=== PATIENT | female | born 1950 | race Caucasian/White ===

== ENCOUNTER 2016-08-06 12:08 | Inpatient (IN) | payer OTHER ==
[~2016-08-06] VITALS: Ht 160 cm; Wt 113.4 kg
[~2016-08-06 12:08] MED LIST: HYDR-2666 PO; HYDR-963 PO; OXYC30TA PO
[2016-08-06 13:06] LABS: BASO # 0.1 x10^3/uL (0.0-0.2); BASO % 1 % (0-3); EOS % 0 % (0-3); HEMATOCRIT 38.3 % (36.0-47.0); HEMOGLOBIN 12.5 g/dL (12.0-15.5); LYMPH # 2.1 x10^3/uL (1.0-4.8); LYMPH % 14 % (24-48); MEAN CORPUSCULAR HEMOGLOBIN 29 pg (25-35); MEAN CORPUSCULAR HGB CONC 33 g/dL (31-37); MEAN CORPUSCULAR VOLUME 90 fL (79-100); MONO % 8 % (0-9); NEUT % 77 % (31-73); PLATELET COUNT 373 x10^3/uL (140-400); RED BLOOD COUNT 4.26 x10^6/uL (3.50-5.40); RED CELL DISTRIBUTION WIDTH 13.8 % (11.5-14.5); WHITE BLOOD COUNT 14.8 x10^3/uL (4.0-11.0)
[2016-08-06 13:08] LABS: BILIRUBIN,URINE SMALL (NEG); GLUCOSE,URINE NEGATIVE (NEG); NITRITE,URINE NEGATIVE (NEG); PROTEIN,URINE 30 mg/dL (NEG-TRACE); UROBILINOGEN,URINE 0.2 mg/dL (0.2 mg/dL)
--- NOTE | 2016-08-06 13:11 | PHYS DOC ---
Past Medical History Past Medical History: GERD, Hypertension, MRSA, Other Additional Past Medical Histor: "bladder problems" Past Surgical History: Appendectomy, Cholecystectomy, Tonsillectomy, Other Additional Past Surgical Histo: R AKA, hernia Alcohol Use: None Drug Use: None Adult General Chief Complaint Chief Complaint: ABDOMINAL PAIN HPI HPI 66-year-old female who states she's having significant lower abdominal pain is worse over last several days. She is on ongoing triple therapy for H. pylori infection. She also recently finished antibiotic course for a UTI. She states she's had loose stools for the last several days and she believes her last bowel movement was earlier today. She localizes all her pain primarily to the lower abdomen but does state diffusely is tender. She's had history of cholecystectomy, appendectomy. She placed a call to her regular physician on Thursday who was going to schedule her for CT scan for tomorrow but she states her pain is too severe to make that imaging appointment. Patient is somewhat hard of hearing so history is primarily obtained from sister at bedside. Review of Systems Review of Systems Constitutional: Denies fever or chills [] Eyes: Denies change in visual acuity, redness, or eye pain [] HENT: Denies nasal congestion or sore throat [] Respiratory: Denies cough or shortness of breath [] Cardiovascular: No additional information not addressed in HPI [] GI: Has abdominal pain, has nausea, denies vomiting, denies bloody stools, has diarrhea [] : Denies dysuria or hematuria [] Musculoskeletal: Denies back pain or joint pain [] Integument: Denies rash or skin lesions [] Neurologic: Denies headache, focal weakness or sensory changes [] Endocrine: Denies polyuria or polydipsia [] Current Medications Current Medications Current Medications Medications (Trade) Dose Ordered Sig/Haim Start Time Stop Time Status Last Admin Dose Admin Info (Do NOT chart on this entry -- for MONITORING) 1 each PRN DAILY PRN 08/06/16 13:45 08/08/16 13:44 Iohexol (Omnipaque 300 Mg/ml) 75 ml 1X ONCE 08/06/16 13:45 08/06/16 13:46 DC 08/06/16 13:56 75 ML Morphine Sulfate 4 mg 1X ONCE 08/06/16 13:15 08/06/16 13:16 DC 08/06/16 13:49 4 MG Ondansetron HCl (Zofran) 4 mg 1X ONCE 08/06/16 13:15 08/06/16 13:16 DC 08/06/16 13:49 4 MG Sodium Chloride (Iv Sodium Chloride 0.9% 1000ml Bag) 1,000 ml @ 1,000 mls/hr 1X ONCE 08/06/16 13:15 08/06/16 14:14 DC 08/06/16 13:50 1,000 MLS/HR Allergies Allergies Allergies Coded Allergies Type Severity Reaction Last Updated Verified codeine Allergy Unknown 11/08/14 Yes Physical Exam Physical Exam Constitutional: Well developed, well nourished, no acute distress, non-toxic appearance. [] HENT: Normocephalic, atraumatic, bilateral external ears normal, oropharynx moist, no oral exudates, nose normal. [] Eyes: PERRLA, EOMI, conjunctiva normal, no discharge. [] Neck: Normal range of motion, no tenderness, supple, no stridor. [] Cardiovascular:Heart rate regular rhythm, no murmur [] Lungs & Thorax: Bilateral breath sounds clear to auscultation [] Abdomen: Bowel sounds normal, soft, moderate lower abdominal tenderness, no masses, no pulsatile masses. [] Skin: Warm, dry, no erythema, no rash. [] Back: No tenderness, no CVA tenderness. [] Extremities: No tenderness, no cyanosis, no clubbing, ROM intact, no edema. [] Neurologic: Alert and oriented X 3, normal motor function, normal sensory function, no focal deficits noted. [] Psychologic: Affect normal, judgement normal, mood normal. [] Current Patient Data Vital Signs Vital Signs Date Time Temp Pulse Resp B/P Pulse Ox O2 Delivery O2 Flow Rate FiO2 08/06/16 14:09 89 16 135/89 94 Room Air 08/06/16 12:12 99.0 99.0 Lab Values Laboratory Tests Test 08/06/16 12:50 08/06/16 12:55 White Blood Count 14.8x10^3/uL (4.0-11.0) H Red Blood Count 4.26x10^6/uL (3.50-5.40) Hemoglobin 12.5g/dL (12.0-15.5) Hematocrit 38.3% (36.0-47.0) Mean Corpuscular Volume 90fL (79-100) Mean Corpuscular Hemoglobin 29pg (25-35) Mean Corpuscular Hemoglobin Concent 33g/dL (31-37) Red Cell Distribution Width 13.8% (11.5-14.5) Platelet Count 373x10^3/uL (140-400) Neutrophils (%) (Auto) 77% (31-73) H Lymphocytes (%) (Auto) 14% (24-48) L Monocytes (%) (Auto) 8% (0-9) Eosinophils (%) (Auto) 0% (0-3) Basophils (%) (Auto) 1% (0-3) Neutrophils # (Auto) 11.4x10^3uL (1.8-7.7) H Lymphocytes # (Auto) 2.1x10^3/uL (1.0-4.8) Monocytes # (Auto) 1.2x10^3/uL (0.0-1.1) H Eosinophils # (Auto) 0.0x10^3/uL (0.0-0.7) Basophils # (Auto) 0.1x10^3/uL (0.0-0.2) Sodium Level 142mmol/L (136-145) Potassium Level 3.6mmol/L (3.5-5.1) Chloride Level 105mmol/L (98-107) Carbon Dioxide Level 30mmol/L (21-32) Anion Gap 7 (6-14) Blood Urea Nitrogen 13mg/dL (7-20) Creatinine 0.9mg/dL (0.6-1.0) Estimated GFR (Cockcroft-Gault) 62.6 Glucose Level 115mg/dL (70-99) H Calcium Level 8.4mg/dL (8.5-10.1) L Total Bilirubin 0.4mg/dL (0.2-1.0) Direct Bilirubin 0.1mg/dL (0.0-0.2) Aspartate Amino Transferase (AST) 22U/L (15-37) Alanine Aminotransferase (ALT) 12U/L (14-59) L Alkaline Phosphatase 90U/L (46-116) Troponin I Quantitative < 0.017ng/mL (0.000-0.055) Total Protein 7.4g/dL (6.4-8.2) Albumin 2.2g/dL (3.4-5.0) L Lipase 92U/L (73-393) Urine Collection Type Unknown Urine Color [place] Urine Clarity Clear Urine pH 6.0 Urine Specific [place] 1.025 Urine Protein 30mg/dL (NEG-TRACE) Urine Glucose (UA) Negativemg/dL (NEG) Urine Ketones (Stick) 40mg/dL (NEG) Urine Blood Negative (NEG) Urine Nitrite Negative (NEG) Urine Bilirubin Small (NEG) Urine Urobilinogen Dipstick 0.2mg/dL (0.2 mg/dL) Urine Leukocyte Esterase Trace (NEG) Urine RBC Occ/HPF (0-2) Urine WBC Occ/HPF (0-4) Urine Squamous Epithelial Cells Few/LPF Urine Bacteria 0/HPF (0-FEW) Urine Mucus Mod/LPF Laboratory Tests 08/06/16 12:50 Laboratory Tests 08/06/16 12:50 EKG EKG EKG as interpreted by me shows a sinus rhythm with a rate of 80 bpm. There are no acute ischemic findings on this EKG. Intervals are normal. EKG does not meet STEMI criteria. Radiology/Procedures Radiology/Procedures CT of the abdomen/pelvis with IV contrast demonstrates the following: Indication low abdominal pain for 2 weeks. Axial images through the abdomen and pelvis were obtained. Oral contrast was not administered. 75 cc of Omnipaque 300 was. Note is made of a previous examination of the abdomen 04/05/2012. A previous examination of the abdomen and pelvis 02/13/2011 is also noted. The lung bases are clear. Postoperative changes in the abdominal wall are noted. There is some fatty infiltration of the liver. A hepatic mass is not seen. Clips are noted in the gallbladder fossa. The spleen appears unremarkable. The pancreas appears unremarkable. No renal or adrenal abnormalities are seen. Acute finding in the abdomen is not seen. There are occasional sigmoid diverticula. There is some suggested wall thickening involving the sigmoid colon extending over approximately a 5 to 6 cm segment. There may be some associated low-grade inflammatory changes. A discrete abscess, amenable to drainage is not seen. A soft tissue mass in the sigmoid colon is not excluded and if colonoscopy has not been recently performed this should be considered. Additional finding in the pelvis is not seen. Scoliosis and degenerative changes are noted in the lumbar spine. IMPRESSION: Suggested pathology involving the sigmoid colon. Low-grade inflammation in the sigmoid colon is not excluded but an underlying mass should be considered. If colonoscopy has not been recently performed this should be considered Course & Med Decision Making Course & Med Decision Making Pertinent Labs and Imaging studies reviewed. (See chart for details) This 66-year-old female who's having lower abdominal tenderness while on triple therapy for an H. pylori infection will have a CT of her abdomen and pelvis to rule out any acute cause. A fluid bolus and blood work will be obtained. Her bloodwork does not reveal any acute abnormalities. CT of her abdomen and pelvis mistreated an area of low-grade inflammation in the sigmoid colon but an underlying mass could not be ruled out and so a colonoscopy is recommended. I' ll be admitting her under Dr. Heaton for these findings and will be adding a GI consult to have a colonoscopy done to delineate the area of the sigmoid colon in question. I discussed the CT findings with Dr. Heaton who agreed to accept the patient for further evaluation treatment. Dragon Disclaimer Dragon Disclaimer This electronic medical record was generated, in whole or in part, using a voice recognition dictation system. Departure Departure Impression: Primary Impression: Abdominal pain Disposition: ADMITTED INPATIENT Admitting Physician: Grazyna Heaton Condition: STABLE Referrals: Yao HEATON MD (PCP) JOSE GODFREY DO Aug 06, 2016 13:11
[2016-08-06] MEDS ORDERED: MORPHINE SULFATE 4 MG/ML DISP.SYRIN. IV ONE ×2 (13:15→17:30)
[2016-08-06] MEDS ORDERED: IV NORMAL SALINE 1000ML BAG 1,000 ML IV ONE (13:15)
[2016-08-06] MEDS ORDERED: ONDANSETRON PF 4 MG/2 ML VIAL. IV ONE (13:15)
[2016-08-06 13:28] LABS: CALCIUM 8.4 mg/dL (8.5-10.1); CREATININE 0.9 mg/dL (0.6-1.0); GFR 62.6; POTASSIUM 3.6 mmol/L (3.5-5.1)
[2016-08-06 13:33] LABS: BACTERIA,URINE 0 /HPF (0-FEW); RBC,URINE OCC /HPF (0-2); SQUAMOUS EPITHELIAL CELL,UR FEW /LPF; WBC,URINE OCC /HPF (0-4)
[2016-08-06 13:35] LABS: ALBUMIN 2.2 g/dL (3.4-5.0); DIRECT BILIRUBIN 0.1 mg/dL (0.0-0.2); TOTAL BILIRUBIN 0.4 mg/dL (0.2-1.0); TOTAL PROTEIN 7.4 g/dL (6.4-8.2)
[2016-08-06] MEDS ORDERED: IOHEXOL 300 MG/ML 75 ML VIAL IV ONE (13:45)
[2016-08-06] MEDS ORDERED: CONTRAST GIVEN MC PRN (13:45)
--- NOTE | 2016-08-06 14:23 | EKG ---
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
--- NOTE | 2016-08-06 14:30 | RAD ---
Indication low abdominal pain for 2 weeks. Axial images through the abdomen and pelvis were obtained. Oral contrast was not administered. 75 cc of Omnipaque 300 was. Note is made of a previous examination of the abdomen 04/05/2012. A previous examination of the abdomen and pelvis 02/13/2011 is also noted. The lung bases are clear. Postoperative changes in the abdominal wall are noted. There is some fatty infiltration of the liver. A hepatic mass is not seen. Clips are noted in the gallbladder fossa. The spleen appears unremarkable. The pancreas appears unremarkable. No renal or adrenal abnormalities are seen. Acute finding in the abdomen is not seen. There are occasional sigmoid diverticula. There is some suggested wall thickening involving the sigmoid colon extending over approximately a 5 to 6 cm segment. There may be some associated low-grade inflammatory changes. A discrete abscess, amenable to drainage is not seen. A soft tissue mass in the sigmoid colon is not excluded and if colonoscopy has not been recently performed this should be considered. Additional finding in the pelvis is not seen. Scoliosis and degenerative changes are noted in the lumbar spine. IMPRESSION: Suggested pathology involving the sigmoid colon. Low-grade inflammation in the sigmoid colon is not excluded but an underlying mass should be considered. If colonoscopy has not been recently performed this should be considered
[2016-08-06] MEDS ORDERED: ONDANSETRON PF 4 MG/2 ML VIAL. IV PRN (15:15)
[2016-08-06] MEDS ORDERED: ACETAMINOPHEN 325 MG TABLET. PO PRN (15:15)
--- NOTE | 2016-08-06 15:50 | ACF ---
Admission Forms Criteria ABDOMINAL PAIN Clinical Indications for Admission to Inpatient Care (Place 'X' for any and all applicable criteria): Admission is indicated for ANY ONE of the following(1)(2)(3)(4)(5): [X]I. Inpatient admission required rather than observation care (Also use Abdominal Pain: Observation Care, as appropriate) because of ANY ONE of the following: [ ]a) Severe pain requiring acute inpatient management [X]b) Identification of etiology/finding that requires inpatient care (eg, aortic dissection, free air) [ ]c) Absent bowel sounds with complete ileus(6) [ ]d) Suspected toxic megacolon [ ]e) Severe electrolyte abnormalities requiring inpatient care [ ]f) High fever or infection requiring inpatient admission as indicated by ANY ONE of following(7)(8): [ ] i) Appropriate outpatient or observational care antimicrobial treatment unavailable, not effective, or not feasible [ ] ii) Documented bacteremia [ ] iii) Temperature > 104.9 degrees F (oral) [ ] iv) T >103.1 F (oral) or < 96.8 F(rectal) that does not respond to all emergency treatment measures [ ]g) Signs of intestinal obstruction [B] [ ]h) Hemodynamic instability [ ]i) IV fluid to replace significant ongoing losses (greater than 3 L/m2 per day) (12)(13) [ ]j) Percutaneous or open drainage (eg, abscess, biliary tract ) procedures [ ]k) Parenteral nutrition regimen that must be implemented on inpatient basis [ ]l) Other condition,treatment or monitoring requiring inpatient admission. [ ]II. Peritoneal signs present [ ]III. Surgery needed that cannot be performed on an ambulatory basis. [ ]IV. Evaluation requires patient to not eat or drink for extended period ( eg, more than 24 hours). [ ]V. Contraindications and/or Inappropriate clinical situations for Observational Care in patients with abdominal pain, when ANY ONE of the following is required: [ ]a) Thorough evaluation is required to prevent catastrophic events due to delays in diagnosing (e.g.Mesenteric ischemia) 1,3 [ ]b) Patient with severe pathology or with chronic symptoms unlikely to improve in the ED stay (3) [ ]. General contraindications and/or Inappropriate clinical situations for Observational Care in patients with abdominal pain, when ANY ONE of the following is required: [ ]a) Prediction of prolongation of LOS based on ANY ONE of the following may be considered as a contraindication for observational care 2, 3, 4, 5, 6, 7, 8, 9, 10, 11 [ ]i) Age > 65 yrs. [ ]ii) Patient arriving by ambulance [ ]iii) Patient with high acuity [ ]iv) Patient requiring vital sign monitoring [ ]v) Patient on IV medication [ ]b) Systolic blood pressures 180mmHg 3,12 [ ]c) Patient with altered mental status including delirium and other alteration of consciousness, (3) [ ]d) Patient whose discharge disposition will be to a [facility] home or rehabilitation home should not be managed in Emergency Department Observation Unit. CMS rule requires 3 days hospital stay before such placement.3,13 [ ]e) Patient with failure to thrive due to broad array of etiologies 3,16,17 [ ]f) Inability to ambulate 3,14 Extended stay beyond goal length of stay may be needed for(2)(3): [ ]a) Persistent abdominal pain with suspected intra-abdominal process [ ]b) Diagnosed condition requiring continued stay (e.g., pancreatitis, complicated diverticulitis) [ ]c) Surgery (e.g., colectomy) The original [facility] content created by [employer] has been revised. The portions of the content which have been revised are identified through the use of italic text or in bold, and [email or web address] has neither reviewed nor approved the modified material.All other unmodified content is copyright [employer]. Please see references footnoted in the original [facility] edition 2016 Admission Criteria Met?: Yes ANDIE SALES Aug 06, 2016 15:50
--- NOTE | 2016-08-06 17:37 | PDOC ---
Provider Note Provider Note H&P dictated # [id number] 1. intractable abdominal pain, sigmoid colon mass vs inflammation 2. H.pylori antibodies with presumed gastritis 3. leukocytosis, acute 4. dehydration 5. moderately severe protein malnutrition Yao HEATON MD Aug 06, 2016 17:37
[2016-08-06] MEDS: IV NORMAL SALINE 1000ML BAG 1,000 ML IV SCH (17:40)
[2016-08-06] MEDS: FENTANYL PF 100 MCG/2 ML VIAL. IV PRN (17:53)
--- NOTE | 2016-08-06 18:10 | HP ---
ADMIT DATE: 08/06/2016 ADMISSION DIAGNOSES: Intractable abdominal pain with sigmoid colon mass. HISTORY OF PRESENT ILLNESS: This is a 66-year-old white female who has been undergoing evaluation for abdominal pain for the last several weeks. She presented to the office, was found to have a urinary tract infection, treated with Cipro. Lab work showed positive antibodies to H. pylori and she did have epigastric pain also at that time and so she has just been started on a triple antibiotic regimen for lab. Since starting that she has had increase in her nausea with change in her bowel movements. She has had persistent lower abdominal pain also despite treatment of urinary tract infection. Because of that, a CT scan was ordered as an outpatient, which was scheduled for tomorrow, but her pain got so severe today that her daughter brought her to the Emergency Room hence she is seen and evaluated. Her CT scan here suggests a new sigmoid colon mass. Also showed a leukocytosis, low albumin, high specific gravity in her urine with ketones present. PAST MEDICAL HISTORY: Significant for hypertension, GERD, MRSA, osteoarthritis with a failed right knee replacement leading eventually to AKA, she has chronic hearing loss and is for all practical purposes deaf. PAST SURGICAL HISTORY: Include appendectomy, cholecystectomy, tonsillectomy, right AKA, and hernia repair. ALLERGIES: CODEINE AND MEPERIDINE. HOME MEDICATIONS: Include hydrocodone/APAP 5/325 1-2 q. 6 hours p.r.n. pain and oxycodone 30 mg 1 tablet b.i.d. She was also recently started on triple antibiotic therapy for H. pylori, but most likely the metronidazole from that is causing some nausea. FAMILY HISTORY: Noncontributory. SOCIAL HISTORY: She does not smoke or drink. She lives with her daughter who is present. REVIEW OF SYSTEMS: RESPIRATORY: She denies any chest pain. She denies any cough or pulmonary symptoms. ABDOMINAL: As above. GENITOURINARY: She has been making urine. No dysuria since finishing her antibiotics. No flank pain. HEENT: She is deaf. No change in her vision. MUSCULOSKELETAL: She is pretty much wheelchair bound, has degenerative joint disease, status post failed right knee replacement, resulting in right AKA. NEUROLOGIC: Negative for headaches or seizures. PHYSICAL EXAMINATION: VITAL SIGNS: Blood pressure 135/89, pulse 89, respiratory rate 16, room air pulse ox 94%. GENERAL: She is not in acute amount of distress at this point, but does admit to abdominal discomfort. HEENT: Decreased hearing. Sclerae nonicteric. Conjunctivae are clear. Mucous membranes are moist. No sinus congestion or tenderness. NECK: Supple. HEART: Regular rate and rhythm, sinus rhythm on monitor. LUNGS: Clear, normal respiratory effort. ABDOMEN: Tender in epigastric and left lower quadrant without peritoneal signs. No significant distention. No hepatosplenomegaly, no rebound. She is obese. EXTREMITIES: There is no clubbing, cyanosis or peripheral edema. Arthritic changes of the hands are noted. SKIN: Without any significant lesions. Her stump looks healthy. LABORATORY DATA: White count is 14.6, hemoglobin 12.5, left shift with 77% neutrophils, platelets are adequate. Chemistries, electrolytes are normal. Glucose 115, calcium is low at 8.4. Her albumin is also low at 2.2. Troponins negative. Lipase is normal. Liver function tests are normal. Urinalysis is evangelista, but clear with a pH of 6, specific gravity of 1.025, there is 30 protein, there is 40 ketones, small amount of bilirubin, trace of leukocyte esterase, but no bacteria, squamous epithelial cells are few. IMAGING STUDIES: Abdominal pelvis CT suggest pathology in the sigmoid colon, low grade inflammatory process in the colon is not excluded, but an underlying mass is more likely. There is a wall thickening in the sigmoid colon extending 5-6 cm. Lung bases were clear. Postop changes in the abdominal wall were noted. Fatty infiltration of liver is noted. Gallbladder is absent. Spleen was normal. Pancreas was unremarkable. ASSESSMENT: 1. Abdominal pain appears to be multifactorial, not responding to outpatient treatment and worsening. 2. Helicobacter pylori antibodies with presumed gastritis. 3. Sigmoid colon inflammation versus mass. 4. Leukocytosis. 5. Osteoarthritis, on chronic narcotics. 6. Chronic pain. PLAN: She is admitted, tried to control her pain, hydrated, GI is consulted. She may need an EGD and a colonoscopy. Labs will be monitored. We will start IV Cipro and IV Flagyl. She is not tolerating her oral meds. W Alyssia HEATON MD DR: DANEIL/amparo JOB#: [id number] / [id number]
[2016-08-06] MEDS ORDERED: OXYB5TAB7 PO (18:53)
[2016-08-06] MEDS ORDERED: LISI-334 PO (18:53)
[2016-08-06 19:47] VITALS: BP 99/62
[2016-08-06] MEDS: MORPHINE SULFATE 4 MG/ML DISP.SYRIN. IV PRN (20:17)
[2016-08-06] MEDS: BISMUTH SUBSALICYLATE 262 MG/15 ML ORAL.SUSP 236ML BOTTLE. PO SCH (20:55)
[2016-08-06] MEDS: METRONIDAZOLE 500mg PREMIX 100 ML IV SCH (22:48)
[2016-08-06 22:58] VITALS: BP 113/53
[2016-08-07] MEDS: FENTANYL PF 100 MCG/2 ML VIAL. IV PRN ×3 (00:21→14:24)
[2016-08-07] MEDS: IV NORMAL SALINE 1000ML BAG 1,000 ML IV SCH ×2 (01:09→06:17)
[2016-08-07 02:35] VITALS: BP 132/68
[2016-08-07] MEDS: MORPHINE SULFATE 4 MG/ML DISP.SYRIN. IV PRN ×4 (06:16→20:45)
[2016-08-07 06:31] LABS: CALCIUM 7.8 mg/dL (8.5-10.1); CREATININE 0.8 mg/dL (0.6-1.0); GFR 71.8; POTASSIUM 4.1 mmol/L (3.5-5.1)
[2016-08-07 06:37] LABS: BASO % 0 % (0-3); EOS % 1 % (0-3); HEMOGLOBIN 10.9 g/dL (12.0-15.5); LYMPH # 2.8 x10^3/uL (1.0-4.8); LYMPH % 22 % (24-48); MEAN CORPUSCULAR HEMOGLOBIN 29 pg (25-35); MEAN CORPUSCULAR HGB CONC 33 g/dL (31-37); MEAN CORPUSCULAR VOLUME 89 fL (79-100); MONO % 10 % (0-9); NEUT % 66 % (31-73); PLATELET COUNT 328 x10^3/uL (140-400); RED BLOOD COUNT 3.71 x10^6/uL (3.50-5.40); WHITE BLOOD COUNT 12.6 x10^3/uL (4.0-11.0)
[2016-08-07 07:00] VITALS: BP 107/63
[2016-08-07] MEDS: METRONIDAZOLE 500mg PREMIX 100 ML IV SCH ×2 (08:40→20:11)
[2016-08-07] MEDS: BISMUTH SUBSALICYLATE 262 MG/15 ML ORAL.SUSP 236ML BOTTLE. PO SCH ×4 (08:40→20:47)
--- NOTE | 2016-08-07 09:04 | PDOC2 ---
GI CONSULT Reason For Consult: Abd pain HPI: HPI: 66 y/o female, hard of hearing, w/ >2 week h/o abdominal pain, mostly lower. Saw her PCP, Dr. Cisse, was treated w/ Cipro for UTI. Also had labs + for H. pylori, treated w/ Prevpac (currently). Was supposed to have outpatient CT for ongoing pain today but came to the ER yesterday. Most of history from daughter , Viky. Pain is fairly constant, severe, and is w/o obvious triggering or alleviating factors. Some h/o constipation but recently has had soft stools ( "that are firming up"). Once last week possibly noted some red blood in the toilet, no recurrence. Her granddaughter also thought she might have seen a worm (also no recurrence). Associated w/ some n/v (no pattern), and low-grade fever worse in the evenings. Takes occasional antacids for heartburn. Perhaps has occasional pill dysphagia (denies w/ solids or liquids). Labs: WBC 14.8 (now 12.6), Hgb 12.5 (now 10.9), normal indices, normal LFTs and lipase, UA +bili +leukocyte esterase. CT A/P suggestive of wall thickening in the sigmoid colon w/ possible low grade inflammation. Admitted, started on IV atbx, kept NPO, told needed a colonoscopy. Most recent GI workup: EGD 02/14/[address] Connell: normal esophagus, gastritis, duodenal diverticulum. Colonoscopy 02/14/11 to hepatic flexure by Dr. Connell: sigmoid diverticulosis, non-bleeding internal hemorrhoids. Barium enema 02/19/11: sigmoid diverticulosis, moderately redundant colon. Previous GI workup: Colonoscopy 2008 (to cecum) by Dr. Ruiz: adenomatous polyp in transverse colon , diverticulosis. Additionally had colonoscopies in 2004 (Dr. Christian) and 2000 (Dr. Neal). EGD [address] Ruiz: neg esophageal biopsies. EGD [address] Christian: antral biopsies neg for pathology. EGD [address] Neal: +H. pylori, was treated. 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 w/ subsequent MRSA infection), tonsillectomy, cholecystectomy, appendectomy FH: Family History: No pertinent hx Social History: Smoke: No ALCOHOL: none Drugs: None ROS: GEN: Denies fevers, chills, sweats HEENT: Denies blurred vision, sore throat CV: Denies chest pain RESP: Denies shortness of air, cough GI: Per HPI : Denies hematuria, dysuria ENDO: Denies weight changes NEURO: Denies confusion, dizziness MSK: Denies weakness, joint pain/swelling SKIN: Denies jaundice, pruritus VItals: Vitals: Vital Signs Date Time Temp Pulse Resp B/P Pulse Ox O2 Delivery O2 Flow Rate FiO2 08/07/16 07:00 99.4 83 18 107/63 93 Room Air 99.4 Labs: Labs: Laboratory Tests Test 08/06/16 12:50 08/06/16 12:55 08/07/16 06:15 White Blood Count 14.8x10^3/uL (4.0-11.0) 12.6x10^3/uL (4.0-11.0) Red Blood Count 4.26x10^6/uL (3.50-5.40) 3.71x10^6/uL (3.50-5.40) Hemoglobin 12.5g/dL (12.0-15.5) 10.9g/dL (12.0-15.5) Hematocrit 38.3% (36.0-47.0) 33.0% (36.0-47.0) Mean Corpuscular Volume 90fL (79-100) 89fL (79-100) Mean Corpuscular Hemoglobin 29pg (25-35) 29pg (25-35) Mean Corpuscular Hemoglobin Concent 33g/dL (31-37) 33g/dL (31-37) Red Cell Distribution Width 13.8% (11.5-14.5) 14.0% (11.5-14.5) Platelet Count 373x10^3/uL (140-400) 328x10^3/uL (140-400) Neutrophils (%) (Auto) 77% (31-73) 66% (31-73) Lymphocytes (%) (Auto) 14% (24-48) 22% (24-48) Monocytes (%) (Auto) 8% (0-9) 10% (0-9) Eosinophils (%) (Auto) 0% (0-3) 1% (0-3) Basophils (%) (Auto) 1% (0-3) 0% (0-3) Neutrophils # (Auto) 11.4x10^3uL (1.8-7.7) 8.3x10^3uL (1.8-7.7) Lymphocytes # (Auto) 2.1x10^3/uL (1.0-4.8) 2.8x10^3/uL (1.0-4.8) Monocytes # (Auto) 1.2x10^3/uL (0.0-1.1) 1.3x10^3/uL (0.0-1.1) Eosinophils # (Auto) 0.0x10^3/uL (0.0-0.7) 0.1x10^3/uL (0.0-0.7) Basophils # (Auto) 0.1x10^3/uL (0.0-0.2) 0.0x10^3/uL (0.0-0.2) Sodium Level 142mmol/L (136-145) 143mmol/L (136-145) Potassium Level 3.6mmol/L (3.5-5.1) 4.1mmol/L (3.5-5.1) Chloride Level 105mmol/L (98-107) 109mmol/L (98-107) Carbon Dioxide Level 30mmol/L (21-32) 26mmol/L (21-32) Anion Gap 7 (6-14) 8 (6-14) Blood Urea Nitrogen 13mg/dL (7-20) 10mg/dL (7-20) Creatinine 0.9mg/dL (0.6-1.0) 0.8mg/dL (0.6-1.0) Estimated GFR (Cockcroft-Gault) 62.6 71.8 Glucose Level 115mg/dL (70-99) 81mg/dL (70-99) Calcium Level 8.4mg/dL (8.5-10.1) 7.8mg/dL (8.5-10.1) Total Bilirubin 0.4mg/dL (0.2-1.0) Direct Bilirubin 0.1mg/dL (0.0-0.2) Aspartate Amino Transf (AST/SGOT) 22U/L (15-37) Alanine Aminotransferase (ALT/SGPT) 12U/L (14-59) Alkaline Phosphatase 90U/L (46-116) Troponin I Quantitative < 0.017ng/mL (0.000-0.055) Total Protein 7.4g/dL (6.4-8.2) Albumin 2.2g/dL (3.4-5.0) Lipase 92U/L (73-393) Urine Collection Type Unknown Urine Color [place] Urine Clarity Clear Urine pH 6.0 Urine Specific [place] 1.025 Urine Protein 30mg/dL (NEG-TRACE) Urine Glucose (UA) Negativemg/dL (NEG) Urine Ketones (Stick) 40mg/dL (NEG) Urine Blood Negative (NEG) Urine Nitrite Negative (NEG) Urine Bilirubin Small (NEG) Urine Urobilinogen Dipstick 0.2mg/dL (0.2 mg/dL) Urine Leukocyte Esterase Trace (NEG) Urine RBC Occ/HPF (0-2) Urine WBC Occ/HPF (0-4) Urine Squamous Epithelial Cells Few/LPF Urine Bacteria 0/HPF (0-FEW) Urine Mucus Mod/LPF Allergies: Coded Allergies: codeine (Verified Allergy, Unknown, 11/08/14) meperidine (Verified Adverse Reaction, Intermediate, Nausea and Vomiting, 08/06/16) Medications: Current Medications Medications (Trade) Dose Ordered Sig/Haim Route PRN Reason Start Time Stop Time Status Last Admin Dose Admin Sodium Chloride (Iv Sodium Chloride 0.9% 1000ml Bag) 1,000 ml @ 1,000 mls/hr 1X ONCE IV 08/06/16 13:15 08/06/16 14:14 DC 08/06/16 13:50 Morphine Sulfate 4 mg 1X ONCE IV 08/06/16 13:15 08/06/16 13:16 DC 08/06/16 13:49 Ondansetron HCl (Zofran) 4 mg 1X ONCE IV 08/06/16 13:15 08/06/16 13:16 DC 08/06/16 13:49 Iohexol (Omnipaque 300 Mg/ml) 75 ml 1X ONCE IV 08/06/16 13:45 08/06/16 13:46 DC 08/06/16 13:56 Fentanyl Citrate 50 mcg 50 mcg PRN Q2HR PRN IV PAIN 08/06/16 15:15 08/07/16 15:14 08/07/16 08:43 Sodium Chloride (Iv Sodium Chloride 0.9% 1000ml Bag) 1,000 ml @ 100 mls/hr Q10H IV 08/06/16 15:09 08/07/16 15:08 08/07/16 06:17 Morphine Sulfate 4 mg 4 mg PRN Q4HRS PRN IV PAIN 08/06/16 17:30 08/07/16 06:16 Levofloxacin/ Dextrose 100 ml @ 100 mls/hr Q24H IV 08/06/16 18:00 08/06/16 20:55 Metronidazole (FLAGYL 500Mmg PREMIX) 100 ml @ 100 mls/hr Q12HR IV 08/06/16 21:00 08/07/16 08:40 Bismuth Subsalicylate (Pepto-Bismol) 524 mg QID PO 08/06/16 21:00 08/07/16 08:40 Imaging: Imaging: CT A/P w/ IV contrast 08/06/16 IMPRESSION: Suggested pathology involving the sigmoid colon. Low-grade inflammation in the sigmoid colon is not excluded but an underlying mass should be considered. If colonoscopy has not been recently performed this should be considered. PE: GEN: NAD, [place], laying in bed w/ lights off HEENT: Atraumatic, PERRL LUNGS: CTAB anteriorly HEART: RRR ABD: BS+, diffusely tender to light palpation/placement of stethoscope - worse in BLQ/suprapubic EXTREMITY: right AKA SKIN: No rashes, no jaundice NEURO/PSYCH: A & O 3 A/P: A/P: Abd pain, n/v -diffuse but worse BLQ/suprapubic, no triggers -saw PCP, treated for UTI, also given Prevpac for +H. pylori serology Abnormal CT A/P -wall thickening in the sigmoid colon w/ possible low grade inflammation -NPO on IV atbx -h/o diverticulosis on colonoscopies H/o GERD -previous EGDs as above, last 2010 w/ normal esophagus, gastritis, duodenal diverticulum -reflux noted on previous EGDs -takes antacids occasionally H/o H. pylori -on EGD in 2000, treated CRC screen, h/o adenomatous colon polyp -last colonoscopy 2010 to hepatic flexure, followed by barium enema ---> diverticulosis, internal hemorrhoids, redundancy -colonoscopy to cecum in 2008 -- D/w Dr. Connell - ?diverticulitis - agree w/ atbx, medical therapy for now. Could consider colonoscopy later on. GIFTY PARKINSON Aug 07, 2016 09:04
--- NOTE | 2016-08-07 09:05 | PDOC ---
PROGRESS NOTES Subjective Subjective Patient continues to describe severe lower abdominal pain today that is not improved from yesterday. She had one loose bowel movement this morning. She still has some nausea but has not vomited and was eating breakfast when interviewed Objective Objective Vital Signs Date Time Temp Pulse Resp B/P Pulse Ox O2 Delivery O2 Flow Rate FiO2 08/07/16 07:00 99.4 83 18 107/63 93 Room Air 99.4 Intake and Output 08/07/16 07:00 Intake Total 0 ml Balance 0 ml Intake Oral 0 ml # Voids 2 # Bowel Movements 1 Physical Exam Abdomen: Soft, No masses, Other (Severe tenderness to palpation throughout abdomen, specifically in lower quadrants) Heart: Regular rate Extremities: No clubbing, No cyanosis, No edema General: Alert, Cooperative Lungs: Clear to auscultation Neuro: Normal speech Psych/Mental Status: Mental status NL Skin: No breakdown Assessment Assessment Problems Medical Problems: (1) Abdominal pain Status: Acute (2) H. pylori antibody positive Status: Acute (3) Leukocytosis Status: Acute (4) Sigmoid Colon pathology Status: Acute Plan Plan of Care Medical Problems: (1) Abdominal pain- await GI recommendations, continue IV Levofloxacin and IV Metronidazole but may need to stop metronidazole as it may be causing nausea Status: Acute (2) H. pylori antibody positive, treated in the past Status: Acute (3) Leukocytosis- improved today, continue antibiotics Status: Acute (4) Sigmoid Colon pathology- await GI recommendations, consider Colonoscopy/EGD Status: Acute Comment Review of Relevant I have reviewed the following items marcio (where applicable) has been applied. Labs Laboratory Tests Test 08/06/16 12:50 08/06/16 12:55 08/07/16 06:15 White Blood Count 14.8x10^3/uL (4.0-11.0) 12.6x10^3/uL (4.0-11.0) Red Blood Count 4.26x10^6/uL (3.50-5.40) 3.71x10^6/uL (3.50-5.40) Hemoglobin 12.5g/dL (12.0-15.5) 10.9g/dL (12.0-15.5) Hematocrit 38.3% (36.0-47.0) 33.0% (36.0-47.0) Mean Corpuscular Volume 90fL (79-100) 89fL (79-100) Mean Corpuscular Hemoglobin 29pg (25-35) 29pg (25-35) Mean Corpuscular Hemoglobin Concent 33g/dL (31-37) 33g/dL (31-37) Red Cell Distribution Width 13.8% (11.5-14.5) 14.0% (11.5-14.5) Platelet Count 373x10^3/uL (140-400) 328x10^3/uL (140-400) Neutrophils (%) (Auto) 77% (31-73) 66% (31-73) Lymphocytes (%) (Auto) 14% (24-48) 22% (24-48) Monocytes (%) (Auto) 8% (0-9) 10% (0-9) Eosinophils (%) (Auto) 0% (0-3) 1% (0-3) Basophils (%) (Auto) 1% (0-3) 0% (0-3) Neutrophils # (Auto) 11.4x10^3uL (1.8-7.7) 8.3x10^3uL (1.8-7.7) Lymphocytes # (Auto) 2.1x10^3/uL (1.0-4.8) 2.8x10^3/uL (1.0-4.8) Monocytes # (Auto) 1.2x10^3/uL (0.0-1.1) 1.3x10^3/uL (0.0-1.1) Eosinophils # (Auto) 0.0x10^3/uL (0.0-0.7) 0.1x10^3/uL (0.0-0.7) Basophils # (Auto) 0.1x10^3/uL (0.0-0.2) 0.0x10^3/uL (0.0-0.2) Sodium Level 142mmol/L (136-145) 143mmol/L (136-145) Potassium Level 3.6mmol/L (3.5-5.1) 4.1mmol/L (3.5-5.1) Chloride Level 105mmol/L (98-107) 109mmol/L (98-107) Carbon Dioxide Level 30mmol/L (21-32) 26mmol/L (21-32) Anion Gap 7 (6-14) 8 (6-14) Blood Urea Nitrogen 13mg/dL (7-20) 10mg/dL (7-20) Creatinine 0.9mg/dL (0.6-1.0) 0.8mg/dL (0.6-1.0) Estimated GFR (Cockcroft-Gault) 62.6 71.8 Glucose Level 115mg/dL (70-99) 81mg/dL (70-99) Calcium Level 8.4mg/dL (8.5-10.1) 7.8mg/dL (8.5-10.1) Total Bilirubin 0.4mg/dL (0.2-1.0) Direct Bilirubin 0.1mg/dL (0.0-0.2) Aspartate Amino Transf (AST/SGOT) 22U/L (15-37) Alanine Aminotransferase (ALT/SGPT) 12U/L (14-59) Alkaline Phosphatase 90U/L (46-116) Troponin I Quantitative < 0.017ng/mL (0.000-0.055) Total Protein 7.4g/dL (6.4-8.2) Albumin 2.2g/dL (3.4-5.0) Lipase 92U/L (73-393) Urine Collection Type Unknown Urine Color [place] Urine Clarity Clear Urine pH 6.0 Urine Specific [place] 1.025 Urine Protein 30mg/dL (NEG-TRACE) Urine Glucose (UA) Negativemg/dL (NEG) Urine Ketones (Stick) 40mg/dL (NEG) Urine Blood Negative (NEG) Urine Nitrite Negative (NEG) Urine Bilirubin Small (NEG) Urine Urobilinogen Dipstick 0.2mg/dL (0.2 mg/dL) Urine Leukocyte Esterase Trace (NEG) Urine RBC Occ/HPF (0-2) Urine WBC Occ/HPF (0-4) Urine Squamous Epithelial Cells Few/LPF Urine Bacteria 0/HPF (0-FEW) Urine Mucus Mod/LPF Laboratory Tests Test 08/06/16 12:50 08/06/16 12:55 08/07/16 06:15 White Blood Count 14.8x10^3/uL (4.0-11.0) 12.6x10^3/uL (4.0-11.0) Red Blood Count 4.26x10^6/uL (3.50-5.40) 3.71x10^6/uL (3.50-5.40) Hemoglobin 12.5g/dL (12.0-15.5) 10.9g/dL (12.0-15.5) Hematocrit 38.3% (36.0-47.0) 33.0% (36.0-47.0) Mean Corpuscular Volume 90fL (79-100) 89fL (79-100) Mean Corpuscular Hemoglobin 29pg (25-35) 29pg (25-35) Mean Corpuscular Hemoglobin Concent 33g/dL (31-37) 33g/dL (31-37) Red Cell Distribution Width 13.8% (11.5-14.5) 14.0% (11.5-14.5) Platelet Count 373x10^3/uL (140-400) 328x10^3/uL (140-400) Neutrophils (%) (Auto) 77% (31-73) 66% (31-73) Lymphocytes (%) (Auto) 14% (24-48) 22% (24-48) Monocytes (%) (Auto) 8% (0-9) 10% (0-9) Eosinophils (%) (Auto) 0% (0-3) 1% (0-3) Basophils (%) (Auto) 1% (0-3) 0% (0-3) Neutrophils # (Auto) 11.4x10^3uL (1.8-7.7) 8.3x10^3uL (1.8-7.7) Lymphocytes # (Auto) 2.1x10^3/uL (1.0-4.8) 2.8x10^3/uL (1.0-4.8) Monocytes # (Auto) 1.2x10^3/uL (0.0-1.1) 1.3x10^3/uL (0.0-1.1) Eosinophils # (Auto) 0.0x10^3/uL (0.0-0.7) 0.1x10^3/uL (0.0-0.7) Basophils # (Auto) 0.1x10^3/uL (0.0-0.2) 0.0x10^3/uL (0.0-0.2) Sodium Level 142mmol/L (136-145) 143mmol/L (136-145) Potassium Level 3.6mmol/L (3.5-5.1) 4.1mmol/L (3.5-5.1) Chloride Level 105mmol/L (98-107) 109mmol/L (98-107) Carbon Dioxide Level 30mmol/L (21-32) 26mmol/L (21-32) Anion Gap 7 (6-14) 8 (6-14) Blood Urea Nitrogen 13mg/dL (7-20) 10mg/dL (7-20) Creatinine 0.9mg/dL (0.6-1.0) 0.8mg/dL (0.6-1.0) Estimated GFR (Cockcroft-Gault) 62.6 71.8 Glucose Level 115mg/dL (70-99) 81mg/dL (70-99) Calcium Level 8.4mg/dL (8.5-10.1) 7.8mg/dL (8.5-10.1) Total Bilirubin 0.4mg/dL (0.2-1.0) Direct Bilirubin 0.1mg/dL (0.0-0.2) Aspartate Amino Transf (AST/SGOT) 22U/L (15-37) Alanine Aminotransferase (ALT/SGPT) 12U/L (14-59) Alkaline Phosphatase 90U/L (46-116) Troponin I Quantitative < 0.017ng/mL (0.000-0.055) Total Protein 7.4g/dL (6.4-8.2) Albumin 2.2g/dL (3.4-5.0) Lipase 92U/L (73-393) Urine Collection Type Unknown Urine Color [place] Urine Clarity Clear Urine pH 6.0 Urine Specific [place] 1.025 Urine Protein 30mg/dL (NEG-TRACE) Urine Glucose (UA) Negativemg/dL (NEG) Urine Ketones (Stick) 40mg/dL (NEG) Urine Blood Negative (NEG) Urine Nitrite Negative (NEG) Urine Bilirubin Small (NEG) Urine Urobilinogen Dipstick 0.2mg/dL (0.2 mg/dL) Urine Leukocyte Esterase Trace (NEG) Urine RBC Occ/HPF (0-2) Urine WBC Occ/HPF (0-4) Urine Squamous Epithelial Cells Few/LPF Urine Bacteria 0/HPF (0-FEW) Urine Mucus Mod/LPF Medications Current Medications Sodium Chloride (Iv Sodium Chloride 0.9% 1000ml Bag) 1,000 ml @ 1,000 mls/hr 1X ONCE IV Last administered on 08/06/16 13:50; Start 08/06/16 at 13:15; Stop 08/06/16 at 14:14; Status DC Morphine Sulfate 4 mg 1X ONCE IV Last administered on 08/06/16 13:49; Start 08/06/16 at 13:15; Stop 08/06/16 at 13:16; Status DC Ondansetron HCl (Zofran) 4 mg 1X ONCE IV Last administered on 08/06/16 13:49 ; Start 08/06/16 at 13:15; Stop 08/06/16 at 13:16; Status DC Iohexol (Omnipaque 300 Mg/ml) 75 ml 1X ONCE IV Last administered on 08/06/16 13:56; Start 08/06/16 at 13:45; Stop 08/06/16 at 13:46; Status DC Info (Do NOT chart on this entry -- for MONITORING) 1 each PRN DAILY PRN MC SEE COMMENTS; Start 08/06/16 at 13:45; Stop 08/08/16 at 13:44 Ondansetron HCl (Zofran) 4 mg PRN Q8HRS PRN IV NAUSEA/VOMITING Last administered on 08/07/16 08:56; Start 08/06/16 at 15:15; Stop 08/07/16 at 15:14 Fentanyl Citrate 50 mcg 50 mcg PRN Q2HR PRN IV PAIN Last administered on 08:43; Start 08/06/16 at 15:15; Stop 08/07/16 at 15:14 Sodium Chloride (Iv Sodium Chloride 0.9% 1000ml Bag) 1,000 ml @ 100 mls/hr Q10H IV Last administered on 08/07/16 06:17; Start 08/06/16 at 15:09; Stop at 15:08 Acetaminophen (Tylenol) 650 mg PRN Q4HRS PRN PO FEVER; Start 08/06/16 at 15:15 ; Stop 08/07/16 at 15:14 Morphine Sulfate 4 mg 1X ONCE IV ; Start 08/06/16 at 17:30; Stop 08/06/16 at 17 :31; Status DC Morphine Sulfate 4 mg 4 mg PRN Q4HRS PRN IV PAIN Last administered on 06:16; Start 08/06/16 at 17:30 Levofloxacin/ Dextrose 100 ml @ 100 mls/hr Q24H IV Last administered on 20:55; Start 08/06/16 at 18:00 Metronidazole (FLAGYL 500Mmg PREMIX) 100 ml @ 100 mls/hr Q12HR IV Last administered on 08/07/16 08:40; Start 08/06/16 at 21:00 Bismuth Subsalicylate (Pepto-Bismol) 524 mg QID PO Last administered on 08:40; Start 08/06/16 at 21:00 Active Scripts Active Hydrocodone-Apap 5-325 (Hydrocodone Bit/Acetaminophen) 1 Each Tablet 1 Tab PO PRN Q6HRS PRN Reported Lisinopril 20 Mg Tablet 1 Tab PO DAILY Oxybutynin Chloride 5 Mg Tablet 15 Mg PO DAILY [place] 10-325 Tablet (Acetaminophen/Hydrocodone Bitart) 1 Each Tablet 1-2 Tab PO Q4-6HRS Oxycodone Hcl 30 Mg Tablet 1 Tab PO BID Vitals/I & O Vital Sign - Last 24 Hours 08/06/16 08/06/16 08/06/16 08/06/16 12:12 14:09 15:30 16:30 Temp 99.0 99.0 Pulse 89 89 86 88 Resp 24 16 17 17 B/P 165/89 135/89 130/66 146/62 Pulse Ox 96 94 94 92 O2 Delivery Room Air Room Air Room Air Room Air 08/06/16 08/06/16 08/06/16 08/06/16 17:00 17:30 18:42 19:47 Temp 97.6 97.6 Pulse 84 82 81 Resp 19 14 18 B/P 132/61 123/62 99/62 Pulse Ox 92 93 94 O2 Delivery Room Air Room Air Room Air Room Air 08/06/16 08/06/16 08/06/16 3/23/17 20:00 20:17 22:58 02:35 Temp 98.5 99.2 98.5 99.2 Pulse 82 85 Resp 18 18 B/P 113/53 132/68 Pulse Ox 93 91 91 O2 Delivery Room Air Room Air Room Air Room Air 08/07/16 07:00 Temp 99.4 99.4 Pulse 83 Resp 18 B/P 107/63 Pulse Ox 93 O2 Delivery Room Air Intake and Output 08/06/16 08/06/16 08/07/16 15:00 23:00 07:00 Intake Total 0 ml Balance 0 ml Yao HEATON MD Aug 07, 2016 09:05
[2016-08-07 11:00] VITALS: BP 98/62
[2016-08-07 15:14] VITALS: BP 116/68
[2016-08-07 19:36] VITALS: BP 151/77
[2016-08-07] MEDS: ONDANSETRON ODT 4 MG TAB.RAPDIS PO PRN (19:50)
[2016-08-07] MEDS ORDERED: ACETAMINOPHEN 325 MG TABLET. PO PRN ×2 (20:45)
[2016-08-07] MEDS ORDERED: DIPHENHYDRAMINE HCL 25 MG CAPSULE PO PRN (22:00)
[2016-08-07 22:52] VITALS: BP 109/61
[2016-08-08] MEDS: MORPHINE SULFATE 4 MG/ML DISP.SYRIN. IV PRN ×4 (00:45→15:04)
[2016-08-08 02:47] VITALS: BP 116/55
[2016-08-08] MEDS: ONDANSETRON ODT 4 MG TAB.RAPDIS PO PRN (05:34)
[2016-08-08 06:25] LABS: BASO % 0 % (0-3); EOS % 1 % (0-3); HEMATOCRIT 32.2 % (36.0-47.0); HEMOGLOBIN 10.4 g/dL (12.0-15.5); LYMPH # 3.2 x10^3/uL (1.0-4.8); LYMPH % 19 % (24-48); MEAN CORPUSCULAR HEMOGLOBIN 30 pg (25-35); MEAN CORPUSCULAR HGB CONC 32 g/dL (31-37); MEAN CORPUSCULAR VOLUME 92 fL (79-100); MONO % 11 % (0-9); NEUT % 69 % (31-73); PLATELET COUNT 334 x10^3/uL (140-400); RED BLOOD COUNT 3.51 x10^6/uL (3.50-5.40); RED CELL DISTRIBUTION WIDTH 14.1 % (11.5-14.5); WHITE BLOOD COUNT 16.7 x10^3/uL (4.0-11.0)
[2016-08-08 06:57] LABS: ALBUMIN 1.7 g/dL (3.4-5.0); ALBUMIN/GLOBULIN RATIO 0.4 (1.0-1.7); CALCIUM 7.6 mg/dL (8.5-10.1); CREATININE 1.1 mg/dL (0.6-1.0); GFR 49.7; POTASSIUM 4.1 mmol/L (3.5-5.1); TOTAL BILIRUBIN 0.3 mg/dL (0.2-1.0); TOTAL PROTEIN 5.5 g/dL (6.4-8.2)
[2016-08-08 07:00] VITALS: BP 126/66
--- NOTE | 2016-08-08 07:31 | PDOC ---
PROGRESS NOTES Subjective Subjective Febrile, Cdiff positive, Urine culture negative, still with diarrhea but slowing Objective Objective Vital Signs Date Time Temp Pulse Resp B/P Pulse Ox O2 Delivery O2 Flow Rate FiO2 08/08/16 05:10 16 08/08/16 02:47 99.1 85 116/55 90 Room Air 99.1 Intake and Output 08/08/16 07:00 Intake Total 1090 ml Output Total 500 ml Balance 590 ml Intake Oral 1090 ml Output Urine Total 500 ml # Voids 2 Physical Exam Abdomen: Other (soft, more distended, active bowel sounds, no peritoneal signs) Heart: Regular rate Extremities: No clubbing, No cyanosis General: Alert, Cooperative HEENT: Atraumatic Lungs: Clear to auscultation Neck: Supple Neuro: Normal speech Psych/Mental Status: Mental status NL Skin: No breakdown Assessment Assessment Problems Medical Problems: (1) Abdominal pain - Cdiff colitis Status: Acute Plan Plan of Care discontinue levaquin, start po vanco, change IV flagyl to po, start procalamine as albumin is <2, add bacid probiotic tid with meals Comment Review of Relevant I have reviewed the following items marcio (where applicable) has been applied. Labs Laboratory Tests Test 08/06/16 12:50 08/06/16 12:55 08/06/16 16:00 08/07/16 00:27 White Blood Count 14.8x10^3/uL (4.0-11.0) Red Blood Count 4.26x10^6/uL (3.50-5.40) Hemoglobin 12.5g/dL (12.0-15.5) Hematocrit 38.3% (36.0-47.0) Mean Corpuscular Volume 90fL (79-100) Mean Corpuscular Hemoglobin 29pg (25-35) Mean Corpuscular Hemoglobin Concent 33g/dL (31-37) Red Cell Distribution Width 13.8% (11.5-14.5) Platelet Count 373x10^3/uL (140-400) Neutrophils (%) (Auto) 77% (31-73) Lymphocytes (%) (Auto) 14% (24-48) Monocytes (%) (Auto) 8% (0-9) Eosinophils (%) (Auto) 0% (0-3) Basophils (%) (Auto) 1% (0-3) Neutrophils # (Auto) 11.4x10^3uL (1.8-7.7) Lymphocytes # (Auto) 2.1x10^3/uL (1.0-4.8) Monocytes # (Auto) 1.2x10^3/uL (0.0-1.1) Eosinophils # (Auto) 0.0x10^3/uL (0.0-0.7) Basophils # (Auto) 0.1x10^3/uL (0.0-0.2) Sodium Level 142mmol/L (136-145) Potassium Level 3.6mmol/L (3.5-5.1) Chloride Level 105mmol/L (98-107) Carbon Dioxide Level 30mmol/L (21-32) Anion Gap 7 (6-14) Blood Urea Nitrogen 13mg/dL (7-20) Creatinine 0.9mg/dL (0.6-1.0) Estimated GFR (Cockcroft-Gault) 62.6 Glucose Level 115mg/dL (70-99) Calcium Level 8.4mg/dL (8.5-10.1) Total Bilirubin 0.4mg/dL (0.2-1.0) Direct Bilirubin 0.1mg/dL (0.0-0.2) Aspartate Amino Transf (AST/SGOT) 22U/L (15-37) Alanine Aminotransferase (ALT/SGPT) 12U/L (14-59) Alkaline Phosphatase 90U/L (46-116) Troponin I Quantitative < 0.017ng/mL (0.000-0.055) Total Protein 7.4g/dL (6.4-8.2) Albumin 2.2g/dL (3.4-5.0) Lipase 92U/L (73-393) Urine Collection Type Unknown Urine Color [place] Urine Clarity Clear Urine pH 6.0 Urine Specific [place] 1.025 Urine Protein 30mg/dL (NEG-TRACE) Urine Glucose (UA) Negativemg/dL (NEG) Urine Ketones (Stick) 40mg/dL (NEG) Urine Blood Negative (NEG) Urine Nitrite Negative (NEG) Urine Bilirubin Small (NEG) Urine Urobilinogen Dipstick 0.2mg/dL (0.2 mg/dL) Urine Leukocyte Esterase Trace (NEG) Urine RBC Occ/HPF (0-2) Urine WBC Occ/HPF (0-4) Urine Squamous Epithelial Cells Few/LPF Urine Bacteria 0/HPF (0-FEW) Urine Mucus Mod/LPF Clostridium difficile Toxin (PCR) Positive (Negative) Nasal Screen MRSA (PCR) Negative (Negative) Test 08/07/16 06:15 08/08/16 05:45 White Blood Count 12.6x10^3/uL (4.0-11.0) 16.7x10^3/uL (4.0-11.0) Red Blood Count 3.71x10^6/uL (3.50-5.40) 3.51x10^6/uL (3.50-5.40) Hemoglobin 10.9g/dL (12.0-15.5) 10.4g/dL (12.0-15.5) Hematocrit 33.0% (36.0-47.0) 32.2% (36.0-47.0) Mean Corpuscular Volume 89fL (79-100) 92fL (79-100) Mean Corpuscular Hemoglobin 29pg (25-35) 30pg (25-35) Mean Corpuscular Hemoglobin Concent 33g/dL (31-37) 32g/dL (31-37) Red Cell Distribution Width 14.0% (11.5-14.5) 14.1% (11.5-14.5) Platelet Count 328x10^3/uL (140-400) 334x10^3/uL (140-400) Neutrophils (%) (Auto) 66% (31-73) 69% (31-73) Lymphocytes (%) (Auto) 22% (24-48) 19% (24-48) Monocytes (%) (Auto) 10% (0-9) 11% (0-9) Eosinophils (%) (Auto) 1% (0-3) 1% (0-3) Basophils (%) (Auto) 0% (0-3) 0% (0-3) Neutrophils # (Auto) 8.3x10^3uL (1.8-7.7) 11.6x10^3uL (1.8-7.7) Lymphocytes # (Auto) 2.8x10^3/uL (1.0-4.8) 3.2x10^3/uL (1.0-4.8) Monocytes # (Auto) 1.3x10^3/uL (0.0-1.1) 1.8x10^3/uL (0.0-1.1) Eosinophils # (Auto) 0.1x10^3/uL (0.0-0.7) 0.1x10^3/uL (0.0-0.7) Basophils # (Auto) 0.0x10^3/uL (0.0-0.2) 0.0x10^3/uL (0.0-0.2) Sodium Level 143mmol/L (136-145) 142mmol/L (136-145) Potassium Level 4.1mmol/L (3.5-5.1) 4.1mmol/L (3.5-5.1) Chloride Level 109mmol/L (98-107) 108mmol/L (98-107) Carbon Dioxide Level 26mmol/L (21-32) 27mmol/L (21-32) Anion Gap 8 (6-14) 7 (6-14) Blood Urea Nitrogen 10mg/dL (7-20) 12mg/dL (7-20) Creatinine 0.8mg/dL (0.6-1.0) 1.1mg/dL (0.6-1.0) Estimated GFR (Cockcroft-Gault) 71.8 49.7 Glucose Level 81mg/dL (70-99) 101mg/dL (70-99) Calcium Level 7.8mg/dL (8.5-10.1) 7.6mg/dL (8.5-10.1) BUN/Creatinine Ratio 11 (6-20) Total Bilirubin 0.3mg/dL (0.2-1.0) Aspartate Amino Transf (AST/SGOT) 17U/L (15-37) Alanine Aminotransferase (ALT/SGPT) 9U/L (14-59) Alkaline Phosphatase 62U/L (46-116) Total Protein 5.5g/dL (6.4-8.2) Albumin 1.7g/dL (3.4-5.0) Albumin/Globulin Ratio 0.4 (1.0-1.7) Laboratory Tests Test 08/08/16 05:45 White Blood Count 16.7x10^3/uL (4.0-11.0) Red Blood Count 3.51x10^6/uL (3.50-5.40) Hemoglobin 10.4g/dL (12.0-15.5) Hematocrit 32.2% (36.0-47.0) Mean Corpuscular Volume 92fL (79-100) Mean Corpuscular Hemoglobin 30pg (25-35) Mean Corpuscular Hemoglobin Concent 32g/dL (31-37) Red Cell Distribution Width 14.1% (11.5-14.5) Platelet Count 334x10^3/uL (140-400) Neutrophils (%) (Auto) 69% (31-73) Lymphocytes (%) (Auto) 19% (24-48) Monocytes (%) (Auto) 11% (0-9) Eosinophils (%) (Auto) 1% (0-3) Basophils (%) (Auto) 0% (0-3) Neutrophils # (Auto) 11.6x10^3uL (1.8-7.7) Lymphocytes # (Auto) 3.2x10^3/uL (1.0-4.8) Monocytes # (Auto) 1.8x10^3/uL (0.0-1.1) Eosinophils # (Auto) 0.1x10^3/uL (0.0-0.7) Basophils # (Auto) 0.0x10^3/uL (0.0-0.2) Sodium Level 142mmol/L (136-145) Potassium Level 4.1mmol/L (3.5-5.1) Chloride Level 108mmol/L (98-107) Carbon Dioxide Level 27mmol/L (21-32) Anion Gap 7 (6-14) Blood Urea Nitrogen 12mg/dL (7-20) Creatinine 1.1mg/dL (0.6-1.0) Estimated GFR (Cockcroft-Gault) 49.7 BUN/Creatinine Ratio 11 (6-20) Glucose Level 101mg/dL (70-99) Calcium Level 7.6mg/dL (8.5-10.1) Total Bilirubin 0.3mg/dL (0.2-1.0) Aspartate Amino Transf (AST/SGOT) 17U/L (15-37) Alanine Aminotransferase (ALT/SGPT) 9U/L (14-59) Alkaline Phosphatase 62U/L (46-116) Total Protein 5.5g/dL (6.4-8.2) Albumin 1.7g/dL (3.4-5.0) Albumin/Globulin Ratio 0.4 (1.0-1.7) Microbiology 08/06/16 Urine Culture - Preliminary, Resulted 08/06/16 Urine Culture Result 1 (RICARDO) - Preliminary, Resulted Medications Current Medications Sodium Chloride (Iv Sodium Chloride 0.9% 1000ml Bag) 1,000 ml @ 1,000 mls/hr 1X ONCE IV Last administered on 08/06/16 13:50; Start 08/06/16 at 13:15; Stop 08/06/16 at 14:14; Status DC Morphine Sulfate 4 mg 1X ONCE IV Last administered on 08/06/16 13:49; Start 08/06/16 at 13:15; Stop 08/06/16 at 13:16; Status DC Ondansetron HCl (Zofran) 4 mg 1X ONCE IV Last administered on 08/06/16 13:49 ; Start 08/06/16 at 13:15; Stop 08/06/16 at 13:16; Status DC Iohexol (Omnipaque 300 Mg/ml) 75 ml 1X ONCE IV Last administered on 08/06/16 13:56; Start 08/06/16 at 13:45; Stop 08/06/16 at 13:46; Status DC Info (Do NOT chart on this entry -- for MONITORING) 1 each PRN DAILY PRN MC SEE COMMENTS; Start 08/06/16 at 13:45; Stop 08/08/16 at 13:44 Ondansetron HCl (Zofran) 4 mg PRN Q8HRS PRN IV NAUSEA/VOMITING Last administered on 08/07/16 08:56; Start 08/06/16 at 15:15; Stop 08/07/16 at 15:14 ; Status DC Fentanyl Citrate 50 mcg 50 mcg PRN Q2HR PRN IV PAIN Last administered on 14:24; Start 08/06/16 at 15:15; Stop 08/07/16 at 15:14; Status DC Sodium Chloride (Iv Sodium Chloride 0.9% 1000ml Bag) 1,000 ml @ 100 mls/hr Q10H IV Last administered on 08/07/16 06:17; Start 08/06/16 at 15:09; Stop at 15:08; Status DC Acetaminophen (Tylenol) 650 mg PRN Q4HRS PRN PO FEVER; Start 08/06/16 at 15:15 ; Stop 08/07/16 at 15:14; Status DC Morphine Sulfate 4 mg 1X ONCE IV ; Start 08/06/16 at 17:30; Stop 08/06/16 at 17 :31; Status DC Morphine Sulfate 4 mg 4 mg PRN Q4HRS PRN IV PAIN Last administered on 05:10; Start 08/06/16 at 17:30 Levofloxacin/ Dextrose 100 ml @ 100 mls/hr Q24H IV Last administered on 17:19; Start 08/06/16 at 18:00 Metronidazole (FLAGYL 500Mmg PREMIX) 100 ml @ 100 mls/hr Q12HR IV Last administered on 08/07/16 08:40; Start 08/06/16 at 21:00 Bismuth Subsalicylate (Pepto-Bismol) 524 mg QID PO Last administered on 20:47; Start 08/06/16 at 21:00 Al Hydroxide/Mg Hydroxide (Mylanta Plus Xs) 30 ml PRN Q2HR PRN PO HEARTBURN / GAS; Start 08/07/16 at 12:45 Ondansetron HCl (Zofran Odt) 4 mg PRN Q6HRS PRN PO NAUSEA/VOMITING Last administered on 08/08/16 05:34; Start 08/07/16 at 19:45 Acetaminophen (Tylenol) 325 mg PRN Q6HRS PRN PO MILD PAIN / TEMP Last administered on 08/08/16 01:42; Start 08/07/16 at 20:45 Acetaminophen (Tylenol) 650 mg PRN Q6HRS PRN PO MILD PAIN / TEMP Last administered on 08/07/16 20:45; Start 08/07/16 at 20:45 Diphenhydramine HCl (Benadryl) 25 mg PRN QHS PRN PO INSOMNIA Last administered on 08/07/16 21:57; Start 08/07/16 at 22:00 Active Scripts Active Hydrocodone-Apap 5-325 (Hydrocodone Bit/Acetaminophen) 1 Each Tablet 1 Tab PO PRN Q6HRS PRN Reported Lisinopril 20 Mg Tablet 1 Tab PO DAILY Oxybutynin Chloride 5 Mg Tablet 15 Mg PO DAILY [place] 10-325 Tablet (Acetaminophen/Hydrocodone Bitart) 1 Each Tablet 1-2 Tab PO Q4-6HRS Oxycodone Hcl 30 Mg Tablet 1 Tab PO BID Vitals/I & O Vital Sign - Last 24 Hours 08/07/16 08/07/16 08/07/16 08/07/16 10:15 11:00 15:14 16:37 Temp 99.3 98.5 99.3 98.5 Pulse 83 83 Resp 18 18 B/P 98/62 116/68 Pulse Ox 90 93 93 O2 Delivery Room Air Room Air Room Air Room Air 08/07/16 08/07/16 08/07/16 08/07/16 17:10 19:36 20:00 20:45 Temp 101.5 101.5 Pulse 93 Resp 18 B/P 151/77 Pulse Ox 93 92 92 O2 Delivery Room Air Room Air Room Air Room Air 08/07/16 08/08/16 08/08/16 08/08/16 22:52 00:45 02:47 05:10 Temp 100.2 99.1 100.2 99.1 Pulse 103 85 Resp 18 18 16 B/P 109/61 116/55 Pulse Ox 90 90 90 O2 Delivery Room Air Room Air Room Air Intake and Output 08/07/16 08/07/16 08/08/16 15:00 23:00 07:00 Intake Total 240 ml 300 ml 550 ml Output Total 500 ml Balance 240 ml -200 ml 550 ml Yao HEATON MD Aug 08, 2016 07:31
[2016-08-08] MEDS: AA 2.75%/CALCIUM/LYTES/D5W 2,000 ML IV SCH (08:47)
[2016-08-08] MEDS: METRONIDAZOLE 500mg PREMIX 100 ML IV SCH (08:47)
[2016-08-08] MEDS: BISMUTH SUBSALICYLATE 262 MG/15 ML ORAL.SUSP 236ML BOTTLE. PO SCH ×4 (08:48→20:57)
[2016-08-08] MEDS: VANCOMYCIN 250 MG/5 ML ORAL SOLUTION. PO SCH ×4 (08:52→20:58)
[2016-08-08 11:00] VITALS: BP 104/59
--- NOTE | 2016-08-08 11:17 | PDOC ---
Subjective: Subjective: Still has pain. No stools. Objective: Objective: Per RN - some nausea last night, none today. Ate cardiac diet this morning. Ongoing pain. Vital Signs: Vital Signs Date Time Temp Pulse Resp B/P Pulse Ox O2 Delivery O2 Flow Rate FiO2 08/08/16 11:00 99.2 81 18 104/59 90 Room Air 99.2 Labs: Laboratory Tests Test 08/08/16 05:45 White Blood Count 16.7x10^3/uL Red Blood Count 3.51x10^6/uL Hemoglobin 10.4g/dL Hematocrit 32.2% Mean Corpuscular Volume 92fL Mean Corpuscular Hemoglobin 30pg Mean Corpuscular Hemoglobin Concent 32g/dL Red Cell Distribution Width 14.1% Platelet Count 334x10^3/uL Neutrophils (%) (Auto) 69% Lymphocytes (%) (Auto) 19% Monocytes (%) (Auto) 11% Eosinophils (%) (Auto) 1% Basophils (%) (Auto) 0% Neutrophils # (Auto) 11.6x10^3uL Lymphocytes # (Auto) 3.2x10^3/uL Monocytes # (Auto) 1.8x10^3/uL Eosinophils # (Auto) 0.1x10^3/uL Basophils # (Auto) 0.0x10^3/uL Sodium Level 142mmol/L Potassium Level 4.1mmol/L Chloride Level 108mmol/L Carbon Dioxide Level 27mmol/L Anion Gap 7 Blood Urea Nitrogen 12mg/dL Creatinine 1.1mg/dL Estimated GFR (Cockcroft-Gault) 49.7 BUN/Creatinine Ratio 11 Glucose Level 101mg/dL Calcium Level 7.6mg/dL Total Bilirubin 0.3mg/dL Aspartate Amino Transf (AST/SGOT) 17U/L Alanine Aminotransferase (ALT/SGPT) 9U/L Alkaline Phosphatase 62U/L Total Protein 5.5g/dL Albumin 1.7g/dL Albumin/Globulin Ratio 0.4 PE: GEN: NAD LUNGS: CTAB HEART: RRR ABD: BS+ BLQ tenderness, obese NEURO/PSYCH: A & O 3 A/P: Abd pain, n/v -diffuse but worse BLQ/suprapubic -last colonoscopy 2010 to hepatic flexure, followed by barium enema ---> diverticulosis, internal hemorrhoids, redundancy; colonoscopy to cecum in 2008 -h/o reflux; last EGD 2010 w/ normal esophagus, gastritis, duodenal diverticulum ; h/o H. pylori treated in [address] A/P -wall thickening in the sigmoid colon w/ possible low grade inflammation C Diff -now on PO vanc, also IV Flagyl Leukocytosis -- Change to clears for now. Continue atbx. GIFTY PARKINSON Aug 08, 2016 11:17
[2016-08-08 15:00] VITALS: BP 115/55
[2016-08-08] MEDS: LACTOBACILLUS ACIDOPH & BULGAR 1 TABLET. PO SCH (18:27)
[2016-08-08 19:27] VITALS: BP 121/71
[2016-08-08] MEDS: HYDROCODONE/APAP 5/325MG TABLET. PO PRN (20:57)
[2016-08-08] MEDS: METRONIDAZOLE 250 MG TABLET PO SCH (21:06)
[2016-08-08 23:05] VITALS: BP 146/84
[2016-08-09 02:55] VITALS: BP 126/62
[2016-08-09 05:11] LABS: BASO % 0 % (0-3); EOS % 2 % (0-3); HEMATOCRIT 32.1 % (36.0-47.0); HEMOGLOBIN 10.2 g/dL (12.0-15.5); LYMPH # 2.8 x10^3/uL (1.0-4.8); LYMPH % 23 % (24-48); MEAN CORPUSCULAR HEMOGLOBIN 29 pg (25-35); MEAN CORPUSCULAR HGB CONC 32 g/dL (31-37); MEAN CORPUSCULAR VOLUME 92 fL (79-100); MONO % 10 % (0-9); NEUT % 65 % (31-73); PLATELET COUNT 347 x10^3/uL (140-400); WHITE BLOOD COUNT 12.3 x10^3/uL (4.0-11.0)
[2016-08-09 05:34] LABS: ALBUMIN 1.6 g/dL (3.4-5.0); ALBUMIN/GLOBULIN RATIO 0.4 (1.0-1.7); CALCIUM 8.2 mg/dL (8.5-10.1); GFR 55.5; POTASSIUM 4.5 mmol/L (3.5-5.1); TOTAL BILIRUBIN 0.3 mg/dL (0.2-1.0); TOTAL PROTEIN 6.1 g/dL (6.4-8.2)
[2016-08-09 07:00] VITALS: BP 133/60
[2016-08-09] MEDS: METRONIDAZOLE 250 MG TABLET PO SCH ×3 (07:32→21:24)
--- NOTE | 2016-08-09 09:09 | RAD ---
Indication abdominal distention. Supine portable film of the abdomen were obtained. Note is made of a CT examination of the abdomen and pelvis 3 days earlier. The lung bases are clear. Abdominal mesh material is noted as well as clips in the gallbladder fossa. The abdominal gas pattern has a nonobstructive appearance. Scoliosis and degenerative changes are noted in the lumbar spine. IMPRESSION: No acute finding seen in the abdomen on plain films
[2016-08-09] MEDS: HYDROCODONE/APAP 5/325MG TABLET. PO PRN ×3 (09:17→21:24)
[2016-08-09] MEDS: BISMUTH SUBSALICYLATE 262 MG/15 ML ORAL.SUSP 236ML BOTTLE. PO SCH ×4 (09:18→21:25)
[2016-08-09] MEDS: LACTOBACILLUS ACIDOPH & BULGAR 1 TABLET. PO SCH ×3 (09:18→16:21)
[2016-08-09] MEDS: AA 2.75%/CALCIUM/LYTES/D5W 2,000 ML IV SCH (09:42)
[2016-08-09] MEDS: VANCOMYCIN 250 MG/5 ML ORAL SOLUTION. PO SCH ×4 (09:42→21:24)
[2016-08-09] MEDS: MORPHINE SULFATE 4 MG/ML DISP.SYRIN. IV PRN ×4 (09:43→20:49)
[2016-08-09 11:09] VITALS: BP 126/60
--- NOTE | 2016-08-09 11:31 | PDOC ---
Subjective: Subjective: c/o abd pain. She cannot tell me if she has had any improvement in her diarrhea with antibiotics Objective: Vital Signs: Vital Signs Date Time Temp Pulse Resp B/P Pulse Ox O2 Delivery O2 Flow Rate FiO2 08/09/16 11:09 99.0 82 17 126/60 91 Room Air 99.0 Labs: Laboratory Tests Test 08/09/16 04:35 White Blood Count 12.3x10^3/uL (4.0-11.0) Red Blood Count 3.50x10^6/uL (3.50-5.40) Hemoglobin 10.2g/dL (12.0-15.5) Hematocrit 32.1% (36.0-47.0) Mean Corpuscular Volume 92fL (79-100) Mean Corpuscular Hemoglobin 29pg (25-35) Mean Corpuscular Hemoglobin Concent 32g/dL (31-37) Red Cell Distribution Width 14.0% (11.5-14.5) Platelet Count 347x10^3/uL (140-400) Neutrophils (%) (Auto) 65% (31-73) Lymphocytes (%) (Auto) 23% (24-48) Monocytes (%) (Auto) 10% (0-9) Eosinophils (%) (Auto) 2% (0-3) Basophils (%) (Auto) 0% (0-3) Neutrophils # (Auto) 8.0x10^3uL (1.8-7.7) Lymphocytes # (Auto) 2.8x10^3/uL (1.0-4.8) Monocytes # (Auto) 1.2x10^3/uL (0.0-1.1) Eosinophils # (Auto) 0.3x10^3/uL (0.0-0.7) Basophils # (Auto) 0.0x10^3/uL (0.0-0.2) Sodium Level 140mmol/L (136-145) Potassium Level 4.5mmol/L (3.5-5.1) Chloride Level 106mmol/L (98-107) Carbon Dioxide Level 28mmol/L (21-32) Anion Gap 6 (6-14) Blood Urea Nitrogen 11mg/dL (7-20) Creatinine 1.0mg/dL (0.6-1.0) Estimated GFR (Cockcroft-Gault) 55.5 BUN/Creatinine Ratio 11 (6-20) Glucose Level 119mg/dL (70-99) Calcium Level 8.2mg/dL (8.5-10.1) Total Bilirubin 0.3mg/dL (0.2-1.0) Aspartate Amino Transf (AST/SGOT) 13U/L (15-37) Alanine Aminotransferase (ALT/SGPT) 8U/L (14-59) Alkaline Phosphatase 56U/L (46-116) Total Protein 6.1g/dL (6.4-8.2) Albumin 1.6g/dL (3.4-5.0) Albumin/Globulin Ratio 0.4 (1.0-1.7) Physical Exam: Physical Exam: GEN: NAD HEENT: OP clear CV: S1S2 without murmurs, rubs, or gallops RESP: CTAB without wheezing, rhonchi, or crackles ABD: NABS. diffuse TTP EXT: No edema Assessment & Plan: Assessment : 1) C diff Plan: 1) Cont PO vanco/flagyl 2) Add S boulardi probiotic Problems: MICHELLE FINLEY MD Aug 09, 2016 11:31
--- NOTE | 2016-08-09 13:04 | PDOC ---
PROGRESS NOTES Subjective Subjective Patient reports lower abdominal pain persists. Denies nausea. Objective Objective Vital Signs Date Time Temp Pulse Resp B/P Pulse Ox O2 Delivery O2 Flow Rate FiO2 08/09/16 11:09 99.0 82 17 126/60 91 Room Air 99.0 Intake and Output 08/09/16 07:00 Intake Total 1339 ml Output Total 400 ml Balance 939 ml Intake Oral 500 ml IV Total 839 ml Output Urine Total 400 ml # Voids 1 # Bowel Movements 1 Physical Exam Abdomen: Normal bowel sounds, Soft, Other (moderate TTP over lower abdomen) Heart: Regular rate Extremities: No edema General: Alert, Oriented X3, No acute distress Lungs: Clear to auscultation Assessment Assessment Problems Medical Problems: (1) Abdominal pain Status: Acute Plan Plan of Care 1. C difficile colitis - continue present tx. WBC's are improving, still having intermittent low grade temp. Possible colon mass on CT, may need further evaluation after symptoms have improved. GI following. Will try advancing diet. Continue Procalamine for now as patient is not taking much po. KUB showed nonobstructive gas pattern. PO and IV pain meds are available to her. Comment Review of Relevant I have reviewed the following items marcio (where applicable) has been applied. Labs Laboratory Tests Test 08/08/16 05:45 08/09/16 04:35 White Blood Count 16.7x10^3/uL (4.0-11.0) 12.3x10^3/uL (4.0-11.0) Red Blood Count 3.51x10^6/uL (3.50-5.40) 3.50x10^6/uL (3.50-5.40) Hemoglobin 10.4g/dL (12.0-15.5) 10.2g/dL (12.0-15.5) Hematocrit 32.2% (36.0-47.0) 32.1% (36.0-47.0) Mean Corpuscular Volume 92fL (79-100) 92fL (79-100) Mean Corpuscular Hemoglobin 30pg (25-35) 29pg (25-35) Mean Corpuscular Hemoglobin Concent 32g/dL (31-37) 32g/dL (31-37) Red Cell Distribution Width 14.1% (11.5-14.5) 14.0% (11.5-14.5) Platelet Count 334x10^3/uL (140-400) 347x10^3/uL (140-400) Neutrophils (%) (Auto) 69% (31-73) 65% (31-73) Lymphocytes (%) (Auto) 19% (24-48) 23% (24-48) Monocytes (%) (Auto) 11% (0-9) 10% (0-9) Eosinophils (%) (Auto) 1% (0-3) 2% (0-3) Basophils (%) (Auto) 0% (0-3) 0% (0-3) Neutrophils # (Auto) 11.6x10^3uL (1.8-7.7) 8.0x10^3uL (1.8-7.7) Lymphocytes # (Auto) 3.2x10^3/uL (1.0-4.8) 2.8x10^3/uL (1.0-4.8) Monocytes # (Auto) 1.8x10^3/uL (0.0-1.1) 1.2x10^3/uL (0.0-1.1) Eosinophils # (Auto) 0.1x10^3/uL (0.0-0.7) 0.3x10^3/uL (0.0-0.7) Basophils # (Auto) 0.0x10^3/uL (0.0-0.2) 0.0x10^3/uL (0.0-0.2) Sodium Level 142mmol/L (136-145) 140mmol/L (136-145) Potassium Level 4.1mmol/L (3.5-5.1) 4.5mmol/L (3.5-5.1) Chloride Level 108mmol/L (98-107) 106mmol/L (98-107) Carbon Dioxide Level 27mmol/L (21-32) 28mmol/L (21-32) Anion Gap 7 (6-14) 6 (6-14) Blood Urea Nitrogen 12mg/dL (7-20) 11mg/dL (7-20) Creatinine 1.1mg/dL (0.6-1.0) 1.0mg/dL (0.6-1.0) Estimated GFR (Cockcroft-Gault) 49.7 55.5 BUN/Creatinine Ratio 11 (6-20) 11 (6-20) Glucose Level 101mg/dL (70-99) 119mg/dL (70-99) Calcium Level 7.6mg/dL (8.5-10.1) 8.2mg/dL (8.5-10.1) Total Bilirubin 0.3mg/dL (0.2-1.0) 0.3mg/dL (0.2-1.0) Aspartate Amino Transf (AST/SGOT) 17U/L (15-37) 13U/L (15-37) Alanine Aminotransferase (ALT/SGPT) 9U/L (14-59) 8U/L (14-59) Alkaline Phosphatase 62U/L (46-116) 56U/L (46-116) Total Protein 5.5g/dL (6.4-8.2) 6.1g/dL (6.4-8.2) Albumin 1.7g/dL (3.4-5.0) 1.6g/dL (3.4-5.0) Albumin/Globulin Ratio 0.4 (1.0-1.7) 0.4 (1.0-1.7) Laboratory Tests Test 08/09/16 04:35 White Blood Count 12.3x10^3/uL (4.0-11.0) Red Blood Count 3.50x10^6/uL (3.50-5.40) Hemoglobin 10.2g/dL (12.0-15.5) Hematocrit 32.1% (36.0-47.0) Mean Corpuscular Volume 92fL (79-100) Mean Corpuscular Hemoglobin 29pg (25-35) Mean Corpuscular Hemoglobin Concent 32g/dL (31-37) Red Cell Distribution Width 14.0% (11.5-14.5) Platelet Count 347x10^3/uL (140-400) Neutrophils (%) (Auto) 65% (31-73) Lymphocytes (%) (Auto) 23% (24-48) Monocytes (%) (Auto) 10% (0-9) Eosinophils (%) (Auto) 2% (0-3) Basophils (%) (Auto) 0% (0-3) Neutrophils # (Auto) 8.0x10^3uL (1.8-7.7) Lymphocytes # (Auto) 2.8x10^3/uL (1.0-4.8) Monocytes # (Auto) 1.2x10^3/uL (0.0-1.1) Eosinophils # (Auto) 0.3x10^3/uL (0.0-0.7) Basophils # (Auto) 0.0x10^3/uL (0.0-0.2) Sodium Level 140mmol/L (136-145) Potassium Level 4.5mmol/L (3.5-5.1) Chloride Level 106mmol/L (98-107) Carbon Dioxide Level 28mmol/L (21-32) Anion Gap 6 (6-14) Blood Urea Nitrogen 11mg/dL (7-20) Creatinine 1.0mg/dL (0.6-1.0) Estimated GFR (Cockcroft-Gault) 55.5 BUN/Creatinine Ratio 11 (6-20) Glucose Level 119mg/dL (70-99) Calcium Level 8.2mg/dL (8.5-10.1) Total Bilirubin 0.3mg/dL (0.2-1.0) Aspartate Amino Transf (AST/SGOT) 13U/L (15-37) Alanine Aminotransferase (ALT/SGPT) 8U/L (14-59) Alkaline Phosphatase 56U/L (46-116) Total Protein 6.1g/dL (6.4-8.2) Albumin 1.6g/dL (3.4-5.0) Albumin/Globulin Ratio 0.4 (1.0-1.7) Microbiology 08/06/16 Urine Culture - Final, Complete 08/06/16 Urine Culture Result 1 (RICARDO) - Final, Complete Medications Current Medications Sodium Chloride (Iv Sodium Chloride 0.9% 1000ml Bag) 1,000 ml @ 1,000 mls/hr 1X ONCE IV Last administered on 08/06/16 13:50; Start 08/06/16 at 13:15; Stop 08/06/16 at 14:14; Status DC Morphine Sulfate 4 mg 1X ONCE IV Last administered on 08/06/16 13:49; Start 08/06/16 at 13:15; Stop 08/06/16 at 13:16; Status DC Ondansetron HCl (Zofran) 4 mg 1X ONCE IV Last administered on 08/06/16 13:49 ; Start 08/06/16 at 13:15; Stop 08/06/16 at 13:16; Status DC Iohexol (Omnipaque 300 Mg/ml) 75 ml 1X ONCE IV Last administered on 08/06/16 13:56; Start 08/06/16 at 13:45; Stop 08/06/16 at 13:46; Status DC Info (Do NOT chart on this entry -- for MONITORING) 1 each PRN DAILY PRN MC SEE COMMENTS; Start 08/06/16 at 13:45; Stop 08/08/16 at 13:44; Status DC Ondansetron HCl (Zofran) 4 mg PRN Q8HRS PRN IV NAUSEA/VOMITING Last administered on 08/07/16 08:56; Start 08/06/16 at 15:15; Stop 08/07/16 at 15:14 ; Status DC Fentanyl Citrate 50 mcg 50 mcg PRN Q2HR PRN IV PAIN Last administered on 14:24; Start 08/06/16 at 15:15; Stop 08/07/16 at 15:14; Status DC Sodium Chloride (Iv Sodium Chloride 0.9% 1000ml Bag) 1,000 ml @ 100 mls/hr Q10H IV Last administered on 08/07/16 06:17; Start 08/06/16 at 15:09; Stop at 15:08; Status DC Acetaminophen (Tylenol) 650 mg PRN Q4HRS PRN PO FEVER; Start 08/06/16 at 15:15 ; Stop 08/07/16 at 15:14; Status DC Morphine Sulfate 4 mg 1X ONCE IV ; Start 08/06/16 at 17:30; Stop 08/06/16 at 17 :31; Status DC Morphine Sulfate 4 mg 4 mg PRN Q4HRS PRN IV PAIN Last administered on 09:43; Start 08/06/16 at 17:30 Levofloxacin/ Dextrose 100 ml @ 100 mls/hr Q24H IV Last administered on 17:19; Start 08/06/16 at 18:00; Stop 08/08/16 at 07:32; Status DC Metronidazole (FLAGYL 500Mmg PREMIX) 100 ml @ 100 mls/hr Q12HR IV Last administered on 08/08/16 08:47; Start 08/06/16 at 21:00; Stop 08/08/16 at 17:48 ; Status DC Bismuth Subsalicylate (Pepto-Bismol) 524 mg QID PO Last administered on 12:06; Start 08/06/16 at 21:00 Al Hydroxide/Mg Hydroxide (Mylanta Plus Xs) 30 ml PRN Q2HR PRN PO HEARTBURN / GAS; Start 08/07/16 at 12:45 Ondansetron HCl (Zofran Odt) 4 mg PRN Q6HRS PRN PO NAUSEA/VOMITING Last administered on 08/08/16 05:34; Start 08/07/16 at 19:45 Acetaminophen (Tylenol) 325 mg PRN Q6HRS PRN PO MILD PAIN / TEMP Last administered on 08/08/16 01:42; Start 08/07/16 at 20:45 Acetaminophen (Tylenol) 650 mg PRN Q6HRS PRN PO MILD PAIN / TEMP Last administered on 08/07/16 20:45; Start 08/07/16 at 20:45 Diphenhydramine HCl (Benadryl) 25 mg PRN QHS PRN PO INSOMNIA Last administered on 08/07/16 21:57; Start 08/07/16 at 22:00 Vancomycin HCl 250 mg 250 mg [id number] PO Last administered on 08/09/16 12:05; Start 08/08/16 at 09:00 Amino Acids/ Electrolytes (Clinimix E 2.75%-5% Solution) 2,000 ml @ 80 mls/hr Q24H IV Last administered on 08/09/16 09:42; Start 08/08/16 at 08:00 Metronidazole (Flagyl) 250 mg Q8HRS PO Last administered on 08/09/16 07:32; Start 08/08/16 at 22:00 Lactobacillus Acidophilus (Bacid, Maria Esther-Bid) 1 tab TIDWMEALS PO Last administered on 08/09/16 12:05; Start 08/08/16 at 18:00 Acetaminophen/ Hydrocodone Bitart (Lortab 5/325) 1 tab PRN Q4HRS PRN PO MODERATE - SEVERE PAIN Last administered on 08/09/16t 09:17; Start 08/08/16 at 17:45 Saccharomyces Boulardii (Florastor) 250 mg DAILY PO ; Start 08/10/16 at 09:00 Active Scripts Active Hydrocodone-Apap 5-325 (Hydrocodone Bit/Acetaminophen) 1 Each Tablet 1 Tab PO PRN Q6HRS PRN Reported Lisinopril 20 Mg Tablet 1 Tab PO DAILY Oxybutynin Chloride 5 Mg Tablet 15 Mg PO DAILY [place] 10-325 Tablet (Acetaminophen/Hydrocodone Bitart) 1 Each Tablet 1-2 Tab PO Q4-6HRS Oxycodone Hcl 30 Mg Tablet 1 Tab PO BID Vitals/I & O Vital Sign - Last 24 Hours 08/08/16 08/08/16 08/08/16 08/08/16 15:00 15:04 19:27 20:00 Temp 99.6 99.9 99.6 99.9 Pulse 85 81 Resp 18 18 B/P 115/55 121/71 Pulse Ox 91 90 91 O2 Delivery Room Air Room Air Room Air Room Air 08/08/16 08/08/16 08/09/16 08/09/16 20:57 23:05 02:55 07:00 Temp 98.9 98.4 98.6 98.9 98.4 98.6 Pulse 81 76 99 Resp 18 17 B/P 146/84 126/62 133/60 Pulse Ox 90 96 93 O2 Delivery Room Air Room Air Room Air Room Air 08/09/16 08/09/16 08/09/16 08/09/16 08:00 09:17 09:43 10:13 Resp 16 16 16 Pulse Ox 93 93 93 O2 Delivery Room Air Room Air Room Air Room Air 08/09/16 08/09/16 10:13 11:09 Temp 99.0 99.0 Pulse 82 Resp 17 B/P 126/60 Pulse Ox 93 91 O2 Delivery Room Air Room Air Intake and Output 08/08/16 08/08/16 08/09/16 15:00 23:00 07:00 Intake Total 1339 ml Output Total 400 ml Balance 939 ml MICHAEL LOVE MD Aug 09, 2016 13:04
[2016-08-09] MEDS: MAG HYDROX/ALUMINUM HYD/SIMETH 30 ML ORAL.SUSP PO PRN (13:37)
[2016-08-09] MEDS: ONDANSETRON ODT 4 MG TAB.RAPDIS PO PRN ×2 (14:54→20:45)
[2016-08-09 15:04] VITALS: BP 141/76
[2016-08-09 19:59] VITALS: BP_SYST 76
[2016-08-09 23:13] VITALS: BP 113/65
[2016-08-10] MEDS: MORPHINE SULFATE 4 MG/ML DISP.SYRIN. IV PRN ×6 (01:39→20:11)
[2016-08-10] MEDS: HYDROCODONE/APAP 5/325MG TABLET. PO PRN ×3 (03:14→14:42)
[2016-08-10] MEDS: ONDANSETRON ODT 4 MG TAB.RAPDIS PO PRN ×2 (03:18→18:41)
[2016-08-10 03:56] VITALS: BP 110/60
[2016-08-10] MEDS: METRONIDAZOLE 250 MG TABLET PO SCH ×3 (05:35→21:34)
[2016-08-10 07:00] VITALS: BP 94/58
[2016-08-10] MEDS: SACCHAROMYCES BOULARDII 250 MG CAPSULE. PO SCH (07:54)
[2016-08-10] MEDS: VANCOMYCIN 250 MG/5 ML ORAL SOLUTION. PO SCH ×4 (07:54→21:31)
[2016-08-10] MEDS: LACTOBACILLUS ACIDOPH & BULGAR 1 TABLET. PO SCH ×3 (07:54→17:36)
[2016-08-10] MEDS: BISMUTH SUBSALICYLATE 262 MG/15 ML ORAL.SUSP 236ML BOTTLE. PO SCH ×4 (07:58→20:12)
[2016-08-10] MEDS: AA 2.75%/CALCIUM/LYTES/D5W 2,000 ML IV SCH (08:00)
[2016-08-10] MEDS: AA 4.25%/CALCIUM/LYTES/D5W 1,000 ML IV SCH ×2 (09:47→21:31)
[2016-08-10 11:00] VITALS: BP 109/62
--- NOTE | 2016-08-10 11:32 | PDOC ---
PROGRESS NOTES Subjective Subjective Patient reports pain and diarrhea are a little better. Objective Objective Vital Signs Date Time Temp Pulse Resp B/P Pulse Ox O2 Delivery O2 Flow Rate FiO2 08/10/16 11:21 16 90 Room Air 08/10/16 07:00 98.6 75 94/58 98.6 Intake and Output 08/10/16 07:00 Intake Total 1310 ml Output Total 200 ml Balance 1110 ml Intake Oral 350 ml Blood Product IV Normal Saline Flush 960 ml Output Urine Total 200 ml # Voids 1 # Bowel Movements 2 Physical Exam Abdomen: Normal bowel sounds, Soft, Other (moderate TTP lower abdomen) Heart: Regular rate Extremities: No edema General: Alert, Oriented X3, No acute distress Lungs: Clear to auscultation Assessment Assessment Problems Medical Problems: (1) Abdominal pain Status: Acute Plan Plan of Care 1. C difficile colitis - slowly improving, fewer stools. Temp to 101 yesterday. Continue po and IV pain meds. Continue po Flagyl and Vancomycin. GI following, may need further evaluation of possible colon mass seen on CT. Continue Procalamine and diet as tolerated, still not eating much. Comment Review of Relevant I have reviewed the following items marcio (where applicable) has been applied. Labs Laboratory Tests Test 08/09/16 04:35 White Blood Count 12.3x10^3/uL (4.0-11.0) Red Blood Count 3.50x10^6/uL (3.50-5.40) Hemoglobin 10.2g/dL (12.0-15.5) Hematocrit 32.1% (36.0-47.0) Mean Corpuscular Volume 92fL (79-100) Mean Corpuscular Hemoglobin 29pg (25-35) Mean Corpuscular Hemoglobin Concent 32g/dL (31-37) Red Cell Distribution Width 14.0% (11.5-14.5) Platelet Count 347x10^3/uL (140-400) Neutrophils (%) (Auto) 65% (31-73) Lymphocytes (%) (Auto) 23% (24-48) Monocytes (%) (Auto) 10% (0-9) Eosinophils (%) (Auto) 2% (0-3) Basophils (%) (Auto) 0% (0-3) Neutrophils # (Auto) 8.0x10^3uL (1.8-7.7) Lymphocytes # (Auto) 2.8x10^3/uL (1.0-4.8) Monocytes # (Auto) 1.2x10^3/uL (0.0-1.1) Eosinophils # (Auto) 0.3x10^3/uL (0.0-0.7) Basophils # (Auto) 0.0x10^3/uL (0.0-0.2) Sodium Level 140mmol/L (136-145) Potassium Level 4.5mmol/L (3.5-5.1) Chloride Level 106mmol/L (98-107) Carbon Dioxide Level 28mmol/L (21-32) Anion Gap 6 (6-14) Blood Urea Nitrogen 11mg/dL (7-20) Creatinine 1.0mg/dL (0.6-1.0) Estimated GFR (Cockcroft-Gault) 55.5 BUN/Creatinine Ratio 11 (6-20) Glucose Level 119mg/dL (70-99) Calcium Level 8.2mg/dL (8.5-10.1) Total Bilirubin 0.3mg/dL (0.2-1.0) Aspartate Amino Transf (AST/SGOT) 13U/L (15-37) Alanine Aminotransferase (ALT/SGPT) 8U/L (14-59) Alkaline Phosphatase 56U/L (46-116) Total Protein 6.1g/dL (6.4-8.2) Albumin 1.6g/dL (3.4-5.0) Albumin/Globulin Ratio 0.4 (1.0-1.7) Microbiology 08/06/16 Urine Culture - Final, Complete 08/06/16 Urine Culture Result 1 (RICARDO) - Final, Complete Medications Current Medications Sodium Chloride (Iv Sodium Chloride 0.9% 1000ml Bag) 1,000 ml @ 1,000 mls/hr 1X ONCE IV Last administered on 08/06/16t 13:50; Start 08/06/16 at 13:15; Stop 08/06/16 at 14:14; Status DC Morphine Sulfate 4 mg 1X ONCE IV Last administered on 08/06/16 13:49; Start 08/06/16 at 13:15; Stop 08/06/16 at 13:16; Status DC Ondansetron HCl (Zofran) 4 mg 1X ONCE IV Last administered on 08/06/16 13:49 ; Start 08/06/16 at 13:15; Stop 08/06/16 at 13:16; Status DC Iohexol (Omnipaque 300 Mg/ml) 75 ml 1X ONCE IV Last administered on 08/06/16 13:56; Start 08/06/16 at 13:45; Stop 08/06/16 at 13:46; Status DC Info (Do NOT chart on this entry -- for MONITORING) 1 each PRN DAILY PRN MC SEE COMMENTS; Start 08/06/16 at 13:45; Stop 08/08/16 at 13:44; Status DC Ondansetron HCl (Zofran) 4 mg PRN Q8HRS PRN IV NAUSEA/VOMITING Last administered on 08/07/16 08:56; Start 08/06/16 at 15:15; Stop 08/07/16 at 15:14 ; Status DC Fentanyl Citrate 50 mcg 50 mcg PRN Q2HR PRN IV PAIN Last administered on 14:24; Start 08/06/16 at 15:15; Stop 08/07/16 at 15:14; Status DC Sodium Chloride (Iv Sodium Chloride 0.9% 1000ml Bag) 1,000 ml @ 100 mls/hr Q10H IV Last administered on 08/07/16 06:17; Start 08/06/16 at 15:09; Stop at 15:08; Status DC Acetaminophen (Tylenol) 650 mg PRN Q4HRS PRN PO FEVER; Start 08/06/16 at 15:15 ; Stop 08/07/16 at 15:14; Status DC Morphine Sulfate 4 mg 1X ONCE IV ; Start 08/06/16 at 17:30; Stop 08/06/16 at 17 :31; Status DC Morphine Sulfate 4 mg 4 mg PRN Q4HRS PRN IV PAIN Last administered on 09:43; Start 08/06/16 at 17:30; Stop 08/09/16 at 13:01; Status DC Levofloxacin/ Dextrose 100 ml @ 100 mls/hr Q24H IV Last administered on 17:19; Start 08/06/16 at 18:00; Stop 08/08/16 at 07:32; Status DC Metronidazole (FLAGYL 500Mmg PREMIX) 100 ml @ 100 mls/hr Q12HR IV Last administered on 08/08/16 08:47; Start 08/06/16 at 21:00; Stop 08/08/16 at 17:48 ; Status DC Bismuth Subsalicylate (Pepto-Bismol) 524 mg QID PO Last administered on 07:58; Start 08/06/16 at 21:00 Al Hydroxide/Mg Hydroxide (Mylanta Plus Xs) 30 ml PRN Q2HR PRN PO HEARTBURN / GAS Last administered on 08/09/16 13:37; Start 08/07/16 at 12:45 Ondansetron HCl (Zofran Odt) 4 mg PRN Q6HRS PRN PO NAUSEA/VOMITING Last administered on 08/10/16 03:18; Start 08/07/16 at 19:45 Acetaminophen (Tylenol) 325 mg PRN Q6HRS PRN PO MILD PAIN / TEMP Last administered on 08/08/16 01:42; Start 08/07/16 at 20:45 Acetaminophen (Tylenol) 650 mg PRN Q6HRS PRN PO MILD PAIN / TEMP Last administered on 08/07/16 20:45; Start 08/07/16 at 20:45 Diphenhydramine HCl (Benadryl) 25 mg PRN QHS PRN PO INSOMNIA Last administered on 08/07/16 21:57; Start 08/07/16 at 22:00 Vancomycin HCl 250 mg 250 mg [id number] PO Last administered on 08/10/16 07:54; Start 08/08/16 at 09:00 Amino Acids/ Electrolytes (Clinimix E 2.75%-5% Solution) 2,000 ml @ 80 mls/hr Q24H IV Last administered on 08/09/16 09:42; Start 08/08/16 at 08:00; Stop at 08:53; Status DC Metronidazole (Flagyl) 250 mg Q8HRS PO Last administered on 08/10/16 05:35; Start 08/08/16 at 22:00 Lactobacillus Acidophilus (Bacid, Maria Esther-Bid) 1 tab TIDWMEALS PO Last administered on 08/10/16 11:20; Start 08/08/16 at 18:00 Acetaminophen/ Hydrocodone Bitart (Lortab 5/325) 1 tab PRN Q4HRS PRN PO MODERATE - SEVERE PAIN Last administered on 08/10/16 07:55; Start 08/08/16 at 17:45 Saccharomyces Boulardii (Florastor) 250 mg DAILY PO Last administered on 07:54; Start 08/10/16 at 09:00 Morphine Sulfate 4 mg 4 mg PRN Q2HRS PRN IV PAIN Last administered on 11:21; Start 08/09/16 at 13:00 Amino Acids/ Electrolytes/ Dextrose (Clinimix E 4.25%-5% Solution) 1,000 ml @ 80 mls/hr [id number] IV Last administered on 08/10/16 09:47; Start 08/10/16 at 09 :00 Active Scripts Active Hydrocodone-Apap 5-325 (Hydrocodone Bit/Acetaminophen) 1 Each Tablet 1 Tab PO PRN Q6HRS PRN Reported Lisinopril 20 Mg Tablet 1 Tab PO DAILY Oxybutynin Chloride 5 Mg Tablet 15 Mg PO DAILY [place] 10-325 Tablet (Acetaminophen/Hydrocodone Bitart) 1 Each Tablet 1-2 Tab PO Q4-6HRS Oxycodone Hcl 30 Mg Tablet 1 Tab PO BID Vitals/I & O Vital Sign - Last 24 Hours 08/09/16 08/09/16 08/09/16 08/09/16 13:37 13:37 15:04 16:21 Temp 97.9 97.9 Pulse 91 Resp 16 B/P 141/76 Pulse Ox 91 91 91 91 O2 Delivery Room Air Room Air Room Air Room Air 08/09/16 08/09/16 08/09/16 08/10/16 19:59 20:00 23:13 03:56 Temp 101.0 99.9 98.8 101.0 99.9 98.8 Pulse 91 94 83 Resp B/P 76/ 113/65 110/60 Pulse Ox 90 90 90 O2 Delivery Room Air Room Air Room Air Room Air 08/10/16 08/10/16 08/10/16 08/10/16 05:35 07:00 07:55 07:55 Temp 98.6 98.6 Pulse 75 Resp 16 16 16 B/P 94/58 Pulse Ox 90 90 90 O2 Delivery Room Air Room Air Room Air Room Air 08/10/16 08/10/16 08/10/16 08/10/16 08:00 08:25 08:55 11:21 Resp 16 16 16 Pulse Ox 90 90 90 O2 Delivery Room Air Room Air Room Air Room Air Intake and Output 08/09/16 08/09/16 08/10/16 15:00 23:00 07:00 Intake Total 960 ml 350 ml Output Total 200 ml Balance 960 ml 150 ml MICHAEL LOVE MD Aug 10, 2016 11:31
--- NOTE | 2016-08-10 12:38 | PDOC ---
Subjective: Subjective: no change per pt Objective: Vital Signs: Vital Signs Date Time Temp Pulse Resp B/P Pulse Ox O2 Delivery O2 Flow Rate FiO2 08/10/16 11:51 16 90 Room Air 08/10/16 11:00 98.5 69 109/62 98.5 Labs: na Physical Exam: Physical Exam: GEN: NAD HEENT: OP clear CV: S1S2 without murmurs, rubs, or gallops RESP: CTAB without wheezing, rhonchi, or crackles ABD: NABS, SNT/ND EXT: No edema NEURO: AAO x 3 Assessment & Plan: Assessment : 1) C diff Plan: 1) Cont PO vanco/flagyl 2) S boulardi probiotic 3) defer colonoscopy decision to dr rivero Problems: MICHELLE FINLEY MD Aug 10, 2016 12:38
[2016-08-10 15:00] VITALS: BP 107/66
[2016-08-10 19:00] VITALS: BP 111/59
[2016-08-10 23:00] VITALS: BP 140/66
[2016-08-11 03:00] VITALS: BP 128/72
[2016-08-11] MEDS: HYDROCODONE/APAP 5/325MG TABLET. PO PRN ×5 (03:22→21:13)
[2016-08-11] MEDS: MORPHINE SULFATE 4 MG/ML DISP.SYRIN. IV PRN ×3 (03:22→10:46)
[2016-08-11 04:10] LABS: HEMATOCRIT 30.6 % (36.0-47.0); RED BLOOD COUNT 3.36 x10^6/uL (3.50-5.40); RED CELL DISTRIBUTION WIDTH 13.7 % (11.5-14.5); WHITE BLOOD COUNT 13.1 x10^3/uL (4.0-11.0)
[2016-08-11 04:42] LABS: CREATININE 1.1 mg/dL (0.6-1.0); GFR 49.7; POTASSIUM 5.2 mmol/L (3.5-5.1)
[2016-08-11] MEDS: METRONIDAZOLE 250 MG TABLET PO SCH ×3 (05:24→21:13)
[2016-08-11] MEDS: ONDANSETRON ODT 4 MG TAB.RAPDIS PO PRN (05:28)
[2016-08-11 07:00] VITALS: BP 142/58
[2016-08-11] MEDS: SACCHAROMYCES BOULARDII 250 MG CAPSULE. PO SCH (08:53)
[2016-08-11] MEDS: LACTOBACILLUS ACIDOPH & BULGAR 1 TABLET. PO SCH ×3 (08:53→15:56)
[2016-08-11] MEDS: AA 4.25%/CALCIUM/LYTES/D5W 1,000 ML IV SCH (08:55)
[2016-08-11] MEDS: VANCOMYCIN 250 MG/5 ML ORAL SOLUTION. PO SCH ×4 (08:55→21:13)
[2016-08-11] MEDS: BISMUTH SUBSALICYLATE 262 MG/15 ML ORAL.SUSP 236ML BOTTLE. PO SCH ×4 (08:55→21:15)
[2016-08-11] MEDS ORDERED: ENOXAPARIN 40 MG/0.4 ML SYRINGE. SQ SCH (09:00)
[2016-08-11 11:00] VITALS: BP 154/70
--- NOTE | 2016-08-11 11:36 | PDOC ---
Subjective: Subjective: Pt seen earlier, [facility] wasn't responding. Says pain in unchanged. Can't tell me if she's had a bowel movement. Eating w/ some nausea but no vomiting. Objective: Objective: Stools charted. Tmax 100.2. Per RN - ongoing pain. Vital Signs: Vital Signs Date Time Temp Pulse Resp B/P Pulse Ox O2 Delivery O2 Flow Rate FiO2 08/11/16 11:00 99.7 88 20 154/70 93 Room Air 99.7 Labs: Laboratory Tests Test 08/11/16 02:55 White Blood Count 13.1x10^3/uL Red Blood Count 3.36x10^6/uL Hemoglobin 10.0g/dL Hematocrit 30.6% Mean Corpuscular Volume 91fL Mean Corpuscular Hemoglobin 30pg Mean Corpuscular Hemoglobin Concent 33g/dL Red Cell Distribution Width 13.7% Platelet Count 414x10^3/uL Sodium Level 135mmol/L Potassium Level 5.2mmol/L Chloride Level 100mmol/L Carbon Dioxide Level 32mmol/L Anion Gap 3 Blood Urea Nitrogen 18mg/dL Creatinine 1.1mg/dL Estimated GFR (Cockcroft-Gault) 49.7 Glucose Level 114mg/dL Calcium Level 8.0mg/dL Imaging: KUB 08/09/16 IMPRESSION: No acute finding seen in the abdomen on plain films PE: GEN: NAD, [facility] LUNGS: clear anteriorly HEART: RRR ABD: BS+, suprapubic and BLQ tenderness to light palpation, obese NEURO/PSYCH: A & O 3 A/P: C Diff -on PO vanc, IV Flagyl, probiotics Abd pain, nausea -pain still severe, unchanged -last colonoscopy 2010 to hepatic flexure, followed by barium enema ---> diverticulosis, internal hemorrhoids, redundancy; colonoscopy to cecum in 2008 -h/o reflux; last EGD 2010 w/ normal esophagus, gastritis, duodenal diverticulum ; h/o H. pylori treated in 2010 -CT on 08/06 w/ wall thickening in the sigmoid colon w/ possible low grade inflammation Leukocytosis, low grade fever -- Ongoing pain - ?interval CT - Cr 1.1 Will review w/ Dr. Connell. GIFTY PARKINSON Aug 11, 2016 11:36
[2016-08-11] MEDS ORDERED: CONTRAST GIVEN MC PRN (13:45)
[2016-08-11] MEDS ORDERED: IOHEXOL 240 MG/ML 50ML VIAL. PO ONE (14:00)
[2016-08-11 15:21] VITALS: BP 115/67
--- NOTE | 2016-08-11 15:52 | RAD ---
CT of the abdomen and pelvis without contrast, 08/11/2016: History: Lower abdominal pain No IV contrast was administered for this study as requested. The patient was given oral contrast material for GI tract opacification. Comparison is made to a study from 08/06/2016. The gallbladder is surgically absent. The unopacified liver shows no abnormality. No pancreatic abnormality is detected. The spleen is of normal size. There is bilateral renal cortical scarring. The kidneys show no evidence of obstruction. There is a probable small parapelvic renal cyst on the right. Aortoiliac calcific plaquing is present without evidence of aneurysm. The uterus is unremarkable. There is moderate mural thickening involving the proximal sigmoid colon. This is a focal process with abrupt transition to normal mucosal at the mid to distal sigmoid level. The colon proximal to this area of narrowing is mildly dilated with semisolid stool. The underlying mucosa surface is somewhat irregular in a pattern raising the possibility of an ulcerated neoplasm. There are 2 small diverticula in this region. There is moderate paracolic inflammation. There are several small lymph node type densities in the paracolic fat at this level with the largest of these measure approximately 11 x 12 x 15 mm. Similar findings were present on the previous study. The small bowel loops are unremarkable. No free fluid or free air is evident in the abdomen or pelvis. Multiple small radiopacities in the anterior aspect of the abdomen are most likely related to a surgical mesh. There is a moderate lumbar scoliosis with multilevel degenerative change. Degenerative changes are present at both hips. IMPRESSION: 1. Unchanged sigmoid mural thickening in pattern suggesting neoplastic infiltration more so than diverticulitis. Correlation with colonoscopic findings is suggested. 2. There is paracolic inflammation as well as mild nearby mesenteric adenopathy. PQRS Compliance Statement: One or more of the following individualized dose reduction techniques were utilized for this examination: 1. Automated exposure control 2. Adjustment of the mA and/or kV according to patient size 3. Use of iterative reconstruction technique
--- NOTE | 2016-08-11 17:37 | PDOC ---
PROGRESS NOTES Subjective Subjective she has still been having lower abdominal pain so CT repeated and it now seems more likely that she has a malignancy and may have lymph node involvement so she will need either a colonoscopy or sigmoidoscopy. Tolerating procalamine but her nutritional status is quite poor and she is not a good surgical candidate at this time Objective Objective Vital Signs Date Time Temp Pulse Resp B/P Pulse Ox O2 Delivery O2 Flow Rate FiO2 08/11/16 16:47 17 Room Air 08/11/16 15:21 98.2 92 115/67 94 98.2 Intake and Output 08/11/16 07:00 Intake Total 400 ml Balance 400 ml Intake Oral 400 ml # Voids 5 # Bowel Movements 2 Physical Exam Abdomen: Soft, Other (tenderness lower abdomen, no definite mass on palpaion but limited by obesity) Heart: Regular rate Extremities: No clubbing, No cyanosis General: Alert, Oriented X3, Cooperative HEENT: Atraumatic Lungs: Clear to auscultation MUSCULOSKELETAL: Other (right AKA) Neck: Supple Neuro: Normal speech Psych/Mental Status: Mental status NL Skin: No breakdown Assessment Assessment Problems Medical Problems: (1) Abdominal pain - now seems likely due to malignancy, complicated by malnutrition and C.diff. Will hold her lovenox tomorrow in anticipation of of oscopy/biopsy, she is not a good surgical candidate and may already have lymph node spread, consider MRI imaging. Will go ahead and consult surgery and oncology to see tomorrow. Continue C.diff treatment and Procalamine and pain meds Status: Acute Plan Plan of Care as above Comment Review of Relevant I have reviewed the following items marcio (where applicable) has been applied. Labs Laboratory Tests Test 08/11/16 02:55 White Blood Count 13.1x10^3/uL (4.0-11.0) Red Blood Count 3.36x10^6/uL (3.50-5.40) Hemoglobin 10.0g/dL (12.0-15.5) Hematocrit 30.6% (36.0-47.0) Mean Corpuscular Volume 91fL (79-100) Mean Corpuscular Hemoglobin 30pg (25-35) Mean Corpuscular Hemoglobin Concent 33g/dL (31-37) Red Cell Distribution Width 13.7% (11.5-14.5) Platelet Count 414x10^3/uL (140-400) Sodium Level 135mmol/L (136-145) Potassium Level 5.2mmol/L (3.5-5.1) Chloride Level 100mmol/L (98-107) Carbon Dioxide Level 32mmol/L (21-32) Anion Gap 3 (6-14) Blood Urea Nitrogen 18mg/dL (7-20) Creatinine 1.1mg/dL (0.6-1.0) Estimated GFR (Cockcroft-Gault) 49.7 Glucose Level 114mg/dL (70-99) Calcium Level 8.0mg/dL (8.5-10.1) Laboratory Tests Test 08/11/16 02:55 White Blood Count 13.1x10^3/uL (4.0-11.0) Red Blood Count 3.36x10^6/uL (3.50-5.40) Hemoglobin 10.0g/dL (12.0-15.5) Hematocrit 30.6% (36.0-47.0) Mean Corpuscular Volume 91fL (79-100) Mean Corpuscular Hemoglobin 30pg (25-35) Mean Corpuscular Hemoglobin Concent 33g/dL (31-37) Red Cell Distribution Width 13.7% (11.5-14.5) Platelet Count 414x10^3/uL (140-400) Sodium Level 135mmol/L (136-145) Potassium Level 5.2mmol/L (3.5-5.1) Chloride Level 100mmol/L (98-107) Carbon Dioxide Level 32mmol/L (21-32) Anion Gap 3 (6-14) Blood Urea Nitrogen 18mg/dL (7-20) Creatinine 1.1mg/dL (0.6-1.0) Estimated GFR (Cockcroft-Gault) 49.7 Glucose Level 114mg/dL (70-99) Calcium Level 8.0mg/dL (8.5-10.1) Microbiology 08/06/16 Urine Culture - Final, Complete 08/06/16 Urine Culture Result 1 (RICARDO) - Final, Complete Medications Current Medications Sodium Chloride (Iv Sodium Chloride 0.9% 1000ml Bag) 1,000 ml @ 1,000 mls/hr 1X ONCE IV Last administered on 08/06/16t 13:50; Start 08/06/16 at 13:15; Stop 08/06/16 at 14:14; Status DC Morphine Sulfate 4 mg 1X ONCE IV Last administered on 08/06/16 13:49; Start 08/06/16 at 13:15; Stop 08/06/16 at 13:16; Status DC Ondansetron HCl (Zofran) 4 mg 1X ONCE IV Last administered on 08/06/16 13:49 ; Start 08/06/16 at 13:15; Stop 08/06/16 at 13:16; Status DC Iohexol (Omnipaque 300 Mg/ml) 75 ml 1X ONCE IV Last administered on 08/06/16 13:56; Start 08/06/16 at 13:45; Stop 08/06/16 at 13:46; Status DC Info (Do NOT chart on this entry -- for MONITORING) 1 each PRN DAILY PRN MC SEE COMMENTS; Start 08/06/16 at 13:45; Stop 08/08/16 at 13:44; Status DC Ondansetron HCl (Zofran) 4 mg PRN Q8HRS PRN IV NAUSEA/VOMITING Last administered on 08/07/16 08:56; Start 08/06/16 at 15:15; Stop 08/07/16 at 15:14 ; Status DC Fentanyl Citrate 50 mcg 50 mcg PRN Q2HR PRN IV PAIN Last administered on 14:24; Start 08/06/16 at 15:15; Stop 08/07/16 at 15:14; Status DC Sodium Chloride (Iv Sodium Chloride 0.9% 1000ml Bag) 1,000 ml @ 100 mls/hr Q10H IV Last administered on 08/07/16 06:17; Start 08/06/16 at 15:09; Stop at 15:08; Status DC Acetaminophen (Tylenol) 650 mg PRN Q4HRS PRN PO FEVER; Start 08/06/16 at 15:15 ; Stop 08/07/16 at 15:14; Status DC Morphine Sulfate 4 mg 1X ONCE IV ; Start 08/06/16 at 17:30; Stop 08/06/16 at 17 :31; Status DC Morphine Sulfate 4 mg 4 mg PRN Q4HRS PRN IV PAIN Last administered on 09:43; Start 08/06/16 at 17:30; Stop 08/09/16 at 13:01; Status DC Levofloxacin/ Dextrose 100 ml @ 100 mls/hr Q24H IV Last administered on 17:19; Start 08/06/16 at 18:00; Stop 08/08/16 at 07:32; Status DC Metronidazole (FLAGYL 500Mmg PREMIX) 100 ml @ 100 mls/hr Q12HR IV Last administered on 08/08/16 08:47; Start 08/06/16 at 21:00; Stop 08/08/16 at 17:48 ; Status DC Bismuth Subsalicylate (Pepto-Bismol) 524 mg QID PO Last administered on 15:57; Start 08/06/16 at 21:00 Al Hydroxide/Mg Hydroxide (Mylanta Plus Xs) 30 ml PRN Q2HR PRN PO HEARTBURN / GAS Last administered on 08/09/16 13:37; Start 08/07/16 at 12:45 Ondansetron HCl (Zofran Odt) 4 mg PRN Q6HRS PRN PO NAUSEA/VOMITING Last administered on 08/11/16 05:28; Start 08/07/16 at 19:45 Acetaminophen (Tylenol) 325 mg PRN Q6HRS PRN PO MILD PAIN / TEMP Last administered on 08/08/16 01:42; Start 08/07/16 at 20:45 Acetaminophen (Tylenol) 650 mg PRN Q6HRS PRN PO MILD PAIN / TEMP Last administered on 08/07/16 20:45; Start 08/07/16 at 20:45 Diphenhydramine HCl (Benadryl) 25 mg PRN QHS PRN PO INSOMNIA Last administered on 08/07/16 21:57; Start 08/07/16 at 22:00 Vancomycin HCl 250 mg 250 mg [id number] PO Last administered on 08/11/16 15:56; Start 08/08/16 at 09:00 Amino Acids/ Electrolytes (Clinimix E 2.75%-5% Solution) 2,000 ml @ 80 mls/hr Q24H IV Last administered on 08/09/16 09:42; Start 08/08/16 at 08:00; Stop at 08:53; Status DC Metronidazole (Flagyl) 250 mg Q8HRS PO Last administered on 08/11/16 13:14; Start 08/08/16 at 22:00 Lactobacillus Acidophilus (Bacid, Maria Esther-Bid) 1 tab TIDWMEALS PO Last administered on 08/11/16 15:56; Start 08/08/16 at 18:00 Acetaminophen/ Hydrocodone Bitart (Lortab 5/325) 1 tab PRN Q4HRS PRN PO MODERATE - SEVERE PAIN Last administered on 08/11/16 15:56; Start 08/08/16 at 17:45 Saccharomyces Boulardii (Florastor) 250 mg DAILY PO Last administered on 08:53; Start 08/10/16 at 09:00 Morphine Sulfate 4 mg 4 mg PRN Q2HRS PRN IV PAIN Last administered on 10:46; Start 08/09/16 at 13:00 Amino Acids/ Electrolytes/ Dextrose (Clinimix E 4.25%-5% Solution) 1,000 ml @ 80 mls/hr [id number] IV Last administered on 08/11/16 08:55; Start 08/10/16 at 09 :00 Enoxaparin Sodium (Lovenox 40mg Syringe) 40 mg Q12H SQ Last administered on 08:54; Start 08/11/16 at 09:00 Iohexol (Omnipaque 240 Mg/ml) 50 ml 1X ONCE PO ; Start 08/11/16 at 14:00; Stop 08/11/16 at 14:01; Status DC Info (Do NOT chart on this entry -- for MONITORING) 1 each PRN DAILY PRN MC SEE COMMENTS; Start 08/11/16 at 13:45; Stop 08/13/16 at 13:44 Active Scripts Active Hydrocodone-Apap 5-325 (Hydrocodone Bit/Acetaminophen) 1 Each Tablet 1 Tab PO PRN Q6HRS PRN Reported Lisinopril 20 Mg Tablet 1 Tab PO DAILY Oxybutynin Chloride 5 Mg Tablet 15 Mg PO DAILY [place] 10-325 Tablet (Acetaminophen/Hydrocodone Bitart) 1 Each Tablet 1-2 Tab PO Q4-6HRS Oxycodone Hcl 30 Mg Tablet 1 Tab PO BID Vitals/I & O Vital Sign - Last 24 Hours 08/10/16 08/10/16 08/10/16 08/10/16 17:35 18:00 19:00 20:00 Temp 98.8 98.8 Pulse 84 Resp 16 17 B/P 111/59 Pulse Ox 90 90 89 O2 Delivery Room Air Room Air Room Air 08/10/16 08/11/16 08/11/16 08/11/16 23:00 03:00 03:22 05:25 Temp 100.2 99.3 100.2 99.3 Pulse 83 88 Resp 18 20 16 B/P 140/66 128/72 Pulse Ox 91 88 90 O2 Delivery Room Air Room Air Room Air 08/11/16 08/11/16 08/11/16 08/11/16 07:00 08:00 08:54 10:46 Temp 97.9 97.9 Pulse 89 Resp 20 16 16 B/P 142/58 Pulse Ox 93 O2 Delivery Room Air Room Air Room Air Room Air 08/11/16 08/11/16 08/11/16 08/11/16 11:00 12:21 12:22 15:21 Temp 99.7 98.2 99.7 98.2 Pulse 88 92 Resp 20 15 15 20 B/P 154/70 115/67 Pulse Ox 93 94 O2 Delivery Room Air Room Air Room Air Room Air 08/11/16 08/11/16 15:56 16:47 Resp 16 17 O2 Delivery Room Air Room Air Intake and Output 08/10/16 08/10/16 08/11/16 15:00 23:00 07:00 Intake Total 400 ml Balance 400 ml Yao HEATON MD Aug 11, 2016 17:37
[2016-08-11 19:38] VITALS: BP 130/64
[2016-08-11] MEDS ORDERED: POLYETHYLENE GLYCOL 3350 238 GM POWDER PO ONE (20:00)
[2016-08-11 23:31] VITALS: BP 130/64
[2016-08-12 03:18] VITALS: BP 137/71
[2016-08-12 04:49] LABS: ALBUMIN 1.8 g/dL (3.4-5.0); ALBUMIN/GLOBULIN RATIO 0.4 (1.0-1.7); CALCIUM 8.2 mg/dL (8.5-10.1); CREATININE 0.9 mg/dL (0.6-1.0); GFR 62.6; POTASSIUM 5.1 mmol/L (3.5-5.1); TOTAL BILIRUBIN 0.2 mg/dL (0.2-1.0); TOTAL PROTEIN 6.8 g/dL (6.4-8.2)
[2016-08-12] MEDS: METRONIDAZOLE 250 MG TABLET PO SCH ×3 (06:00→21:20)
[2016-08-12 07:00] VITALS: BP 145/84
[2016-08-12] MEDS: LACTOBACILLUS ACIDOPH & BULGAR 1 TABLET. PO SCH ×3 (07:12→17:13)
[2016-08-12] MEDS: VANCOMYCIN 250 MG/5 ML ORAL SOLUTION. PO SCH ×4 (07:12→21:20)
[2016-08-12] MEDS: SACCHAROMYCES BOULARDII 250 MG CAPSULE. PO SCH (07:12)
[2016-08-12] MEDS: BISMUTH SUBSALICYLATE 262 MG/15 ML ORAL.SUSP 236ML BOTTLE. PO SCH ×4 (07:13→21:21)
[2016-08-12] MEDS: MORPHINE SULFATE 4 MG/ML DISP.SYRIN. IV PRN ×3 (07:36→14:37)
--- NOTE | 2016-08-12 09:30 | PDOC ---
Provider Note Provider Note Med/Onc consult 1. Sigmoid mural thickening in pattern suggesting neoplastic infiltration more so than diverticulitis. Plan colonoscopy. I will f/u. see dictation # [id number] JAZZY PAZ MD Aug 12, 2016 09:30
--- NOTE | 2016-08-12 10:26 | PDOC2 ---
CONSULT Date of Consult Date of Consult DATE: 08/12/16 TIME: 10:24 History of Present Illness Reason for Visit: The patient is a 66 year old female who was admitted due to abdominal pain. She is very hard of hearing and a somewhat poor historian. Additional history was obtained from the records. The pain as been described as mostly in the LLQ and lower abdomen. An initial CT scan on 08/06 described an abnormality in the sigmoid colon consistent with inflammation or neoplasm. A FU CT yesterday continued to show an abnormal sigmoid colon and greater concern for malignancy. Past Medical History Past Medical History HTN, morbid obesity, hearing loss, osteoarthritis Past Surgical History Past Surgical History appy, open cole, abdominal hernia repair, lower abdominal procedure?, R aka Social History No ALCOHOL: none Drugs: None Current Problem List Problem List Problems Medical Problems: (1) Abdominal pain Status: Acute Current Medications Current Medications Current Medications Sodium Chloride (Iv Sodium Chloride 0.9% 1000ml Bag) 1,000 ml @ 1,000 mls/hr 1X ONCE IV Last administered on 08/06/16 13:50; Start 08/06/16 at 13:15; Stop 08/06/16 at 14:14; Status DC Morphine Sulfate 4 mg 1X ONCE IV Last administered on 08/06/16 13:49; Start 08/06/16 at 13:15; Stop 08/06/16 at 13:16; Status DC Ondansetron HCl (Zofran) 4 mg 1X ONCE IV Last administered on 08/06/16 13:49 ; Start 08/06/16 at 13:15; Stop 08/06/16 at 13:16; Status DC Iohexol (Omnipaque 300 Mg/ml) 75 ml 1X ONCE IV Last administered on 08/06/16 13:56; Start 08/06/16 at 13:45; Stop 08/06/16 at 13:46; Status DC Info (Do NOT chart on this entry -- for MONITORING) 1 each PRN DAILY PRN MC SEE COMMENTS; Start 08/06/16 at 13:45; Stop 08/08/16 at 13:44; Status DC Ondansetron HCl (Zofran) 4 mg PRN Q8HRS PRN IV NAUSEA/VOMITING Last administered on 08/07/16 08:56; Start 08/06/16 at 15:15; Stop 08/07/16 at 15:14 ; Status DC Fentanyl Citrate 50 mcg 50 mcg PRN Q2HR PRN IV PAIN Last administered on 14:24; Start 08/06/16 at 15:15; Stop 08/07/16 at 15:14; Status DC Sodium Chloride (Iv Sodium Chloride 0.9% 1000ml Bag) 1,000 ml @ 100 mls/hr Q10H IV Last administered on 08/07/16 06:17; Start 08/06/16 at 15:09; Stop at 15:08; Status DC Acetaminophen (Tylenol) 650 mg PRN Q4HRS PRN PO FEVER; Start 08/06/16 at 15:15 ; Stop 08/07/16 at 15:14; Status DC Morphine Sulfate 4 mg 1X ONCE IV ; Start 08/06/16 at 17:30; Stop 08/06/16 at 17 :31; Status DC Morphine Sulfate 4 mg 4 mg PRN Q4HRS PRN IV PAIN Last administered on 09:43; Start 08/06/16 at 17:30; Stop 08/09/16 at 13:01; Status DC Levofloxacin/ Dextrose 100 ml @ 100 mls/hr Q24H IV Last administered on 17:19; Start 08/06/16 at 18:00; Stop 08/08/16 at 07:32; Status DC Metronidazole (FLAGYL 500Mmg PREMIX) 100 ml @ 100 mls/hr Q12HR IV Last administered on 08/08/16 08:47; Start 08/06/16 at 21:00; Stop 08/08/16 at 17:48 ; Status DC Bismuth Subsalicylate (Pepto-Bismol) 524 mg QID PO Last administered on 21:15; Start 08/06/16 at 21:00 Al Hydroxide/Mg Hydroxide (Mylanta Plus Xs) 30 ml PRN Q2HR PRN PO HEARTBURN / GAS Last administered on 08/09/16 13:37; Start 08/07/16 at 12:45 Ondansetron HCl (Zofran Odt) 4 mg PRN Q6HRS PRN PO NAUSEA/VOMITING Last administered on 08/11/16 05:28; Start 08/07/16 at 19:45 Acetaminophen (Tylenol) 325 mg PRN Q6HRS PRN PO MILD PAIN / TEMP Last administered on 08/08/16 01:42; Start 08/07/16 at 20:45 Acetaminophen (Tylenol) 650 mg PRN Q6HRS PRN PO MILD PAIN / TEMP Last administered on 08/07/16 20:45; Start 08/07/16 at 20:45 Diphenhydramine HCl (Benadryl) 25 mg PRN QHS PRN PO INSOMNIA Last administered on 08/07/16 21:57; Start 08/07/16 at 22:00 Vancomycin HCl 250 mg 250 mg [id number] PO Last administered on 08/11/16 21:13; Start 08/08/16 at 09:00 Amino Acids/ Electrolytes (Clinimix E 2.75%-5% Solution) 2,000 ml @ 80 mls/hr Q24H IV Last administered on 08/09/16 09:42; Start 08/08/16 at 08:00; Stop at 08:53; Status DC Metronidazole (Flagyl) 250 mg Q8HRS PO Last administered on 08/11/16 21:13; Start 08/08/16 at 22:00 Lactobacillus Acidophilus (Bacid, Maria Esther-Bid) 1 tab TIDWMEALS PO Last administered on 08/11/16 15:56; Start 08/08/16 at 18:00 Acetaminophen/ Hydrocodone Bitart (Lortab 5/325) 1 tab PRN Q4HRS PRN PO MODERATE - SEVERE PAIN Last administered on 08/11/16 21:13; Start 08/08/16 at 17:45 Saccharomyces Boulardii (Florastor) 250 mg DAILY PO Last administered on 08:53; Start 08/10/16 at 09:00 Morphine Sulfate 4 mg 4 mg PRN Q2HRS PRN IV PAIN Last administered on 07:36; Start 08/09/16 at 13:00 Amino Acids/ Electrolytes/ Dextrose (Clinimix E 4.25%-5% Solution) 1,000 ml @ 80 mls/hr [id number] IV Last administered on 08/11/16 08:55; Start 08/10/16 at 09 :00; Stop 08/11/16 at 17:51; Status DC Enoxaparin Sodium (Lovenox 40mg Syringe) 40 mg Q12H SQ Last administered on 08:54; Start 08/11/16 at 09:00; Stop 08/11/16 at 17:26; Status DC Iohexol (Omnipaque 240 Mg/ml) 50 ml 1X ONCE PO ; Start 08/11/16 at 14:00; Stop 08/11/16 at 14:01; Status DC Info (Do NOT chart on this entry -- for MONITORING) 1 each PRN DAILY PRN MC SEE COMMENTS; Start 08/11/16 at 13:45; Stop 08/13/16 at 13:44 Polyethylene Glycol (miraLAX Powder BULK BOTTLE) 238 gm 1X ONCE PO Last administered on 08/11/16 21:15; Start 08/11/16 at 20:00; Stop 08/11/16 at 20:01 ; Status DC Active Scripts Active Hydrocodone-Apap 5-325 (Hydrocodone Bit/Acetaminophen) 1 Each Tablet 1 Tab PO PRN Q6HRS PRN Reported Lisinopril 20 Mg Tablet 1 Tab PO DAILY Oxybutynin Chloride 5 Mg Tablet 15 Mg PO DAILY [place] 10-325 Tablet (Acetaminophen/Hydrocodone Bitart) 1 Each Tablet 1-2 Tab PO Q4-6HRS Oxycodone Hcl 30 Mg Tablet 1 Tab PO BID Allergies Allergies: Coded Allergies: codeine (Verified Allergy, Unknown, 08/08/16) TOLERATES MORPHINE meperidine (Verified Adverse Reaction, Intermediate, Nausea and Vomiting, 08/06/16) ROS Review of System ROS difficult to obtain, pt very hard of hearing and poor historian; primary complaint is abdominal pain, she denies other system complaints Physical Exam General: Alert, Oriented X3, Other HEENT: Atraumatic Lungs: Clear to auscultation Heart: Regular rate Abdomen: Soft (tender diffusely, more prominent in low abdomen, multiple prior surgical scars) Extremities: No clubbing, No cyanosis Skin: No rashes, No breakdown Neuro: Normal speech Psych/Mental Status: Mental status NL MUSCULOSKELETAL: Other (prior R aka) Vitals VITALS Vital Signs Date Time Temp Pulse Resp B/P Pulse Ox O2 Delivery O2 Flow Rate FiO2 08/12/16 10:07 16 Room Air 08/12/16 08:00 87 08/12/16 07:00 98.6 145/84 94 98.6 Labs Labs Laboratory Tests Test 08/11/16 02:55 08/12/16 03:20 White Blood Count 13.1x10^3/uL (4.0-11.0) Red Blood Count 3.36x10^6/uL (3.50-5.40) Hemoglobin 10.0g/dL (12.0-15.5) Hematocrit 30.6% (36.0-47.0) Mean Corpuscular Volume 91fL (79-100) Mean Corpuscular Hemoglobin 30pg (25-35) Mean Corpuscular Hemoglobin Concent 33g/dL (31-37) Red Cell Distribution Width 13.7% (11.5-14.5) Platelet Count 414x10^3/uL (140-400) Sodium Level 135mmol/L (136-145) 136mmol/L (136-145) Potassium Level 5.2mmol/L (3.5-5.1) 5.1mmol/L (3.5-5.1) Chloride Level 100mmol/L (98-107) 101mmol/L (98-107) Carbon Dioxide Level 32mmol/L (21-32) 32mmol/L (21-32) Anion Gap 3 (6-14) 3 (6-14) Blood Urea Nitrogen 18mg/dL (7-20) 17mg/dL (7-20) Creatinine 1.1mg/dL (0.6-1.0) 0.9mg/dL (0.6-1.0) Estimated GFR (Cockcroft-Gault) 49.7 62.6 Glucose Level 114mg/dL (70-99) 108mg/dL (70-99) Calcium Level 8.0mg/dL (8.5-10.1) 8.2mg/dL (8.5-10.1) BUN/Creatinine Ratio 19 (6-20) Total Bilirubin 0.2mg/dL (0.2-1.0) Aspartate Amino Transf (AST/SGOT) 19U/L (15-37) Alanine Aminotransferase (ALT/SGPT) 8U/L (14-59) Alkaline Phosphatase 101U/L (46-116) Total Protein 6.8g/dL (6.4-8.2) Albumin 1.8g/dL (3.4-5.0) Albumin/Globulin Ratio 0.4 (1.0-1.7) Laboratory Tests Test 08/12/16 03:20 Sodium Level 136mmol/L (136-145) Potassium Level 5.1mmol/L (3.5-5.1) Chloride Level 101mmol/L (98-107) Carbon Dioxide Level 32mmol/L (21-32) Anion Gap 3 (6-14) Blood Urea Nitrogen 17mg/dL (7-20) Creatinine 0.9mg/dL (0.6-1.0) Estimated GFR (Cockcroft-Gault) 62.6 BUN/Creatinine Ratio 19 (6-20) Glucose Level 108mg/dL (70-99) Calcium Level 8.2mg/dL (8.5-10.1) Total Bilirubin 0.2mg/dL (0.2-1.0) Aspartate Amino Transf (AST/SGOT) 19U/L (15-37) Alanine Aminotransferase (ALT/SGPT) 8U/L (14-59) Alkaline Phosphatase 101U/L (46-116) Total Protein 6.8g/dL (6.4-8.2) Albumin 1.8g/dL (3.4-5.0) Albumin/Globulin Ratio 0.4 (1.0-1.7) Images Images Assessment/Plan Assessment/Plan Abdominal pain, sigmoid colon abnormality, concerning for malignancy. Colonoscopy planned today; suspect will need bowel resection; agree with earlier assessment that patient is not a very good surgical candidate with significant risk of complications. Will follow, thanks for the consult! JOSE MAR MD Aug 12, 2016 10:26
[2016-08-12 10:53] VITALS: BP 144/72
--- NOTE | 2016-08-12 13:03 | PDOC ---
PROGRESS NOTES Subjective Subjective She is trying to finish colon prep but still has more to drink. She is off ProcalAmine due to hyperK+ yesterday but still 5.1 this am but her albumin is up to 1.8 from 1.6 so still significantly protein deficient, off Lovenox in anticipation of biopsy with colonoscopy which she hopefully will be prepped well enough to do Objective Objective Vital Signs Date Time Temp Pulse Resp B/P Pulse Ox O2 Delivery O2 Flow Rate FiO2 08/12/16 11:05 16 Room Air 08/12/16 10:53 98.2 90 144/72 90 98.2 Intake and Output 08/12/16 07:00 Intake Total 0 ml Balance 0 ml Intake Oral 0 ml # Voids 4 # Bowel Movements 2 Physical Exam Abdomen: Normal bowel sounds, Soft, Other (tender above bladder) Extremities: No clubbing, No cyanosis, No edema General: Alert, Oriented X3, Cooperative HEENT: Atraumatic Lungs: Clear to auscultation Neck: Supple Neuro: Normal speech Psych/Mental Status: Mental status NL Skin: No breakdown Assessment Assessment Problems Medical Problems: (1) Abdominal pain Status: Acute Plan Plan of Care colonoscopy, surgery and oncology also now involved, high risk for surgical complications, post op complications if surgery needed Comment Review of Relevant I have reviewed the following items marcio (where applicable) has been applied. Labs Laboratory Tests Test 08/11/16 02:55 08/12/16 03:20 White Blood Count 13.1x10^3/uL (4.0-11.0) Red Blood Count 3.36x10^6/uL (3.50-5.40) Hemoglobin 10.0g/dL (12.0-15.5) Hematocrit 30.6% (36.0-47.0) Mean Corpuscular Volume 91fL (79-100) Mean Corpuscular Hemoglobin 30pg (25-35) Mean Corpuscular Hemoglobin Concent 33g/dL (31-37) Red Cell Distribution Width 13.7% (11.5-14.5) Platelet Count 414x10^3/uL (140-400) Sodium Level 135mmol/L (136-145) 136mmol/L (136-145) Potassium Level 5.2mmol/L (3.5-5.1) 5.1mmol/L (3.5-5.1) Chloride Level 100mmol/L (98-107) 101mmol/L (98-107) Carbon Dioxide Level 32mmol/L (21-32) 32mmol/L (21-32) Anion Gap 3 (6-14) 3 (6-14) Blood Urea Nitrogen 18mg/dL (7-20) 17mg/dL (7-20) Creatinine 1.1mg/dL (0.6-1.0) 0.9mg/dL (0.6-1.0) Estimated GFR (Cockcroft-Gault) 49.7 62.6 Glucose Level 114mg/dL (70-99) 108mg/dL (70-99) Calcium Level 8.0mg/dL (8.5-10.1) 8.2mg/dL (8.5-10.1) BUN/Creatinine Ratio 19 (6-20) Total Bilirubin 0.2mg/dL (0.2-1.0) Aspartate Amino Transf (AST/SGOT) 19U/L (15-37) Alanine Aminotransferase (ALT/SGPT) 8U/L (14-59) Alkaline Phosphatase 101U/L (46-116) Total Protein 6.8g/dL (6.4-8.2) Albumin 1.8g/dL (3.4-5.0) Albumin/Globulin Ratio 0.4 (1.0-1.7) Laboratory Tests Test 08/12/16 03:20 Sodium Level 136mmol/L (136-145) Potassium Level 5.1mmol/L (3.5-5.1) Chloride Level 101mmol/L (98-107) Carbon Dioxide Level 32mmol/L (21-32) Anion Gap 3 (6-14) Blood Urea Nitrogen 17mg/dL (7-20) Creatinine 0.9mg/dL (0.6-1.0) Estimated GFR (Cockcroft-Gault) 62.6 BUN/Creatinine Ratio 19 (6-20) Glucose Level 108mg/dL (70-99) Calcium Level 8.2mg/dL (8.5-10.1) Total Bilirubin 0.2mg/dL (0.2-1.0) Aspartate Amino Transf (AST/SGOT) 19U/L (15-37) Alanine Aminotransferase (ALT/SGPT) 8U/L (14-59) Alkaline Phosphatase 101U/L (46-116) Total Protein 6.8g/dL (6.4-8.2) Albumin 1.8g/dL (3.4-5.0) Albumin/Globulin Ratio 0.4 (1.0-1.7) Microbiology 08/06/16 Urine Culture - Final, Complete 08/06/16 Urine Culture Result 1 (RICARDO) - Final, Complete Medications Current Medications Sodium Chloride (Iv Sodium Chloride 0.9% 1000ml Bag) 1,000 ml @ 1,000 mls/hr 1X ONCE IV Last administered on 08/06/16 13:50; Start 08/06/16 at 13:15; Stop 08/06/16 at 14:14; Status DC Morphine Sulfate 4 mg 1X ONCE IV Last administered on 08/06/16 13:49; Start 08/06/16 at 13:15; Stop 08/06/16 at 13:16; Status DC Ondansetron HCl (Zofran) 4 mg 1X ONCE IV Last administered on 08/06/16 13:49 ; Start 08/06/16 at 13:15; Stop 08/06/16 at 13:16; Status DC Iohexol (Omnipaque 300 Mg/ml) 75 ml 1X ONCE IV Last administered on 08/06/16 13:56; Start 08/06/16 at 13:45; Stop 08/06/16 at 13:46; Status DC Info (Do NOT chart on this entry -- for MONITORING) 1 each PRN DAILY PRN MC SEE COMMENTS; Start 08/06/16 at 13:45; Stop 08/08/16 at 13:44; Status DC Ondansetron HCl (Zofran) 4 mg PRN Q8HRS PRN IV NAUSEA/VOMITING Last administered on 08/07/16 08:56; Start 08/06/16 at 15:15; Stop 08/07/16 at 15:14 ; Status DC Fentanyl Citrate 50 mcg 50 mcg PRN Q2HR PRN IV PAIN Last administered on 14:24; Start 08/06/16 at 15:15; Stop 08/07/16 at 15:14; Status DC Sodium Chloride (Iv Sodium Chloride 0.9% 1000ml Bag) 1,000 ml @ 100 mls/hr Q10H IV Last administered on 08/07/16 06:17; Start 08/06/16 at 15:09; Stop at 15:08; Status DC Acetaminophen (Tylenol) 650 mg PRN Q4HRS PRN PO FEVER; Start 08/06/16 at 15:15 ; Stop 08/07/16 at 15:14; Status DC Morphine Sulfate 4 mg 1X ONCE IV ; Start 08/06/16 at 17:30; Stop 08/06/16 at 17 :31; Status DC Morphine Sulfate 4 mg 4 mg PRN Q4HRS PRN IV PAIN Last administered on 09:43; Start 08/06/16 at 17:30; Stop 08/09/16 at 13:01; Status DC Levofloxacin/ Dextrose 100 ml @ 100 mls/hr Q24H IV Last administered on 17:19; Start 08/06/16 at 18:00; Stop 08/08/16 at 07:32; Status DC Metronidazole (FLAGYL 500Mmg PREMIX) 100 ml @ 100 mls/hr Q12HR IV Last administered on 08/08/16 08:47; Start 08/06/16 at 21:00; Stop 08/08/16 at 17:48 ; Status DC Bismuth Subsalicylate (Pepto-Bismol) 524 mg QID PO Last administered on 21:15; Start 08/06/16 at 21:00 Al Hydroxide/Mg Hydroxide (Mylanta Plus Xs) 30 ml PRN Q2HR PRN PO HEARTBURN / GAS Last administered on 08/09/16 13:37; Start 08/07/16 at 12:45 Ondansetron HCl (Zofran Odt) 4 mg PRN Q6HRS PRN PO NAUSEA/VOMITING Last administered on 08/11/16 05:28; Start 08/07/16 at 19:45 Acetaminophen (Tylenol) 325 mg PRN Q6HRS PRN PO MILD PAIN / TEMP Last administered on 08/08/16 01:42; Start 08/07/16 at 20:45 Acetaminophen (Tylenol) 650 mg PRN Q6HRS PRN PO MILD PAIN / TEMP Last administered on 08/07/16 20:45; Start 08/07/16 at 20:45 Diphenhydramine HCl (Benadryl) 25 mg PRN QHS PRN PO INSOMNIA Last administered on 08/07/16 21:57; Start 08/07/16 at 22:00 Vancomycin HCl 250 mg 250 mg [id number] PO Last administered on 08/11/16 21:13; Start 08/08/16 at 09:00 Amino Acids/ Electrolytes (Clinimix E 2.75%-5% Solution) 2,000 ml @ 80 mls/hr Q24H IV Last administered on 08/09/16 09:42; Start 08/08/16 at 08:00; Stop at 08:53; Status DC Metronidazole (Flagyl) 250 mg Q8HRS PO Last administered on 08/11/16 21:13; Start 08/08/16 at 22:00 Lactobacillus Acidophilus (Bacid, Maria Esther-Bid) 1 tab TIDWMEALS PO Last administered on 08/11/16 15:56; Start 08/08/16 at 18:00 Acetaminophen/ Hydrocodone Bitart (Lortab 5/325) 1 tab PRN Q4HRS PRN PO MODERATE - SEVERE PAIN Last administered on 08/11/16 21:13; Start 08/08/16 at 17:45 Saccharomyces Boulardii (Florastor) 250 mg DAILY PO Last administered on 08:53; Start 08/10/16 at 09:00 Morphine Sulfate 4 mg 4 mg PRN Q2HRS PRN IV PAIN Last administered on 10:33; Start 08/09/16 at 13:00 Amino Acids/ Electrolytes/ Dextrose (Clinimix E 4.25%-5% Solution) 1,000 ml @ 80 mls/hr [id number] IV Last administered on 08/11/16 08:55; Start 08/10/16 at 09 :00; Stop 08/11/16 at 17:51; Status DC Enoxaparin Sodium (Lovenox 40mg Syringe) 40 mg Q12H SQ Last administered on 08:54; Start 08/11/16 at 09:00; Stop 08/11/16 at 17:26; Status DC Iohexol (Omnipaque 240 Mg/ml) 50 ml 1X ONCE PO ; Start 08/11/16 at 14:00; Stop 08/11/16 at 14:01; Status DC Info (Do NOT chart on this entry -- for MONITORING) 1 each PRN DAILY PRN MC SEE COMMENTS; Start 08/11/16 at 13:45; Stop 08/13/16 at 13:44 Polyethylene Glycol (miraLAX Powder BULK BOTTLE) 238 gm 1X ONCE PO Last administered on 08/11/16t 21:15; Start 08/11/16 at 20:00; Stop 08/11/16 at 20:01 ; Status DC Active Scripts Active Hydrocodone-Apap 5-325 (Hydrocodone Bit/Acetaminophen) 1 Each Tablet 1 Tab PO PRN Q6HRS PRN Reported Lisinopril 20 Mg Tablet 1 Tab PO DAILY Oxybutynin Chloride 5 Mg Tablet 15 Mg PO DAILY Magna 10-325 Tablet (Acetaminophen/Hydrocodone Bitart) 1 Each Tablet 1-2 Tab PO Q4-6HRS Oxycodone Hcl 30 Mg Tablet 1 Tab PO BID Vitals/I & O Vital Sign - Last 24 Hours 08/11/16 08/11/16 08/11/16 08/11/16 15:21 15:56 16:47 19:38 Temp 98.2 98.2 98.2 98.2 Pulse 92 71 Resp 20 16 17 18 B/P 115/67 130/64 Pulse Ox 94 91 O2 Delivery Room Air Room Air Room Air 08/11/16 08/11/16 08/11/16 08/11/16 20:00 21:13 22:20 23:31 Temp 98.2 98.2 Pulse 71 Resp 18 B/P 130/64 Pulse Ox 91 O2 Delivery Room Air Room Air Room Air Room Air 08/12/16 08/12/16 08/12/16 08/12/16 03:18 07:00 07:36 07:40 Temp 99.1 98.6 99.1 98.6 Pulse 85 96 Resp 18 20 16 B/P 137/71 145/84 Pulse Ox 91 94 O2 Delivery Room Air Room Air Room Air Room Air 08/12/16 08/12/16 08/12/16 08/12/16 08:00 10:33 10:53 11:05 Temp 98.2 98.2 Pulse 87 90 Resp 16 20 16 B/P 144/72 Pulse Ox 90 O2 Delivery Room Air Room Air Room Air Intake and Output 08/11/16 08/11/16 08/12/16 15:00 23:00 07:00 Intake Total 0 ml Balance 0 ml Yao HEATON MD Aug 12, 2016 13:03
[2016-08-12 13:24] LABS: CA 125 15.2 U/mL (0.0-38.1)
[2016-08-12 15:00] VITALS: BP 138/63
[2016-08-12] MEDS ORDERED: SODIUM PHOSPHATES 19/7GM 133 ML ENEMA. PR ONE (15:45)
[2016-08-12] MEDS: IV RINGERS,LACTATED 1000ML 1,000 ML IV SCH (15:52)
[2016-08-12] MEDS ORDERED: DIPHENHYDRAMINE 50 MG/ML VIAL ONE (16:14)
[2016-08-12] MEDS ORDERED: MIDAZOLAM HCL/PF 5 MG/5 ML VIAL ONE (16:14)
[2016-08-12] MEDS ORDERED: MEPERIDINE PF 25 MG/ML VIAL. ONE (16:14)
[2016-08-12] MEDS ORDERED: FENTANYL PF 100 MCG/2 ML VIAL. ONE (16:19)
[2016-08-12] MEDS ORDERED: DIPHENHYDRAMINE 50 MG/ML VIAL IV ONE (16:25)
[2016-08-12] MEDS ORDERED: FENTANYL PF 100 MCG/2 ML VIAL. IV ONE ×2 (16:25→16:30)
[2016-08-12] MEDS ORDERED: MIDAZOLAM HCL/PF 5 MG/5 ML VIAL IV ONE ×3 (16:25→16:32)
--- NOTE | 2016-08-12 16:45 | PDOC4 ---
Operative Note Operative Note Colonoscopy to splenic flexure Meds Versed 3 mg/Fentanyl 100mcg/Benadryl 50 mg IV Pre-op dx abnl Ct scan/LLQ abd pain Post-op dx internal hemorrhoids active diverticulitis sigmoid colon with purulent drainage extent splenic flexure secondary to poor prep Plan medical therapy for diverticulitis possible resection if no improvement with above. despite increased surgical risks JOSE MOORE MD Aug 12, 2016 16:45
[2016-08-12] MEDS: HYDROCODONE/APAP 5/325MG TABLET. PO PRN (17:13)
[2016-08-12 19:10] VITALS: BP 128/63
[2016-08-12 23:10] VITALS: BP 137/72
[2016-08-13] MEDS: HYDROCODONE/APAP 5/325MG TABLET. PO PRN ×3 (00:03→18:01)
[2016-08-13] MEDS: ONDANSETRON ODT 4 MG TAB.RAPDIS PO PRN (00:04)
[2016-08-13 03:10] VITALS: BP 152/76
[2016-08-13] MEDS: IV RINGERS,LACTATED 1000ML 1,000 ML IV SCH ×2 (04:48→23:44)
[2016-08-13] MEDS: METRONIDAZOLE 250 MG TABLET PO SCH (06:01)
[2016-08-13 07:00] VITALS: BP 167/80
[2016-08-13] MEDS: VANCOMYCIN 250 MG/5 ML ORAL SOLUTION. PO SCH ×4 (08:14→21:00)
[2016-08-13] MEDS: SACCHAROMYCES BOULARDII 250 MG CAPSULE. PO SCH (08:14)
[2016-08-13] MEDS: BISMUTH SUBSALICYLATE 262 MG/15 ML ORAL.SUSP 236ML BOTTLE. PO SCH ×4 (08:14→20:28)
[2016-08-13] MEDS: LACTOBACILLUS ACIDOPH & BULGAR 1 TABLET. PO SCH ×3 (08:14→18:01)
--- NOTE | 2016-08-13 10:48 | PDOC ---
PROGRESS NOTES Subjective Subjective doing ok, hard of hearing, still some low abdominal pain Objective Objective Vital Signs Date Time Temp Pulse Resp B/P Pulse Ox O2 Delivery O2 Flow Rate FiO2 08/13/16 07:59 Room Air 08/13/16 07:00 97.7 77 20 167/80 94 97.7 08/12/16 16:35 2.0 Intake and Output 08/13/16 07:00 Intake Total 800 ml Balance 800 ml Intake Oral 300 ml IV Total 500 ml # Voids 5 # Bowel Movements 5 Physical Exam Abdomen: Soft (tender low abdomen) Heart: Regular rate Extremities: No clubbing, No cyanosis General: Alert HEENT: Atraumatic Lungs: Clear to auscultation Assessment Assessment Problems Medical Problems: (1) Abdominal pain Status: Acute Plan Plan of Care Colonoscopy results noted, no neoplasm, diverticulitis; active despite medical therapy; will as ID to see, continue with medical management for now, surgery remains possible if wont resolve with antibiotics, however very high risk Comment Review of Relevant I have reviewed the following items marcio (where applicable) has been applied. Labs Laboratory Tests Test 08/11/16 18:00 08/12/16 03:20 CA 125 Antigen 15.2U/mL (0.0-38.1) Sodium Level 136mmol/L (136-145) Potassium Level 5.1mmol/L (3.5-5.1) Chloride Level 101mmol/L (98-107) Carbon Dioxide Level 32mmol/L (21-32) Anion Gap 3 (6-14) Blood Urea Nitrogen 17mg/dL (7-20) Creatinine 0.9mg/dL (0.6-1.0) Estimated GFR (Cockcroft-Gault) 62.6 BUN/Creatinine Ratio 19 (6-20) Glucose Level 108mg/dL (70-99) Calcium Level 8.2mg/dL (8.5-10.1) Total Bilirubin 0.2mg/dL (0.2-1.0) Aspartate Amino Transf (AST/SGOT) 19U/L (15-37) Alanine Aminotransferase (ALT/SGPT) 8U/L (14-59) Alkaline Phosphatase 101U/L (46-116) Total Protein 6.8g/dL (6.4-8.2) Albumin 1.8g/dL (3.4-5.0) Albumin/Globulin Ratio 0.4 (1.0-1.7) Microbiology 08/06/16 Urine Culture - Final, Complete 08/06/16 Urine Culture Result 1 (RICARDO) - Final, Complete Medications Current Medications Sodium Chloride (Iv Sodium Chloride 0.9% 1000ml Bag) 1,000 ml @ 1,000 mls/hr 1X ONCE IV Last administered on 08/06/16 13:50; Start 08/06/16 at 13:15; Stop 08/06/16 at 14:14; Status DC Morphine Sulfate 4 mg 1X ONCE IV Last administered on 08/06/16 13:49; Start 08/06/16 at 13:15; Stop 08/06/16 at 13:16; Status DC Ondansetron HCl (Zofran) 4 mg 1X ONCE IV Last administered on 08/06/16 13:49 ; Start 08/06/16 at 13:15; Stop 08/06/16 at 13:16; Status DC Iohexol (Omnipaque 300 Mg/ml) 75 ml 1X ONCE IV Last administered on 08/06/16 13:56; Start 08/06/16 at 13:45; Stop 08/06/16 at 13:46; Status DC Info (Do NOT chart on this entry -- for MONITORING) 1 each PRN DAILY PRN MC SEE COMMENTS; Start 08/06/16 at 13:45; Stop 08/08/16 at 13:44; Status DC Ondansetron HCl (Zofran) 4 mg PRN Q8HRS PRN IV NAUSEA/VOMITING Last administered on 08/07/16 08:56; Start 08/06/16 at 15:15; Stop 08/07/16 at 15:14 ; Status DC Fentanyl Citrate 50 mcg 50 mcg PRN Q2HR PRN IV PAIN Last administered on 14:24; Start 08/06/16 at 15:15; Stop 08/07/16 at 15:14; Status DC Sodium Chloride (Iv Sodium Chloride 0.9% 1000ml Bag) 1,000 ml @ 100 mls/hr Q10H IV Last administered on 08/07/16 06:17; Start 08/06/16 at 15:09; Stop at 15:08; Status DC Acetaminophen (Tylenol) 650 mg PRN Q4HRS PRN PO FEVER; Start 08/06/16 at 15:15 ; Stop 08/07/16 at 15:14; Status DC Morphine Sulfate 4 mg 1X ONCE IV ; Start 08/06/16 at 17:30; Stop 08/06/16 at 17 :31; Status DC Morphine Sulfate 4 mg 4 mg PRN Q4HRS PRN IV PAIN Last administered on 09:43; Start 08/06/16 at 17:30; Stop 08/09/16 at 13:01; Status DC Levofloxacin/ Dextrose 100 ml @ 100 mls/hr Q24H IV Last administered on 17:19; Start 08/06/16 at 18:00; Stop 08/08/16 at 07:32; Status DC Metronidazole (FLAGYL 500Mmg PREMIX) 100 ml @ 100 mls/hr Q12HR IV Last administered on 08/08/16 08:47; Start 08/06/16 at 21:00; Stop 08/08/16 at 17:48 ; Status DC Bismuth Subsalicylate (Pepto-Bismol) 524 mg QID PO Last administered on 08:14; Start 08/06/16 at 21:00 Al Hydroxide/Mg Hydroxide (Mylanta Plus Xs) 30 ml PRN Q2HR PRN PO HEARTBURN / GAS Last administered on 08/09/16 13:37; Start 08/07/16 at 12:45 Ondansetron HCl (Zofran Odt) 4 mg PRN Q6HRS PRN PO NAUSEA/VOMITING Last administered on 08/13/16 00:04; Start 08/07/16 at 19:45 Acetaminophen (Tylenol) 325 mg PRN Q6HRS PRN PO MILD PAIN / TEMP Last administered on 08/08/16 01:42; Start 08/07/16 at 20:45 Acetaminophen (Tylenol) 650 mg PRN Q6HRS PRN PO MILD PAIN / TEMP Last administered on 08/07/16 20:45; Start 08/07/16 at 20:45 Diphenhydramine HCl (Benadryl) 25 mg PRN QHS PRN PO INSOMNIA Last administered on 08/07/16 21:57; Start 08/07/16 at 22:00 Vancomycin HCl 250 mg 250 mg [id number] PO Last administered on 08/13/16 08:14; Start 08/08/16 at 09:00 Amino Acids/ Electrolytes (Clinimix E 2.75%-5% Solution) 2,000 ml @ 80 mls/hr Q24H IV Last administered on 08/09/16 09:42; Start 08/08/16 at 08:00; Stop at 08:53; Status DC Metronidazole (Flagyl) 250 mg Q8HRS PO Last administered on 08/13/16 06:01; Start 08/08/16 at 22:00 Lactobacillus Acidophilus (Bacid, Maria Esther-Bid) 1 tab TIDWMEALS PO Last administered on 08/13/16 08:14; Start 08/08/16 at 18:00 Acetaminophen/ Hydrocodone Bitart (Lortab 5/325) 1 tab PRN Q4HRS PRN PO MODERATE - SEVERE PAIN Last administered on 08/13/16 00:03; Start 08/08/16 at 17:45 Saccharomyces Boulardii (Florastor) 250 mg DAILY PO Last administered on 08:14; Start 08/10/16 at 09:00 Morphine Sulfate 4 mg 4 mg PRN Q2HRS PRN IV PAIN Last administered on 14:37; Start 08/09/16 at 13:00 Amino Acids/ Electrolytes/ Dextrose (Clinimix E 4.25%-5% Solution) 1,000 ml @ 80 mls/hr [id number] IV Last administered on 08/11/16 08:55; Start 08/10/16 at 09 :00; Stop 08/11/16 at 17:51; Status DC Enoxaparin Sodium (Lovenox 40mg Syringe) 40 mg Q12H SQ Last administered on 08:54; Start 08/11/16 at 09:00; Stop 08/11/16 at 17:26; Status DC Iohexol (Omnipaque 240 Mg/ml) 50 ml 1X ONCE PO ; Start 08/11/16 at 14:00; Stop 08/11/16 at 14:01; Status DC Info (Do NOT chart on this entry -- for MONITORING) 1 each PRN DAILY PRN MC SEE COMMENTS; Start 08/11/16 at 13:45; Stop 08/13/16 at 13:44 Polyethylene Glycol (miraLAX Powder BULK BOTTLE) 238 gm 1X ONCE PO Last administered on 08/11/16 21:15; Start 08/11/16 at 20:00; Stop 08/11/16 at 20:01 ; Status DC Sodium Biphosphate/ Sodium Phosphate 133 ml 133 ml 1X ONCE GA Last administered on 08/12/16 15:52; Start 08/12/16 at 15:45; Stop 08/12/16 at 15:46 ; Status DC Lactated Ringer's (Iv Lactated Ringers) 1,000 ml @ 75 mls/hr [id number] IV Last administered on 08/12/16 15:52; Start 08/12/16 at 16:00 Meperidine HCl (Demerol) 25 mg STK-MED ONCE .ROUTE ; Start 08/12/16 at 16:14; Stop 08/12/16 at 16:15; Status DC Midazolam HCl (Versed) 5 mg STK-MED ONCE .ROUTE ; Start 08/12/16 at 16:14; Stop 08/12/16 at 16:15; Status DC Diphenhydramine HCl (Benadryl) 50 mg STK-MED ONCE .ROUTE ; Start 08/12/16 at 16: 14; Stop 08/12/16 at 16:15; Status DC Fentanyl Citrate (Fentanyl 2ml Vial) 100 mcg STK-MED ONCE .ROUTE ; Start at 16:19; Stop 08/12/16 at 16:20; Status DC Diphenhydramine HCl (Benadryl) 50 mg STK-MED ONCE IV Last administered on 16:25; Start 08/12/16 at 16:25; Stop 08/12/16 at 16:49; Status DC Midazolam HCl (Versed) 5 mg STK-MED ONCE IV Last administered on 08/12/16 16: 25; Start 08/12/16 at 16:25; Stop 08/12/16 at 16:49; Status DC Fentanyl Citrate (Fentanyl 2ml Vial) 100 mcg STK-MED ONCE IV Last administered on 08/12/16 16:25; Start 08/12/16 at 16:25; Stop 08/12/16 at 16:49; Status DC Fentanyl Citrate (Fentanyl 2ml Vial) 100 mcg STK-MED ONCE IV Last administered on 08/12/16 16:30; Start 08/12/16 at 16:30; Stop 08/12/16 at 16:49; Status DC Midazolam HCl (Versed) 5 mg STK-MED ONCE IV Last administered on 08/12/16 16: 30; Start 08/12/16 at 16:30; Stop 08/12/16 at 16:49; Status DC Midazolam HCl (Versed) 5 mg STK-MED ONCE IV Last administered on 08/12/16 16: 32; Start 08/12/16 at 16:32; Stop 08/12/16 at 16:49; Status DC Active Scripts Active Hydrocodone-Apap 5-325 (Hydrocodone Bit/Acetaminophen) 1 Each Tablet 1 Tab PO PRN Q6HRS PRN Reported Lisinopril 20 Mg Tablet 1 Tab PO DAILY Oxybutynin Chloride 5 Mg Tablet 15 Mg PO DAILY [place] 10-325 Tablet (Acetaminophen/Hydrocodone Bitart) 1 Each Tablet 1-2 Tab PO Q4-6HRS Oxycodone Hcl 30 Mg Tablet 1 Tab PO BID Vitals/I & O Vital Sign - Last 24 Hours 08/12/16 08/12/16 08/12/16 08/12/16 10:53 11:05 14:37 15:00 Temp 98.2 98.0 98.2 98.0 Pulse 90 89 Resp 20 16 14 20 B/P 144/72 138/63 Pulse Ox 90 90 O2 Delivery Room Air Room Air Room Air Room Air 08/12/16 08/12/16 08/12/16 08/12/16 15:14 15:14 16:22 16:28 Temp 98.4 98.4 Pulse 86 92 99 Resp 18 18 18 Pulse Ox 90 99 99 O2 Delivery Room Air Nasal Cannula Nasal Cannula O2 Flow Rate 4.0 4.0 08/12/16 08/12/16 08/12/16 08/12/16 16:34 16:35 16:52 17:13 Temp 99.5 99.5 Pulse 95 82 84 Resp 18 18 18 16 B/P 161/78 119/66 Pulse Ox 98 100 100 O2 Delivery Nasal Cannula Nasal Cannula Room Air Room Air O2 Flow Rate 4.0 2.0 08/12/16 08/12/16 08/12/16 08/12/16 17:17 18:00 19:10 20:10 Temp 98.1 98.1 Pulse 88 84 Resp 20 16 18 B/P 136/95 128/63 Pulse Ox 100 90 O2 Delivery Room Air Room Air Room Air Room Air 08/12/16 08/13/16 08/13/16 08/13/16 23:10 03:10 07:00 07:59 Temp 97.7 97.5 97.7 97.7 97.5 97.7 Pulse 75 68 77 Resp 18 18 20 B/P 137/72 152/76 167/80 Pulse Ox 94 94 94 O2 Delivery Room Air Room Air Room Air Room Air Intake and Output 08/12/16 08/12/16 08/13/16 15:00 23:00 07:00 Intake Total 500 ml 300 ml Balance 500 ml 300 ml JOSE MAR MD Aug 13, 2016 10:48
[2016-08-13 11:00] VITALS: BP 161/72
[2016-08-13] MEDS ORDERED: TIGECYCLINE 100 MG in IV NORMAL SALINE 100ML 100 ML IV ONE (11:15)
--- NOTE | 2016-08-13 11:18 | PDOC ---
Infectious Disease Note Vital Sign Vital Signs Vital Signs Date Time Temp Pulse Resp B/P Pulse Ox O2 Delivery O2 Flow Rate FiO2 08/13/16 07:59 Room Air 08/13/16 07:00 97.7 77 20 167/80 94 97.7 08/12/16 16:35 2.0 Objective Assessment Diverticulitis C diff Leukocytosis Abd pain Obesity Plan Plan of Care cont po vanc d/c flagyl start tygacil supportive care GRIS MARTIN MD Aug 13, 2016 11:18
--- NOTE | 2016-08-13 12:17 | PDOC ---
Subjective: Subjective: Still sore. Objective: Objective: Reviewed surg and ID notes, also d/w RN. Vital Signs: Vital Signs Date Time Temp Pulse Resp B/P Pulse Ox O2 Delivery O2 Flow Rate FiO2 08/13/16 11:00 98.8 76 18 161/72 92 Room Air 98.8 08/12/16 16:35 2.0 Imaging: Colonoscopy 08/12/16: internal hemorrhoids, active diverticulitis sigmoid colon with purulent drainage, extent splenic flexure secondary to poor prep. PE: GEN: NAD LUNGS: CTAB HEART: RRR ABD: NABS, S/ND/NT NEURO/PSYCH: A & O 3 A/P: C Diff and sigmoid diverticulitis -s/p colonoscopy 08/13 as above -ID and surg now following -- Consideration for surgery if no resolution w/ med therapy. Will follow. Diet per surg. GIFTY PARKINSON Aug 13, 2016 12:16
[2016-08-13 15:00] VITALS: BP 137/63
--- NOTE | 2016-08-13 15:40 | PDOC ---
PROGRESS NOTES Subjective Subjective Pt was seen about 930 this am and told of colonoscopy results but computer at that time would not let me put in orders, discussed with GI though and now on IV Tygacil and po vanco per ID for diverticulitis, no evidence of malignancy. She is afebrile but still having pain in the same lower suprapubic portion of her abdomen, she is urinating frequently Objective Objective Vital Signs Date Time Temp Pulse Resp B/P Pulse Ox O2 Delivery O2 Flow Rate FiO2 08/13/16 15:00 97.7 77 18 137/63 91 Room Air 97.7 08/12/16 16:35 2.0 Intake and Output 08/13/16 07:00 Intake Total 800 ml Balance 800 ml Intake Oral 300 ml IV Total 500 ml # Voids 5 # Bowel Movements 5 Physical Exam Abdomen: Soft Heart: Regular rate Extremities: No edema General: Alert, Oriented X3, Cooperative HEENT: Atraumatic Lungs: Clear to auscultation Neck: Supple Neuro: Normal speech Psych/Mental Status: Mental status NL Skin: No breakdown Assessment Assessment Problems Medical Problems: (1) Abdominal pain - no evidence of malignancy but has endoscopically proven diverticulitis of lower colon Status: Acute Plan Plan of Care IV tygacil for diverticulitis, po vanco and probiotics for C.diff, may need to restart procalamine but it caused hyperkalemia previously, advancing diet, will resume lovenox Comment Review of Relevant I have reviewed the following items marcio (where applicable) has been applied. Labs Laboratory Tests Test 08/11/16 18:00 08/12/16 03:20 CA 125 Antigen 15.2U/mL (0.0-38.1) Sodium Level 136mmol/L (136-145) Potassium Level 5.1mmol/L (3.5-5.1) Chloride Level 101mmol/L (98-107) Carbon Dioxide Level 32mmol/L (21-32) Anion Gap 3 (6-14) Blood Urea Nitrogen 17mg/dL (7-20) Creatinine 0.9mg/dL (0.6-1.0) Estimated GFR (Cockcroft-Gault) 62.6 BUN/Creatinine Ratio 19 (6-20) Glucose Level 108mg/dL (70-99) Calcium Level 8.2mg/dL (8.5-10.1) Total Bilirubin 0.2mg/dL (0.2-1.0) Aspartate Amino Transf (AST/SGOT) 19U/L (15-37) Alanine Aminotransferase (ALT/SGPT) 8U/L (14-59) Alkaline Phosphatase 101U/L (46-116) Total Protein 6.8g/dL (6.4-8.2) Albumin 1.8g/dL (3.4-5.0) Albumin/Globulin Ratio 0.4 (1.0-1.7) Microbiology 08/06/16 Urine Culture - Final, Complete 08/06/16 Urine Culture Result 1 (RICARDO) - Final, Complete Medications Current Medications Sodium Chloride (Iv Sodium Chloride 0.9% 1000ml Bag) 1,000 ml @ 1,000 mls/hr 1X ONCE IV Last administered on 08/06/16 13:50; Start 08/06/16 at 13:15; Stop 08/06/16 at 14:14; Status DC Morphine Sulfate 4 mg 1X ONCE IV Last administered on 08/06/16 13:49; Start 08/06/16 at 13:15; Stop 08/06/16 at 13:16; Status DC Ondansetron HCl (Zofran) 4 mg 1X ONCE IV Last administered on 08/06/16 13:49 ; Start 08/06/16 at 13:15; Stop 08/06/16 at 13:16; Status DC Iohexol (Omnipaque 300 Mg/ml) 75 ml 1X ONCE IV Last administered on 08/06/16 13:56; Start 08/06/16 at 13:45; Stop 08/06/16 at 13:46; Status DC Info (Do NOT chart on this entry -- for MONITORING) 1 each PRN DAILY PRN MC SEE COMMENTS; Start 08/06/16 at 13:45; Stop 08/08/16 at 13:44; Status DC Ondansetron HCl (Zofran) 4 mg PRN Q8HRS PRN IV NAUSEA/VOMITING Last administered on 08/07/16 08:56; Start 08/06/16 at 15:15; Stop 08/07/16 at 15:14 ; Status DC Fentanyl Citrate 50 mcg 50 mcg PRN Q2HR PRN IV PAIN Last administered on 14:24; Start 08/06/16 at 15:15; Stop 08/07/16 at 15:14; Status DC Sodium Chloride (Iv Sodium Chloride 0.9% 1000ml Bag) 1,000 ml @ 100 mls/hr Q10H IV Last administered on 08/07/16 06:17; Start 08/06/16 at 15:09; Stop at 15:08; Status DC Acetaminophen (Tylenol) 650 mg PRN Q4HRS PRN PO FEVER; Start 08/06/16 at 15:15 ; Stop 08/07/16 at 15:14; Status DC Morphine Sulfate 4 mg 1X ONCE IV ; Start 08/06/16 at 17:30; Stop 08/06/16 at 17 :31; Status DC Morphine Sulfate 4 mg 4 mg PRN Q4HRS PRN IV PAIN Last administered on 09:43; Start 08/06/16 at 17:30; Stop 08/09/16 at 13:01; Status DC Levofloxacin/ Dextrose 100 ml @ 100 mls/hr Q24H IV Last administered on 17:19; Start 08/06/16 at 18:00; Stop 08/08/16 at 07:32; Status DC Metronidazole (FLAGYL 500Mmg PREMIX) 100 ml @ 100 mls/hr Q12HR IV Last administered on 08/08/16 08:47; Start 08/06/16 at 21:00; Stop 08/08/16 at 17:48 ; Status DC Bismuth Subsalicylate (Pepto-Bismol) 524 mg QID PO Last administered on 12:08; Start 08/06/16 at 21:00 Al Hydroxide/Mg Hydroxide (Mylanta Plus Xs) 30 ml PRN Q2HR PRN PO HEARTBURN / GAS Last administered on 08/09/16 13:37; Start 08/07/16 at 12:45 Ondansetron HCl (Zofran Odt) 4 mg PRN Q6HRS PRN PO NAUSEA/VOMITING Last administered on 08/13/16 00:04; Start 08/07/16 at 19:45 Acetaminophen (Tylenol) 325 mg PRN Q6HRS PRN PO MILD PAIN / TEMP Last administered on 08/08/16 01:42; Start 08/07/16 at 20:45 Acetaminophen (Tylenol) 650 mg PRN Q6HRS PRN PO MILD PAIN / TEMP Last administered on 08/07/16 20:45; Start 08/07/16 at 20:45 Diphenhydramine HCl (Benadryl) 25 mg PRN QHS PRN PO INSOMNIA Last administered on 08/07/16 21:57; Start 08/07/16 at 22:00 Vancomycin HCl 250 mg 250 mg [id number] PO Last administered on 08/13/16 12:08; Start 08/08/16 at 09:00 Amino Acids/ Electrolytes (Clinimix E 2.75%-5% Solution) 2,000 ml @ 80 mls/hr Q24H IV Last administered on 08/09/16 09:42; Start 08/08/16 at 08:00; Stop at 08:53; Status DC Metronidazole (Flagyl) 250 mg Q8HRS PO Last administered on 08/13/16 06:01; Start 08/08/16 at 22:00; Stop 08/13/16 at 11:17; Status DC Lactobacillus Acidophilus (Bacid, Maria Esther-Bid) 1 tab TIDWMEALS PO Last administered on 08/13/16 12:08; Start 08/08/16 at 18:00 Acetaminophen/ Hydrocodone Bitart (Lortab 5/325) 1 tab PRN Q4HRS PRN PO MODERATE - SEVERE PAIN Last administered on 08/13/16 12:12; Start 08/08/16 at 17:45 Saccharomyces Boulardii (Florastor) 250 mg DAILY PO Last administered on 08:14; Start 08/10/16 at 09:00 Morphine Sulfate 4 mg 4 mg PRN Q2HRS PRN IV PAIN Last administered on 14:37; Start 08/09/16 at 13:00 Amino Acids/ Electrolytes/ Dextrose (Clinimix E 4.25%-5% Solution) 1,000 ml @ 80 mls/hr [id number] IV Last administered on 08/11/16 08:55; Start 08/10/16 at 09 :00; Stop 08/11/16 at 17:51; Status DC Enoxaparin Sodium (Lovenox 40mg Syringe) 40 mg Q12H SQ Last administered on 08:54; Start 08/11/16 at 09:00; Stop 08/11/16 at 17:26; Status DC Iohexol (Omnipaque 240 Mg/ml) 50 ml 1X ONCE PO ; Start 08/11/16 at 14:00; Stop 08/11/16 at 14:01; Status DC Info (Do NOT chart on this entry -- for MONITORING) 1 each PRN DAILY PRN MC SEE COMMENTS; Start 08/11/16 at 13:45; Stop 08/13/16 at 13:44; Status DC Polyethylene Glycol (miraLAX Powder BULK BOTTLE) 238 gm 1X ONCE PO Last administered on 08/11/16 21:15; Start 08/11/16 at 20:00; Stop 08/11/16 at 20:01 ; Status DC Sodium Biphosphate/ Sodium Phosphate 133 ml 133 ml 1X ONCE UT Last administered on 08/12/16 15:52; Start 08/12/16 at 15:45; Stop 08/12/16 at 15:46 ; Status DC Lactated Ringer's (Iv Lactated Ringers) 1,000 ml @ 75 mls/hr [id number] IV Last administered on 08/12/16 15:52; Start 08/12/16 at 16:00 Meperidine HCl (Demerol) 25 mg STK-MED ONCE .ROUTE ; Start 08/12/16 at 16:14; Stop 08/12/16 at 16:15; Status DC Midazolam HCl (Versed) 5 mg STK-MED ONCE .ROUTE ; Start 08/12/16 at 16:14; Stop 08/12/16 at 16:15; Status DC Diphenhydramine HCl (Benadryl) 50 mg STK-MED ONCE .ROUTE ; Start 08/12/16 at 16: 14; Stop 08/12/16 at 16:15; Status DC Fentanyl Citrate (Fentanyl 2ml Vial) 100 mcg STK-MED ONCE .ROUTE ; Start at 16:19; Stop 08/12/16 at 16:20; Status DC Diphenhydramine HCl (Benadryl) 50 mg STK-MED ONCE IV Last administered on 16:25; Start 08/12/16 at 16:25; Stop 08/12/16 at 16:49; Status DC Midazolam HCl (Versed) 5 mg STK-MED ONCE IV Last administered on 08/12/16 16: 25; Start 08/12/16 at 16:25; Stop 08/12/16 at 16:49; Status DC Fentanyl Citrate (Fentanyl 2ml Vial) 100 mcg STK-MED ONCE IV Last administered on 08/12/16 16:25; Start 08/12/16 at 16:25; Stop 08/12/16 at 16:49; Status DC Fentanyl Citrate (Fentanyl 2ml Vial) 100 mcg STK-MED ONCE IV Last administered on 08/12/16 16:30; Start 08/12/16 at 16:30; Stop 08/12/16 at 16:49; Status DC Midazolam HCl (Versed) 5 mg STK-MED ONCE IV Last administered on 08/12/16 16: 30; Start 08/12/16 at 16:30; Stop 08/12/16 at 16:49; Status DC Midazolam HCl 5 mg 5 mg STK-MED ONCE IV Last administered on 08/12/16 16:32; Start 08/12/16 at 16:32; Stop 08/12/16 at 16:49; Status DC Tigecycline 50 mg/ Sodium Chloride 50 ml @ 100 mls/hr Q12HR IV ; Start at 21:00 Tigecycline/ Sodium Chloride (Tygacil/Iv Sodium Chloride 0.9% 100ml) 100 ml @ 200 mls/hr 1X ONCE IV Last administered on 08/13/16 12:07; Start 08/13/16 at 11:15; Stop 08/13/16 at 11:44; Status DC Active Scripts Active Hydrocodone-Apap 5-325 (Hydrocodone Bit/Acetaminophen) 1 Each Tablet 1 Tab PO PRN Q6HRS PRN Reported Lisinopril 20 Mg Tablet 1 Tab PO DAILY Oxybutynin Chloride 5 Mg Tablet 15 Mg PO DAILY [place] 10-325 Tablet (Acetaminophen/Hydrocodone Bitart) 1 Each Tablet 1-2 Tab PO Q4-6HRS Oxycodone Hcl 30 Mg Tablet 1 Tab PO BID Vitals/I & O Vital Sign - Last 24 Hours 08/12/16 08/12/16 08/12/1617 16:22 16:28 16:34 16:35 Temp 99.5 99.5 Pulse 92 99 95 82 Resp 18 18 18 18 B/P 161/78 Pulse Ox 99 99 98 100 O2 Delivery Nasal Cannula Nasal Cannula Nasal Cannula Nasal Cannula O2 Flow Rate 4.0 4.0 4.0 2.0 08/12/16 08/12/16 08/12/16 08/12/16 16:52 17:13 17:17 18:00 Pulse 84 88 Resp 18 16 20 16 B/P 119/66 136/95 Pulse Ox 100 100 O2 Delivery Room Air Room Air Room Air 08/12/16 08/12/16 08/12/16 08/13/16 19:10 20:10 23:10 03:10 Temp 98.1 97.7 97.5 98.1 97.7 97.5 Pulse 84 75 68 Resp 18 18 B/P 128/63 137/72 152/76 Pulse Ox 90 94 94 O2 Delivery Room Air Room Air Room Air Room Air 08/13/16 08/13/16 08/13/16 08/13/16 07:00 07:59 11:00 12:12 Temp 97.7 98.8 97.7 98.8 Pulse 77 76 Resp 20 18 B/P 167/80 161/72 Pulse Ox 94 92 O2 Delivery Room Air Room Air Room Air Room Air 08/13/16 08/13/16 13:29 15:00 Temp 97.7 97.7 Pulse 77 Resp 18 B/P 137/63 Pulse Ox 91 O2 Delivery Room Air Room Air Intake and Output 08/12/16 08/12/16 08/13/16 15:00 23:00 07:00 Intake Total 500 ml 300 ml Balance 500 ml 300 ml Yao HEATON MD Aug 13, 2016 15:40
[2016-08-13] MEDS ORDERED: ENOXAPARIN 40 MG/0.4 ML SYRINGE. SQ SCH (16:00)
[2016-08-13] MEDS: TIGECYCLINE 50 MG in IV NORMAL SALINE 50ML 50 ML IV SCH (20:28)
[2016-08-13 20:38] VITALS: BP 118/61
[2016-08-13 23:13] VITALS: BP_SYST 128
[2016-08-14 03:54] VITALS: BP 155/68
--- NOTE | 2016-08-14 04:07 | CONS ---
DATE OF CONSULTATION: 08/13/2016 REQUESTING PHYSICIANS: Dr. Bronson Mann and Dr. Fidel Cisse. REASON FOR CONSULTATION: Diverticulitis and C. diff. HISTORY OF PRESENT ILLNESS: This is a 66-year-old morbidly obese patient who has also lost one leg, AKA, who comes in with abdominal pain. The patient was found to have a possible sigmoid mass. The patient's initial C.diff was positive. The patient was getting C. diff treatment, vancomycin and Flagyl and then subsequently a colonoscopy done, which is showing acute diverticulitis, hence consultation. The patient has very poor hearing. His communication is very limited due to patient is complaining of abdominal pain. He has had two loose stools. Denies any vomiting, denies any chest pain, denies any headache or visual symptoms. PAST MEDICAL HISTORY: Positive for morbid obesity, gastroesophageal reflux disease, osteoarthritis, right knee replacement with infection, eventually had . PAST SURGICAL HISTORY: The patient also has had appendicectomy, cholecystectomy, tonsillectomy and right above-knee amputation. ALLERGIES: LISTED ALLERGIC TO CODEINE AND MEPERIDINE. CURRENT MEDICATIONS: Reviewed. The patient is on p.o. vancomycin and p.o. Flagyl. REVIEW OF SYSTEMS: As per HPI, all other systems reviewed are negative. PHYSICAL EXAMINATION: GENERAL: Alert, oriented 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 VITAL SIGNS: Stable, afebrile. HEENT: NAD. NECK: Supple, no JVP, no lymphadenopathy. LUNGS: Clear. HEART: S1, S2 regular. ABDOMEN: Diffusely tender, no rebound or guarding. No localized tenderness. No organomegaly. EXTREMITIES: No edema or cyanosis. SKIN: Unremarkable. NEUROLOGIC: The patient is neurologically intact. LABORATORY DATA: White count is 13.1, BUN and creatinine is normal. Urinalysis unremarkable. C. diff is positive. CT scan of the abdomen and pelvis reviewed. The patient did have a colonoscopy yesterday and it showed active diverticulitis in the sigmoid colon with purulent drainage. IMPRESSION: 1. Active diverticulitis. 2. Clostridium difficile. 3. Leukocytosis. 4. Abdominal pain. 5. Obesity. RECOMMENDATIONS: I would discontinue Flagyl, continue p.o. vancomycin, add tigecycline, which not only will cover diverticulitis good, but is least disruptive for C. diff. Supportive care and will continue to follow. Thank you very much, Dr. Mann, for giving me the opportunity to participate in this patient's care. GRIS MARTIN MD DR: WANDER/amparo JOB#: [id number] / [id number]
[2016-08-14 04:08] LABS: BASO # 0.1 x10^3/uL (0.0-0.2); BASO % 1 % (0-3); EOS % 3 % (0-3); HEMATOCRIT 35.2 % (36.0-47.0); HEMOGLOBIN 11.5 g/dL (12.0-15.5); LYMPH # 2.6 x10^3/uL (1.0-4.8); LYMPH % 28 % (24-48); MEAN CORPUSCULAR HEMOGLOBIN 30 pg (25-35); MEAN CORPUSCULAR HGB CONC 33 g/dL (31-37); MEAN CORPUSCULAR VOLUME 91 fL (79-100); MONO % 11 % (0-9); NEUT % 57 % (31-73); PLATELET COUNT 457 x10^3/uL (140-400); RED BLOOD COUNT 3.87 x10^6/uL (3.50-5.40); RED CELL DISTRIBUTION WIDTH 13.9 % (11.5-14.5); WHITE BLOOD COUNT 9.3 x10^3/uL (4.0-11.0)
[2016-08-14 04:54] LABS: ALBUMIN 1.8 g/dL (3.4-5.0); ALBUMIN/GLOBULIN RATIO 0.4 (1.0-1.7); CALCIUM 8.5 mg/dL (8.5-10.1); CREATININE 0.9 mg/dL (0.6-1.0); GFR 62.6; POTASSIUM 5.2 mmol/L (3.5-5.1); TOTAL BILIRUBIN 0.3 mg/dL (0.2-1.0); TOTAL PROTEIN 6.7 g/dL (6.4-8.2)
[2016-08-14] MEDS ORDERED: ACETAMINOPHEN 325 MG TABLET. PO PRN ×2 (06:20→06:30)
[2016-08-14 07:30] VITALS: BP 170/67
--- NOTE | 2016-08-14 08:07 | PDOC ---
Infectious Disease Note Subjective Subjective pt feeling ok, still abd pain + ROS ROS GEN: Denies fevers, chills, sweats HEENT: Denies blurred vision, sore throat CV: Denies chest pain RESP: Denies shortness of air, cough GI: Denies n/v/ Vital Sign Vital Signs Vital Signs Date Time Temp Pulse Resp B/P Pulse Ox O2 Delivery O2 Flow Rate FiO2 08/14/16 07:30 97.5 65 20 170/67 96 Room Air 97.5 Physical Exam PHYSICAL EXAM GENERAL: NAD, Alert HEENT: PERRL, OC/OP NECK: Supple, no JVD, no LN LUNGS: Clear HEART: S1S2, no gallop, no murmur ABD: Soft, , no organomegaly, no rebound, mild diffuse tenderness EXT: No edema, no cyanosis, rt AKA EDGER LINER: Alert, oriented x 3, no focal neurologic deficit SKIN: No rash IV: ok Labs Lab Laboratory Tests Test 08/14/16 03:55 White Blood Count 9.3x10^3/uL (4.0-11.0) Red Blood Count 3.87x10^6/uL (3.50-5.40) Hemoglobin 11.5g/dL (12.0-15.5) Hematocrit 35.2% (36.0-47.0) Mean Corpuscular Volume 91fL (79-100) Mean Corpuscular Hemoglobin 30pg (25-35) Mean Corpuscular Hemoglobin Concent 33g/dL (31-37) Red Cell Distribution Width 13.9% (11.5-14.5) Platelet Count 457x10^3/uL (140-400) Neutrophils (%) (Auto) 57% (31-73) Lymphocytes (%) (Auto) 28% (24-48) Monocytes (%) (Auto) 11% (0-9) Eosinophils (%) (Auto) 3% (0-3) Basophils (%) (Auto) 1% (0-3) Neutrophils # (Auto) 5.3x10^3uL (1.8-7.7) Lymphocytes # (Auto) 2.6x10^3/uL (1.0-4.8) Monocytes # (Auto) 1.0x10^3/uL (0.0-1.1) Eosinophils # (Auto) 0.3x10^3/uL (0.0-0.7) Basophils # (Auto) 0.1x10^3/uL (0.0-0.2) Sodium Level 138mmol/L (136-145) Potassium Level 5.2mmol/L (3.5-5.1) Chloride Level 104mmol/L (98-107) Carbon Dioxide Level 30mmol/L (21-32) Anion Gap 4 (6-14) Blood Urea Nitrogen 15mg/dL (7-20) Creatinine 0.9mg/dL (0.6-1.0) Estimated GFR (Cockcroft-Gault) 62.6 BUN/Creatinine Ratio 17 (6-20) Glucose Level 90mg/dL (70-99) Calcium Level 8.5mg/dL (8.5-10.1) Total Bilirubin 0.3mg/dL (0.2-1.0) Aspartate Amino Transf (AST/SGOT) 20U/L (15-37) Alanine Aminotransferase (ALT/SGPT) 8U/L (14-59) Alkaline Phosphatase 47U/L (46-116) Total Protein 6.7g/dL (6.4-8.2) Albumin 1.8g/dL (3.4-5.0) Albumin/Globulin Ratio 0.4 (1.0-1.7) Objective Assessment Diverticulitis C diff Leukocytosis Abd pain Obesity Plan Plan of Care cont po vanc tygacil supportive care GRIS MARTIN MD Aug 14, 2016 08:06
[2016-08-14 08:25] LABS: CEA 4.8 ng/mL (0.0-4.7)
[2016-08-14] MEDS: SACCHAROMYCES BOULARDII 250 MG CAPSULE. PO SCH (08:28)
[2016-08-14] MEDS: LACTOBACILLUS ACIDOPH & BULGAR 1 TABLET. PO SCH ×3 (08:29→17:53)
[2016-08-14] MEDS: HYDROCODONE/APAP 5/325MG TABLET. PO PRN ×2 (08:29→20:27)
[2016-08-14] MEDS: BISMUTH SUBSALICYLATE 262 MG/15 ML ORAL.SUSP 236ML BOTTLE. PO SCH ×4 (08:30→20:27)
[2016-08-14] MEDS: VANCOMYCIN 250 MG/5 ML ORAL SOLUTION. PO SCH ×4 (08:30→20:34)
[2016-08-14] MEDS: ENOXAPARIN 40 MG/0.4 ML SYRINGE. SQ SCH ×2 (08:33→20:27)
[2016-08-14] MEDS: TIGECYCLINE 50 MG in IV NORMAL SALINE 50ML 50 ML IV SCH ×2 (08:35→20:27)
[2016-08-14] MEDS: ONDANSETRON ODT 4 MG TAB.RAPDIS PO PRN (09:37)
[2016-08-14] MEDS: MORPHINE SULFATE 4 MG/ML DISP.SYRIN. IV PRN ×4 (10:20→20:26)
[2016-08-14 10:55] VITALS: BP 184/67
--- NOTE | 2016-08-14 12:35 | PDOC ---
PROGRESS NOTES Subjective Subjective c/c - f/u of Sigmoid mural thickening due to diverticulitis and Mesenteric lymphadenopathy Objective Objective Vital Signs Date Time Temp Pulse Resp B/P Pulse Ox O2 Delivery O2 Flow Rate FiO2 08/14/16 10:55 97.5 73 19 184/67 92 Room Air 97.5 08/14/16 08:29 2.0 Intake and Output 08/14/16 07:00 Intake Total 400 ml Balance 400 ml Intake Oral 400 ml # Voids 10 # Bowel Movements 3 Physical Exam General: Alert, Oriented X3 Neuro: Normal speech Psych/Mental Status: Mental status NL Assessment Assessment Problems Medical Problems: (1) Abdominal pain Status: Acute 1. Sigmoid mural thickening due to diverticulitis. s/p Colonoscopy 08/12/16: internal hemorrhoids, active diverticulitis sigmoid colon with purulent drainage , extent splenic flexure secondary to poor prep.. No evidence of malignancy. Appreciate ID and GI eval. 2. Mesenteric lymphadenopathy is though to be reactive to diverticulitis. Please call if needed. Comment Review of Relevant I have reviewed the following items marcio (where applicable) has been applied. Labs Laboratory Tests Test 08/14/16 03:55 White Blood Count 9.3x10^3/uL (4.0-11.0) Red Blood Count 3.87x10^6/uL (3.50-5.40) Hemoglobin 11.5g/dL (12.0-15.5) Hematocrit 35.2% (36.0-47.0) Mean Corpuscular Volume 91fL (79-100) Mean Corpuscular Hemoglobin 30pg (25-35) Mean Corpuscular Hemoglobin Concent 33g/dL (31-37) Red Cell Distribution Width 13.9% (11.5-14.5) Platelet Count 457x10^3/uL (140-400) Neutrophils (%) (Auto) 57% (31-73) Lymphocytes (%) (Auto) 28% (24-48) Monocytes (%) (Auto) 11% (0-9) Eosinophils (%) (Auto) 3% (0-3) Basophils (%) (Auto) 1% (0-3) Neutrophils # (Auto) 5.3x10^3uL (1.8-7.7) Lymphocytes # (Auto) 2.6x10^3/uL (1.0-4.8) Monocytes # (Auto) 1.0x10^3/uL (0.0-1.1) Eosinophils # (Auto) 0.3x10^3/uL (0.0-0.7) Basophils # (Auto) 0.1x10^3/uL (0.0-0.2) Sodium Level 138mmol/L (136-145) Potassium Level 5.2mmol/L (3.5-5.1) Chloride Level 104mmol/L (98-107) Carbon Dioxide Level 30mmol/L (21-32) Anion Gap 4 (6-14) Blood Urea Nitrogen 15mg/dL (7-20) Creatinine 0.9mg/dL (0.6-1.0) Estimated GFR (Cockcroft-Gault) 62.6 BUN/Creatinine Ratio 17 (6-20) Glucose Level 90mg/dL (70-99) Calcium Level 8.5mg/dL (8.5-10.1) Total Bilirubin 0.3mg/dL (0.2-1.0) Aspartate Amino Transf (AST/SGOT) 20U/L (15-37) Alanine Aminotransferase (ALT/SGPT) 8U/L (14-59) Alkaline Phosphatase 47U/L (46-116) Total Protein 6.7g/dL (6.4-8.2) Albumin 1.8g/dL (3.4-5.0) Albumin/Globulin Ratio 0.4 (1.0-1.7) Laboratory Tests Test 08/14/16 03:55 White Blood Count 9.3x10^3/uL (4.0-11.0) Red Blood Count 3.87x10^6/uL (3.50-5.40) Hemoglobin 11.5g/dL (12.0-15.5) Hematocrit 35.2% (36.0-47.0) Mean Corpuscular Volume 91fL (79-100) Mean Corpuscular Hemoglobin 30pg (25-35) Mean Corpuscular Hemoglobin Concent 33g/dL (31-37) Red Cell Distribution Width 13.9% (11.5-14.5) Platelet Count 457x10^3/uL (140-400) Neutrophils (%) (Auto) 57% (31-73) Lymphocytes (%) (Auto) 28% (24-48) Monocytes (%) (Auto) 11% (0-9) Eosinophils (%) (Auto) 3% (0-3) Basophils (%) (Auto) 1% (0-3) Neutrophils # (Auto) 5.3x10^3uL (1.8-7.7) Lymphocytes # (Auto) 2.6x10^3/uL (1.0-4.8) Monocytes # (Auto) 1.0x10^3/uL (0.0-1.1) Eosinophils # (Auto) 0.3x10^3/uL (0.0-0.7) Basophils # (Auto) 0.1x10^3/uL (0.0-0.2) Sodium Level 138mmol/L (136-145) Potassium Level 5.2mmol/L (3.5-5.1) Chloride Level 104mmol/L (98-107) Carbon Dioxide Level 30mmol/L (21-32) Anion Gap 4 (6-14) Blood Urea Nitrogen 15mg/dL (7-20) Creatinine 0.9mg/dL (0.6-1.0) Estimated GFR (Cockcroft-Gault) 62.6 BUN/Creatinine Ratio 17 (6-20) Glucose Level 90mg/dL (70-99) Calcium Level 8.5mg/dL (8.5-10.1) Total Bilirubin 0.3mg/dL (0.2-1.0) Aspartate Amino Transf (AST/SGOT) 20U/L (15-37) Alanine Aminotransferase (ALT/SGPT) 8U/L (14-59) Alkaline Phosphatase 47U/L (46-116) Total Protein 6.7g/dL (6.4-8.2) Albumin 1.8g/dL (3.4-5.0) Albumin/Globulin Ratio 0.4 (1.0-1.7) Microbiology 08/06/16 Urine Culture - Final, Complete 08/06/16 Urine Culture Result 1 (RICARDO) - Final, Complete Medications Current Medications Sodium Chloride (Iv Sodium Chloride 0.9% 1000ml Bag) 1,000 ml @ 1,000 mls/hr 1X ONCE IV Last administered on 08/06/16t 13:50; Start 08/06/16 at 13:15; Stop 08/06/16 at 14:14; Status DC Morphine Sulfate 4 mg 1X ONCE IV Last administered on 08/06/16 13:49; Start 08/06/16 at 13:15; Stop 08/06/16 at 13:16; Status DC Ondansetron HCl (Zofran) 4 mg 1X ONCE IV Last administered on 08/06/16 13:49 ; Start 08/06/16 at 13:15; Stop 08/06/16 at 13:16; Status DC Iohexol (Omnipaque 300 Mg/ml) 75 ml 1X ONCE IV Last administered on 08/06/16 13:56; Start 08/06/16 at 13:45; Stop 08/06/16 at 13:46; Status DC Info (Do NOT chart on this entry -- for MONITORING) 1 each PRN DAILY PRN MC SEE COMMENTS; Start 08/06/16 at 13:45; Stop 08/08/16 at 13:44; Status DC Ondansetron HCl (Zofran) 4 mg PRN Q8HRS PRN IV NAUSEA/VOMITING Last administered on 08/07/16 08:56; Start 08/06/16 at 15:15; Stop 08/07/16 at 15:14 ; Status DC Fentanyl Citrate 50 mcg 50 mcg PRN Q2HR PRN IV PAIN Last administered on 14:24; Start 08/06/16 at 15:15; Stop 08/07/16 at 15:14; Status DC Sodium Chloride (Iv Sodium Chloride 0.9% 1000ml Bag) 1,000 ml @ 100 mls/hr Q10H IV Last administered on 08/07/16 06:17; Start 08/06/16 at 15:09; Stop at 15:08; Status DC Acetaminophen (Tylenol) 650 mg PRN Q4HRS PRN PO FEVER; Start 08/06/16 at 15:15 ; Stop 08/07/16 at 15:14; Status DC Morphine Sulfate 4 mg 1X ONCE IV ; Start 08/06/16 at 17:30; Stop 08/06/16 at 17 :31; Status DC Morphine Sulfate 4 mg 4 mg PRN Q4HRS PRN IV PAIN Last administered on 09:43; Start 08/06/16 at 17:30; Stop 08/09/16 at 13:01; Status DC Levofloxacin/ Dextrose 100 ml @ 100 mls/hr Q24H IV Last administered on 17:19; Start 08/06/16 at 18:00; Stop 08/08/16 at 07:32; Status DC Metronidazole (FLAGYL 500Mmg PREMIX) 100 ml @ 100 mls/hr Q12HR IV Last administered on 08/08/16 08:47; Start 08/06/16 at 21:00; Stop 08/08/16 at 17:48 ; Status DC Bismuth Subsalicylate (Pepto-Bismol) 524 mg QID PO Last administered on 08:30; Start 08/06/16 at 21:00 Al Hydroxide/Mg Hydroxide (Mylanta Plus Xs) 30 ml PRN Q2HR PRN PO HEARTBURN / GAS Last administered on 08/09/16 13:37; Start 08/07/16 at 12:45 Ondansetron HCl (Zofran Odt) 4 mg PRN Q6HRS PRN PO NAUSEA/VOMITING Last administered on 08/14/16 09:37; Start 08/07/16 at 19:45 Acetaminophen (Tylenol) 325 mg PRN Q6HRS PRN PO MILD PAIN / TEMP Last administered on 08/08/16 01:42; Start 08/07/16 at 20:45; Stop 08/14/16 at 06:20 ; Status DC Acetaminophen (Tylenol) 650 mg PRN Q6HRS PRN PO MILD PAIN / TEMP Last administered on 08/07/16 20:45; Start 08/07/16 at 20:45; Stop 08/14/16 at 06:20 ; Status DC Diphenhydramine HCl (Benadryl) 25 mg PRN QHS PRN PO INSOMNIA Last administered on 08/07/16 21:57; Start 08/07/16 at 22:00 Vancomycin HCl 250 mg 250 mg [id number] PO Last administered on 08/14/16 08:30; Start 08/08/16 at 09:00 Amino Acids/ Electrolytes (Clinimix E 2.75%-5% Solution) 2,000 ml @ 80 mls/hr Q24H IV Last administered on 08/09/16 09:42; Start 08/08/16 at 08:00; Stop at 08:53; Status DC Metronidazole (Flagyl) 250 mg Q8HRS PO Last administered on 08/13/16 06:01; Start 08/08/16 at 22:00; Stop 08/13/16 at 11:17; Status DC Lactobacillus Acidophilus (Bacid, Maria Esther-Bid) 1 tab TIDWMEALS PO Last administered on 08/14/16 08:29; Start 08/08/16 at 18:00 Acetaminophen/ Hydrocodone Bitart (Lortab 5/325) 1 tab PRN Q4HRS PRN PO MODERATE - SEVERE PAIN Last administered on 08/14/16 08:29; Start 08/08/16 at 17:45 Saccharomyces Boulardii (Florastor) 250 mg DAILY PO Last administered on 08:28; Start 08/10/16 at 09:00 Morphine Sulfate 4 mg 4 mg PRN Q2HRS PRN IV PAIN Last administered on 10:20; Start 08/09/16 at 13:00 Amino Acids/ Electrolytes/ Dextrose (Clinimix E 4.25%-5% Solution) 1,000 ml @ 80 mls/hr [id number] IV Last administered on 08/11/16 08:55; Start 08/10/16 at 09 :00; Stop 08/11/16 at 17:51; Status DC Enoxaparin Sodium (Lovenox 40mg Syringe) 40 mg Q12H SQ Last administered on 08:54; Start 08/11/16 at 09:00; Stop 08/11/16 at 17:26; Status DC Iohexol (Omnipaque 240 Mg/ml) 50 ml 1X ONCE PO ; Start 08/11/16 at 14:00; Stop 08/11/16 at 14:01; Status DC Info (Do NOT chart on this entry -- for MONITORING) 1 each PRN DAILY PRN MC SEE COMMENTS; Start 08/11/16 at 13:45; Stop 08/13/16 at 13:44; Status DC Polyethylene Glycol (miraLAX Powder BULK BOTTLE) 238 gm 1X ONCE PO Last administered on 08/11/16 21:15; Start 08/11/16 at 20:00; Stop 08/11/16 at 20:01 ; Status DC Sodium Biphosphate/ Sodium Phosphate 133 ml 133 ml 1X ONCE IA Last administered on 08/12/16 15:52; Start 08/12/16 at 15:45; Stop 08/12/16 at 15:46 ; Status DC Lactated Ringer's (Iv Lactated Ringers) 1,000 ml @ 75 mls/hr [id number] IV Last administered on 08/13/16 23:44; Start 08/12/16 at 16:00 Meperidine HCl (Demerol) 25 mg STK-MED ONCE .ROUTE ; Start 08/12/16 at 16:14; Stop 08/12/16 at 16:15; Status DC Midazolam HCl (Versed) 5 mg STK-MED ONCE .ROUTE ; Start 08/12/16 at 16:14; Stop 08/12/16 at 16:15; Status DC Diphenhydramine HCl (Benadryl) 50 mg STK-MED ONCE .ROUTE ; Start 08/12/16 at 16: 14; Stop 08/12/16 at 16:15; Status DC Fentanyl Citrate (Fentanyl 2ml Vial) 100 mcg STK-MED ONCE .ROUTE ; Start at 16:19; Stop 08/12/16 at 16:20; Status DC Diphenhydramine HCl (Benadryl) 50 mg STK-MED ONCE IV Last administered on 16:25; Start 08/12/16 at 16:25; Stop 08/12/16 at 16:49; Status DC Midazolam HCl (Versed) 5 mg STK-MED ONCE IV Last administered on 08/12/16 16: 25; Start 08/12/16 at 16:25; Stop 08/12/16 at 16:49; Status DC Fentanyl Citrate (Fentanyl 2ml Vial) 100 mcg STK-MED ONCE IV Last administered on 08/12/16 16:25; Start 08/12/16 at 16:25; Stop 08/12/16 at 16:49; Status DC Fentanyl Citrate (Fentanyl 2ml Vial) 100 mcg STK-MED ONCE IV Last administered on 08/12/16 16:30; Start 08/12/16 at 16:30; Stop 08/12/16 at 16:49; Status DC Midazolam HCl (Versed) 5 mg STK-MED ONCE IV Last administered on 08/12/16 16: 30; Start 08/12/16 at 16:30; Stop 08/12/16 at 16:49; Status DC Midazolam HCl 5 mg 5 mg STK-MED ONCE IV Last administered on 08/12/16 16:32; Start 08/12/16 at 16:32; Stop 08/12/16 at 16:49; Status DC Tigecycline 50 mg/ Sodium Chloride 50 ml @ 100 mls/hr Q12HR IV Last administered on 08/14/16 08:35; Start 08/13/16 at 21:00 Tigecycline/ Sodium Chloride (Tygacil/Iv Sodium Chloride 0.9% 100ml) 100 ml @ 200 mls/hr 1X ONCE IV Last administered on 08/13/16 12:07; Start 08/13/16 at 11:15; Stop 08/13/16 at 11:44; Status DC Enoxaparin Sodium (Lovenox 40mg Syringe) 40 mg Q24H SQ Last administered on 18:01; Start 08/13/16 at 16:00; Stop 08/13/16 at 18:29; Status DC Enoxaparin Sodium (Lovenox 40mg Syringe) 40 mg BID SQ Last administered on 08/14 08:33; Start 08/14/16 at 09:00 Acetaminophen (Tylenol) 325 mg PRN Q6HRS PRN PO MILD PAIN / TEMP; Start at 06:20 Acetaminophen (Tylenol) 650 mg PRN Q6HRS PRN PO MILD PAIN / TEMP; Start at 06:30 Active Scripts Active Hydrocodone-Apap 5-325 (Hydrocodone Bit/Acetaminophen) 1 Each Tablet 1 Tab PO PRN Q6HRS PRN Reported Lisinopril 20 Mg Tablet 1 Tab PO DAILY Oxybutynin Chloride 5 Mg Tablet 15 Mg PO DAILY [place] 10-325 Tablet (Acetaminophen/Hydrocodone Bitart) 1 Each Tablet 1-2 Tab PO Q4-6HRS Oxycodone Hcl 30 Mg Tablet 1 Tab PO BID Vitals/I & O Vital Sign - Last 24 Hours 08/13/16 08/13/16 08/13/1608/13/17 15:00 18:01 20:00 20:38 Temp 97.7 100.2 97.7 100.2 Pulse 77 76 Resp 18 16 B/P 137/63 118/61 Pulse Ox 91 90 O2 Delivery Room Air Room Air Room Air Room Air 08/13/16 08/14/16 08/14/16 08/14/16 23:13 03:54 07:30 08:29 Temp 97.9 97.5 97.5 97.9 97.5 97.5 Pulse 72 60 65 Resp 16 16 20 B/P 128/ 155/68 170/67 Pulse Ox 91 95 96 O2 Delivery Room Air Room Air Room Air Room Air O2 Flow Rate 2.0 08/14/16 08/14/16 08/14/16 09:38 10:20 10:55 Temp 97.5 97.5 Pulse 73 Resp 19 B/P 184/67 Pulse Ox 92 O2 Delivery Room Air Room Air Room Air Intake and Output 08/13/16 08/13/16 08/14/16 15:00 23:00 07:00 Intake Total 400 ml Balance 400 ml JAZZY PAZ MD Aug 14, 2016 12:35
--- NOTE | 2016-08-14 13:05 | PDOC ---
PROGRESS NOTES Subjective Subjective She is unable to eat lunch due to bloating and diarrhea, WBC down Objective Objective Vital Signs Date Time Temp Pulse Resp B/P Pulse Ox O2 Delivery O2 Flow Rate FiO2 08/14/16 12:56 Room Air 08/14/16 10:55 97.5 73 19 184/67 92 97.5 08/14/16 08:29 2.0 Intake and Output 08/14/16 07:00 Intake Total 400 ml Balance 400 ml Intake Oral 400 ml # Voids 10 # Bowel Movements 3 Physical Exam Abdomen: Other (bloated but bowel sounds active) Extremities: No clubbing, No cyanosis General: Alert, Cooperative HEENT: Atraumatic Lungs: Clear to auscultation Neuro: Normal speech Psych/Mental Status: Mood NL Skin: No breakdown Assessment Assessment Problems Medical Problems: (1) Abdominal pain - acute diverticulitis with C.diff colitis and severe protein malnutrition Status: Acute Plan Plan of Care IV Tigacil, unable to use procalamine due to hyperK+, po vanco and probiotics Comment Review of Relevant I have reviewed the following items marcio (where applicable) has been applied. Labs Laboratory Tests Test 08/14/16 03:55 White Blood Count 9.3x10^3/uL (4.0-11.0) Red Blood Count 3.87x10^6/uL (3.50-5.40) Hemoglobin 11.5g/dL (12.0-15.5) Hematocrit 35.2% (36.0-47.0) Mean Corpuscular Volume 91fL (79-100) Mean Corpuscular Hemoglobin 30pg (25-35) Mean Corpuscular Hemoglobin Concent 33g/dL (31-37) Red Cell Distribution Width 13.9% (11.5-14.5) Platelet Count 457x10^3/uL (140-400) Neutrophils (%) (Auto) 57% (31-73) Lymphocytes (%) (Auto) 28% (24-48) Monocytes (%) (Auto) 11% (0-9) Eosinophils (%) (Auto) 3% (0-3) Basophils (%) (Auto) 1% (0-3) Neutrophils # (Auto) 5.3x10^3uL (1.8-7.7) Lymphocytes # (Auto) 2.6x10^3/uL (1.0-4.8) Monocytes # (Auto) 1.0x10^3/uL (0.0-1.1) Eosinophils # (Auto) 0.3x10^3/uL (0.0-0.7) Basophils # (Auto) 0.1x10^3/uL (0.0-0.2) Sodium Level 138mmol/L (136-145) Potassium Level 5.2mmol/L (3.5-5.1) Chloride Level 104mmol/L (98-107) Carbon Dioxide Level 30mmol/L (21-32) Anion Gap 4 (6-14) Blood Urea Nitrogen 15mg/dL (7-20) Creatinine 0.9mg/dL (0.6-1.0) Estimated GFR (Cockcroft-Gault) 62.6 BUN/Creatinine Ratio 17 (6-20) Glucose Level 90mg/dL (70-99) Calcium Level 8.5mg/dL (8.5-10.1) Total Bilirubin 0.3mg/dL (0.2-1.0) Aspartate Amino Transf (AST/SGOT) 20U/L (15-37) Alanine Aminotransferase (ALT/SGPT) 8U/L (14-59) Alkaline Phosphatase 47U/L (46-116) Total Protein 6.7g/dL (6.4-8.2) Albumin 1.8g/dL (3.4-5.0) Albumin/Globulin Ratio 0.4 (1.0-1.7) Laboratory Tests Test 08/14/16 03:55 White Blood Count 9.3x10^3/uL (4.0-11.0) Red Blood Count 3.87x10^6/uL (3.50-5.40) Hemoglobin 11.5g/dL (12.0-15.5) Hematocrit 35.2% (36.0-47.0) Mean Corpuscular Volume 91fL (79-100) Mean Corpuscular Hemoglobin 30pg (25-35) Mean Corpuscular Hemoglobin Concent 33g/dL (31-37) Red Cell Distribution Width 13.9% (11.5-14.5) Platelet Count 457x10^3/uL (140-400) Neutrophils (%) (Auto) 57% (31-73) Lymphocytes (%) (Auto) 28% (24-48) Monocytes (%) (Auto) 11% (0-9) Eosinophils (%) (Auto) 3% (0-3) Basophils (%) (Auto) 1% (0-3) Neutrophils # (Auto) 5.3x10^3uL (1.8-7.7) Lymphocytes # (Auto) 2.6x10^3/uL (1.0-4.8) Monocytes # (Auto) 1.0x10^3/uL (0.0-1.1) Eosinophils # (Auto) 0.3x10^3/uL (0.0-0.7) Basophils # (Auto) 0.1x10^3/uL (0.0-0.2) Sodium Level 138mmol/L (136-145) Potassium Level 5.2mmol/L (3.5-5.1) Chloride Level 104mmol/L (98-107) Carbon Dioxide Level 30mmol/L (21-32) Anion Gap 4 (6-14) Blood Urea Nitrogen 15mg/dL (7-20) Creatinine 0.9mg/dL (0.6-1.0) Estimated GFR (Cockcroft-Gault) 62.6 BUN/Creatinine Ratio 17 (6-20) Glucose Level 90mg/dL (70-99) Calcium Level 8.5mg/dL (8.5-10.1) Total Bilirubin 0.3mg/dL (0.2-1.0) Aspartate Amino Transf (AST/SGOT) 20U/L (15-37) Alanine Aminotransferase (ALT/SGPT) 8U/L (14-59) Alkaline Phosphatase 47U/L (46-116) Total Protein 6.7g/dL (6.4-8.2) Albumin 1.8g/dL (3.4-5.0) Albumin/Globulin Ratio 0.4 (1.0-1.7) Microbiology 08/06/16 Urine Culture - Final, Complete 08/06/16 Urine Culture Result 1 (RICARDO) - Final, Complete Medications Current Medications Sodium Chloride (Iv Sodium Chloride 0.9% 1000ml Bag) 1,000 ml @ 1,000 mls/hr 1X ONCE IV Last administered on 08/06/16t 13:50; Start 08/06/16 at 13:15; Stop 08/06/16 at 14:14; Status DC Morphine Sulfate 4 mg 1X ONCE IV Last administered on 08/06/16 13:49; Start 08/06/16 at 13:15; Stop 08/06/16 at 13:16; Status DC Ondansetron HCl (Zofran) 4 mg 1X ONCE IV Last administered on 08/06/16 13:49 ; Start 08/06/16 at 13:15; Stop 08/06/16 at 13:16; Status DC Iohexol (Omnipaque 300 Mg/ml) 75 ml 1X ONCE IV Last administered on 08/06/16 13:56; Start 08/06/16 at 13:45; Stop 08/06/16 at 13:46; Status DC Info (Do NOT chart on this entry -- for MONITORING) 1 each PRN DAILY PRN MC SEE COMMENTS; Start 08/06/16 at 13:45; Stop 08/08/16 at 13:44; Status DC Ondansetron HCl (Zofran) 4 mg PRN Q8HRS PRN IV NAUSEA/VOMITING Last administered on 08/07/16 08:56; Start 08/06/16 at 15:15; Stop 08/07/16 at 15:14 ; Status DC Fentanyl Citrate 50 mcg 50 mcg PRN Q2HR PRN IV PAIN Last administered on 14:24; Start 08/06/16 at 15:15; Stop 08/07/16 at 15:14; Status DC Sodium Chloride (Iv Sodium Chloride 0.9% 1000ml Bag) 1,000 ml @ 100 mls/hr Q10H IV Last administered on 08/07/16 06:17; Start 08/06/16 at 15:09; Stop at 15:08; Status DC Acetaminophen (Tylenol) 650 mg PRN Q4HRS PRN PO FEVER; Start 08/06/16 at 15:15 ; Stop 08/07/16 at 15:14; Status DC Morphine Sulfate 4 mg 1X ONCE IV ; Start 08/06/16 at 17:30; Stop 08/06/16 at 17 :31; Status DC Morphine Sulfate 4 mg 4 mg PRN Q4HRS PRN IV PAIN Last administered on 09:43; Start 08/06/16 at 17:30; Stop 08/09/16 at 13:01; Status DC Levofloxacin/ Dextrose 100 ml @ 100 mls/hr Q24H IV Last administered on 17:19; Start 08/06/16 at 18:00; Stop 08/08/16 at 07:32; Status DC Metronidazole (FLAGYL 500Mmg PREMIX) 100 ml @ 100 mls/hr Q12HR IV Last administered on 08/08/16 08:47; Start 08/06/16 at 21:00; Stop 08/08/16 at 17:48 ; Status DC Bismuth Subsalicylate (Pepto-Bismol) 524 mg QID PO Last administered on 12:50; Start 08/06/16 at 21:00 Al Hydroxide/Mg Hydroxide (Mylanta Plus Xs) 30 ml PRN Q2HR PRN PO HEARTBURN / GAS Last administered on 08/09/16 13:37; Start 08/07/16 at 12:45 Ondansetron HCl (Zofran Odt) 4 mg PRN Q6HRS PRN PO NAUSEA/VOMITING Last administered on 08/14/16 09:37; Start 08/07/16 at 19:45 Acetaminophen (Tylenol) 325 mg PRN Q6HRS PRN PO MILD PAIN / TEMP Last administered on 08/08/16 01:42; Start 08/07/16 at 20:45; Stop 08/14/16 at 06:20 ; Status DC Acetaminophen (Tylenol) 650 mg PRN Q6HRS PRN PO MILD PAIN / TEMP Last administered on 08/07/16 20:45; Start 08/07/16 at 20:45; Stop 08/14/16 at 06:20 ; Status DC Diphenhydramine HCl (Benadryl) 25 mg PRN QHS PRN PO INSOMNIA Last administered on 08/07/16 21:57; Start 08/07/16 at 22:00 Vancomycin HCl 250 mg 250 mg [id number] PO Last administered on 08/14/16 12:50; Start 08/08/16 at 09:00 Amino Acids/ Electrolytes (Clinimix E 2.75%-5% Solution) 2,000 ml @ 80 mls/hr Q24H IV Last administered on 08/09/16 09:42; Start 08/08/16 at 08:00; Stop at 08:53; Status DC Metronidazole (Flagyl) 250 mg Q8HRS PO Last administered on 08/13/16 06:01; Start 08/08/16 at 22:00; Stop 08/13/16 at 11:17; Status DC Lactobacillus Acidophilus (Bacid, Maria Esther-Bid) 1 tab TIDWMEALS PO Last administered on 08/14/16 12:50; Start 08/08/16 at 18:00 Acetaminophen/ Hydrocodone Bitart (Lortab 5/325) 1 tab PRN Q4HRS PRN PO MODERATE - SEVERE PAIN Last administered on 08/14/16 08:29; Start 08/08/16 at 17:45 Saccharomyces Boulardii (Florastor) 250 mg DAILY PO Last administered on 08:28; Start 08/10/16 at 09:00 Morphine Sulfate 4 mg 4 mg PRN Q2HRS PRN IV PAIN Last administered on 12:56; Start 08/09/16 at 13:00 Amino Acids/ Electrolytes/ Dextrose (Clinimix E 4.25%-5% Solution) 1,000 ml @ 80 mls/hr [id number] IV Last administered on 08/11/16 08:55; Start 08/10/16 at 09 :00; Stop 08/11/16 at 17:51; Status DC Enoxaparin Sodium (Lovenox 40mg Syringe) 40 mg Q12H SQ Last administered on 08:54; Start 08/11/16 at 09:00; Stop 08/11/16 at 17:26; Status DC Iohexol (Omnipaque 240 Mg/ml) 50 ml 1X ONCE PO ; Start 08/11/16 at 14:00; Stop 08/11/16 at 14:01; Status DC Info (Do NOT chart on this entry -- for MONITORING) 1 each PRN DAILY PRN MC SEE COMMENTS; Start 08/11/16 at 13:45; Stop 08/13/16 at 13:44; Status DC Polyethylene Glycol (miraLAX Powder BULK BOTTLE) 238 gm 1X ONCE PO Last administered on 08/11/16 21:15; Start 08/11/16 at 20:00; Stop 08/11/16 at 20:01 ; Status DC Sodium Biphosphate/ Sodium Phosphate 133 ml 133 ml 1X ONCE OK Last administered on 08/12/16 15:52; Start 08/12/16 at 15:45; Stop 08/12/16 at 15:46 ; Status DC Lactated Ringer's (Iv Lactated Ringers) 1,000 ml @ 75 mls/hr [id number] IV Last administered on 08/13/16 23:44; Start 08/12/16 at 16:00 Meperidine HCl (Demerol) 25 mg STK-MED ONCE .ROUTE ; Start 08/12/16 at 16:14; Stop 08/12/16 at 16:15; Status DC Midazolam HCl (Versed) 5 mg STK-MED ONCE .ROUTE ; Start 08/12/16 at 16:14; Stop 08/12/16 at 16:15; Status DC Diphenhydramine HCl (Benadryl) 50 mg STK-MED ONCE .ROUTE ; Start 08/12/16 at 16: 14; Stop 08/12/16 at 16:15; Status DC Fentanyl Citrate (Fentanyl 2ml Vial) 100 mcg STK-MED ONCE .ROUTE ; Start at 16:19; Stop 08/12/16 at 16:20; Status DC Diphenhydramine HCl (Benadryl) 50 mg STK-MED ONCE IV Last administered on 16:25; Start 08/12/16 at 16:25; Stop 08/12/16 at 16:49; Status DC Midazolam HCl (Versed) 5 mg STK-MED ONCE IV Last administered on 08/12/16 16: 25; Start 08/12/16 at 16:25; Stop 08/12/16 at 16:49; Status DC Fentanyl Citrate (Fentanyl 2ml Vial) 100 mcg STK-MED ONCE IV Last administered on 08/12/16 16:25; Start 08/12/16 at 16:25; Stop 08/12/16 at 16:49; Status DC Fentanyl Citrate (Fentanyl 2ml Vial) 100 mcg STK-MED ONCE IV Last administered on 08/12/16 16:30; Start 08/12/16 at 16:30; Stop 08/12/16 at 16:49; Status DC Midazolam HCl (Versed) 5 mg STK-MED ONCE IV Last administered on 08/12/16 16: 30; Start 08/12/16 at 16:30; Stop 08/12/16 at 16:49; Status DC Midazolam HCl 5 mg 5 mg STK-MED ONCE IV Last administered on 08/12/16 16:32; Start 08/12/16 at 16:32; Stop 08/12/16 at 16:49; Status DC Tigecycline 50 mg/ Sodium Chloride 50 ml @ 100 mls/hr Q12HR IV Last administered on 08/14/16 08:35; Start 08/13/16 at 21:00 Tigecycline/ Sodium Chloride (Tygacil/Iv Sodium Chloride 0.9% 100ml) 100 ml @ 200 mls/hr 1X ONCE IV Last administered on 08/13/16 12:07; Start 08/13/16 at 11:15; Stop 08/13/16 at 11:44; Status DC Enoxaparin Sodium (Lovenox 40mg Syringe) 40 mg Q24H SQ Last administered on 18:01; Start 08/13/16 at 16:00; Stop 08/13/16 at 18:29; Status DC Enoxaparin Sodium (Lovenox 40mg Syringe) 40 mg BID SQ Last administered on 08/14 08:33; Start 08/14/16 at 09:00 Acetaminophen (Tylenol) 325 mg PRN Q6HRS PRN PO MILD PAIN / TEMP; Start at 06:20 Acetaminophen (Tylenol) 650 mg PRN Q6HRS PRN PO MILD PAIN / TEMP; Start at 06:30 Active Scripts Active Hydrocodone-Apap 5-325 (Hydrocodone Bit/Acetaminophen) 1 Each Tablet 1 Tab PO PRN Q6HRS PRN Reported Lisinopril 20 Mg Tablet 1 Tab PO DAILY Oxybutynin Chloride 5 Mg Tablet 15 Mg PO DAILY [facility] 10-325 Tablet (Acetaminophen/Hydrocodone Bitart) 1 Each Tablet 1-2 Tab PO Q4-6HRS Oxycodone Hcl 30 Mg Tablet 1 Tab PO BID Vitals/I & O Vital Sign - Last 24 Hours 08/13/16 08/13/16 08/13/1617 15:00 18:01 20:00 20:38 Temp 97.7 100.2 97.7 100.2 Pulse 77 76 Resp 18 16 B/P 137/63 118/61 Pulse Ox 91 90 O2 Delivery Room Air Room Air Room Air Room Air 08/13/16 08/14/16 08/14/16 08/14/16 23:13 03:54 07:30 08:29 Temp 97.9 97.5 97.5 97.9 97.5 97.5 Pulse 72 60 65 Resp 16 16 20 B/P 128/ 155/68 170/67 Pulse Ox 91 95 96 O2 Delivery Room Air Room Air Room Air Room Air O2 Flow Rate 2.0 08/14/16 08/14/16 08/14/16 08/14/16 09:38 10:20 10:55 12:56 Temp 97.5 97.5 Pulse 73 Resp 19 B/P 184/67 Pulse Ox 92 O2 Delivery Room Air Room Air Room Air Room Air Intake and Output 08/13/16 08/13/16 08/14/16 15:00 23:00 07:00 Intake Total 400 ml Balance 400 ml YI HEATON MD Aug 14, 2016 13:05
--- NOTE | 2016-08-14 14:17 | PDOC ---
Subjective: Subjective: Abd pain the same. Tolerating clears. Tells me not stooling. Objective: Objective: WBC WNL. 3 stools charted. Vital Signs: Vital Signs Date Time Temp Pulse Resp B/P Pulse Ox O2 Delivery O2 Flow Rate FiO2 08/14/16 12:56 Room Air 08/14/16 10:55 97.5 73 19 184/67 92 97.5 08/14/16 08:29 2.0 Labs: Laboratory Tests Test 08/14/16 03:55 White Blood Count 9.3x10^3/uL Red Blood Count 3.87x10^6/uL Hemoglobin 11.5g/dL Hematocrit 35.2% Mean Corpuscular Volume 91fL Mean Corpuscular Hemoglobin 30pg Mean Corpuscular Hemoglobin Concent 33g/dL Red Cell Distribution Width 13.9% Platelet Count 457x10^3/uL Neutrophils (%) (Auto) 57% Lymphocytes (%) (Auto) 28% Monocytes (%) (Auto) 11% Eosinophils (%) (Auto) 3% Basophils (%) (Auto) 1% Neutrophils # (Auto) 5.3x10^3uL Lymphocytes # (Auto) 2.6x10^3/uL Monocytes # (Auto) 1.0x10^3/uL Eosinophils # (Auto) 0.3x10^3/uL Basophils # (Auto) 0.1x10^3/uL Sodium Level 138mmol/L Potassium Level 5.2mmol/L Chloride Level 104mmol/L Carbon Dioxide Level 30mmol/L Anion Gap 4 Blood Urea Nitrogen 15mg/dL Creatinine 0.9mg/dL Estimated GFR (Cockcroft-Gault) 62.6 BUN/Creatinine Ratio 17 Glucose Level 90mg/dL Calcium Level 8.5mg/dL Total Bilirubin 0.3mg/dL Aspartate Amino Transf (AST/SGOT) 20U/L Alanine Aminotransferase (ALT/SGPT) 8U/L Alkaline Phosphatase 47U/L Total Protein 6.7g/dL Albumin 1.8g/dL Albumin/Globulin Ratio 0.4 PE: GEN: NAD LUNGS: CTAB HEART: RRR ABD: NABS, S/ND/NT NEURO/PSYCH: A & O 3 A/P: Sigmoid diverticulitis, C Diff -ID and surg followingWBC improved -on clears -- WBC improved w/ ongoing pain. Will follow. GIFTY PARKINSON Aug 14, 2016 14:17
[2016-08-14 15:08] VITALS: BP 151/75
[2016-08-14] MEDS: IV RINGERS,LACTATED 1000ML 1,000 ML IV SCH ×2 (16:12→20:28)
[2016-08-14 19:00] VITALS: BP 123/67
[2016-08-14 23:09] VITALS: BP 117/75
[2016-08-15] MEDS: MORPHINE SULFATE 4 MG/ML DISP.SYRIN. IV PRN ×5 (02:03→15:30)
[2016-08-15 03:30] VITALS: BP 124/75
[2016-08-15] MEDS: HYDROCODONE/APAP 5/325MG TABLET. PO PRN ×4 (03:30→18:45)
[2016-08-15 07:00] VITALS: BP 127/59
[2016-08-15] MEDS: BISMUTH SUBSALICYLATE 262 MG/15 ML ORAL.SUSP 236ML BOTTLE. PO SCH ×4 (08:56→21:05)
[2016-08-15] MEDS: TIGECYCLINE 50 MG in IV NORMAL SALINE 50ML 50 ML IV SCH (08:57)
[2016-08-15] MEDS: SACCHAROMYCES BOULARDII 250 MG CAPSULE. PO SCH (08:58)
[2016-08-15] MEDS: LACTOBACILLUS ACIDOPH & BULGAR 1 TABLET. PO SCH ×3 (08:58→17:44)
[2016-08-15] MEDS: ENOXAPARIN 40 MG/0.4 ML SYRINGE. SQ SCH ×2 (08:59→21:10)
[2016-08-15] MEDS: VANCOMYCIN 250 MG/5 ML ORAL SOLUTION. PO SCH ×4 (09:14→21:05)
[2016-08-15 11:15] VITALS: BP 128/67
--- NOTE | 2016-08-15 11:24 | PDOC ---
Subjective: Subjective: Pain unchanged. Describes "pellets" for stools. Objective: Objective: Per RN - 02/24 pain. Vital Signs: Vital Signs Date Time Temp Pulse Resp B/P Pulse Ox O2 Delivery O2 Flow Rate FiO2 08/15/16 10:58 Room Air 08/15/16 07:00 97.7 65 18 127/59 92 97.7 08/14/16 08:29 2.0 PE: GEN: NAD, up to chair, [place] LUNGS: clear anteriorly HEART: S1S2 ABD: BS+, same BLQ/suprapubic tenderness NEURO/PSYCH: A & O 3 A/P: Sigmoid diverticulitis, C Diff -abd pain ongoing -ID and surg following -on clears, WBC improved yesterday -- Pain w/ diverticulitis persists. High-risk for surgery. GIFTY PARKINSON Aug 15, 2016 11:24
[2016-08-15] MEDS ORDERED: POLYETHYLENE GLYCOL 3350 17 GM PACKET. PO PRN (11:30)
--- NOTE | 2016-08-15 11:50 | PDOC ---
Infectious Disease Note Subjective Subjective pt feeling ok, still abd pain + stool now hard ROS ROS no n/v/d/ Vital Sign Vital Signs Vital Signs Date Time Temp Pulse Resp B/P Pulse Ox O2 Delivery O2 Flow Rate FiO2 08/15/16 11:15 97.9 70 18 128/67 92 Room Air 97.9 08/14/16 08:29 2.0 Physical Exam PHYSICAL EXAM GENERAL: NAD, Alert HEENT: PERRL, OC/OP NECK: Supple, no JVD, no LN LUNGS: Clear HEART: S1S2, no gallop, no murmur ABD: Soft, NT, no organomegaly, no rebound EXT: No edema, no cyanosis,, rt [employer]: Alert, oriented x 3, no focal neurologic deficit SKIN: No rash IV: ok Objective Assessment Diverticulitis C diff Leukocytosis Abd pain Obesity Plan Plan of Care cont po vanc tygacil change to doxy ok to d/c supportive care GRIS MARTIN MD Aug 15, 2016 11:50
[2016-08-15] MEDS: DOXYCYCLINE HYCLATE 100 MG TABLET PO SCH ×2 (12:14→21:05)
--- NOTE | 2016-08-15 12:52 | PDOC ---
SURGICAL PROGRESS NOTE Subjective Doing ok some soreness wants to eat. tolerating liquids Vital Signs Vital Signs Date Time Temp Pulse Resp B/P Pulse Ox O2 Delivery O2 Flow Rate FiO2 08/15/16 12:17 Room Air 08/15/16 11:15 97.9 70 18 128/67 92 97.9 08/14/16 08:29 2.0 I&O Intake and Output 08/15/16 07:00 Intake Total 1680 ml Balance 1680 ml Intake Oral 1680 ml # Voids 6 # Bowel Movements 3 PATIENT HAS A RIOS: No General: Alert, Oriented X3, Cooperative, mild distress Abdomen: Normal bowel sounds, Soft, Other (TTP LLQ) Extremities: No edema Skin: No significant lesion Neuro: Normal speech Psych/Mental Status: Mental status NL Labs Laboratory Tests Test 08/14/16 03:55 White Blood Count 9.3x10^3/uL (4.0-11.0) Red Blood Count 3.87x10^6/uL (3.50-5.40) Hemoglobin 11.5g/dL (12.0-15.5) Hematocrit 35.2% (36.0-47.0) Mean Corpuscular Volume 91fL (79-100) Mean Corpuscular Hemoglobin 30pg (25-35) Mean Corpuscular Hemoglobin Concent 33g/dL (31-37) Red Cell Distribution Width 13.9% (11.5-14.5) Platelet Count 457x10^3/uL (140-400) Neutrophils (%) (Auto) 57% (31-73) Lymphocytes (%) (Auto) 28% (24-48) Monocytes (%) (Auto) 11% (0-9) Eosinophils (%) (Auto) 3% (0-3) Basophils (%) (Auto) 1% (0-3) Neutrophils # (Auto) 5.3x10^3uL (1.8-7.7) Lymphocytes # (Auto) 2.6x10^3/uL (1.0-4.8) Monocytes # (Auto) 1.0x10^3/uL (0.0-1.1) Eosinophils # (Auto) 0.3x10^3/uL (0.0-0.7) Basophils # (Auto) 0.1x10^3/uL (0.0-0.2) Sodium Level 138mmol/L (136-145) Potassium Level 5.2mmol/L (3.5-5.1) Chloride Level 104mmol/L (98-107) Carbon Dioxide Level 30mmol/L (21-32) Anion Gap 4 (6-14) Blood Urea Nitrogen 15mg/dL (7-20) Creatinine 0.9mg/dL (0.6-1.0) Estimated GFR (Cockcroft-Gault) 62.6 BUN/Creatinine Ratio 17 (6-20) Glucose Level 90mg/dL (70-99) Calcium Level 8.5mg/dL (8.5-10.1) Total Bilirubin 0.3mg/dL (0.2-1.0) Aspartate Amino Transf (AST/SGOT) 20U/L (15-37) Alanine Aminotransferase (ALT/SGPT) 8U/L (14-59) Alkaline Phosphatase 47U/L (46-116) Total Protein 6.7g/dL (6.4-8.2) Albumin 1.8g/dL (3.4-5.0) Albumin/Globulin Ratio 0.4 (1.0-1.7) Problem List Problems Medical Problems: (1) Abdominal pain Status: Acute Assessment/Plan Diverticulitis, improved wbc and afebrile Continue abx Will monitor, Stay on liquids Problems: ABHISHEK SNYDER MD Aug 15, 2016 12:52
[2016-08-15 14:55] VITALS: BP 107/63
--- NOTE | 2016-08-15 17:56 | PDOC ---
PROGRESS NOTES Subjective Subjective She has been switched to oral antibiotics by ID but she is still requiring Morphine for pain control (hx of low pain tolerance), still of liquid diet but now having solid stool and no longer bloated Objective Objective Vital Signs Date Time Temp Pulse Resp B/P Pulse Ox O2 Delivery O2 Flow Rate FiO2 08/15/16 17:46 Room Air 08/15/16 14:55 97.9 64 18 107/63 90 97.9 08/14/16 08:29 2.0 Intake and Output 08/15/16 07:00 Intake Total 1680 ml Balance 1680 ml Intake Oral 1680 ml # Voids 6 # Bowel Movements 3 Physical Exam Abdomen: Soft Heart: Regular rate Extremities: No clubbing, No cyanosis General: Alert, Cooperative HEENT: Atraumatic Lungs: Clear to auscultation Neck: Supple Neuro: Normal speech Skin: No breakdown Assessment Assessment Problems Medical Problems: (1) Abdominal pain - acute diverticulitis with C.diff colitis and severe protein malnutrition - improving. Now Off IV Tygacil but still needs to advance diet and be off morphine prior to discharge which should be 1-2 days Comment Review of Relevant I have reviewed the following items marcio (where applicable) has been applied. Labs Laboratory Tests Test 08/14/16 03:55 White Blood Count 9.3x10^3/uL (4.0-11.0) Red Blood Count 3.87x10^6/uL (3.50-5.40) Hemoglobin 11.5g/dL (12.0-15.5) Hematocrit 35.2% (36.0-47.0) Mean Corpuscular Volume 91fL (79-100) Mean Corpuscular Hemoglobin 30pg (25-35) Mean Corpuscular Hemoglobin Concent 33g/dL (31-37) Red Cell Distribution Width 13.9% (11.5-14.5) Platelet Count 457x10^3/uL (140-400) Neutrophils (%) (Auto) 57% (31-73) Lymphocytes (%) (Auto) 28% (24-48) Monocytes (%) (Auto) 11% (0-9) Eosinophils (%) (Auto) 3% (0-3) Basophils (%) (Auto) 1% (0-3) Neutrophils # (Auto) 5.3x10^3uL (1.8-7.7) Lymphocytes # (Auto) 2.6x10^3/uL (1.0-4.8) Monocytes # (Auto) 1.0x10^3/uL (0.0-1.1) Eosinophils # (Auto) 0.3x10^3/uL (0.0-0.7) Basophils # (Auto) 0.1x10^3/uL (0.0-0.2) Sodium Level 138mmol/L (136-145) Potassium Level 5.2mmol/L (3.5-5.1) Chloride Level 104mmol/L (98-107) Carbon Dioxide Level 30mmol/L (21-32) Anion Gap 4 (6-14) Blood Urea Nitrogen 15mg/dL (7-20) Creatinine 0.9mg/dL (0.6-1.0) Estimated GFR (Cockcroft-Gault) 62.6 BUN/Creatinine Ratio 17 (6-20) Glucose Level 90mg/dL (70-99) Calcium Level 8.5mg/dL (8.5-10.1) Total Bilirubin 0.3mg/dL (0.2-1.0) Aspartate Amino Transf (AST/SGOT) 20U/L (15-37) Alanine Aminotransferase (ALT/SGPT) 8U/L (14-59) Alkaline Phosphatase 47U/L (46-116) Total Protein 6.7g/dL (6.4-8.2) Albumin 1.8g/dL (3.4-5.0) Albumin/Globulin Ratio 0.4 (1.0-1.7) Microbiology 08/06/16 Urine Culture - Final, Complete 08/06/16 Urine Culture Result 1 (RICARDO) - Final, Complete Medications Current Medications Sodium Chloride (Iv Sodium Chloride 0.9% 1000ml Bag) 1,000 ml @ 1,000 mls/hr 1X ONCE IV Last administered on 08/06/16t 13:50; Start 08/06/16 at 13:15; Stop 08/06/16 at 14:14; Status DC Morphine Sulfate 4 mg 1X ONCE IV Last administered on 08/06/16 13:49; Start 08/06/16 at 13:15; Stop 08/06/16 at 13:16; Status DC Ondansetron HCl (Zofran) 4 mg 1X ONCE IV Last administered on 08/06/16 13:49 ; Start 08/06/16 at 13:15; Stop 08/06/16 at 13:16; Status DC Iohexol (Omnipaque 300 Mg/ml) 75 ml 1X ONCE IV Last administered on 08/06/16 13:56; Start 08/06/16 at 13:45; Stop 08/06/16 at 13:46; Status DC Info (Do NOT chart on this entry -- for MONITORING) 1 each PRN DAILY PRN MC SEE COMMENTS; Start 08/06/16 at 13:45; Stop 08/08/16 at 13:44; Status DC Ondansetron HCl (Zofran) 4 mg PRN Q8HRS PRN IV NAUSEA/VOMITING Last administered on 08/07/16 08:56; Start 08/06/16 at 15:15; Stop 08/07/16 at 15:14 ; Status DC Fentanyl Citrate 50 mcg 50 mcg PRN Q2HR PRN IV PAIN Last administered on 14:24; Start 08/06/16 at 15:15; Stop 08/07/16 at 15:14; Status DC Sodium Chloride (Iv Sodium Chloride 0.9% 1000ml Bag) 1,000 ml @ 100 mls/hr Q10H IV Last administered on 08/07/16 06:17; Start 08/06/16 at 15:09; Stop at 15:08; Status DC Acetaminophen (Tylenol) 650 mg PRN Q4HRS PRN PO FEVER; Start 08/06/16 at 15:15 ; Stop 08/07/16 at 15:14; Status DC Morphine Sulfate 4 mg 1X ONCE IV ; Start 08/06/16 at 17:30; Stop 08/06/16 at 17 :31; Status DC Morphine Sulfate 4 mg 4 mg PRN Q4HRS PRN IV PAIN Last administered on 09:43; Start 08/06/16 at 17:30; Stop 08/09/16 at 13:01; Status DC Levofloxacin/ Dextrose 100 ml @ 100 mls/hr Q24H IV Last administered on 17:19; Start 08/06/16 at 18:00; Stop 08/08/16 at 07:32; Status DC Metronidazole (FLAGYL 500Mmg PREMIX) 100 ml @ 100 mls/hr Q12HR IV Last administered on 08/08/16 08:47; Start 08/06/16 at 21:00; Stop 08/08/16 at 17:48 ; Status DC Bismuth Subsalicylate (Pepto-Bismol) 524 mg QID PO Last administered on 17:44; Start 08/06/16 at 21:00 Al Hydroxide/Mg Hydroxide (Mylanta Plus Xs) 30 ml PRN Q2HR PRN PO HEARTBURN / GAS Last administered on 08/09/16 13:37; Start 08/07/16 at 12:45 Ondansetron HCl (Zofran Odt) 4 mg PRN Q6HRS PRN PO NAUSEA/VOMITING Last administered on 08/14/16 09:37; Start 08/07/16 at 19:45 Acetaminophen (Tylenol) 325 mg PRN Q6HRS PRN PO MILD PAIN / TEMP Last administered on 08/08/16 01:42; Start 08/07/16 at 20:45; Stop 08/14/16 at 06:20 ; Status DC Acetaminophen (Tylenol) 650 mg PRN Q6HRS PRN PO MILD PAIN / TEMP Last administered on 08/07/16 20:45; Start 08/07/16 at 20:45; Stop 08/14/16 at 06:20 ; Status DC Diphenhydramine HCl (Benadryl) 25 mg PRN QHS PRN PO INSOMNIA Last administered on 08/07/16 21:57; Start 08/07/16 at 22:00 Vancomycin HCl 250 mg 250 mg [id number] PO Last administered on 08/15/16 17:45; Start 08/08/16 at 09:00 Amino Acids/ Electrolytes (Clinimix E 2.75%-5% Solution) 2,000 ml @ 80 mls/hr Q24H IV Last administered on 08/09/16 09:42; Start 08/08/16 at 08:00; Stop at 08:53; Status DC Metronidazole (Flagyl) 250 mg Q8HRS PO Last administered on 08/13/16 06:01; Start 08/08/16 at 22:00; Stop 08/13/16 at 11:17; Status DC Lactobacillus Acidophilus (Bacid, Maria Esther-Bid) 1 tab TIDWMEALS PO Last administered on 08/15/16 17:44; Start 08/08/16 at 18:00 Acetaminophen/ Hydrocodone Bitart (Lortab 5/325) 1 tab PRN Q4HRS PRN PO MODERATE - SEVERE PAIN Last administered on 08/15/16 14:22; Start 08/08/16 at 17:45 Saccharomyces Boulardii (Florastor) 250 mg DAILY PO Last administered on 08:58; Start 08/10/16 at 09:00 Morphine Sulfate 4 mg 4 mg PRN Q2HRS PRN IV PAIN Last administered on 15:30; Start 08/09/16 at 13:00 Amino Acids/ Electrolytes/ Dextrose (Clinimix E 4.25%-5% Solution) 1,000 ml @ 80 mls/hr [id number] IV Last administered on 08/11/16 08:55; Start 08/10/16 at 09 :00; Stop 08/11/16 at 17:51; Status DC Enoxaparin Sodium (Lovenox 40mg Syringe) 40 mg Q12H SQ Last administered on 08:54; Start 08/11/16 at 09:00; Stop 08/11/16 at 17:26; Status DC Iohexol (Omnipaque 240 Mg/ml) 50 ml 1X ONCE PO ; Start 08/11/16 at 14:00; Stop 08/11/16 at 14:01; Status DC Info (Do NOT chart on this entry -- for MONITORING) 1 each PRN DAILY PRN MC SEE COMMENTS; Start 08/11/16 at 13:45; Stop 08/13/16 at 13:44; Status DC Polyethylene Glycol (miraLAX Powder BULK BOTTLE) 238 gm 1X ONCE PO Last administered on 08/11/16 21:15; Start 08/11/16 at 20:00; Stop 08/11/16 at 20:01 ; Status DC Sodium Biphosphate/ Sodium Phosphate 133 ml 133 ml 1X ONCE DE Last administered on 08/12/16 15:52; Start 08/12/16 at 15:45; Stop 08/12/16 at 15:46 ; Status DC Lactated Ringer's (Iv Lactated Ringers) 1,000 ml @ 75 mls/hr [id number] IV Last administered on 08/14/16 16:12; Start 08/12/16 at 16:00 Meperidine HCl (Demerol) 25 mg STK-MED ONCE .ROUTE ; Start 08/12/16 at 16:14; Stop 08/12/16 at 16:15; Status DC Midazolam HCl (Versed) 5 mg STK-MED ONCE .ROUTE ; Start 08/12/16 at 16:14; Stop 08/12/16 at 16:15; Status DC Diphenhydramine HCl (Benadryl) 50 mg STK-MED ONCE .ROUTE ; Start 08/12/16 at 16: 14; Stop 08/12/16 at 16:15; Status DC Fentanyl Citrate (Fentanyl 2ml Vial) 100 mcg STK-MED ONCE .ROUTE ; Start at 16:19; Stop 08/12/16 at 16:20; Status DC Diphenhydramine HCl (Benadryl) 50 mg STK-MED ONCE IV Last administered on 16:25; Start 08/12/16 at 16:25; Stop 08/12/16 at 16:49; Status DC Midazolam HCl (Versed) 5 mg STK-MED ONCE IV Last administered on 08/12/16 16: 25; Start 08/12/16 at 16:25; Stop 08/12/16 at 16:49; Status DC Fentanyl Citrate (Fentanyl 2ml Vial) 100 mcg STK-MED ONCE IV Last administered on 08/12/16 16:25; Start 08/12/16 at 16:25; Stop 08/12/16 at 16:49; Status DC Fentanyl Citrate (Fentanyl 2ml Vial) 100 mcg STK-MED ONCE IV Last administered on 08/12/16 16:30; Start 08/12/16 at 16:30; Stop 08/12/16 at 16:49; Status DC Midazolam HCl (Versed) 5 mg STK-MED ONCE IV Last administered on 08/12/16 16: 30; Start 08/12/16 at 16:30; Stop 08/12/16 at 16:49; Status DC Midazolam HCl 5 mg 5 mg STK-MED ONCE IV Last administered on 08/12/16 16:32; Start 08/12/16 at 16:32; Stop 08/12/16 at 16:49; Status DC Tigecycline 50 mg/ Sodium Chloride 50 ml @ 100 mls/hr Q12HR IV Last administered on 08/15/16 08:57; Start 08/13/16 at 21:00; Stop 08/15/16 at 11:51 ; Status DC Tigecycline/ Sodium Chloride (Tygacil/Iv Sodium Chloride 0.9% 100ml) 100 ml @ 200 mls/hr 1X ONCE IV Last administered on 08/13/16 12:07; Start 08/13/16 at 11:15; Stop 08/13/16 at 11:44; Status DC Enoxaparin Sodium (Lovenox 40mg Syringe) 40 mg Q24H SQ Last administered on 18:01; Start 08/13/16 at 16:00; Stop 08/13/16 at 18:29; Status DC Enoxaparin Sodium (Lovenox 40mg Syringe) 40 mg BID SQ Last administered on 08/15 08:59; Start 08/14/16 at 09:00 Acetaminophen (Tylenol) 325 mg PRN Q6HRS PRN PO MILD PAIN / TEMP; Start at 06:20 Acetaminophen (Tylenol) 650 mg PRN Q6HRS PRN PO MILD PAIN / TEMP; Start at 06:30 Polyethylene Glycol (miraLAX PACKET) 17 gm PRN DAILY PRN PO CONSTIPATION; Start 08/15/16 at 11:30 Doxycycline Hyclate (Vibra-Tab) 100 mg BID PO Last administered on 08/15/16 12 :14; Start 08/15/16 at 12:00 Active Scripts Active Hydrocodone-Apap 5-325 (Hydrocodone Bit/Acetaminophen) 1 Each Tablet 1 Tab PO PRN Q6HRS PRN Reported Lisinopril 20 Mg Tablet 1 Tab PO DAILY Oxybutynin Chloride 5 Mg Tablet 15 Mg PO DAILY [place] 10-325 Tablet (Acetaminophen/Hydrocodone Bitart) 1 Each Tablet 1-2 Tab PO Q4-6HRS Oxycodone Hcl 30 Mg Tablet 1 Tab PO BID Vitals/I & O Vital Sign - Last 24 Hours 08/14/16 08/14/16 08/14/16 08/14/16 17:54 19:00 20:00 20:26 Temp 98.3 98.3 Pulse 71 Resp 19 B/P 123/67 Pulse Ox 93 94 94 O2 Delivery Room Air Room Air Room Air 08/14/16 08/15/16 08/15/16 08/15/16 23:09 02:03 03:30 06:43 Temp 98.8 98.1 98.8 98.1 Pulse 74 67 Resp 18 16 B/P 117/75 124/75 Pulse Ox 93 93 91 91 O2 Delivery Room Air Room Air Room Air Room Air 08/15/16 08/15/16 08/15/16 08/15/16 07:00 08:00 08:58 10:04 Temp 97.7 97.7 Pulse 65 Resp 18 B/P 127/59 Pulse Ox 92 O2 Delivery Room Air Room Air Room Air Room Air 08/15/16 08/15/16 08/15/16 08/15/16 11:15 12:17 14:22 14:55 Temp 97.9 97.9 97.9 97.9 Pulse 70 64 Resp 18 18 B/P 128/67 107/63 Pulse Ox 92 90 O2 Delivery Room Air Room Air Room Air Room Air 08/15/16 08/15/16 08/15/16 15:30 17:45 17:46 O2 Delivery Room Air Room Air Room Air Intake and Output 08/14/16 08/14/16 08/15/16 15:00 23:00 07:00 Intake Total 600 ml 240 ml 840 ml Balance 600 ml 240 ml 840 ml YI HEATON MD Aug 15, 2016 17:56
[2016-08-15] MEDS: IV RINGERS,LACTATED 1000ML 1,000 ML IV SCH (18:28)
[2016-08-15 19:00] VITALS: BP 117/67
[2016-08-15 23:00] VITALS: BP 121/70
[2016-08-15] MEDS: MAG HYDROX/ALUMINUM HYD/SIMETH 30 ML ORAL.SUSP PO PRN (23:13)
[2016-08-16 07:00] VITALS: BP 122/63
[2016-08-16] MEDS: ENOXAPARIN 40 MG/0.4 ML SYRINGE. SQ SCH ×2 (07:59→20:11)
[2016-08-16] MEDS: BISMUTH SUBSALICYLATE 262 MG/15 ML ORAL.SUSP 236ML BOTTLE. PO SCH ×4 (07:59→20:14)
[2016-08-16] MEDS: DOXYCYCLINE HYCLATE 100 MG TABLET PO SCH ×2 (07:59→20:11)
[2016-08-16] MEDS: VANCOMYCIN 250 MG/5 ML ORAL SOLUTION. PO SCH ×4 (07:59→20:11)
[2016-08-16] MEDS: LACTOBACILLUS ACIDOPH & BULGAR 1 TABLET. PO SCH ×3 (07:59→17:18)
[2016-08-16] MEDS: SACCHAROMYCES BOULARDII 250 MG CAPSULE. PO SCH (07:59)
[2016-08-16] MEDS: HYDROCODONE/APAP 5/325MG TABLET. PO PRN ×3 (08:01→17:18)
--- NOTE | 2016-08-16 08:52 | PDOC ---
SURGICAL PROGRESS NOTE Subjective Doing ok, no nausea. Tolerating clears Vital Signs Vital Signs Date Time Temp Pulse Resp B/P Pulse Ox O2 Delivery O2 Flow Rate FiO2 08/16/16 08:01 16 Room Air 08/16/16 07:00 97.9 80 122/63 95 97.9 08/15/16 20:00 2.0 I&O Intake and Output 08/16/16 07:00 Intake Total 770 ml Balance 770 ml Intake Oral 770 ml # Voids 4 # Bowel Movements 1 PATIENT HAS A RIOS: No General: Alert, Oriented X3, Cooperative, No acute distress Abdomen: Normal bowel sounds, Soft, Other (mildly diffusely tender, improving) Problem List Problems Medical Problems: (1) Abdominal pain Status: Acute Assessment/Plan Coltitis on oral abx Adv diet as tolerated No surgical indications, will sign off at this time if need in the future please consult. Problems: ABHISHEK SNYDER MD Aug 16, 2016 08:52
[2016-08-16 11:15] VITALS: BP 136/71
--- NOTE | 2016-08-16 12:02 | PDOC ---
SUBJECTIVE Subjective Still with pain in the abdomen. Had episode of emesis after eating this morning. Denies any shortness of breath. No chest pain. OBJECTIVE Vital Signs Vital Signs Date Time Temp Pulse Resp B/P Pulse Ox O2 Delivery O2 Flow Rate FiO2 08/16/16 11:15 98.4 86 20 136/71 94 Room Air 98.4 08/16/16 09:30 18 Room Air 08/16/16 08:01 16 Room Air 08/16/16 08:00 Room Air 08/16/16 07:00 97.9 80 18 122/63 95 Room Air 97.9 08/15/16 23:00 98.2 79 18 121/70 93 Room Air 98.2 08/15/16 20:00 Room Air 2.0 08/15/16 19:46 90 2.0 08/15/16 19:00 99.0 73 18 117/67 91 Room Air 99.0 08/15/16 18:45 Room Air 08/15/16 17:45 Room Air 08/15/16 15:30 Room Air 08/15/16 14:55 97.9 64 18 107/63 90 Room Air 97.9 08/15/16 14:22 Room Air 08/15/16 12:17 Room Air I & O Intake and Output 08/16/16 07:00 Intake Total 770 ml Balance 770 ml Intake Oral 770 ml # Voids 4 # Bowel Movements 1 PHYSICAL EXAM Physical Exam General: No acute distress. Mental status: Alert. Very hard of hearing. Chest: Clear to auscultation anteriorly. Good air movement CV: Normal rate. Regular rhythm. No murmur. Abdomen: Normal bowel sounds. Soft, obese. Tenderness primarily in the left lower quadrant and lower abdomen. Extremities: No lower extremity edema. ASSESSMENT/PLAN Assessment/Plan 1. Abdominal pain due to C. difficile and diverticulitis: Continue antibiotics per infectious disease. Continue per GI. Medication for nausea. 2. C. difficile colitis: Continue oral vancomycin 3. Diverticulitis: Continue antibiotics per infectious disease Problems: JINA MARS MD Aug 16, 2016 12:01
[2016-08-16] MEDS ORDERED: ONDANSETRON ODT 4 MG TAB.RAPDIS. ONE (12:09)
[2016-08-16] MEDS: ONDANSETRON ODT 4 MG TAB.RAPDIS PO PRN (12:27)
[2016-08-16] MEDS ORDERED: ONDANSETRON ODT 4 MG TAB.RAPDIS. PO PRN (13:30)
[2016-08-16 15:00] VITALS: BP 121/67
[2016-08-16 19:00] VITALS: BP 111/63
[2016-08-16 23:00] VITALS: BP 123/71
[2016-08-17] MEDS: HYDROCODONE/APAP 5/325MG TABLET. PO PRN ×4 (00:42→20:24)
[2016-08-17 03:00] VITALS: BP 109/63
[2016-08-17 06:55] VITALS: BP 147/71
[2016-08-17] MEDS: VANCOMYCIN 250 MG/5 ML ORAL SOLUTION. PO SCH ×4 (08:27→20:23)
[2016-08-17] MEDS: BISMUTH SUBSALICYLATE 262 MG/15 ML ORAL.SUSP 236ML BOTTLE. PO SCH ×4 (08:27→20:24)
[2016-08-17] MEDS: LACTOBACILLUS ACIDOPH & BULGAR 1 TABLET. PO SCH ×3 (08:28→16:33)
[2016-08-17] MEDS: SACCHAROMYCES BOULARDII 250 MG CAPSULE. PO SCH (08:28)
[2016-08-17] MEDS: ENOXAPARIN 40 MG/0.4 ML SYRINGE. SQ SCH ×2 (08:28→20:25)
[2016-08-17] MEDS: DOXYCYCLINE HYCLATE 100 MG TABLET PO SCH ×2 (08:28→20:24)
[2016-08-17 11:00] VITALS: BP 156/82
[2016-08-17 15:00] VITALS: BP 157/84
--- NOTE | 2016-08-17 15:10 | PDOC ---
SUBJECTIVE Subjective Still with abdominal discomfort. No emesis. She is having bowel movements. She wants to try something more than just clear liquids. She denies any shortness of breath. OBJECTIVE Vital Signs Vital Signs Date Time Temp Pulse Resp B/P Pulse Ox O2 Delivery O2 Flow Rate FiO2 08/17/16 13:39 18 Room Air 08/17/16 11:00 98.3 85 19 156/82 94 Room Air 98.3 08/17/16 09:21 15 Room Air 08/17/16 08:29 16 Room Air 08/17/16 08:00 Room Air 08/17/16 06:55 97.4 68 17 147/71 96 Room Air 97.4 08/17/16 03:00 98.7 75 16 109/63 95 Room Air 98.7 08/17/16 00:42 Room Air 2.0 08/16/16 23:00 98.5 71 18 123/71 94 Room Air 98.5 08/16/16 20:00 Room Air 08/16/16 19:00 98.2 73 16 111/63 94 Room Air 98.2 08/16/16 17:18 16 Room Air I & O Intake and Output 08/17/16 07:00 Intake Total 840 ml Output Total 0 ml Balance 840 ml Intake Oral 840 ml Output Urine Total 0 ml # Voids 4 # Bowel Movements 2 PHYSICAL EXAM Physical Exam General: No acute distress. Mental status: Alert. Very hard of hearing. Chest: Clear to auscultation anteriorly. Good air movement CV: Normal rate. Regular rhythm. No murmur. Abdomen: Normal bowel sounds. Soft, obese. Minimal tenderness primarily in the lower quadrants. Extremities: No lower extremity edema on the left. 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 ASSESSMENT/PLAN Assessment/Plan 1. Abdominal pain due to C. difficile and diverticulitis: Continue oral antibiotics per infectious disease. Continue per GI. Medication for nausea as needed. Advance diet. 2. C. difficile colitis: Continue oral vancomycin 3. Diverticulitis: Continue oral antibiotics. 4. Disposition: Hopefully home once we can get her eating a regular diet. Problems: JINA MARS MD Aug 17, 2016 15:10
[2016-08-17 19:15] VITALS: BP 118/60
[2016-08-17 22:20] VITALS: BP 131/71
[2016-08-18] MEDS: HYDROCODONE/APAP 5/325MG TABLET. PO PRN ×4 (01:11→23:42)
[2016-08-18 03:15] VITALS: BP 107/58
[2016-08-18 04:45] LABS: BASO # 0.1 x10^3/uL (0.0-0.2); BASO % 1 % (0-3); EOS % 2 % (0-3); HEMOGLOBIN 10.7 g/dL (12.0-15.5); LYMPH # 2.8 x10^3/uL (1.0-4.8); LYMPH % 30 % (24-48); MEAN CORPUSCULAR HEMOGLOBIN 30 pg (25-35); MEAN CORPUSCULAR HGB CONC 32 g/dL (31-37); MEAN CORPUSCULAR VOLUME 92 fL (79-100); MONO % 12 % (0-9); NEUT % 55 % (31-73); PLATELET COUNT 348 x10^3/uL (140-400); RED CELL DISTRIBUTION WIDTH 14.5 % (11.5-14.5); WHITE BLOOD COUNT 9.1 x10^3/uL (4.0-11.0)
[2016-08-18 05:04] LABS: CALCIUM 8.4 mg/dL (8.5-10.1); CREATININE 0.8 mg/dL (0.6-1.0); GFR 71.8; POTASSIUM 4.2 mmol/L (3.5-5.1)
[2016-08-18 07:00] VITALS: BP 134/69
[2016-08-18] MEDS: VANCOMYCIN 250 MG/5 ML ORAL SOLUTION. PO SCH ×4 (08:02→20:38)
[2016-08-18] MEDS: BISMUTH SUBSALICYLATE 262 MG/15 ML ORAL.SUSP 236ML BOTTLE. PO SCH ×4 (08:02→20:38)
[2016-08-18] MEDS: SACCHAROMYCES BOULARDII 250 MG CAPSULE. PO SCH (08:03)
[2016-08-18] MEDS: LACTOBACILLUS ACIDOPH & BULGAR 1 TABLET. PO SCH ×3 (08:03→17:14)
[2016-08-18] MEDS: ENOXAPARIN 40 MG/0.4 ML SYRINGE. SQ SCH ×2 (08:03→20:40)
[2016-08-18] MEDS: DOXYCYCLINE HYCLATE 100 MG TABLET PO SCH ×2 (08:03→20:38)
--- NOTE | 2016-08-18 08:03 | PDOC ---
SUBJECTIVE Subjective Pt still having soft stools. Started soft diet last night and was able to tolerate it well. Still having abdominal pain. Discussed the potential of going home and she states that she thinks she can. Will make sure that pt can tolerate breakfast and lunch. OBJECTIVE Vital Signs Vital Signs Date Time Temp Pulse Resp B/P Pulse Ox O2 Delivery O2 Flow Rate FiO2 08/18/16 03:15 98.7 74 18 107/58 91 Room Air 98.7 08/18/16 03:04 Room Air 08/18/16 01:11 Room Air 08/17/16 22:20 99.3 75 18 131/71 92 Room Air 99.3 08/17/16 20:24 Room Air 08/17/16 20:00 Room Air 08/17/16 19:15 99.0 76 18 118/60 91 Room Air 99.0 08/17/16 15:13 14 08/17/16 15:00 98.4 77 19 157/84 95 Room Air 98.4 08/17/16 13:39 18 Room Air 08/17/16 11:00 98.3 85 19 156/82 94 Room Air 98.3 08/17/16 08:29 16 Room Air 08/17/16 08:00 Room Air I & O Intake and Output 08/18/16 06:59 Intake Total 1010 ml Balance 1010 ml Intake Oral 1010 ml # Voids 4 # Bowel Movements 4 PHYSICAL EXAM Physical Exam General: No acute distress. Mental status: Alert. Very hard of hearing. Chest: Clear to auscultation anteriorly. Good air movement CV: Normal rate. Regular rhythm. No murmur. Abdomen: Normal bowel sounds. Soft, obese. Minimal tenderness primarily in the lower quadrants. Extremities: No lower extremity edema on the left. 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 ASSESSMENT/PLAN Assessment/Plan Pt is a 66yo CF admitted with abdominal pain found to be 2/2 C dificile and diverticulitis 1. Abdominal pain due to C. difficile and diverticulitis: Continue oral antibiotics per infectious disease. GI following- s/p colonoscopy this admission because there was concern for possible malignancy. Colonoscopy showed diverticulitis. Pt was started on soft diet last night. If pt is able to tolerate breakfast and lunch, could potentially go home today. Leukocytosis has resolved. Electrolyte abnormalities have resolved 2. C. difficile colitis: Continue oral vancomycin 3. Diverticulitis: Continue oral antibiotics. 4. Anemia- mild, no active bleeding. Problems: COMMENT Lab Laboratory Tests Test 08/18/16 04:10 White Blood Count 9.1x10^3/uL (4.0-11.0) Red Blood Count 3.60x10^6/uL (3.50-5.40) Hemoglobin 10.7g/dL (12.0-15.5) Hematocrit 33.0% (36.0-47.0) Mean Corpuscular Volume 92fL (79-100) Mean Corpuscular Hemoglobin 30pg (25-35) Mean Corpuscular Hemoglobin Concent 32g/dL (31-37) Red Cell Distribution Width 14.5% (11.5-14.5) Platelet Count 348x10^3/uL (140-400) Neutrophils (%) (Auto) 55% (31-73) Lymphocytes (%) (Auto) 30% (24-48) Monocytes (%) (Auto) 12% (0-9) Eosinophils (%) (Auto) 2% (0-3) Basophils (%) (Auto) 1% (0-3) Neutrophils # (Auto) 5.0x10^3uL (1.8-7.7) Lymphocytes # (Auto) 2.8x10^3/uL (1.0-4.8) Monocytes # (Auto) 1.1x10^3/uL (0.0-1.1) Eosinophils # (Auto) 0.2x10^3/uL (0.0-0.7) Basophils # (Auto) 0.1x10^3/uL (0.0-0.2) Sodium Level 140mmol/L (136-145) Potassium Level 4.2mmol/L (3.5-5.1) Chloride Level 107mmol/L (98-107) Carbon Dioxide Level 30mmol/L (21-32) Anion Gap 3 (6-14) Blood Urea Nitrogen 7mg/dL (7-20) Creatinine 0.8mg/dL (0.6-1.0) Estimated GFR (Cockcroft-Gault) 71.8 Glucose Level 83mg/dL (70-99) Calcium Level 8.4mg/dL (8.5-10.1) CISCO YE MD Aug 18, 2016 08:03
[2016-08-18 11:00] VITALS: BP 125/67
--- NOTE | 2016-08-18 13:17 | CONS ---
DATE OF CONSULTATION: 08/12/2016 MEDICAL ONCOLOGY CONSULTATION REQUESTING PHYSICIAN: Dr. Fidel Cisse. REASON FOR CONSULTATION: Abnormal CT scan concerning for colon cancer. HISTORY OF PRESENT ILLNESS: The patient is a 66-year-old female, who was admitted to [facility] on 08/06/2016 with a 2-week history of abdominal pain, mostly localized in the lower part of her abdomen. She was evaluated by her primary care physician, Dr. Cisse and she was treated with Cipro for urinary tract infection. She also had labs that were positive for H. pylori and she was initiated on Prevpac. CAT scan was being planned, but she came to the Emergency Room prior to that was scheduled. She reported that her abdominal pain is constant. She also has a history of constipation and she had one episode of red blood in that toilet. She has also had nausea and vomiting and a history of low-grade fevers. She underwent further evaluation with a CT scan of the abdomen and pelvis on 08/06/2016 that revealed inflammation in the sigmoid colon versus underlying mass. A followup CAT scan was performed on 08/11/2016, which revealed sigmoid mural thickening suggestive of a neoplastic pattern as well as mild nearby mesenteric adenopathy. Her previous GI workup included an EGD on 02/14/[address] Connell that revealed gastritis, a colonoscopy on 02/14/[address] Connell that revealed sigmoid diverticulosis, and Barium enema on 02/19/2011 that revealed sigmoid diverticulosis. Her condition is also complicated by malnutrition and C. diff colitis. Colonoscopy is being planned for 08/12/2016. 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 She has chronic hearing loss. PAST SURGICAL HISTORY: Appendectomy, cholecystectomy, tonsillectomy, right AKA, and hernia repair. FAMILY HISTORY: Positive for hypertension, Alzheimer disease, and bone cancer. REVIEW OF SYSTEMS: A 12-point review of systems was performed. Pertinent positives are mentioned in the history of present illness. Rest of the system review is negative. PHYSICAL EXAMINATION: GENERAL APPEARANCE: The patient is a 66-year-old female, who is in no acute cardiorespiratory distress. VITAL SIGNS: Blood pressure 145/84, temperature 98.6. HEENT: Atraumatic, normocephalic. Eyes: No icterus. NECK: Supple. CHEST: Bilaterally symmetrical. No crepitations or rhonchi heard. HEART: S1, S2 normal. ABDOMEN: Soft. She has evidence of tenderness in the lower part of her abdomen. CENTRAL NERVOUS SYSTEM: No focal neurological deficits. LYMPHATICS: No lymphadenopathy. SKIN: No rashes. PSYCHOLOGIC: Mood and affect are appropriate. MUSCULOSKELETAL: No joint effusions. LABORATORY DATA: WBC 13.1, hemoglobin 10, and platelet count 414; hemoglobin was normal at the time of admission on 08/06/2016 at 12.5. Creatinine is 0.9, calcium 8.2, and albumin 1.8. IMPRESSION AND PLAN: 1. Sigmoid infiltration/lesions noted on CT scan on 08/11/2016, concerning for colon cancer. Other differential diagnoses including diverticulitis is less likely. Colonoscopy has been recommended. Appreciate GI consultation and appreciate plans for colonoscopy scheduled for 08/12/2016. There is also evidence of mesenteric lymphadenopathy, measuring 1.5 cm, which could be as a result of metastatic disease from the sigmoid versus inflammatory changes. Her condition is also complicated by Clostridium difficile colitis and malnutrition. I will proceed with colonoscopy, and if she does have malignancy, then surgery is her only curative option. The surgery may have to be delayed till the Clostridium difficile colitis resolves and her nutritional status improves. I will defer this decision to Surgery. I will continue to follow. 2. Anemia, appears to be acute. Her hemoglobin was normal at the time of admission. This is thought to be due to her underlying comorbidities. Continue to monitor. 3. Leukocytosis, reactive due to Clostridium difficile colitis. Monitor. 4. Abdominal pain. Continue management per Dr. Cisse. 5. Helicobacter pylori antibodies. She was treated with a Prevpac. JAZZY PAZ MD DR: [place]/amparo JOB#: [id number] / [id number] Fidel Barber MD MTDD
--- NOTE | 2016-08-18 13:36 | PDOC ---
G I PROGRESS NOTE Reason for Follow-up LLQ abd pain/diverticulitis Subjective Tolerating PO/less pain today Physical Exam Lungs decreased BS CV S1 S2 ABD +BS, soft, mild LLQ tenderness Review of Relevant I have reviewed the following items marcio (where applicable) has been applied. Labs Laboratory Tests Test 08/18/16 04:10 White Blood Count 9.1x10^3/uL (4.0-11.0) Red Blood Count 3.60x10^6/uL (3.50-5.40) Hemoglobin 10.7g/dL (12.0-15.5) Hematocrit 33.0% (36.0-47.0) Mean Corpuscular Volume 92fL (79-100) Mean Corpuscular Hemoglobin 30pg (25-35) Mean Corpuscular Hemoglobin Concent 32g/dL (31-37) Red Cell Distribution Width 14.5% (11.5-14.5) Platelet Count 348x10^3/uL (140-400) Neutrophils (%) (Auto) 55% (31-73) Lymphocytes (%) (Auto) 30% (24-48) Monocytes (%) (Auto) 12% (0-9) Eosinophils (%) (Auto) 2% (0-3) Basophils (%) (Auto) 1% (0-3) Neutrophils # (Auto) 5.0x10^3uL (1.8-7.7) Lymphocytes # (Auto) 2.8x10^3/uL (1.0-4.8) Monocytes # (Auto) 1.1x10^3/uL (0.0-1.1) Eosinophils # (Auto) 0.2x10^3/uL (0.0-0.7) Basophils # (Auto) 0.1x10^3/uL (0.0-0.2) Sodium Level 140mmol/L (136-145) Potassium Level 4.2mmol/L (3.5-5.1) Chloride Level 107mmol/L (98-107) Carbon Dioxide Level 30mmol/L (21-32) Anion Gap 3 (6-14) Blood Urea Nitrogen 7mg/dL (7-20) Creatinine 0.8mg/dL (0.6-1.0) Estimated GFR (Cockcroft-Gault) 71.8 Glucose Level 83mg/dL (70-99) Calcium Level 8.4mg/dL (8.5-10.1) Laboratory Tests Test 08/18/16 04:10 White Blood Count 9.1x10^3/uL (4.0-11.0) Red Blood Count 3.60x10^6/uL (3.50-5.40) Hemoglobin 10.7g/dL (12.0-15.5) Hematocrit 33.0% (36.0-47.0) Mean Corpuscular Volume 92fL (79-100) Mean Corpuscular Hemoglobin 30pg (25-35) Mean Corpuscular Hemoglobin Concent 32g/dL (31-37) Red Cell Distribution Width 14.5% (11.5-14.5) Platelet Count 348x10^3/uL (140-400) Neutrophils (%) (Auto) 55% (31-73) Lymphocytes (%) (Auto) 30% (24-48) Monocytes (%) (Auto) 12% (0-9) Eosinophils (%) (Auto) 2% (0-3) Basophils (%) (Auto) 1% (0-3) Neutrophils # (Auto) 5.0x10^3uL (1.8-7.7) Lymphocytes # (Auto) 2.8x10^3/uL (1.0-4.8) Monocytes # (Auto) 1.1x10^3/uL (0.0-1.1) Eosinophils # (Auto) 0.2x10^3/uL (0.0-0.7) Basophils # (Auto) 0.1x10^3/uL (0.0-0.2) Sodium Level 140mmol/L (136-145) Potassium Level 4.2mmol/L (3.5-5.1) Chloride Level 107mmol/L (98-107) Carbon Dioxide Level 30mmol/L (21-32) Anion Gap 3 (6-14) Blood Urea Nitrogen 7mg/dL (7-20) Creatinine 0.8mg/dL (0.6-1.0) Estimated GFR (Cockcroft-Gault) 71.8 Glucose Level 83mg/dL (70-99) Calcium Level 8.4mg/dL (8.5-10.1) Microbiology 08/06/16 Urine Culture - Final, Complete 08/06/16 Urine Culture Result 1 (RICARDO) - Final, Complete Medications Current Medications Sodium Chloride (Iv Sodium Chloride 0.9% 1000ml Bag) 1,000 ml @ 1,000 mls/hr 1X ONCE IV Last administered on 08/06/16 13:50; Start 08/06/16 at 13:15; Stop 08/06/16 at 14:14; Status DC Morphine Sulfate 4 mg 1X ONCE IV Last administered on 08/06/16 13:49; Start 08/06/16 at 13:15; Stop 08/06/16 at 13:16; Status DC Ondansetron HCl (Zofran) 4 mg 1X ONCE IV Last administered on 08/06/16 13:49 ; Start 08/06/16 at 13:15; Stop 08/06/16 at 13:16; Status DC Iohexol (Omnipaque 300 Mg/ml) 75 ml 1X ONCE IV Last administered on 08/06/16 13:56; Start 08/06/16 at 13:45; Stop 08/06/16 at 13:46; Status DC Info (Do NOT chart on this entry -- for MONITORING) 1 each PRN DAILY PRN MC SEE COMMENTS; Start 08/06/16 at 13:45; Stop 08/08/16 at 13:44; Status DC Ondansetron HCl (Zofran) 4 mg PRN Q8HRS PRN IV NAUSEA/VOMITING Last administered on 08/07/16 08:56; Start 08/06/16 at 15:15; Stop 08/07/16 at 15:14 ; Status DC Fentanyl Citrate 50 mcg 50 mcg PRN Q2HR PRN IV PAIN Last administered on 14:24; Start 08/06/16 at 15:15; Stop 08/07/16 at 15:14; Status DC Sodium Chloride (Iv Sodium Chloride 0.9% 1000ml Bag) 1,000 ml @ 100 mls/hr Q10H IV Last administered on 08/07/16 06:17; Start 08/06/16 at 15:09; Stop at 15:08; Status DC Acetaminophen (Tylenol) 650 mg PRN Q4HRS PRN PO FEVER; Start 08/06/16 at 15:15 ; Stop 08/07/16 at 15:14; Status DC Morphine Sulfate 4 mg 1X ONCE IV ; Start 08/06/16 at 17:30; Stop 08/06/16 at 17 :31; Status DC Morphine Sulfate 4 mg 4 mg PRN Q4HRS PRN IV PAIN Last administered on 09:43; Start 08/06/16 at 17:30; Stop 08/09/16 at 13:01; Status DC Levofloxacin/ Dextrose 100 ml @ 100 mls/hr Q24H IV Last administered on 17:19; Start 08/06/16 at 18:00; Stop 08/08/16 at 07:32; Status DC Metronidazole (FLAGYL 500Mmg PREMIX) 100 ml @ 100 mls/hr Q12HR IV Last administered on 08/08/16 08:47; Start 08/06/16 at 21:00; Stop 08/08/16 at 17:48 ; Status DC Bismuth Subsalicylate (Pepto-Bismol) 524 mg QID PO Last administered on 11:40; Start 08/06/16 at 21:00 Al Hydroxide/Mg Hydroxide (Mylanta Plus Xs) 30 ml PRN Q2HR PRN PO HEARTBURN / GAS Last administered on 08/15/16 23:13; Start 08/07/16 at 12:45 Ondansetron HCl (Zofran Odt) 4 mg PRN Q6HRS PRN PO NAUSEA/VOMITING Last administered on 08/16/16 12:27; Start 08/07/16 at 19:45; Stop 08/16/16 at 13:31; Status DC Acetaminophen (Tylenol) 325 mg PRN Q6HRS PRN PO MILD PAIN / TEMP Last administered on 08/08/16 01:42; Start 08/07/16 at 20:45; Stop 08/14/16 at 06:20 ; Status DC Acetaminophen (Tylenol) 650 mg PRN Q6HRS PRN PO MILD PAIN / TEMP Last administered on 08/07/16 20:45; Start 08/07/16 at 20:45; Stop 08/14/16 at 06:20 ; Status DC Diphenhydramine HCl (Benadryl) 25 mg PRN QHS PRN PO INSOMNIA Last administered on 08/07/16 21:57; Start 08/07/16 at 22:00 Vancomycin HCl 250 mg 250 mg [id number] PO Last administered on 08/18/16 11:40; Start 08/08/16 at 09:00 Amino Acids/ Electrolytes (Clinimix E 2.75%-5% Solution) 2,000 ml @ 80 mls/hr Q24H IV Last administered on 08/09/16 09:42; Start 08/08/16 at 08:00; Stop at 08:53; Status DC Metronidazole (Flagyl) 250 mg Q8HRS PO Last administered on 08/13/16 06:01; Start 08/08/16 at 22:00; Stop 08/13/16 at 11:17; Status DC Lactobacillus Acidophilus (Bacid, Maria Esther-Bid) 1 tab TIDWMEALS PO Last administered on 08/18/16 11:40; Start 08/08/16 at 18:00 Acetaminophen/ Hydrocodone Bitart (Lortab 5/325) 1 tab PRN Q4HRS PRN PO MODERATE - SEVERE PAIN Last administered on 08/18/16 08:04; Start 08/08/16 at 17 :45 Saccharomyces Boulardii (Florastor) 250 mg DAILY PO Last administered on 08:03; Start 08/10/16 at 09:00 Morphine Sulfate 4 mg 4 mg PRN Q2HRS PRN IV PAIN Last administered on 15:30; Start 08/09/16 at 13:00 Amino Acids/ Electrolytes/ Dextrose (Clinimix E 4.25%-5% Solution) 1,000 ml @ 80 mls/hr [id number] IV Last administered on 08/11/16 08:55; Start 08/10/16 at 09 :00; Stop 08/11/16 at 17:51; Status DC Enoxaparin Sodium (Lovenox 40mg Syringe) 40 mg Q12H SQ Last administered on 08:54; Start 08/11/16 at 09:00; Stop 08/11/16 at 17:26; Status DC Iohexol (Omnipaque 240 Mg/ml) 50 ml 1X ONCE PO ; Start 08/11/16 at 14:00; Stop 08/11/16 at 14:01; Status DC Info (Do NOT chart on this entry -- for MONITORING) 1 each PRN DAILY PRN MC SEE COMMENTS; Start 08/11/16 at 13:45; Stop 08/13/16 at 13:44; Status DC Polyethylene Glycol (miraLAX Powder BULK BOTTLE) 238 gm 1X ONCE PO Last administered on 08/11/16 21:15; Start 08/11/16 at 20:00; Stop 08/11/16 at 20:01 ; Status DC Sodium Biphosphate/ Sodium Phosphate 133 ml 133 ml 1X ONCE MS Last administered on 08/12/16 15:52; Start 08/12/16 at 15:45; Stop 08/12/16 at 15:46 ; Status DC Lactated Ringer's (Iv Lactated Ringers) 1,000 ml @ 75 mls/hr [id number] IV Last administered on 08/15/16 18:28; Start 08/12/16 at 16:00; Stop 08/15/16 at 18:38 ; Status DC Meperidine HCl (Demerol) 25 mg STK-MED ONCE .ROUTE ; Start 08/12/16 at 16:14; Stop 08/12/16 at 16:15; Status DC Midazolam HCl (Versed) 5 mg STK-MED ONCE .ROUTE ; Start 08/12/16 at 16:14; Stop 08/12/16 at 16:15; Status DC Diphenhydramine HCl (Benadryl) 50 mg STK-MED ONCE .ROUTE ; Start 08/12/16 at 16: 14; Stop 08/12/16 at 16:15; Status DC Fentanyl Citrate (Fentanyl 2ml Vial) 100 mcg STK-MED ONCE .ROUTE ; Start at 16:19; Stop 08/12/16 at 16:20; Status DC Diphenhydramine HCl (Benadryl) 50 mg STK-MED ONCE IV Last administered on 16:25; Start 08/12/16 at 16:25; Stop 08/12/16 at 16:49; Status DC Midazolam HCl (Versed) 5 mg STK-MED ONCE IV Last administered on 08/12/16 16: 25; Start 08/12/16 at 16:25; Stop 08/12/16 at 16:49; Status DC Fentanyl Citrate (Fentanyl 2ml Vial) 100 mcg STK-MED ONCE IV Last administered on 08/12/16 16:25; Start 08/12/16 at 16:25; Stop 08/12/16 at 16:49; Status DC Fentanyl Citrate (Fentanyl 2ml Vial) 100 mcg STK-MED ONCE IV Last administered on 08/12/16 16:30; Start 08/12/16 at 16:30; Stop 08/12/16 at 16:49; Status DC Midazolam HCl (Versed) 5 mg STK-MED ONCE IV Last administered on 08/12/16 16: 30; Start 08/12/16 at 16:30; Stop 08/12/16 at 16:49; Status DC Midazolam HCl 5 mg 5 mg STK-MED ONCE IV Last administered on 08/12/16 16:32; Start 08/12/16 at 16:32; Stop 08/12/16 at 16:49; Status DC Tigecycline 50 mg/ Sodium Chloride 50 ml @ 100 mls/hr Q12HR IV Last administered on 08/15/16 08:57; Start 08/13/16 at 21:00; Stop 08/15/16 at 11:51 ; Status DC Tigecycline/ Sodium Chloride (Tygacil/Iv Sodium Chloride 0.9% 100ml) 100 ml @ 200 mls/hr 1X ONCE IV Last administered on 08/13/16 12:07; Start 08/13/16 at 11:15; Stop 08/13/16 at 11:44; Status DC Enoxaparin Sodium (Lovenox 40mg Syringe) 40 mg Q24H SQ Last administered on 18:01; Start 08/13/16 at 16:00; Stop 08/13/16 at 18:29; Status DC Enoxaparin Sodium (Lovenox 40mg Syringe) 40 mg BID SQ Last administered on 08:03; Start 08/14/16 at 09:00 Acetaminophen (Tylenol) 325 mg PRN Q6HRS PRN PO MILD PAIN / TEMP; Start at 06:20 Acetaminophen (Tylenol) 650 mg PRN Q6HRS PRN PO MILD PAIN / TEMP; Start at 06:30 Polyethylene Glycol (miraLAX PACKET) 17 gm PRN DAILY PRN PO CONSTIPATION; Start 08/15/16 at 11:30 Doxycycline Hyclate (Vibra-Tab) 100 mg BID PO Last administered on 08/18/16t 08: 03; Start 08/15/16 at 12:00 Ondansetron HCl (Zofran Odt) 4 mg STK-MED ONCE .ROUTE ; Start 08/16/16 at 12:09; Stop 08/16/16 at 12:10; Status DC Ondansetron HCl (Zofran Odt) 4 mg PRN Q6HRS PRN PO NAUSEA/VOMITING; Start at 13:30 Active Scripts Active Hydrocodone-Apap 5-325 (Hydrocodone Bit/Acetaminophen) 1 Each Tablet 1 Tab PO PRN Q6HRS PRN Reported Lisinopril 20 Mg Tablet 1 Tab PO DAILY Oxybutynin Chloride 5 Mg Tablet 15 Mg PO DAILY [place] 10-325 Tablet (Acetaminophen/Hydrocodone Bitart) 1 Each Tablet 1-2 Tab PO Q4-6HRS Oxycodone Hcl 30 Mg Tablet 1 Tab PO BID Vitals/I & O Vital Sign - Last 24 Hours 08/17/16 08/17/16 08/17/16 08/17/16 13:39 15:00 19:15 20:00 Temp 98.4 99.0 98.4 99.0 Pulse 77 76 Resp 18 19 18 B/P 157/84 118/60 Pulse Ox 95 91 O2 Delivery Room Air Room Air Room Air Room Air 08/17/16 08/17/16 08/18/16 08/18/16 20:24 22:20 01:11 03:15 Temp 99.3 98.7 99.3 98.7 Pulse 75 74 Resp 18 18 B/P 131/71 107/58 Pulse Ox 92 91 O2 Delivery Room Air Room Air Room Air Room Air 08/18/16 08/18/16 08/18/16 08/18/16 07:00 08:00 08:04 09:43 Temp 98.5 98.5 Pulse 68 Resp 18 16 14 B/P 134/69 Pulse Ox 96 O2 Delivery Room Air Room Air Room Air Room Air 08/18/16 11:00 Temp 98.4 98.4 Pulse 72 Resp 18 B/P 125/67 Pulse Ox 92 O2 Delivery Room Air Intake and Output 08/17/16 08/17/16 08/18/16 15:00 23:00 07:00 Intake Total 750 ml 260 ml Balance 750 ml 260 ml Problem List Problems Medical Problems: (1) Abdominal pain Status: Acute Assessment LLQ abd pain- with diverticulitis, slowly improving, medical therapy preferred over surgical resection. disposition plans per primary JOSE MOORE MD Aug 18, 2016 13:36
[2016-08-18 15:00] VITALS: BP 112/69
[2016-08-18 19:56] VITALS: BP 121/67
[2016-08-18 23:00] VITALS: BP 124/73
[2016-08-19 03:00] VITALS: BP 123/76
[2016-08-19 07:00] VITALS: BP 133/75
[2016-08-19] MEDS ORDERED: Vancomycin Hcl PO (08:17)
[2016-08-19] MEDS ORDERED: ACID1TAB14 PO (08:17)
[2016-08-19] MEDS ORDERED: DOXY100T PO (08:17)
--- NOTE | 2016-08-19 08:37 | PDOC3 ---
Discharge Summary* Date of Admission: Aug 06, 2016 Date of Discharge: Aug 19, 2016 Admitting Diagnosis Problems Medical Problems: (1) Abdominal pain Status: Acute Final Diagnosis Problems Medical Problems: (1) Abdominal pain Status: Acute (2) C. difficile colitis Status: Acute (3) Diverticulitis Status: Acute CONSULTS GI, Infectious Diseases, Surgery Procedures CT Abdomen- suggested pathology involving sigmoid colon. Low grade inflammation in colon is not excluded but an underlying mass should be considered. KUB- no acute finding CT Abdomen- unchanged sigmoid mural thickening in pattern suggesting neoplastic infiltration more so than diverticulitis. Correlate with colonoscopy. Paracolic inflammation as well as nearby mesenteric adenopathy. Colonoscopy- internal hemorrhoids, active diverticulitis sigmoid colon with purulent drainage Brief Hospital Course DISCHARGE PHYSICAL EXAM General: No acute distress. Mental status: Alert. Very hard of hearing. Chest: Clear to auscultation anteriorly. Good air movement CV: Normal rate. Regular rhythm. No murmur. Abdomen: Normal bowel sounds. Soft, obese. Minimal tenderness primarily in the lower quadrants. Extremities: No lower extremity edema on the left. 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 Pt is a 66yo CF admitted with abdominal pain found to be 2/2 C dificile and diverticulitis 1. Abdominal pain due to C. difficile and diverticulitis: Continue oral antibiotics per infectious disease. Pt's leukocytosis and electrolyte abnormalities have resolved, will continue abx for an additional 6 days ( Vancomycin and Doxycycline). GI was following- s/p colonoscopy this admission because there was concern for possible malignancy. Colonoscopy showed diverticulitis. Pt is tolerating soft diet 2. C. difficile colitis: Continue oral vancomycin 3. Diverticulitis: Continue oral antibiotics. 4. Anemia- mild, no active bleeding. Disposition/Orders: D/C to Home CONDITION AT DISCHARGE: Stable Diet: Soft Scheduled ([Vancomycin Hcl]) 250 MG PO [id number] Acidoph/L.bulg/Bif.b/S.thermop (Maria Esther-Bid [place]) 1 TAB PO TIDWMEALS Doxycycline Hyclate (Doxycycline Hyclate) 100 MG PO BID Scheduled PRN Hydrocodone Bit/Acetaminophen (Hydrocodone-Apap 5-325 ) 1 TAB PO PRN Q6HRS PRN PRN PAIN Discontinued Medications Hydrocodone/Apap 10-325 ([place] 10-325 Tablet) 1-2 TAB PO Q4-6HRS (Reported) Lisinopril (Lisinopril) 1 TAB PO DAILY (Reported) Oxybutynin Chloride (Oxybutynin Chloride) 15 MG PO DAILY (Reported) Oxycodone Hcl (Oxycodone Hcl) 1 TAB PO BID (Reported) PCP Follow up with Dr. Cisse in the next 7-10 days. Call if needing something sooner Time Spent Total time spent with patient [] minutes for coordination of care, counseling, and education. CISCO YE MD Aug 19, 2016 08:37
[2016-08-19] MEDS: BISMUTH SUBSALICYLATE 262 MG/15 ML ORAL.SUSP 236ML BOTTLE. PO SCH (09:00)
[2016-08-19] MEDS: SACCHAROMYCES BOULARDII 250 MG CAPSULE. PO SCH (09:15)
[2016-08-19] MEDS: LACTOBACILLUS ACIDOPH & BULGAR 1 TABLET. PO SCH (09:15)
[2016-08-19] MEDS: ENOXAPARIN 40 MG/0.4 ML SYRINGE. SQ SCH (09:16)
[2016-08-19] MEDS: DOXYCYCLINE HYCLATE 100 MG TABLET PO SCH (09:16)
[2016-08-19] MEDS: VANCOMYCIN 250 MG/5 ML ORAL SOLUTION. PO SCH (09:16)
[2016-08-19] MEDS: HYDROCODONE/APAP 5/325MG TABLET. PO PRN (10:36)
== END 2016-08-19 11:33 | disposition home or self-care (01) | DRG 374 ==
LOC: ER 12:08 → 6 SOUTH 14:57
PROVIDERS: ADMIT Family Medicine; ATTEND Family Medicine
PROC: 0DJD8ZZ Inspection of Lower Intestinal Tract, Via Natural or Artificial Opening Endoscopic (ICD-10-PCS; principal; 2016-08-12 16:00)
DX: C18.7 Malignant neoplasm of sigmoid colon (principal); E43 Unspecified severe protein-calorie malnutrition; A04.7 Enterocolitis due to Clostridium difficile; K57.32 Diverticulitis of large intestine without perforation or abscess without bleeding; Z68.41 Body mass index [BMI] 40.0-44.9, adult; K29.70 Gastritis, unspecified, without bleeding; E66.01 Morbid (severe) obesity due to excess calories; E87.5 Hyperkalemia; G89.29 Other chronic pain; I10 Essential (primary) hypertension; K21.9 Gastro-esophageal reflux disease without esophagitis; H91.90 Unspecified hearing loss, unspecified ear; M19.90 Unspecified osteoarthritis, unspecified site; Z96.651 Presence of right artificial knee joint; K64.8 Other hemorrhoids; B96.81 Helicobacter pylori [H. pylori] as the cause of diseases classified elsewhere; D64.9 Anemia, unspecified; E86.0 Dehydration; K59.00 Constipation, unspecified; Z80.8 Family history of malignant neoplasm of other organs or systems; Z82.0 Family history of epilepsy and other diseases of the nervous system; Z82.49 Family history of ischemic heart disease and other diseases of the circulatory system; Z88.8 Allergy status to other drugs, medicaments and biological substances; Z90.49 Acquired absence of other specified parts of digestive tract; Z89.611 Acquired absence of right leg above knee; Z79.891 Long term (current) use of opiate analgesic
CPT/HCPCS: 36415; 74000; 74176; 74177; 80048; 80053; 80076; 81001; 82378; 83690; 84484; 85027; 86304; 87086; 87324; 87641; 93005; 96374; 96375; J1200; J1650; J1956; J2175; J2250; J2270; J2405; J3010; J3243; J3490; J7030; J7120; Q0162; Q0163; Q9967; 97110; 97530; 99285-25

== ENCOUNTER → 2016-09-16 | Outpatient (CLI) | payer OTHER ==
[2016-08-19 07:00] VITALS: BP 133/75
[~2016-09-16] MED LIST changes: +ACID1TAB14 PO; +DOXY100T PO; +IOHEXOL 300 MG/ML 100ML VIAL. IV ONE; +LISI-334 PO; +OXYB5TAB7 PO; +Vancomycin Hcl PO
--- NOTE | 2016-09-16 12:02 | KCIC ---
Examination: CT pelvis with IV contrast. HISTORY History of acute diverticulitis COMPARISON 08/11/2016. TECHNIQUE Axial CT images of the pelvis were performed with IV contrast. Coronal sagittal reformats were performed. Exposure: One or more of the following dose reduction technique were utilized for this examination: 1. Automated exposure control. 2.Adjustment of MA and /or KV according to patient size. 3. Use of iterative reconstruction technique. Findings: There is moderate inflammatory fat stranding identified about the sigmoid colon with multiple sigmoid colon diverticulosis likely acute diverticulitis. No focal fluid collection identified to suggest abscess. There is a moderate thickened appearance of the sigmoid colon wall. Urinary bladder is mildly distended. Severe degenerative changes bilateral hip joints. Moderate degenerative changes lower lumbar spine. Impression: Moderate inflammatory fat stranding identified about the sigmoid colon region likely acute diverticulitis. There is moderate thickened appearance of the sigmoid colon wall. This could be secondary to underlying acute diverticulitis however a mucosal pathology such as neoplasm is not completely excluded. A followup colonoscopy is recommended after the acute episode has resolved. Electronically signed by: Anatoly Mercado (September 16, 2016 12:00:37)
== END | disposition home or self-care (01) ==
LOC: KCIC CT 08:52
PROVIDERS: ATTEND Family Medicine
DX: K57.92 Diverticulitis of intestine, part unspecified, without perforation or abscess without bleeding (principal)
CPT/HCPCS: 72193; Q9967

== ENCOUNTER 2017-02-04 19:45 | Emergency (ER) | payer OTHER ==
[~2017-02-04] VITALS: Ht 157.5 cm; Wt 74.4 kg
[~2017-02-04 19:45] MED LIST changes: +AMOX1TAB11 PO; -HYDR-2666 PO; +HYDR-2758 PO; +HYDR-2766 PO; -IOHEXOL 300 MG/ML 100ML VIAL. IV ONE; +LINE600T PO; +LISI10TA2 PO; +MAGN400T22 PO; +METR500T8 PO; +PANT40TA5 PO; +POTA10TA12 PO; +VANC500V PO
[2017-02-04] MEDS ORDERED: IV NORMAL SALINE 500ML BAG 500 ML IV ONE (20:00)
[2017-02-04 20:24] LABS: BASO % 0 % (0-3); EOS % 1 % (0-3); HEMATOCRIT 30.8 % (36.0-47.0); HEMOGLOBIN 10.2 g/dL (12.0-15.5); LYMPH # 2.4 x10^3/uL (1.0-4.8); LYMPH % 23 % (24-48); MEAN CORPUSCULAR HEMOGLOBIN 30 pg (25-35); MEAN CORPUSCULAR HGB CONC 33 g/dL (31-37); MEAN CORPUSCULAR VOLUME 90 fL (79-100); MONO % 12 % (0-9); NEUT % 64 % (31-73); PLATELET COUNT 324 x10^3/uL (140-400); RED BLOOD COUNT 3.41 x10^6/uL (3.50-5.40); RED CELL DISTRIBUTION WIDTH 15.3 % (11.5-14.5); WHITE BLOOD COUNT 10.2 x10^3/uL (4.0-11.0)
[2017-02-04 20:40] LABS: CALCIUM 9.1 mg/dL (8.5-10.1); CREATININE 0.7 mg/dL (0.6-1.0); GFR 83.7; POTASSIUM 4.1 mmol/L (3.5-5.1)
[2017-02-04] MEDS ORDERED: ONDANSETRON PF 4 MG/2 ML VIAL. ONE (20:42)
[2017-02-04 20:45] LABS: ALBUMIN 2.5 g/dL (3.4-5.0); ALBUMIN/GLOBULIN RATIO 0.5 (1.0-1.7); TOTAL BILIRUBIN 0.4 mg/dL (0.2-1.0); TOTAL PROTEIN 7.4 g/dL (6.4-8.2)
[2017-02-04] MEDS: HYDROmorphone 2 MG/ML VIAL IV PRN ×2 (20:46→23:34)
[2017-02-04] MEDS ORDERED: ONDANSETRON PF 4 MG/2 ML VIAL. IV ONE (21:00)
--- NOTE | 2017-02-04 21:05 | PHYS DOC ---
Past Medical History Past Medical History: COPD, GERD, Hypertension, MRSA, Other Additional Past Medical Histor: "bladder problems", HYPERKALEMIA, EXTREMELY HARD OF HEARING Past Surgical History: Appendectomy, Cholecystectomy, Colectomy, Tonsillectomy , Other Additional Past Surgical Histo: R AKA, hernia Alcohol Use: None Drug Use: None Adult General Chief Complaint Chief Complaint: GI PROBLEM HPI HPI 66-year-old female presenting to the emergency department today status post sigmoid colectomy about a month ago presenting after patient complains of wound care problems with at home nurse along with abdominal pain. Her pain is a sharp shooting pain that is nonradiating intermittent and without alleviating factors. She has postoperative wounds that are being packed regularly. She denies nausea vomiting fevers. Review of systems is negative for chest pain shortness of breath fevers chills nausea vomiting. All other review of systems is negative unless otherwise noted in history of present illness. ED course: 66-year-old female presenting to the emergency department today with worsening drainage from her wounds from her recent sigmoid colectomy. Triage vital signs show mild increased temperature but technically afebrile. Normal pulse rate. Pertinent physical exam findings show 3 wounds in the anterior abdomen that of impact. mild drainage present. Packing seems to be recently changed. nursing notes report "dehised". The wound is not dehisced however obvious chronic wounds exist that are about a quarter size. The wound is on visual examination more chronic than dehisced. Blood work obtained. CT the abdomen pelvis obtained. I discussed the case with Dr. Sweeney who is on-call for the group who takes care of the patient primarily. It sounds as if the patient yesterday saw general surgery who saw the wound felt it was healing appropriately. Changed the dressings. Dr. Sweeney agrees to close outpatient follow-up. CT negative. Blood work unremarkable. Urinalysis shows UTI. Antibiotics given. Follow up with PCP tomorrow or the next day. The patient was then discharged home in stable condition. They were to return if their symptoms worsened or if they were concerned for any reason. [id number] discharge instructions and return precautions were given. Patient's questions were answered to their satisfaction. Patient is comfortable plan. Review of Systems Review of Systems SEE ABOVE. Current Medications Current Medications Current Medications Medications (Trade) Dose Ordered Sig/Haim Start Time Stop Time Status Last Admin Dose Admin Hydromorphone HCl (Dilaudid) 0.5 mg PRN Q30MIN PRN 02/04/17 20:00 02/04/17 20:46 0.5 MG Info (Do NOT chart on this entry -- for MONITORING) 1 each PRN DAILY PRN 02/04/17 22:00 02/06/17 21:59 Iohexol (Omnipaque 300 Mg/ml) 75 ml STK-MED ONCE 02/04/17 22:26 02/04/17 22:27 DC Ondansetron HCl (Zofran) 4 mg 1X ONCE 02/04/17 21:00 02/04/17 21:01 DC 02/04/17 20:53 4 MG Sodium Chloride 500 ml @ 500 mls/hr 1X ONCE 02/04/17 20:00 02/04/17 20:59 DC 02/04/17 20:45 500 MLS/HR Allergies Allergies Allergies Coded Allergies Type Severity Reaction Last Updated Verified I S O L A T I O N *CONTACT* Allergy Intermediate 01/07/17 Yes codeine Allergy Intermediate TOLERATES MORPHINE 01/07/17 Yes meperidine Adverse Reaction Intermediate Nausea and Vomiting 01/07/17 Yes Physical Exam Physical Exam SEE ABOVE Constitutional: Well developed, well nourished, no acute distress, non-toxic appearance. [] HENT: Normocephalic, atraumatic, bilateral external ears normal, oropharynx moist, no oral exudates, nose normal. [] Eyes: PERRLA, EOMI, conjunctiva normal, no discharge. [] Neck: Normal range of motion, no tenderness, supple, no stridor. [] Cardiovascular:Heart rate regular rhythm, no murmur [] Lungs & Thorax: Bilateral breath sounds clear to auscultation [] Abdomen: Abdomen is soft and nontender with postsurgical wounds as described above. No evidence of cellulitis. Skin: Warm, dry, no erythema, no rash. [] Back: No tenderness, no CVA tenderness. [] Extremities: No tenderness, no cyanosis, no clubbing, ROM intact, no edema. [] Neurologic: Alert and oriented X 3, normal motor function, normal sensory function, no focal deficits noted. [] Psychologic: Affect normal, judgement normal, mood normal. [] Current Patient Data Vital Signs Vital Signs Date Time Temp Pulse Resp B/P (MAP) Pulse Ox O2 Delivery O2 Flow Rate FiO2 02/04/17 21:16 16 97 Room Air 02/04/17 19:47 99.2 79 127/85 (99) 99.2 Lab Values Laboratory Tests Test 02/04/17 20:15 02/04/17 21:45 White Blood Count 10.2 x10^3/uL (4.0-11.0) Red Blood Count 3.41 x10^6/uL (3.50-5.40) L Hemoglobin 10.2 g/dL (12.0-15.5) L Hematocrit 30.8 % (36.0-47.0) L Mean Corpuscular Volume 90 fL (79-100) Mean Corpuscular Hemoglobin 30 pg (25-35) Mean Corpuscular Hemoglobin Concent 33 g/dL (31-37) Red Cell Distribution Width 15.3 % (11.5-14.5) H Platelet Count 324 x10^3/uL (140-400) Neutrophils (%) (Auto) 64 % (31-73) Lymphocytes (%) (Auto) 23 % (24-48) L Monocytes (%) (Auto) 12 % (0-9) H Eosinophils (%) (Auto) 1 % (0-3) Basophils (%) (Auto) 0 % (0-3) Neutrophils # (Auto) 6.6 x10^3uL (1.8-7.7) Lymphocytes # (Auto) 2.4 x10^3/uL (1.0-4.8) Monocytes # (Auto) 1.2 x10^3/uL (0.0-1.1) H Eosinophils # (Auto) 0.1 x10^3/uL (0.0-0.7) Basophils # (Auto) 0.0 x10^3/uL (0.0-0.2) Sodium Level 139 mmol/L (136-145) Potassium Level 4.1 mmol/L (3.5-5.1) Chloride Level 103 mmol/L (98-107) Carbon Dioxide Level 30 mmol/L (21-32) Anion Gap 6 (6-14) Blood Urea Nitrogen 15 mg/dL (7-20) Creatinine 0.7 mg/dL (0.6-1.0) Estimated GFR (Cockcroft-Gault) 83.7 BUN/Creatinine Ratio 21 (6-20) H Glucose Level 112 mg/dL (70-99) H Lactic Acid Level 0.7 mmol/L (0.4-2.0) Calcium Level 9.1 mg/dL (8.5-10.1) Total Bilirubin 0.4 mg/dL (0.2-1.0) Aspartate Amino Transferase (AST) 16 U/L (15-37) Alanine Aminotransferase (ALT) 6 U/L (14-59) L Alkaline Phosphatase 78 U/L (46-116) Troponin I Quantitative < 0.017 ng/mL (0.000-0.055) Total Protein 7.4 g/dL (6.4-8.2) Albumin 2.5 g/dL (3.4-5.0) L Albumin/Globulin Ratio 0.5 (1.0-1.7) L Lipase 253 U/L (73-393) Urine Collection Type U cath Urine Color [place] Urine Clarity Clear Urine pH 6.0 Urine Specific [place] 1.025 Urine Protein 30 mg/dL (NEG-TRACE) Urine Glucose (UA) Negative mg/dL (NEG) Urine Ketones (Stick) Negative mg/dL (NEG) Urine Blood Small (NEG) Urine Nitrite Positive (NEG) Urine Bilirubin Small (NEG) Urine Urobilinogen Dipstick 1.0 mg/dL (0.2 mg/dL) Urine Leukocyte Esterase Large (NEG) Urine RBC 6-10 /HPF (0-2) Urine WBC Tntc /HPF (0-4) Urine Squamous Epithelial Cells Few /LPF Urine Bacteria Many /HPF (0-FEW) Urine Mucus Marked /LPF Laboratory Tests 02/04/17 20:15 Laboratory Tests 02/04/17 20:15 EKG EKG [] Radiology/Procedures Radiology/Procedures [] Course & Med Decision Making Course & Med Decision Making Pertinent Labs and Imaging studies reviewed. (See chart for details) [] Dragon Disclaimer Dragon Disclaimer This electronic medical record was generated, in whole or in part, using a voice recognition dictation system. Departure Departure Impression: Primary Impression: Encounter for post surgical wound check Additional Impressions: Abdominal pain UTI (urinary tract infection) Disposition: 01 HOME, SELF-CARE Condition: STABLE Referrals: Yao HEATON MD (PCP) Patient Instructions: Wound Care, [id number] Additional Instructions: Thank you for allowing us to participate in your care today. Followup with your primary care physician in 1-2 days. Call your Primary Doctor tomorrow and inform them of your visit today. If you do not have a primary care provider you can ask for a list of our primary care providers. Return to the emergency department you have any new or concerning findings. This should be evaluated by the primary care physician and any necessary consulting services for continued management within a few days after discharge. Return to emergency room if you have any new or concerning symptoms including but not limited to fever, chills, nausea, vomiting, intractable pain, any new rashes, chest pain, shortness of air, uncontrolled bleeding, difficulty breathing, and/or vision loss. Scripts Levofloxacin (LEVOFLOXACIN) 500 Mg Tablet 1 TAB PO DAILY, #7 TAB Prov: MARIA INES GARCIA MD 02/04/17 Problem Qualifiers MARIA INES GARCIA MD Feb 04, 2017 21:05
[2017-02-04 21:54] LABS: BILIRUBIN,URINE SMALL (NEG); GLUCOSE,URINE NEGATIVE (NEG); NITRITE,URINE POSITIVE (NEG); PROTEIN,URINE 30 mg/dL (NEG-TRACE)
[2017-02-04] MEDS ORDERED: IOHEXOL 300 MG/ML 75 ML VIAL IV ONE (22:00)
[2017-02-04] MEDS ORDERED: CONTRAST GIVEN MC PRN (22:00)
[2017-02-04 22:03] LABS: BACTERIA,URINE MANY /HPF (0-FEW); SQUAMOUS EPITHELIAL CELL,UR FEW /LPF; WBC,URINE TNTC /HPF (0-4)
[2017-02-04] MEDS ORDERED: IOHEXOL 300 MG/ML 75 ML VIAL ONE (22:26)
--- NOTE | 2017-02-04 23:13 | RAD ---
CT study of the abdomen and pelvis with contrast Clinical indications: Worsening abdominal pain. Status post colectomy in December 2016. TECHNIQUE: After IV infusion of 75 cc of Omnipaque 300, helical CT scanning of the abdomen and pelvis was performed. No GI contrast was administered. This may decrease the sensitivity to detect GI tract pathology. PQRS compliance Statement One or more of the following individualized dose reduction techniques were utilized for this study: 1. Automated exposure control 2. Adjustment of the mA and/or kV according to patient size 3. Use of iterative reconstruction technique COMPARISON: January 05, 2017. FINDINGS: The liver and spleen and pancreas are unremarkable. The gallbladder is surgically absent. No extrahepatic biliary ductal dilatation is seen. No adrenal mass is evident. Left renal atrophy is seen. No hydronephrosis or hydroureter is seen on either side. Urinary bladder wall is smooth. No focal aneurysmal dilatation of the abdominal aorta is seen. No enlarged abdominal or pelvic lymphadenopathy is evident. No uterine mass is seen. No dominant ovarian cyst or mass is seen. A new anterior midline abdominal wall incision is seen. Multiple bubbles of air are seen within the incision with a small amount of fluid. No enlarged prominent postoperative fluid collection or abscess is seen in this area otherwise. No obstructive bowel pattern is seen. No free air or free fluid or mesenteric inflammatory change is seen. No bibasilar lung consolidation is seen. No osteolytic process is seen. IMPRESSION: Bubbles of air and small amount of fluid is seen within the anterior abdominal wall midline incision. This may represent postoperative finding. This could be seen with dehiscence if there are clinical findings of such. However no protrusion of abdominal contents into the incision or hernia is seen. No obstructive bowel pattern or free air or free fluid is seen. Again seen is a subcentimeter indeterminate nodule of the anterior aspect of the right kidney which is unchanged. Electronically signed by: Johan Serna MD (02/04/2017 11:10 PM) [facility]
[2017-02-04] MEDS ORDERED: LEVO500T8 PO (23:29)
[2017-02-05 00:16] VITALS: BP 112/66
== END 2017-02-04 23:53 | disposition home or self-care (01) ==
LOC: ER 19:45
DX: Z48.01 Encounter for change or removal of surgical wound dressing (principal); N39.0 Urinary tract infection, site not specified; I10 Essential (primary) hypertension; J44.9 Chronic obstructive pulmonary disease, unspecified; K21.9 Gastro-esophageal reflux disease without esophagitis; Z90.49 Acquired absence of other specified parts of digestive tract; Z86.14 Personal history of Methicillin resistant Staphylococcus aureus infection; Z88.5 Allergy status to narcotic agent; Z88.8 Allergy status to other drugs, medicaments and biological substances; Z91.041 Radiographic dye allergy status
CPT/HCPCS: 36415; 74177; 80053; 81001; 83605; 83690; 84484; 85025; 87086; 87186; 96361; 96374; 96375; 96376; 99285; J1170; J2405; J7040; Q9967

== ENCOUNTER → 2017-02-13 | Outpatient (CLI) | payer OTHER ==
[2017-02-05 00:16] VITALS: BP 112/66
[~2017-02-13] MED LIST changes: +LEVO500T8 PO
== END | disposition home or self-care (01) ==
LOC: PMGWOUND 09:49
PROVIDERS: ATTEND Preventive Medicine Undersea and Hyperbaric Medicine
DX: T81.89XD Other complications of procedures, not elsewhere classified, subsequent encounter (principal); J44.9 Chronic obstructive pulmonary disease, unspecified; I10 Essential (primary) hypertension; F32.9 Major depressive disorder, single episode, unspecified; M19.90 Unspecified osteoarthritis, unspecified site; Z86.14 Personal history of Methicillin resistant Staphylococcus aureus infection; Z90.49 Acquired absence of other specified parts of digestive tract; Z90.710 Acquired absence of both cervix and uterus; Z89.611 Acquired absence of right leg above knee; Y83.8 Other surgical procedures as the cause of abnormal reaction of the patient, or of later complication, without mention of misadventure at the time of the procedure
CPT/HCPCS: 87071; 87075; 87186; 87205; 99214

== ENCOUNTER → 2017-02-19 | Outpatient (CLI) | payer OTHER ==
[2017-02-05 00:16] VITALS: BP 112/66
[~2017-02-19] MED LIST changes: +IOHEXOL 240 MG/ML 50ML VIAL. PO ONE; +IOHEXOL 300 MG/ML 50 ML VIAL. IJ ONE; +IOHEXOL 300 MG/ML 75 ML VIAL IV ONE
--- NOTE | 2017-02-19 14:38 | RAD ---
Fistulogram Indication: Nonhealing surgical wound in the midline in the abdomen. Technique: Patient was laid supine on the fluoroscopy table. Surgical packing material was removed. Attempt to cannulize the abdominal wound was made with Espinosa catheter. 30 mL of Omnipaque 300 was injected through the Espinosa catheter. Total fluoroscopy time of 0.6 minutes. Comparison: Previous CT abdomen/pelvis from 02/04/2017. Findings: Contrast pooling was observed in the right lower quadrant with eventual spillage. No definite fistulous connection was observed with underlying bowel. Impression: As above.
--- NOTE | 2017-02-19 14:48 | RAD ---
CT abdomen/pelvis without IV contrast Indication: Nonhealing surgical wound Technique: CT abdomen/pelvis without IV contrast with multiplanar reformats. IV contrast was not given due to inability to obtain IV access upper multiple attempts. Comparison: Previous CT from 02/04/2017 Findings: Limited study due to lack of IV contrast. Heart is normal in size. No pericardial or pleural effusion. Stable 2 mm nodule in the right lower lobe. Subsegmental atelectasis in the right middle lobe and lingula. Noncontrast appearance of the liver, spleen, pancreas, adrenals is within normal limits. No hydronephrosis. Status post cholecystectomy. Duodenal diverticulum noted in the second portion of duodenum. No bowel obstruction. Normal appendix. No retroperitoneal or pelvic adenopathy. No mesenteric adenopathy. Open Midline anterior abdominal wall surgical wound noted centered on the umbilicus. Pooling of previously injected contrast is seen in the dependent portion. There is no intra-abdominal spillage of contrast. The colon is away from this surgical wound. Loop of small bowel is seen contacting the posterior margin of the right rectus abdominis musculature. No obvious fistulous connection observed with this loop of small bowel. A surgical wound is approximately 7.4 cm in length and 4 cm in width. No abnormal fluid collection adjacent to the surgical wound. Uterus is present and is anteverted. Ovaries are visualized and are within normal limits. No free pelvic fluid. Bladder within normal limits. Dextroscoliosis of the lumbar spine with multilevel degenerative changes. No suspicious bony lesions. Impression: 1. Redemonstrated is an open midline anterior abdominal wall surgical wound with no imaging evidence of fistulous connection to the bowel. There is no intra-abdominal extension. No abscess. 2. No bowel obstruction. PQRS Compliance Statement: One or more of the following individualized dose reduction techniques were utilized for this examination: 1. Automated exposure control 2. Adjustment of the mA and/or kV according to patient size 3. Use of iterative reconstruction technique
== END | disposition home or self-care (01) ==
LOC: CT 09:42
PROVIDERS: ATTEND Preventive Medicine Undersea and Hyperbaric Medicine
DX: T81.89XA Other complications of procedures, not elsewhere classified, initial encounter (principal); K57.10 Diverticulosis of small intestine without perforation or abscess without bleeding; I10 Essential (primary) hypertension; Z90.49 Acquired absence of other specified parts of digestive tract
CPT/HCPCS: 73501; 74176; Q9967; 76080

== ENCOUNTER → 2017-02-26 | Outpatient (CLI) | payer OTHER ==
[2017-02-05 00:16] VITALS: BP 112/66
[~2017-02-26] MED LIST changes: -IOHEXOL 240 MG/ML 50ML VIAL. PO ONE; -IOHEXOL 300 MG/ML 50 ML VIAL. IJ ONE; -IOHEXOL 300 MG/ML 75 ML VIAL IV ONE
== END | disposition home or self-care (01) ==
LOC: PMGWOUND 12:12
PROVIDERS: ATTEND Emergency Medicine Undersea and Hyperbaric Medicine
DX: T81.31XD Disruption of external operation (surgical) wound, not elsewhere classified, subsequent encounter (principal); K21.9 Gastro-esophageal reflux disease without esophagitis; M19.90 Unspecified osteoarthritis, unspecified site; E66.9 Obesity, unspecified; F32.9 Major depressive disorder, single episode, unspecified; J44.9 Chronic obstructive pulmonary disease, unspecified; Z68.30 Body mass index [BMI] 30.0-30.9, adult; Y83.8 Other surgical procedures as the cause of abnormal reaction of the patient, or of later complication, without mention of misadventure at the time of the procedure
CPT/HCPCS: 99213

== ENCOUNTER → 2017-03-05 | Outpatient (CLI) | payer OTHER ==
[2017-02-05 00:16] VITALS: BP 112/66
== END | disposition home or self-care (01) ==
LOC: PMGWOUND 13:24
PROVIDERS: ATTEND Emergency Medicine Undersea and Hyperbaric Medicine
DX: T81.31XD Disruption of external operation (surgical) wound, not elsewhere classified, subsequent encounter (principal); J44.9 Chronic obstructive pulmonary disease, unspecified; K21.9 Gastro-esophageal reflux disease without esophagitis; F32.9 Major depressive disorder, single episode, unspecified; E66.9 Obesity, unspecified; M19.90 Unspecified osteoarthritis, unspecified site; I10 Essential (primary) hypertension; Z89.511 Acquired absence of right leg below knee; Z90.710 Acquired absence of both cervix and uterus; Y83.8 Other surgical procedures as the cause of abnormal reaction of the patient, or of later complication, without mention of misadventure at the time of the procedure; Z68.30 Body mass index [BMI] 30.0-30.9, adult
CPT/HCPCS: 99214

== ENCOUNTER → 2017-03-10 | Outpatient (CLI) | payer OTHER ==
[2017-02-05 00:16] VITALS: BP 112/66
== END | disposition home or self-care (01) ==
LOC: PMGWOUND 10:11
PROVIDERS: ATTEND Emergency Medicine Undersea and Hyperbaric Medicine
DX: T81.31XD Disruption of external operation (surgical) wound, not elsewhere classified, subsequent encounter (principal); J44.9 Chronic obstructive pulmonary disease, unspecified; I10 Essential (primary) hypertension; K21.9 Gastro-esophageal reflux disease without esophagitis; E66.9 Obesity, unspecified; M19.90 Unspecified osteoarthritis, unspecified site; Z90.49 Acquired absence of other specified parts of digestive tract; Z89.611 Acquired absence of right leg above knee; Z90.710 Acquired absence of both cervix and uterus; Z68.30 Body mass index [BMI] 30.0-30.9, adult; Y83.8 Other surgical procedures as the cause of abnormal reaction of the patient, or of later complication, without mention of misadventure at the time of the procedure
CPT/HCPCS: 97605

== ENCOUNTER → 2017-03-30 | Outpatient (CLI) | payer OTHER ==
[2017-02-05 00:16] VITALS: BP 112/66
== END | disposition home or self-care (01) ==
LOC: PMGWOUND 11:09
PROVIDERS: ATTEND Emergency Medicine Undersea and Hyperbaric Medicine
DX: T81.31XD Disruption of external operation (surgical) wound, not elsewhere classified, subsequent encounter (principal); K21.9 Gastro-esophageal reflux disease without esophagitis; M19.90 Unspecified osteoarthritis, unspecified site; I10 Essential (primary) hypertension; E66.9 Obesity, unspecified; Z68.30 Body mass index [BMI] 30.0-30.9, adult; F32.9 Major depressive disorder, single episode, unspecified; Y83.8 Other surgical procedures as the cause of abnormal reaction of the patient, or of later complication, without mention of misadventure at the time of the procedure
CPT/HCPCS: 97605

== ENCOUNTER → 2017-04-06 | Outpatient (CLI) | payer OTHER ==
[2017-02-05 00:16] VITALS: BP 112/66
== END | disposition home or self-care (01) ==
LOC: PMGWOUND 11:33
PROVIDERS: ATTEND Emergency Medicine Undersea and Hyperbaric Medicine
DX: T81.31XD Disruption of external operation (surgical) wound, not elsewhere classified, subsequent encounter (principal); I10 Essential (primary) hypertension; F32.9 Major depressive disorder, single episode, unspecified; E66.9 Obesity, unspecified; M19.90 Unspecified osteoarthritis, unspecified site; K21.9 Gastro-esophageal reflux disease without esophagitis; J44.9 Chronic obstructive pulmonary disease, unspecified; Z68.30 Body mass index [BMI] 30.0-30.9, adult; Z90.710 Acquired absence of both cervix and uterus; Z89.511 Acquired absence of right leg below knee; Z90.49 Acquired absence of other specified parts of digestive tract; Z89.512 Acquired absence of left leg below knee; Y83.8 Other surgical procedures as the cause of abnormal reaction of the patient, or of later complication, without mention of misadventure at the time of the procedure
CPT/HCPCS: 97605

== ENCOUNTER → 2017-04-20 | Outpatient (CLI) | payer OTHER ==
[2017-02-05 00:16] VITALS: BP 112/66
== END | disposition home or self-care (01) ==
LOC: PMGWOUND 11:01
PROVIDERS: ATTEND Emergency Medicine Undersea and Hyperbaric Medicine
DX: T81.31XD Disruption of external operation (surgical) wound, not elsewhere classified, subsequent encounter (principal); J44.9 Chronic obstructive pulmonary disease, unspecified; M19.90 Unspecified osteoarthritis, unspecified site; E66.9 Obesity, unspecified; Z68.30 Body mass index [BMI] 30.0-30.9, adult; F32.9 Major depressive disorder, single episode, unspecified; Z90.710 Acquired absence of both cervix and uterus; Z89.611 Acquired absence of right leg above knee; Z89.612 Acquired absence of left leg above knee; Y83.8 Other surgical procedures as the cause of abnormal reaction of the patient, or of later complication, without mention of misadventure at the time of the procedure
CPT/HCPCS: 99213

== ENCOUNTER → 2017-05-05 | Outpatient (CLI) | payer OTHER ==
[2017-02-05 00:16] VITALS: BP 112/66
== END | disposition home or self-care (01) ==
LOC: PMGWOUND 08:25
PROVIDERS: ATTEND Emergency Medicine Undersea and Hyperbaric Medicine
DX: T81.31XD Disruption of external operation (surgical) wound, not elsewhere classified, subsequent encounter (principal); J44.9 Chronic obstructive pulmonary disease, unspecified; M19.90 Unspecified osteoarthritis, unspecified site; F32.9 Major depressive disorder, single episode, unspecified; E66.9 Obesity, unspecified; Z68.30 Body mass index [BMI] 30.0-30.9, adult; Z90.710 Acquired absence of both cervix and uterus; Z89.611 Acquired absence of right leg above knee; Z89.612 Acquired absence of left leg above knee; Y83.8 Other surgical procedures as the cause of abnormal reaction of the patient, or of later complication, without mention of misadventure at the time of the procedure
CPT/HCPCS: 17250

== ENCOUNTER → 2017-06-05 | Outpatient (CLI) | payer OTHER | END | disposition home or self-care (01) | LOC: PMGWOUND 08:36 | DX: T81.31XD Disruption of external operation (surgical) wound, not elsewhere classified, subsequent encounter (principal); J44.9 Chronic obstructive pulmonary disease, unspecified; M19.90 Unspecified osteoarthritis, unspecified site; F32.9 Major depressive disorder, single episode, unspecified; I10 Essential (primary) hypertension; K21.9 Gastro-esophageal reflux disease without esophagitis; E66.9 Obesity, unspecified; Z68.41 Body mass index [BMI] 40.0-44.9, adult; Z89.611 Acquired absence of right leg above knee; Z89.612 Acquired absence of left leg above knee; Y83.8 Other surgical procedures as the cause of abnormal reaction of the patient, or of later complication, without mention of misadventure at the time of the procedure | CPT/HCPCS: 99214 ==

== ENCOUNTER → 2017-06-12 | Outpatient (CLI) | payer OTHER | END | disposition home or self-care (01) | LOC: PMGWOUND 08:13 | DX: T81.31XD Disruption of external operation (surgical) wound, not elsewhere classified, subsequent encounter (principal); J44.9 Chronic obstructive pulmonary disease, unspecified; M19.90 Unspecified osteoarthritis, unspecified site; F32.9 Major depressive disorder, single episode, unspecified; I10 Essential (primary) hypertension; K21.9 Gastro-esophageal reflux disease without esophagitis; E66.9 Obesity, unspecified; Z68.41 Body mass index [BMI] 40.0-44.9, adult; Z89.611 Acquired absence of right leg above knee; Z89.612 Acquired absence of left leg above knee; Y83.8 Other surgical procedures as the cause of abnormal reaction of the patient, or of later complication, without mention of misadventure at the time of the procedure | CPT/HCPCS: 99214 ==

== ENCOUNTER 2017-06-26 18:36 | Emergency (ER) | payer OTHER ==
[2017-06-26] MEDS: ASPIRIN CHEWABLE 81 MG TABLET. PO ×2 (18:55)
[2017-06-26 19:35] LABS: ADD MAN DIFF? NO
[2017-06-26 19:37] LABS: BASO # 0.1 x10^3/uL (0.0-0.2); BASO % 1 % (0-3); EOS # 0.2 x10^3/uL (0.0-0.7); EOS % 2 % (0-3); HEMATOCRIT 39.9 % (36.0-47.0); HEMOGLOBIN 13.3 g/dL (12.0-15.5); LYMPH # 3.2 x10^3/uL (1.0-4.8); LYMPH % 36 % (24-48); MEAN CORPUSCULAR HEMOGLOBIN 30 pg (25-35); MEAN CORPUSCULAR HGB CONC 33 g/dL (31-37); MEAN CORPUSCULAR VOLUME 90 fL (79-100); MONO # 0.9 x10^3/uL (0.0-1.1); MONO % 10 % (0-9); NEUT # 4.5 x10^3uL (1.8-7.7); NEUT % 51 % (31-73); PLATELET COUNT 250 x10^3/uL (140-400); RED BLOOD COUNT 4.43 x10^6/uL (3.50-5.40); RED CELL DISTRIBUTION WIDTH 13.8 % (11.5-14.5); WHITE BLOOD COUNT 8.8 x10^3/uL (4.0-11.0)
[2017-06-26] MEDS: IV NORMAL SALINE 1000ML BAG 1,000 ML IV ×4 (19:38)
[2017-06-26 19:47] LABS: ANION GAP 10 (6-14); BLOOD UREA NITROGEN 17 mg/dL (7-20); BUN/CREATININE RATIO 24 (6-20); CALCIUM 8.8 mg/dL (8.5-10.1); CARBON DIOXIDE 27 mmol/L (21-32); CHLORIDE 105 mmol/L (98-107); CREATININE 0.7 mg/dL (0.6-1.0); GFR 83.5; GLUCOSE 105 mg/dL (70-99); POTASSIUM 3.9 mmol/L (3.5-5.1); SODIUM 142 mmol/L (136-145)
[2017-06-26 19:52] LABS: ALBUMIN 3.1 g/dL (3.4-5.0); ALBUMIN/GLOBULIN RATIO 0.7 (1.0-1.7); ALK PHOS 75 U/L (46-116); AST (SGOT) 19 U/L (15-37); TOTAL BILIRUBIN 0.2 mg/dL (0.2-1.0); TOTAL PROTEIN 7.7 g/dL (6.4-8.2)
[2017-06-26 19:54] LABS: ALT (SGPT) < 6 U/L (14-59)
[2017-06-26 19:55] LABS: TROPONINI < 0.017 ng/mL (0.000-0.055)
[2017-06-26] MEDS: ACETAMINOPHEN 500 MG TABLET PO ×2 (21:00)
== END 2017-06-26 23:26 | disposition home or self-care (01) ==
LOC: ER 18:36
DX: R07.89 Other chest pain (principal); I10 Essential (primary) hypertension; J44.9 Chronic obstructive pulmonary disease, unspecified; K21.9 Gastro-esophageal reflux disease without esophagitis; Z79.82 Long term (current) use of aspirin; Z89.611 Acquired absence of right leg above knee; Z88.5 Allergy status to narcotic agent; Z91.041 Radiographic dye allergy status; Z88.8 Allergy status to other drugs, medicaments and biological substances; Z86.14 Personal history of Methicillin resistant Staphylococcus aureus infection
CPT/HCPCS: 36415; 71045; 80053; 84484; 85025; 93005; 96360; 96361; 99285-25; J7030

== ENCOUNTER → 2017-07-17 | Outpatient (CLI) | payer OTHER | END | disposition home or self-care (01) | LOC: PMGWOUND 10:55 | DX: T81.31XD Disruption of external operation (surgical) wound, not elsewhere classified, subsequent encounter (principal); J44.9 Chronic obstructive pulmonary disease, unspecified; M19.90 Unspecified osteoarthritis, unspecified site; F32.9 Major depressive disorder, single episode, unspecified; I10 Essential (primary) hypertension; K21.9 Gastro-esophageal reflux disease without esophagitis; E66.9 Obesity, unspecified; Z68.41 Body mass index [BMI] 40.0-44.9, adult; Z79.82 Long term (current) use of aspirin; Z89.611 Acquired absence of right leg above knee; Z89.612 Acquired absence of left leg above knee; Y83.8 Other surgical procedures as the cause of abnormal reaction of the patient, or of later complication, without mention of misadventure at the time of the procedure | CPT/HCPCS: 11042 ==

== ENCOUNTER → 2017-08-03 | Outpatient (CLI) | payer OTHER | END | disposition home or self-care (01) | LOC: PMGWOUND 12:32 | DX: T81.31XD Disruption of external operation (surgical) wound, not elsewhere classified, subsequent encounter (principal); J44.9 Chronic obstructive pulmonary disease, unspecified; M19.90 Unspecified osteoarthritis, unspecified site; F32.9 Major depressive disorder, single episode, unspecified; I10 Essential (primary) hypertension; K21.9 Gastro-esophageal reflux disease without esophagitis; E66.9 Obesity, unspecified; Z68.41 Body mass index [BMI] 40.0-44.9, adult; Z79.82 Long term (current) use of aspirin; Z89.611 Acquired absence of right leg above knee; Z89.612 Acquired absence of left leg above knee; Y83.8 Other surgical procedures as the cause of abnormal reaction of the patient, or of later complication, without mention of misadventure at the time of the procedure | CPT/HCPCS: 99214 ==

== ENCOUNTER → 2017-08-10 | Outpatient (CLI) | payer OTHER | END | disposition home or self-care (01) | LOC: PMGWOUND 12:33 | DX: T81.31XD Disruption of external operation (surgical) wound, not elsewhere classified, subsequent encounter (principal); J44.9 Chronic obstructive pulmonary disease, unspecified; M19.90 Unspecified osteoarthritis, unspecified site; F32.9 Major depressive disorder, single episode, unspecified; I10 Essential (primary) hypertension; K21.9 Gastro-esophageal reflux disease without esophagitis; E66.9 Obesity, unspecified; Z68.41 Body mass index [BMI] 40.0-44.9, adult; Z79.82 Long term (current) use of aspirin; Z89.611 Acquired absence of right leg above knee; Z89.612 Acquired absence of left leg above knee; Y83.8 Other surgical procedures as the cause of abnormal reaction of the patient, or of later complication, without mention of misadventure at the time of the procedure | CPT/HCPCS: 99214 ==

== ENCOUNTER 2017-08-23 01:15 | Emergency (ER) | payer OTHER ==
[2017-08-23] MEDS: ACYCLOVIR 200 MG CAPSULE. PO (01:59)
[2017-08-23] MEDS: oxyCODONE/APAP 5/325 1 TAB TABLET PO (02:00)
[2017-08-23] MEDS: IBUPROFEN 400 MG TABLET. PO (02:00)
== END 2017-08-23 03:11 | disposition home or self-care (01) ==
LOC: ER 01:15
DX: B02.9 Zoster without complications (principal); J44.9 Chronic obstructive pulmonary disease, unspecified; E11.9 Type 2 diabetes mellitus without complications; K21.9 Gastro-esophageal reflux disease without esophagitis; I10 Essential (primary) hypertension; Z89.611 Acquired absence of right leg above knee; Z86.14 Personal history of Methicillin resistant Staphylococcus aureus infection; Z90.49 Acquired absence of other specified parts of digestive tract; Z91.041 Radiographic dye allergy status; Z88.5 Allergy status to narcotic agent; Z88.8 Allergy status to other drugs, medicaments and biological substances
CPT/HCPCS: 99284

== ENCOUNTER → 2017-08-27 | Outpatient (CLI) | payer OTHER | END | disposition home or self-care (01) | LOC: PMGWOUND 12:08 | DX: T81.31XD Disruption of external operation (surgical) wound, not elsewhere classified, subsequent encounter (principal); J44.9 Chronic obstructive pulmonary disease, unspecified; M19.90 Unspecified osteoarthritis, unspecified site; F32.9 Major depressive disorder, single episode, unspecified; I10 Essential (primary) hypertension; K21.9 Gastro-esophageal reflux disease without esophagitis; E66.9 Obesity, unspecified; Z68.41 Body mass index [BMI] 40.0-44.9, adult; Z79.82 Long term (current) use of aspirin; Z89.611 Acquired absence of right leg above knee; Z89.612 Acquired absence of left leg above knee; Y83.8 Other surgical procedures as the cause of abnormal reaction of the patient, or of later complication, without mention of misadventure at the time of the procedure | CPT/HCPCS: 99213 ==

== ENCOUNTER 2019-03-07 18:03 | Emergency (ER) | payer MEDICAID, OTHER ==
[~2019-03-07] VITALS: Ht 157.5 cm; Wt 89.4 kg
[~2019-03-07 18:03] MED LIST changes: +ACYC800T PO; +BENZ-8 PO; -HYDR-2758 PO; +HYDR-2761 PO; -HYDR-2766 PO; +HYDR-2769 PO; +HYDR-3135 PO; -HYDR-963 PO; +IPRA4AER IH; +LACT1CAP19 PO; +LEVO500T59 PO; -LINE600T PO; +LINE600T12 PO; +METR-34 PO; -METR500T8 PO; +NYST15PO9 TP; +OXYB5TAB10 PO; -OXYB5TAB7 PO; +OXYC1TAB15 PO; -OXYC30TA PO; +OXYC30TA3 PO; -PANT40TA5 PO; +PANT40TA77 PO; +SOLI10TA2 PO; +TAMS0.4C97 PO; +TRAM50TA PO; +TRAZ150T49 PO
[2019-03-07 18:58] LABS: BILIRUBIN,URINE NEGATIVE (NEG); CLARITY,URINE CLEAR; COLOR,URINE YELLOW; NITRITE,URINE POSITIVE (NEG); PROTEIN,URINE NEGATIVE (NEG-TRACE); UROBILINOGEN,URINE 0.2 mg/dL (0.2 mg/dL)
--- NOTE | 2019-03-07 19:04 | PHYS DOC ---
Past Medical History Past Medical History: COPD, Diabetes-Type II, GERD, Hypertension, MRSA, Other Additional Past Medical Histor: "bladder problems", HYPERKALEMIA, [place] B[place]; right BKA Past Surgical History: Appendectomy, Cholecystectomy, Colectomy, Tonsillectomy, Other Additional Past Surgical Histo: R BKA, hernia Alcohol Use: None Drug Use: None Adult General Chief Complaint Chief Complaint: MECHANICAL FALL HPI HPI Patient is a 68 year old female who presents to the ED with a chief complaint of a mechanical fall. Patient states that she had a fall yesterday secondary to left knee pain and ankle pain. Patient does have a right BKA. Family called and stated that patient was not feeling too well today with subjective fever and urinary incontinence. Patient states that she has a history of arthritis in the left knee. Patient states that the fall occurred at home. Patient denies hitting her head. Patient denies loss of consciousness. Review of Systems Review of Systems Constitutional: Patient complains of subjective fevers Eyes: Denies change in visual acuity, redness, or eye pain [] HENT: Denies nasal congestion or sore throat [] Respiratory: Denies cough or shortness of breath [] Cardiovascular: Patient denies chest pain GI: Denies abdominal pain, nausea, vomiting, bloody stools or diarrhea [] : Patient complains of urinary incontinence Musculoskeletal: Patient complains of pain in her left knee and left ankle Integument: Wound in the scars of the right BKA Neurologic: Denies headache, focal weakness or sensory changes [] Endocrine: Denies polyuria or polydipsia [] All other systems were reviewed and found to be within normal limits, except as documented in this note. Current Medications Current Medications Current Medications Medications (Trade) Dose Ordered Sig/Haim Start Time Stop Time Status Last Admin Dose Admin Bacitracin (Bacitracin Zinc Oint Pkt) 1 pkt 1X ONCE 03/07/19 22:00 03/07/19 22:01 DC 03/07/19 22:00 1 PKT Ceftriaxone Sodium (Rocephin) 1 gm 1X ONCE 03/07/19 21:00 03/07/19 21:01 DC 03/07/19 20:48 1 GM Allergies Allergies Allergies Coded Allergies Type Severity Reaction Last Updated Verified codeine Allergy Intermediate TOLERATES MORPHINE 01/07/17 Yes meperidine Adverse Reaction Intermediate Nausea and Vomiting 01/07/17 Yes Physical Exam Physical Exam Constitutional: Well developed, well nourished, no acute distress, non-toxic appearance. [] HENT: Normocephalic, atraumatic, bilateral external ears normal, oropharynx moist, no oral exudates, nose normal. [] Eyes: PERRLA, EOMI, conjunctiva normal, no discharge. [] Cardiovascular:Heart rate regular rhythm, no murmur [] Lungs & Thorax: Bilateral breath sounds clear to auscultation [] Abdomen: Soft, no tenderness, no masses, no pulsatile masses. [] Extremities: Patient has right BKA. Small 0.5 cm wound that is superficial in the scars of the right BKA. Patient is complaining of pain in her left knee and left ankle. Neurovascularly intact in the left lower extremity. Neurologic: Alert and oriented X 3, normal motor function, normal sensory function, no focal deficits noted. [] Psychologic: Affect normal, judgement normal, mood normal. [] Current Patient Data Vital Signs Vital Signs Date Time Temp Pulse Resp B/P (MAP) Pulse Ox O2 Delivery O2 Flow Rate FiO2 03/07/19 22:09 78 16 93 03/07/19 18:03 99.4 176/94 (121) Room Air 99.4 Lab Values Laboratory Tests Test 03/07/19 18:49 03/07/19 19:17 03/07/19 19:35 Urine Collection Type U cath Urine Color Yellow Urine Clarity Clear Urine pH 6.0 Urine Specific [place] 1.020 Urine Protein Negative mg/dL (NEG-TRACE) Urine Glucose (UA) Negative mg/dL (NEG) Urine Ketones (Stick) Negative mg/dL (NEG) Urine Blood Trace (NEG) Urine Nitrite Positive (NEG) Urine Bilirubin Negative (NEG) Urine Urobilinogen Dipstick 0.2 mg/dL (0.2 mg/dL) Urine Leukocyte Esterase Large (NEG) Urine RBC 1-2 /HPF (0-2) Urine WBC Tntc /HPF (0-4) Urine Squamous Epithelial Cells Few /LPF Urine Bacteria Moderate /HPF (0-FEW) Sodium Level 141 mmol/L (136-145) Potassium Level 4.4 mmol/L (3.5-5.1) Chloride Level 106 mmol/L (98-107) Carbon Dioxide Level 26 mmol/L (21-32) Anion Gap 9 (6-14) Blood Urea Nitrogen 19 mg/dL (7-20) Creatinine 1.1 mg/dL (0.6-1.0) H Estimated GFR (Cockcroft-Gault) 49.4 BUN/Creatinine Ratio 17 (6-20) Glucose Level 103 mg/dL (70-99) H Calcium Level 9.0 mg/dL (8.5-10.1) Total Bilirubin 0.9 mg/dL (0.2-1.0) Aspartate Amino Transferase (AST) 23 U/L (15-37) Alanine Aminotransferase (ALT) 8 U/L (14-59) L Alkaline Phosphatase 81 U/L (46-116) Total Protein 7.8 g/dL (6.4-8.2) Albumin 3.1 g/dL (3.4-5.0) L Albumin/Globulin Ratio 0.7 (1.0-1.7) L White Blood Count 9.2 x10^3/uL (4.0-11.0) Red Blood Count 4.44 x10^6/uL (3.50-5.40) Hemoglobin 13.4 g/dL (12.0-15.5) Hematocrit 40.2 % (36.0-47.0) Mean Corpuscular Volume 91 fL (79-100) Mean Corpuscular Hemoglobin 30 pg (25-35) Mean Corpuscular Hemoglobin Concent 33 g/dL (31-37) Red Cell Distribution Width 13.8 % (11.5-14.5) Platelet Count 170 x10^3/uL (140-400) Neutrophils (%) (Auto) 67 % (31-73) Lymphocytes (%) (Auto) 23 % (24-48) L Monocytes (%) (Auto) 8 % (0-9) Eosinophils (%) (Auto) 1 % (0-3) Basophils (%) (Auto) 1 % (0-3) Neutrophils # (Auto) 6.1 x10^3/uL (1.8-7.7) Lymphocytes # (Auto) 2.1 x10^3/uL (1.0-4.8) Monocytes # (Auto) 0.7 x10^3/uL (0.0-1.1) Eosinophils # (Auto) 0.1 x10^3/uL (0.0-0.7) Basophils # (Auto) 0.1 x10^3/uL (0.0-0.2) Laboratory Tests 03/07/19 19:35 Laboratory Tests 03/07/19 19:17 EKG EKG [] Radiology/Procedures Radiology/Procedures Ordered x-ray of the left knee and left ankle.[] Impressions: X-ray showed no acute fracture of the left knee and left ankle. Course & Med Decision Making Course & Med Decision Making Pertinent Labs and Imaging studies reviewed. (See chart for details) Ordered labs, UA, x-ray of the left knee and left ankle. Labs are within normal limits. UA shows that patient has UTI. Imaging is negative for acute fractures. Pt is given Rocephin in ED. Discussed results and plan of care with patient. Patient will be treated with oral antibiotics. Discussed results and plan of care with patient. Patient is instructed to follow up with PCP in one to 2 days. Appropriate discharge instructions given to patient to return to the ED or to seek immediate medical evaluation. Dragon Disclaimer Dragon Disclaimer This electronic medical record was generated, in whole or in part, using a voice recognition dictation system. Departure Departure Impression: Primary Impression: UTI (urinary tract infection) Additional Impression: Leg pain, left Disposition: 01 HOME, SELF-CARE Condition: STABLE Referrals: Yao HEATON MD (PCP) Patient Instructions: Combined Knee Ligament Sprain-SportsMed Scripts Nitrofurantoin Macrocrystal (NITROFURANTOIN) 100 Mg Capsule 1 CAP PO BID for UTI for 10 Days, #20 CAP Prov: IRAIDA REINOSO DO 03/07/19 Problem Qualifiers Primary Impression: UTI (urinary tract infection) Urinary tract infection type: acute cystitis Hematuria presence: without hematuria Qualified Codes: N30.00 - Acute cystitis without hematuria IRAIDA REINOSO DO Mar 07, 2019 19:04
[2019-03-07 19:15] LABS: BACTERIA,URINE MODERATE /HPF (0-FEW); SQUAMOUS EPITHELIAL CELL,UR FEW /LPF; WBC,URINE TNTC /HPF (0-4)
[2019-03-07 19:34] LABS: CREATININE 1.1 mg/dL (0.6-1.0); GFR 49.4; POTASSIUM 4.4 mmol/L (3.5-5.1)
[2019-03-07 19:40] LABS: ALBUMIN 3.1 g/dL (3.4-5.0); ALBUMIN/GLOBULIN RATIO 0.7 (1.0-1.7); TOTAL BILIRUBIN 0.9 mg/dL (0.2-1.0); TOTAL PROTEIN 7.8 g/dL (6.4-8.2)
[2019-03-07 19:46] LABS: BASO # 0.1 x10^3/uL (0.0-0.2); BASO % 1 % (0-3); EOS # 0.1 x10^3/uL (0.0-0.7); EOS % 1 % (0-3); HEMATOCRIT 40.2 % (36.0-47.0); HEMOGLOBIN 13.4 g/dL (12.0-15.5); LYMPH # 2.1 x10^3/uL (1.0-4.8); LYMPH % 23 % (24-48); MEAN CORPUSCULAR HEMOGLOBIN 30 pg (25-35); MEAN CORPUSCULAR HGB CONC 33 g/dL (31-37); MEAN CORPUSCULAR VOLUME 91 fL (79-100); MONO # 0.7 x10^3/uL (0.0-1.1); MONO % 8 % (0-9); NEUT # 6.1 x10^3/uL (1.8-7.7); NEUT % 67 % (31-73); PLATELET COUNT 170 x10^3/uL (140-400); RED BLOOD COUNT 4.44 x10^6/uL (3.50-5.40); RED CELL DISTRIBUTION WIDTH 13.8 % (11.5-14.5); WHITE BLOOD COUNT 9.2 x10^3/uL (4.0-11.0)
[2019-03-07] MEDS ORDERED: cefTRIAXone IV Push 1 GM VIAL. IVP ONE (21:00)
--- NOTE | 2019-03-07 21:00 | RAD ---
Three-view left ankle radiographs 03/07/2019 CLINICAL HISTORY: Fall with injury to the left ankle. AP, lateral and oblique digital radiographs of the left ankle were obtained. Soft tissue swelling is seen adjacent to the lateral malleolus of the left ankle. The left ankle mortise is intact. No fracture or dislocation of the left ankle is seen. Mild to moderate degenerative changes are seen involving the left ankle joint. Moderate enthesophyte formation is seen involving the plantar aspect of the posterior left calcaneus. Calcification of the left anterior tibial artery is noted. IMPRESSION: No fracture or dislocation of the left ankle is seen. Electronically signed by: Joel Ramos MD (03/07/2019 8:57 PM) [facility]
--- NOTE | 2019-03-07 21:01 | RAD ---
Three-view left knee radiographs 03/07/2019 CLINICAL HISTORY: Left knee pain post fall. AP, lateral and oblique digital radiographs of the left knee were obtained. No fracture or dislocation of the left knee is seen. Moderate to severe degenerative changes are seen involving involving all 3 compartments of the left knee. These consist of joint compartment narrowing, subchondral sclerosis and associated osteophyte formation. This particularly involves the medial and patellofemoral compartments. IMPRESSION: No fracture or dislocation of the left knee is seen. Electronically signed by: Joel Ramos MD (03/07/2019 8:59 PM) [facility]
[2019-03-07] MEDS ORDERED: BACITRACIN TOPICAL OINT PACKET. TP ONE (22:00)
[2019-03-07] MEDS ORDERED: NITR100C PO (22:03)
[2019-03-07 22:09] VITALS: BP 129/67
== END 2019-03-07 22:57 | disposition home or self-care (01) ==
LOC: ER 18:03
DX: N30.00 Acute cystitis without hematuria (principal); M25.562 Pain in left knee; M25.572 Pain in left ankle and joints of left foot; Z88.1 Allergy status to other antibiotic agents; Z88.5 Allergy status to narcotic agent; G89.11 Acute pain due to trauma; J44.9 Chronic obstructive pulmonary disease, unspecified; E11.9 Type 2 diabetes mellitus without complications; K21.9 Gastro-esophageal reflux disease without esophagitis; I10 Essential (primary) hypertension; Z90.49 Acquired absence of other specified parts of digestive tract; Z90.89 Acquired absence of other organs; W18.39XA Other fall on same level, initial encounter; Y93.89 Activity, other specified; Y92.89 Other specified places as the place of occurrence of the external cause; Y99.8 Other external cause status
CPT/HCPCS: 36415; 73562; 73610; 80053; 81001; 85025; 87086; 96374; 99285; J0696

== ENCOUNTER 2019-03-14 21:07 | Inpatient (IN) | payer MEDICAID ==
[~2019-03-14] VITALS: Ht 157.5 cm; Wt 93.2 kg
[~2019-03-14 21:07] MED LIST changes: +NITR100C PO
[2019-03-14 21:58] LABS: BASO # 0.1 x10^3/uL (0.0-0.2); BASO % 1 % (0-3); EOS # 0.3 x10^3/uL (0.0-0.7); EOS % 3 % (0-3); HEMATOCRIT 37.1 % (36.0-47.0); HEMOGLOBIN 12.6 g/dL (12.0-15.5); LYMPH # 2.7 x10^3/uL (1.0-4.8); LYMPH % 28 % (24-48); MEAN CORPUSCULAR HEMOGLOBIN 30 pg (25-35); MEAN CORPUSCULAR HGB CONC 34 g/dL (31-37); MEAN CORPUSCULAR VOLUME 90 fL (79-100); MONO # 0.8 x10^3/uL (0.0-1.1); MONO % 8 % (0-9); NEUT # 5.7 x10^3/uL (1.8-7.7); NEUT % 60 % (31-73); PLATELET COUNT 195 x10^3/uL (140-400); RED BLOOD COUNT 4.14 x10^6/uL (3.50-5.40); RED CELL DISTRIBUTION WIDTH 13.5 % (11.5-14.5); WHITE BLOOD COUNT 9.5 x10^3/uL (4.0-11.0)
[2019-03-14 22:03] LABS: CALCIUM 8.6 mg/dL (8.5-10.1); CREATININE 0.9 mg/dL (0.6-1.0); GFR 62.3; POTASSIUM 4.1 mmol/L (3.5-5.1)
[2019-03-14 22:09] LABS: ALBUMIN/GLOBULIN RATIO 0.8 (1.0-1.7); TOTAL BILIRUBIN 0.6 mg/dL (0.2-1.0)
[2019-03-14 22:24] LABS: BILIRUBIN,URINE NEGATIVE (NEG); CLARITY,URINE CLOUDY; COLOR,URINE YELLOW; NITRITE,URINE NEGATIVE (NEG); PH,URINE 7.5; PROTEIN,URINE NEGATIVE (NEG-TRACE); UROBILINOGEN,URINE 0.2 mg/dL (0.2 mg/dL)
[2019-03-14 22:32] LABS: BACTERIA,URINE FEW /HPF (0-FEW); RBC,URINE 0 /HPF (0-2); SQUAMOUS EPITHELIAL CELL,UR OCC /LPF; YEAST,URINE PRESENT /HPF
[2019-03-14 22:33] LABS: HYALINE CASTS, URINE OCCASIONAL /HPF
[2019-03-14] MEDS ORDERED: CONTRAST GIVEN. MC PRN (22:45)
[2019-03-14] MEDS ORDERED: IOHEXOL 300 MG/ML 100ML VIAL. IV ONE (23:00)
[2019-03-14] MEDS ORDERED: IV NORMAL SALINE 1000ML BAG 1,000 ML IV ONE (23:00)
--- NOTE | 2019-03-14 23:20 | RAD ---
EXAM: CT ABDOMEN/PELVIS WITHOUT CONTRAST. HISTORY: Abdominal pain, diarrhea. TECHNIQUE: Computed tomography of the abdomen and pelvis was performed without intravenous contrast. COMPARISON: 04/29/2018. FINDINGS: Lung windows through the visualized portions of the bases reveal mild infiltrates or atelectasis in the right lower lobe. An ill-defined nodular focus posteriorly in the right lower lobe measures 1.7 cm and is likely more infiltrate. There is mild atelectasis in the left base. Bone windows reveal no suspicious lesions. The gallbladder is surgically absent. The liver, pancreas, adrenal glands and spleen are unremarkable without contrast. There are no renal or ureteral calculi. There are no suspicious renal lesions without contrast. There are no pathologically enlarged lymph nodes. There are changes of mesh repair of the midline and right upper quadrant abdominal wall. There is diastases of the rectus muscles containing multiple nonobstructed loops of small bowel inferior to the mesh repair. There is no evidence of appendicitis. Fluid throughout the distal colon is consistent with diarrhea. IMPRESSION: 1. Findings consistent with diarrhea. No cause for acute pain is identified. 2. Diastases of the rectus muscles inferior to mesh repair, containing multiple nonobstructed loops of small bowel. 3. Mild infiltrates in the right lower lobe most likely reflect pneumonitis. A 1.7 cm right lower lobe nodule is likely infiltrate. Follow-up could be performed in 3 months if the diagnosis remains unclear. *One or more of the following individualized dose reduction techniques were utilized for this examination: 1. Automated exposure control. 2. Adjustment of the mA and/or kV according to patient size. 3. Use of iterative reconstruction technique. Electronically signed by: Flash Sidhu MD (03/14/2019 11:17 PM) [facility]
--- NOTE | 2019-03-15 00:29 | PHYS DOC ---
Past Medical History Past Medical History: COPD, Diabetes-Type II, GERD, Hypertension, MRSA, Other Additional Past Medical Histor: "bladder problems", HYPERKALEMIA, [place]; right AKA Past Surgical History: Appendectomy, Cholecystectomy, Colectomy, Tonsillectomy, Other Additional Past Surgical Histo: R AKA, hernia Alcohol Use: None Drug Use: None Adult General Chief Complaint Chief Complaint: GI PROBLEM HPI HPI Patient is a 68 year old female presenting to the ED the chief complaint of diarrhea. Patient states that she is at over 20 bouts of diarrhea since yesterday. Patient states that she was recently seen on March 07 for a fall with history of antibiotics for UTI. Patient states that the area around her buttocks is excoriated due to the diarrhea. Review of Systems Review of Systems Constitutional: Denies fever or chills [] HENT: Denies nasal congestion or sore throat [] Respiratory: Denies cough or shortness of breath [] Cardiovascular: Denies chest pain GI: Complains of diarrhea and diffuse abdominal cramps : Denies dysuria or hematuria [] Musculoskeletal: Denies back pain or joint pain [] All other systems were reviewed and found to be within normal limits, except as documented in this note. Current Medications Current Medications Current Medications Medications (Trade) Dose Ordered Sig/Haim Start Time Stop Time Status Last Admin Dose Admin Info (CONTRAST GIVEN -- Rx MONITORING) 1 each PRN DAILY PRN 03/14/19 22:45 03/16/19 22:44 Iohexol (Omnipaque 300 Mg/ml) 75 ml 1X ONCE 03/14/19 23:00 03/14/19 23:01 DC Sodium Chloride 1,000 ml @ 100 mls/hr Q10H 03/15/19 00:24 03/16/19 00:23 UNV Allergies Allergies Allergies Coded Allergies Type Severity Reaction Last Updated Verified codeine Allergy Intermediate TOLERATES MORPHINE 01/07/17 Yes meperidine Adverse Reaction Intermediate Nausea and Vomiting 01/07/17 Yes Physical Exam Physical Exam Constitutional: Well developed, well nourished, no acute distress, non-toxic appearance. [] HENT: Normocephalic, atraumatic Neck: Normal range of motion, no tenderness, supple, no stridor. [] Cardiovascular:Heart rate regular rhythm Lungs & Thorax: Bilateral breath sounds clear to auscultation [] Abdomen: Bowel sounds normal, soft, no tenderness Skin: Warm, dry, no erythema, no rash. [] Back: No tenderness, no CVA tenderness. [] Extremities: Patient has right BKA Neurologic: Alert and oriented X 3 Current Patient Data Vital Signs Vital Signs Date Time Temp Pulse Resp B/P (MAP) Pulse Ox O2 Delivery O2 Flow Rate FiO2 03/14/19 21:37 60 14 190/97 (128) 93 Room Air 03/14/19 21:07 99.0 99.0 Lab Values Laboratory Tests Test 03/14/19 21:25 03/14/19 22:15 White Blood Count 9.5 x10^3/uL (4.0-11.0) Red Blood Count 4.14 x10^6/uL (3.50-5.40) Hemoglobin 12.6 g/dL (12.0-15.5) Hematocrit 37.1 % (36.0-47.0) Mean Corpuscular Volume 90 fL (79-100) Mean Corpuscular Hemoglobin 30 pg (25-35) Mean Corpuscular Hemoglobin Concent 34 g/dL (31-37) Red Cell Distribution Width 13.5 % (11.5-14.5) Platelet Count 195 x10^3/uL (140-400) Neutrophils (%) (Auto) 60 % (31-73) Lymphocytes (%) (Auto) 28 % (24-48) Monocytes (%) (Auto) 8 % (0-9) Eosinophils (%) (Auto) 3 % (0-3) Basophils (%) (Auto) 1 % (0-3) Neutrophils # (Auto) 5.7 x10^3/uL (1.8-7.7) Lymphocytes # (Auto) 2.7 x10^3/uL (1.0-4.8) Monocytes # (Auto) 0.8 x10^3/uL (0.0-1.1) Eosinophils # (Auto) 0.3 x10^3/uL (0.0-0.7) Basophils # (Auto) 0.1 x10^3/uL (0.0-0.2) Sodium Level 141 mmol/L (136-145) Potassium Level 4.1 mmol/L (3.5-5.1) Chloride Level 106 mmol/L (98-107) Carbon Dioxide Level 29 mmol/L (21-32) Anion Gap 6 (6-14) Blood Urea Nitrogen 15 mg/dL (7-20) Creatinine 0.9 mg/dL (0.6-1.0) Estimated GFR (Cockcroft-Gault) 62.3 BUN/Creatinine Ratio 17 (6-20) Glucose Level 95 mg/dL (70-99) Calcium Level 8.6 mg/dL (8.5-10.1) Total Bilirubin 0.6 mg/dL (0.2-1.0) Aspartate Amino Transferase (AST) 26 U/L (15-37) Alanine Aminotransferase (ALT) 7 U/L (14-59) L Alkaline Phosphatase 60 U/L (46-116) Total Protein 7.0 g/dL (6.4-8.2) Albumin 3.0 g/dL (3.4-5.0) L Albumin/Globulin Ratio 0.8 (1.0-1.7) L Urine Collection Type U cath Urine Color Yellow Urine Clarity Cloudy Urine pH 7.5 Urine Specific [place] 1.015 Urine Protein Negative mg/dL (NEG-TRACE) Urine Glucose (UA) Negative mg/dL (NEG) Urine Ketones (Stick) Negative mg/dL (NEG) Urine Blood Negative (NEG) Urine Nitrite Negative (NEG) Urine Bilirubin Negative (NEG) Urine Urobilinogen Dipstick 0.2 mg/dL (0.2 mg/dL) Urine Leukocyte Esterase Small (NEG) Urine RBC 0 /HPF (0-2) Urine WBC 5-10 /HPF (0-4) Urine Squamous Epithelial Cells Occ /LPF Urine Bacteria Few /HPF (0-FEW) Urine Hyaline Casts Occasional /HPF Urine Mucus Mod /LPF Urine Yeast Present /HPF Laboratory Tests 03/14/19 21:25 Laboratory Tests 03/14/19 21:25 EKG EKG [] Radiology/Procedures Radiology/Procedures Ordered CT of the abdomen and pelvis without contrast Impressions: CT does not show any acute disease. Course & Med Decision Making Course & Med Decision Making Pertinent Labs and Imaging studies reviewed. (See chart for details) Labs are within normal limits. UA does not show UTI. CT does not show any acute disease. Patient's skin around the buttock region is excoriated. Barrier cream applied. Patient had one bout of diarrhea and liquid diarrhea in the ED. Patient is given a liter of IV fluids. C. difficile and stool cultures ordered. Patient will be admitted for further evaluation and treatment. Discussed results and plan of care with patient. Also discussed results and plan of care with family by phone. Dragon Disclaimer Dragon Disclaimer This electronic medical record was generated, in whole or in part, using a voice recognition dictation system. Departure Departure Impression: Primary Impression: Intractable diarrhea Disposition: ADMITTED INPATIENT Condition: IMPROVED Referrals: Yao HEATON MD (PCP) IRAIDA REINOSO DO Mar 15, 2019 00:29
[2019-03-15] MEDS: IV NORMAL SALINE 1000ML BAG 1,000 ML IV SCH ×2 (01:00→12:20)
[2019-03-15 03:49] VITALS: BP 185/90
[2019-03-15] MEDS ORDERED: MORPHINE SULFATE 2 MG/ML VIAL. IV PRN (06:00)
[2019-03-15] MEDS ORDERED: ONDANSETRON PF 4 MG/2 ML VIAL. IVP PRN (06:00)
[2019-03-15] MEDS ORDERED: traMADol 50 MG TABLET PO PRN (06:15)
[2019-03-15 07:15] VITALS: BP 194/95
[2019-03-15] MEDS: LISINOPRIL 10 MG TABLET PO SCH (07:55)
[2019-03-15] MEDS: OXYBUTYNIN CHLORIDE 5 MG TABLET PO SCH ×3 (07:55→20:14)
[2019-03-15] MEDS: ENOXAPARIN 40 MG/0.4 ML SYRINGE. SQ SCH (07:56)
[2019-03-15] MEDS ORDERED: FLU VAX QS 2019-20 (36MOS+)/PF 0.5 ML SYRINGE. VAX IM ONE (09:00)
[2019-03-15] MEDS ORDERED: ZINC OXIDE 20% TOPICAL OINTMENT 28GM TUBE. TP PRN (09:00)
--- NOTE | 2019-03-15 10:08 | NUR ---
verified with patient's daughter, Viky, ([phone]), that patient has already received flu vaccine this flu season.
--- NOTE | 2019-03-15 10:45 | NUR ---
IP: patient has significant history of c diff with current specimen pending. Requires contact + precautions.
--- NOTE | 2019-03-15 10:55 | HP ---
ADMIT DATE: 03/15/2019 CHIEF COMPLAINT: Diarrhea. HISTORY OF PRESENT ILLNESS: The patient is a pleasant middle-aged female who was treated for a recent UTI on 03/07. Since then, she has been developing some diarrhea. Yesterday, she had over 20 bouts of diarrhea. Clinically, she seems like she may have C. diff, but interestingly her white count is normal. I discussed the case with the ER physician. We are going to admit the patient, give her IV fluids and consult GI and Infectious Disease. PAST MEDICAL HISTORY: Recent urinary tract infection, COPD, diabetes, hypertension, hyperlipidemia, GERD, MRSA, bladder problems, hyperkalemia, hard of hearing, right onvjk-lxd-[id number] amputation, appendectomy, cholecystectomy, colectomy, tonsillectomy and hernia repair. ALLERGIES: CODEINE AND MEPERIDINE. FAMILY HISTORY: Diabetes. SOCIAL HISTORY: She quit smoking. No drinking or drugs. MEDICATIONS: Reviewed, please refer to the MRAD. REVIEW OF SYSTEMS: GENERAL: No history of weight change, weakness or fevers. SKIN: No bruising, hair changes or rashes. EYES: No blurred, double or loss of vision. NOSE AND THROAT: No history of nosebleeds, hoarseness or sore throat. HEART: No history of palpitations, chest pain or shortness of breath on exertion. LUNGS: Denies cough, hemoptysis, wheezing or shortness of breath. GASTROINTESTINAL: She complains of abdominal pain and diarrhea. GENITOURINARY: No history of frequency, urgency, hesitancy or nocturia. NEUROLOGIC: Denies history of numbness, tingling, tremor or weakness. PSYCHIATRIC: No history of panic, anxiety or depression. ENDOCRINE: No history of heat or cold intolerance, polyuria or polydipsia. EXTREMITIES: Denies muscle weakness, joint pain, pain on walking or stiffness. PHYSICAL EXAMINATION: HEENT: sounds. EXTREMITIES: She has a right afeum-sox-dqtg amputation. ABDOMEN: She has decreased bowel sounds with a, soft or weakness abdomen. PHYSICAL EXAMINATION: VITALS: Within normal limits and are stable. GENERAL: No apparent distress. Alert and oriented. HEENT: Head is normocephalic, atraumatic, pupils were equally round and reactive to light and accommodation. NECK: Supple, no JVD, no thyromegaly was noted. LUNGS: Clear to auscultation in all lung garibay without rhonchi or wheezing. HEART: RRR, S1, S2 present. Peripheral pulses intact, no obvious murmurs were noted. ABDOMEN: She has decreased bowel sounds with a soft, but tender abdomen. EXTREMITIES: She a right qycty-cpk-yaex amputation. NEUROLOGIC: Normal speech, normal tone. A & O x3, moves all extremities, no obvious focal deficits. PSYCHIATRIC: Normal affect, normal mood. Stable. SKIN: No ulcerations or rashes, good skin turgor, no jaundice. VASCULAR: Good capillary refill, neurovascular bundle appears to be intact. LABORATORY DATA: Hematology is normal. Electrolytes are normal. Urinalysis; small amount of leukocyte esterase with 5-10 white cells. ASSESSMENT AND PLAN: Diarrhea, mild urinary tract infection, in a middle-aged female with the above noted comorbidities. Regarding the UTI, I would like to start some Levaquin perhaps, but I do want to give her more C. difficile. So, we will await GI and Infectious Disease input, especially since her UTI is very mild with only a small amount of leukocyte esterase. IV fluids, DVT prophylaxis. Full code. Home meds, PT, OT. PROGNOSIS: Guarded. MICHELLE WRAY DO DR: LEODAN/amapro JOB#: [id number] / [id number]
[2019-03-15 11:10] VITALS: BP 168/89
--- NOTE | 2019-03-15 11:56 | PDOC ---
Infectious Disease Note Vital Sign Vital Signs Vital Signs Date Time Temp Pulse Resp B/P (MAP) Pulse Ox O2 Delivery O2 Flow Rate FiO2 03/15/19 11:10 97.9 61 20 168/89 (115) 95 Room Air 97.9 Labs Lab Laboratory Tests Test 03/14/19 21:25 03/14/19 22:15 White Blood Count 9.5 x10^3/uL (4.0-11.0) Red Blood Count 4.14 x10^6/uL (3.50-5.40) Hemoglobin 12.6 g/dL (12.0-15.5) Hematocrit 37.1 % (36.0-47.0) Mean Corpuscular Volume 90 fL (79-100) Mean Corpuscular Hemoglobin 30 pg (25-35) Mean Corpuscular Hemoglobin Concent 34 g/dL (31-37) Red Cell Distribution Width 13.5 % (11.5-14.5) Platelet Count 195 x10^3/uL (140-400) Neutrophils (%) (Auto) 60 % (31-73) Lymphocytes (%) (Auto) 28 % (24-48) Monocytes (%) (Auto) 8 % (0-9) Eosinophils (%) (Auto) 3 % (0-3) Basophils (%) (Auto) 1 % (0-3) Neutrophils # (Auto) 5.7 x10^3/uL (1.8-7.7) Lymphocytes # (Auto) 2.7 x10^3/uL (1.0-4.8) Monocytes # (Auto) 0.8 x10^3/uL (0.0-1.1) Eosinophils # (Auto) 0.3 x10^3/uL (0.0-0.7) Basophils # (Auto) 0.1 x10^3/uL (0.0-0.2) Sodium Level 141 mmol/L (136-145) Potassium Level 4.1 mmol/L (3.5-5.1) Chloride Level 106 mmol/L (98-107) Carbon Dioxide Level 29 mmol/L (21-32) Anion Gap 6 (6-14) Blood Urea Nitrogen 15 mg/dL (7-20) Creatinine 0.9 mg/dL (0.6-1.0) Estimated GFR (Cockcroft-Gault) 62.3 BUN/Creatinine Ratio 17 (6-20) Glucose Level 95 mg/dL (70-99) Calcium Level 8.6 mg/dL (8.5-10.1) Total Bilirubin 0.6 mg/dL (0.2-1.0) Aspartate Amino Transf (AST/SGOT) 26 U/L (15-37) Alanine Aminotransferase (ALT/SGPT) 7 U/L (14-59) Alkaline Phosphatase 60 U/L (46-116) Total Protein 7.0 g/dL (6.4-8.2) Albumin 3.0 g/dL (3.4-5.0) Albumin/Globulin Ratio 0.8 (1.0-1.7) Urine Collection Type U cath Urine Color Yellow Urine Clarity Cloudy Urine pH 7.5 Urine Specific [place] 1.015 Urine Protein Negative mg/dL (NEG-TRACE) Urine Glucose (UA) Negative mg/dL (NEG) Urine Ketones (Stick) Negative mg/dL (NEG) Urine Blood Negative (NEG) Urine Nitrite Negative (NEG) Urine Bilirubin Negative (NEG) Urine Urobilinogen Dipstick 0.2 mg/dL (0.2 mg/dL) Urine Leukocyte Esterase Small (NEG) Urine RBC 0 /HPF (0-2) Urine WBC 5-10 /HPF (0-4) Urine Squamous Epithelial Cells Occ /LPF Urine Bacteria Few /HPF (0-FEW) Urine Hyaline Casts Occasional /HPF Urine Mucus Mod /LPF Urine Yeast Present /HPF Objective Assessment Diarrhea ? UTI - POA recent proteus res to macrobid/quinolones/amp/Bactrim Pulm infiltrates H/o C-diff HTN Plan Plan of Care Given recent abx add po Vanc until C-diff ruled out Add Rocephin F/u labs/cults and C-diff Thank you # [phone] NAHUN CADENA MD Mar 15, 2019 11:56
[2019-03-15] MEDS: cefTRIAXone IV Push 1 GM VIAL. IVP SCH (12:20)
[2019-03-15] MEDS: VANCOMYCIN 125 MG/2.5 ML ORAL SOLUTION. PO SCH ×3 (12:20→20:14)
--- NOTE | 2019-03-15 13:09 | PDOC2 ---
GI CONSULT Reason For Consult: Diarrhea. ?C Diff? HPI: HPI: 68 y/o female who we have seen in the past. H/o recurrent diverticulitis s/p sigmoid resection and recurrent C Diff. Limited history - she is very hard of hearing. Currently alone in room - d/w nurse who says daughter reports she recently took antibiotics for LE "cellulitis." Now admitted w/ diarrhea. C Diff pending. Previous GI workup: Colonoscopy 07/2016 (to splenic flexure) by Dr. Connell: internal hemorrhoids, active diverticulitis in sigmoid colon w/ purulent drainage, poor prep. Barium enema 02/2011: sigmoid diverticulosis, moderately redundant colon. Colonoscopy 01/2011 (to hepatic flexure): sigmoid diverticulosis, non-bleeding internal hemorrhoids. Colonoscopy 2008 (to cecum) by Dr. Ruiz: adenomatous polyp in transverse colon, diverticulosis. Additionally had colonoscopies in 2004 (Dr. Christian) and 2000 (Dr. Neal). Treated by PCP in 2016 for + H. pylori lab test. EGD 01/[address] Connell: normal esophagus, gastritis, duodenal diverticulum. EGD [address] Ruiz: neg esophageal biopsies. EGD [address] Christian: antral biopsies neg for pathology. EGD [address] Neal: +H. pylori, was treated. S/p cholecystectomy. No liver or pancreas history. No NSAIDs. PMH: PMH: OA, GERD, diverticulitis, C Diff, HTN, CAD, UTI ventral hernia repair w/ mesh, right AKA (after knee replacement w/ subsequent MRSA infection), tonsillectomy, cholecystectomy, appendectomy, sigmoid resection FH: Family History: No pertinent hx Social History: ALCOHOL: none Drugs: None ROS: GEN: Denies fevers, chills, sweats HEENT: Denies blurred vision, sore throat CV: Denies chest pain RESP: Denies shortness of air, cough GI: Per HPI : Denies hematuria, dysuria ENDO: Denies weight changes NEURO: Denies confusion, dizziness MSK: Denies weakness, joint pain/swelling SKIN: Denies jaundice, pruritus Vitals: Vitals: Vital Signs Date Time Temp Pulse Resp B/P (MAP) Pulse Ox O2 Delivery O2 Flow Rate FiO2 03/15/19 11:10 97.9 61 20 168/89 (115) 95 Room Air 97.9 Labs: Labs: Laboratory Tests Test 03/14/19 21:25 03/14/19 22:15 White Blood Count 9.5 x10^3/uL (4.0-11.0) Red Blood Count 4.14 x10^6/uL (3.50-5.40) Hemoglobin 12.6 g/dL (12.0-15.5) Hematocrit 37.1 % (36.0-47.0) Mean Corpuscular Volume 90 fL (79-100) Mean Corpuscular Hemoglobin 30 pg (25-35) Mean Corpuscular Hemoglobin Concent 34 g/dL (31-37) Red Cell Distribution Width 13.5 % (11.5-14.5) Platelet Count 195 x10^3/uL (140-400) Neutrophils (%) (Auto) 60 % (31-73) Lymphocytes (%) (Auto) 28 % (24-48) Monocytes (%) (Auto) 8 % (0-9) Eosinophils (%) (Auto) 3 % (0-3) Basophils (%) (Auto) 1 % (0-3) Neutrophils # (Auto) 5.7 x10^3/uL (1.8-7.7) Lymphocytes # (Auto) 2.7 x10^3/uL (1.0-4.8) Monocytes # (Auto) 0.8 x10^3/uL (0.0-1.1) Eosinophils # (Auto) 0.3 x10^3/uL (0.0-0.7) Basophils # (Auto) 0.1 x10^3/uL (0.0-0.2) Sodium Level 141 mmol/L (136-145) Potassium Level 4.1 mmol/L (3.5-5.1) Chloride Level 106 mmol/L (98-107) Carbon Dioxide Level 29 mmol/L (21-32) Anion Gap 6 (6-14) Blood Urea Nitrogen 15 mg/dL (7-20) Creatinine 0.9 mg/dL (0.6-1.0) Estimated GFR (Cockcroft-Gault) 62.3 BUN/Creatinine Ratio 17 (6-20) Glucose Level 95 mg/dL (70-99) Calcium Level 8.6 mg/dL (8.5-10.1) Total Bilirubin 0.6 mg/dL (0.2-1.0) Aspartate Amino Transf (AST/SGOT) 26 U/L (15-37) Alanine Aminotransferase (ALT/SGPT) 7 U/L (14-59) Alkaline Phosphatase 60 U/L (46-116) Total Protein 7.0 g/dL (6.4-8.2) Albumin 3.0 g/dL (3.4-5.0) Albumin/Globulin Ratio 0.8 (1.0-1.7) Urine Collection Type U cath Urine Color Yellow Urine Clarity Cloudy Urine pH 7.5 Urine Specific [place] 1.015 Urine Protein Negative mg/dL (NEG-TRACE) Urine Glucose (UA) Negative mg/dL (NEG) Urine Ketones (Stick) Negative mg/dL (NEG) Urine Blood Negative (NEG) Urine Nitrite Negative (NEG) Urine Bilirubin Negative (NEG) Urine Urobilinogen Dipstick 0.2 mg/dL (0.2 mg/dL) Urine Leukocyte Esterase Small (NEG) Urine RBC 0 /HPF (0-2) Urine WBC 5-10 /HPF (0-4) Urine Squamous Epithelial Cells Occ /LPF Urine Bacteria Few /HPF (0-FEW) Urine Hyaline Casts Occasional /HPF Urine Mucus Mod /LPF Urine Yeast Present /HPF Allergies: Coded Allergies: codeine (Verified Allergy, Intermediate, TOLERATES MORPHINE, 01/07/17) TOLERATES MORPHINE meperidine (Verified Adverse Reaction, Intermediate, Nausea and Vomiting, 01/07/17) Medications: Current Medications Medications (Trade) Dose Ordered Sig/Haim Route PRN Reason Start Time Stop Time Status Last Admin Dose Admin Sodium Chloride 1,000 ml @ 1,000 mls/hr 1X ONCE IV 03/14/19 23:00 03/14/19 23:59 DC 03/14/19 23:00 Sodium Chloride 1,000 ml @ 100 mls/hr Q10H IV 03/15/19 01:00 03/15/19 12:52 DC 03/15/19 12:20 Enoxaparin Sodium (Lovenox 40mg Syringe) 40 mg Q24H SQ 03/15/19 09:00 03/15/19 07:56 Lisinopril (Prinivil) 10 mg DAILY PO 03/15/19 09:00 03/15/19 07:55 Oxybutynin Chloride (Ditropan) 5 mg [id number] PO 03/15/19 09:00 03/15/19 07:55 Vancomycin HCl (Vancomycin Oral Solution) 125 mg [id number] PO 03/15/19 13:00 03/15/19 12:20 Ceftriaxone Sodium (Rocephin) 1 gm Q24H IVP 03/15/19 12:00 03/15/19 12:20 Imaging: Imaging: CT A/P w/o contrast IMPRESSION: 1. Findings consistent with diarrhea. No cause for acute pain is identified. 2. Diastases of the rectus muscles inferior to mesh repair, containing multiple nonobstructed loops of small bowel. 3. Mild infiltrates in the right lower lobe most likely reflect pneumonitis. A 1.7 cm right lower lobe nodule is likely infiltrate. Follow-up could be performed in 3 months if the diagnosis remains unclear. PE: GEN: NAD HEENT: Atraumatic, PERRL LUNGS: CTAB HEART: RRR ABD: NABS, large/obese, soft, vaguely tender diffusely EXTREMITY: RAKA SKIN: no cellulitis NEURO/PSYCH: A & O 3, [place] A/P: A/P: Diarrhea H/o C Diff w/ recent antibiotic use CRC screen - colonoscopy to splenic flexure in 2017 Diverticular disease, s/p sigmoid resection -- On vanco per ID while awaiting C Diff confirmation. GIFTY PARKINSON Mar 15, 2019 13:09
--- NOTE | 2019-03-15 13:43 | NUR ---
SW following pt for dc planning. Chart reviewed. Pt lives at home with family. ID and GI following. SW will be available as needed.
[2019-03-15 15:04] VITALS: BP 159/76
[2019-03-15] MEDS ORDERED: IV NORMAL SALINE 1000ML BAG 1,000 ML IV SCH (16:00)
[2019-03-15 19:42] VITALS: BP 158/88
[2019-03-15] MEDS: LACTOBACILLUS RHAMNOSUS GG 1 CAPSULE. PO SCH (20:14)
[2019-03-15] MEDS: traZODone 50 MG TABLET. PO SCH (20:15)
[2019-03-15 23:33] VITALS: BP 151/84
--- NOTE | 2019-03-15 23:51 | CONS ---
DATE OF CONSULTATION: 03/15/2019 LOCATION: The patient's room is 663. REQUESTING PHYSICIAN: Dr. Bangura. REASON FOR CONSULTATION: Questionable C. diff. HISTORY OF PRESENT ILLNESS: The patient is a 68-year-old female, very poor historian, also very hard of hearing, does have a history of distant MRSA infection, history of previous C. diff colitis and urinary tract infections. She was seen in the Emergency Room at [facility] on 03/07/2019. At that time, she was diagnosed with urinary tract infection. Per the notes, she received a dose of vancomycin was discharged back on Macrobid. On the , she was brought to the Emergency Room with complaints of diarrhea. Apparently, she had over 20 bouts of diarrhea on the . She was brought today on the . Stools for C. diff has been collected. Urinalysis was collected as well. Does not look concerning for potential urinary tract infection. She underwent a CT scan of the abdomen and pelvis without contrast, showed there were findings consistent with diarrhea. Mild infiltrate in the right lower lobe and a diastasis of the rectus muscle inferior to the mesh containing multiple nonobstructive loops of small bowel. Currently, she is lying in bed. She appears comfortable. She was complaining of some diarrhea, but no gross pain. No gross shortness of air and no urinary symptoms. PAST MEDICAL HISTORY: Positive for sigmoid diverticulitis, history of recurrent Clostridium difficile, hypertension, gastroesophageal reflux disease, chronic anemia, osteoarthritis, urinary incontinence, history of urinary tract infections, most recently Proteus was resistant to ampicillin, quinolones, Macrobid and Bactrim. She has a history of a ventral hernia. PAST SURGICAL HISTORY: Positive for sigmoidectomy, ventral hernia repair with mesh, appendectomy, cholecystectomy, tonsillectomy. REVIEW OF SYSTEMS: Otherwise negative except for mentioned above. ALLERGIES: No known drug allergies. SOCIAL HISTORY: She is a nonsmoker. She is . ALLERGIES: LISTED CODEINE AND MEPERIDINE. FAMILY HISTORY: Noncontributory. She denies any ill contacts. CURRENT MEDICATIONS: Include lactobacillus, Prinivil, Ditropan, Ultram, Desyrel. PHYSICAL EXAMINATION: VITAL SIGNS: She has been afebrile, temperature 97.9, pulse 61, respirations 20, blood pressure 168/89, satting 95% on room air. CONSTITUTIONAL: She is lying in bed. She is cooperative. She is in no acute distress. She is hard of hearing. HEENT: Her pupils are status post cataract surgery. Oral cavity, pharynx is edentulous. NECK: Supple, no JVD. LUNGS: Clear to auscultation, no wheeze, no rhonchi. HEART: S1, S2. ABDOMEN: Soft, obese, nondistended, no guarding, no rebound. EXTREMITIES: Without clubbing or cyanosis. No gross edema. SKIN: Warm to touch without signs of rash. 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 No edema. NEUROLOGIC: She is alert and responsive. She is smiling. IV site is clean. LABORATORY DATA: White count 9.5, hemoglobin 12.6, platelets 195, neutrophils are 60, creatinine 0.9. Essentially normal liver function study tests. Glucose was 95. Urinalysis: small leukocyte esterase, 5-10 wbc's, nitrite was negative, few bacteria, occasional squamous cells. Radiology reviewed in history of present illness. IMPRESSION: 1. Diarrhea. 2. Questionable urinary tract infection present on admission with recent Proteus resistant to macrolides, quinolones, ampicillin, and Bactrim. 3. Pulmonary infiltrates. 4. History of Clostridium difficile. 5. Hypertension. RECOMMENDATIONS: Given her recent antibiotic exposure or history of C. diff, we will add p.o. vancomycin until C. diff is ruled out, we will add Rocephin based on her most recent urine culture collected on the . Follow up labs, cultures and C. diff. Thank you for asking me to participate in the patient's care. Should you have any further questions, please do not hesitate to contact me. NAHUN CADENA MD DR: ADRIENNE/amparo JOB#: [id number] / [id number] JESSICAD
[2019-03-16 03:06] VITALS: BP_SYST 169
[2019-03-16 06:42] LABS: CALCIUM 7.8 mg/dL (8.5-10.1); CREATININE 1.1 mg/dL (0.6-1.0); GFR 49.4; POTASSIUM 3.6 mmol/L (3.5-5.1)
[2019-03-16 06:43] LABS: BASO # 0.1 x10^3/uL (0.0-0.2); BASO % 1 % (0-3); EOS # 0.4 x10^3/uL (0.0-0.7); EOS % 5 % (0-3); HEMATOCRIT 35.1 % (36.0-47.0); HEMOGLOBIN 11.7 g/dL (12.0-15.5); LYMPH # 2.7 x10^3/uL (1.0-4.8); LYMPH % 33 % (24-48); MEAN CORPUSCULAR HEMOGLOBIN 30 pg (25-35); MEAN CORPUSCULAR HGB CONC 33 g/dL (31-37); MEAN CORPUSCULAR VOLUME 91 fL (79-100); MONO # 0.6 x10^3/uL (0.0-1.1); MONO % 8 % (0-9); NEUT # 4.3 x10^3/uL (1.8-7.7); NEUT % 53 % (31-73); PLATELET COUNT 186 x10^3/uL (140-400); RED BLOOD COUNT 3.86 x10^6/uL (3.50-5.40); RED CELL DISTRIBUTION WIDTH 14.2 % (11.5-14.5)
[2019-03-16 07:15] VITALS: BP 173/72
[2019-03-16] MEDS: LACTOBACILLUS RHAMNOSUS GG 1 CAPSULE. PO SCH ×2 (08:27→21:42)
[2019-03-16] MEDS: LISINOPRIL 10 MG TABLET PO SCH (08:27)
[2019-03-16] MEDS: OXYBUTYNIN CHLORIDE 5 MG TABLET PO SCH ×3 (08:27→21:42)
[2019-03-16] MEDS: VANCOMYCIN 125 MG/2.5 ML ORAL SOLUTION. PO SCH (08:27)
[2019-03-16] MEDS: ENOXAPARIN 40 MG/0.4 ML SYRINGE. SQ SCH (08:28)
--- NOTE | 2019-03-16 09:18 | PDOC ---
Infectious Disease Note Subjective Subjective C/o some nausea. No F/C/S/itch/SOA ROS ROS o/w neg Vital Sign Vital Signs Vital Signs Date Time Temp Pulse Resp B/P (MAP) Pulse Ox O2 Delivery O2 Flow Rate FiO2 03/16/19 08:27 66 173/72 03/16/19 07:15 98.7 18 95 Nasal Cannula 98.7 03/16/19 03:06 2.0 Physical Exam PHYSICAL EXAM CONSTITUTIONAL: She is lying in bed. She is cooperative. She is in no acute distress. She is hard of hearing. Appears comfortable HEENT: Her pupils are status post cataract surgery. Oral cavity, pharynx is edentulous. NECK: Supple, no JVD. LUNGS: Clear to auscultation, no wheeze, no rhonchi. HEART: S1, S2. ABDOMEN: Soft, obese, nondistended, no guarding, no rebound. EXTREMITIES: Without clubbing or cyanosis. No gross edema. SKIN: Warm to touch without signs of rash. 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 No edema. NEUROLOGIC: She is alert and responsive. She is smiling. IV site is clean. Labs Lab Laboratory Tests Test 03/16/19 03:44 White Blood Count 8.0 x10^3/uL (4.0-11.0) Red Blood Count 3.86 x10^6/uL (3.50-5.40) Hemoglobin 11.7 g/dL (12.0-15.5) Hematocrit 35.1 % (36.0-47.0) Mean Corpuscular Volume 91 fL (79-100) Mean Corpuscular Hemoglobin 30 pg (25-35) Mean Corpuscular Hemoglobin Concent 33 g/dL (31-37) Red Cell Distribution Width 14.2 % (11.5-14.5) Platelet Count 186 x10^3/uL (140-400) Neutrophils (%) (Auto) 53 % (31-73) Lymphocytes (%) (Auto) 33 % (24-48) Monocytes (%) (Auto) 8 % (0-9) Eosinophils (%) (Auto) 5 % (0-3) Basophils (%) (Auto) 1 % (0-3) Neutrophils # (Auto) 4.3 x10^3/uL (1.8-7.7) Lymphocytes # (Auto) 2.7 x10^3/uL (1.0-4.8) Monocytes # (Auto) 0.6 x10^3/uL (0.0-1.1) Eosinophils # (Auto) 0.4 x10^3/uL (0.0-0.7) Basophils # (Auto) 0.1 x10^3/uL (0.0-0.2) Sodium Level 143 mmol/L (136-145) Potassium Level 3.6 mmol/L (3.5-5.1) Chloride Level 108 mmol/L (98-107) Carbon Dioxide Level 26 mmol/L (21-32) Anion Gap 9 (6-14) Blood Urea Nitrogen 13 mg/dL (7-20) Creatinine 1.1 mg/dL (0.6-1.0) Estimated GFR (Cockcroft-Gault) 49.4 Glucose Level 66 mg/dL (70-99) Calcium Level 7.8 mg/dL (8.5-10.1) Objective Assessment Diarrhea - C-diff neg ? UTI - POA recent proteus res to macrobid/quinolones/amp/Bactrim Pulm infiltrates H/o C-diff HTN Plan Plan of Care D/c po Vanc with C-diff ruled out Cont Rocephin F/u labs/cults D/w nursing NAHUN CADENA MD Mar 16, 2019 09:18
--- NOTE | 2019-03-16 09:29 | PDOC ---
Subjective: Subjective: Eating some but has nausea. No vomiting. Objective: Objective: D/w staff - no stools overnight or this morning. Vital Signs: Vital Signs Date Time Temp Pulse Resp B/P (MAP) Pulse Ox O2 Delivery O2 Flow Rate FiO2 03/16/19 08:27 66 173/72 03/16/19 07:15 98.7 18 95 Nasal Cannula 98.7 03/16/19 03:06 2.0 Labs: Laboratory Tests Test 03/16/19 03:44 White Blood Count 8.0 x10^3/uL Red Blood Count 3.86 x10^6/uL Hemoglobin 11.7 g/dL Hematocrit 35.1 % Mean Corpuscular Volume 91 fL Mean Corpuscular Hemoglobin 30 pg Mean Corpuscular Hemoglobin Concent 33 g/dL Red Cell Distribution Width 14.2 % Platelet Count 186 x10^3/uL Neutrophils (%) (Auto) 53 % Lymphocytes (%) (Auto) 33 % Monocytes (%) (Auto) 8 % Eosinophils (%) (Auto) 5 % Basophils (%) (Auto) 1 % Neutrophils # (Auto) 4.3 x10^3/uL Lymphocytes # (Auto) 2.7 x10^3/uL Monocytes # (Auto) 0.6 x10^3/uL Eosinophils # (Auto) 0.4 x10^3/uL Basophils # (Auto) 0.1 x10^3/uL Sodium Level 143 mmol/L Potassium Level 3.6 mmol/L Chloride Level 108 mmol/L Carbon Dioxide Level 26 mmol/L Anion Gap 9 Blood Urea Nitrogen 13 mg/dL Creatinine 1.1 mg/dL Estimated GFR (Cockcroft-Gault) 49.4 Glucose Level 66 mg/dL Calcium Level 7.8 mg/dL PE: GEN: NAD LUNGS: CTAB HEART: RRR ABD: soft, vaguely tender NEURO/PSYCH: A & O 3, [place] A/P: Diarrhea w/ h/o C Diff w/ recent antibiotic use - better, C Diff negative, vanco stopped per ID Nausea, abd discomfort - several EGDs and colonoscopies in the past, s/p chol ecystectomy 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 Empiric PPI, monitor nausea. ROSMERY-BRANINE,GIFTY PA Mar 16, 2019 09:29
[2019-03-16 11:11] VITALS: BP 173/72
--- NOTE | 2019-03-16 11:29 | PDOC ---
[employer] PROGRESS NOTE Chief Complaint Chief Complaint Diarrhea History of Present Illness History of Present Illness Patient is a 68 year old female presenting to the ED the chief complaint of diarrhea. Patient states that she is at over 20 bouts of diarrhea since yesterday. Patient states that she was recently seen on March 07 for a fall with history of antibiotics for UTI. Patient states that the area around her buttocks is excoriated due to the diarrhea. Patient was seen and examined, discussed with RN, stating that the patient was found to be negative for C. Diff toxin. Currently awaiting further input from GI consult. Will arrange an evaluation for placement in a SNU. Vitals/I&O Vitals/I&O: Vital Signs Date Time Temp Pulse Resp B/P (MAP) Pulse Ox O2 Delivery O2 Flow Rate FiO2 03/16/19 11:11 98.1 66 18 173/72 (105) 95 Nasal Cannula 98.1 03/16/19 03:06 2.0 I & O 03/15/19 03/15/19 03/16/19 15:00 23:00 07:00 Intake Total 120 ml 240 ml Balance 120 ml 240 ml Physical Exam Physical Exam: CONSTITUTIONAL: She is lying in bed. She is cooperative. She is in no acute distress. She is hard of hearing. Appears comfortable HEENT: Her pupils are status post cataract surgery. Oral cavity, pharynx is edentulous. NECK: Supple, no JVD. LUNGS: Clear to auscultation, no wheeze, no rhonchi. HEART: S1, S2. ABDOMEN: Soft, obese, nondistended, no guarding, no rebound. EXTREMITIES: Without clubbing or cyanosis. No gross edema. SKIN: Warm to touch without signs of rash. 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 No edema. NEUROLOGIC: She is alert and responsive. She is smiling. IV site is clean. Lungs: Wheezing Labs Labs: Laboratory Tests Test 03/16/19 03:44 White Blood Count 8.0 x10^3/uL (4.0-11.0) Red Blood Count 3.86 x10^6/uL (3.50-5.40) Hemoglobin 11.7 g/dL (12.0-15.5) Hematocrit 35.1 % (36.0-47.0) Mean Corpuscular Volume 91 fL (79-100) Mean Corpuscular Hemoglobin 30 pg (25-35) Mean Corpuscular Hemoglobin Concent 33 g/dL (31-37) Red Cell Distribution Width 14.2 % (11.5-14.5) Platelet Count 186 x10^3/uL (140-400) Neutrophils (%) (Auto) 53 % (31-73) Lymphocytes (%) (Auto) 33 % (24-48) Monocytes (%) (Auto) 8 % (0-9) Eosinophils (%) (Auto) 5 % (0-3) Basophils (%) (Auto) 1 % (0-3) Neutrophils # (Auto) 4.3 x10^3/uL (1.8-7.7) Lymphocytes # (Auto) 2.7 x10^3/uL (1.0-4.8) Monocytes # (Auto) 0.6 x10^3/uL (0.0-1.1) Eosinophils # (Auto) 0.4 x10^3/uL (0.0-0.7) Basophils # (Auto) 0.1 x10^3/uL (0.0-0.2) Sodium Level 143 mmol/L (136-145) Potassium Level 3.6 mmol/L (3.5-5.1) Chloride Level 108 mmol/L (98-107) Carbon Dioxide Level 26 mmol/L (21-32) Anion Gap 9 (6-14) Blood Urea Nitrogen 13 mg/dL (7-20) Creatinine 1.1 mg/dL (0.6-1.0) Estimated GFR (Cockcroft-Gault) 49.4 Glucose Level 66 mg/dL (70-99) Calcium Level 7.8 mg/dL (8.5-10.1) Review of Systems Review of Systems: Patient reports difficulty hearing. Patient denies numbness and tingling. Assessment and Plan Assessmemt and Plan Problems Medical Problems: (1) Intractable diarrhea Status: Acute Assessment: Intractable diarrhea Plan: 1. Await further input from GI consult 2. Hope to discharge tomorrow if stable 3. discharge disposition pending 4. SNU evaluation 5. DVT prophylaxis 6. Full code 7. PT/OT Comment Review of Relevant I have reviewed the following items marcio (where applicable) has been applied. Medications: Current Medications Medications (Trade) Dose Ordered Sig/Haim Route PRN Reason Start Time Stop Time Status Last Admin Dose Admin Sodium Chloride 1,000 ml @ 100 mls/hr Q10H IV 03/15/19 16:00 03/16/19 01:59 DC 03/15/19 14:54 Trazodone HCl (Desyrel) 150 mg QHS PO 03/15/19 21:00 03/15/19 20:15 Vancomycin HCl (Vancomycin Oral Solution) 125 mg [id number] PO 03/15/19 13:00 03/16/19 09:18 DC 03/16/19 08:27 Ceftriaxone Sodium (Rocephin) 1 gm Q24H IVP 03/15/19 12:00 03/15/19 12:20 Lactobacillus Rhamnosus (Culturelle) 1 cap BID PO 03/15/19 21:00 03/16/19 08:27 MICHELLE WRAY III DO Mar 16, 2019 11:29
[2019-03-16] MEDS: cefTRIAXone IV Push 1 GM VIAL. IVP SCH (12:00)
[2019-03-16 15:07] VITALS: BP 152/71
[2019-03-16] MEDS: PANTOPRAZOLE 40 MG TABLET.DR. PO SCH (16:02)
--- NOTE | 2019-03-16 16:07 | NUR ---
MARINA following pt. PT/OT recommends SNU. MARINA spoke with pt's daughter, Viky, phone: [phone] via phone and discussed SNU, insurance coverage. Pt's daughter stated pt does not want to go to rehab and would like to return home. MARINA extensively discussed insurance benefits for SNU vs Rehab. Daughter states pt will not benefit from acute rehab because she does not do as much at home and uses a wheel chair at home. Per daughter, pt has been to [facility] but unsure regarding the year. MARINA discussed pt's increased changed regarding transfers but daughter believes home health might be beneficial and requested to Use [facility] . Per daughter, she was trying pt's PCP to order HH for pt prior to admission. MARINA phoned and faxed referral to [facility] . Discussed with RN and PT.
[2019-03-16 19:50] VITALS: BP 157/81
[2019-03-16] MEDS: traZODone 50 MG TABLET. PO SCH (21:42)
[2019-03-16 23:30] VITALS: BP 179/84
[2019-03-17] MEDS: ONDANSETRON ODT 4 MG TAB.RAPDIS. PO PRN ×2 (02:03→12:40)
[2019-03-17 03:54] VITALS: BP 175/87
[2019-03-17 05:54] LABS: BASO % 0 % (0-3); EOS # 0.3 x10^3/uL (0.0-0.7); EOS % 4 % (0-3); HEMATOCRIT 34.6 % (36.0-47.0); HEMOGLOBIN 11.9 g/dL (12.0-15.5); LYMPH # 2.9 x10^3/uL (1.0-4.8); LYMPH % 36 % (24-48); MEAN CORPUSCULAR HEMOGLOBIN 31 pg (25-35); MEAN CORPUSCULAR HGB CONC 34 g/dL (31-37); MEAN CORPUSCULAR VOLUME 90 fL (79-100); MONO # 0.7 x10^3/uL (0.0-1.1); MONO % 9 % (0-9); NEUT # 4.1 x10^3/uL (1.8-7.7); NEUT % 51 % (31-73); PLATELET COUNT 182 x10^3/uL (140-400); RED BLOOD COUNT 3.86 x10^6/uL (3.50-5.40); RED CELL DISTRIBUTION WIDTH 13.8 % (11.5-14.5); WHITE BLOOD COUNT 8.1 x10^3/uL (4.0-11.0)
[2019-03-17 06:17] LABS: ALBUMIN 2.7 g/dL (3.4-5.0); ALBUMIN/GLOBULIN RATIO 0.7 (1.0-1.7); CALCIUM 8.4 mg/dL (8.5-10.1); CREATININE 0.9 mg/dL (0.6-1.0); GFR 62.3; POTASSIUM 3.8 mmol/L (3.5-5.1); TOTAL BILIRUBIN 0.5 mg/dL (0.2-1.0); TOTAL PROTEIN 6.7 g/dL (6.4-8.2)
[2019-03-17 07:15] VITALS: BP 143/75
--- NOTE | 2019-03-17 08:46 | PDOC ---
Infectious Disease Note Subjective Subjective C/o some nausea and mild abd discomfort still No F/C/S/itch/SOA ROS ROS o/w neg Vital Sign Vital Signs Vital Signs Date Time Temp Pulse Resp B/P (MAP) Pulse Ox O2 Delivery O2 Flow Rate FiO2 03/17/19 07:15 98.7 67 18 143/75 (97) 93 Room Air 98.7 03/16/19 20:00 2.0 Physical Exam PHYSICAL EXAM CONSTITUTIONAL: She is lying in bed. She is cooperative. She is in no acute distress. She is hard of hearing. Appears comfortable HEENT: Her pupils are status post cataract surgery. Oral cavity, pharynx is edentulous. NECK: Supple, no JVD. LUNGS: Clear to auscultation, no wheeze, no rhonchi. HEART: S1, S2. ABDOMEN: Soft, obese, nondistended, no guarding, no rebound. Mild mid abd pain EXTREMITIES: Without clubbing or cyanosis. No gross edema. SKIN: Warm to touch without signs of rash. 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 No edema. NEUROLOGIC: She is alert and responsive. She is smiling. IV site is clean. Labs Lab Laboratory Tests Test 03/16/19 20:22 03/17/19 04:14 Glucose (Fingerstick) 93 mg/dL (70-99) White Blood Count 8.1 x10^3/uL (4.0-11.0) Red Blood Count 3.86 x10^6/uL (3.50-5.40) Hemoglobin 11.9 g/dL (12.0-15.5) Hematocrit 34.6 % (36.0-47.0) Mean Corpuscular Volume 90 fL (79-100) Mean Corpuscular Hemoglobin 31 pg (25-35) Mean Corpuscular Hemoglobin Concent 34 g/dL (31-37) Red Cell Distribution Width 13.8 % (11.5-14.5) Platelet Count 182 x10^3/uL (140-400) Neutrophils (%) (Auto) 51 % (31-73) Lymphocytes (%) (Auto) 36 % (24-48) Monocytes (%) (Auto) 9 % (0-9) Eosinophils (%) (Auto) 4 % (0-3) Basophils (%) (Auto) 0 % (0-3) Neutrophils # (Auto) 4.1 x10^3/uL (1.8-7.7) Lymphocytes # (Auto) 2.9 x10^3/uL (1.0-4.8) Monocytes # (Auto) 0.7 x10^3/uL (0.0-1.1) Eosinophils # (Auto) 0.3 x10^3/uL (0.0-0.7) Basophils # (Auto) 0.0 x10^3/uL (0.0-0.2) Sodium Level 143 mmol/L (136-145) Potassium Level 3.8 mmol/L (3.5-5.1) Chloride Level 107 mmol/L (98-107) Carbon Dioxide Level 26 mmol/L (21-32) Anion Gap 10 (6-14) Blood Urea Nitrogen 12 mg/dL (7-20) Creatinine 0.9 mg/dL (0.6-1.0) Estimated GFR (Cockcroft-Gault) 62.3 BUN/Creatinine Ratio 13 (6-20) Glucose Level 80 mg/dL (70-99) Calcium Level 8.4 mg/dL (8.5-10.1) Total Bilirubin 0.5 mg/dL (0.2-1.0) Aspartate Amino Transf (AST/SGOT) 27 U/L (15-37) Alanine Aminotransferase (ALT/SGPT) 7 U/L (14-59) Alkaline Phosphatase 51 U/L (46-116) Total Protein 6.7 g/dL (6.4-8.2) Albumin 2.7 g/dL (3.4-5.0) Albumin/Globulin Ratio 0.7 (1.0-1.7) Micro Microbiology 03/14/19 Urine Culture - Final, Complete 03/14/19 Urine Culture Result 1 (RICARDO) - Final, Complete Objective Assessment Diarrhea - C-diff neg Ongoing N and abd discomfort - ? gastroenteritis but abn CT scan ? UTI - POA recent proteus res to macrobid/quinolones/amp/Bactrim -cult neg here Pulm infiltrates H/o C-diff HTN Plan Plan of Care D/c po Vanc with C-diff ruled out Discont Rocephin. per nursing lost IV access yesterday and has not received dos e yesterday or today. - She is AF and WBC -nml and Urine clean Gen surg eval of abn CT with ongoing nausea and pain F/u labs/cults D/w nursing D/w Emma RUEDA - Gen surg NAHUN CADENA MD Mar 17, 2019 08:46
[2019-03-17] MEDS: PANTOPRAZOLE 40 MG TABLET.DR. PO SCH (08:49)
[2019-03-17] MEDS: LACTOBACILLUS RHAMNOSUS GG 1 CAPSULE. PO SCH (08:49)
[2019-03-17] MEDS: OXYBUTYNIN CHLORIDE 5 MG TABLET PO SCH (08:49)
[2019-03-17] MEDS: LISINOPRIL 10 MG TABLET PO SCH (08:50)
[2019-03-17] MEDS: ENOXAPARIN 40 MG/0.4 ML SYRINGE. SQ SCH (08:50)
--- NOTE | 2019-03-17 10:25 | PDOC2 ---
KAYLENE LOFTON DATA SCIENCES DIRECTOR 03/17/19 1025: CONSULT Date of Consult Date of Consult DATE: 03/17/19 TIME: 10:10 Reason for Consult Reason for Consult: nausea, diarrhea Referring Physician Referring Physician: Dr Gonzalez Identification/Chief Complaint Chief Complaint diarrhea, nausea Source Source: Chart review, Patient History of Present Illness Reason for Visit: History is very limited due to patients [place] [place] [employer], difficult to communicate effectively with her Recent treatment of UTI, returns with nausea, diarrhea, c diff was negative She did have a sigmoid colon resection in [address] Mann for diverticulitis She does have mesh from a previous hernia repair Hx of diverticulitis nausea with eating no stools today or yesterday Past Medical History Cardiovascular: HTN Pulmonary: No pertinent hx, Other GI: GERD Heme/Onc: Anemia NOS Hepatobiliary: Cholelithiasis Psych: No pertinent hx Musculoskeletal: Osteoarthritis Rheumatologic: No pertinent hx Infectious disease: Other Renal/: Urinary Incontinence, Other Endocrine: No pertinent hx Past Surgical History Past Surgical History: Appendectomy, Cholecystectomy, Hernia Repair, Tonsillectomy, Other Family History Family History: Asthma, Diabetes Social History ALCOHOL: none Drugs: None Lives: with Family Current Problem List Problem List Problems Medical Problems: (1) Intractable diarrhea Status: Acute Current Medications Current Medications Current Medications Sodium Chloride 1,000 ml @ 1,000 mls/hr 1X ONCE IV Last administered on 03/14/19at 23:00; Start 03/14/19 at 23:00; Stop 03/14/19 at 23:59; Status DC Iohexol (Omnipaque 300 Mg/ml) 75 ml 1X ONCE IV ; Start 03/14/19 at 23:00; Stop 03/14/19 at 23:01; Status DC Info (CONTRAST GIVEN -- Rx MONITORING) 1 each PRN DAILY PRN MC SEE COMMENTS; Start 03/14/19 at 22:45; Stop 03/16/19 at 22:44; Status DC Sodium Chloride 1,000 ml @ 100 mls/hr Q10H IV Last administered on 03/15/19at 12:20; Start 03/15/19 at 01:00; Stop 03/15/19 at 12:52; Status DC Influenza Virus Vaccine Quadrival (Afluria Quad 2019-20 (3yr Up) Syringe) 0.5 ml ONCE ONCE VAX IM ; Start 03/15/19 at 09:00; Stop 03/15/19 at 09:01; Status DC Sodium Chloride 1,000 ml @ 100 mls/hr Q10H IV Last administered on 03/15/19 14:54; Start 03/15/19 at 16:00; Stop 03/16/19 at 01:59; Status DC Morphine Sulfate (Morphine Sulfate) 2 mg PRN Q4HRS PRN IV SEVERE PAIN 7-10; Start 03/15/19 at 06:00 Ondansetron HCl (Zofran) 4 mg PRN Q6HRS PRN IVP NAUSEA/VOMITING 1ST CHOICE; Start 03/15/19 at 06:00 Enoxaparin Sodium (Lovenox 40mg Syringe) 40 mg Q24H SQ Last administered on 03/17/19 08:50; Start 03/15/19 at 09:00 Zinc Oxide (Zinc Oxide 20% Topical) 1 kia PRN Q4HRS PRN TP SKIN PROTECTION; Start 03/15/19 at 09:00 Lisinopril (Prinivil) 10 mg DAILY PO Last administered on 03/17/19 08:50; Start 03/15/19 at 09:00 Tramadol HCl (Ultram) 50 mg PRN Q6HRS PRN PO MODERATE PAIN 4-6 Last administered on 03/17/19 02:03; Start 03/15/19 at 06:15 Oxybutynin Chloride (Ditropan) 5 mg [id number] PO Last administered on 03/17/19 08:49; Start 03/15/19 at 09:00 Trazodone HCl (Desyrel) 150 mg QHS PO Last administered on 03/16/19 21:42; Start 03/15/19 at 21:00 Vancomycin HCl (Vancomycin Oral Solution) 125 mg [id number] PO Last administered on 03/16/19 08:27; Start 03/15/19 at 13:00; Stop 03/16/19 at 09:18; Status DC Ceftriaxone Sodium (Rocephin) 1 gm Q24H IVP Last administered on 03/15/19 12:20; Start 03/15/19 at 12:00; Stop 03/17/19 at 09:13; Status DC Lactobacillus Rhamnosus (Culturelle) 1 cap BID PO Last administered on 10/31/19at 08:49; Start 03/15/19 at 21:00 Pantoprazole Sodium (Protonix) 40 mg DAILYAC PO Last administered on 03/17/19 08:49; Start 03/16/19 at 10:00 Ondansetron HCl (Zofran Odt) 4 mg PRN Q6HRS PRN PO NAUSEA/VOMITING Last administered on 03/17/19 02:03; Start 03/16/19 at 22:00 Active Scripts Active Combivent Respimat Inhal (Ipratropium/Albuterol Sulfate) 4 Gm Aer.w.adap 2 Inh I H QID 30 Days Reported Trazodone Hcl 150 Mg Tablet 1 Tab PO QHS can have 1-3 tabs but daughter claimed she gives 3 tabs Tramadol Hcl 50 Mg Tablet 50 Mg PO Q6HRS PRN Nystatin 15 Gm Powder 1 Kia TP BID Vesicare (Solifenacin Succinate) 10 Mg Tablet 1 Tab PO DAILY Flomax (Tamsulosin Hcl) 0.4 Mg Cap.er.24h 1 Cap PO HS Lisinopril 10 Mg Tablet 10 Mg PO DAILY Allergies Allergies: Coded Allergies: codeine (Verified Allergy, Intermediate, TOLERATES MORPHINE, 01/07/17) TOLERATES MORPHINE meperidine (Verified Adverse Reaction, Intermediate, Nausea and Vomiting, 01/07/17) ROS General: No: Chills, Other (fevers ) PSYCHOLOGICAL ROS: No: Anxiety, Depression Eyes: No Blurry vision, No Double vision HEENT: No: Heacaches, Sore Throat Hematological and Lymphatic: No: Bleeding Problems, Blood Clots Respiratory: No: Cough, Shortness of breath Cardiovascular: No Chest Pain, No Palpitations Gastrointestinal: Yes Other (see hpi) Genitourinary: No Dysuria, No Hematuria Musculoskeletal: No Joint Pain, No Muscle Pain Physical Exam General: Alert, Cooperative HEENT: Atraumatic, PERRLA Lungs: Clear to auscultation, Normal air movement Heart: Regular rate, Normal S1, Normal S2 Abdomen: Soft, Other (scars noted ) Extremities: No clubbing, No cyanosis Skin: No rashes, No breakdown Neuro: Normal speech, Sensation intact Psych/Mental Status: Mental status NL, Mood NL MUSCULOSKELETAL: No deformity, No swelling Vitals VITALS Vital Signs Date Time Temp Pulse Resp B/P (MAP) Pulse Ox O2 Delivery O2 Flow Rate FiO2 03/17/19 08:50 67 143/75 03/17/19 07:15 98.7 18 93 Room Air 98.7 03/16/19 20:00 2.0 Labs Labs Laboratory Tests Test 03/16/19 03:44 03/16/19 20:22 03/17/19 04:14 White Blood Count 8.0 x10^3/uL (4.0-11.0) 8.1 x10^3/uL (4.0-11.0) Red Blood Count 3.86 x10^6/uL (3.50-5.40) 3.86 x10^6/uL (3.50-5.40) Hemoglobin 11.7 g/dL (12.0-15.5) 11.9 g/dL (12.0-15.5) Hematocrit 35.1 % (36.0-47.0) 34.6 % (36.0-47.0) Mean Corpuscular Volume 91 fL (79-100) 90 fL (79-100) Mean Corpuscular Hemoglobin 30 pg (25-35) 31 pg (25-35) Mean Corpuscular Hemoglobin Concent 33 g/dL (31-37) 34 g/dL (31-37) Red Cell Distribution Width 14.2 % (11.5-14.5) 13.8 % (11.5-14.5) Platelet Count 186 x10^3/uL (140-400) 182 x10^3/uL (140-400) Neutrophils (%) (Auto) 53 % (31-73) 51 % (31-73) Lymphocytes (%) (Auto) 33 % (24-48) 36 % (24-48) Monocytes (%) (Auto) 8 % (0-9) 9 % (0-9) Eosinophils (%) (Auto) 5 % (0-3) 4 % (0-3) Basophils (%) (Auto) 1 % (0-3) 0 % (0-3) Neutrophils # (Auto) 4.3 x10^3/uL (1.8-7.7) 4.1 x10^3/uL (1.8-7.7) Lymphocytes # (Auto) 2.7 x10^3/uL (1.0-4.8) 2.9 x10^3/uL (1.0-4.8) Monocytes # (Auto) 0.6 x10^3/uL (0.0-1.1) 0.7 x10^3/uL (0.0-1.1) Eosinophils # (Auto) 0.4 x10^3/uL (0.0-0.7) 0.3 x10^3/uL (0.0-0.7) Basophils # (Auto) 0.1 x10^3/uL (0.0-0.2) 0.0 x10^3/uL (0.0-0.2) Sodium Level 143 mmol/L (136-145) 143 mmol/L (136-145) Potassium Level 3.6 mmol/L (3.5-5.1) 3.8 mmol/L (3.5-5.1) Chloride Level 108 mmol/L (98-107) 107 mmol/L (98-107) Carbon Dioxide Level 26 mmol/L (21-32) 26 mmol/L (21-32) Anion Gap 9 (6-14) 10 (6-14) Blood Urea Nitrogen 13 mg/dL (7-20) 12 mg/dL (7-20) Creatinine 1.1 mg/dL (0.6-1.0) 0.9 mg/dL (0.6-1.0) Estimated GFR (Cockcroft-Gault) 49.4 62.3 Glucose Level 66 mg/dL (70-99) 80 mg/dL (70-99) Calcium Level 7.8 mg/dL (8.5-10.1) 8.4 mg/dL (8.5-10.1) Glucose (Fingerstick) 93 mg/dL (70-99) BUN/Creatinine Ratio 13 (6-20) Total Bilirubin 0.5 mg/dL (0.2-1.0) Aspartate Amino Transf (AST/SGOT) 27 U/L (15-37) Alanine Aminotransferase (ALT/SGPT) 7 U/L (14-59) Alkaline Phosphatase 51 U/L (46-116) Total Protein 6.7 g/dL (6.4-8.2) Albumin 2.7 g/dL (3.4-5.0) Albumin/Globulin Ratio 0.7 (1.0-1.7) Laboratory Tests Test 03/16/19 20:22 03/17/19 04:14 Glucose (Fingerstick) 93 mg/dL (70-99) White Blood Count 8.1 x10^3/uL (4.0-11.0) Red Blood Count 3.86 x10^6/uL (3.50-5.40) Hemoglobin 11.9 g/dL (12.0-15.5) Hematocrit 34.6 % (36.0-47.0) Mean Corpuscular Volume 90 fL (79-100) Mean Corpuscular Hemoglobin 31 pg (25-35) Mean Corpuscular Hemoglobin Concent 34 g/dL (31-37) Red Cell Distribution Width 13.8 % (11.5-14.5) Platelet Count 182 x10^3/uL (140-400) Neutrophils (%) (Auto) 51 % (31-73) Lymphocytes (%) (Auto) 36 % (24-48) Monocytes (%) (Auto) 9 % (0-9) Eosinophils (%) (Auto) 4 % (0-3) Basophils (%) (Auto) 0 % (0-3) Neutrophils # (Auto) 4.1 x10^3/uL (1.8-7.7) Lymphocytes # (Auto) 2.9 x10^3/uL (1.0-4.8) Monocytes # (Auto) 0.7 x10^3/uL (0.0-1.1) Eosinophils # (Auto) 0.3 x10^3/uL (0.0-0.7) Basophils # (Auto) 0.0 x10^3/uL (0.0-0.2) Sodium Level 143 mmol/L (136-145) Potassium Level 3.8 mmol/L (3.5-5.1) Chloride Level 107 mmol/L (98-107) Carbon Dioxide Level 26 mmol/L (21-32) Anion Gap 10 (6-14) Blood Urea Nitrogen 12 mg/dL (7-20) Creatinine 0.9 mg/dL (0.6-1.0) Estimated GFR (Cockcroft-Gault) 62.3 BUN/Creatinine Ratio 13 (6-20) Glucose Level 80 mg/dL (70-99) Calcium Level 8.4 mg/dL (8.5-10.1) Total Bilirubin 0.5 mg/dL (0.2-1.0) Aspartate Amino Transf (AST/SGOT) 27 U/L (15-37) Alanine Aminotransferase (ALT/SGPT) 7 U/L (14-59) Alkaline Phosphatase 51 U/L (46-116) Total Protein 6.7 g/dL (6.4-8.2) Albumin 2.7 g/dL (3.4-5.0) Albumin/Globulin Ratio 0.7 (1.0-1.7) Assessment/Plan Assessment/Plan nausea, diarrhea ct with 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
--- NOTE | 2019-03-17 10:53 | SNU/HH DC ---
DISCHARGE WITH HOME HEALTH DISCHARGE INFORMATION: Final Diagnosis: Problems Medical Problems: (1) Intractable diarrhea Status: Acute Condition on Discharge: Stable CODE STATUS: Code Status: Full HOME HEALTH: Face to Face: I certify this patient is under my care and that I, or a nurse practitioner or physician's hair assistant working with me, had a face to face encounter that meets the physician face to face encounter requirements with this patient on []. Medical Complications: DJD, Other (resolving diarrhea) Retirement For: Assess & Educate Safety RN For Eval/Treatment: Yes Physical Therapy For: Evalulation/Treatment Occupational Therapy For: Evaluation/Treatment Home Health Aide For: Self-care STATUARY PAINTER For: Community Resources Pt Meets Homebound Status: Extreme weakness w/ amb. POST DISCHARGE ORDERS: Activity Instructions for Disc: Activity as tolerated Weight Bearing Status after Di: As tolerated DIET AFTER DISCHARGE: Regular Wound/Incision Care: Change dressing CHECKS AFTER DISCHARGE: Checks after discharge: Check blood press - daily, Check your Temp as needed TREATMENT/EQUIPMENT ORDERS: Adaptive Equipment Issued: None CERTIFICATION STATEMENT: Certification Statement: Certification Statement: Based on the above finding, I certify that this patient is confined to the home and needs intermittent half-way care, physical therapy and/or speech therapy, or continues to need occupational therapy.~ This patient is under my care, and I have initiated the establishment of the plan of care.~ This patient will be followed by myself or a community physician who will periodically review the plan of care. Home Meds Active Scripts Ipratropium/Albuterol Sulfate (COMBIVENT RESPIMAT INHAL) 4 Gm Aer.w.adap, 2 INH IH QID for breathing for 30 Days, #1 INHALER Prov:Yao HEATON MD 05/04/18 Reported Medications Trazodone Hcl (TRAZODONE HCL) 150 Mg Tablet, 1 TAB PO QHS for sleep, #30 TAB 1 Refill can have 1-3 tabs but daughter claimed she gives 3 tabs 04/27/18 Tramadol Hcl (TRAMADOL HCL) 50 Mg Tablet, 50 MG PO Q6HRS PRN for PAIN, TAB 04/27/18 Nystatin (NYSTATIN) 15 Gm Powder, 1 PAULETTE TP BID for yeast infection/skin folds, #1 BOTTLE 04/27/18 Solifenacin Succinate (VESICARE) 10 Mg Tablet, 1 TAB PO DAILY for bladder problem, #30 TAB 5 Refills 04/27/18 Tamsulosin Hcl (FLOMAX) 0.4 Mg Cap.er.24h, 1 CAP PO HS for bladder problem, #30 CAP 11 Refills 04/27/18 Lisinopril (LISINOPRIL) 10 Mg Tablet, 10 MG PO DAILY for FOR HYPERTENSION, #30 T AB 0 Refills 11/25/16 Discontinued Scripts Nitrofurantoin Macrocrystal (NITROFURANTOIN) 100 Mg Capsule, 1 CAP PO BID for UTI for 10 Days, #20 CAP Prov:IRAIDA REINOSO DO 03/07/19 Levofloxacin (LEVAQUIN) 500 Mg Tablet, 1 TAB PO DAILY for uti, #7 TAB Prov:DELROY VILLANUEVA MD 06/20/18 Lactobacillus Rhamnosus Gg (CULTURELLE) 1 Each Cap.sprink, 1 CAP PO BID for probiotic for 7 Days, #14 CAP Prov:Yao HEATON MD 05/04/18 Benzonatate (BENZONATATE) 100 Mg Capsule, 100 MG PO [id number] for cough for 7 Days, #21 CAP Prov:Yao HEATON MD 05/04/18 MICHELLE WRAY III DO Mar 17, 2019 10:52
[2019-03-17 11:05] VITALS: BP 141/69
--- NOTE | 2019-03-17 11:22 | PDOC ---
[employer] PROGRESS NOTE Chief Complaint Chief Complaint Diarrhea History of Present Illness History of Present Illness 03/17/19 Pt seen and examined. Discussed with nurse. No longer on antibiotics and no signs of infection present. Will discharge home today with home health if ok with consults. Patient is a 68 year old female presenting to the ED the chief complaint of diarrhea. Patient states that she is at over 20 bouts of diarrhea since yesterday. Patient states that she was recently seen on March 07 for a fall with history of antibiotics for UTI. Patient states that the area around her buttocks is excoriated due to the diarrhea. Patient was seen and examined, discussed with RN, stating that the patient was found to be negative for C. Diff toxin. Currently awaiting further input from GI consult. Will arrange an evaluation for placement in a SNU. Vitals/I&O Vitals/I&O: Vital Signs Date Time Temp Pulse Resp B/P (MAP) Pulse Ox O2 Delivery O2 Flow Rate FiO2 03/17/19 11:05 97.3 70 20 141/69 (93) 94 Room Air 97.3 03/16/19 20:00 2.0 I & O 03/16/19 03/16/19 03/17/19 15:00 23:00 07:00 Intake Total 120 ml 450 ml Balance 120 ml 450 ml Physical Exam Physical Exam: CONSTITUTIONAL: She is lying in bed. She is cooperative. She is in no acute distress. She is hard of hearing. LUNGS: Clear to auscultation, no wheeze, no rhonchi. HEART: S1, S2. ABDOMEN: Soft, obese, nondistended, no guarding, no rebound. Mild mid abd pain EXTREMITIES: Without clubbing or cyanosis. No gross edema. SKIN: Warm to touch without signs of rash. 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 No edema. NEUROLOGIC: She is alert and responsive. She is smiling. IV site is clean. General: Alert, Cooperative Heart: Regular rate, Normal S1, Normal S2 Lungs: Wheezing Abdomen: Soft, Other (scars noted ) Extremities: No clubbing, No cyanosis Skin: No rashes, No breakdown Labs Labs: Laboratory Tests Test 03/16/19 20:22 03/17/19 04:14 Glucose (Fingerstick) 93 mg/dL (70-99) White Blood Count 8.1 x10^3/uL (4.0-11.0) Red Blood Count 3.86 x10^6/uL (3.50-5.40) Hemoglobin 11.9 g/dL (12.0-15.5) Hematocrit 34.6 % (36.0-47.0) Mean Corpuscular Volume 90 fL (79-100) Mean Corpuscular Hemoglobin 31 pg (25-35) Mean Corpuscular Hemoglobin Concent 34 g/dL (31-37) Red Cell Distribution Width 13.8 % (11.5-14.5) Platelet Count 182 x10^3/uL (140-400) Neutrophils (%) (Auto) 51 % (31-73) Lymphocytes (%) (Auto) 36 % (24-48) Monocytes (%) (Auto) 9 % (0-9) Eosinophils (%) (Auto) 4 % (0-3) Basophils (%) (Auto) 0 % (0-3) Neutrophils # (Auto) 4.1 x10^3/uL (1.8-7.7) Lymphocytes # (Auto) 2.9 x10^3/uL (1.0-4.8) Monocytes # (Auto) 0.7 x10^3/uL (0.0-1.1) Eosinophils # (Auto) 0.3 x10^3/uL (0.0-0.7) Basophils # (Auto) 0.0 x10^3/uL (0.0-0.2) Sodium Level 143 mmol/L (136-145) Potassium Level 3.8 mmol/L (3.5-5.1) Chloride Level 107 mmol/L (98-107) Carbon Dioxide Level 26 mmol/L (21-32) Anion Gap 10 (6-14) Blood Urea Nitrogen 12 mg/dL (7-20) Creatinine 0.9 mg/dL (0.6-1.0) Estimated GFR (Cockcroft-Gault) 62.3 BUN/Creatinine Ratio 13 (6-20) Glucose Level 80 mg/dL (70-99) Calcium Level 8.4 mg/dL (8.5-10.1) Total Bilirubin 0.5 mg/dL (0.2-1.0) Aspartate Amino Transf (AST/SGOT) 27 U/L (15-37) Alanine Aminotransferase (ALT/SGPT) 7 U/L (14-59) Alkaline Phosphatase 51 U/L (46-116) Total Protein 6.7 g/dL (6.4-8.2) Albumin 2.7 g/dL (3.4-5.0) Albumin/Globulin Ratio 0.7 (1.0-1.7) Review of Systems Review of Systems: Yes nausea Yes abdominal discomfort Assessment and Plan Assessmemt and Plan Problems Medical Problems: (1) Intractable diarrhea Status: Acute Assessment: admitted with intractable diarrhea - (C-diff negative); continuing abdominal discomfort Plan: discharge home today with home health if OK with consults ID has discontinued antibiotics per notes - afebrile, normal white counts Surgery was consulted - no surgical intervention required at this time DVT prophylaxis Full code Comment Review of Relevant I have reviewed the following items marcio (where applicable) has been applied. Medications: Current Medications Medications (Trade) Dose Ordered Sig/Haim Route PRN Reason Start Time Stop Time Status Last Admin Dose Admin Ondansetron HCl (Zofran Odt) 4 mg PRN Q6HRS PRN PO NAUSEA/VOMITING 03/16/19 22:00 03/17/19 02:03 MICHELLE WRAY III DO Mar 17, 2019 11:22
--- NOTE | 2019-03-17 11:23 | PDOC ---
Subjective: Subjective: Nausea after breakfast. Objective: Objective: No diarrhea per staff. Ate 50% of breakfast. Vital Signs: Vital Signs Date Time Temp Pulse Resp B/P (MAP) Pulse Ox O2 Delivery O2 Flow Rate FiO2 03/17/19 11:05 97.3 70 20 141/69 (93) 94 Room Air 97.3 03/16/19 20:00 2.0 Labs: Laboratory Tests Test 03/16/19 20:22 03/17/19 04:14 Glucose (Fingerstick) 93 mg/dL White Blood Count 8.1 x10^3/uL Red Blood Count 3.86 x10^6/uL Hemoglobin 11.9 g/dL Hematocrit 34.6 % Mean Corpuscular Volume 90 fL Mean Corpuscular Hemoglobin 31 pg Mean Corpuscular Hemoglobin Concent 34 g/dL Red Cell Distribution Width 13.8 % Platelet Count 182 x10^3/uL Neutrophils (%) (Auto) 51 % Lymphocytes (%) (Auto) 36 % Monocytes (%) (Auto) 9 % Eosinophils (%) (Auto) 4 % Basophils (%) (Auto) 0 % Neutrophils # (Auto) 4.1 x10^3/uL Lymphocytes # (Auto) 2.9 x10^3/uL Monocytes # (Auto) 0.7 x10^3/uL Eosinophils # (Auto) 0.3 x10^3/uL Basophils # (Auto) 0.0 x10^3/uL Sodium Level 143 mmol/L Potassium Level 3.8 mmol/L Chloride Level 107 mmol/L Carbon Dioxide Level 26 mmol/L Anion Gap 10 Blood Urea Nitrogen 12 mg/dL Creatinine 0.9 mg/dL Estimated GFR (Cockcroft-Gault) 62.3 BUN/Creatinine Ratio 13 Glucose Level 80 mg/dL Calcium Level 8.4 mg/dL Total Bilirubin 0.5 mg/dL Aspartate Amino Transf (AST/SGOT) 27 U/L Alanine Aminotransferase (ALT/SGPT) 7 U/L Alkaline Phosphatase 51 U/L Total Protein 6.7 g/dL Albumin 2.7 g/dL Albumin/Globulin Ratio 0.7 PE: GEN: NAD LUNGS: CTAB HEART: RRR ABD: non-specifically tender NEURO/PSYCH: A & O 3, [place] A/P: Diarrhea - resolved Nausea, abd discomfort -- Continue same per GI. Have seen her in the past - abdomen is always uncomfortable. On empiric PPI. S/p cole. EGDs in the past. Will review any additional testing re: nausea w/ Dr. Connell - ?GES - would not be a good candidate for treatment w/ Reglan or e-mycin if abnormal. GIFTY PARKINSON Mar 17, 2019 11:23
--- NOTE | 2019-03-17 11:50 | NUR ---
MARINA following pt. MARINA phoned and faxed orders to [facility]. MARINA arranged transport via [facility] between [id number]. PT/OT to work with pt about side board transfer prior dc. Pt's daughter, aurora notified and agreeable with plan. Discussed with PT/OT, RN and Physician. Addendum: 03/17/19 at 1506 by GIOVANA GRAY MARINA notified by RN that pt was not able to transfer via wheelchair when transport came to pick her up. MARINA arranged transport via [facility] at 1600. Daughter notified regarding this.
[2019-03-17 15:15] VITALS: BP 132/71
--- NOTE | 2019-03-17 17:49 | NUR ---
Discharge Note: ADRIANO MARSHALL J6 [facility] Discharge instructions and discharge home medications reviewed with patient's daughter over the phone at 1610 and copy faxed to Home Health nurse. All questions have been answered and understanding verbalized. The following instructions and handouts were given: Continue Omeprazole 40 mg tablet , 1 tablet daily Ondansetron 4 mg/tab ODT, 1 tab q 6 hour prn for nausea or vomiting. Follow up with PCP in a week. Handouts on diarrhea. Patient discharged to home with home health via [facility] [employer]. Patient was awake, alert, oriented. She left the unit at 1615.
--- NOTE | 2019-03-18 09:11 | DS ---
DATE OF DISCHARGE: 03/17/2019 ADMISSION DIAGNOSIS: Intractable diarrhea with Clostridium difficile. DISCHARGE DIAGNOSIS: Resolving Clostridium difficile. HOSPITAL COURSE: The patient is a pleasant 68-year-old female who presented with intractable diarrhea. We admitted her, consulted GI and treated her for C. diff (even though we treated her, her actual testing was negative), gave her IV fluids, did some physical therapy and occupational therapy. Yesterday, she was doing well. We discharged to home with home health. DISPOSITION: Home with home health. ACTIVITY: As tolerated. DIET: Low sodium. MEDICATIONS: Please see MRAD. TOTAL TIME: 32 minutes. KIAL Kyle WRAY DO DR: LEODAN/amparo JOB#: [id number] / [id number]
== END 2019-03-17 16:15 | disposition home health service (06) | DRG 372 ==
LOC: ER 21:07 → 6 SOUTH 03-15 00:15
PROVIDERS: ADMIT Internal Medicine; ATTEND Internal Medicine
DX: A04.72 Enterocolitis due to Clostridium difficile, not specified as recurrent (principal); N39.0 Urinary tract infection, site not specified; B95.62 Methicillin resistant Staphylococcus aureus infection as the cause of diseases classified elsewhere; D12.3 Benign neoplasm of transverse colon; E11.9 Type 2 diabetes mellitus without complications; E78.5 Hyperlipidemia, unspecified; H91.91 Unspecified hearing loss, right ear; I10 Essential (primary) hypertension; I25.10 Atherosclerotic heart disease of native coronary artery without angina pectoris; K21.9 Gastro-esophageal reflux disease without esophagitis; Z96.659 Presence of unspecified artificial knee joint; M19.90 Unspecified osteoarthritis, unspecified site; K57.30 Diverticulosis of large intestine without perforation or abscess without bleeding; Z82.5 Family history of asthma and other chronic lower respiratory diseases; Z83.3 Family history of diabetes mellitus; Z86.14 Personal history of Methicillin resistant Staphylococcus aureus infection; Z86.19 Personal history of other infectious and parasitic diseases; Z87.440 Personal history of urinary (tract) infections; Z87.891 Personal history of nicotine dependence; Z89.611 Acquired absence of right leg above knee; Z90.49 Acquired absence of other specified parts of digestive tract
CPT/HCPCS: 36415; 74176; 80048; 80053; 81001; 82962; 85025; 87086; 87493; 96360; J0696; J1650; J7030; Q0162; 97530; 97535; 99285-25; G0378

== ENCOUNTER 2019-08-10 11:30 | Emergency (ER) | payer MEDICAID, OTHER ==
[~2019-08-10] VITALS: Ht 157.5 cm; Wt 118.8 kg
[2019-08-10] MEDS ORDERED: IV NORMAL SALINE 1000ML BAG 1,000 ML IV ONE (12:15)
[2019-08-10 12:30] LABS: BASO # 0.1 x10^3/uL (0.0-0.2); BASO % 1 % (0-3); EOS # 0.2 x10^3/uL (0.0-0.7); EOS % 3 % (0-3); HEMATOCRIT 39.5 % (36.0-47.0); HEMOGLOBIN 13.2 g/dL (12.0-15.5); LYMPH # 2.1 x10^3/uL (1.0-4.8); LYMPH % 29 % (24-48); MEAN CORPUSCULAR HEMOGLOBIN 30 pg (25-35); MEAN CORPUSCULAR HGB CONC 33 g/dL (31-37); MEAN CORPUSCULAR VOLUME 91 fL (79-100); MONO # 0.6 x10^3/uL (0.0-1.1); MONO % 8 % (0-9); NEUT # 4.3 x10^3/uL (1.8-7.7); NEUT % 60 % (31-73); PLATELET COUNT 240 x10^3/uL (140-400); RED BLOOD COUNT 4.37 x10^6/uL (3.50-5.40); RED CELL DISTRIBUTION WIDTH 13.6 % (11.5-14.5); WHITE BLOOD COUNT 7.2 x10^3/uL (4.0-11.0)
[2019-08-10 12:30] LABS: BILIRUBIN,URINE NEGATIVE (NEG); CLARITY,URINE CLEAR; COLOR,URINE YELLOW; NITRITE,URINE POSITIVE (NEG); PH,URINE 5.5 (<5.0-8.0); PROTEIN,URINE NEGATIVE (NEG-TRACE); UROBILINOGEN,URINE 0.2 mg/dL (0.2 mg/dL)
[2019-08-10 12:39] LABS: PROTHROMBIN TIME PATIENT 12.9 SEC (11.7-14.0)
[2019-08-10 12:39] LABS: BACTERIA,URINE MANY /HPF (0-FEW); WBC,URINE TNTC /HPF (0-4)
[2019-08-10 12:40] LABS: RBC,URINE FIELD OBSCURED /HPF (0-2)
[2019-08-10 12:43] LABS: CALCIUM 8.6 mg/dL (8.5-10.1); POTASSIUM 4.4 mmol/L (3.5-5.1)
[2019-08-10 12:48] LABS: ALBUMIN 2.9 g/dL (3.4-5.0); ALBUMIN/GLOBULIN RATIO 0.7 (1.0-1.7); TOTAL BILIRUBIN 0.2 mg/dL (0.2-1.0); TOTAL PROTEIN 7.2 g/dL (6.4-8.2)
--- NOTE | 2019-08-10 13:25 | RAD ---
CT ABDOMEN PELVIS WO CONTRAST Indication: Abdominal pain, diarrhea. Exposure: One or more of the following individualized dose reduction techniques were utilized for this examination: 1. Automated exposure control 2. Adjustment of the mA and/or kV according to patient size 3. Use of iterative reconstruction technique. Comparison: March 14, 2019 Technique: No intravenous contrast given. No oral contrast per request. Findings: Evaluation of solid viscera, bowel and vasculature is compromised by the noncontrast technique. Tiny nodule in the right lower lobe measures 3 mm, series 2, image 15, similar to prior study. Mild atelectasis and/or infiltrate identified in lung bases. Coronary artery calcifications. No large pericardial effusion or pleural effusion in the visualized chest. Liver appears unremarkable. Spleen is upper limits normal in size. This appears similar. Pancreas appears unremarkable. No evidence of adrenal mass. No evidence of hydronephrosis or renal calculus. Gallbladder surgically absent. Aorta is mildly calcified and ectatic, no evidence of gross aneurysm. No evidence of pathologic lymph node enlargement. There is some air/gas density adjacent to the second portion of the duodenum may represent a diverticulum, also seen previously and appears similar. No significant small bowel distention. Anterior abdominal wall hernia is again identified at the midline containing fat and small bowel. No evidence of bowel obstruction. No evidence of acute colitis. Mild stool within the colon as well as some density presumably from prior contrast administration. The appendix is not clearly visualized. No evidence of ascites. No evidence of pneumoperitoneum. Limited distention of the urinary bladder. No evidence of pelvic mass. Degenerative spondylosis. Right convexity lumbar scoliosis. Lumbar stenosis. Surgical changes along the anterior abdominal wall presumably due to prior surgical repair, are again seen. Mild deformity of approximately T10 vertebral body, likely a mild chronic developmental deformity. This is unchanged. Severe degenerative changes at both hips. IMPRESSION: 1. No acute process identified in the abdomen or pelvis. 2. Mild atelectasis and/or infiltrates in the lung bases. Stable 3 mm right lower lobe pulmonary nodule. 3. Anterior abdominal wall hernia containing small bowel loops. No evidence of bowel obstruction. Electronically signed by: Derrick Zapien MD (08/10/2019 1:23 PM) [id number]
[2019-08-10] MEDS ORDERED: cefTRIAXone IV Push 1 GM VIAL. IVP ONE (13:30)
[2019-08-10 14:11] VITALS: BP 206/83
[2019-08-10] MEDS ORDERED: CEPH500C PO (14:34)
--- NOTE | 2019-08-10 14:35 | PHYS DOC ---
Past Medical History Past Medical History: COPD, Diabetes-Type II, GERD, Hypertension, MRSA, Other Additional Past Medical Histor: "bladder problems", HYPERKALEMIA, [place]; right AKA Past Surgical History: Appendectomy, Cholecystectomy, Colectomy, Tonsillectomy, Other Additional Past Surgical Histo: R AKA, hernia Smoking Status: Former Smoker Alcohol Use: None Drug Use: None Adult General Chief Complaint Chief Complaint: DIARRHEA HPI HPI Patient is a 69 year old female who presents to the emergency department today with complaints of diarrhea and lower abdominal that began yesterday. Patient states that she had 2 or 3 loose stools yesterday, she denies any blood in her stools. Patient denies any fever, cough, shortness of breath, or dysuria. P atient is very hard of hearing therefore HPI is limited. She complains of intermittent lower abdominal pain but currently denies any pain. Review of Systems Review of Systems Complete systems were reviewed and found to be within normal limits, except as documented in this note. Current Medications Current Medications Current Medications Medications (Trade) Dose Ordered Sig/Haim Start Time Stop Time Status Last Admin Dose Admin Ceftriaxone Sodium (Rocephin) 1 gm 1X ONCE 08/10/19 13:30 08/10/19 13:31 DC 08/10/19 13:35 1 GM Sodium Chloride 1,000 ml @ 1,000 mls/hr 1X ONCE 08/10/19 12:15 08/10/19 13:14 DC 08/10/19 12:36 1,000 MLS/HR Allergies Allergies Allergies Coded Allergies Type Severity Reaction Last Updated Verified codeine Allergy Intermediate TOLERATES MORPHINE 01/07/17 Yes meperidine Adverse Reaction Intermediate Nausea and Vomiting 01/07/17 Yes Physical Exam Physical Exam Constitutional: Well developed, well nourished, no acute distress, non-toxic appearance, obese; [place]. [] HENT: Normocephalic, atraumatic, bilateral external ears normal, oropharynx dry, no oral exudates, nose normal. [] Eyes: PERRLA, EOMI, conjunctiva normal, no discharge. [] Neck: Normal range of motion, no stridor. [] Cardiovascular:Heart rate regular rhythm Lungs & Thorax: Bilateral breath sounds clear to auscultation, respirations even and unlabored, no distress noted [] Abdomen: Bowel sounds normal, soft, LLQ and RLQ TTP, no rebound tenderness, no masses, no pulsatile masses. [] Skin: Warm, dry, no erythema, no rash. [] Extremities: No cyanosis, ROM intact; R BKA without erythema, warmth, or drainage Neurologic: Alert and oriented X 3, no focal deficits noted. [] Psychologic: Affect normal, judgement normal, mood normal. [] Current Patient Data Vital Signs Vital Signs Date Time Temp Pulse Resp B/P (MAP) Pulse Ox O2 Delivery O2 Flow Rate FiO2 08/10/19 14:11 70 206/83 (124) 97 Room Air 08/10/19 11:41 98.3 18 98.3 Lab Values Laboratory Tests Test 08/10/19 12:10 08/10/19 12:20 Urine Collection Type U cath Urine Color Yellow Urine Clarity Clear Urine pH 5.5 (<5.0-8.0) Urine Specific [place] 1.020 (1.000-1.030) Urine Protein Negative mg/dL (NEG-TRACE) Urine Glucose (UA) Negative mg/dL (NEG) Urine Ketones (Stick) Negative mg/dL (NEG) Urine Blood Negative (NEG) Urine Nitrite Positive (NEG) Urine Bilirubin Negative (NEG) Urine Urobilinogen Dipstick 0.2 mg/dL (0.2 mg/dL) Urine Leukocyte Esterase Large (NEG) Urine RBC Field obscured /HPF (0-2) Urine WBC Tntc /HPF (0-4) Urine Bacteria Many /HPF (0-FEW) White Blood Count 7.2 x10^3/uL (4.0-11.0) Red Blood Count 4.37 x10^6/uL (3.50-5.40) Hemoglobin 13.2 g/dL (12.0-15.5) Hematocrit 39.5 % (36.0-47.0) Mean Corpuscular Volume 91 fL (79-100) Mean Corpuscular Hemoglobin 30 pg (25-35) Mean Corpuscular Hemoglobin Concent 33 g/dL (31-37) Red Cell Distribution Width 13.6 % (11.5-14.5) Platelet Count 240 x10^3/uL (140-400) Neutrophils (%) (Auto) 60 % (31-73) Lymphocytes (%) (Auto) 29 % (24-48) Monocytes (%) (Auto) 8 % (0-9) Eosinophils (%) (Auto) 3 % (0-3) Basophils (%) (Auto) 1 % (0-3) Neutrophils # (Auto) 4.3 x10^3/uL (1.8-7.7) Lymphocytes # (Auto) 2.1 x10^3/uL (1.0-4.8) Monocytes # (Auto) 0.6 x10^3/uL (0.0-1.1) Eosinophils # (Auto) 0.2 x10^3/uL (0.0-0.7) Basophils # (Auto) 0.1 x10^3/uL (0.0-0.2) Prothrombin Time 12.9 SEC (11.7-14.0) Prothrombin Time INR 1.0 (0.8-1.1) Activated Partial Thromboplast Time 32 SEC (24-38) Sodium Level 141 mmol/L (136-145) Potassium Level 4.4 mmol/L (3.5-5.1) Chloride Level 104 mmol/L (98-107) Carbon Dioxide Level 32 mmol/L (21-32) Anion Gap 5 (6-14) L Blood Urea Nitrogen 15 mg/dL (7-20) Creatinine 1.0 mg/dL (0.6-1.0) Estimated GFR (Cockcroft-Gault) 55.0 BUN/Creatinine Ratio 15 (6-20) Glucose Level 118 mg/dL (70-99) H Calcium Level 8.6 mg/dL (8.5-10.1) Magnesium Level 2.0 mg/dL (1.8-2.4) Total Bilirubin 0.2 mg/dL (0.2-1.0) Aspartate Amino Transferase (AST) 21 U/L (15-37) Alanine Aminotransferase (ALT) 8 U/L (14-59) L Alkaline Phosphatase 65 U/L (46-116) Total Protein 7.2 g/dL (6.4-8.2) Albumin 2.9 g/dL (3.4-5.0) L Albumin/Globulin Ratio 0.7 (1.0-1.7) L Lipase 143 U/L (73-393) Laboratory Tests 08/10/19 12:20 Laboratory Tests 08/10/19 12:20 EKG EKG [] Radiology/Procedures Radiology/Procedures PROCEDURE: CT ABDOMEN PELVIS WO CONTRAST CT ABDOMEN PELVIS WO CONTRAST Indication: Abdominal pain, diarrhea. Exposure: One or more of the following individualized dose reduction techniques were utilized for this examination: 1. Automated exposure control 2. Adjustment of the mA and/or kV according to patient size 3. Use of iterative reconstruction technique. Comparison: March 14, 2019 Technique: No intravenous contrast given. No oral contrast per request. Findings: Evaluation of solid viscera, bowel and vasculature is compromised by the noncontrast technique. Tiny nodule in the right lower lobe measures 3 mm, series 2, image 15, similar to prior study. Mild atelectasis and/or infiltrate identified in lung bases. Coronary artery calcifications. No large pericardial effusion or pleural effusion in the visualized chest. Liver appears unremarkable. Spleen is upper limits normal in size. This appears similar. Pancreas appears unremarkable. No evidence of adrenal mass. No evidence of hydronephrosis or renal calculus. Gallbladder surgically absent. Aorta is mildly calcified and ectatic, no evidence of gross aneurysm. No evidence of pathologic lymph node enlargement. There is some air/gas density adjacent to the second portion of the duodenum may represent a diverticulum, also seen previously and appears similar. No significant small bowel distention. Anterior abdominal wall hernia is again identified at the midline containing fat and small bowel. No evidence of bowel obstruction. No evidence of acute colitis. Mild stool within the colon as well as some density presumably from prior contrast administration. The appendix is not clearly visualized. No evidence of ascites. No evidence of pneumoperitoneum. Limited distention of the urinary bladder. No evidence of pelvic mass. Degenerative spondylosis. Right convexity lumbar scoliosis. Lumbar stenosis. Surgical changes along the anterior abdominal wall presumably due to prior surgical repair, are again seen. Mild deformity of approximately T10 vertebral body, likely a mild chronic developmental deformity. This is unchanged. Severe degenerative changes at both hips. IMPRESSION: 1. No acute process identified in the abdomen or pelvis. 2. Mild atelectasis and/or infiltrates in the lung bases. Stable 3 mm right lower lobe pulmonary nodule. 3. Anterior abdominal wall hernia containing small bowel loops. No evidence of bowel obstruction.[] Course & Med Decision Making Course & Med Decision Making Pertinent Labs and Imaging studies reviewed. (See chart for details) Patient is 69-year-old female presented to the emergency room for complaints of lower abdominal pain and diarrhea. Workup included a CBC, CMP, PT/INR, UA, lipase, magnesium, and CT abdomen and pelvis without fluids. The patient did not have any bowel movements while in the emergency department. UA was concerning for a nitrite positive urinary tract infection, patient was given 1 g of Rocephin IV while in the department. Unable to collect stool specimen and therefore Was sent home with the patient and the patient's daughter was instructed to bring a sample back to the hospital if one is collected. CBC is unremarkable, PT/INR within normal limits; CMP revealed a glucose of [address] abdomen and pelvis revealed no acute findings, bilateral infiltrates versus atelectasis was found in bilateral lower lobes of lungs, this is most likely atelectasis as patient has no shortness of breath or cough. 1430-I spoke with the patient's daughter, Viky, and advised of the urinary tract infections and bilateral infiltrates/atelectasis in lower lobes of lungs. I informed the patient's daughter of the Keflex that is being prescribed, as the patient has a normal white blood cell count, normal vital signs, and is not in any respiratory distress. I feel that the abnormalities found in the lungs on the CT scanner are likely atelectasis. I encouraged the patient's daughter to monitor her mother for worsening cough, shortness of breath, or respiratory distress. Patient's daughter stated that her mother has been complaining of pain at her right lower extremity amputation site recently, I advised the patient's daughter that I would evaluate this site thoroughly prior to patient being discharged. Will send patient back home via ambulance and informed the ambulance to call patient's daughter when they are in route to her home. Patient's daughter verbalized an understanding of home care, medications, follow-up, and return to ED instructions and was in agreement with the plan of care. [] Dragon Disclaimer Dragon Disclaimer This electronic medical record was generated, in whole or in part, using a voice recognition dictation system. Departure Departure Impression: Primary Impression: UTI (urinary tract infection) Additional Impressions: Diarrhea Abdominal pain Disposition: 01 HOME, SELF-CARE Condition: STABLE Referrals: Yao HEATON MD (PCP) Patient Instructions: Abdominal Pain (Nonspecific), Diarrhea, [id number], Diet for Diarrhea, Adult, Urinary Tract Infection, [id number] Additional Instructions: Fill prescription(s) and use as directed. Avoid bladder irritants such as caffeine, carbonation, and spicy foods. Recommend clear fluids for the next 24 hours. Then you may advance to bland foods such as bananas, rice, applesauce, and dry toast. Follow-up with your primary care doctor in the next 1-2 days. Return to the emergency room if your symptoms worsen, you develop a fever, cough, or shortness of breath. Scripts Cephalexin (CEPHALEXIN) 500 Mg Capsule 1 CAP PO QID for 7 Days, #28 CAP 0 Refills Prov: ZAINAB CHICAS APRN 08/10/19 Problem Qualifiers Primary Impression: UTI (urinary tract infection) Urinary tract infection type: site unspecified Hematuria presence: without hematuria Qualified Codes: N39.0 - Urinary tract infection, site not specified Additional Impressions: Diarrhea Diarrhea type: unspecified type Qualified Codes: R19.7 - Diarrhea, unspecified Abdominal pain Abdominal location: lower abdomen, unspecified Qualified Codes: R10.30 - Lower abdominal pain, unspecified ZAINAB CHICAS APRN Aug 10, 2019 14:35
== END 2019-08-10 16:10 | disposition home or self-care (01) ==
LOC: ER 11:30
DX: N39.0 Urinary tract infection, site not specified (principal); J44.9 Chronic obstructive pulmonary disease, unspecified; E11.9 Type 2 diabetes mellitus without complications; K21.9 Gastro-esophageal reflux disease without esophagitis; I10 Essential (primary) hypertension; Z90.89 Acquired absence of other organs; Z90.49 Acquired absence of other specified parts of digestive tract; Z87.891 Personal history of nicotine dependence; Z98.890 Other specified postprocedural states
CPT/HCPCS: 36415; 74176; 80053; 81001; 83690; 83735; 85025; 85610; 85730; 87086; 96361; 96374; 99284; J0696; J7030

== ENCOUNTER 2019-08-16 08:40 | Emergency (ER) | payer OTHER ==
[~2019-08-16] VITALS: Ht 157.5 cm; Wt 120.0 kg
--- NOTE | 2019-08-16 09:13 | PHYS DOC ---
Past Medical History Past Medical History: COPD, Diabetes-Type II, GERD, Hypertension, MRSA, Other Additional Past Medical Histor: "bladder problems", [place]PER[place]ALEM[place], [place]; right AKA Past Surgical History: Appendectomy, Cholecystectomy, Colectomy, Tonsillectomy, Other Additional Past Surgical Histo: R AKA, hernia Smoking Status: Former Smoker Alcohol Use: None Drug Use: None Adult General Chief Complaint Chief Complaint: DIARRHEA HPI HPI Patient is a 69 year old female brought to ER by EMS with a chief complaint of diarrhea x2 weeks. Patient states that she has been worked up for this diarrhea in the past and is currently being treated for C. difficile. Daughter also called the ER stating that patient has a stool sample ready to be taken to her PCP. Patient was brought to the ER for reevaluation. Patient states that whenever she eats anything she has diarrhea. Patient states that she is currently being treated with oral antibiotics for the diarrhea. Review of Systems Review of Systems Patient does complain of diarrhea. Patient denies fever, chills, nausea, vomiting, abdominal pain, chest pain, shortness of breath. All other systems were reviewed and found to be within normal limits, except as documented in this note. Allergies Allergies Allergies Coded Allergies Type Severity Reaction Last Updated Verified codeine Allergy Intermediate TOLERATES MORPHINE 01/07/17 Yes meperidine Adverse Reaction Intermediate Nausea and Vomiting 01/07/17 Yes Physical Exam Physical Exam Constitutional: Well developed, well nourished, no acute distress, non-toxic appearance. [] HENT: Normocephalic, atraumatic Eyes: PERRLA, EOMI Neck: Normal range of motion Cardiovascular:Heart rate regular rhythm, no murmur [] Lungs & Thorax: Bilateral breath sounds clear to auscultation [] Abdomen: Bowel sounds normal, soft, no tenderness Extremities: No tenderness, no cyanosis, no clubbing, ROM intact, no edema. [] Neurologic: Alert and oriented X 3 Current Patient Data Vital Signs Vital Signs Date Time Temp Pulse Resp B/P (MAP) Pulse Ox O2 Delivery O2 Flow Rate FiO2 08/16/19 12:00 66 123/61 (81) 92 Room Air 08/16/19 08:45 99.2 18 99.2 Lab Values Laboratory Tests Test 08/16/19 09:10 White Blood Count 7.3 x10^3/uL (4.0-11.0) Red Blood Count 4.34 x10^6/uL (3.50-5.40) Hemoglobin 13.2 g/dL (12.0-15.5) Hematocrit 39.1 % (36.0-47.0) Mean Corpuscular Volume 90 fL (79-100) Mean Corpuscular Hemoglobin 31 pg (25-35) Mean Corpuscular Hemoglobin Concent 34 g/dL (31-37) Red Cell Distribution Width 13.7 % (11.5-14.5) Platelet Count 210 x10^3/uL (140-400) Neutrophils (%) (Auto) 66 % (31-73) Lymphocytes (%) (Auto) 20 % (24-48) L Monocytes (%) (Auto) 12 % (0-9) H Eosinophils (%) (Auto) 2 % (0-3) Basophils (%) (Auto) 1 % (0-3) Neutrophils # (Auto) 4.8 x10^3/uL (1.8-7.7) Lymphocytes # (Auto) 1.5 x10^3/uL (1.0-4.8) Monocytes # (Auto) 0.9 x10^3/uL (0.0-1.1) Eosinophils # (Auto) 0.1 x10^3/uL (0.0-0.7) Basophils # (Auto) 0.0 x10^3/uL (0.0-0.2) Sodium Level 137 mmol/L (136-145) Potassium Level 3.6 mmol/L (3.5-5.1) Chloride Level 101 mmol/L (98-107) Carbon Dioxide Level 31 mmol/L (21-32) Anion Gap 5 (6-14) L Blood Urea Nitrogen 12 mg/dL (7-20) Creatinine 1.1 mg/dL (0.6-1.0) H Estimated GFR (Cockcroft-Gault) 49.2 BUN/Creatinine Ratio 11 (6-20) Glucose Level 93 mg/dL (70-99) Calcium Level 8.3 mg/dL (8.5-10.1) L Total Bilirubin 0.5 mg/dL (0.2-1.0) Aspartate Amino Transferase (AST) 21 U/L (15-37) Alanine Aminotransferase (ALT) 10 U/L (14-59) L Alkaline Phosphatase 57 U/L (46-116) Total Protein 6.7 g/dL (6.4-8.2) Albumin 2.7 g/dL (3.4-5.0) L Albumin/Globulin Ratio 0.7 (1.0-1.7) L Laboratory Tests 08/16/19 09:10 Laboratory Tests 08/16/19 09:10 EKG EKG [] Radiology/Procedures Radiology/Procedures [] Course & Med Decision Making Course & Med Decision Making Pertinent Labs reviewed. (See chart for details) Ordered labs. labs are wnl. Patient can follow-up with her PCP as an outpatient. Discussed with daughter. Patient to take her stool sample to PCPs office for further testing. Due to the recent coronavirus pandemic, recommend that patient be seen as an ou tpatient and not stay longer in the hospital. Discussed results and plan of care with patient. Patient is instructed to follow up with PCP in one to 2 days. Appropriate discharge instructions given to patient to return to the ED or to seek immediate medical evaluation. Patient is instructed to return to the ED if symptoms worsen or if any concerns. Dragon Disclaimer Dragon Disclaimer This electronic medical record was generated, in whole or in part, using a voice recognition dictation system. Departure Departure Impression: Primary Impression: Chronic diarrhea Disposition: 01 HOME, SELF-CARE Condition: STABLE Referrals: Yao HEATON MD (PCP) Patient Instructions: Chronic Diarrhea Additional Instructions: Patient is instructed to follow up with PCP in one to 2 days. Appropriate discharge instructions given to patient to return to the ED or to seek immediate medical evaluation. Patient is instructed to return to the ED if symptoms worsen or if any concerns. IRAIDA REINOSO DO Aug 16, 2019 09:13
[2019-08-16 09:22] LABS: BASO % 1 % (0-3); EOS # 0.1 x10^3/uL (0.0-0.7); EOS % 2 % (0-3); HEMATOCRIT 39.1 % (36.0-47.0); HEMOGLOBIN 13.2 g/dL (12.0-15.5); LYMPH # 1.5 x10^3/uL (1.0-4.8); LYMPH % 20 % (24-48); MEAN CORPUSCULAR HEMOGLOBIN 31 pg (25-35); MEAN CORPUSCULAR HGB CONC 34 g/dL (31-37); MEAN CORPUSCULAR VOLUME 90 fL (79-100); MONO # 0.9 x10^3/uL (0.0-1.1); MONO % 12 % (0-9); NEUT # 4.8 x10^3/uL (1.8-7.7); NEUT % 66 % (31-73); PLATELET COUNT 210 x10^3/uL (140-400); RED BLOOD COUNT 4.34 x10^6/uL (3.50-5.40); RED CELL DISTRIBUTION WIDTH 13.7 % (11.5-14.5); WHITE BLOOD COUNT 7.3 x10^3/uL (4.0-11.0)
[2019-08-16 09:31] LABS: CALCIUM 8.3 mg/dL (8.5-10.1); CREATININE 1.1 mg/dL (0.6-1.0); GFR 49.2; POTASSIUM 3.6 mmol/L (3.5-5.1)
[2019-08-16 09:38] LABS: ALBUMIN 2.7 g/dL (3.4-5.0); ALBUMIN/GLOBULIN RATIO 0.7 (1.0-1.7); TOTAL BILIRUBIN 0.5 mg/dL (0.2-1.0); TOTAL PROTEIN 6.7 g/dL (6.4-8.2)
[2019-08-16 12:00] VITALS: BP 123/61
== END 2019-08-16 12:00 | disposition home or self-care (01) ==
LOC: ER 08:40
DX: K52.9 Noninfective gastroenteritis and colitis, unspecified (principal); J44.9 Chronic obstructive pulmonary disease, unspecified; K21.9 Gastro-esophageal reflux disease without esophagitis; E11.9 Type 2 diabetes mellitus without complications; I10 Essential (primary) hypertension; Z87.891 Personal history of nicotine dependence; Z90.89 Acquired absence of other organs; Z90.49 Acquired absence of other specified parts of digestive tract; Z88.1 Allergy status to other antibiotic agents; Z88.5 Allergy status to narcotic agent
CPT/HCPCS: 36415; 80053; 85025; 99283

== ENCOUNTER → 2019-08-16 | Outpatient (CLI) | payer OTHER ==
[~2019-08-16] MED LIST changes: +CEPH500C PO
[2019-08-16 08:45] VITALS: BP 185/93
== END | disposition home or self-care (01) ==
LOC: LAB 10:07
PROVIDERS: ATTEND Internal Medicine Gastroenterology
DX: R19.7 Diarrhea, unspecified (principal)
CPT/HCPCS: 87045; 87177; 87209; 87329; 87493

== ENCOUNTER 2020-05-26 00:25 | Inpatient (IN) | payer OTHER ==
[~2020-05-26] VITALS: Ht 157.5 cm; Wt 85.4 kg
[~2020-05-26 00:25] MED LIST changes: -ACYC800T PO; +ACYC800T88 PO; +CEFD300C PO; -LISI-334 PO; +LISI10TA16 PO; -LISI10TA2 PO; +LISI20TA18 PO
[2020-05-26] MEDS ORDERED: cefTRIAXone IV Push 1 GM VIAL. IVP ONE (00:45)
[2020-05-26 01:31] LABS: BASO % 0 % (0-3); EOS # 0.1 x10^3/uL (0.0-0.7); EOS % 2 % (0-3); HEMATOCRIT 37.7 % (36.0-47.0); HEMOGLOBIN 12.7 g/dL (12.0-15.5); LYMPH # 0.3 x10^3/uL (1.0-4.8); LYMPH % 5 % (24-48); MEAN CORPUSCULAR HEMOGLOBIN 31 pg (25-35); MEAN CORPUSCULAR HGB CONC 34 g/dL (31-37); MEAN CORPUSCULAR VOLUME 91 fL (79-100); MONO # 0.4 x10^3/uL (0.0-1.1); MONO % 6 % (0-9); NEUT # 5.2 x10^3/uL (1.8-7.7); NEUT % 87 % (31-73); PLATELET COUNT 159 x10^3/uL (140-400); RED BLOOD COUNT 4.15 x10^6/uL (3.50-5.40); RED CELL DISTRIBUTION WIDTH 13.7 % (11.5-14.5); WHITE BLOOD COUNT 5.9 x10^3/uL (4.0-11.0)
--- NOTE | 2020-05-26 01:39 | RAD ---
INDICATION: Reason: sepsis ER#19 / Spl. Instructions: / History: COMPARISON: June 2018 FINDINGS: Single view of chest obtained. Cardiac mediastinal silhouette is prominent with tortuous prominent aortic contour again seen. Elevation of the right hemidiaphragm. Prominence of the bilateral pulmonary hilum again seen. Mild linear opacities lung bases IMPRESSION: * Mild linear opacities at the lung bases which could be secondary to atelectasis with early infiltr ate not excluded. * Elevated right hemidiaphragm. Electronically signed by: Tawanda Brooks MD (05/26/2020 1:13 AM) [id number]
[2020-05-26 01:48] LABS: BILIRUBIN,URINE NEGATIVE (NEG); CLARITY,URINE CLEAR; COLOR,URINE YELLOW; NITRITE,URINE POSITIVE (NEG); PROTEIN,URINE NEGATIVE (NEG-TRACE); UROBILINOGEN,URINE 0.2 mg/dL (0.2 mg/dL)
[2020-05-26 01:49] LABS: CALCIUM 8.5 mg/dL (8.5-10.1); GFR 54.8; POTASSIUM 4.1 mmol/L (3.5-5.1)
[2020-05-26 01:55] LABS: ALBUMIN 2.8 g/dL (3.4-5.0); ALBUMIN/GLOBULIN RATIO 0.7 (1.0-1.7); TOTAL BILIRUBIN 0.4 mg/dL (0.2-1.0)
[2020-05-26 02:00] LABS: BACTERIA,URINE MANY /HPF (0-FEW); RBC,URINE OCC /HPF (0-2); WBC,URINE TNTC /HPF (0-4)
[2020-05-26] MEDS ORDERED: IOHEXOL 300 MG/ML 100ML VIAL. IV ONE (02:00)
[2020-05-26] MEDS ORDERED: IOHEXOL 240 MG/ML 50ML VIAL. PO ONE (02:00)
[2020-05-26] MEDS ORDERED: CONTRAST GIVEN. MC PRN (02:00)
--- NOTE | 2020-05-26 02:11 | ED.ADGEN ---
Past Medical History Past Medical History: COPD, Diabetes-Type II, GERD, Hypertension, MRSA, Other Additional Past Medical Histor: "bladder problems", [place], [place] Past Surgical History: Appendectomy, Cholecystectomy, Colectomy, Tonsillectomy, Other Additional Past Surgical Histo: R AKA, hernia Smoking Status: Never Smoker Alcohol Use: None Drug Use: None General Adult EDM: Chief Complaint: FEVER HPI: HPI: Patient is a 70-year-old female who presents to the emergency room complaining of fever. History is limited due to patient's severe hearing loss. According to EMS family called because she had a fever of 102.1 at home. They deny other symptoms. Patient states that she is having right upper quadrant abdominal pain that started today. She denies any vomiting but does have some nausea. She denies diarrhea or constipation. She has not had any cough, shortness of breath, chest pain, URI symptoms, urinary symptoms. Review of Systems: Review of Systems: Complete ROS is negative unless otherwise documented in HPI Current Medications: Current Medications Medications (Trade) Dose Ordered Sig/Haim Start Time Stop Time Status Last Admin Dose Admin Ceftriaxone Sodium (Rocephin) 1 gm 1X ONCE 05/26/20 00:45 05/26/20 00:46 DC 05/26/20 01:42 1 GM Info (CONTRAST GIVEN -- Rx MONITORING) 1 each PRN DAILY PRN 05/26/20 02:00 05/28/20 01:59 Iohexol (Omnipaque 240 Mg/ml) 30 ml 1X ONCE 05/26/20 02:00 05/26/20 02:01 DC 05/26/20 01:50 30 ML Iohexol (Omnipaque 300 Mg/ml) 75 ml 1X ONCE 05/26/20 02:00 05/26/20 02:01 DC 05/26/20 03:25 75 ML Sodium Chloride 1,000 ml @ 75 mls/hr [id number] 05/26/20 05:30 05/27/20 05:29 05/26/20 05:39 75 MLS/HR Allergies: Allergies: Allergies Coded Allergies Type Severity Reaction Last Updated Verified codeine Allergy Intermediate TOLERATES MORPHINE 02/06/20 Yes meperidine Adverse Reaction Intermediate Nausea and Vomiting 02/06/20 Yes Physical Exam: PE: General: Awake, alert, NAD. Well Nourished, well hydrated. Cooperative HEENT: Atraumatic, EOMI, PERRL, airway patent, moist oral mucosa Neck: Supple, trachea midline Respiratory: CTA bilaterally, normal effort, no wheezing/crackles CV: RRR, no murmur, cap refill <2 GI: Soft, nondistended, right upper quadrant tenderness, no masses MSK: No obvious deformities Skin: Warm, dry, intact Neuro: A&O x3, speech NL, sensory and motor grossly intact, no focal deficits Psych: Normal affect, normal mood, not suicidal or homicidal Current Patient Data: Labs: Laboratory Tests Test 05/26/20 00:33 05/26/20 01:20 05/26/20 01:25 Sodium Level 141 mmol/L (136-145) Potassium Level 4.1 mmol/L (3.5-5.1) Chloride Level 108 mmol/L (98-107) H Carbon Dioxide Level 28 mmol/L (21-32) Anion Gap 5 (6-14) L Blood Urea Nitrogen 19 mg/dL (7-20) Creatinine 1.0 mg/dL (0.6-1.0) Estimated GFR (Cockcroft-Gault) 54.8 BUN/Creatinine Ratio 19 (6-20) Glucose Level 149 mg/dL (70-99) H Lactic Acid Level 1.1 mmol/L (0.4-2.0) Calcium Level 8.5 mg/dL (8.5-10.1) Total Bilirubin 0.4 mg/dL (0.2-1.0) Aspartate Amino Transferase (AST) 22 U/L (15-37) Alanine Aminotransferase (ALT) 14 U/L (14-59) Alkaline Phosphatase 68 U/L (46-116) Total Protein 7.0 g/dL (6.4-8.2) Albumin 2.8 g/dL (3.4-5.0) L Albumin/Globulin Ratio 0.7 (1.0-1.7) L White Blood Count 5.9 x10^3/uL (4.0-11.0) Red Blood Count 4.15 x10^6/uL (3.50-5.40) Hemoglobin 12.7 g/dL (12.0-15.5) Hematocrit 37.7 % (36.0-47.0) Mean Corpuscular Volume 91 fL (79-100) Mean Corpuscular Hemoglobin 31 pg (25-35) Mean Corpuscular Hemoglobin Concent 34 g/dL (31-37) Red Cell Distribution Width 13.7 % (11.5-14.5) Platelet Count 159 x10^3/uL (140-400) Neutrophils (%) (Auto) 87 % (31-73) H Lymphocytes (%) (Auto) 5 % (24-48) L Monocytes (%) (Auto) 6 % (0-9) Eosinophils (%) (Auto) 2 % (0-3) Basophils (%) (Auto) 0 % (0-3) Neutrophils # (Auto) 5.2 x10^3/uL (1.8-7.7) Lymphocytes # (Auto) 0.3 x10^3/uL (1.0-4.8) L Monocytes # (Auto) 0.4 x10^3/uL (0.0-1.1) Eosinophils # (Auto) 0.1 x10^3/uL (0.0-0.7) Basophils # (Auto) 0.0 x10^3/uL (0.0-0.2) Segmented Neutrophils % 87 % (35-66) H Band Neutrophils % 2 % (0-9) Lymphocytes % 5 % (24-48) L Monocytes % 4 % (0-10) Eosinophils % 2 % (0-5) Platelet Estimate Adequate (ADEQUATE) Urine Collection Type U cath Urine Color Yellow Urine Clarity Clear Urine pH 6.0 (<5.0-8.0) Urine Specific [place] 1.020 (1.000-1.030) Urine Protein Negative mg/dL (NEG-TRACE) Urine Glucose (UA) Negative mg/dL (NEG) Urine Ketones (Stick) Negative mg/dL (NEG) Urine Blood Negative (NEG) Urine Nitrite Positive (NEG) Urine Bilirubin Negative (NEG) Urine Urobilinogen Dipstick 0.2 mg/dL (0.2 mg/dL) Urine Leukocyte Esterase Large (NEG) Urine RBC Occ /HPF (0-2) Urine WBC Tntc /HPF (0-4) Urine Squamous Epithelial Cells Few /LPF Urine Bacteria Many /HPF (0-FEW) Urine Mucus Mod /LPF Laboratory Tests 05/26/20 01:20 Laboratory Tests 05/26/20 00:33 Vital Signs: Vital Signs Date Time Temp Pulse Resp B/P (MAP) Pulse Ox O2 Delivery O2 Flow Rate FiO2 05/26/20 05:37 98.1 79 15 113/87 (96) 99 Nasal Cannula 2.0 98.1 EKG: EKG: [] Heart Score: Risk Factors: Risk Factors: DM, Current or recent (<one month) smoker, HTN, HLP, family history of CAD, obesity. Risk Scores: Score 0 - 3: 2.5% MACE over next 6 weeks - Discharge Home Score 4 - 6: 20.3% MACE over next 6 weeks - Admit for Clinical Observation Score 7 - 10: 72.7% MACE over next 6 weeks - Early Invasive Strategies Radiology/Procedures: Radiology/Procedures: [] Course & Med Decision Making: Course & Med Decision Making Pertinent Labs and Imaging studies reviewed. (See chart for details) Patient is a 70 year-old female who presents to the Emergency Room complaining of abdominal pain, fever, nausea. On exam, patient has epigastric and right upp er quadrant tenderness. Due to patients history, age, and exam work up will need to be done to evaluate for intra-abdominal pathology. Work up ordered includes CBC, CMP, lipase, UA, CT abdomen and pelvis. Sepsis work-up was also done including blood cultures and patient was given Rocephin due to patient meeting sepsis criteria. Patient does have a very significant UTI. Given her sepsis and UTI she will be admitted to the hospital for further care and evaluation. Dragon Disclaimer: Dragon Disclaimer: This electronic medical record was generated, in whole or in part, using a voice recognition dictation system. Departure Departure Impression: Primary Impression: Fever Additional Impression: UTI (urinary tract infection) Disposition: ADMITTED INPT THIS HOSP Condition: STABLE Referrals: Yao HEATON MD (PCP) Problem Qualifiers JERROD SWENSON MD May 26, 2020 02:11
--- NOTE | 2020-05-26 03:55 | RAD ---
INDICATION: Reason: abd pain, fever, OMNI 240 30 ML IV, OMNI 300 60 ML IV / Spl. Instructions: DRINK ING @150 SCAN AT 325 / History: . COMPARISON: August 10, 2019 TECHNIQUE: Axial CT images obtained through the abdomen and pelvis with contrast. One or more of the following individualized dose reduction techniques were utilized for this examinat ion: 1. Automated exposure control; 2. Adjustment of the mA and/or kV according to patient size; 3 . Use of iterative reconstruction technique. FINDINGS: Severe calcific atherosclerosis. Partial visualization of coronary artery calcific atherosclerosis. Postcholecystectomy changes. Liver appears mildly low density. Nonspecific but can be seen with mild fatty infiltration. Duodenal diverticulum. No peripancreatic fluid collection. Spleen unremarkable. Atrophic appearance of the left kidney. No left-sided hydronephrosis. Urinary bladder is partially distended. Uterus is visualized. Right renal peripelvic cysts versus distention of calyces again seen. Low-density right renal cortex lesion measuring approximately 10 mm. Colonic diverticulosis. Appendix not visualized. Postoperative changes to the anterior abdominal wall with some bowing in the area with loops of bowel extending into this area of laxity including just superficial to the right rectus musculature. No dilated loops of bowel to suggest obstruction. Osseous demineralization. Scoliotic curvature of the spine. Degenerative changes of the spine with multilevel central canal and neural foraminal stenosis. IMPRESSION: * No evidence of bowel obstruction. * Indeterminate right renal lesion. If further clarification is desired nonemergent outpatient ultra sound could better assess whether this is solid or cystic. * Severe degenerative changes the spine with multilevel central canal neural foraminal stenosis as w ell as scoliotic curvature. Electronically signed by: Tawanda Brooks MD (05/26/2020 3:47 AM) [id number]
[2020-05-26 05:02] LABS: % BANDS 2 % (0-9); % EOS 2 % (0-5); % LYMPHS 5 % (24-48); % MONOS 4 % (0-10); % SEGS 87 % (35-66); PLT ESTIMATE ADEQUATE (ADEQUATE)
[2020-05-26] MEDS: IV NORMAL SALINE 1000ML BAG 1,000 ML IV SCH ×2 (05:39→20:35)
[2020-05-26 07:00] VITALS: BP 135/65
[2020-05-26] MEDS ORDERED: DOCUSATE SODIUM 100 MG CAPSULE. PO PRN (07:30)
--- NOTE | 2020-05-26 07:35 | PDOC1 ---
History and Physical Date of Admission Date of Admission DATE: 05/26/20 TIME: 07:34 Identification/Chief Complaint Chief Complaint Fevers Source Source: Caregiver, Chart review, Patient History of Present Illness History of Present Illness Ms Alexis is a 70-year-old female w/ PMHx COPD, DM2, GERD, HTN, urinary retention, s/p right AKA, Hard of hearing who presents to the emergency room complaining of fever. History is limited due to patient's severe hearing loss. According to EMS family called because she had a fever of 102.1F at home. They deny other symptoms. Patient states that she is having right upper quadrant abdominal pain that started 05/25/20. She denies any vomiting but does have some nausea. She denies diarrhea or constipation. She has not had any cough, shortness of breath, chest pain, URI symptoms, urinary symptoms. She was seen by a visiting nursing who told her she has a UTI. Labs with WBC 5.9, Hb 12.7, platelets 159, NA 141, K4.1, BUN 19, CR 1, glucose 149, albumin 2.8, UA positive for leukocyte esterase and nitrites. Febrile to 101.5 F in the ED. Chest radiograph with right hemidiaphragm elevated and linear opacities at lung bases CT abdomen pelvis with indeterminate right renal lesion and spine with multilevel central canal neural foraminal stenosis as well as scoliotic curvature. Admitted for further care. Past Medical History Cardiovascular: HTN Pulmonary: No pertinent hx, Other GI: GERD Heme/Onc: Anemia NOS Hepatobiliary: Cholelithiasis Psych: No pertinent hx Musculoskeletal: Osteoarthritis Rheumatologic: No pertinent hx Infectious disease: Other Renal/: Urinary Incontinence, Other Endocrine: No pertinent hx Past Surgical History Past Surgical History: Appendectomy, Cholecystectomy, Hernia Repair, Tonsillectomy, Other Family History Family History: Asthma, Diabetes Social History Smoke: No ALCOHOL: none Drugs: None Current Problem List Problem List Problems Medical Problems: (1) Fever Status: Acute Current Medications Current Medications Current Medications Ceftriaxone Sodium (Rocephin) 1 gm 1X ONCE IVP Last administered on 05/26/20at 01:42; Start 05/26/20 at 00:45; Stop 05/26/20 at 00:46; Status DC Iohexol (Omnipaque 240 Mg/ml) 30 ml 1X ONCE PO Last administered on 05/26/20at 01:50; Start 05/26/20 at 02:00; Stop 05/26/20 at 02:01; Status DC Iohexol (Omnipaque 300 Mg/ml) 75 ml 1X ONCE IV Last administered on 05/26/20at 03:25; Start 05/26/20 at 02:00; Stop 05/26/20 at 02:01; Status DC Info (CONTRAST GIVEN -- Rx MONITORING) 1 each PRN DAILY PRN MC SEE COMMENTS; Start 05/26/20 at 02:00; Stop 05/28/20 at 01:59 Sodium Chloride 1,000 ml @ 75 mls/hr [id number] IV Last administered on 05/26/20at 05:39; Start 05/26/20 at 05:30; Stop 05/27/20 at 05:29 Active Scripts Active Vancomycin Hcl 500 Mg Vial 125 Mg PO [id number] 30 Days Take 125 mg every 6 hours for 7 days, then take 125 mg twice a day for 7 days, then take 125 mg once a day for 7 days, then take 125 mg every 3 days for 14 days Cefdinir 300 Mg Capsule 300 Mg PO BID 7 Days Combivent Respimat Inhal (Ipratropium/Albuterol Sulfate) 4 Gm Aer.w.adap 2 Inh IH QID 30 Days Reported Nystatin 15 Gm Powder 1 Kia TP BID Vesicare (Solifenacin Succinate) 10 Mg Tablet 1 Tab PO DAILY Flomax (Tamsulosin Hcl) 0.4 Mg Cap.er.24h 1 Cap PO HS Lisinopril 10 Mg Tablet 10 Mg PO DAILY Allergies Allergies: Coded Allergies: codeine (Verified Allergy, Intermediate, TOLERATES MORPHINE, 02/06/20) TOLERATES MORPHINE meperidine (Verified Adverse Reaction, Intermediate, Nausea and Vomiting, 02/06/20) Physical Exam General: Alert, Oriented X3, Cooperative, mild distress HEENT: Atraumatic, PERRLA, EOMI, Mucous membr. moist/pink, Other (Hard of hearing) Lungs: Other (Bibasilar crackles) Heart: S1S2, RRR, no thrills, no rubs, no gallops, no murmurs Abdomen: Normal bowel sounds, Soft, No hepatosplenomegaly, No masses, Other (Suprapubic and right flank tenderness) Rectal Exam: not examined Extremities: No clubbing, No cyanosis, No edema, Normal pulses, Other (S/p right BKA with redness and swelling) Skin: Other (Intertrigo in abdominal folds and right leg stump) Neuro: Normal speech, Strength at 5/5 X4 ext, Normal tone, Sensation intact, Cranial nerves 3-12 NL, Reflexes 2+ Psych/Mental Status: Mental status NL, Mood NL Vitals Vitals Vital Signs Date Time Temp Pulse Resp B/P (MAP) Pulse Ox O2 Delivery O2 Flow Rate FiO2 05/26/20 06:03 67 126/62 (83) 100 Nasal Cannula 2.0 05/26/20 05:37 98.1 15 98.1 Labs Labs Laboratory Tests Test 05/26/20 00:33 05/26/20 01:20 05/26/20 01:25 Sodium Level 141 mmol/L (136-145) Potassium Level 4.1 mmol/L (3.5-5.1) Chloride Level 108 mmol/L (98-107) Carbon Dioxide Level 28 mmol/L (21-32) Anion Gap 5 (6-14) Blood Urea Nitrogen 19 mg/dL (7-20) Creatinine 1.0 mg/dL (0.6-1.0) Estimated GFR (Cockcroft-Gault) 54.8 BUN/Creatinine Ratio 19 (6-20) Glucose Level 149 mg/dL (70-99) Lactic Acid Level 1.1 mmol/L (0.4-2.0) Calcium Level 8.5 mg/dL (8.5-10.1) Total Bilirubin 0.4 mg/dL (0.2-1.0) Aspartate Amino Transf (AST/SGOT) 22 U/L (15-37) Alanine Aminotransferase (ALT/SGPT) 14 U/L (14-59) Alkaline Phosphatase 68 U/L (46-116) Total Protein 7.0 g/dL (6.4-8.2) Albumin 2.8 g/dL (3.4-5.0) Albumin/Globulin Ratio 0.7 (1.0-1.7) White Blood Count 5.9 x10^3/uL (4.0-11.0) Red Blood Count 4.15 x10^6/uL (3.50-5.40) Hemoglobin 12.7 g/dL (12.0-15.5) Hematocrit 37.7 % (36.0-47.0) Mean Corpuscular Volume 91 fL (79-100) Mean Corpuscular Hemoglobin 31 pg (25-35) Mean Corpuscular Hemoglobin Concent 34 g/dL (31-37) Red Cell Distribution Width 13.7 % (11.5-14.5) Platelet Count 159 x10^3/uL (140-400) Neutrophils (%) (Auto) 87 % (31-73) Lymphocytes (%) (Auto) 5 % (24-48) Monocytes (%) (Auto) 6 % (0-9) Eosinophils (%) (Auto) 2 % (0-3) Basophils (%) (Auto) 0 % (0-3) Neutrophils # (Auto) 5.2 x10^3/uL (1.8-7.7) Lymphocytes # (Auto) 0.3 x10^3/uL (1.0-4.8) Monocytes # (Auto) 0.4 x10^3/uL (0.0-1.1) Eosinophils # (Auto) 0.1 x10^3/uL (0.0-0.7) Basophils # (Auto) 0.0 x10^3/uL (0.0-0.2) Segmented Neutrophils % 87 % (35-66) Band Neutrophils % 2 % (0-9) Lymphocytes % 5 % (24-48) Monocytes % 4 % (0-10) Eosinophils % 2 % (0-5) Platelet Estimate Adequate (ADEQUATE) Urine Collection Type U cath Urine Color Yellow Urine Clarity Clear Urine pH 6.0 (<5.0-8.0) Urine Specific Casanova 1.020 (1.000-1.030) Urine Protein Negative mg/dL (NEG-TRACE) Urine Glucose (UA) Negative mg/dL (NEG) Urine Ketones (Stick) Negative mg/dL (NEG) Urine Blood Negative (NEG) Urine Nitrite Positive (NEG) Urine Bilirubin Negative (NEG) Urine Urobilinogen Dipstick 0.2 mg/dL (0.2 mg/dL) Urine Leukocyte Esterase Large (NEG) Urine RBC Occ /HPF (0-2) Urine WBC Tntc /HPF (0-4) Urine Squamous Epithelial Cells Few /LPF Urine Bacteria Many /HPF (0-FEW) Urine Mucus Mod /LPF Laboratory Tests Test 05/26/20 00:33 05/26/20 01:20 05/26/20 01:25 Sodium Level 141 mmol/L (136-145) Potassium Level 4.1 mmol/L (3.5-5.1) Chloride Level 108 mmol/L (98-107) Carbon Dioxide Level 28 mmol/L (21-32) Anion Gap 5 (6-14) Blood Urea Nitrogen 19 mg/dL (7-20) Creatinine 1.0 mg/dL (0.6-1.0) Estimated GFR (Cockcroft-Gault) 54.8 BUN/Creatinine Ratio 19 (6-20) Glucose Level 149 mg/dL (70-99) Lactic Acid Level 1.1 mmol/L (0.4-2.0) Calcium Level 8.5 mg/dL (8.5-10.1) Total Bilirubin 0.4 mg/dL (0.2-1.0) Aspartate Amino Transf (AST/SGOT) 22 U/L (15-37) Alanine Aminotransferase (ALT/SGPT) 14 U/L (14-59) Alkaline Phosphatase 68 U/L (46-116) Total Protein 7.0 g/dL (6.4-8.2) Albumin 2.8 g/dL (3.4-5.0) Albumin/Globulin Ratio 0.7 (1.0-1.7) White Blood Count 5.9 x10^3/uL (4.0-11.0) Red Blood Count 4.15 x10^6/uL (3.50-5.40) Hemoglobin 12.7 g/dL (12.0-15.5) Hematocrit 37.7 % (36.0-47.0) Mean Corpuscular Volume 91 fL (79-100) Mean Corpuscular Hemoglobin 31 pg (25-35) Mean Corpuscular Hemoglobin Concent 34 g/dL (31-37) Red Cell Distribution Width 13.7 % (11.5-14.5) Platelet Count 159 x10^3/uL (140-400) Neutrophils (%) (Auto) 87 % (31-73) Lymphocytes (%) (Auto) 5 % (24-48) Monocytes (%) (Auto) 6 % (0-9) Eosinophils (%) (Auto) 2 % (0-3) Basophils (%) (Auto) 0 % (0-3) Neutrophils # (Auto) 5.2 x10^3/uL (1.8-7.7) Lymphocytes # (Auto) 0.3 x10^3/uL (1.0-4.8) Monocytes # (Auto) 0.4 x10^3/uL (0.0-1.1) Eosinophils # (Auto) 0.1 x10^3/uL (0.0-0.7) Basophils # (Auto) 0.0 x10^3/uL (0.0-0.2) Segmented Neutrophils % 87 % (35-66) Band Neutrophils % 2 % (0-9) Lymphocytes % 5 % (24-48) Monocytes % 4 % (0-10) Eosinophils % 2 % (0-5) Platelet Estimate Adequate (ADEQUATE) Urine Collection Type U cath Urine Color Yellow Urine Clarity Clear Urine pH 6.0 (<5.0-8.0) Urine Specific Casanova 1.020 (1.000-1.030) Urine Protein Negative mg/dL (NEG-TRACE) Urine Glucose (UA) Negative mg/dL (NEG) Urine Ketones (Stick) Negative mg/dL (NEG) Urine Blood Negative (NEG) Urine Nitrite Positive (NEG) Urine Bilirubin Negative (NEG) Urine Urobilinogen Dipstick 0.2 mg/dL (0.2 mg/dL) Urine Leukocyte Esterase Large (NEG) Urine RBC Occ /HPF (0-2) Urine WBC Tntc /HPF (0-4) Urine Squamous Epithelial Cells Few /LPF Urine Bacteria Many /HPF (0-FEW) Urine Mucus Mod /LPF Images Images Chest radiograph: Single view of chest obtained. Cardiac mediastinal silhouette is prominent with tortuous prominent aortic contour again seen. Elevation of the right hemidiaphragm. Prominence of the bilateral pulmonary hilum again seen. Mild linear opacities lung bases IMPRESSION: * Mild linear opacities at the lung bases which could be secondary to atelectasis with early infiltrate not excluded. * Elevated right hemidiaphragm. CT abdomen/pelvis: Severe calcific atherosclerosis. Partial visualization of coronary artery calcific atherosclerosis. Postcholecystectomy changes. Liver appears mildly low density. Nonspecific but can be seen with mild fatty infiltration. Duodenal diverticulum. No peripancreatic fluid collection. Spleen unremarkable. Atrophic appearance of the left kidney. No left-sided hydronephrosis. Urinary bladder is partially distended. Uterus is visualized. Right renal peripelvic cysts versus distention of calyces again seen. Low- density right renal cortex lesion measuring approximately 10 mm. Colonic diverticulosis. Appendix not visualized. Postoperative changes to the anterior abdominal wall with some bowing in the area with loops of bowel extending into this area of laxity including just superficial to the right rectus musculature. No dilated loops of bowel to suggest obstruction. Osseous demineralization. Scoliotic curvature of the spine. Degenerative changes of the spine with multilevel central canal and neural foraminal stenosis. IMPRESSION: * No evidence of bowel obstruction. * Indeterminate right renal lesion. If further clarification is desired nonemergent outpatient ultrasound could better assess whether this is solid or cystic. * Severe degenerative changes the spine with multilevel central canal neural foraminal stenosis as well as scoliotic curvature. VTE Prophylaxis Ordered VTE Prophylaxis Devices: No VTE Pharmacological Prophylaxi: Yes Assessment/Plan Assessment/Plan A/P: Sepsis - likely from UTI, less likely from right AKA stump. Will cont empiric antibiotics and r/o COVID 19 as well UTI - empiric antibiotics Right stump candidal infection - topical nystatin. Wound care to see Abnormal CXR - will r/o COVID 19, treat for COPD COPD - inhalers DM2 - sliding scale GERD - ppi HTN - cont home meds Urinary retention - cont home meds, PVR, may need straight cath prn Hard of hearing - needs hearing aid assistance Moderate protein calorie malnutrition - federal mediator to see Right renal lesion - will need outpatient f/u Multilevel central canal neural foraminal stenosis as well as scoliotic curvat ure - PT FEN - ADA diet PPX - lovenox FULL CODE Dispo - inpatient 2 midnights. Justifications for Admission Other Justification diarrhea and UTI HELNE HUMMEL MD May 26, 2020 07:35
[2020-05-26] MEDS ORDERED: DEXTROSE 50% 25 GM / 50ML DISP.SYRIN. IV PRN (07:45)
[2020-05-26] MEDS: INSULIN LISPRO 300 UNITS/3 ML VIAL. SQ SCH ×3 (08:00→16:45)
[2020-05-26] MEDS: ENOXAPARIN 40 MG/0.4 ML SYRINGE. SQ SCH (09:19)
[2020-05-26 11:00] VITALS: BP 123/58
[2020-05-26] MEDS ORDERED: LISI20TA18 PO (12:33)
[2020-05-26] MEDS ORDERED: CITA20TA9 PO (12:41)
[2020-05-26] MEDS ORDERED: ONDA4TAB7 PO (12:41)
[2020-05-26] MEDS ORDERED: TRAZ-118 PO (12:41)
--- NOTE | 2020-05-26 12:43 | NUR ---
This RN verified pt's home medication list with Viky, daughter at [phone].
[2020-05-26] MEDS ORDERED: ONDANSETRON ODT 4 MG TAB.RAPDIS. PO PRN (14:45)
[2020-05-26 15:00] VITALS: BP 121/63
[2020-05-26] MEDS: ACETAMINOPHEN 325 MG TABLET. PO PRN (17:24)
[2020-05-26 19:02] VITALS: BP 133/70
[2020-05-26] MEDS: TAMSULOSIN 0.4 MG CAP.ER.24H. PO SCH (20:33)
[2020-05-26] MEDS: traZODone 50 MG TABLET. PO SCH (20:33)
[2020-05-26] MEDS: cefTRIAXone IV Push 1 GM VIAL. IVP SCH (20:34)
[2020-05-26] MEDS: PSYLLIUM HUSK (SUGAR FREE) 1 PKT PACKET PO SCH (20:34)
[2020-05-26] MEDS: NYSTATIN TOPICAL POWDER 15GM BOTTLE. TP SCH (20:35)
[2020-05-26 22:39] VITALS: BP 140/70
[2020-05-27 03:06] VITALS: BP 168/79
[2020-05-27 07:00] VITALS: BP 168/79
[2020-05-27] MEDS: INSULIN LISPRO 300 UNITS/3 ML VIAL. SQ SCH ×3 (08:00→16:41)
--- NOTE | 2020-05-27 08:31 | PDOC ---
[facility] PROGRESS NOTE Date of Service DOS: DATE: 05/27/20 TIME: 08:31 Chief Complaint Chief Complaint A/P: Sepsis - likely from UTI, less likely from right AKA stump. Will cont empiric antibiotics and r/o COVID 19 as well UTI - empiric antibiotics Right stump candidal infection - topical nystatin. Wound care to see Abnormal CXR - will r/o COVID 19, treat for COPD COPD - inhalers DM2 - sliding scale GERD - ppi HTN - cont home meds Urinary retention - cont home meds, PVR, may need straight cath prn Hard of hearing - needs hearing aid assistance Moderate protein calorie malnutrition - residential sales associate to see Right renal lesion - will need outpatient f/u Multilevel central canal neural foraminal stenosis as well as scoliotic curvature - PT FEN - ADA diet PPX - lovenox FULL CODE Dispo - inpatient 2 midnights. History of Present Illness History of Present Illness Ms Alexis is a 70-year-old female w/ PMHx COPD, DM2, GERD, HTN, urinary retention, s/p right AKA, Hard of hearing who presents to the emergency room complaining of fever. History is limited due to patient's severe hearing loss. According to EMS family called because she had a fever of 102.1F at home. They deny other symptoms. Patient states that she is having right upper quadrant abdominal pain that started 05/25/20. She denies any vomiting but does have some nausea. She denies diarrhea or constipation. She has not had any cough, shortness of breath, chest pain, URI symptoms, urinary symptoms. She was seen by a visiting nursing who told her she has a UTI. Labs with WBC 5.9, Hb 12.7, platelets 159, NA 141, K4.1, BUN 19, CR 1, glucose 149, albumin 2.8, UA positive for leukocyte esterase and nitrites. Febrile to 101.5 F in the ED. Chest radiograph with right hemidiaphragm elevated and linear opacities at lung bases CT abdomen pelvis with indeterminate right renal lesion and spine with multilevel central canal neural foraminal stenosis as well as scoliotic curvature. Admitted for further care. Afebrile overnight. Blood cultures 1 out of 2 bottles positive for GPC in clusters. He feels a little improved today. No new chest pain a little bit of shortness of breath. Pain in her right stump improved. Still with some abdominal pain and early satiety. No BM Vitals/I&O Vitals/I&O: Vital Signs Date Time Temp Pulse Resp B/P (MAP) Pulse Ox O2 Delivery O2 Flow Rate FiO2 05/27/20 08:23 Room Air 05/27/20 03:06 97.8 66 18 168/79 (108) 97 1.0 97.8 I & O 05/26/20 05/26/20 05/27/20 15:00 23:00 07:00 Intake Total 120 ml 120 ml Balance 120 ml 120 ml Physical Exam General: Alert, Oriented X3, Cooperative, mild distress Lungs: Wheezing Abdomen: Normal bowel sounds, Soft, No hepatosplenomegaly, No masses, Other (Suprapubic and right flank tenderness) Extremities: No clubbing, No cyanosis, No edema, Normal pulses, Other (S/p right BKA with redness and swelling) Skin: Other (Intertrigo in abdominal folds and right leg stump) Labs Labs: Laboratory Tests Test 05/26/20 11:31 05/26/20 16:43 05/26/20 20:01 05/27/20 08:06 Glucose (Fingerstick) 88 mg/dL (70-99) 114 mg/dL (70-99) 112 mg/dL (70-99) 86 mg/dL (70-99) Assessment and Plan Assessmemt and Plan Problems Medical Problems: (1) Fever Status: Acute Comment Review of Relevant I have reviewed the following items marcio (where applicable) has been applied. Medications: Current Medications Medications (Trade) Dose Ordered Sig/Haim Route PRN Reason Start Time Stop Time Status Last Admin Dose Admin Enoxaparin Sodium (Lovenox 40mg Syringe) 40 mg DAILY SQ 05/26/20 09:00 05/26/20 09:19 Ceftriaxone Sodium (Rocephin) 1 gm Q24H IVP 05/26/20 21:00 05/26/20 20:34 Nystatin (Nystop) 1 paloma BID TP 05/26/20 21:00 05/26/20 20:35 Tamsulosin HCl (Flomax) 0.4 mg HS PO 05/26/20 21:00 05/26/20 20:33 Trazodone HCl (Desyrel) 50 mg QHS PO 1/9/21 21:00 05/26/20 20:33 Psyllium Hydrophilic Mucilloid (Metamucil Fiber Packet) 1 pkt QHS PO 05/26/20 21:00 05/26/20 20:34 Justifications for Admission Other Justification diarrhea and UTI HELEN HUMMEL MD May 27, 2020 08:31
[2020-05-27] MEDS: CITALOPRAM 20 MG TABLET. PO SCH (08:49)
[2020-05-27] MEDS: LISINOPRIL 20 MG TABLET PO SCH (08:49)
[2020-05-27] MEDS: ENOXAPARIN 40 MG/0.4 ML SYRINGE. SQ SCH (08:49)
[2020-05-27] MEDS: NYSTATIN TOPICAL POWDER 15GM BOTTLE. TP SCH ×2 (08:50→22:10)
[2020-05-27 11:00] VITALS: BP 164/117
[2020-05-27] MEDS ORDERED: METOCLOPRAMIDE HCL 10 MG/2 ML VIAL. IVP ONE (13:45)
[2020-05-27 14:26] LABS: ALBUMIN 2.3 g/dL (3.4-5.0); ALBUMIN/GLOBULIN RATIO 0.6 (1.0-1.7); CALCIUM 7.7 mg/dL (8.5-10.1); CREATININE 0.9 mg/dL (0.6-1.0); GFR 61.9; POTASSIUM 4.1 mmol/L (3.5-5.1); TOTAL BILIRUBIN 0.3 mg/dL (0.2-1.0); TOTAL PROTEIN 6.1 g/dL (6.4-8.2)
[2020-05-27 15:00] VITALS: BP 177/74
--- NOTE | 2020-05-27 18:39 | NUR ---
Pt noted to have a small, open area in the inner medial buttock. Area found by this RN this shift while thoroughly cleansing pt. Difficult to evaluate on normal skin evaluation due to nature of location and size. Pt's coccyx area remains intact otherwise. Calazyme cream and foam dressing applied. Pt's R stump also cleansed and further assessed, able to spread stump. Unable to visualize previously. Wound noted, measuring 1.7 x 2.5, foul drainage noted. Foam applied. WC consult in place. Pictures placed in chart.
[2020-05-27 19:00] VITALS: BP 147/70
[2020-05-27] MEDS: PSYLLIUM HUSK (SUGAR FREE) 1 PKT PACKET PO SCH (22:11)
[2020-05-27] MEDS: LACTOBACILLUS RHAMNOSUS GG 1 CAPSULE. PO SCH (22:11)
[2020-05-27] MEDS: TAMSULOSIN 0.4 MG CAP.ER.24H. PO SCH (22:11)
[2020-05-27] MEDS: cefTRIAXone IV Push 1 GM VIAL. IVP SCH (22:11)
[2020-05-27] MEDS: traZODone 50 MG TABLET. PO SCH (22:11)
[2020-05-27 23:46] VITALS: BP 149/84
[2020-05-28 03:30] VITALS: BP 153/72
--- NOTE | 2020-05-28 06:39 | NUR ---
Spoke to daughter Viky over the phone, she left her number for wound care to call if they have any questions regarding pt's wound. [phone].
[2020-05-28 07:00] VITALS: BP 158/72
[2020-05-28] MEDS: INSULIN LISPRO 300 UNITS/3 ML VIAL. SQ SCH ×3 (08:00→16:50)
--- NOTE | 2020-05-28 08:34 | PDOC ---
PROGRESS NOTES Date of Service: DATE: 05/28/20 TIME: 08:33 Chief Complaint Chief Complaint IMPRESSION Sepsis - likely from UTI, less likely from right AKA stump. Will cont empiric antibiotics and r/o COVID 19 as well UTI - empiric antibiotics Right stump candidal infection - topical nystatin. Wound care to see Abnormal CXR - will r/o COVID 19, treat for COPD COPD - inhalers DM2 - sliding scale GERD - ppi HTN - cont home meds Urinary retention - cont home meds, PVR, may need straight cath prn Hard of hearing - needs hearing aid assistance Moderate protein calorie malnutrition - profile grinder to see Right renal lesion - will need outpatient f/u Multilevel central canal neural foraminal stenosis as well as scoliotic curvature - PT PLAN ADMIT FEN - ADA diet PPX - lovenox FULL CODE Dispo - inpatient 2 midnights. PT/OT IV ROCEPHIN Q 24 HRS 1 GM History of Present Illness History of Present Illness Ms Marshall is a 70-year-old female w/ PMHx COPD, DM2, GERD, HTN, urinary retention, s/p right AKA, Hard of hearing who presents to the emergency room complaining of fever. History is limited due to patient's severe hearing loss. According to EMS family called because she had a fever of 102.1F at home. They deny other symptoms. Patient states that she is having right upper quadrant abdominal pain that started 05/25/20. She denies any vomiting but does have some nausea. She denies diarrhea or constipation. She has not had any cough, shortness of breath, chest pain, URI symptoms, urinary symptoms. She was seen by a visiting nursing who told her she has a UTI. Labs with WBC 5.9, Hb 12.7, platelets 159, NA 141, K4.1, BUN 19, CR 1, glucose 149, albumin 2.8, UA positive for leukocyte esterase and nitrites. Febrile to 101.5 F in the ED. Chest radiograph with right hemidiaphragm elevated and linear opacities at lung bases CT abdomen pelvis with indeterminate right renal lesion and spine with mul tilevel central canal neural foraminal stenosis as well as scoliotic curvature. Admitted for further care. Afebrile overnight. Blood cultures 1 out of 2 bottles positive for GPC in clusters. He feels a little improved today. No new chest pain a little bit of shortness of breath. Pain in her right stump improved. Still with some abdominal pain and early satiety. No BM Vitals Vitals Vital Signs Date Time Temp Pulse Resp B/P (MAP) Pulse Ox O2 Delivery O2 Flow Rate FiO2 05/28/20 07:00 99.1 71 18 158/72 (100) 98 Nasal Cannula 2.0 99.1 Physical Exam General: Alert, Oriented X3, Cooperative, No acute distress, mild distress Heart: Regular rate Lungs: Wheezing Abdomen: Normal bowel sounds, Soft, No hepatosplenomegaly, No masses, Other (Suprapubic and right flank tenderness) Extremities: No clubbing, No cyanosis, No edema, Normal pulses, Other (S/p right BKA with redness and swelling) Skin: Other (Intertrigo in abdominal folds and right leg stump) Labs LABS ATIENT: ADRIANO MARSHALL ACCOUNT: [id number] : 1950 LOCATION: ER AGE: 70 SEX: F EXAM STATUS: REG ER ORD. PHYSICIAN: JERROD SWENSON MD REASON: abd pain, fever, OMNI 240 30 ML IV, OMNI 300 60 ML IV PROCEDURE: CT ABD PELV W/ORAL&IV CONTRAST INDICATION: Reason: abd pain, fever, OMNI 240 30 ML IV, OMNI 300 60 ML IV / Spl. Instructions: DRINKING @150 SCAN AT 325 / History: . COMPARISON: August 10, 2019 TECHNIQUE: Axial CT images obtained through the abdomen and pelvis with contrast. One or more of the following individualized dose reduction techniques were utilized for this examination: 1. Automated exposure control; 2. Adjustment of the mA and/or kV according to patient size; 3. Use of iterative reconstruction technique. FINDINGS: Severe calcific atherosclerosis. Partial visualization of coronary artery calcific atherosclerosis. Postcholecystectomy changes. Liver appears mildly low density. Nonspecific but can be seen with mild fatty infiltration. Duodenal diverticulum. No peripancreatic fluid collection. Spleen unremarkable. Atrophic appearance of the left kidney. No left-sided hydronephrosis. Urinary bladder is partially distended. Uterus is visualized. Right renal peripelvic cysts versus distention of calyces again seen. Low- density right renal cortex lesion measuring approximately 10 mm. Colonic diverticulosis. Appendix not visualized. Postoperative changes to the anterior abdominal wall with some bowing in the area with loops of bowel extending into this area of laxity including just aranda perficial to the right rectus musculature. No dilated loops of bowel to suggest obstruction. Osseous demineralization. Scoliotic curvature of the spine. Degenerative changes of the spine with multilevel central canal and neural foraminal stenosis. IMPRESSION: * No evidence of bowel obstruction. * Indeterminate right renal lesion. If further clarification is desired nonemergent outpatient ultrasound could better assess whether this is solid or cystic. * Severe degenerative changes the spine with multilevel central canal neural foraminal stenosis as well as scoliotic curvature. Electronically signed by: Roberto Muller MD (05/26/2020 3:47 AM) [id number] DICTATED and SIGNED BY: ROBERTO MULLER MD DATE: 05/26/20 [id number] DPOA REVIEW 19 MIN to patient portal What Is a Power of Digital Community Manager? A power of cardiac rehabilitation specialist (POA) is a legal document giving one person (the agent or xhdetotv-ri-lwup) the power to act for another person (the principal). The agent can have broad legal authority or limited authority to make legal decisions about the principal's property, finances or medical care. The power of cardiac rehabilitation specialist is frequently used in the event of a principal's illness or disability, or when the principal can't be present to sign necessary legal documents for financial transactions. A power of cardiac rehabilitation specialist can end for a number of reasons, such as when the principal dies, the principal revokes it, a court invalidates it, the principal divorces their spouse, who happens to be the agent, or the agent can no longer carry out the outlined responsibilities. Conventional POAs lapse when the creator becomes incapacitated, but a durable POA remains in force to enable the agent to manage the creators affairs, and a springing POA comes into effect only if and when the creator of the POA becomes incapacitated. A medical or healthcare POA enables an agent to make medical decisions on behalf of an incapacitated person. [employer] A power of cardiac rehabilitation specialist (POA) is a legal document giving one person, the agent or bjaqorqe-ka-zvaj the power to act for another person, the principal. The agent can have broad legal authority or limited authority to make decisions about the principal's property, finances or medical care. The power of cardiac rehabilitation specialist is often used when a principal becomes ill or disabled, or when they can't be present to sign necessary legal documents for financial transactions. Understanding Power of Digital Community Manager A power of cardiac rehabilitation specialist should be considered when planning for long-term care. There are different types of POAs that fall under either a general power of cardiac rehabilitation specialist or limited power of cardiac rehabilitation specialist. A general power of cardiac rehabilitation specialist acts on behalf of the principal in any and all matters, as allowed by the state. The agent under a general POA agreement may be authorized to take care of issues such as handling bank accounts, signing checks, selling property and assets like stocks, f A limited power of cardiac rehabilitation specialist gives the agent the power to act on behalf of the principal in specific matters or events. For example, the limited POA may explicitly state that the agent is only allowed to manage the principal's halfway accounts. A limited POA may also be limited to a specific period of time (e.g., if the principal will be out of the country for, say, two years). Most mcclellan of cardiac rehabilitation specialist documents allow an agent to represent the principal in all property and financial matters as long as the principals mental state of mind is good. If a situation occurs where the principal becomes incapable of making decisions for him or herself, the POA agreement would automatically end. However, someone who wants the POA to remain in effect after the persons health deteriorates would need to sign a durable power of cardiac rehabilitation specialist (DPOA). What is an advance directive? An advance directive is a legal document that says how you want to be cared for if you are unable to make decisions. You can include what medical treatments you would want and who you would trust to make decisions for you. An advance directive can also include other legal documents. A living will is a list of treatment preferences. It can be used to indicate whether you would want cardiopulmonary resuscitation (CPR), tube feedings, a breathing machine, or certain medicines, like antibiotics. The durable power of cardiac rehabilitation specialist for health care document identifies the person you would want to make medical decisions for you. This person is also called a proxy. Your proxy should be familiar with your values and wishes. How do I get started? You can get advance directive documents for your state from your doctor's office or from http://www.caringinfo.org. Review the forms, and ask your doctor if you have any questions. Pick a person to be your proxy, and talk it over with that person. Laboratory Tests Test 05/27/20 10:57 05/27/20 13:55 05/27/20 16:36 05/27/20 20:00 Glucose (Fingerstick) 103 mg/dL (70-99) 106 mg/dL (70-99) 111 mg/dL (70-99) Sodium Level 141 mmol/L (136-145) Potassium Level 4.1 mmol/L (3.5-5.1) Chloride Level 108 mmol/L (98-107) Carbon Dioxide Level 26 mmol/L (21-32) Anion Gap 7 (6-14) Blood Urea Nitrogen 15 mg/dL (7-20) Creatinine 0.9 mg/dL (0.6-1.0) Estimated GFR (Cockcroft-Gault) 61.9 BUN/Creatinine Ratio 17 (6-20) Glucose Level 116 mg/dL (70-99) Calcium Level 7.7 mg/dL (8.5-10.1) Total Bilirubin 0.3 mg/dL (0.2-1.0) Aspartate Amino Transf (AST/SGOT) 34 U/L (15-37) Alanine Aminotransferase (ALT/SGPT) 20 U/L (14-59) Alkaline Phosphatase 71 U/L (46-116) Total Protein 6.1 g/dL (6.4-8.2) Albumin 2.3 g/dL (3.4-5.0) Albumin/Globulin Ratio 0.6 (1.0-1.7) Test 05/28/20 08:02 Glucose (Fingerstick) 99 mg/dL (70-99) Assessment and Plan Assessmemt and Plan Problems Medical Problems: (1) Fever Status: Acute Comment Review of Relevant I have reviewed the following items marcio (where applicable) has been applied. Labs Laboratory Tests Test 05/26/20 11:31 05/26/20 13:04 05/26/20 16:43 05/26/20 20:01 Glucose (Fingerstick) 88 mg/dL (70-99) 114 mg/dL (70-99) 112 mg/dL (70-99) Coronavirus (PCR) Not detected (Not Detected) Test 05/27/20 08:06 05/27/20 10:57 05/27/20 13:55 05/27/20 16:36 Glucose (Fingerstick) 86 mg/dL (70-99) 103 mg/dL (70-99) 106 mg/dL (70-99) Sodium Level 141 mmol/L (136-145) Potassium Level 4.1 mmol/L (3.5-5.1) Chloride Level 108 mmol/L (98-107) Carbon Dioxide Level 26 mmol/L (21-32) Anion Gap 7 (6-14) Blood Urea Nitrogen 15 mg/dL (7-20) Creatinine 0.9 mg/dL (0.6-1.0) Estimated GFR (Cockcroft-Gault) 61.9 BUN/Creatinine Ratio 17 (6-20) Glucose Level 116 mg/dL (70-99) Calcium Level 7.7 mg/dL (8.5-10.1) Total Bilirubin 0.3 mg/dL (0.2-1.0) Aspartate Amino Transf (AST/SGOT) 34 U/L (15-37) Alanine Aminotransferase (ALT/SGPT) 20 U/L (14-59) Alkaline Phosphatase 71 U/L (46-116) Total Protein 6.1 g/dL (6.4-8.2) Albumin 2.3 g/dL (3.4-5.0) Albumin/Globulin Ratio 0.6 (1.0-1.7) Test 05/27/20 20:00 05/28/20 08:02 Glucose (Fingerstick) 111 mg/dL (70-99) 99 mg/dL (70-99) Laboratory Tests Test 05/27/20 10:57 05/27/20 13:55 05/27/20 16:36 05/27/20 20:00 Glucose (Fingerstick) 103 mg/dL (70-99) 106 mg/dL (70-99) 111 mg/dL (70-99) Sodium Level 141 mmol/L (136-145) Potassium Level 4.1 mmol/L (3.5-5.1) Chloride Level 108 mmol/L (98-107) Carbon Dioxide Level 26 mmol/L (21-32) Anion Gap 7 (6-14) Blood Urea Nitrogen 15 mg/dL (7-20) Creatinine 0.9 mg/dL (0.6-1.0) Estimated GFR (Cockcroft-Gault) 61.9 BUN/Creatinine Ratio 17 (6-20) Glucose Level 116 mg/dL (70-99) Calcium Level 7.7 mg/dL (8.5-10.1) Total Bilirubin 0.3 mg/dL (0.2-1.0) Aspartate Amino Transf (AST/SGOT) 34 U/L (15-37) Alanine Aminotransferase (ALT/SGPT) 20 U/L (14-59) Alkaline Phosphatase 71 U/L (46-116) Total Protein 6.1 g/dL (6.4-8.2) Albumin 2.3 g/dL (3.4-5.0) Albumin/Globulin Ratio 0.6 (1.0-1.7) Test 05/28/20 08:02 Glucose (Fingerstick) 99 mg/dL (70-99) Microbiology 05/26/20 Urine Culture - Final, Complete 05/26/20 Blood Culture - Final, Complete Medications Current Medications Ceftriaxone Sodium (Rocephin) 1 gm 1X ONCE IVP Last administered on 05/26/20at 01:42; Start 05/26/20 at 00:45; Stop 05/26/20 at 00:46; Status DC Iohexol (Omnipaque 240 Mg/ml) 30 ml 1X ONCE PO Last administered on 05/26/20at 01:50; Start 05/26/20 at 02:00; Stop 05/26/20 at 02:01; Status DC Iohexol (Omnipaque 300 Mg/ml) 75 ml 1X ONCE IV Last administered on 05/26/20at 03:25; Start 05/26/20 at 02:00; Stop 05/26/20 at 02:01; Status DC Info (CONTRAST GIVEN -- Rx MONITORING) 1 each PRN DAILY PRN MC SEE COMMENTS; Start 05/26/20 at 02:00; Stop 05/28/20 at 01:59; Status DC Sodium Chloride 1,000 ml @ 75 mls/hr [id number] IV Last administered on 05/26/20at 20:35; Start 05/26/20 at 05:30; Stop 05/27/20 at 05:29; Status DC Ondansetron HCl (Zofran) 4 mg PRN Q4HRS PRN IV NAUSEA/VOMITING; Start 05/26/20 at 07:30 Acetaminophen (Tylenol) 650 mg PRN Q4HRS PRN PO TEMP OVER 100.4F Last administered on 05/26/20at 17:24; Start 05/26/20 at 07:30 Docusate Sodium (Colace) 100 mg PRN BID PRN PO HARD STOOLS; Start 05/26/20 at 07:30 Enoxaparin Sodium (Lovenox 40mg Syringe) 40 mg DAILY SQ Last administered on 05/27/20at 08:49; Start 05/26/20 at 09:00 Ceftriaxone Sodium (Rocephin) 1 gm Q24H IVP Last administered on 05/27/20at 22:11; Start 05/26/20 at 21:00 Insulin Human Lispro (HumaLOG) 0-7 UNITS TIDWMEALS SQ ; Start 05/26/20 at 08:00 Dextrose (Dextrose 50%-Water Syringe) 12.5 gm PRN Q15MIN PRN IV SEE COMMENTS; Start 05/26/20 at 07:45 Citalopram Hydrobromide (CeleXA) 20 mg DAILY PO Last administered on 05/27/20at 08:49; Start 05/27/20 at 09:00 Lisinopril (Prinivil) 20 mg DAILY PO Last administered on 05/27/20at 08:49; Start 05/27/20 at 09:00 Nystatin (Nystop) 1 kia BID TP Last administered on 05/27/20at 22:10; Start 05/26/20 at 21:00 Tamsulosin HCl (Flomax) 0.4 mg HS PO Last administered on 05/27/20at 22:11; Start 05/26/20 at 21:00 Trazodone HCl (Desyrel) 50 mg QHS PO Last administered on 05/27/20at 22:11; Start 05/26/20 at 21:00 Ondansetron HCl (Zofran Odt) 4 mg PRN Q4HRS PRN PO NAUSEA/VOMITING; Start 05/26/20 at 14:45 Psyllium Hydrophilic Mucilloid (Metamucil Fiber Packet) 1 pkt QHS PO Last administered on 05/27/20at 22:11; Start 05/26/20 at 21:00 Olanzapine (ZyPREXA ZYDIS) 5 mg PRN BID PRN PO ANXIETY / AGITATION; Start 05/26/20 at 14:30 Lactobacillus Rhamnosus (Culturelle) 1 cap BID PO Last administered on 05/27/20at 22:11; Start 05/27/20 at 21:00 Metoclopramide HCl (Reglan Vial) 10 mg 1X ONCE IVP Last administered on 05/27/20at 13:46; Start 05/27/20 at 13:45; Stop 05/27/20 at 13:46; Status DC Active Scripts Active Combivent Respimat Inhal (Ipratropium/Albuterol Sulfate) 4 Gm Aer.w.adap 2 Inh IH QID 30 Days Reported Trazodone Hcl 50 Mg Tablet 1 Tab PO QHS Celexa (Citalopram Hydrobromide) 20 Mg Tablet 1 Tab PO DAILY Zofran (Ondansetron Hcl) 4 Mg Tablet 1 Tab PO PRN Q4HRS PRN Lisinopril 20 Mg Tablet 1 Tab PO DAILY Nystatin 15 Gm Powder 1 Kia TP BID Vesicare (Solifenacin Succinate) 10 Mg Tablet 1 Tab PO DAILY Flomax (Tamsulosin Hcl) 0.4 Mg Cap.er.24h 1 Cap PO HS Vitals/I & O Vital Sign - Last 24 Hours 05/27/20 05/27/20 05/27/20 05/27/20 08:49 11:00 15:00 19:00 Temp 99.1 98.6 98.5 99.1 98.6 98.5 Pulse 66 70 79 70 Resp 22 24 20 B/P (MAP) 168/79 164/117 (133) 177/74 (108) 147/70 (95) Pulse Ox 94 93 93 O2 Delivery Nasal Cannula Nasal Cannula Nasal Cannula O2 Flow Rate 1.0 1.0 2.0 05/27/20 05/27/20 05/28/20 05/28/20 20:00 23:46 03:30 07:00 Temp 98.3 98.6 99.1 98.3 98.6 99.1 Pulse 58 63 71 Resp 18 18 18 B/P (MAP) 149/84 (105) 153/72 (99) 158/72 (100) Pulse Ox 93 98 98 O2 Delivery Room Air Nasal Cannula Nasal Cannula Nasal Cannula O2 Flow Rate 2.0 2.0 2.0 2.0 Intake and Output 05/27/20 05/27/20 05/28/20 15:00 23:00 07:00 Intake Total 1240 ml 120 ml Balance 1240 ml 120 ml Justicifation of Admission Dx: Justifications for Admission: Justification of Admission Dx: N/A ABHISHEK DANIELSON MD May 28, 2020 08:34
[2020-05-28] MEDS: ENOXAPARIN 40 MG/0.4 ML SYRINGE. SQ SCH (10:02)
[2020-05-28] MEDS: CITALOPRAM 20 MG TABLET. PO SCH (10:02)
[2020-05-28] MEDS: LACTOBACILLUS RHAMNOSUS GG 1 CAPSULE. PO SCH ×2 (10:03→20:30)
[2020-05-28] MEDS: NYSTATIN TOPICAL POWDER 15GM BOTTLE. TP SCH ×2 (10:03→20:30)
[2020-05-28] MEDS: LISINOPRIL 20 MG TABLET PO SCH (10:03)
[2020-05-28] MEDS: ONDANSETRON PF 4 MG/2 ML VIAL. IV PRN ×3 (10:13→20:29)
[2020-05-28 11:00] VITALS: BP 174/78
--- NOTE | 2020-05-28 14:03 | NUR ---
Wound/Ostomy Care Wound Type/Assessment: intertrigo to abdomen and gluteal fold with excoriated periwound. Areas cleansed and assessed. Treatment Recommendations/Plan: Nystatin applied to abdomen, nystatin with calazime to gluteal fold, aquacel ag and nystatin to right AKA. Education provided: PU prevention and WC POC. Offloading surface/device: pillows, frequent turns Recommended Referrals/Tests: na Discharge Recommendations for dressings: continue as above noted
[2020-05-28 15:00] VITALS: BP 168/76
--- NOTE | 2020-05-28 17:26 | NUR ---
SW following for discharge planning. SW spoke with RN and reviewed chart. SW consulted as pt at high risk for readmission. Pt currently on 2l 02, ADA diet, IV Rocephin, COVID negative. PT note states pt is at baseline. Pt from home with [facility] through [facility]. Discharge plan is return home with resumption of care. Pt will require stretcher transport home when stable. SW following.
[2020-05-28] MEDS: TAMSULOSIN 0.4 MG CAP.ER.24H. PO SCH (20:30)
[2020-05-28] MEDS: traZODone 50 MG TABLET. PO SCH (20:30)
[2020-05-28] MEDS: cefTRIAXone IV Push 1 GM VIAL. IVP SCH (20:31)
[2020-05-28] MEDS: PSYLLIUM HUSK (SUGAR FREE) 1 PKT PACKET PO SCH (20:40)
[2020-05-28 21:28] VITALS: BP 163/77
[2020-05-28 23:00] VITALS: BP 141/75
[2020-05-29 03:21] VITALS: BP 142/67
[2020-05-29 07:14] VITALS: BP 147/75
[2020-05-29] MEDS: ENOXAPARIN 40 MG/0.4 ML SYRINGE. SQ SCH (07:56)
[2020-05-29] MEDS: INSULIN LISPRO 300 UNITS/3 ML VIAL. SQ SCH ×3 (07:56→16:41)
[2020-05-29] MEDS: LACTOBACILLUS RHAMNOSUS GG 1 CAPSULE. PO SCH ×2 (07:57→19:57)
[2020-05-29] MEDS: LISINOPRIL 20 MG TABLET PO SCH (07:57)
[2020-05-29] MEDS: NYSTATIN TOPICAL POWDER 15GM BOTTLE. TP SCH ×2 (07:58→19:57)
[2020-05-29] MEDS: CITALOPRAM 20 MG TABLET. PO SCH (07:58)
[2020-05-29 11:15] VITALS: BP 144/80
--- NOTE | 2020-05-29 11:27 | PDOC ---
PROGRESS NOTES Date of Service: DATE: 05/29/20 TIME: 11:26 Chief Complaint Chief Complaint IMPRESSION Sepsis - likely from UTI, less likely from right AKA stump. Will cont empiric antibiotics and COVID 19 NEG UTI - empiric antibiotics Right stump candidal infection - topical nystatin. 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 PT/OT IV ROCEPHIN Q 24 HRS 1 GM GROWTH OF GRAM POSITIVE COCCI on 05/28/20 at 0700 FINAL ID= [STAPHYLOCOCCUS HOMINIS MRS] STAPHYLOCOCCUS HOMINIS MRS CONSULT ID History of Present Illness History of Present Illness Ms Alexis is a 70-year-old female w/ PMHx COPD, DM2, GERD, HTN, urinary retention, s/p right AKA, Hard of hearing who presents to the emergency room complaining of fever. History is limited due to patient's severe hearing loss. According to EMS family called because she had a fever of 102.1F at home. They deny other symptoms. Patient states that she is having right upper quadrant abdominal pain that started 05/25/20. She denies any vomiting but does have some nausea. She denies diarrhea or constipation. She has not had any cough, shortness of breath, chest pain, URI symptoms, urinary symptoms. She was seen by a visiting nursing who told her she has a UTI. Labs with WBC 5.9, Hb 12.7, platelets 159, NA 141, K4.1, BUN 19, CR 1, glucose 149, albumin 2.8, UA positive for leukocyte esterase and nitrites. Febrile to 101.5 F in the ED. Chest radiograph with right hemidiaphragm elevated and linear opacities at lung bases CT abdomen pelvis with indeterminate right renal lesion and spine with multilevel central canal neural foraminal stenosis as well as scoliotic curvatur e. Admitted for further care. Afebrile overnight. Blood cultures 1 out of 2 bottles positive for GPC in clusters. He feels a little improved today. No new chest pain a little bit of shortness of breath. Pain in her right stump improved. Still with some abdominal pain and early satiety. No BM Vitals Vitals Vital Signs Date Time Temp Pulse Resp B/P (MAP) Pulse Ox O2 Delivery O2 Flow Rate FiO2 05/29/20 08:00 Nasal Cannula 2.0 05/29/20 07:57 81 142/67 05/29/20 07:14 98.8 18 96 98.8 Physical Exam General: Alert, Oriented X3, Cooperative, No acute distress Heart: Regular rate Lungs: Clear, Wheezing Abdomen: Normal bowel sounds, Soft, No hepatosplenomegaly, No masses, Other (Suprapubic and right flank tenderness) Extremities: No clubbing, No cyanosis, No edema, Normal pulses, Other (S/p ri ght BKA with redness and swelling) Skin: Other (Intertrigo in abdominal folds and right leg stump) Labs LABS BLOOD CULTURE LC Final Final GROWTH OF GRAM POSITIVE COCCI on 05/28/20 at 0700 FINAL ID= [STAPHYLOCOCCUS HOMINIS MRS] STAPHYLOCOCCUS HOMINIS MRS ANTIMICROBIAL SUSCEPTIBILITY Final Comment POS RICARDO TYPE 38 STAPHYLOCOCCUS HOMINIS MRS ANTIBIOTIC RESULT INTERPRETATION AZITHROMYCIN <=2 S CLINDAMYCIN 0.5 S CIPROFLOXACIN >2 R DAPTOMYCIN <=0.5 S ERYTHROMYCIN <=0.25 S GENTAMICIN <=4 S LINEZOLID <=1 S LEVOFLOXACIN >4 R OXACILLIN >2 R PENICILLIN >2 R RIFAMPIN <=1 S TRIMETHOPRIM/SULFAMETHOXAZOLE >2/38 R TETRACYCLINE >8 R VANCOMYCIN 0.5 S Unless otherwise specified, Testing Performed by: [address] [id number] For Inquires, the Physician may contact the Microbiology department at [phone] SPEC #: [id number] BLUE: 05/26/20 STATUS: COMP REQ #: [id number] RECD: 05/26/[address]: JERROD SWENSON MD SOURCE: BLOOD ENTR: 05/27/20 [facility] DR: Yao HEATON MD [facility]: ORDERED: BLD CULT - LC Procedure Result -- BLOOD CULTURE LC Final Final GROWTH OF GRAM POSITIVE COCCI on 05/28/20 at 0700 FINAL ID= [STAPHYLOCOCCUS HOMINIS MRS] STAPHYLOCOCCUS HOMINIS MRS ANTIMICROBIAL SUSCEPTIBILITY Final Comment POS RICARDO TYPE 38 STAPHYLOCOCCUS HOMINIS MRS ANTIBIOTIC RESULT INTERPRETATION AZITHROMYCIN <=2 S CLINDAMYCIN 0.5 S CIPROFLOXACIN >2 R DAPTOMYCIN <=0.5 S ERYTHROMYCIN <=0.25 S GENTAMICIN <=4 S LINEZOLID <=1 S LEVOFLOXACIN >4 R OXACILLIN >2 R PENICILLIN >2 R RIFAMPIN <=1 S TRIMETHOPRIM/SULFAMETHOXAZOLE >38 R TETRACYCLINE >8 R VANCOMYCIN 0.5 S Unless otherwise specified, Testing Performed by: [address] [id number] For Inquires, the Physician may contact the Microbiology department at [phone] Procedure Result BLOOD CULTURE Final GRAM POSITIVE COCCI IN CLUSTERS, SUGGESTIVE OF STAPH, IN 1 OF 2 BOTTLES, ONE SET DRAWN. CALLED TO JUANCHO WELCH RN ON 6S AT 8:00 ON 05/27/20 DW MT SENT TO [facility] FOR FURTHER WORKUP. SPEC #: [id number] BLUE: 05/26/20 STATUS: COMP REQ #: [id number] RECD: 05/26/[address]: JERROD SWENSON MD SOURCE: BLOOD ENTR: 05/26/20 [facility] DR: Yao HEATON MD [facility]: ORDERED: BCULT Procedure Result BLOOD CULTURE Final GRAM POSITIVE COCCI IN CLUSTERS, SUGGESTIVE OF STAPH, IN 1 OF 2 BOTTLES, ONE SET DRAWN. CALLED TO JUANCHO WELCH RN ON 6S AT 8:00 ON 05/27/20 DW MT SENT TO [facility] FOR FURTHER WORKUP. Laboratory Tests Test 05/28/20 11:31 05/28/20 16:10 05/28/20 20:31 05/29/20 07:15 Glucose (Fingerstick) 104 mg/dL (70-99) 105 mg/dL (70-99) 101 mg/dL (70-99) 96 mg/dL (70-99) Assessment and Plan Assessmemt and Plan Problems Medical Problems: (1) Fever Status: Acute Comment Review of Relevant I have reviewed the following items marcio (where applicable) has been applied. Labs Laboratory Tests Test 05/27/20 13:55 05/27/20 16:36 05/27/20 20:00 05/28/20 08:02 Sodium Level 141 mmol/L (136-145) Potassium Level 4.1 mmol/L (3.5-5.1) Chloride Level 108 mmol/L (98-107) Carbon Dioxide Level 26 mmol/L (21-32) Anion Gap 7 (6-14) Blood Urea Nitrogen 15 mg/dL (7-20) Creatinine 0.9 mg/dL (0.6-1.0) Estimated GFR (Cockcroft-Gault) 61.9 BUN/Creatinine Ratio 17 (6-20) Glucose Level 116 mg/dL (70-99) Calcium Level 7.7 mg/dL (8.5-10.1) Total Bilirubin 0.3 mg/dL (0.2-1.0) Aspartate Amino Transf (AST/SGOT) 34 U/L (15-37) Alanine Aminotransferase (ALT/SGPT) 20 U/L (14-59) Alkaline Phosphatase 71 U/L (46-116) Total Protein 6.1 g/dL (6.4-8.2) Albumin 2.3 g/dL (3.4-5.0) Albumin/Globulin Ratio 0.6 (1.0-1.7) Glucose (Fingerstick) 106 mg/dL (70-99) 111 mg/dL (70-99) 99 mg/dL (70-99) Test 05/28/20 11:31 05/28/20 16:10 05/28/20 20:31 05/29/20 07:15 Glucose (Fingerstick) 104 mg/dL (70-99) 105 mg/dL (70-99) 101 mg/dL (70-99) 96 mg/dL (70-99) Laboratory Tests Test 05/28/20 11:31 05/28/20 16:10 05/28/20 20:31 05/29/20 07:15 Glucose (Fingerstick) 104 mg/dL (70-99) 105 mg/dL (70-99) 101 mg/dL (70-99) 96 mg/dL (70-99) Microbiology 05/26/20 Urine Culture - Final, Complete 05/26/20 Blood Culture - Final, Complete 05/26/20 Antimicrobic Susceptibility - Final, Complete Medications Current Medications Ceftriaxone Sodium (Rocephin) 1 gm 1X ONCE IVP Last administered on 05/26/20at 01:42; Start 05/26/20 at 00:45; Stop 05/26/20 at 00:46; Status DC Iohexol (Omnipaque 240 Mg/ml) 30 ml 1X ONCE PO Last administered on 05/26/20at 01:50; Start 05/26/20 at 02:00; Stop 05/26/20 at 02:01; Status DC Iohexol (Omnipaque 300 Mg/ml) 75 ml 1X ONCE IV Last administered on 05/26/20at 03:25; Start 05/26/20 at 02:00; Stop 05/26/20 at 02:01; Status DC Info (CONTRAST GIVEN -- Rx MONITORING) 1 each PRN DAILY PRN MC SEE COMMENTS; Start 05/26/20 at 02:00; Stop 05/28/20 at 01:59; Status DC Sodium Chloride 1,000 ml @ 75 mls/hr [id number] IV Last administered on 05/26/20at 20:35; Start 05/26/20 at 05:30; Stop 05/27/20 at 05:29; Status DC Ondansetron HCl (Zofran) 4 mg PRN Q4HRS PRN IV NAUSEA/VOMITING Last administered on 05/28/20at 20:29; Start 05/26/20 at 07:30 Acetaminophen (Tylenol) 650 mg PRN Q4HRS PRN PO TEMP OVER 100.4F Last administered on 05/26/20at 17:24; Start 05/26/20 at 07:30 Docusate Sodium (Colace) 100 mg PRN BID PRN PO HARD STOOLS; Start 05/26/20 at 07:30 Enoxaparin Sodium (Lovenox 40mg Syringe) 40 mg DAILY SQ Last administered on 05/29/20at 07:56; Start 05/26/20 at 09:00 Ceftriaxone Sodium (Rocephin) 1 gm Q24H IVP Last administered on 05/28/20at 20:31; Start 05/26/20 at 21:00 Insulin Human Lispro (HumaLOG) 0-7 UNITS TIDWMEALS SQ ; Start 05/26/20 at 08:00 Dextrose (Dextrose 50%-Water Syringe) 12.5 gm PRN Q15MIN PRN IV SEE COMMENTS; Start 05/26/20 at 07:45 Citalopram Hydrobromide (CeleXA) 20 mg DAILY PO Last administered on 05/29/20at 07:58; Start 05/27/20 at 09:00 Lisinopril (Prinivil) 20 mg DAILY PO Last administered on 05/29/20at 07:57; Start 05/27/20 at 09:00 Nystatin (Nystop) 1 kia BID TP Last administered on 05/29/20at 07:58; Start 05/26/20 at 21:00 Tamsulosin HCl (Flomax) 0.4 mg HS PO Last administered on 05/28/20at 20:30; Start 05/26/20 at 21:00 Trazodone HCl (Desyrel) 50 mg QHS PO Last administered on 05/28/20at 20:30; Start 05/26/20 at 21:00 Ondansetron HCl (Zofran Odt) 4 mg PRN Q4HRS PRN PO NAUSEA/VOMITING; Start 05/26/20 at 14:45 Psyllium Hydrophilic Mucilloid (Metamucil Fiber Packet) 1 pkt QHS PO Last admin istered on 05/27/20at 22:11; Start 05/26/20 at 21:00 Olanzapine (ZyPREXA ZYDIS) 5 mg PRN BID PRN PO ANXIETY / AGITATION; Start at 14:30 Lactobacillus Rhamnosus (Culturelle) 1 cap BID PO Last administered on 05/29/20at 07:57; Start 05/27/20 at 21:00 Metoclopramide HCl (Reglan Vial) 10 mg 1X ONCE IVP Last administered on 05/27/20at 13:46; Start 05/27/20 at 13:45; Stop 05/27/20 at 13:46; Status DC Active Scripts Active Combivent Respimat Inhal (Ipratropium/Albuterol Sulfate) 4 Gm Aer.w.adap 2 Inh IH QID 30 Days Reported Trazodone Hcl 50 Mg Tablet 1 Tab PO QHS Celexa (Citalopram Hydrobromide) 20 Mg Tablet 1 Tab PO DAILY Zofran (Ondansetron Hcl) 4 Mg Tablet 1 Tab PO PRN Q4HRS PRN Lisinopril 20 Mg Tablet 1 Tab PO DAILY Nystatin 15 Gm Powder 1 Kia TP BID Vesicare (Solifenacin Succinate) 10 Mg Tablet 1 Tab PO DAILY Flomax (Tamsulosin Hcl) 0.4 Mg Cap.er.24h 1 Cap PO HS Vitals/I & O Vital Sign - Last 24 Hours 05/28/20 05/28/20 05/28/20 05/28/20 15:00 20:05 21:28 23:00 Temp 100.0 98.9 99.1 100.0 98.9 99.1 Pulse 81 74 73 Resp 20 20 18 B/P (MAP) 168/76 (106) 163/77 (105) 141/75 (97) Pulse Ox 98 97 96 O2 Delivery Nasal Cannula Nasal Cannula Nasal Cannula Nasal Cannula O2 Flow Rate 2.0 2.0 2.0 2.0 05/29/20 05/29/20 05/29/20 05/29/20 03:21 07:14 07:57 08:00 Temp 98.5 98.8 98.5 98.8 Pulse 81 68 81 Resp 18 18 B/P (MAP) 142/67 (92) 147/75 (99) 142/67 Pulse Ox 98 96 O2 Delivery Nasal Cannula Nasal Cannula Nasal Cannula O2 Flow Rate 2.0 2.0 2.0 Intake and Output 05/28/20 05/28/20 05/29/20 15:00 23:00 07:00 Intake Total 1000 ml 200 ml Balance 1000 ml 200 ml Justicifation of Admission Dx: Justifications for Admission: Justification of Admission Dx: N/A ABHISHEK DANIELSON MD May 29, 2020 11:27
[2020-05-29 15:19] VITALS: BP 165/76
--- NOTE | 2020-05-29 17:01 | NUR ---
SW following for discharge planning. SW spoke with RN and reviewed chart. Pt remains on 02. Pt does not have home 02. Pt resides with her daughter Viky ([phone]) and granddaughter. Discharge plan remains home with family and resumption of care through [facility]. SW confirmed discharge plan with daughter today. Possible 6 min walk needed prior to discharge to determine if home 02 needed.
[2020-05-29 19:00] VITALS: BP 165/77
[2020-05-29] MEDS ORDERED: ELUX75TA PO (19:41)
[2020-05-29] MEDS: ACETAMINOPHEN 325 MG TABLET. PO PRN (19:56)
[2020-05-29] MEDS: traZODone 50 MG TABLET. PO SCH (19:57)
[2020-05-29] MEDS: cefTRIAXone IV Push 1 GM VIAL. IVP SCH (19:57)
[2020-05-29] MEDS: TAMSULOSIN 0.4 MG CAP.ER.24H. PO SCH (19:57)
[2020-05-29] MEDS: PSYLLIUM HUSK (SUGAR FREE) 1 PKT PACKET PO SCH (19:57)
[2020-05-29 23:00] VITALS: BP 174/73
[2020-05-30 02:57] VITALS: BP 182/82
[2020-05-30 07:00] VITALS: BP 189/91
[2020-05-30] MEDS: INSULIN LISPRO 300 UNITS/3 ML VIAL. SQ SCH ×2 (08:00→12:00)
[2020-05-30] MEDS: CITALOPRAM 20 MG TABLET. PO SCH (08:50)
[2020-05-30] MEDS: LACTOBACILLUS RHAMNOSUS GG 1 CAPSULE. PO SCH (08:50)
[2020-05-30] MEDS: ENOXAPARIN 40 MG/0.4 ML SYRINGE. SQ SCH (08:50)
[2020-05-30] MEDS: LISINOPRIL 20 MG TABLET PO SCH (08:51)
[2020-05-30] MEDS: NYSTATIN TOPICAL POWDER 15GM BOTTLE. TP SCH (08:54)
[2020-05-30 11:00] VITALS: BP 158/74
--- NOTE | 2020-05-30 11:03 | PDOC ---
Infectious Disease Note Vital Signs: Vital Signs Vital Signs Date Time Temp Pulse Resp B/P (MAP) Pulse Ox O2 Delivery O2 Flow Rate FiO2 05/30/20 08:51 63 189/91 05/30/20 08:00 Room Air 05/30/20 07:00 96.9 17 100 2.0 96.9 Medications: Inpatient Meds: Current Medications Medications (Trade) Dose Ordered Sig/Haim Start Time Stop Time Status Last Admin Dose Admin Acetaminophen (Tylenol) 650 mg PRN Q4HRS PRN 05/26/20 07:30 05/29/20 19:56 650 MG Ceftriaxone Sodium (Rocephin) 1 gm Q24H 05/26/20 21:00 05/29/20 19:57 1 GM Citalopram Hydrobromide (CeleXA) 20 mg DAILY 05/27/20 09:00 05/30/20 08:50 20 MG Dextrose (Dextrose 50%-Water Syringe) 12.5 gm PRN Q15MIN PRN 05/26/20 07:45 Docusate Sodium (Colace) 100 mg PRN BID PRN 05/26/20 07:30 Enoxaparin Sodium (Lovenox 40mg Syringe) 40 mg DAILY 05/26/20 09:00 05/30/20 08:50 40 MG Info (CONTRAST GIVEN -- Rx MONITORING) 1 each PRN DAILY PRN 05/26/20 02:00 05/28/20 01:59 DC Insulin Human Lispro (HumaLOG) 0-7 UNITS TIDWMEALS 05/26/20 08:00 Iohexol (Omnipaque 240 Mg/ml) 30 ml 1X ONCE 05/26/20 02:00 05/26/20 02:01 DC 05/26/20 01:50 30 ML Iohexol (Omnipaque 300 Mg/ml) 75 ml 1X ONCE 05/26/20 02:00 05/26/20 02:01 DC 05/26/20 03:25 75 ML Lactobacillus Rhamnosus (Culturelle) 1 cap BID 05/27/20 21:00 05/30/20 08:50 1 CAP Lisinopril (Prinivil) 20 mg DAILY 05/27/20 09:00 05/30/20 08:51 20 MG Metoclopramide HCl (Reglan Vial) 10 mg 1X ONCE 05/27/20 13:45 05/27/20 13:46 DC 05/27/20 13:46 10 MG Nystatin (Nystop) 1 paloma BID 05/26/20 21:00 05/30/20 08:54 1 PALOMA Olanzapine (ZyPREXA ZYDIS) 5 mg PRN BID PRN 05/26/20 14:30 Ondansetron HCl (Zofran Odt) 4 mg PRN Q4HRS PRN 05/26/20 14:45 Ondansetron HCl (Zofran) 4 mg PRN Q4HRS PRN 05/26/20 07:30 05/28/20 20:29 4 MG Psyllium Hydrophilic Mucilloid (Metamucil Fiber Packet) 1 pkt QHS 05/26/20 21:00 05/29/20 19:57 1 PKT Sodium Chloride 1,000 ml @ 75 mls/hr [id number] 05/26/20 05:30 05/27/20 05:29 DC 05/26/20 20:35 75 MLS/HR Tamsulosin HCl (Flomax) 0.4 mg HS 05/26/20 21:00 05/29/20 19:57 0.4 MG Trazodone HCl (Desyrel) 50 mg QHS 05/26/20 21:00 05/29/20 19:57 50 MG Labs: Lab Laboratory Tests Test 05/29/20 11:35 05/29/20 16:29 05/29/20 18:20 05/29/20 19:01 Glucose (Fingerstick) 100 mg/dL (70-99) 108 mg/dL (70-99) 128 mg/dL (70-99) C-Reactive Protein, Quantitative 24.9 mg/L (0-3.3) Test 05/30/20 07:46 Glucose (Fingerstick) 87 mg/dL (70-99) Objective: Assessment: Patient seen and examined Infectious disease consultation dictated Fever UTI urine cultures multiple organisms Covid negative Nausea resolved Abnormal CT abdomen with indeterminate right renal lesion Plan: Plan of Care Continue ceftriaxone while here Patient can be discharged from ID standpoint on p.o. cefpodoxime 300 mg p.o. twice daily for 7 days Probiotics or yogurt Discussed with RN Thank you for this consult [id number] USAMA MARTIN MD May 30, 2020 11:03
--- NOTE | 2020-05-30 11:43 | CONS ---
DATE OF CONSULTATION: 05/30/2020 REFERRING PHYSICIAN: Dr. Mcfadden. REASON FOR CONSULTATION: Bacteremia. HISTORY OF PRESENT ILLNESS: A 70-year-old female, hard of hearing. History obtained from staff and medical staff, presented to the ER with complaints of fever on 05/26/2020. History is limited due to the patient's severe hearing loss. The patient had some nausea, some abdominal discomfort. She also has history of urinary retention. She denied any vomiting, no diarrhea or constipation. Her white count was 5.9, platelets of 159, creatinine of 1.0. UA showed leukocyte esterase and nitrite. Urine culture showed multiple contaminants. Blood culture was positive for GPC. ID consultation has been requested for antibiotic management. Today, the patient denies any fevers, chills, nausea, vomiting, diarrhea, abdominal pain. PAST MEDICAL HISTORY: Sigmoid diverticulitis, history of recurrent Clostridium difficile, hypertension, GERD, chronic anemia, osteoarthritis, urinary incontinence, history of urinary tract infection, most recently Proteus also E. coli, history of ventral hernia. PAST SURGICAL HISTORY: Sigmoidectomy, ventral hernia repair with mesh, appendectomy, cholecystectomy, tonsillectomy. REVIEW OF SYSTEMS: Negative except for above in HPI. ALLERGIES: No known drug allergies. SOCIAL HISTORY: Nonsmoker, no alcohol, no drugs. FAMILY HISTORY: As per HPI. CURRENT MEDICATIONS: Ceftriaxone. Other medications reviewed in medication list. ALLERGIES: CODEINE, MEPERIDINE. PHYSICAL EXAMINATION: VITAL SIGNS: Temperature 96.9, pulse 63, respiratory rate 17, blood pressure 181/91, oxygen saturation 100% on room air. GENERAL: Alert, oriented x 3. Hard of hearing female, lying in bed comfortably, in no acute distress, watching TV. HEENT: Normocephalic, atraumatic, anicteric, edentulous. NECK: Supple, no JVD. LUNGS: Clear bilaterally. No wheezing. HEART: S1, S2. ABDOMEN: Soft, obese. Bowel sounds present, nontender, nondistended. GENITOURINARY: Briefs in place. No Espinosa. No CVA tenderness. EXTREMITIES: Right AKA without signs of complications, no edema. DERMATOLOGIC: Warm, dry. No generalized rash. NEUROLOGIC: Alert and oriented, smiling. LABORATORY DATA: 1. WBC 5.9, hemoglobin 12.7, hematocrit 37.7, platelets 159. 2. Sodium 141, potassium 4.0, chloride 108, bicarbonate 28, BUN 19, creatinine 1.0, glucose 149. LFTs normal. Lactate 1.1, albumin 2.7. 3. UA, large leukocyte esterase, wbc too numerous to count. COVID-19 negative. MICROBIOLOGY: Urine culture, 3 or more organisms likely contaminant. Blood culture 1 out of 2 bottles Staph hominis. IMAGIN. Chest x-ray shows some mild linear opacities in the lung base, which could be secondary to atelectasis with early infiltrate cannot be excluded. Elevated right hemidiaphragm. 2. Abdominal CT, no evidence of bowel obstruction, indeterminate right renal lesion. Severe degenerative changes in the spine. IMPRESSION: 1. Fever, resolved. 2. Urinary tract infection. Urine culture, multiple organisms. 3. Pulmonary infiltrates. 4. Indeterminate right renal lesion. 5. Severe degenerative joint disease. 6. Nausea, resolved. 7. COVID-19 negative. RECOMMENDATIONS: 1. Continue ceftriaxone while here. 2. When the patient is ready for discharge, can transition to p.o., cefpodoxime 300 mg p.o. b.i.d. for 7 days. 3. Probiotics. 4. Discussed with nursing staff. Thank you for allowing me to participate in this patient's care. If you have any questions, do not hesitate to contact me. USAMA MARTIN MD DR: MAGY/amparo JOB#: [id number] / [id number]
--- NOTE | 2020-05-30 11:47 | PDOC ---
PROGRESS NOTES Date of Service: DATE: 05/30/20 TIME: 11:45 Chief Complaint Chief Complaint DISCHARGE DX Sepsis - likely from UTI, less likely from right AKA stump. Will cont empiric antibiotics and COVID 19 NEG UTI - empiric antibiotics Right stump candidal infection - topical nystatin. Wound care to see Abnormal CXR - will r/o COVID 19, treat for COPD COPD - inhalers DM2 - sliding scale GERD - ppi HTN - cont home meds Urinary retention - cont home meds, PVR, may need straight cath prn Hard of hearing - needs hearing aid assistance Moderate protein calorie malnutrition - in home nanny to see Right renal lesion - will need outpatient f/u Multilevel central canal neural foraminal stenosis as well as scoliotic curvature - PT PLAN ADMIT FEN - ADA diet PPX - lovenox FULL CODE Dispo - inpatient 2 midnights. PT/OT IV ROCEPHIN Q 24 HRS 1 GM , THE ON D/C CEFPODOXIME 300 MG PO BID X 10 DAYS GROWTH OF GRAM POSITIVE COCCI on 05/28/20 at 0700 FINAL ID= [STAPHYLOCOCCUS HOMINIS MRS] STAPHYLOCOCCUS HOMINIS MRS CONSULT ID D/C PLANNING 32 MIN History of Present Illness History of Present Illness Ms Alexis is a 70-year-old female w/ PMHx COPD, DM2, GERD, HTN, urinary retention, s/p right AKA, Hard of hearing who presents to the emergency room complaining of fever. History is limited due to patient's severe hearing loss. According to EMS family called because she had a fever of 102.1F at home. They deny other symptoms. Patient states that she is having right upper quadrant abdominal pain that started 05/25/20. She denies any vomiting but does have some nausea. She denies diarrhea or constipation. She has not had any cough, shortness of breath, chest pain, URI symptoms, urinary symptoms. She was seen by a visiting nursing who told her she has a UTI. Labs with WBC 5.9, Hb 12.7, platelets 159, NA 141, K4.1, BUN 19, CR 1, glucose 149, albumin 2.8, UA positive for leukocyte esterase and nitrites. Febrile to 101.5 F in the ED. Chest radiograph with right hemidiaphragm elevated and linear opacities at lung bases CT abdomen pelvis with indeterminate right renal lesion and spine with multilevel central canal neural foraminal stenosis as well as scoliotic curvature. Admitted for further care. Afebrile overnight. Blood cultures 1 out of 2 bottles positive for GPC in clusters. He feels a little improved today. No new chest pain a little bit of shortness of breath. Pain in her right stump improved. Still with some abdominal pain and early satiety. No BM Vitals Vitals Vital Signs Date Time Temp Pulse Resp B/P (MAP) Pulse Ox O2 Delivery O2 Flow Rate FiO2 05/30/20 08:51 63 189/91 05/30/20 08:00 Room Air 05/30/20 07:00 96.9 17 100 2.0 96.9 Physical Exam General: Alert, Oriented X3, Cooperative, No acute distress Heart: Regular rate Lungs: Clear, Wheezing Abdomen: Normal bowel sounds, Soft, No hepatosplenomegaly, No masses, Other (Suprapubic and right flank tenderness) Extremities: No clubbing, No cyanosis, No edema, Normal pulses, Other (S/p right BKA with redness and swelling) Skin: Other (Intertrigo in abdominal folds and right leg stump) Labs LABS Laboratory Tests Test 05/29/20 16:29 05/29/20 18:20 05/29/20 19:01 05/30/20 07:46 Glucose (Fingerstick) 108 mg/dL (70-99) 128 mg/dL (70-99) 87 mg/dL (70-99) C-Reactive Protein, Quantitative 24.9 mg/L (0-3.3) Assessment and Plan Assessmemt and Plan Problems Medical Problems: (1) Fever Status: Acute Comment Review of Relevant I have reviewed the following items marcio (where applicable) has been applied. Labs Laboratory Tests Test 05/28/20 16:10 05/28/20 20:31 05/29/20 07:15 05/29/20 11:35 Glucose (Fingerstick) 105 mg/dL (70-99) 101 mg/dL (70-99) 96 mg/dL (70-99) 100 mg/dL (70-99) Test 05/29/20 16:29 05/29/20 18:20 05/29/20 19:01 05/30/20 07:46 Glucose (Fingerstick) 108 mg/dL (70-99) 128 mg/dL (70-99) 87 mg/dL (70-99) C-Reactive Protein, Quantitative 24.9 mg/L (0-3.3) Laboratory Tests Test 05/29/20 16:29 05/29/20 18:20 05/29/20 19:01 05/30/20 07:46 Glucose (Fingerstick) 108 mg/dL (70-99) 128 mg/dL (70-99) 87 mg/dL (70-99) C-Reactive Protein, Quantitative 24.9 mg/L (0-3.3) Microbiology 05/26/20 Urine Culture - Final, Complete 05/26/20 Blood Culture - Final, Complete 05/26/20 Antimicrobic Susceptibility - Final, Complete Medications Current Medications Ceftriaxone Sodium (Rocephin) 1 gm 1X ONCE IVP Last administered on 05/26/20at 01:42; Start 05/26/20 at 00:45; Stop 05/26/20 at 00:46; Status DC Iohexol (Omnipaque 240 Mg/ml) 30 ml 1X ONCE PO Last administered on 05/26/20at 01:50; Start 05/26/20 at 02:00; Stop 05/26/20 at 02:01; Status DC Iohexol (Omnipaque 300 Mg/ml) 75 ml 1X ONCE IV Last administered on 05/26/20at 03:25; Start 05/26/20 at 02:00; Stop 05/26/20 at 02:01; Status DC Info (CONTRAST GIVEN -- Rx MONITORING) 1 each PRN DAILY PRN MC SEE COMMENTS; Start 05/26/20 at 02:00; Stop 05/28/20 at 01:59; Status DC Sodium Chloride 1,000 ml @ 75 mls/hr [id number] IV Last administered on 05/26/20at 20:35; Start 05/26/20 at 05:30; Stop 05/27/20 at 05:29; Status DC Ondansetron HCl (Zofran) 4 mg PRN Q4HRS PRN IV NAUSEA/VOMITING Last administered on 05/28/20 20:29; Start 05/26/20 at 07:30 Acetaminophen (Tylenol) 650 mg PRN Q4HRS PRN PO TEMP OVER 100.4F Last administered on 05/29/20at 19:56; Start 05/26/20 at 07:30 Docusate Sodium (Colace) 100 mg PRN BID PRN PO HARD STOOLS; Start 05/26/20 at 07:30 Enoxaparin Sodium (Lovenox 40mg Syringe) 40 mg DAILY SQ Last administered on 05/30/20at 08:50; Start 05/26/20 at 09:00 Ceftriaxone Sodium (Rocephin) 1 gm Q24H IVP Last administered on 05/29/20at 19:57; Start 05/26/20 at 21:00 Insulin Human Lispro (HumaLOG) 0-7 UNITS TIDWMEALS SQ ; Start 05/26/20 at 08:00 Dextrose (Dextrose 50%-Water Syringe) 12.5 gm PRN Q15MIN PRN IV SEE COMMENTS; Start 05/26/20 at 07:45 Citalopram Hydrobromide (CeleXA) 20 mg DAILY PO Last administered on 05/30/20at 08:50; Start 05/27/20 at 09:00 Lisinopril (Prinivil) 20 mg DAILY PO Last administered on 05/30/20at 08:51; Start 05/27/20 at 09:00 Nystatin (Nystop) 1 kia BID TP Last administered on 05/30/20at 08:54; Start at 21:00 Tamsulosin HCl (Flomax) 0.4 mg HS PO Last administered on 05/29/20 19:57; Start 05/26/20 at 21:00 Trazodone HCl (Desyrel) 50 mg QHS PO Last administered on 05/29/20 19:57; Start 05/26/20 at 21:00 Ondansetron HCl (Zofran Odt) 4 mg PRN Q4HRS PRN PO NAUSEA/VOMITING; Start 05/26/20 at 14:45 Psyllium Hydrophilic Mucilloid (Metamucil Fiber Packet) 1 pkt QHS PO Last admi nistered on 05/29/20at 19:57; Start 05/26/20 at 21:00 Olanzapine (ZyPREXA ZYDIS) 5 mg PRN BID PRN PO ANXIETY / AGITATION; Start 05/26/20 at 14:30 Lactobacillus Rhamnosus (Culturelle) 1 cap BID PO Last administered on 05/30/20at 08:50; Start 05/27/20 at 21:00 Metoclopramide HCl (Reglan Vial) 10 mg 1X ONCE IVP Last administered on 05/27/20at 13:46; Start 05/27/20 at 13:45; Stop 05/27/20 at 13:46; Status DC Active Scripts Active Combivent Respimat Inhal (Ipratropium/Albuterol Sulfate) 4 Gm Aer.w.adap 2 Inh IH QID 30 Days Reported Viberzi (Eluxadoline) 75 Mg Tablet 75 Mg PO BID Trazodone Hcl 50 Mg Tablet 1 Tab PO QHS Celexa (Citalopram Hydrobromide) 20 Mg Tablet 1 Tab PO DAILY Zofran (Ondansetron Hcl) 4 Mg Tablet 1 Tab PO PRN Q4HRS PRN Lisinopril 20 Mg Tablet 1 Tab PO DAILY Nystatin 15 Gm Powder 1 Kia TP BID Vesicare (Solifenacin Succinate) 10 Mg Tablet 1 Tab PO DAILY Flomax (Tamsulosin Hcl) 0.4 Mg Cap.er.24h 1 Cap PO HS Vitals/I & O Vital Sign - Last 24 Hours 05/29/20 05/29/20 05/29/20 05/29/20 15:19 19:00 20:05 23:00 Temp 99.5 99.3 98.3 99.5 99.3 98.3 Pulse 76 88 72 Resp 18 18 18 B/P (MAP) 165/76 (105) 165/77 (106) 174/73 (106) Pulse Ox 93 94 94 O2 Delivery Nasal Cannula Nasal Cannula Room Air Room Air O2 Flow Rate 2.0 2.0 2.0 05/30/20 05/30/20 05/30/20 05/30/20 02:57 07:00 08:00 08:51 Temp 98.0 96.9 98.0 96.9 Pulse 66 55 63 Resp 17 17 B/P (MAP) 182/82 (115) 189/91 (123) 189/91 Pulse Ox 96 100 O2 Delivery Room Air Nasal Cannula Room Air O2 Flow Rate 2.0 2.0 Intake and Output 05/29/20 05/29/20 05/30/20 15:00 23:00 07:00 Intake Total 100 ml 120 ml Output Total 2 ml 1 ml Balance 98 ml 119 ml Justicifation of Admission Dx: Justifications for Admission: Justification of Admission Dx: N/A ABHISHEK DANIELSON MD May 30, 2020 11:47
[2020-05-30] MEDS ORDERED: ACET325T9 PO (11:52)
[2020-05-30] MEDS ORDERED: LACT1CAP19 PO (11:52)
[2020-05-30] MEDS ORDERED: DOCU-153 PO (11:52)
[2020-05-30] MEDS ORDERED: PSYL3.4P PO (11:52)
[2020-05-30] MEDS ORDERED: CEFP200T PO (11:52)
[2020-05-30] MEDS ORDERED: INSU100V35 SQ (11:52)
[2020-05-30] MEDS ORDERED: OLAN5TAB7 PO (11:52)
--- NOTE | 2020-05-30 11:54 | SNU/HH DC ---
DISCHARGE WITH HOME HEALTH DISCHARGE INFORMATION: Final Diagnosis: Problems Medical Problems: (1) Fever Status: Acute Condition on Discharge: Stable CODE STATUS: Code Status: Full HOME HEALTH: Face to Face: I certify this patient is under my care and that I, or a nurse practitioner or physician's prosthetics assistant working with me, had a face to face encounter that meets the physician face to face encounter requirements with this patient on []. Medical Complications: DJD, DM RN For Eval/Treatment: Yes Physical Therapy For: Evalulation/Treatment Occupational Therapy For: Evaluation/Treatment Speech Language Pathology For: Evaluation/Treatment Home Health Aide For: Self-care CENTRAL SUPPLY NURSE For: Community Resources Pt Meets Homebound Status: Fatigue w/ amb., Limited distance walking, Poor cognition POST DISCHARGE ORDERS: Activity Instructions for Disc: Resume previous activity Weight Bearing Status after Di: As tolerated DIET AFTER DISCHARGE: Regular Wound/Incision Care: Change dressing CHECKS AFTER DISCHARGE: Checks after discharge: Check blood press - daily FOLLOW-UP: PCP to follow Home Health: PCP CHRISTIE DC TO SNF LABS: CBC, CMP, repeat C. difficile PCR TREATMENT/EQUIPMENT ORDERS: Adaptive Equipment Issued: None CERTIFICATION STATEMENT: Certification Statement: Certification Statement: Based on the above finding, I certify that this patient is confined to the home and needs intermittent [facility] care, physical therapy and/or speech therapy, or continues to need occupational therapy.~ This patient is under my care, and I have initiated the establishment of the plan of care.~ This patient will be followed by myself or a community physician who will periodically review the plan of care. Home Meds Active Scripts Cefpodoxime Proxetil (CEFPODOXIME PROXETIL) 200 Mg Tablet, 1 TAB PO BID for INFECTION for 10 Days, #20 TAB Prov:ABHISHEK DANIELSON MD 05/30/20 Insulin Lispro (Admelog) 100 Unit/1 Ml Vial, 0 UNITS SQ TIDWMEALS for DIABETES for 30 Days, #2 EACH Prov:ABHISHEK DANIELSON MD 05/30/20 Lactobacillus Rhamnosus Gg (CULTURELLE) 1 Each Cap.sprink, 1 CAP PO BID for SUPPLEMENT for 30 Days, #60 CAP Prov:ABHISHEK DANIELSON MD 05/30/20 Psyllium Husk/Aspartame (METAMUCIL FIBER SINGLES PACKET) 3.4 Gm Powd.pack, 1 PKT PO QHS for PREVENT CONSTIPATION for 30 Days, #30 PKT Prov:ABHISHEK DANIELSON MD 05/30/20 Docusate Sodium (DOK) 100 Mg Capsule, 100 MG PO PRN BID PRN for HARD STOOLS for 30 Days, #60 CAP Prov:ABHISHEK DANIELSON MD 05/30/20 Olanzapine (OLANZAPINE ODT) 5 Mg Tab.rapdis, 5 MG PO PRN BID PRN for ANXIETY / AGITATION for 14 Days, #30 TAB Prov:ABHISHEK DANIELSON MD 05/30/20 Acetaminophen (TYLENOL) 325 Mg Tablet, 650 MG PO PRN Q4HRS PRN for TEMP OVER 100.4F for 30 Days, #60 TAB Prov:ABHISHEK DANIELSON MD 05/30/20 Ipratropium/Albuterol Sulfate (COMBIVENT RESPIMAT INHAL) 4 Gm Aer.w.adap, 2 INH IH QID for breathing for 30 Days, #1 INHALER Prov:Yao HEATON MD 05/04/18 Reported Medications Eluxadoline (Viberzi) 75 Mg Tablet, 75 MG PO BID for stomach pain, TAB 05/29/20 Trazodone Hcl (TRAZODONE HCL) 50 Mg Tablet, 1 TAB PO QHS for insomnia, #30 TAB 1 Refill 05/26/20 Citalopram Hydrobromide (CELEXA) 20 Mg Tablet, 1 TAB PO DAILY for depression, #90 TAB 3 Refills 05/26/20 Ondansetron Hcl (ZOFRAN) 4 Mg Tablet, 1 TAB PO PRN Q4HRS PRN for NAUSEA, #20 TAB 05/26/20 Lisinopril (LISINOPRIL) 20 Mg Tablet, 1 TAB PO DAILY for HTN, #30 TAB 5 Refills 05/26/20 Nystatin (NYSTATIN) 15 Gm Powder, 1 PAULETTE TP BID for yeast infection/skin folds, #1 BOTTLE 04/27/18 Solifenacin Succinate (VESICARE) 10 Mg Tablet, 1 TAB PO DAILY for bladder problem, #30 TAB 5 Refills 04/27/18 Tamsulosin Hcl (FLOMAX) 0.4 Mg Cap.er.24h, 1 CAP PO HS for bladder problem, #30 CAP 11 Refills 04/27/18 ABHISHEK DANIELSON MD May 30, 2020 11:54
[2020-05-30 15:00] VITALS: BP 164/77
--- NOTE | 2020-05-30 15:57 | NUR ---
Pt dc'd home with EMS transport for sttretcher need. I spoke with daughter on phone who is ready for her. Pt alert. IV dc'd with tip intact. Nightgown on pt otherwise no belongings. Pt O2 sats were above 95 all day on room air.
--- NOTE | 2020-05-30 17:05 | NUR ---
SW following for discharge planning. SW spoke with RN and reviewed chart. Spoke with RT. Pt on room air. No home 02 needed on discharge. Pt discharged home self-care today, 05/30. SW arranged for stretcher transport at 1500. RN notified. RN to contact family. PCS form completed and faxed (copy on chart). Pt to resume [facility] through [facility]. No further SW needs at this time.
[2020-09-17] MEDS ORDERED: AMLO-186 PO (11:55)
== END 2020-05-30 15:35 | disposition home health service (06) | DRG 871 ==
LOC: ER 00:25 → 6 SOUTH 05:52
PROVIDERS: ADMIT Internal Medicine; ATTEND Internal Medicine
DX: A41.9 Sepsis, unspecified organism (principal); J96.01 Acute respiratory failure with hypoxia; N39.0 Urinary tract infection, site not specified; E44.0 Moderate protein-calorie malnutrition; E11.9 Type 2 diabetes mellitus without complications; J44.9 Chronic obstructive pulmonary disease, unspecified; Z20.822 Contact with and (suspected) exposure to COVID-19; K21.9 Gastro-esophageal reflux disease without esophagitis; H91.90 Unspecified hearing loss, unspecified ear; N28.9 Disorder of kidney and ureter, unspecified; M48.00 Spinal stenosis, site unspecified; M41.9 Scoliosis, unspecified; Z89.611 Acquired absence of right leg above knee; Z90.49 Acquired absence of other specified parts of digestive tract; Z83.3 Family history of diabetes mellitus; Z82.5 Family history of asthma and other chronic lower respiratory diseases; M19.90 Unspecified osteoarthritis, unspecified site; Z87.440 Personal history of urinary (tract) infections; I10 Essential (primary) hypertension; K80.20 Calculus of gallbladder without cholecystitis without obstruction; B37.9 Candidiasis, unspecified; Z68.34 Body mass index [BMI] 34.0-34.9, adult; Z88.5 Allergy status to narcotic agent; Z88.8 Allergy status to other drugs, medicaments and biological substances; R33.9 Retention of urine, unspecified
CPT/HCPCS: 36415; 71045; 74177; 80053; 81001; 82962; 83036; 83605; 85007; 85025; 86140; 87040; 87086; 87205; 96374; 99285; J0696; J1650; J1815; J2405; J2765; J7030; Q9966; Q9967; U0003; 97530-GP; G0378

== ENCOUNTER 2020-06-12 18:03 | Inpatient (IN) | payer OTHER ==
[~2020-06-12] VITALS: Ht 162.6 cm; Wt 87.0 kg
[~2020-06-12 18:03] MED LIST changes: +ACET325T9 PO; +ACYC800T PO; -ACYC800T88 PO; +CEFP200T PO; +CITA20TA9 PO; +DOCU-153 PO; +ELUX75TA PO; +INSU100V35 SQ; +OLAN5TAB7 PO; +ONDA4TAB7 PO; +PSYL3.4P PO; +TRAZ-118 PO
--- NOTE | 2020-06-12 18:51 | PHYS DOC ---
Past Medical History Past Medical History: COPD, Diabetes-Type II, GERD, Hypertension, MRSA, Other Additional Past Medical Histor: "bladder problems", HYPERKALEMIA, [place],CDIFF, Past Surgical History: Appendectomy, Cholecystectomy, Colectomy, Tonsillectomy, Other Additional Past Surgical Histo: R AKA, hernia Smoking Status: Never Smoker Alcohol Use: None Drug Use: None Adult General HPI HPI Patient is a 70 year old female with a past medical history which include dementia, hypertension as well as recent diagnosis of C. difficile colitis now presenting to emergency department for worsening abdominal pain, nausea vomiting and fever. Patient was at care home and they stated that she has been complaining of worsening midepigastric abdominal pain over the last 24 hours. Patient has had 2 episodes of nonbloody nonbilious vomiting has been having mild intermittent diarrhea for the last 2 and half weeks. Patient denies any chest pain, dizziness, lightheadedness, lower extremity weakness or numbness Review of Systems Review of Systems Constitutional: Denies fever or chills [] Eyes: Denies change in visual acuity, redness, or eye pain [] HENT: Denies nasal congestion or sore throat [] Respiratory: Denies cough or shortness of breath [] Cardiovascular: No additional information not addressed in HPI [] GI: Denies abdominal pain, nausea, vomiting, bloody stools or diarrhea [] : Denies dysuria or hematuria [] Musculoskeletal: Denies back pain or joint pain [] Integument: Denies rash or skin lesions [] Neurologic: Denies headache, focal weakness or sensory changes [] Endocrine: Denies polyuria or polydipsia [] All other systems were reviewed and found to be within normal limits, except as documented in this note. Current Medications Current Medications Current Medications Medications (Trade) Dose Ordered Sig/Haim Start Time Stop Time Status Last Admin Dose Admin Ciprofloxacin/ Dextrose 200 ml @ 200 mls/hr 1X ONCE 06/13/20 00:00 06/13/20 00:03 DC Metronidazole 100 ml @ 100 mls/hr 1X ONCE 06/13/20 00:00 06/13/20 00:59 Morphine Sulfate (Morphine Sulfate) 4 mg PRN Q2HR PRN 06/13/20 00:15 06/14/20 00:14 UNV Ondansetron HCl (Zofran Odt) 4 mg 1X ONCE 06/12/20 20:30 06/12/20 20:31 UNV Ondansetron HCl (Zofran) 4 mg PRN Q8HRS PRN 06/13/20 00:15 06/14/20 00:14 UNV Piperacillin Sod/ Tazobactam Sod 4.5 gm/Sodium Chloride 100 ml @ 200 mls/hr 1X ONCE 06/12/20 19:00 06/12/20 19:29 DC 06/12/20 19:02 200 MLS/HR Vancomycin HCl (Vanco Per Pharmacy) 1 each PRN DAILY PRN 06/12/20 18:30 UNV Vancomycin HCl 2 gm/Sodium Chloride 500 ml @ 250 mls/hr 1X ONCE 06/12/20 20:00 06/12/20 21:59 DC 06/12/20 20:24 250 MLS/HR Allergies Allergies Allergies Coded Allergies Type Severity Reaction Last Updated Verified codeine Allergy Intermediate TOLERATES MORPHINE 02/06/20 Yes meperidine Adverse Reaction Intermediate Nausea and Vomiting 02/06/20 Yes Physical Exam Physical Exam Constitutional: Well developed, well nourished, no acute distress, non-toxic appearance. [] HENT: Normocephalic, atraumatic, bilateral external ears normal, oropharynx moist, no oral exudates, nose normal. [] Eyes: PERRLA, EOMI, conjunctiva normal, no discharge. [] Neck: Normal range of motion, no tenderness, supple, no stridor. [] Cardiovascular:Heart rate regular rhythm, no murmur [] Lungs & Thorax: Bilateral breath sounds clear to auscultation [] Abdomen: Bowel sounds normal, soft, moderate midepigastric tenderness and g uarding, no masses, no pulsatile masses. [] Skin: Warm, dry, no erythema, no rash. [] Back: No tenderness, no CVA tenderness. [] Extremities: No tenderness, no cyanosis, no clubbing, ROM intact, no edema. [] Neurologic: Alert and oriented X 3, normal motor function, normal sensory function, no focal deficits noted. [] Psychologic: Affect normal, judgement normal, mood normal. [] Current Patient Data Vital Signs Vital Signs Date Time Temp Pulse Resp B/P (MAP) Pulse Ox O2 Delivery O2 Flow Rate FiO2 06/12/20 21:10 100.1 100.1 06/12/20 18:10 97 18 134/66 (88) 89 Room Air Lab Values Laboratory Tests Test 06/12/20 18:15 06/12/20 18:25 06/12/20 19:55 Urine Collection Type U cath Urine Color [place] Urine Clarity Turbid Urine pH 5.5 (<5.0-8.0) Urine Specific [place] 1.020 (1.000-1.030) Urine Protein 30 mg/dL (NEG-TRACE) Urine Glucose (UA) Negative mg/dL (NEG) Urine Ketones (Stick) Negative mg/dL (NEG) Urine Blood Moderate (NEG) Urine Nitrite Positive (NEG) Urine Bilirubin Negative (NEG) Urine Urobilinogen Dipstick 0.2 mg/dL (0.2 mg/dL) Urine Leukocyte Esterase Large (NEG) Urine RBC Rare /HPF (0-2) Urine WBC Tntc /HPF (0-4) Urine Squamous Epithelial Cells Few /LPF Urine Bacteria Many /HPF (0-FEW) Urine Mucus Mod /LPF White Blood Count 8.0 x10^3/uL (4.0-11.0) Red Blood Count 4.50 x10^6/uL (3.50-5.40) Hemoglobin 13.9 g/dL (12.0-15.5) Hematocrit 41.5 % (36.0-47.0) Mean Corpuscular Volume 92 fL (79-100) Mean Corpuscular Hemoglobin 31 pg (25-35) Mean Corpuscular Hemoglobin Concent 34 g/dL (31-37) Red Cell Distribution Width 14.2 % (11.5-14.5) Platelet Count 202 x10^3/uL (140-400) Neutrophils (%) (Auto) 77 % (31-73) H Lymphocytes (%) (Auto) 12 % (24-48) L Monocytes (%) (Auto) 9 % (0-9) Eosinophils (%) (Auto) 2 % (0-3) Basophils (%) (Auto) 1 % (0-3) Neutrophils # (Auto) 6.2 x10^3/uL (1.8-7.7) Lymphocytes # (Auto) 0.9 x10^3/uL (1.0-4.8) L Monocytes # (Auto) 0.7 x10^3/uL (0.0-1.1) Eosinophils # (Auto) 0.2 x10^3/uL (0.0-0.7) Basophils # (Auto) 0.1 x10^3/uL (0.0-0.2) Sodium Level 140 mmol/L (136-145) Potassium Level 4.2 mmol/L (3.5-5.1) Chloride Level 103 mmol/L (98-107) Carbon Dioxide Level 30 mmol/L (21-32) Anion Gap 7 (6-14) Blood Urea Nitrogen 17 mg/dL (7-20) Creatinine 1.2 mg/dL (0.6-1.0) H Estimated GFR (Cockcroft-Gault) 44.4 Glucose Level 120 mg/dL (70-99) H Lactic Acid Level 1.1 mmol/L (0.4-2.0) Calcium Level 8.5 mg/dL (8.5-10.1) Total Bilirubin 0.6 mg/dL (0.2-1.0) Direct Bilirubin 0.1 mg/dL (0.0-0.2) Aspartate Amino Transferase (AST) 31 U/L (15-37) Alanine Aminotransferase (ALT) 16 U/L (14-59) Alkaline Phosphatase 73 U/L (46-116) Total Protein 8.0 g/dL (6.4-8.2) Albumin 3.1 g/dL (3.4-5.0) L Procalcitonin 0.10 ng/mL (0.00-0.10) Prothrombin Time 14.4 SEC (11.7-14.0) H Prothrombin Time INR 1.2 (0.8-1.1) H Activated Partial Thromboplast Time 31 SEC (24-38) Laboratory Tests 06/12/20 18:25 Laboratory Tests 06/12/20 18:25 EKG EKG [] Radiology/Procedures Radiology/Procedures [] Course & Med Decision Making Course & Med Decision Making Pertinent Labs and Imaging studies reviewed. (See chart for details) 70F presenting for new onset of epigastric abdominal pain with significant tenderness and nausea vomiting which is raise concern for other worsening the patient C. difficile colitis or perforation. At this time will obtain a full sepsis work-up, start broad-spectrum antibiotics, start IV fluids and obtain a CT scan of the abdomen with IV contrast. Labs without significant abnormality however CT scan does demonstrate significant inflammation of the bowel concerning for worsening pseudomembranous colitis. At this time will admit the patient for IV antibiotics and further observation Dragon Disclaimer Dragon Disclaimer This electronic medical record was generated, in whole or in part, using a voice recognition dictation system. Departure Departure Impression: Primary Impression: Pseudomembranous colitis Disposition: ADMITTED INPT THIS HOSP Condition: STABLE Referrals: Yao HEATON MD (PCP) ИВАН COLLINS MD Jun 12, 2020 18:51
[2020-06-12] MEDS ORDERED: PIPERACILLIN/TAZOBACTAM 4.5 GM in IV NORMAL SALINE 100ML 100 ML IV ONE (19:00)
[2020-06-12 19:15] LABS: BILIRUBIN,URINE NEGATIVE (NEG); CLARITY,URINE TURBID; COLOR,URINE AMBER; NITRITE,URINE POSITIVE (NEG); PH,URINE 5.5 (<5.0-8.0); PROTEIN,URINE 30 mg/dL (NEG-TRACE); UROBILINOGEN,URINE 0.2 mg/dL (0.2 mg/dL)
[2020-06-12 19:23] LABS: BACTERIA,URINE MANY /HPF (0-FEW); RBC,URINE RARE /HPF (0-2); WBC,URINE TNTC /HPF (0-4)
--- NOTE | 2020-06-12 19:29 | RAD ---
XR CHEST 1V Clinical History: Reason: fever / Spl. Instructions: / History: Technique: AP view of the chest was obtained at 06/12/2020 7:19 PM. Comparison: May 26, 2020. Findings: The cardiomediastinal silhouette is normal. The pulmonary vasculature is normal. There is low lung vo lumes causing crowding of pulmonary vasculature. There is a few linear opacities in the lung bases. Impression: Minimal basal infiltrates are seen previously and could be discoid atelectasis or pneumonia. Electronically signed by: Prashant Westbrook III, MD (06/12/2020 7:27 PM) [facility]
[2020-06-12 19:30] LABS: ALBUMIN 3.1 g/dL (3.4-5.0); DIRECT BILIRUBIN 0.1 mg/dL (0.0-0.2); TOTAL BILIRUBIN 0.6 mg/dL (0.2-1.0)
[2020-06-12] MEDS ORDERED: VANCOMYCIN 2 GM in IV NORMAL SALINE 500ML BAG 500 ML IV ONE (20:00)
[2020-06-12 20:14] LABS: PROTHROMBIN TIME PATIENT 14.4 SEC (11.7-14.0)
[2020-06-12] MEDS ORDERED: ONDANSETRON PF 4 MG/2 ML VIAL. ONE (20:25)
[2020-06-12] MEDS ORDERED: ONDANSETRON ODT 4 MG TAB.RAPDIS. PO ONE (20:30)
[2020-06-12] MEDS ORDERED: ONDANSETRON PF 4 MG/2 ML VIAL. IVP ONE (20:30)
[2020-06-12 21:38] LABS: BASO # 0.1 x10^3/uL (0.0-0.2); BASO % 1 % (0-3); EOS # 0.2 x10^3/uL (0.0-0.7); EOS % 2 % (0-3); HEMATOCRIT 41.5 % (36.0-47.0); HEMOGLOBIN 13.9 g/dL (12.0-15.5); LYMPH # 0.9 x10^3/uL (1.0-4.8); LYMPH % 12 % (24-48); MEAN CORPUSCULAR HEMOGLOBIN 31 pg (25-35); MEAN CORPUSCULAR HGB CONC 34 g/dL (31-37); MEAN CORPUSCULAR VOLUME 92 fL (79-100); MONO # 0.7 x10^3/uL (0.0-1.1); MONO % 9 % (0-9); NEUT # 6.2 x10^3/uL (1.8-7.7); NEUT % 77 % (31-73); PLATELET COUNT 202 x10^3/uL (140-400); RED CELL DISTRIBUTION WIDTH 14.2 % (11.5-14.5)
[2020-06-12 21:42] LABS: CALCIUM 8.5 mg/dL (8.5-10.1); CREATININE 1.2 mg/dL (0.6-1.0); GFR 44.4; POTASSIUM 4.2 mmol/L (3.5-5.1)
--- NOTE | 2020-06-12 23:24 | RAD ---
PQRS Compliance Statement: One or more of the following individualized dose reduction techniques were utilized for this examinat ion: 1. Automated exposure control 2. Adjustment of the mA and/or kV according to patient size 3. Use of iterative reconstruction technique CT ABDOMEN+PELVIS WO Clinical Indication: Reason: abdominal pain /C. Difficile, diarrhea, fever. Comparison: CT abdomen and pelvis with contrast, May 26, 2019. Technique: Helical CT imaging of the abdomen and pelvis is performed without IV or oral contrast. Findings: Evaluation of solid organs and bowel is limited without oral and IV contrast, decreasing sensitivity for detection of pathology. There is mild atelectasis in the right lower lobe. Coronary artery disease. Cardiac size normal. Cholecystectomy. Liver, spleen, pancreas, and adrenal glands are normal. Mild atherosclerotic calcifi cation of the abdominal aorta. There is no hydronephrosis. Small bilateral parapelvic cysts do not re quire follow-up. There is ventral hernia mesh. Diastasis of rectus abdominis muscles. The stomach is unremarkable. The re is no small bowel obstruction. There is mild wall thickening of the descending and sigmoid colon. Ahaustral appearance of this segment of colon is noted. No abdominal adenopathy or free fluid. There may be slight wall thickening of the more proximal colon. The colon is fluid-filled. Atrophic uterus. Urinary bladder is normal. There is no pelvic free fluid. There is moderate right convexity lower thoracic and lumbar scoliosis. There is arthropathy of the hi ps, worse on the right. T10 butterfly vertebrae. IMPRESSION: 1. There is mild wall thickening of the descending and sigmoid colon with an ahaustral appearance. T here may also be slight wall thickening of the more proximal colon. The entire colon is fluid-filled compatible with diarrheal state. Findings suggest mild colitis, probably infectious including pseudom embranous colitis versus inflammatory bowel disease. Electronically signed by: Ray Gavin MD (06/12/2020 11:22 PM) [facility]
[2020-06-13] VITALS (7 sets, daily range): BP systolic 109–165; BP diastolic 60–83
[2020-06-13] MEDS ORDERED: PIPERACILLIN/TAZOBACTAM 4.5 GM in IV NORMAL SALINE 100ML 100 ML IV SCH
[2020-06-13] MEDS ORDERED: CIPROFLOXACIN 400MG PREMIX 200 ML IV ONE
--- NOTE | 2020-06-13 01:15 | NUR ---
The patient, ADRIANO MARSHALL, 70 y/o, F admitted by ABHISHEK DANIELSON MD, was given written information regarding hospital policies, unit procedures and contact persons. RN received report from Camilo ROMANO in the ED at 0102, patient was then transported from the ED to room 436 at 0115 via gurney. RN performed a head to toe assessment at that time, VSS, afebrile. Bed is in lowest locked position and the call light is within reach. Valuables were checked and left in the room with the patient. RN will continue to monitor the patient closely.
[2020-06-13] MEDS: VANCOMYCIN PER PHARMACY MC PRN ×4 (01:42→11:47)
--- NOTE | 2020-06-13 02:07 | NUR ---
Pharmacy Vancomycin Dosing Note S:Consulted to monitor and dose vancomycin started 06/12/20. O:ADRIANO MARSHALL is a 70 year old F with PSEUDOMEMBRANOUS COLITIS . Height: 5 feet, 4 inches Weight: 85.7 kg [place] Body Weight: 54.70 Adjusted Body Weight: 67.10 Dosing Weight: Actual Other Antibiotics: ZOSYN 3.375GM IV Q6H LABS: Last BUN: 17 Last Creatinine: 1.2 Creatinine Clearance: 46 mL/min Last WBC: 8 Last Procalcitonin: Tmax (past 24 hours): Microbiology: I/O: Drug Levels: Last level: on at Last dose given 06/12/20 at 2023 Vancomycin Dosing: Loading Dose: 2000 mg x1 06/12/202023 Dosing Weight: Actual Target Trough: 15-20 A: Based on: Actual WT and CrCl P: 1. 06/13/202029 Vancomycin 1250 mg IV q24h 2. Follow up Trough level on 06/14/20 at 1999 3. Pharmacy will continue to monitor, follow and adjust therapy as needed. VENANCIO BURGOS RPH, 06/13/20 020 Signed: 06/13/20 at 0208 by VENANCIO BURGOS RPH PHA
[2020-06-13] MEDS: PIPERACILLIN/TAZOBACTAM 3.375 GM in IV NORMAL SALINE 50ML 50 ML IV SCH ×4 (02:15→17:42)
[2020-06-13] MEDS ORDERED: IV NORMAL SALINE 1000ML BAG 1,000 ML IV ONE (04:00)
[2020-06-13] MEDS: ONDANSETRON PF 4 MG/2 ML VIAL. IV PRN ×3 (04:01→17:47)
[2020-06-13] MEDS: MORPHINE SULFATE 4 MG/ML VIAL. IV PRN ×2 (04:02→09:41)
[2020-06-13 07:21] LABS: BASO % 1 % (0-3); EOS % 0 % (0-3); HEMATOCRIT 39.4 % (36.0-47.0); HEMOGLOBIN 13.1 g/dL (12.0-15.5); LYMPH # 0.5 x10^3/uL (1.0-4.8); LYMPH % 10 % (24-48); MEAN CORPUSCULAR HEMOGLOBIN 31 pg (25-35); MEAN CORPUSCULAR HGB CONC 33 g/dL (31-37); MEAN CORPUSCULAR VOLUME 93 fL (79-100); MONO # 0.6 x10^3/uL (0.0-1.1); MONO % 13 % (0-9); NEUT # 3.7 x10^3/uL (1.8-7.7); NEUT % 76 % (31-73); PLATELET COUNT 180 x10^3/uL (140-400); RED BLOOD COUNT 4.26 x10^6/uL (3.50-5.40); RED CELL DISTRIBUTION WIDTH 14.8 % (11.5-14.5); WHITE BLOOD COUNT 4.9 x10^3/uL (4.0-11.0)
[2020-06-13] MEDS ORDERED: VANCOMYCIN 2 GM in IV NORMAL SALINE 500ML BAG 500 ML IV SCH (08:30)
--- NOTE | 2020-06-13 08:59 | NUR ---
Wound/Ostomy Care Wound Type/Assessment: Pt seen per wound care consult. See wound assessment. 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 Wounds are cleansed and assessed. Pt had large liquid stool, pt cleansed and chux changed. Treatment Recommendations/Plan: Recommendations for Aquacel Ag to right AKA and cover with foam dressing, changing every other day. Nystatin powder mixed with Calazime cream recommended for intergluteal cleft and excoriated areas. Pt should NOT be wearing a brief due to incontinence and amounts of liquid stools. Pt would benefit from a rectal tube. Education provided: Pt very hard of hearing, therefore unable to educate. 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 Offloading surface/device: Pt turned using purple wedge. Recommended Referrals/Tests: N/A Discharge Recommendations for dressings: Continue current treatment as above. Dressing change instructions left in room. No other wounds noted upon complete head to toe assessment. Bed lowered and call light in reach. Wound care will follow up with patient on 06/19/2020.
[2020-06-13] MEDS ORDERED: C.DIFF MED SCREEN BY RX. MC ONE (09:00)
[2020-06-13] MEDS ORDERED: VANCOMYCIN 125 MG/2.5 ML ORAL SOLUTION. PO SCH (09:00)
--- NOTE | 2020-06-13 09:28 | PDOC2 ---
GI CONSULT Date of Service: DATE: 06/13/20 TIME: 09:28 Reason For Consult: pseudomembranous colitis, C Diff HPI: HPI: 70 y/o female who we have seen many times. H/o recurrent diverticulitis s/p sigmoid resection and recurrent C Diff. Limited history - she is very hard of hearing. ER note indicates sent from [place] w/ abd pain, vomiting, and intermittent diarrhea. Previous GI workup: C Diff positive: 07/2016, 11/2016, 07/2019, 01/2020 Colonoscopy 07/2016 (to splenic flexure) by Dr. Cnonell: internal hemorrhoids, active diverticulitis in sigmoid colon w/ purulent drainage, poor prep. Barium enema 02/2011: sigmoid diverticulosis, moderately redundant colon. Colonoscopy 01/2011 (to hepatic flexure): sigmoid diverticulosis, non-bleeding internal hemorrhoids. Colonoscopy 2008 (to cecum) by Dr. Ruiz: adenomatous polyp in transverse colon, diverticulosis. Additionally had colonoscopies in 2004 (Dr. Christian) and 2000 (Dr. Neal). Treated by PCP in 2016 for + H. pylori lab test. EGD 01/[address] Connell: normal esophagus, gastritis, duodenal diverticulum. EGD [address] Ruiz: neg esophageal biopsies. EGD [address] Christian: antral biopsies neg for pathology. EGD [address] Neal: +H. pylori, was treated. S/p cholecystectomy. No liver or pancreas history. No NSAIDs. PMH: PMH: OA, GERD, diverticulitis, C Diff, HTN, CAD, UTI ventral hernia repair w/ mesh, right AKA (after knee replacement w/ subsequent MRSA infection), tonsillectomy, cholecystectomy, appendectomy, sigmoid resection FH: Family History: No pertinent hx Social History: Smoke: No ALCOHOL: none Drugs: None ROS: Very [place] - difficult to obtain. Vitals: Vitals: Vital Signs Date Time Temp Pulse Resp B/P (MAP) Pulse Ox O2 Delivery O2 Flow Rate FiO2 06/13/20 07:15 99.7 85 18 151/67 (95) 96 Room Air 2.0 99.7 Labs: Labs: Laboratory Tests Test 06/12/20 18:15 06/12/20 18:25 06/12/20 19:55 06/13/20 00:52 Urine Collection Type U cath Urine Color [place] Urine Clarity Turbid Urine pH 5.5 (<5.0-8.0) Urine Specific [place] 1.020 (1.000-1.030) Urine Protein 30 mg/dL (NEG-TRACE) Urine Glucose (UA) Negative mg/dL (NEG) Urine Ketones (Stick) Negative mg/dL (NEG) Urine Blood Moderate (NEG) Urine Nitrite Positive (NEG) Urine Bilirubin Negative (NEG) Urine Urobilinogen Dipstick 0.2 mg/dL (0.2 mg/dL) Urine Leukocyte Esterase Large (NEG) Urine RBC Rare /HPF (0-2) Urine WBC Tntc /HPF (0-4) Urine Squamous Epithelial Cells Few /LPF Urine Bacteria Many /HPF (0-FEW) Urine Mucus Mod /LPF White Blood Count 8.0 x10^3/uL (4.0-11.0) Red Blood Count 4.50 x10^6/uL (3.50-5.40) Hemoglobin 13.9 g/dL (12.0-15.5) Hematocrit 41.5 % (36.0-47.0) Mean Corpuscular Volume 92 fL (79-100) Mean Corpuscular Hemoglobin 31 pg (25-35) Mean Corpuscular Hemoglobin Concent 34 g/dL (31-37) Red Cell Distribution Width 14.2 % (11.5-14.5) Platelet Count 202 x10^3/uL (140-400) Neutrophils (%) (Auto) 77 % (31-73) Lymphocytes (%) (Auto) 12 % (24-48) Monocytes (%) (Auto) 9 % (0-9) Eosinophils (%) (Auto) 2 % (0-3) Basophils (%) (Auto) 1 % (0-3) Neutrophils # (Auto) 6.2 x10^3/uL (1.8-7.7) Lymphocytes # (Auto) 0.9 x10^3/uL (1.0-4.8) Monocytes # (Auto) 0.7 x10^3/uL (0.0-1.1) Eosinophils # (Auto) 0.2 x10^3/uL (0.0-0.7) Basophils # (Auto) 0.1 x10^3/uL (0.0-0.2) Sodium Level 140 mmol/L (136-145) Potassium Level 4.2 mmol/L (3.5-5.1) Chloride Level 103 mmol/L (98-107) Carbon Dioxide Level 30 mmol/L (21-32) Anion Gap 7 (6-14) Blood Urea Nitrogen 17 mg/dL (7-20) Creatinine 1.2 mg/dL (0.6-1.0) Estimated GFR (Cockcroft-Gault) 44.4 Glucose Level 120 mg/dL (70-99) Lactic Acid Level 1.1 mmol/L (0.4-2.0) 3.2 mmol/L (0.4-2.0) Calcium Level 8.5 mg/dL (8.5-10.1) Total Bilirubin 0.6 mg/dL (0.2-1.0) Direct Bilirubin 0.1 mg/dL (0.0-0.2) Aspartate Amino Transf (AST/SGOT) 31 U/L (15-37) Alanine Aminotransferase (ALT/SGPT) 16 U/L (14-59) Alkaline Phosphatase 73 U/L (46-116) Total Protein 8.0 g/dL (6.4-8.2) Albumin 3.1 g/dL (3.4-5.0) Procalcitonin 0.10 ng/mL (0.00-0.10) Prothrombin Time 14.4 SEC (11.7-14.0) Prothromb Time International Ratio 1.2 (0.8-1.1) Activated Partial Thromboplast Time 31 SEC (24-38) Test 06/13/20 05:50 06/13/20 05:56 White Blood Count 4.9 x10^3/uL (4.0-11.0) Red Blood Count 4.26 x10^6/uL (3.50-5.40) Hemoglobin 13.1 g/dL (12.0-15.5) Hematocrit 39.4 % (36.0-47.0) Mean Corpuscular Volume 93 fL (79-100) Mean Corpuscular Hemoglobin 31 pg (25-35) Mean Corpuscular Hemoglobin Concent 33 g/dL (31-37) Red Cell Distribution Width 14.8 % (11.5-14.5) Platelet Count 180 x10^3/uL (140-400) Neutrophils (%) (Auto) 76 % (31-73) Lymphocytes (%) (Auto) 10 % (24-48) Monocytes (%) (Auto) 13 % (0-9) Eosinophils (%) (Auto) 0 % (0-3) Basophils (%) (Auto) 1 % (0-3) Neutrophils # (Auto) 3.7 x10^3/uL (1.8-7.7) Lymphocytes # (Auto) 0.5 x10^3/uL (1.0-4.8) Monocytes # (Auto) 0.6 x10^3/uL (0.0-1.1) Eosinophils # (Auto) 0.0 x10^3/uL (0.0-0.7) Basophils # (Auto) 0.0 x10^3/uL (0.0-0.2) Lactic Acid Level 1.9 mmol/L (0.4-2.0) Allergies: Coded Allergies: codeine (Verified Allergy, Intermediate, TOLERATES MORPHINE, 02/06/20) TOLERATES MORPHINE meperidine (Verified Adverse Reaction, Intermediate, Nausea and Vomiting, 02/06/20) Medications: Current Medications Medications (Trade) Dose Ordered Sig/Haim Route PRN Reason Start Time Stop Time Status Last Admin Dose Admin Vancomycin HCl (Vanco Per Pharmacy) 1 each PRN DAILY PRN MC SEE COMMENTS 06/12/20 18:30 06/13/20 02:05 Piperacillin Sod/ Tazobactam Sod 4.5 gm/Sodium Chloride 100 ml @ 200 mls/hr 1X ONCE IV 06/12/20 19:00 06/12/20 19:29 DC 06/12/20 19:02 Vancomycin HCl 2 gm/Sodium Chloride 500 ml @ 250 mls/hr 1X ONCE IV 06/12/20 20:00 06/12/20 21:59 DC 06/12/20 20:24 Ondansetron HCl (Zofran) 4 mg 1X ONCE IVP 06/12/20 20:30 06/12/20 21:06 DC 06/12/20 20:31 Metronidazole 100 ml @ 100 mls/hr 1X ONCE IV 06/13/20 00:00 06/13/20 00:59 DC 06/13/20 00:46 Ondansetron HCl (Zofran) 4 mg PRN Q8HRS PRN IV NAUSEA/VOMITING 06/13/20 00:15 06/14/20 00:14 06/13/20 04:01 Morphine Sulfate (Morphine Sulfate) 4 mg PRN Q2HR PRN IV PAIN 06/13/20 00:15 06/14/20 00:14 06/13/20 04:02 Piperacillin Sod/ Tazobactam Sod 3.375 gm/Sodium Chloride 50 ml @ 100 mls/hr Q6HRS IV 06/13/20 02:00 06/13/20 06:23 Sodium Chloride 1,000 ml @ 1,000 mls/hr 1X ONCE IV 06/13/20 04:00 06/13/20 04:59 DC 06/13/20 03:45 Imaging: Imaging: CT A/P 06/12 IMPRESSION: 1. There is mild wall thickening of the descending and sigmoid colon with an ahaustral appearance. There may also be slight wall thickening of the more proximal colon. The entire colon is fluid-filled compatible with diarrheal state. Findings suggest mild colitis, probably infectious including pseudomembranous colitis versus inflammatory bowel disease. CXR 06/12 Impression: Minimal basal infiltrates are seen previously and could be discoid atelectasis or pneumonia. PE: GEN: appears uncomfortable - laying on side - wound care present intergluteal cleft and stump wounds HEENT: Atraumatic, PERRL LUNGS: clear anteriorly HEART: RRR ABD: difficult to examine EXTREMITY: right AKA NEURO/PSYCH: awake and alert, [place] - same as in the past A/P: A/P: Abd pain, vomiting, diarrhea - recurrent UTI H/o recurrent C Diff CRC screen - colonoscopy to splenic flexure in 2017 Diverticular disease, s/p sigmoid resection S/p cholecystectomy -- On IV atbx and and PO vanco. C Diff pending, consider ID opinion. GIFTY PARKINSON Jun 13, 2020 09:28
--- NOTE | 2020-06-13 09:49 | HP ---
ADMIT DATE: 06/13/2020 CHIEF COMPLAINT: Abdominal pain, nausea, vomiting, fever, recent C. diff. HISTORY OF PRESENT ILLNESS: The patient is a pleasant 70-year-old female who has been recently diagnosed with C. diff, now her disease has progressed and she has worsening nausea, vomiting, diarrhea, it has been occurring for about 24 hours. I discussed the case with ER physician. We are going to admit the patient and consult GI and give her IV antibiotics including p.o. vancomycin. PAST MEDICAL HISTORY: Recent C diff, COPD, diabetes, GERD, hypertension, MRSA, hyperkalemia, hard of hearing, appendectomy, C. diff, cholecystectomy, colectomy, tonsillectomy, right [id number] amputation, hernia repair. ALLERGIES: MEPERIDINE AND CODEINE. FAMILY HISTORY: Diabetes. SOCIAL HISTORY: She does not drink, smoke or take drugs. MEDICATIONS: Reviewed, please refer to the MRAD. REVIEW OF SYSTEMS: GENERAL: No history of weight change, weakness or fevers. SKIN: No bruising, hair changes or rashes. EYES: No blurred, double or loss of vision. NOSE AND THROAT: No history of nosebleeds, hoarseness or sore throat. HEART: No history of palpitations, chest pain or shortness of breath on exertion. LUNGS: Denies cough, hemoptysis, wheezing or shortness of breath. GASTROINTESTINAL: She complains of abdominal pain, nausea, vomiting, and diarrhea. GENITOURINARY: No history of frequency, urgency, hesitancy or nocturia. NEUROLOGIC: Denies history of numbness, tingling, tremor or weakness. PSYCHIATRIC: No history of panic, anxiety or depression. ENDOCRINE: No history of heat or cold intolerance, polyuria or polydipsia. EXTREMITIES: Denies muscle weakness, joint pain, pain on walking or stiffness. PHYSICAL EXAMINATION: VITALS: Within normal limits and are stable. GENERAL: No apparent distress. Alert and oriented. HEENT: Normal cephalic atraumatic, external auditory canals are patent. EYES: Extraocular muscles are intact, pupils are equally round and reactive to light and accommodation. MUSCULOSKELETAL: Well developed, well nourished, good range of motion. ENDOCRINE: No thyromegaly was palpated. LYMPHATICS: No cervical chain or axillary nodes were noted. HEMATOPOIETIC: No bruising. NECK: Supple, no JVD, no thyromegaly was noted. LUNGS: Clear to auscultation in all lung [place] without rhonchi or wheezing. HEART: RRR, S1, S2 present. Peripheral pulses intact, no obvious murmurs were noted. ABDOMEN: She has decreased bowel sounds with some tenderness. EXTREMITIES: She has a right AKA. NEUROLOGIC: Normal speech, normal tone. A and O x 3, moves all extremities, no obvious focal deficits. PSYCHIATRIC: Normal affect, normal mood. Stable. SKIN: No ulcerations or rashes, good skin turgor, no jaundice. VASCULAR: Good capillary refill, neurovascular bundle appears to be intact. LABORATORY DATA: White count is 8, hemoglobin 13, platelets 202. Electrolytes normal other than a creatinine of 1.2, glucose is 120. INR is 1.2. Urinalysis, large amount of leukocyte esterase and too numerous to count white cells. ASSESSMENT AND PLAN: Progression of C. difficile with nausea, vomiting, diarrhea and incidental finding of urinary tract infection. The patient will be admitted. We will start her on p.o. vancomycin and IV broad-spectrum antibiotics. Consult GI. Home meds. DVT prophylaxis. Full code. PROGNOSIS: Guarded. MICHELLE WRAY DO DR: LEODAN/amparo JOB#: [id number] / [id number]
--- NOTE | 2020-06-13 11:51 | PDOC ---
Infectious Disease Note Vital Sign Vital Signs Vital Signs Date Time Temp Pulse Resp B/P (MAP) Pulse Ox O2 Delivery O2 Flow Rate FiO2 06/13/20 11:08 98.2 79 20 141/63 (89) 95 Room Air 2.0 98.2 Labs Lab Laboratory Tests Test 06/12/20 18:15 06/12/20 18:25 06/12/20 19:55 06/13/20 00:52 Urine Collection Type U cath Urine Color [place] Urine Clarity Turbid Urine pH 5.5 (<5.0-8.0) Urine Specific [place] 1.020 (1.000-1.030) Urine Protein 30 mg/dL (NEG-TRACE) Urine Glucose (UA) Negative mg/dL (NEG) Urine Ketones (Stick) Negative mg/dL (NEG) Urine Blood Moderate (NEG) Urine Nitrite Positive (NEG) Urine Bilirubin Negative (NEG) Urine Urobilinogen Dipstick 0.2 mg/dL (0.2 mg/dL) Urine Leukocyte Esterase Large (NEG) Urine RBC Rare /HPF (0-2) Urine WBC Tntc /HPF (0-4) Urine Squamous Epithelial Cells Few /LPF Urine Bacteria Many /HPF (0-FEW) Urine Mucus Mod /LPF White Blood Count 8.0 x10^3/uL (4.0-11.0) Red Blood Count 4.50 x10^6/uL (3.50-5.40) Hemoglobin 13.9 g/dL (12.0-15.5) Hematocrit 41.5 % (36.0-47.0) Mean Corpuscular Volume 92 fL (79-100) Mean Corpuscular Hemoglobin 31 pg (25-35) Mean Corpuscular Hemoglobin Concent 34 g/dL (31-37) Red Cell Distribution Width 14.2 % (11.5-14.5) Platelet Count 202 x10^3/uL (140-400) Neutrophils (%) (Auto) 77 % (31-73) Lymphocytes (%) (Auto) 12 % (24-48) Monocytes (%) (Auto) 9 % (0-9) Eosinophils (%) (Auto) 2 % (0-3) Basophils (%) (Auto) 1 % (0-3) Neutrophils # (Auto) 6.2 x10^3/uL (1.8-7.7) Lymphocytes # (Auto) 0.9 x10^3/uL (1.0-4.8) Monocytes # (Auto) 0.7 x10^3/uL (0.0-1.1) Eosinophils # (Auto) 0.2 x10^3/uL (0.0-0.7) Basophils # (Auto) 0.1 x10^3/uL (0.0-0.2) Sodium Level 140 mmol/L (136-145) Potassium Level 4.2 mmol/L (3.5-5.1) Chloride Level 103 mmol/L (98-107) Carbon Dioxide Level 30 mmol/L (21-32) Anion Gap 7 (6-14) Blood Urea Nitrogen 17 mg/dL (7-20) Creatinine 1.2 mg/dL (0.6-1.0) Estimated GFR (Cockcroft-Gault) 44.4 Glucose Level 120 mg/dL (70-99) Lactic Acid Level 1.1 mmol/L (0.4-2.0) 3.2 mmol/L (0.4-2.0) Calcium Level 8.5 mg/dL (8.5-10.1) Total Bilirubin 0.6 mg/dL (0.2-1.0) Direct Bilirubin 0.1 mg/dL (0.0-0.2) Aspartate Amino Transf (AST/SGOT) 31 U/L (15-37) Alanine Aminotransferase (ALT/SGPT) 16 U/L (14-59) Alkaline Phosphatase 73 U/L (46-116) Total Protein 8.0 g/dL (6.4-8.2) Albumin 3.1 g/dL (3.4-5.0) Procalcitonin 0.10 ng/mL (0.00-0.10) Prothrombin Time 14.4 SEC (11.7-14.0) Prothromb Time International Ratio 1.2 (0.8-1.1) Activated Partial Thromboplast Time 31 SEC (24-38) Test 06/13/20 05:50 06/13/20 05:56 White Blood Count 4.9 x10^3/uL (4.0-11.0) Red Blood Count 4.26 x10^6/uL (3.50-5.40) Hemoglobin 13.1 g/dL (12.0-15.5) Hematocrit 39.4 % (36.0-47.0) Mean Corpuscular Volume 93 fL (79-100) Mean Corpuscular Hemoglobin 31 pg (25-35) Mean Corpuscular Hemoglobin Concent 33 g/dL (31-37) Red Cell Distribution Width 14.8 % (11.5-14.5) Platelet Count 180 x10^3/uL (140-400) Neutrophils (%) (Auto) 76 % (31-73) Lymphocytes (%) (Auto) 10 % (24-48) Monocytes (%) (Auto) 13 % (0-9) Eosinophils (%) (Auto) 0 % (0-3) Basophils (%) (Auto) 1 % (0-3) Neutrophils # (Auto) 3.7 x10^3/uL (1.8-7.7) Lymphocytes # (Auto) 0.5 x10^3/uL (1.0-4.8) Monocytes # (Auto) 0.6 x10^3/uL (0.0-1.1) Eosinophils # (Auto) 0.0 x10^3/uL (0.0-0.7) Basophils # (Auto) 0.0 x10^3/uL (0.0-0.2) Lactic Acid Level 1.9 mmol/L (0.4-2.0) Objective Assessment pt seen, consult dictated Plan Plan of Care / GRIS MARTIN MD Jun 13, 2020 11:51
[2020-06-13] MEDS: IV NORMAL SALINE 1000ML BAG 1,000 ML IV SCH ×2 (12:16→20:32)
[2020-06-13] MEDS: VANCOMYCIN 125 MG/2.5 ML ORAL SOLUTION. PO SCH ×3 (12:17→20:31)
[2020-06-13] MEDS: NYSTATIN TOPICAL POWDER 15GM BOTTLE. TP SCH ×2 (13:00→20:39)
--- NOTE | 2020-06-13 13:06 | CONS ---
DATE OF CONSULTATION: 06/13/2020 REQUESTING PHYSICIAN: Rafa Bangura DO. REASON FOR CONSULTATION: C. diff. HISTORY OF PRESENT ILLNESS: This is a 70-year-old female with multiple medical problems who is essentially bedbound. The patient was seen in May early part and treated from here, probably went back to the nursing facility. It says that she had recent C. diff probably must have been at the nursing facility since there is no C. diff documented here in May. The patient did have C. diff in July last year as well as in January last year. The patient had a fever of 101, encephalopathic, although how much is encephalopathic because unable to hear versus she is truly encephalopathic. The patient also had severe diarrhea. Lactic acid up to 3.2. The patient is admitted. The patient got various different antibiotics including one dose of Cipro, one dose of Flagyl, one dose of Zosyn, one dose of vancomycin and IV as well as oral now. The patient is awake, comfortable, although very poor hearing makes it difficult to communicate. No nausea or vomiting reported by RN. PAST MEDICAL HISTORY: Positive for COPD, gastroesophageal reflux disease, diabetes, obesity, right above-knee amputation, history of C. diff in the past, history of MRSA, has had cholecystectomy, appendicectomy, colectomy. SOCIAL HISTORY: Negative for smoking, alcohol or illicit drug use. ALLERGIES: TO MEPERIDINE AND CODEINE. REVIEW OF SYSTEMS: As in HPI. All other systems reviewed are negative. CURRENT MEDICATIONS: Reviewed. PHYSICAL EXAMINATION: GENERAL: Alert, but orientation unable to sample clerk, 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 VITAL SIGNS: Stable. Temperature 98.2 with a T-max 101, pulse 79, respirations 20, blood pressure 141/63. HEENT: Both pupils are round and reacting. No conjunctival lesion, no lesion in the mouth. NECK: Supple, no JVP, no lymphadenopathy. LUNGS: Clear. HEART: S1, S2 regular. ABDOMEN: Diffusely tender, no rebound or guarding. No organomegaly. Abdomen is not distended either. EXTREMITIES: No edema or cyanosis. SKIN: Rest of skin exam is unremarkable. NEUROLOGIC: The patient is alert, awake, smiles, but unable to sample clerk her orientation because of very poor hearing. LABORATORY DATA: White count is 4.9, hemoglobin 13.1, platelets are 180,000. BUN and creatinine is 17 and 1.2. Lactic acid 3.2, which has improved to 1.9. Urinalysis showed too numerous to count wbc's. Stool for C. diff is pending. IMPRESSION: 1. Severe diarrhea and CT of the abdomen and pelvis showing colitis, most likely she has Clostridium difficile. We do not have any testing done yet. She may have had done at a nursing facility. 2. Fever. 3. Acute kidney injury. 4. Obesity. 5. Diabetes. 6. Hypertension. 7. Chronic obstructive pulmonary disease. RECOMMENDATIONS: We will discontinue IV vancomycin, continue Zosyn, change p.o. vancomycin to 125 four times a day. Supportive care, hydration, and we will continue to follow. Thank you very much, Dr. Bangura, for giving me the opportunity to participate in this patient's care. GRIS MARTIN MD DR: WANDER/amparo JOB#: [id number] / [id number]
[2020-06-13] MEDS ORDERED: VANCOMYCIN 1.25 GM in IV NORMAL SALINE 250ML 250 ML IV SCH (20:30)
[2020-06-13] MEDS: LACTOBACILLUS RHAMNOSUS GG 1 CAPSULE. PO SCH (20:30)
[2020-06-14] MEDS: PIPERACILLIN/TAZOBACTAM 3.375 GM in IV NORMAL SALINE 50ML 50 ML IV SCH ×2 (00:14→05:28)
[2020-06-14 02:48] VITALS: BP 139/64
[2020-06-14] MEDS: IV NORMAL SALINE 1000ML BAG 1,000 ML IV SCH ×2 (05:29→11:51)
[2020-06-14 07:00] VITALS: BP 127/70
[2020-06-14] MEDS: VANCOMYCIN 125 MG/2.5 ML ORAL SOLUTION. PO SCH ×4 (08:52→20:30)
[2020-06-14] MEDS: LACTOBACILLUS RHAMNOSUS GG 1 CAPSULE. PO SCH ×2 (08:52→20:30)
[2020-06-14] MEDS: NYSTATIN TOPICAL POWDER 15GM BOTTLE. TP SCH ×2 (08:54→20:31)
--- NOTE | 2020-06-14 09:07 | PDOC ---
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 VITAL SIGNS: Stable. HEENT: Both pupils are round and reacting. No conjunctival lesion, no lesion in the mouth. NECK: Supple, no JVP, no lymphadenopathy. LUNGS: Clear. HEART: S1, S2 regular. ABDOMEN: Diffusely tender, no rebound or guarding. No organomegaly. Abdomen is not distended either. EXTREMITIES: No edema or cyanosis. SKIN: Rest of skin exam is unremarkable. NEUROLOGIC: The patient is alert, awake, smiles, but unable to pesticide control inspector her orientation because of very poor hearing. Labs Lab Laboratory Tests Test 06/13/20 20:31 06/14/20 07:40 Glucose (Fingerstick) 120 mg/dL (70-99) 90 mg/dL (70-99) Objective Assessment IMPRESSION: 1. Severe diarrhea and CT of the abdomen and pelvis showing colitis, c diff + 2. Fever. 3. Acute kidney injury. 4. Obesity. 5. Diabetes. 6. Hypertension. 7. Chronic obstructive pulmonary disease. Plan Plan of Care d/c zosyn cont po vanc supportive care GRIS MARTIN MD Jun 14, 2020 09:07
--- NOTE | 2020-06-14 09:37 | PDOC ---
Date of Service: DATE: 06/14/20 TIME: 09:35 Subjective: Subjective: No history from [facility]. Objective: Objective: D/w nurse. Vital Signs: Vital Signs Date Time Temp Pulse Resp B/P (MAP) Pulse Ox O2 Delivery O2 Flow Rate FiO2 06/14/20 07:57 Nasal Cannula 2.0 06/14/20 07:00 98.5 80 15 127/70 (89) 100 98.5 Labs: Laboratory Tests Test 06/13/20 20:31 06/14/20 07:40 Glucose (Fingerstick) 120 mg/dL (70-99) 90 mg/dL (70-99) PE: GEN: NAD LUNGS: clear anteriorly HEART: RRR ABD: soft, winces w/ palpation, non-specific, rectal tube w/ dark liquid stool NEURO/PSYCH: awake, smiles, [place] A/P: Recurrent C Diff - on vanco per ID ?UTI -- Continue vanco. Okay to ADAT per GI. Justicifation of Admission Dx: Justifications for Admission: Justification of Admission Dx: N/A GIFTY PARKINSON Jun 14, 2020 09:37
--- NOTE | 2020-06-14 09:41 | NUR ---
SW following. Discussed with RN, pt from home with daughter, 2L (does not use at home), clear liquid diet. Pt is Cdiff +, IV abx. Wound care following. PT has [facility]BS services through [facility]. SW will continue to follow.
[2020-06-14 10:44] LABS: BASO # 0.1 x10^3/uL (0.0-0.2); BASO % 1 % (0-3); EOS # 0.1 x10^3/uL (0.0-0.7); EOS % 1 % (0-3); HEMATOCRIT 35.5 % (36.0-47.0); HEMOGLOBIN 11.9 g/dL (12.0-15.5); LYMPH # 1.6 x10^3/uL (1.0-4.8); LYMPH % 22 % (24-48); MEAN CORPUSCULAR HEMOGLOBIN 31 pg (25-35); MEAN CORPUSCULAR HGB CONC 34 g/dL (31-37); MEAN CORPUSCULAR VOLUME 92 fL (79-100); MONO # 0.9 x10^3/uL (0.0-1.1); MONO % 12 % (0-9); NEUT # 4.7 x10^3/uL (1.8-7.7); NEUT % 65 % (31-73); PLATELET COUNT 171 x10^3/uL (140-400); RED BLOOD COUNT 3.87 x10^6/uL (3.50-5.40); RED CELL DISTRIBUTION WIDTH 14.5 % (11.5-14.5); WHITE BLOOD COUNT 7.3 x10^3/uL (4.0-11.0)
[2020-06-14 10:57] LABS: ALBUMIN 2.1 g/dL (3.4-5.0); ALBUMIN/GLOBULIN RATIO 0.5 (1.0-1.7); CALCIUM 7.8 mg/dL (8.5-10.1); CREATININE 1.2 mg/dL (0.6-1.0); GFR 44.4; POTASSIUM 4.3 mmol/L (3.5-5.1); TOTAL BILIRUBIN 0.5 mg/dL (0.2-1.0); TOTAL PROTEIN 6.2 g/dL (6.4-8.2)
[2020-06-14 11:00] VITALS: BP 157/83
--- NOTE | 2020-06-14 11:24 | PDOC ---
[facility] PROGRESS NOTE Date of Service DOS: DATE: 06/14/20 TIME: 11:20 Chief Complaint Chief Complaint pseudomembranous colitis History of Present Illness History of Present Illness 06/14/2020 - pt seen and evaluated at bedside - pt is pleasantly confused - on 2 L of O2 NC - pt currently taking vancomycin and zosyn - continue to monitor rectal bag Vitals/I&O Vitals/I&O: Vital Signs Date Time Temp Pulse Resp B/P (MAP) Pulse Ox O2 Delivery O2 Flow Rate FiO2 06/14/20 07:57 Nasal Cannula 2.0 06/14/20 07:00 98.5 80 15 127/70 (89) 100 98.5 I & O 06/13/20 06/13/20 06/14/20 15:00 23:00 07:00 Intake Total 0 ml 1150 ml 150 ml Output Total 675 ml Balance 0 ml 1150 ml -525 ml Physical Exam Physical Exam: GENERAL: Alert, but 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 VITAL SIGNS: Stable. HEENT: Both pupils are round and reacting. No conjunctival lesion, no lesion in the mouth. NECK: Supple, no JVP, no lymphadenopathy. LUNGS: Clear. HEART: S1, S2 regular. ABDOMEN: Diffusely tender, no rebound or guarding. No organomegaly. Abdomen is not distended either. EXTREMITIES: No edema or cyanosis. SKIN: Rest of skin exam is unremarkable. NEUROLOGIC: The patient is alert, awake, smiles, but unable to latin dance instructor her orientation because of very poor hearing. General: Alert, No acute distress Heart: Regular rate, No murmurs Lungs: Clear, Wheezing Abdomen: Soft, No masses Extremities: No clubbing, No cyanosis Skin: No rashes, No significant lesion Labs Labs: Laboratory Tests Test 06/13/20 20:31 06/14/20 07:40 06/14/20 10:24 Glucose (Fingerstick) 120 mg/dL (70-99) 90 mg/dL (70-99) White Blood Count 7.3 x10^3/uL (4.0-11.0) Red Blood Count 3.87 x10^6/uL (3.50-5.40) Hemoglobin 11.9 g/dL (12.0-15.5) Hematocrit 35.5 % (36.0-47.0) Mean Corpuscular Volume 92 fL (79-100) Mean Corpuscular Hemoglobin 31 pg (25-35) Mean Corpuscular Hemoglobin Concent 34 g/dL (31-37) Red Cell Distribution Width 14.5 % (11.5-14.5) Platelet Count 171 x10^3/uL (140-400) Neutrophils (%) (Auto) 65 % (31-73) Lymphocytes (%) (Auto) 22 % (24-48) Monocytes (%) (Auto) 12 % (0-9) Eosinophils (%) (Auto) 1 % (0-3) Basophils (%) (Auto) 1 % (0-3) Neutrophils # (Auto) 4.7 x10^3/uL (1.8-7.7) Lymphocytes # (Auto) 1.6 x10^3/uL (1.0-4.8) Monocytes # (Auto) 0.9 x10^3/uL (0.0-1.1) Eosinophils # (Auto) 0.1 x10^3/uL (0.0-0.7) Basophils # (Auto) 0.1 x10^3/uL (0.0-0.2) Sodium Level 144 mmol/L (136-145) Potassium Level 4.3 mmol/L (3.5-5.1) Chloride Level 112 mmol/L (98-107) Carbon Dioxide Level 25 mmol/L (21-32) Anion Gap 7 (6-14) Blood Urea Nitrogen 21 mg/dL (7-20) Creatinine 1.2 mg/dL (0.6-1.0) Estimated GFR (Cockcroft-Gault) 44.4 BUN/Creatinine Ratio 18 (6-20) Glucose Level 99 mg/dL (70-99) Calcium Level 7.8 mg/dL (8.5-10.1) Total Bilirubin 0.5 mg/dL (0.2-1.0) Aspartate Amino Transf (AST/SGOT) 29 U/L (15-37) Alanine Aminotransferase (ALT/SGPT) 12 U/L (14-59) Alkaline Phosphatase 61 U/L (46-116) Total Protein 6.2 g/dL (6.4-8.2) Albumin 2.1 g/dL (3.4-5.0) Albumin/Globulin Ratio 0.5 (1.0-1.7) Review of Systems Review of Systems: pt denies change in vision or OLIVER Assessment and Plan Assessmemt and Plan Problems Medical Problems: (1) Pseudomembranous colitis Status: Acute Assessment - pseudomembranous colitis Plan - pt will go [facility] - continue to monitor rectal bag - continue supplemental O2 - clear liquids diet - begin procalamine 75 and stop NS Comment Review of Relevant I have reviewed the following items marcio (where applicable) has been applied. Medications: Current Medications Medications (Trade) Dose Ordered Sig/Haim Route PRN Reason Start Time Stop Time Status Last Admin Dose Admin Lactobacillus Rhamnosus (Culturelle) 1 cap BID PO 06/13/20 21:00 06/14/20 08:52 Vancomycin HCl (Vancomycin Oral Solution) 125 mg QID PO 06/13/20 13:00 06/14/20 08:52 Sodium Chloride 1,000 ml @ 125 mls/hr Q8H IV 06/13/20 13:00 06/14/20 05:29 Nystatin (Nystop) 1 paloma BID TP 06/13/20 13:00 06/14/20 08:54 Justifications for Admission Other Justification diarrhea and UTI MICHELLE WRAY III DO Jun 14, 2020 11:24
[2020-06-14] MEDS: AMINO AC 3%/ELECTROLYTE/GLYCER 1,000 ML IV SCH ×2 (12:08→23:56)
[2020-06-14 14:15] LABS: % BANDS 37 % (0-9); % BASOS 2 % (0-3); % EOS 1 % (0-5); % LYMPHS 24 % (24-48); % MONOS 7 % (0-10); % SEGS 29 % (35-66); PLT ESTIMATE ADEQUATE (ADEQUATE)
[2020-06-14 14:16] LABS: TOXIC GRANULATION MOD
[2020-06-14 14:17] LABS: POLYCHROMASIA SLIGHT
[2020-06-14 15:00] VITALS: BP 155/81
[2020-06-14] MEDS: MORPHINE SULFATE 2 MG/ML VIAL. IV PRN ×2 (16:38→23:56)
[2020-06-14 19:25] VITALS: BP 140/94
[2020-06-14] MEDS: ONDANSETRON PF 4 MG/2 ML VIAL. IVP PRN (22:33)
[2020-06-14 23:16] VITALS: BP 171/81
[2020-06-15 03:08] VITALS: BP 165/82
[2020-06-15] MEDS: MORPHINE SULFATE 2 MG/ML VIAL. IV PRN (04:23)
[2020-06-15 07:00] VITALS: BP 160/78
--- NOTE | 2020-06-15 08:31 | PDOC ---
PROGRESS NOTES Date of Service: DATE: 06/15/20 TIME: 08:31 Chief Complaint Chief Complaint pseudomembranous colitis History of Present Illness History of Present Illness 06/15/2020 - pt seen and evaluated at bedside - pt is pleasantly confused - on 2 L of O2 NC - pt currently taking vancomycin and zosyn - continue to monitor rectal bag cont po vanc supportive care d/w RN Vitals Vitals Vital Signs Date Time Temp Pulse Resp B/P (MAP) Pulse Ox O2 Delivery O2 Flow Rate FiO2 06/15/20 07:55 Nasal Cannula 2.0 06/15/20 07:00 98.4 75 18 160/78 (105) 97 98.4 Physical Exam Physical Exam GENERAL: Alert, but 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 VITAL SIGNS: Stable. HEENT: Both pupils are round and reacting. No conjunctival lesion, no lesion in the mouth. NECK: Supple, no JVP, no lymphadenopathy. LUNGS: Clear. HEART: S1, S2 regular. ABDOMEN: Diffusely tender, no rebound or guarding. No organomegaly. Abdomen is not distended either. EXTREMITIES: No edema or cyanosis. SKIN: Rest of skin exam is unremarkable. NEUROLOGIC: The patient is alert, awake, smiles, but unable to material damage adjuster her orientation because of very poor hearing. General: Alert, Cooperative, No acute distress Heart: Regular rate, No murmurs Lungs: Clear, Wheezing Abdomen: Soft, No masses Extremities: No clubbing, No cyanosis Skin: No rashes, No significant lesion Labs LABS Laboratory Tests Test 06/14/20 10:24 06/14/20 11:41 06/14/20 17:35 06/14/20 20:36 White Blood Count 7.3 x10^3/uL (4.0-11.0) Red Blood Count 3.87 x10^6/uL (3.50-5.40) Hemoglobin 11.9 g/dL (12.0-15.5) Hematocrit 35.5 % (36.0-47.0) Mean Corpuscular Volume 92 fL (79-100) Mean Corpuscular Hemoglobin 31 pg (25-35) Mean Corpuscular Hemoglobin Concent 34 g/dL (31-37) Red Cell Distribution Width 14.5 % (11.5-14.5) Platelet Count 171 x10^3/uL (140-400) Neutrophils (%) (Auto) 65 % (31-73) Lymphocytes (%) (Auto) 22 % (24-48) Monocytes (%) (Auto) 12 % (0-9) Eosinophils (%) (Auto) 1 % (0-3) Basophils (%) (Auto) 1 % (0-3) Neutrophils # (Auto) 4.7 x10^3/uL (1.8-7.7) Lymphocytes # (Auto) 1.6 x10^3/uL (1.0-4.8) Monocytes # (Auto) 0.9 x10^3/uL (0.0-1.1) Eosinophils # (Auto) 0.1 x10^3/uL (0.0-0.7) Basophils # (Auto) 0.1 x10^3/uL (0.0-0.2) Segmented Neutrophils % 29 % (35-66) Band Neutrophils % 37 % (0-9) Lymphocytes % 24 % (24-48) Monocytes % 7 % (0-10) Eosinophils % 1 % (0-5) Basophils % 2 % (0-3) Toxic Granulation Mod Platelet Estimate Adequate (ADEQUATE) Polychromasia Slight Sodium Level 144 mmol/L (136-145) Potassium Level 4.3 mmol/L (3.5-5.1) Chloride Level 112 mmol/L (98-107) Carbon Dioxide Level 25 mmol/L (21-32) Anion Gap 7 (6-14) Blood Urea Nitrogen 21 mg/dL (7-20) Creatinine 1.2 mg/dL (0.6-1.0) Estimated GFR (Cockcroft-Gault) 44.4 BUN/Creatinine Ratio 18 (6-20) Glucose Level 99 mg/dL (70-99) Calcium Level 7.8 mg/dL (8.5-10.1) Total Bilirubin 0.5 mg/dL (0.2-1.0) Aspartate Amino Transf (AST/SGOT) 29 U/L (15-37) Alanine Aminotransferase (ALT/SGPT) 12 U/L (14-59) Alkaline Phosphatase 61 U/L (46-116) Total Protein 6.2 g/dL (6.4-8.2) Albumin 2.1 g/dL (3.4-5.0) Albumin/Globulin Ratio 0.5 (1.0-1.7) Glucose (Fingerstick) 89 mg/dL (70-99) 115 mg/dL (70-99) 125 mg/dL (70-99) Test 06/15/20 08:00 Glucose (Fingerstick) 100 mg/dL (70-99) Assessment and Plan Assessmemt and Plan Problems Medical Problems: (1) Pseudomembranous colitis Status: Acute Comment Review of Relevant I have reviewed the following items marcio (where applicable) has been applied. Labs Laboratory Tests Test 06/13/20 20:31 06/14/20 07:40 06/14/20 10:24 06/14/20 11:41 Glucose (Fingerstick) 120 mg/dL (70-99) 90 mg/dL (70-99) 89 mg/dL (70-99) White Blood Count 7.3 x10^3/uL (4.0-11.0) Red Blood Count 3.87 x10^6/uL (3.50-5.40) Hemoglobin 11.9 g/dL (12.0-15.5) Hematocrit 35.5 % (36.0-47.0) Mean Corpuscular Volume 92 fL (79-100) Mean Corpuscular Hemoglobin 31 pg (25-35) Mean Corpuscular Hemoglobin Concent 34 g/dL (31-37) Red Cell Distribution Width 14.5 % (11.5-14.5) Platelet Count 171 x10^3/uL (140-400) Neutrophils (%) (Auto) 65 % (31-73) Lymphocytes (%) (Auto) 22 % (24-48) Monocytes (%) (Auto) 12 % (0-9) Eosinophils (%) (Auto) 1 % (0-3) Basophils (%) (Auto) 1 % (0-3) Neutrophils # (Auto) 4.7 x10^3/uL (1.8-7.7) Lymphocytes # (Auto) 1.6 x10^3/uL (1.0-4.8) Monocytes # (Auto) 0.9 x10^3/uL (0.0-1.1) Eosinophils # (Auto) 0.1 x10^3/uL (0.0-0.7) Basophils # (Auto) 0.1 x10^3/uL (0.0-0.2) Segmented Neutrophils % 29 % (35-66) Band Neutrophils % 37 % (0-9) Lymphocytes % 24 % (24-48) Monocytes % 7 % (0-10) Eosinophils % 1 % (0-5) Basophils % 2 % (0-3) Toxic Granulation Mod Platelet Estimate Adequate (ADEQUATE) Polychromasia Slight Sodium Level 144 mmol/L (136-145) Potassium Level 4.3 mmol/L (3.5-5.1) Chloride Level 112 mmol/L (98-107) Carbon Dioxide Level 25 mmol/L (21-32) Anion Gap 7 (6-14) Blood Urea Nitrogen 21 mg/dL (7-20) Creatinine 1.2 mg/dL (0.6-1.0) Estimated GFR (Cockcroft-Gault) 44.4 BUN/Creatinine Ratio 18 (6-20) Glucose Level 99 mg/dL (70-99) Calcium Level 7.8 mg/dL (8.5-10.1) Total Bilirubin 0.5 mg/dL (0.2-1.0) Aspartate Amino Transf (AST/SGOT) 29 U/L (15-37) Alanine Aminotransferase (ALT/SGPT) 12 U/L (14-59) Alkaline Phosphatase 61 U/L (46-116) Total Protein 6.2 g/dL (6.4-8.2) Albumin 2.1 g/dL (3.4-5.0) Albumin/Globulin Ratio 0.5 (1.0-1.7) Test 06/14/20 17:35 06/14/20 20:36 06/15/20 08:00 Glucose (Fingerstick) 115 mg/dL (70-99) 125 mg/dL (70-99) 100 mg/dL (70-99) Laboratory Tests Test 06/14/20 10:24 06/14/20 11:41 06/14/20 17:35 06/14/20 20:36 White Blood Count 7.3 x10^3/uL (4.0-11.0) Red Blood Count 3.87 x10^6/uL (3.50-5.40) Hemoglobin 11.9 g/dL (12.0-15.5) Hematocrit 35.5 % (36.0-47.0) Mean Corpuscular Volume 92 fL (79-100) Mean Corpuscular Hemoglobin 31 pg (25-35) Mean Corpuscular Hemoglobin Concent 34 g/dL (31-37) Red Cell Distribution Width 14.5 % (11.5-14.5) Platelet Count 171 x10^3/uL (140-400) Neutrophils (%) (Auto) 65 % (31-73) Lymphocytes (%) (Auto) 22 % (24-48) Monocytes (%) (Auto) 12 % (0-9) Eosinophils (%) (Auto) 1 % (0-3) Basophils (%) (Auto) 1 % (0-3) Neutrophils # (Auto) 4.7 x10^3/uL (1.8-7.7) Lymphocytes # (Auto) 1.6 x10^3/uL (1.0-4.8) Monocytes # (Auto) 0.9 x10^3/uL (0.0-1.1) Eosinophils # (Auto) 0.1 x10^3/uL (0.0-0.7) Basophils # (Auto) 0.1 x10^3/uL (0.0-0.2) Segmented Neutrophils % 29 % (35-66) Band Neutrophils % 37 % (0-9) Lymphocytes % 24 % (24-48) Monocytes % 7 % (0-10) Eosinophils % 1 % (0-5) Basophils % 2 % (0-3) Toxic Granulation Mod Platelet Estimate Adequate (ADEQUATE) Polychromasia Slight Sodium Level 144 mmol/L (136-145) Potassium Level 4.3 mmol/L (3.5-5.1) Chloride Level 112 mmol/L (98-107) Carbon Dioxide Level 25 mmol/L (21-32) Anion Gap 7 (6-14) Blood Urea Nitrogen 21 mg/dL (7-20) Creatinine 1.2 mg/dL (0.6-1.0) Estimated GFR (Cockcroft-Gault) 44.4 BUN/Creatinine Ratio 18 (6-20) Glucose Level 99 mg/dL (70-99) Calcium Level 7.8 mg/dL (8.5-10.1) Total Bilirubin 0.5 mg/dL (0.2-1.0) Aspartate Amino Transf (AST/SGOT) 29 U/L (15-37) Alanine Aminotransferase (ALT/SGPT) 12 U/L (14-59) Alkaline Phosphatase 61 U/L (46-116) Total Protein 6.2 g/dL (6.4-8.2) Albumin 2.1 g/dL (3.4-5.0) Albumin/Globulin Ratio 0.5 (1.0-1.7) Glucose (Fingerstick) 89 mg/dL (70-99) 115 mg/dL (70-99) 125 mg/dL (70-99) Test 06/15/20 08:00 Glucose (Fingerstick) 100 mg/dL (70-99) Microbiology 06/12/20 Urine Culture - Final, Complete 06/12/20 Antimicrobic Susceptibility - Final, Complete 06/12/20 Blood Culture - Preliminary, Resulted NO GROWTH AFTER 1 DAY Medications Current Medications Vancomycin HCl (Vanco Per Pharmacy) 1 each PRN DAILY PRN MC SEE COMMENTS Last administered on 06/13/20at 11:47; Start 06/12/20 at 18:30; Stop 06/13/20 at 11:52; Status DC Piperacillin Sod/ Tazobactam Sod 4.5 gm/Sodium Chloride 100 ml @ 200 mls/hr Q6HRS IV ; Start 06/13/20 at 00:00; Stop 06/13/20 at 02:00; Status DC Piperacillin Sod/ Tazobactam Sod 4.5 gm/Sodium Chloride 100 ml @ 200 mls/hr 1X ONCE IV Last administered on 06/12/20at 19:02; Start 06/12/20 at 19:00; Stop 06/12/20 at 19:29; Status DC Vancomycin HCl 2 gm/Sodium Chloride 500 ml @ 250 mls/hr 1X ONCE IV Last administered on 06/12/20at 20:24; Start 06/12/20 at 20:00; Stop 06/12/20 at 21:59; Status DC Ondansetron HCl (Zofran) 4 mg STK-MED ONCE .ROUTE ; Start 06/12/20 at 20:25; Stop 06/12/20 at 20:25; Status DC Ondansetron HCl (Zofran Odt) 4 mg 1X ONCE PO ; Start 06/12/20 at 20:30; Stop 06/12/20 at 20:31; Status UNV Ondansetron HCl (Zofran) 4 mg 1X ONCE IVP Last administered on 06/12/20at 20:31; Start 06/12/20 at 20:30; Stop 06/12/20 at 21:06; Status DC Ciprofloxacin/ Dextrose 200 ml @ 200 mls/hr 1X ONCE IV ; Start 06/13/20 at 00:00; Stop 06/13/20 at 00:03; Status DC Metronidazole 100 ml @ 100 mls/hr 1X ONCE IV Last administered on 06/13/20at 00:46; Start 06/13/20 at 00:00; Stop 06/13/20 at 00:59; Status DC Ondansetron HCl (Zofran) 4 mg PRN Q8HRS PRN IV NAUSEA/VOMITING Last administered on 06/13/20at 17:47; Start 06/13/20 at 00:15; Stop 06/14/20 at 00:14; Status DC Morphine Sulfate (Morphine Sulfate) 4 mg PRN Q2HR PRN IV PAIN Last administered on 06/13/20at 09:41; Start 06/13/20 at 00:15; Stop 06/14/20 at 00:14; Status DC Vancomycin HCl 2 gm/Sodium Chloride 500 ml @ 250 mls/hr Q12H IV ; Start 06/13/20 at 08:30; Stop 06/13/20 at 01:50; Status DC Vancomycin HCl (Vancomycin Trough Level) 1 each 1X ONCE MC ; Start 06/14/20 at 20:00; Stop 06/14/20 at 20:01; Status Cancel Vancomycin HCl 1.25 gm/Sodium Chloride 250 ml @ 167 mls/hr Q24H IV ; Start 06/13/20 at 20:30; Stop 06/13/20 at 11:51; Status DC Piperacillin Sod/ Tazobactam Sod 3.375 gm/Sodium Chloride 50 ml @ 100 mls/hr Q6HRS IV Last administered on 06/14/20at 05:28; Start 06/13/20 at 02:00; Stop 06/14/20 at 08:55; Status DC Sodium Chloride 1,000 ml @ 1,000 mls/hr 1X ONCE IV Last administered on 06/13/20at 03:45; Start 06/13/20 at 04:00; Stop 06/13/20 at 04:59; Status DC Vancomycin HCl (Vancomycin Oral Solution) 125 mg TID PO ; Start 06/13/20 at 09:00; Stop 06/13/20 at 11:51; Status DC Pharmacy Consult (C.diff Med Screen By Rx) 1 each 1X ONCE MC ; Start 06/13/20 at 09:00; Stop 06/13/20 at 09:01; Status Cancel Lactobacillus Rhamnosus (Culturelle) 1 cap BID PO Last administered on 06/14/20at 20:30; Start 06/13/20 at 21:00 Vancomycin HCl (Vancomycin Oral Solution) 125 mg QID PO Last administered on 06/14/20at 20:30; Start 06/13/20 at 13:00 Sodium Chloride 1,000 ml @ 125 mls/hr Q8H IV Last administered on 06/14/20at 05:29; Start 06/13/20 at 13:00; Stop 06/14/20 at 15:04; Status DC Nystatin (Nystop) 1 kia BID TP Last administered on 06/14/20at 20:31; Start 06/13/20 at 13:00 Amino Acids/ Glycerin/ Electrolytes 1,000 ml @ 80 mls/hr [id number] IV Last administered on 06/14/20at 23:56; Start 06/14/20 at 11:30 Morphine Sulfate (Morphine Sulfate) 2 mg PRN Q2HR PRN IV PAIN Last administered on 06/15/20at 04:23; Start 06/14/20 at 16:30 Ondansetron HCl (Zofran) 4 mg PRN Q6HRS PRN IVP NAUSEA/VOMITING Last administered on 06/14/20at 22:33; Start 06/14/20 at 21:00 Active Scripts Active Cefpodoxime Proxetil 200 Mg Tablet 1 Tab PO BID 10 Days Admelog (Insulin Lispro) 100 Unit/1 Ml Vial 0 Units SQ TIDWMEALS 30 Days Culturelle (Lactobacillus Rhamnosus Gg) 1 Each Cap.sprink 1 Cap PO BID 30 Days Metamucil Fiber Singles Packet (Psyllium Husk/Aspartame) 3.4 Gm Powd.pack 1 Pkt PO QHS 30 Days Dok (Docusate Sodium) 100 Mg Capsule 100 Mg PO PRN BID PRN 30 Days Olanzapine Odt (Olanzapine) 5 Mg Tab.rapdis 5 Mg PO PRN BID PRN 14 Days Tylenol (Acetaminophen) 325 Mg Tablet 650 Mg PO PRN Q4HRS PRN 30 Days Combivent Respimat Inhal (Ipratropium/Albuterol Sulfate) 4 Gm Aer.w.adap 2 Inh IH QID 30 Days Reported Viberzi (Eluxadoline) 75 Mg Tablet 75 Mg PO BID Trazodone Hcl 50 Mg Tablet 1 Tab PO QHS Celexa (Citalopram Hydrobromide) 20 Mg Tablet 1 Tab PO DAILY Zofran (Ondansetron Hcl) 4 Mg Tablet 1 Tab PO PRN Q4HRS PRN Lisinopril 20 Mg Tablet 1 Tab PO DAILY Nystatin 15 Gm Powder 1 Kia TP BID Vesicare (Solifenacin Succinate) 10 Mg Tablet 1 Tab PO DAILY Flomax (Tamsulosin Hcl) 0.4 Mg Cap.er.24h 1 Cap PO HS Vitals/I & O Vital Sign - Last 24 Hours 06/14/20 06/14/20 06/14/20 06/14/20 11:00 15:00 19:25 20:00 Temp 98.8 98.9 99.3 98.8 98.9 99.3 Pulse 83 85 85 Resp 16 16 18 B/P (MAP) 157/83 (107) 155/81 (105) 140/94 (109) Pulse Ox 98 98 97 O2 Delivery Nasal Cannula Nasal Cannula Nasal Cannula Nasal Cannula O2 Flow Rate 2.0 2.0 2.0 2.0 06/14/20 06/14/20 06/15/20 06/15/20 23:16 23:56 00:26 03:08 Temp 99.7 98.9 99.7 98.9 Pulse 79 69 Resp 18 14 14 18 B/P (MAP) 171/81 (111) 165/82 (109) Pulse Ox 96 96 96 94 O2 Delivery Nasal Cannula Nasal Cannula Nasal Cannula Nasal Cannula O2 Flow Rate 2.0 2.0 2.0 2.0 06/15/20 06/15/20 06/15/20 06/15/20 04:23 04:52 07:00 07:55 Temp 98.4 98.4 Pulse 75 Resp 16 15 18 B/P (MAP) 160/78 (105) Pulse Ox 94 94 97 O2 Delivery Nasal Cannula Nasal Cannula Nasal Cannula Nasal Cannula O2 Flow Rate 2.0 2.0 2.0 2.0 Intake and Output 06/14/20 06/14/20 06/15/20 15:00 23:00 07:00 Intake Total 120 ml 0 ml 1830 ml Output Total 1850 ml Balance 120 ml 0 ml -20 ml Nutrition Consultation Dietary Evaluation: Recommendations by RD: Dietary education by RD, Increase Calorie Intake, Protein supplementation Comments: REC ADA/Cardiac diet mvi and vit c per wound protocal offer Glucerna or kianna supplements prn Expected Outcomes/Goals: to meet >75% est nutr needs Malnutrition Findings: Body Fat Depletion (Non Severe: Mild Depletion Weight Status: Obese Justicifation of Admission Dx: Justifications for Admission: Justification of Admission Dx: N/A ABHISHEK DANIELSON MD Jun 15, 2020 08:31
--- NOTE | 2020-06-15 08:42 | PDOC ---
Infectious Disease Note Subjective Subjective pt is c/o abd pain and diarrhea, somewhat better ROS ROS no n/v/ fever Vital Sign Vital Signs Vital Signs Date Time Temp Pulse Resp B/P (MAP) Pulse Ox O2 Delivery O2 Flow Rate FiO2 06/15/20 07:55 Nasal Cannula 2.0 06/15/20 07:00 98.4 75 18 160/78 (105) 97 98.4 Physical Exam PHYSICAL EXAM GENERAL: Alert, but orientation unable to executive search consultant, 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 VITAL SIGNS: Stable. HEENT: Both pupils are round and reacting. No conjunctival lesion, no lesion in the mouth. NECK: Supple, no JVP, no lymphadenopathy. LUNGS: Clear. HEART: S1, S2 regular. ABDOMEN: Diffusely tender, no rebound or guarding. No organomegaly. Abdomen is not distended either. EXTREMITIES: No edema or cyanosis. SKIN: Rest of skin exam is unremarkable. NEUROLOGIC: The patient is alert, awake, smiles, but unable to executive search consultant her orientation because of very poor hearing. Labs Lab Laboratory Tests Test 06/14/20 10:24 06/14/20 11:41 06/14/20 17:35 06/14/20 20:36 White Blood Count 7.3 x10^3/uL (4.0-11.0) Red Blood Count 3.87 x10^6/uL (3.50-5.40) Hemoglobin 11.9 g/dL (12.0-15.5) Hematocrit 35.5 % (36.0-47.0) Mean Corpuscular Volume 92 fL (79-100) Mean Corpuscular Hemoglobin 31 pg (25-35) Mean Corpuscular Hemoglobin Concent 34 g/dL (31-37) Red Cell Distribution Width 14.5 % (11.5-14.5) Platelet Count 171 x10^3/uL (140-400) Neutrophils (%) (Auto) 65 % (31-73) Lymphocytes (%) (Auto) 22 % (24-48) Monocytes (%) (Auto) 12 % (0-9) Eosinophils (%) (Auto) 1 % (0-3) Basophils (%) (Auto) 1 % (0-3) Neutrophils # (Auto) 4.7 x10^3/uL (1.8-7.7) Lymphocytes # (Auto) 1.6 x10^3/uL (1.0-4.8) Monocytes # (Auto) 0.9 x10^3/uL (0.0-1.1) Eosinophils # (Auto) 0.1 x10^3/uL (0.0-0.7) Basophils # (Auto) 0.1 x10^3/uL (0.0-0.2) Segmented Neutrophils % 29 % (35-66) Band Neutrophils % 37 % (0-9) Lymphocytes % 24 % (24-48) Monocytes % 7 % (0-10) Eosinophils % 1 % (0-5) Basophils % 2 % (0-3) Toxic Granulation Mod Platelet Estimate Adequate (ADEQUATE) Polychromasia Slight Sodium Level 144 mmol/L (136-145) Potassium Level 4.3 mmol/L (3.5-5.1) Chloride Level 112 mmol/L (98-107) Carbon Dioxide Level 25 mmol/L (21-32) Anion Gap 7 (6-14) Blood Urea Nitrogen 21 mg/dL (7-20) Creatinine 1.2 mg/dL (0.6-1.0) Estimated GFR (Cockcroft-Gault) 44.4 BUN/Creatinine Ratio 18 (6-20) Glucose Level 99 mg/dL (70-99) Calcium Level 7.8 mg/dL (8.5-10.1) Total Bilirubin 0.5 mg/dL (0.2-1.0) Aspartate Amino Transf (AST/SGOT) 29 U/L (15-37) Alanine Aminotransferase (ALT/SGPT) 12 U/L (14-59) Alkaline Phosphatase 61 U/L (46-116) Total Protein 6.2 g/dL (6.4-8.2) Albumin 2.1 g/dL (3.4-5.0) Albumin/Globulin Ratio 0.5 (1.0-1.7) Glucose (Fingerstick) 89 mg/dL (70-99) 115 mg/dL (70-99) 125 mg/dL (70-99) Test 06/15/20 08:00 Glucose (Fingerstick) 100 mg/dL (70-99) Micro 06/12/20 Antimicrobic Susceptibility - Final, Complete 06/12/20 Blood Culture - Preliminary, Resulted NO GROWTH AFTER 1 DAY Objective Assessment IMPRESSION: 1. Severe diarrhea and CT of the abdomen and pelvis showing colitis, c diff + 2. Fever. 3. Acute kidney injury. 4. Obesity. 5. Diabetes. 6. Hypertension. 7. Chronic obstructive pulmonary disease. Plan Plan of Care urine culture + but likely contaminated with stool, no urinary symptoms cont po vanc supportive care GRIS MARTIN MD Jun 15, 2020 08:42
[2020-06-15] MEDS: NYSTATIN TOPICAL POWDER 15GM BOTTLE. TP SCH ×3 (09:34→21:19)
[2020-06-15] MEDS: VANCOMYCIN 125 MG/2.5 ML ORAL SOLUTION. PO SCH ×4 (09:34→21:06)
[2020-06-15] MEDS: LACTOBACILLUS RHAMNOSUS GG 1 CAPSULE. PO SCH ×2 (09:34→21:08)
--- NOTE | 2020-06-15 09:57 | NUR ---
SW following. Discussed with RN, pt from home with daughter, 2L (does not use at home), clear liquid diet. Pt has [facility]BS through [facility]. SW will continue to follow.
--- NOTE | 2020-06-15 10:26 | PDOC ---
Date of Service: DATE: 06/15/20 TIME: 10:22 Subjective: Subjective: Indicates she felt bad after eating regular food. Still has some abdominal discomfort. Objective: Objective: D/w nurse - nausea after second regular tray - back to clears. Vital Signs: Vital Signs Date Time Temp Pulse Resp B/P (MAP) Pulse Ox O2 Delivery O2 Flow Rate FiO2 06/15/20 07:55 Nasal Cannula 2.0 06/15/20 07:00 98.4 75 18 160/78 (105) 97 98.4 Labs: Laboratory Tests Test 06/14/20 11:41 06/14/20 17:35 06/14/20 20:36 06/15/20 08:00 Glucose (Fingerstick) 89 mg/dL 115 mg/dL 125 mg/dL 100 mg/dL URINE CULTURE Final Final GREATER THAN 100,000 CFU/ML GRAM NEGATIVE RODS on 06/14/20 at 0957 FINAL ID= [ENTEROBACTER CLOACAE COMPLEX] PE: GEN: NAD LUNGS: CTAB HEART: RRR ABD: winces w/ palpation per usual, soft, rectal tube w/ dark liquid stool NEURO/PSYCH: A & O 3, [place] A/P: 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 Justicifation of Admission Dx: Justifications for Admission: Justification of Admission Dx: N/A GIFTY PARKINSON Jun 15, 2020 10:26
[2020-06-15 10:49] VITALS: BP 171/85
[2020-06-15] MEDS: ONDANSETRON PF 4 MG/2 ML VIAL. IVP PRN (11:22)
[2020-06-15] MEDS: AMINO AC 3%/ELECTROLYTE/GLYCER 1,000 ML IV SCH (12:58)
[2020-06-15 14:42] VITALS: BP 187/91
[2020-06-15] MEDS ORDERED: DOCUSATE SODIUM 100 MG CAPSULE. PO PRN (15:15)
--- NOTE | 2020-06-15 15:42 | NUR ---
Notified Dr. Mcfadden of patients elevated blood pressure, home medications were resumed including lisinopril.
[2020-06-15] MEDS: IPRATRPIUM/ALBUTEROL 0.5/2.5MG 3 ML NEBU. NEB SCH ×2 (16:00→20:31)
[2020-06-15] MEDS: LISINOPRIL 20 MG TABLET PO SCH (16:24)
[2020-06-15] MEDS: OXYBUTYNIN CHLORIDE 5 MG TABLET PO SCH ×2 (16:24→21:06)
[2020-06-15] MEDS: ONDANSETRON ODT 4 MG TAB.RAPDIS. PO PRN ×2 (16:26→21:06)
[2020-06-15] MEDS: INSULIN LISPRO 300 UNITS/3 ML VIAL. SQ SCH (16:58)
[2020-06-15] MEDS ORDERED: NON FORMULARY ITEM (Ipratropium/Albuterol Sulfate (Combivent Respimat Inhal) 2 INH) IH SCH (17:00)
[2020-06-15] MEDS ORDERED: INSULIN LISPRO 100 UNIT/ML 3ML VIAL for OP,RR ONLY. SQ SCH (17:00)
[2020-06-15 19:45] VITALS: BP 191/81
[2020-06-15] MEDS ORDERED: ELUXADOLINE 75 MG PO SCH (21:00)
[2020-06-15] MEDS ORDERED: LACTOBACILLUS RHAMNOSUS GG 1 CAPSULE. PO SCH (21:00)
[2020-06-15] MEDS: traZODone 50 MG TABLET. PO SCH (21:06)
[2020-06-15] MEDS: TAMSULOSIN 0.4 MG CAP.ER.24H. PO SCH (21:06)
[2020-06-15] MEDS: ACETAMINOPHEN 325 MG TABLET. PO PRN (21:06)
[2020-06-15] MEDS: PSYLLIUM HUSK (SUGAR FREE) 1 PKT PACKET PO SCH (21:08)
[2020-06-15] MEDS: LABETALOL 20 MG/4 ML DISP.SYRIN. IVP PRN (21:09)
[2020-06-15 23:32] VITALS: BP 159/90
[2020-06-16] MEDS: AMINO AC 3%/ELECTROLYTE/GLYCER 1,000 ML IV SCH ×2 (00:57→13:30)
[2020-06-16 03:05] VITALS: BP 156/77
[2020-06-16] MEDS: ONDANSETRON ODT 4 MG TAB.RAPDIS. PO PRN ×3 (05:05→20:44)
[2020-06-16] MEDS: MORPHINE SULFATE 2 MG/ML VIAL. IV PRN ×3 (05:06→20:45)
[2020-06-16 07:00] VITALS: BP 136/59
[2020-06-16] MEDS: IPRATRPIUM/ALBUTEROL 0.5/2.5MG 3 ML NEBU. NEB SCH ×4 (07:13→20:00)
[2020-06-16] MEDS: INSULIN LISPRO 300 UNITS/3 ML VIAL. SQ SCH ×3 (08:00→17:04)
[2020-06-16] MEDS: VANCOMYCIN 125 MG/2.5 ML ORAL SOLUTION. PO SCH ×4 (08:54→20:52)
[2020-06-16] MEDS: LACTOBACILLUS RHAMNOSUS GG 1 CAPSULE. PO SCH ×2 (08:54→20:44)
[2020-06-16] MEDS: LISINOPRIL 20 MG TABLET PO SCH (08:54)
[2020-06-16] MEDS: CITALOPRAM 20 MG TABLET. PO SCH (08:54)
[2020-06-16] MEDS: OXYBUTYNIN CHLORIDE 5 MG TABLET PO SCH ×3 (08:54→20:44)
[2020-06-16] MEDS: NYSTATIN TOPICAL POWDER 15GM BOTTLE. TP SCH ×3 (08:57→20:51)
[2020-06-16 11:00] VITALS: BP 147/68
--- NOTE | 2020-06-16 11:34 | PDOC ---
[facility] PROGRESS NOTE Date of Service DOS: DATE: 06/16/20 TIME: 11:32 Chief Complaint Chief Complaint pseudomembranous colitis History of Present Illness History of Present Illness 06/15/2020 - pt seen and evaluated at bedside - pt is pleasantly confused - on 2 L of O2 NC - pt currently taking vancomycin and zosyn - continue to monitor rectal bag cont po vanc supportive care 06/16/20 - pt seen and evaluated at bedside - on 2 L of O2 NC - pt currently taking vancomycin and zosyn - continue to monitor rectal bag - cont po vanco - supportive care - dw RN - chart reviewed Vitals/I&O Vitals/I&O: Vital Signs Date Time Temp Pulse Resp B/P (MAP) Pulse Ox O2 Delivery O2 Flow Rate FiO2 06/16/20 08:55 Nasal Cannula 2.0 06/16/20 08:54 79 136/59 06/16/20 07:13 97 06/16/20 07:00 98.5 16 98.5 I & O 06/15/20 06/15/20 06/16/20 15:00 23:00 07:00 Intake Total 1400 ml 200 ml 1060 ml Output Total 1000 ml 200 ml Balance 1400 ml -800 ml 860 ml Physical Exam Physical Exam: GENERAL: Alert, but orientation unable to planning manager, 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 VITAL SIGNS: Stable. HEENT: Both pupils are round and reacting. No conjunctival lesion, no lesion in the mouth. NECK: Supple, no JVP, no lymphadenopathy. LUNGS: Clear. HEART: S1, S2 regular. ABDOMEN: Diffusely tender, no rebound or guarding. No organomegaly. Abdomen is not distended either. EXTREMITIES: No edema or cyanosis. SKIN: Rest of skin exam is unremarkable. NEUROLOGIC: The patient is alert, awake, smiles, but unable to planning manager her orientation because of very poor hearing. General: Alert, Cooperative, No acute distress Heart: Regular rate, No murmurs Lungs: Clear, Wheezing Abdomen: Soft, No masses Extremities: No clubbing, No cyanosis Skin: No rashes, No significant lesion Labs Labs: Laboratory Tests Test 06/15/20 11:54 06/15/20 16:35 06/15/20 20:52 06/16/20 07:42 Glucose (Fingerstick) 116 mg/dL (70-99) 123 mg/dL (70-99) 149 mg/dL (70-99) 117 mg/dL (70-99) Test 06/16/20 11:20 Glucose (Fingerstick) 114 mg/dL (70-99) Review of Systems Review of Systems: pt denies OLIVER and pt denies change in vision Assessment and Plan Assessmemt and Plan Problems Medical Problems: (1) Pseudomembranous colitis Status: Acute Assessment - C diff Plan - continue PO Vanco - continue to monitor stool - trend labs - appreciate subspecialists input - continue fluids prn Comment Review of Relevant I have reviewed the following items marcio (where applicable) has been applied. Medications: Current Medications Medications (Trade) Dose Ordered Sig/Haim Route PRN Reason Start Time Stop Time Status Last Admin Dose Admin Acetaminophen (Tylenol) 650 mg PRN Q4HRS PRN PO TEMP OVER 100.4F 06/15/20 15:15 06/15/20 21:06 Citalopram Hydrobromide (CeleXA) 20 mg DAILY PO 06/16/20 09:00 06/16/20 08:54 Lisinopril (Prinivil) 20 mg DAILY PO 06/15/20 16:00 06/16/20 08:54 Psyllium Hydrophilic Mucilloid (Metamucil Fiber Packet) 1 pkt QHS PO 06/15/20 21:00 06/15/20 21:08 Tamsulosin HCl (Flomax) 0.4 mg HS PO 06/15/20 21:00 06/15/20 21:06 Trazodone HCl (Desyrel) 50 mg QHS PO 06/15/20 21:00 06/15/20 21:06 Ondansetron HCl (Zofran Odt) 4 mg PRN Q4HRS PRN PO NAUSEA/VOMITING 06/15/20 16:00 06/16/20 05:05 Oxybutynin Chloride (Ditropan) 5 mg TID PO 06/15/20 16:00 06/16/20 08:54 Albuterol/ Ipratropium (Duoneb) 3 ml RTQID NEB 06/15/20 16:00 06/16/20 07:13 Labetalol HCl (Normodyne Iv Push) 10 mg PRN Q3HRS PRN IVP HYPERTENSION 1/29/21 20:00 06/15/20 21:09 Justifications for Admission Other Justification diarrhea and UTI MICHELLE WRAY III DO Jun 16, 2020 11:34
[2020-06-16 12:31] LABS: ALBUMIN 1.9 g/dL (3.4-5.0); CREATININE 0.8 mg/dL (0.6-1.0); GFR 70.9; PHOSPHORUS 1.6 mg/dL (2.6-4.7); POTASSIUM 3.5 mmol/L (3.5-5.1)
[2020-06-16 15:00] VITALS: BP 216/106
[2020-06-16] MEDS: LABETALOL 20 MG/4 ML DISP.SYRIN. IVP PRN ×2 (15:30→20:45)
[2020-06-16 19:00] VITALS: BP 191/93
[2020-06-16] MEDS: TAMSULOSIN 0.4 MG CAP.ER.24H. PO SCH (20:44)
[2020-06-16] MEDS: PSYLLIUM HUSK (SUGAR FREE) 1 PKT PACKET PO SCH (20:44)
[2020-06-16] MEDS: traZODone 50 MG TABLET. PO SCH (20:44)
[2020-06-16] MEDS: ACETAMINOPHEN 325 MG TABLET. PO PRN (20:44)
[2020-06-16 23:00] VITALS: BP 131/71
[2020-06-17] MEDS: ONDANSETRON ODT 4 MG TAB.RAPDIS. PO PRN ×3 (01:41→18:48)
[2020-06-17] MEDS: MORPHINE SULFATE 2 MG/ML VIAL. IV PRN ×3 (01:41→21:55)
[2020-06-17] MEDS: AMINO AC 3%/ELECTROLYTE/GLYCER 1,000 ML IV SCH ×2 (01:42→14:30)
[2020-06-17 03:00] VITALS: BP 152/73
[2020-06-17 07:00] VITALS: BP 190/84
[2020-06-17] MEDS: IPRATRPIUM/ALBUTEROL 0.5/2.5MG 3 ML NEBU. NEB SCH ×4 (07:15→19:15)
[2020-06-17] MEDS: INSULIN LISPRO 300 UNITS/3 ML VIAL. SQ SCH ×3 (07:46→16:30)
[2020-06-17] MEDS: OXYBUTYNIN CHLORIDE 5 MG TABLET PO SCH ×3 (08:08→21:15)
[2020-06-17] MEDS: LACTOBACILLUS RHAMNOSUS GG 1 CAPSULE. PO SCH ×2 (08:08→21:15)
[2020-06-17] MEDS: CITALOPRAM 20 MG TABLET. PO SCH (08:09)
[2020-06-17] MEDS: LISINOPRIL 20 MG TABLET PO SCH (08:09)
[2020-06-17] MEDS: VANCOMYCIN 125 MG/2.5 ML ORAL SOLUTION. PO SCH ×4 (08:09→21:15)
[2020-06-17] MEDS: NYSTATIN TOPICAL POWDER 15GM BOTTLE. TP SCH ×2 (08:10→21:21)
[2020-06-17 11:00] VITALS: BP 173/94
--- NOTE | 2020-06-17 11:58 | PDOC ---
[facility] PROGRESS NOTE Date of Service DOS: DATE: 06/17/20 TIME: 11:54 Chief Complaint Chief Complaint pseudomembranous colitis Recent C diff, COPD, diabetes, GERD, hypertension, MRSA, hyperkalemia, hard of hearing, appendectomy, C. diff, cholecystectomy, colectomy, tonsillectomy, right [id number] amputation, hernia repair. History of Present Illness History of Present Illness 06/15/2020 - pt seen and evaluated at bedside - pt is pleasantly confused - on 2 L of O2 NC - pt currently taking vancomycin and zosyn - continue to monitor rectal bag cont po vanc supportive care 06/16/20 - pt seen and evaluated at bedside - on 2 L of O2 NC - pt currently taking vancomycin and zosyn - continue to monitor rectal bag - cont po vanco - supportive care - dw RN - chart reviewed 06/17/2020 -Patient seen and examined at bedside -Urine culture shows enterobacter cloacae, but when reviewing charts, ID suspects contaminant in stool -Dw RN -Chart reviewed Vitals/I&O Vitals/I&O: Vital Signs Date Time Temp Pulse Resp B/P (MAP) Pulse Ox O2 Delivery O2 Flow Rate FiO2 06/17/20 11:00 98.6 87 18 173/94 (120) 98 Room Air 98.6 06/17/20 08:47 2.0 I & O 06/16/20 06/16/20 06/17/20 15:00 23:00 07:00 Intake Total 360 ml 1000 ml Output Total 750 ml 750 ml 900 ml Balance -390 ml -750 ml 100 ml Physical Exam Physical Exam: GENERAL: Alert, but orientation unable to card maker, 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 VITAL SIGNS: Stable. HEENT: Both pupils are round and reacting. No conjunctival lesion, no lesion in the mouth. NECK: Supple, no JVP, no lymphadenopathy. LUNGS: Clear. HEART: S1, S2 regular. ABDOMEN: Diffusely tender, no rebound or guarding. No organomegaly. Abdomen is not distended either. EXTREMITIES: No edema or cyanosis. SKIN: Rest of skin exam is unremarkable. NEUROLOGIC: The patient is alert, awake, smiles, but unable to card maker her orientation because of very poor hearing. General: Alert, Cooperative, No acute distress Heart: Regular rate, No murmurs Lungs: Clear, Wheezing Abdomen: Soft, No masses Extremities: No clubbing, No cyanosis Skin: No rashes, No significant lesion Labs Labs: Laboratory Tests Test 06/16/20 16:40 06/16/20 20:36 06/17/20 07:31 06/17/20 11:49 Glucose (Fingerstick) 166 mg/dL (70-99) 136 mg/dL (70-99) 123 mg/dL (70-99) 115 mg/dL (70-99) Review of Systems Review of Systems: Denies fever. Denies SOB. Assessment and Plan Assessmemt and Plan Problems Medical Problems: (1) Pseudomembranous colitis Status: Acute Pseudomembranous colitis Recent C diff, COPD, diabetes, GERD, hypertension, MRSA, hyperkalemia, hard of hearing, appendectomy, C. diff, cholecystectomy, colectomy, tonsillectomy, right [id number] amputation, hernia repair. Plan 1 Continue PO vancomycin 2 PPN 3 Trend labs 4 Home meds 5 Full code 6 DVT prophylaxis 7 Appreciate subspecialist input Comment Review of Relevant I have reviewed the following items marcio (where applicable) has been applied. Justifications for Admission Other Justification diarrhea and UTI MICHELLE WRAY III DO Jun 17, 2020 11:57
[2020-06-17 15:00] VITALS: BP 171/74
[2020-06-17 19:00] VITALS: BP 181/82
[2020-06-17] MEDS: LABETALOL 20 MG/4 ML DISP.SYRIN. IVP PRN (20:13)
[2020-06-17] MEDS: traZODone 50 MG TABLET. PO SCH (21:15)
[2020-06-17] MEDS: PSYLLIUM HUSK (SUGAR FREE) 1 PKT PACKET PO SCH (21:15)
[2020-06-17] MEDS: TAMSULOSIN 0.4 MG CAP.ER.24H. PO SCH (21:15)
[2020-06-17 23:00] VITALS: BP 149/76
[2020-06-17] MEDS: ONDANSETRON PF 4 MG/2 ML VIAL. IVP PRN (23:52)
[2020-06-18] MEDS: MORPHINE SULFATE 2 MG/ML VIAL. IV PRN ×2 (01:48→05:57)
[2020-06-18] MEDS: LABETALOL 20 MG/4 ML DISP.SYRIN. IVP PRN (02:50)
[2020-06-18 03:00] VITALS: BP 186/94
[2020-06-18] MEDS: AMINO AC 3%/ELECTROLYTE/GLYCER 1,000 ML IV SCH ×2 (03:00→15:30)
[2020-06-18] MEDS: ONDANSETRON PF 4 MG/2 ML VIAL. IVP PRN ×2 (05:57→20:46)
[2020-06-18 07:00] VITALS: BP 158/76
[2020-06-18 07:39] LABS: BASO % 0 % (0-3); EOS # 0.3 x10^3/uL (0.0-0.7); EOS % 2 % (0-3); HEMATOCRIT 35.9 % (36.0-47.0); LYMPH # 2.3 x10^3/uL (1.0-4.8); LYMPH % 20 % (24-48); MEAN CORPUSCULAR HEMOGLOBIN 30 pg (25-35); MEAN CORPUSCULAR HGB CONC 33 g/dL (31-37); MEAN CORPUSCULAR VOLUME 89 fL (79-100); MONO # 1.1 x10^3/uL (0.0-1.1); MONO % 10 % (0-9); NEUT % 68 % (31-73); PLATELET COUNT 196 x10^3/uL (140-400); RED BLOOD COUNT 4.04 x10^6/uL (3.50-5.40); RED CELL DISTRIBUTION WIDTH 13.8 % (11.5-14.5); WHITE BLOOD COUNT 11.7 x10^3/uL (4.0-11.0)
[2020-06-18] MEDS: INSULIN LISPRO 300 UNITS/3 ML VIAL. SQ SCH ×3 (08:00→17:00)
[2020-06-18 08:01] LABS: CALCIUM 8.2 mg/dL (8.5-10.1); CREATININE 0.7 mg/dL (0.6-1.0); GFR 82.7; POTASSIUM 3.7 mmol/L (3.5-5.1)
[2020-06-18] MEDS: IPRATRPIUM/ALBUTEROL 0.5/2.5MG 3 ML NEBU. NEB SCH ×4 (08:45→20:23)
--- NOTE | 2020-06-18 09:51 | PDOC ---
Infectious Disease Note Subjective Subjective pt is c/o abd pain and diarrhea, somewhat better ROS ROS No nausea vomiting or fever Vital Sign Vital Signs Vital Signs Date Time Temp Pulse Resp B/P (MAP) Pulse Ox O2 Delivery O2 Flow Rate FiO2 06/18/20 08:45 98 Nasal Cannula 2.0 06/18/20 07:00 98.0 81 18 158/76 (103) 98.0 Physical Exam PHYSICAL EXAM GENERAL: Alert, but orientation unable to clinical rehab liaison, 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 VITAL SIGNS: Stable. HEENT: Both pupils are round and reacting. No conjunctival lesion, no lesion in the mouth. NECK: Supple, no JVP, no lymphadenopathy. LUNGS: Clear. HEART: S1, S2 regular. ABDOMEN: Diffusely tender, no rebound or guarding. No organomegaly. Abdomen is not distended either. EXTREMITIES: No edema or cyanosis. SKIN: Rest of skin exam is unremarkable. NEUROLOGIC: The patient is alert, awake, smiles, but unable to clinical rehab liaison her orientation because of very poor hearing. Labs Lab Laboratory Tests Test 06/17/20 11:49 06/17/20 16:16 06/17/20 20:24 06/18/20 06:50 Glucose (Fingerstick) 115 mg/dL (70-99) 115 mg/dL (70-99) 129 mg/dL (70-99) White Blood Count 11.7 x10^3/uL (4.0-11.0) Red Blood Count 4.04 x10^6/uL (3.50-5.40) Hemoglobin 12.0 g/dL (12.0-15.5) Hematocrit 35.9 % (36.0-47.0) Mean Corpuscular Volume 89 fL (79-100) Mean Corpuscular Hemoglobin 30 pg (25-35) Mean Corpuscular Hemoglobin Concent 33 g/dL (31-37) Red Cell Distribution Width 13.8 % (11.5-14.5) Platelet Count 196 x10^3/uL (140-400) Neutrophils (%) (Auto) 68 % (31-73) Lymphocytes (%) (Auto) 20 % (24-48) Monocytes (%) (Auto) 10 % (0-9) Eosinophils (%) (Auto) 2 % (0-3) Basophils (%) (Auto) 0 % (0-3) Neutrophils # (Auto) 8.0 x10^3/uL (1.8-7.7) Lymphocytes # (Auto) 2.3 x10^3/uL (1.0-4.8) Monocytes # (Auto) 1.1 x10^3/uL (0.0-1.1) Eosinophils # (Auto) 0.3 x10^3/uL (0.0-0.7) Basophils # (Auto) 0.0 x10^3/uL (0.0-0.2) Sodium Level 136 mmol/L (136-145) Potassium Level 3.7 mmol/L (3.5-5.1) Chloride Level 100 mmol/L (98-107) Carbon Dioxide Level 31 mmol/L (21-32) Anion Gap 5 (6-14) Blood Urea Nitrogen 10 mg/dL (7-20) Creatinine 0.7 mg/dL (0.6-1.0) Estimated GFR (Cockcroft-Gault) 82.7 Glucose Level 110 mg/dL (70-99) Calcium Level 8.2 mg/dL (8.5-10.1) Test 06/18/20 07:28 Glucose (Fingerstick) 110 mg/dL (70-99) Micro 06/12/20 Antimicrobic Susceptibility - Final, Complete 06/12/20 Blood Culture - Preliminary, Resulted NO GROWTH AFTER 1 DAY Objective Assessment IMPRESSION: 1. Severe diarrhea and CT of the abdomen and pelvis showing colitis, c diff + 2. Fever. 3. Acute kidney injury. 4. Obesity. 5. Diabetes. 6. Hypertension. 7. Chronic obstructive pulmonary disease. Plan Plan of Care urine culture + but likely contaminated with stool, no urinary symptoms cont po vanc supportive care Start cholestyramine GRIS MARTIN MD Jun 18, 2020 09:51
[2020-06-18] MEDS: VANCOMYCIN 125 MG/2.5 ML ORAL SOLUTION. PO SCH ×4 (09:57→20:47)
[2020-06-18] MEDS: CITALOPRAM 20 MG TABLET. PO SCH (09:58)
[2020-06-18] MEDS: LISINOPRIL 20 MG TABLET PO SCH (09:58)
[2020-06-18] MEDS: OXYBUTYNIN CHLORIDE 5 MG TABLET PO SCH ×3 (09:58→20:47)
[2020-06-18] MEDS: LACTOBACILLUS RHAMNOSUS GG 1 CAPSULE. PO SCH ×2 (09:58→20:47)
[2020-06-18] MEDS: NYSTATIN TOPICAL POWDER 15GM BOTTLE. TP SCH ×2 (10:00→21:44)
--- NOTE | 2020-06-18 10:12 | NUR ---
SW following. Discussed with RN, pt from home with daughter, 2L. Pt has home services through [facility]. Pt will need a 6 minute walk prior to discharge. PT/OT being ordered. SW will continue to follow.
[2020-06-18 10:32] LABS: % ATYL 1 % (0-0); % EOS 6 % (0-5); % LYMPHS 18 % (24-48); % MONOS 6 % (0-10); % SEGS 69 % (35-66)
[2020-06-18 10:34] LABS: PLT ESTIMATE ADEQUATE (ADEQUATE)
--- NOTE | 2020-06-18 10:43 | PDOC ---
Date of Service: DATE: 06/18/20 TIME: 10:39 Objective: Objective: Reviewed chart. GI soft diet ordered. Vital Signs: Vital Signs Date Time Temp Pulse Resp B/P (MAP) Pulse Ox O2 Delivery O2 Flow Rate FiO2 06/18/20 09:58 81 158/76 06/18/20 08:45 98 Nasal Cannula 2.0 06/18/20 07:00 98.0 18 98.0 Labs: Laboratory Tests Test 06/17/20 11:49 06/17/20 16:16 06/17/20 20:24 06/18/20 06:50 Glucose (Fingerstick) 115 mg/dL 115 mg/dL 129 mg/dL White Blood Count 11.7 x10^3/uL Red Blood Count 4.04 x10^6/uL Hemoglobin 12.0 g/dL Hematocrit 35.9 % Mean Corpuscular Volume 89 fL Mean Corpuscular Hemoglobin 30 pg Mean Corpuscular Hemoglobin Concent 33 g/dL Red Cell Distribution Width 13.8 % Platelet Count 196 x10^3/uL Neutrophils (%) (Auto) 68 % Lymphocytes (%) (Auto) 20 % Monocytes (%) (Auto) 10 % Eosinophils (%) (Auto) 2 % Basophils (%) (Auto) 0 % Neutrophils # (Auto) 8.0 x10^3/uL Lymphocytes # (Auto) 2.3 x10^3/uL Monocytes # (Auto) 1.1 x10^3/uL Eosinophils # (Auto) 0.3 x10^3/uL Basophils # (Auto) 0.0 x10^3/uL Segmented Neutrophils % 69 % Lymphocytes % 18 % Atypical Lymphocytes % (Manual) 1 % Monocytes % 6 % Eosinophils % 6 % Platelet Estimate Adequate Large Platelets Few Sodium Level 136 mmol/L Potassium Level 3.7 mmol/L Chloride Level 100 mmol/L Carbon Dioxide Level 31 mmol/L Anion Gap 5 Blood Urea Nitrogen 10 mg/dL Creatinine 0.7 mg/dL Estimated GFR (Cockcroft-Gault) 82.7 Glucose Level 110 mg/dL Calcium Level 8.2 mg/dL Test 06/18/20 07:28 Glucose (Fingerstick) 110 mg/dL PE: GEN: NAD LUNGS: NC 2L HEART: RRR ABD: non-distended, rectal tube w/ dark watery stool NEURO/PSYCH: sleeping - not awakened A/P: Recurrent C Diff - on vanco per ID Chronic abdominal pain Very [place] -- Note orders for Questran. Continue vanco, support. Justicifation of Admission Dx: Justifications for Admission: Justification of Admission Dx: N/A GIFTY PARKINSON Jun 18, 2020 10:43
[2020-06-18 11:00] VITALS: BP 174/76
--- NOTE | 2020-06-18 11:28 | PDOC ---
[facility] PROGRESS NOTE Date of Service DOS: DATE: 06/18/20 TIME: 11:24 Chief Complaint Chief Complaint pseudomembranous colitis Recent C diff, COPD, diabetes, GERD, hypertension, MRSA, hyperkalemia, hard of hearing, appendectomy, C. diff, cholecystectomy, colectomy, tonsillectomy, right [id number] amputation, hernia repair. History of Present Illness History of Present Illness 06/15/2020 - pt seen and evaluated at bedside - pt is pleasantly confused - on 2 L of O2 NC - pt currently taking vancomycin and zosyn - continue to monitor rectal bag cont po vanc supportive care 06/16/20 - pt seen and evaluated at bedside - on 2 L of O2 NC - pt currently taking vancomycin and zosyn - continue to monitor rectal bag - cont po vanco - supportive care - dw RN - chart reviewed 06/17/2020 -Patient seen and examined at bedside -Urine culture shows enterobacter cloacae, but when reviewing charts, ID suspects contaminant in stool -Dw RN -Chart reviewed 06/18: Patient seen and evaluated bedside. Afebrile. Still with some complaints of epigastric abdominal pain. Urine culture felt to be contaminant. Continue with p.o. vancomycin. Charts and labs reviewed. 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 VITAL SIGNS: Stable. HEENT: Both pupils are round and reacting. No conjunctival lesion, no lesion in the mouth. NECK: Supple, no JVP, no lymphadenopathy. LUNGS: Clear. HEART: S1, S2 regular. ABDOMEN: Diffusely tender, no rebound or guarding. No organomegaly. Abdomen is not distended either. EXTREMITIES: No edema or cyanosis. SKIN: Rest of skin exam is unremarkable. NEUROLOGIC: The patient is alert, awake, smiles, but unable to floor refinisher her orientation because of very poor hearing. General: Alert, Cooperative, No acute distress Heart: Regular rate, No murmurs Lungs: Clear, Wheezing Abdomen: Soft, No masses Extremities: No clubbing, No cyanosis Skin: No rashes, No significant lesion Labs Labs: Laboratory Tests Test 06/17/20 11:49 06/17/20 16:16 06/17/20 20:24 06/18/20 06:50 Glucose (Fingerstick) 115 mg/dL (70-99) 115 mg/dL (70-99) 129 mg/dL (70-99) White Blood Count 11.7 x10^3/uL (4.0-11.0) Red Blood Count 4.04 x10^6/uL (3.50-5.40) Hemoglobin 12.0 g/dL (12.0-15.5) Hematocrit 35.9 % (36.0-47.0) Mean Corpuscular Volume 89 fL (79-100) Mean Corpuscular Hemoglobin 30 pg (25-35) Mean Corpuscular Hemoglobin Concent 33 g/dL (31-37) Red Cell Distribution Width 13.8 % (11.5-14.5) Platelet Count 196 x10^3/uL (140-400) Neutrophils (%) (Auto) 68 % (31-73) Lymphocytes (%) (Auto) 20 % (24-48) Monocytes (%) (Auto) 10 % (0-9) Eosinophils (%) (Auto) 2 % (0-3) Basophils (%) (Auto) 0 % (0-3) Neutrophils # (Auto) 8.0 x10^3/uL (1.8-7.7) Lymphocytes # (Auto) 2.3 x10^3/uL (1.0-4.8) Monocytes # (Auto) 1.1 x10^3/uL (0.0-1.1) Eosinophils # (Auto) 0.3 x10^3/uL (0.0-0.7) Basophils # (Auto) 0.0 x10^3/uL (0.0-0.2) Segmented Neutrophils % 69 % (35-66) Lymphocytes % 18 % (24-48) Atypical Lymphocytes % (Manual) 1 % (0-0) Monocytes % 6 % (0-10) Eosinophils % 6 % (0-5) Platelet Estimate Adequate (ADEQUATE) Large Platelets Few Sodium Level 136 mmol/L (136-145) Potassium Level 3.7 mmol/L (3.5-5.1) Chloride Level 100 mmol/L (98-107) Carbon Dioxide Level 31 mmol/L (21-32) Anion Gap 5 (6-14) Blood Urea Nitrogen 10 mg/dL (7-20) Creatinine 0.7 mg/dL (0.6-1.0) Estimated GFR (Cockcroft-Gault) 82.7 Glucose Level 110 mg/dL (70-99) Calcium Level 8.2 mg/dL (8.5-10.1) Test 06/18/20 07:28 Glucose (Fingerstick) 110 mg/dL (70-99) Assessment and Plan Assessmemt and Plan Problems Medical Problems: (1) Pseudomembranous colitis Status: Acute Comment Review of Relevant I have reviewed the following items marcio (where applicable) has been applied. Justifications for Admission Other Justification diarrhea and UTI HUGH GUTIERREZ MD Jun 18, 2020 11:28
[2020-06-18] MEDS: CHOLESTYRAMINE/ASPARTAME 4 GM PACKET PO SCH ×2 (11:47→21:44)
[2020-06-18] MEDS ORDERED: FAMOTIDINE 20 MG/2 ML VIAL IVP ONE (12:00)
[2020-06-18 15:00] VITALS: BP 160/74
[2020-06-18 19:45] VITALS: BP 145/76
[2020-06-18] MEDS: TAMSULOSIN 0.4 MG CAP.ER.24H. PO SCH (20:47)
[2020-06-18] MEDS: traZODone 50 MG TABLET. PO SCH (20:47)
[2020-06-18 22:45] VITALS: BP 142/76
[2020-06-19 03:25] VITALS: BP 110/61
[2020-06-19] MEDS: ONDANSETRON PF 4 MG/2 ML VIAL. IVP PRN (04:13)
[2020-06-19] MEDS: AMINO AC 3%/ELECTROLYTE/GLYCER 1,000 ML IV SCH (04:13)
[2020-06-19] MEDS: PANTOPRAZOLE 40 MG TABLET.DR. PO SCH (05:40)
[2020-06-19 07:00] VITALS: BP 128/86
[2020-06-19] MEDS: IPRATRPIUM/ALBUTEROL 0.5/2.5MG 3 ML NEBU. NEB SCH ×4 (07:57→20:23)
[2020-06-19] MEDS: INSULIN LISPRO 300 UNITS/3 ML VIAL. SQ SCH ×3 (08:00→17:00)
--- NOTE | 2020-06-19 08:37 | PDOC ---
[facility] PROGRESS NOTE Date of Service DOS: DATE: 06/19/20 TIME: 08:31 Chief Complaint Chief Complaint pseudomembranous colitis Recent C diff, COPD, diabetes, GERD, hypertension, MRSA, hyperkalemia, hard of hearing, appendectomy, C. diff, cholecystectomy, colectomy, tonsillectomy, right [id number] amputation, hernia repair. History of Present Illness History of Present Illness 06/15/2020 - pt seen and evaluated at bedside - pt is pleasantly confused - on 2 L of O2 NC - pt currently taking vancomycin and zosyn - continue to monitor rectal bag cont po vanc supportive care 06/16/20 - pt seen and evaluated at bedside - on 2 L of O2 NC - pt currently taking vancomycin and zosyn - continue to monitor rectal bag - cont po vanco - supportive care - dw RN - chart reviewed 06/17/2020 -Patient seen and examined at bedside -Urine culture shows enterobacter cloacae, but when reviewing charts, ID suspects contaminant in stool -Dw RN -Chart reviewed 06/18: Patient seen and evaluated bedside. Afebrile. Still with some complaints of epigastric abdominal pain. Urine culture felt to be contaminant. Continue with p.o. vancomycin. Charts and labs reviewed. 06/19: Patient seen and evaluated. Still with complaints of abdominal pain, denies further episodes of diarrhea. Afebrile. Tolerating GI soft diet. Continue p.o. Vanco. She has history of COPD, currently on 2 L nasal cannula intermittently. Will obtain ABG prior to discharge to evaluate need for home O2. 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 VITAL SIGNS: Stable. HEENT: Both pupils are round and reacting. No conjunctival lesion, no lesion in the mouth. NECK: Supple, no JVP, no lymphadenopathy. LUNGS: Clear. HEART: S1, S2 regular. ABDOMEN: Diffusely tender, no rebound or guarding. No organomegaly. Abdomen is not distended either. EXTREMITIES: No edema or cyanosis. SKIN: Rest of skin exam is unremarkable. NEUROLOGIC: The patient is alert, awake, smiles, but unable to flatbed company driver her orientation because of very poor hearing. General: Alert, Cooperative, No acute distress Heart: Regular rate, No murmurs Lungs: Clear, Wheezing Abdomen: Soft, No masses Extremities: No clubbing, No cyanosis Skin: No rashes, No significant lesion Labs Labs: Laboratory Tests Test 06/18/20 11:59 06/18/20 16:56 06/18/20 20:49 06/19/20 07:47 Glucose (Fingerstick) 117 mg/dL (70-99) 120 mg/dL (70-99) 144 mg/dL (70-99) 105 mg/dL (70-99) Assessment and Plan Assessmemt and Plan Problems Medical Problems: (1) Pseudomembranous colitis Status: Acute Comment Review of Relevant I have reviewed the following items marcio (where applicable) has been applied. Medications: Current Medications Medications (Trade) Dose Ordered Sig/Haim Route PRN Reason Start Time Stop Time Status Last Admin Dose Admin Cholestyramine Resin (Questran Light) 4 gm BID@1000,2200 PO 06/18/20 10:00 06/18/20 21:44 Pantoprazole Sodium (Protonix) 40 mg DAILYAC PO 06/19/20 07:30 06/19/20 05:40 Famotidine (Pepcid Vial) 20 mg 1X ONCE IVP 06/18/20 12:00 06/18/20 12:01 DC 06/18/20 11:47 Justifications for Admission Other Justification diarrhea and UTI HUGH GUTIERREZ MD Jun 19, 2020 08:37
[2020-06-19 08:43] LABS: BASO # 0.1 x10^3/uL (0.0-0.2); BASO % 0 % (0-3); EOS # 0.5 x10^3/uL (0.0-0.7); EOS % 4 % (0-3); HEMATOCRIT 34.8 % (36.0-47.0); HEMOGLOBIN 11.6 g/dL (12.0-15.5); LYMPH # 2.6 x10^3/uL (1.0-4.8); LYMPH % 20 % (24-48); MEAN CORPUSCULAR HEMOGLOBIN 30 pg (25-35); MEAN CORPUSCULAR HGB CONC 33 g/dL (31-37); MEAN CORPUSCULAR VOLUME 90 fL (79-100); MONO # 1.1 x10^3/uL (0.0-1.1); MONO % 8 % (0-9); NEUT # 8.6 x10^3/uL (1.8-7.7); NEUT % 67 % (31-73); PLATELET COUNT 222 x10^3/uL (140-400); RED BLOOD COUNT 3.87 x10^6/uL (3.50-5.40); RED CELL DISTRIBUTION WIDTH 14.1 % (11.5-14.5); WHITE BLOOD COUNT 12.8 x10^3/uL (4.0-11.0)
--- NOTE | 2020-06-19 08:51 | PDOC ---
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 VITAL SIGNS: Stable. HEENT: Both pupils are round and reacting. No conjunctival lesion, no lesion in the mouth. NECK: Supple, no JVP, no lymphadenopathy. LUNGS: Clear. HEART: S1, S2 regular. ABDOMEN: Diffusely tender, no rebound or guarding. No organomegaly. Abdomen is not distended either. EXTREMITIES: No edema or cyanosis. SKIN: Rest of skin exam is unremarkable. NEUROLOGIC: The patient is alert, awake, smiles, but unable to econometrician her orientation because of very poor hearing. Labs Lab Laboratory Tests Test 06/18/20 11:59 06/18/20 16:56 06/18/20 20:49 06/19/20 07:47 Glucose (Fingerstick) 117 mg/dL (70-99) 120 mg/dL (70-99) 144 mg/dL (70-99) 105 mg/dL (70-99) Micro 06/12/20 Antimicrobic Susceptibility - Final, Complete 06/12/20 Blood Culture - Preliminary, Resulted NO GROWTH AFTER 1 DAY Objective Assessment IMPRESSION: 1. Severe diarrhea and CT of the abdomen and pelvis showing colitis, c diff + 2. Fever. 3. Acute kidney injury. 4. Obesity. 5. Diabetes. 6. Hypertension. 7. Chronic obstructive pulmonary disease. Plan Plan of Care urine culture + but likely contaminated with stool, no urinary symptoms cont po vanc supportive care cholestyramine GRIS MARTIN MD Jun 19, 2020 08:51
[2020-06-19 09:15] LABS: CALCIUM 8.6 mg/dL (8.5-10.1); CREATININE 0.8 mg/dL (0.6-1.0); GFR 70.9; POTASSIUM 3.9 mmol/L (3.5-5.1)
[2020-06-19] MEDS: LACTOBACILLUS RHAMNOSUS GG 1 CAPSULE. PO SCH ×2 (09:45→20:30)
[2020-06-19] MEDS: CITALOPRAM 20 MG TABLET. PO SCH (09:46)
[2020-06-19] MEDS: OXYBUTYNIN CHLORIDE 5 MG TABLET PO SCH ×3 (09:46→20:30)
[2020-06-19] MEDS: LISINOPRIL 20 MG TABLET PO SCH (09:46)
[2020-06-19] MEDS: NYSTATIN TOPICAL POWDER 15GM BOTTLE. TP SCH ×2 (09:46→20:46)
[2020-06-19] MEDS: VANCOMYCIN 125 MG/2.5 ML ORAL SOLUTION. PO SCH ×4 (09:46→20:30)
--- NOTE | 2020-06-19 10:28 | PDOC ---
Date of Service: DATE: 06/19/20 TIME: 10:25 Objective: Objective: D/w staff - usually doesn't eat much in the mornings, eats a little more for lunch, then more at dinner. Reviewed I&Os - not sure how much stool output. Vital Signs: Vital Signs Date Time Temp Pulse Resp B/P (MAP) Pulse Ox O2 Delivery O2 Flow Rate FiO2 06/19/20 09:46 86 128/86 06/19/20 07:57 97 Nasal Cannula 2.0 06/19/20 07:00 98.0 18 98.0 Labs: Laboratory Tests Test 06/18/20 11:59 06/18/20 16:56 06/18/20 20:49 06/19/20 07:47 Glucose (Fingerstick) 117 mg/dL 120 mg/dL 144 mg/dL 105 mg/dL Test 06/19/20 08:00 White Blood Count 12.8 x10^3/uL Red Blood Count 3.87 x10^6/uL Hemoglobin 11.6 g/dL Hematocrit 34.8 % Mean Corpuscular Volume 90 fL Mean Corpuscular Hemoglobin 30 pg Mean Corpuscular Hemoglobin Concent 33 g/dL Red Cell Distribution Width 14.1 % Platelet Count 222 x10^3/uL Neutrophils (%) (Auto) 67 % Lymphocytes (%) (Auto) 20 % Monocytes (%) (Auto) 8 % Eosinophils (%) (Auto) 4 % Basophils (%) (Auto) 0 % Neutrophils # (Auto) 8.6 x10^3/uL Lymphocytes # (Auto) 2.6 x10^3/uL Monocytes # (Auto) 1.1 x10^3/uL Eosinophils # (Auto) 0.5 x10^3/uL Basophils # (Auto) 0.1 x10^3/uL Sodium Level 137 mmol/L Potassium Level 3.9 mmol/L Chloride Level 101 mmol/L Carbon Dioxide Level 28 mmol/L Anion Gap 8 Blood Urea Nitrogen 12 mg/dL Creatinine 0.8 mg/dL Estimated GFR (Cockcroft-Gault) 70.9 Glucose Level 103 mg/dL Calcium Level 8.6 mg/dL BLOOD CULTURE Final NO GROWTH AFTER 5 DAYS PE: GEN: NAD LUNGS: CTAB HEART: RRR ABD: grimaces to palpation per usual, dark liquid stool in rectal tube NEURO/PSYCH: was sleeping, [place] A/P: Recurrent C Diff - on vanco and Questran, ID following Chronic abdominal pain -- Continue support. Justicifation of Admission Dx: Justifications for Admission: Justification of Admission Dx: N/A GIFTY PARKINSON Jun 19, 2020 10:28
[2020-06-19 11:00] VITALS: BP 156/94
--- NOTE | 2020-06-19 12:00 | NUR ---
SS following up with discharge planning. SS reviewed pt chart and discussed with pt RN. Pt is currently requiring oxygen at two liters nasal canula. No home oxygen. Pt on PPN and PO Vancomycin. Pt has [facility] services at home through [facility]. Per PT, pt is at baseline for functional mobility. Discharge plan is to home when medically ready. Probable need for oxygen testing prior to discharge. SS will continue to follow for discharge planning.
--- NOTE | 2020-06-19 14:05 | NUR ---
Wound/Ostomy Care Wound Type/Assessment: Pt seen per wound care follow up. See wound assessment. 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 Wounds are cleansed and assessed. Treatment Recommendations/Plan: Recommendations to continue with Aquacel Ag to right AKA and cover with foam dressing, changing every 2-3 days. Nystatin powder mixed with Calazime cream recommended for intergluteal cleft and reddened areas. Education provided: Pt very hard of hearing, therefore unable to educate, however pt is familiar with us and wound care as she is a previous patient. Offloading surface/device: Pt turned using purple wedge. Recommended Referrals/Tests: N/A Discharge Recommendations for dressings: Continue current treatment as above. Dressing change instructions left in room. No other wounds noted upon complete head to toe assessment. Bed lowered and call light in reach. Wound care will follow up with patient on 06/26/2020 if still inpatient.
[2020-06-19] MEDS: CHOLESTYRAMINE/ASPARTAME 4 GM PACKET PO SCH ×2 (14:38→22:15)
[2020-06-19 15:00] VITALS: BP 148/99
[2020-06-19] MEDS: ONDANSETRON ODT 4 MG TAB.RAPDIS. PO PRN ×2 (18:00→22:45)
[2020-06-19 19:25] VITALS: BP 156/74
[2020-06-19] MEDS: ACETAMINOPHEN 325 MG TABLET. PO PRN (19:35)
[2020-06-19] MEDS: TAMSULOSIN 0.4 MG CAP.ER.24H. PO SCH (20:30)
[2020-06-19] MEDS: traZODone 50 MG TABLET. PO SCH (20:30)
[2020-06-19 21:18] LABS: BASE EXCESS ABG -1 mmol/L (-3-3); HCO3 ABG 23 mmol/L (21-28); PCO2 ABG 35 mmHg (35-46); PO2 ABG 57 mmHg (65-108); SAT O2 ABG 92 % (92-99)
[2020-06-19 21:44] LABS: FIO2 ABG 21
[2020-06-19 22:56] VITALS: BP 147/68
--- NOTE | 2020-06-19 23:20 | NUR ---
Patient triggered positive on sepsis screen. ICU charge loader was paged at [phone], Stat lactic acid and blood cultures x2 ordered. Lactic acid came back 1.2, ICU charge loader was made aware of results. RN will continue to monitor the patient closely.
[2020-06-20 03:25] VITALS: BP 148/70
[2020-06-20 07:00] VITALS: BP 141/66
[2020-06-20] MEDS: PANTOPRAZOLE 40 MG TABLET.DR. PO SCH (07:00)
[2020-06-20 07:25] LABS: BASO % 0 % (0-3); EOS # 0.4 x10^3/uL (0.0-0.7); EOS % 3 % (0-3); HEMATOCRIT 34.9 % (36.0-47.0); HEMOGLOBIN 11.7 g/dL (12.0-15.5); LYMPH # 2.6 x10^3/uL (1.0-4.8); LYMPH % 21 % (24-48); MEAN CORPUSCULAR HEMOGLOBIN 30 pg (25-35); MEAN CORPUSCULAR HGB CONC 34 g/dL (31-37); MEAN CORPUSCULAR VOLUME 90 fL (79-100); MONO # 0.9 x10^3/uL (0.0-1.1); MONO % 7 % (0-9); NEUT # 8.6 x10^3/uL (1.8-7.7); NEUT % 68 % (31-73); PLATELET COUNT 246 x10^3/uL (140-400); RED CELL DISTRIBUTION WIDTH 14.1 % (11.5-14.5); WHITE BLOOD COUNT 12.6 x10^3/uL (4.0-11.0)
[2020-06-20] MEDS: IPRATRPIUM/ALBUTEROL 0.5/2.5MG 3 ML NEBU. NEB SCH ×2 (07:38→11:01)
[2020-06-20 07:42] LABS: CALCIUM 8.6 mg/dL (8.5-10.1); CREATININE 1.1 mg/dL (0.6-1.0); GFR 49.1
[2020-06-20] MEDS: INSULIN LISPRO 300 UNITS/3 ML VIAL. SQ SCH ×3 (07:59→16:41)
[2020-06-20] MEDS: VANCOMYCIN 125 MG/2.5 ML ORAL SOLUTION. PO SCH ×4 (08:23→21:00)
[2020-06-20] MEDS: LACTOBACILLUS RHAMNOSUS GG 1 CAPSULE. PO SCH ×2 (08:23→21:00)
[2020-06-20] MEDS: OXYBUTYNIN CHLORIDE 5 MG TABLET PO SCH ×3 (08:23→21:00)
[2020-06-20] MEDS: CITALOPRAM 20 MG TABLET. PO SCH (08:23)
[2020-06-20] MEDS: LISINOPRIL 20 MG TABLET PO SCH (08:23)
[2020-06-20] MEDS: NYSTATIN TOPICAL POWDER 15GM BOTTLE. TP SCH ×2 (08:24→21:00)
--- NOTE | 2020-06-20 09:24 | NUR ---
SW following. Discussed with RN, pt from with daughter and HCBS services with [facility]. Pt has a fever, is now PUI for COVID and will be transferred to a COVID floor - unsure of which floor at this point. CRISTINA Carlos or MARINA Hoyt to follow.
--- NOTE | 2020-06-20 09:24 | PDOC ---
Date of Service: DATE: 06/20/20 TIME: 09:21 Objective: Objective: Tmax 101.8 D/w nurse - probably won't DC today because fever. Not sure how much stool output. Vital Signs: Vital Signs Date Time Temp Pulse Resp B/P (MAP) Pulse Ox O2 Delivery O2 Flow Rate FiO2 06/20/20 08:23 76 141/66 06/20/20 07:43 Nasal Cannula 2.0 06/20/20 07:39 93 06/20/20 07:00 98.2 16 98.2 Labs: Laboratory Tests Test 06/19/20 11:41 06/19/20 16:56 06/19/20 21:04 06/19/20 21:11 Glucose (Fingerstick) 111 mg/dL 131 mg/dL 131 mg/dL O2 Saturation 92 % Arterial Blood pH 7.44 Arterial Blood pCO2 at Patient Temp 35 mmHg Arterial Blood pO2 at Patient Temp 57 mmHg Arterial Blood HCO3 23 mmol/L Arterial Blood Base Excess -1 mmol/L FiO2 21 Test 06/19/20 21:54 06/20/20 07:10 06/20/20 07:39 Lactic Acid Level 1.2 mmol/L White Blood Count 12.6 x10^3/uL Red Blood Count 3.90 x10^6/uL Hemoglobin 11.7 g/dL Hematocrit 34.9 % Mean Corpuscular Volume 90 fL Mean Corpuscular Hemoglobin 30 pg Mean Corpuscular Hemoglobin Concent 34 g/dL Red Cell Distribution Width 14.1 % Platelet Count 246 x10^3/uL Neutrophils (%) (Auto) 68 % Lymphocytes (%) (Auto) 21 % Monocytes (%) (Auto) 7 % Eosinophils (%) (Auto) 3 % Basophils (%) (Auto) 0 % Neutrophils # (Auto) 8.6 x10^3/uL Lymphocytes # (Auto) 2.6 x10^3/uL Monocytes # (Auto) 0.9 x10^3/uL Eosinophils # (Auto) 0.4 x10^3/uL Basophils # (Auto) 0.0 x10^3/uL Sodium Level 139 mmol/L Potassium Level 4.0 mmol/L Chloride Level 104 mmol/L Carbon Dioxide Level 31 mmol/L Anion Gap 4 Blood Urea Nitrogen 9 mg/dL Creatinine 1.1 mg/dL Estimated GFR (Cockcroft-Gault) 49.1 Glucose Level 101 mg/dL Calcium Level 8.6 mg/dL Glucose (Fingerstick) 108 mg/dL PE: GEN: NAD LUNGS: clear HEART: RRR ABD: soft - apparently non-tender today, rectal tube w/ dark stool NEURO/PSYCH: was sleeping - opened eyes for abdominal exam, didn't speak A/P: Recurrent C Diff - on vanco and Questran, ID following Chronic abdominal pain Fever -- Continue support. Justicifation of Admission Dx: Justifications for Admission: Justification of Admission Dx: N/A GIFTY PARKINSON Jun 20, 2020 09:24 JOSE MOORE MD Jun 20, 2020 15:10
--- NOTE | 2020-06-20 09:24 | NUR ---
Dr. Prabhakar notified of patients fever last night. Received new orders to covid and flu swab patient and transfer to room 663. Addendum: 06/20/20 at 1038 by JEWELS BISHOP RN Report given to JUAN ANTONIO Vickers on . Notified her that covid and flu swabs have not been completed. Notified patients daughter Viky of transfer. Patient transferred via bed to room 663.
--- NOTE | 2020-06-20 09:55 | PDOC ---
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 VITAL SIGNS: Stable. HEENT: Both pupils are round and reacting. No conjunctival lesion, no lesion in the mouth. NECK: Supple, no JVP, no lymphadenopathy. LUNGS: Clear. HEART: S1, S2 regular. ABDOMEN: Diffusely tender, no rebound or guarding. No organomegaly. Abdomen is not distended either. EXTREMITIES: No edema or cyanosis. SKIN: Rest of skin exam is unremarkable. NEUROLOGIC: The patient is alert, awake, smiles, but unable to plug making operator her orientation because of very poor hearing. Labs Lab Laboratory Tests Test 06/19/20 11:41 06/19/20 16:56 06/19/20 21:04 06/19/20 21:11 Glucose (Fingerstick) 111 mg/dL (70-99) 131 mg/dL (70-99) 131 mg/dL (70-99) O2 Saturation 92 % (92-99) Arterial Blood pH 7.44 (7.35-7.45) Arterial Blood pCO2 at Patient Temp 35 mmHg (35-46) Arterial Blood pO2 at Patient Temp 57 mmHg (65-108) Arterial Blood HCO3 23 mmol/L (21-28) Arterial Blood Base Excess -1 mmol/L (-3-3) FiO2 21 Test 06/19/20 21:54 06/20/20 07:10 06/20/20 07:39 Lactic Acid Level 1.2 mmol/L (0.4-2.0) White Blood Count 12.6 x10^3/uL (4.0-11.0) Red Blood Count 3.90 x10^6/uL (3.50-5.40) Hemoglobin 11.7 g/dL (12.0-15.5) Hematocrit 34.9 % (36.0-47.0) Mean Corpuscular Volume 90 fL (79-100) Mean Corpuscular Hemoglobin 30 pg (25-35) Mean Corpuscular Hemoglobin Concent 34 g/dL (31-37) Red Cell Distribution Width 14.1 % (11.5-14.5) Platelet Count 246 x10^3/uL (140-400) Neutrophils (%) (Auto) 68 % (31-73) Lymphocytes (%) (Auto) 21 % (24-48) Monocytes (%) (Auto) 7 % (0-9) Eosinophils (%) (Auto) 3 % (0-3) Basophils (%) (Auto) 0 % (0-3) Neutrophils # (Auto) 8.6 x10^3/uL (1.8-7.7) Lymphocytes # (Auto) 2.6 x10^3/uL (1.0-4.8) Monocytes # (Auto) 0.9 x10^3/uL (0.0-1.1) Eosinophils # (Auto) 0.4 x10^3/uL (0.0-0.7) Basophils # (Auto) 0.0 x10^3/uL (0.0-0.2) Sodium Level 139 mmol/L (136-145) Potassium Level 4.0 mmol/L (3.5-5.1) Chloride Level 104 mmol/L (98-107) Carbon Dioxide Level 31 mmol/L (21-32) Anion Gap 4 (6-14) Blood Urea Nitrogen 9 mg/dL (7-20) Creatinine 1.1 mg/dL (0.6-1.0) Estimated GFR (Cockcroft-Gault) 49.1 Glucose Level 101 mg/dL (70-99) Calcium Level 8.6 mg/dL (8.5-10.1) Glucose (Fingerstick) 108 mg/dL (70-99) Micro 06/12/20 Antimicrobic Susceptibility - Final, Complete 06/12/20 Blood Culture - Preliminary, Resulted NO GROWTH AFTER 1 DAY Objective Assessment IMPRESSION: 1. Severe diarrhea and CT of the abdomen and pelvis showing colitis, c diff + 2. Fever. 3. Acute kidney injury. 4. Obesity. 5. Diabetes. 6. Hypertension. 7. Chronic obstructive pulmonary disease. Plan Plan of Care urine culture + but likely contaminated with stool, no urinary symptoms cont po vanc supportive care cholestyramine covid pending GRIS MARTIN MD Jun 20, 2020 09:55
--- NOTE | 2020-06-20 10:24 | NUR ---
Pt arrived on unit to room 663 at approx 1021 by bed. POC reviewed. Will assume care of this pt.
[2020-06-20 11:42] VITALS: BP 128/65
--- NOTE | 2020-06-20 12:11 | PDOC ---
[facility] PROGRESS NOTE Date of Service DOS: DATE: 06/20/20 TIME: 12:08 Chief Complaint Chief Complaint pseudomembranous colitis Recent C diff, COPD, diabetes, GERD, hypertension, MRSA, hyperkalemia, hard of hearing, appendectomy, C. diff, cholecystectomy, colectomy, tonsillectomy, right [id number] amputation, hernia repair. History of Present Illness History of Present Illness 06/15/2020 - pt seen and evaluated at bedside - pt is pleasantly confused - on 2 L of O2 NC - pt currently taking vancomycin and zosyn - continue to monitor rectal bag cont po vanc supportive care 06/16/20 - pt seen and evaluated at bedside - on 2 L of O2 NC - pt currently taking vancomycin and zosyn - continue to monitor rectal bag - cont po vanco - supportive care - dw RN - chart reviewed 06/17/2020 -Patient seen and examined at bedside -Urine culture shows enterobacter cloacae, but when reviewing charts, ID suspects contaminant in stool -Dw RN -Chart reviewed 06/18: Patient seen and evaluated bedside. Afebrile. Still with some complaints of epigastric abdominal pain. Urine culture felt to be contaminant. Continue with p.o. vancomycin. Charts and labs reviewed. 06/19: Patient seen and evaluated. Still with complaints of abdominal pain, denies further episodes of diarrhea. Afebrile. Tolerating GI soft diet. Continue p.o. Vanco. She has history of COPD, currently on 2 L nasal cannula intermittently. Will obtain ABG prior to discharge to evaluate need for home O2. 06/20: Patient febrile today at 101.8. Suspect secondary to ongoing C. difficile colitis. Still with complaint of mild abdominal pain, unable to tell me she is having diarrhea due to rectal tube. She denies any new symptoms. Continue oral vancomycin. Will swab patient for influenza and COVID-19. Will need to transfer patient to our COVID-19 unit until her test results negative. Discussed with RN. 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 VITAL SIGNS: Stable. HEENT: Both pupils are round and reacting. No conjunctival lesion, no lesion in the mouth. NECK: Supple, no JVP, no lymphadenopathy. LUNGS: Clear. HEART: S1, S2 regular. ABDOMEN: Diffusely tender, no rebound or guarding. No organomegaly. Abdomen is not distended either. EXTREMITIES: No edema or cyanosis. SKIN: Rest of skin exam is unremarkable. 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 General: Alert, Cooperative, No acute distress Heart: Regular rate, No murmurs Lungs: Clear, Wheezing Abdomen: Soft, No masses Extremities: No clubbing, No cyanosis Skin: No rashes, No significant lesion Labs Labs: Laboratory Tests Test 06/19/20 16:56 06/19/20 21:04 06/19/20 21:11 06/19/20 21:54 Glucose (Fingerstick) 131 mg/dL (70-99) 131 mg/dL (70-99) O2 Saturation 92 % (92-99) Arterial Blood pH 7.44 (7.35-7.45) Arterial Blood pCO2 at Patient Temp 35 mmHg (35-46) Arterial Blood pO2 at Patient Temp 57 mmHg (65-108) Arterial Blood HCO3 23 mmol/L (21-28) Arterial Blood Base Excess -1 mmol/L (-3-3) FiO2 21 Lactic Acid Level 1.2 mmol/L (0.4-2.0) Test 06/20/20 07:10 06/20/20 07:39 06/20/20 11:31 White Blood Count 12.6 x10^3/uL (4.0-11.0) Red Blood Count 3.90 x10^6/uL (3.50-5.40) Hemoglobin 11.7 g/dL (12.0-15.5) Hematocrit 34.9 % (36.0-47.0) Mean Corpuscular Volume 90 fL (79-100) Mean Corpuscular Hemoglobin 30 pg (25-35) Mean Corpuscular Hemoglobin Concent 34 g/dL (31-37) Red Cell Distribution Width 14.1 % (11.5-14.5) Platelet Count 246 x10^3/uL (140-400) Neutrophils (%) (Auto) 68 % (31-73) Lymphocytes (%) (Auto) 21 % (24-48) Monocytes (%) (Auto) 7 % (0-9) Eosinophils (%) (Auto) 3 % (0-3) Basophils (%) (Auto) 0 % (0-3) Neutrophils # (Auto) 8.6 x10^3/uL (1.8-7.7) Lymphocytes # (Auto) 2.6 x10^3/uL (1.0-4.8) Monocytes # (Auto) 0.9 x10^3/uL (0.0-1.1) Eosinophils # (Auto) 0.4 x10^3/uL (0.0-0.7) Basophils # (Auto) 0.0 x10^3/uL (0.0-0.2) Sodium Level 139 mmol/L (136-145) Potassium Level 4.0 mmol/L (3.5-5.1) Chloride Level 104 mmol/L (98-107) Carbon Dioxide Level 31 mmol/L (21-32) Anion Gap 4 (6-14) Blood Urea Nitrogen 9 mg/dL (7-20) Creatinine 1.1 mg/dL (0.6-1.0) Estimated GFR (Cockcroft-Gault) 49.1 Glucose Level 101 mg/dL (70-99) Calcium Level 8.6 mg/dL (8.5-10.1) Glucose (Fingerstick) 108 mg/dL (70-99) 126 mg/dL (70-99) Assessment and Plan Assessmemt and Plan Problems Medical Problems: (1) Pseudomembranous colitis Status: Acute Comment Review of Relevant I have reviewed the following items marcio (where applicable) has been applied. Justifications for Admission Other Justification diarrhea and UTI HUGH GUTIERREZ MD Jun 20, 2020 12:11
[2020-06-20 12:23] LABS: INFLUENZA A PATIENT NEGATIVE (NEGATIVE); INFLUENZA B PATIENT NEGATIVE (NEGATIVE)
[2020-06-20] MEDS: IPRATROPIUM/ALBUTEROL 20/100mcg/INH INHALER. INH SCH ×3 (12:24→21:01)
[2020-06-20] MEDS: CHOLESTYRAMINE/ASPARTAME 4 GM PACKET PO SCH ×3 (14:20→22:08)
[2020-06-20 15:09] VITALS: BP 141/75
[2020-06-20 19:00] VITALS: BP 139/99
[2020-06-20] MEDS: traZODone 50 MG TABLET. PO SCH (21:00)
[2020-06-20] MEDS: TAMSULOSIN 0.4 MG CAP.ER.24H. PO SCH (21:00)
[2020-06-20] MEDS: ACETAMINOPHEN 325 MG TABLET. PO PRN (21:04)
[2020-06-20 23:00] VITALS: BP 143/84
[2020-06-21] MEDS: ONDANSETRON ODT 4 MG TAB.RAPDIS. PO PRN (00:17)
[2020-06-21 03:00] VITALS: BP 105/72
[2020-06-21 07:00] VITALS: BP 120/55
[2020-06-21] MEDS: PANTOPRAZOLE 40 MG TABLET.DR. PO SCH (07:52)
[2020-06-21] MEDS: INSULIN LISPRO 300 UNITS/3 ML VIAL. SQ SCH ×2 (07:52→11:24)
[2020-06-21] MEDS: IPRATROPIUM/ALBUTEROL 20/100mcg/INH INHALER. INH SCH ×2 (07:52→12:02)
[2020-06-21] MEDS: NYSTATIN TOPICAL POWDER 15GM BOTTLE. TP SCH (08:24)
[2020-06-21] MEDS: VANCOMYCIN 125 MG/2.5 ML ORAL SOLUTION. PO SCH (08:24)
[2020-06-21] MEDS: CITALOPRAM 20 MG TABLET. PO SCH (08:24)
[2020-06-21] MEDS: LACTOBACILLUS RHAMNOSUS GG 1 CAPSULE. PO SCH (08:24)
[2020-06-21] MEDS: OXYBUTYNIN CHLORIDE 5 MG TABLET PO SCH (08:24)
[2020-06-21] MEDS: LISINOPRIL 20 MG TABLET PO SCH (08:26)
[2020-06-21 09:16] LABS: BASO # 0.1 x10^3/uL (0.0-0.2); BASO % 0 % (0-3); EOS # 0.4 x10^3/uL (0.0-0.7); EOS % 3 % (0-3); HEMATOCRIT 36.5 % (36.0-47.0); LYMPH # 2.7 x10^3/uL (1.0-4.8); LYMPH % 21 % (24-48); MEAN CORPUSCULAR HEMOGLOBIN 30 pg (25-35); MEAN CORPUSCULAR HGB CONC 33 g/dL (31-37); MEAN CORPUSCULAR VOLUME 90 fL (79-100); MONO # 0.8 x10^3/uL (0.0-1.1); MONO % 6 % (0-9); NEUT # 9.2 x10^3/uL (1.8-7.7); NEUT % 70 % (31-73); PLATELET COUNT 285 x10^3/uL (140-400); RED BLOOD COUNT 4.04 x10^6/uL (3.50-5.40); RED CELL DISTRIBUTION WIDTH 14.3 % (11.5-14.5); WHITE BLOOD COUNT 13.1 x10^3/uL (4.0-11.0)
--- NOTE | 2020-06-21 09:22 | PDOC ---
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 VITAL SIGNS: Stable. HEENT: Both pupils are round and reacting. No conjunctival lesion, no lesion in the mouth. NECK: Supple, no JVP, no lymphadenopathy. LUNGS: Clear. HEART: S1, S2 regular. ABDOMEN: Diffusely tender, no rebound or guarding. No organomegaly. Abdomen is not distended either. EXTREMITIES: No edema or cyanosis. SKIN: Rest of skin exam is unremarkable. NEUROLOGIC: The patient is alert, awake, smiles, but unable to trial judge her orientation because of very poor hearing. Labs Lab Laboratory Tests Test 06/20/20 11:31 06/20/20 11:40 06/20/20 15:18 06/20/20 19:46 Glucose (Fingerstick) 126 mg/dL (70-99) 105 mg/dL (70-99) 114 mg/dL (70-99) Coronavirus (PCR) Not detected (Not Detected) Influenza Type A Antigen Negative (NEGATIVE) Influenza Type B Antigen Negative (NEGATIVE) Test 06/21/20 07:41 Glucose (Fingerstick) 94 mg/dL (70-99) Micro 06/12/20 Antimicrobic Susceptibility - Final, Complete 06/12/20 Blood Culture - Preliminary, Resulted NO GROWTH AFTER 1 DAY Objective Assessment IMPRESSION: 1. Severe diarrhea and CT of the abdomen and pelvis showing colitis, c diff + 2. Fever. 3. Acute kidney injury. 4. Obesity. 5. Diabetes. 6. Hypertension. 7. Chronic obstructive pulmonary disease. Plan Plan of Care urine culture + but likely contaminated with stool, no urinary symptoms cont po vanc supportive care cholestyramine covid neg po vanc qid for 10 days and then bid for 1 mth GRIS MARTIN MD Jun 21, 2020 09:22
[2020-06-21 09:34] LABS: CALCIUM 8.4 mg/dL (8.5-10.1); GFR 54.8; POTASSIUM 4.1 mmol/L (3.5-5.1)
--- NOTE | 2020-06-21 10:19 | PDOC ---
Date of Service: DATE: 06/21/20 TIME: 10:16 Objective: Objective: D/w nurse - tolerating PO, rectal tube out, no diarrhea. Tmax 100.2. Vital Signs: Vital Signs Date Time Temp Pulse Resp B/P (MAP) Pulse Ox O2 Delivery O2 Flow Rate FiO2 06/21/20 08:26 72 120/55 06/21/20 08:08 Nasal Cannula 2.0 06/21/20 07:00 98.3 17 97 98.3 Labs: Laboratory Tests Test 06/20/20 11:31 06/20/20 11:40 06/20/20 15:18 06/20/20 19:46 Glucose (Fingerstick) 126 mg/dL 105 mg/dL 114 mg/dL Coronavirus (PCR) Not detected Influenza Type A Antigen Negative Influenza Type B Antigen Negative Test 06/21/20 07:41 06/21/20 08:00 Glucose (Fingerstick) 94 mg/dL White Blood Count 13.1 x10^3/uL Red Blood Count 4.04 x10^6/uL Hemoglobin 12.0 g/dL Hematocrit 36.5 % Mean Corpuscular Volume 90 fL Mean Corpuscular Hemoglobin 30 pg Mean Corpuscular Hemoglobin Concent 33 g/dL Red Cell Distribution Width 14.3 % Platelet Count 285 x10^3/uL Neutrophils (%) (Auto) 70 % Lymphocytes (%) (Auto) 21 % Monocytes (%) (Auto) 6 % Eosinophils (%) (Auto) 3 % Basophils (%) (Auto) 0 % Neutrophils # (Auto) 9.2 x10^3/uL Lymphocytes # (Auto) 2.7 x10^3/uL Monocytes # (Auto) 0.8 x10^3/uL Eosinophils # (Auto) 0.4 x10^3/uL Basophils # (Auto) 0.1 x10^3/uL Sodium Level 139 mmol/L Potassium Level 4.1 mmol/L Chloride Level 104 mmol/L Carbon Dioxide Level 30 mmol/L Anion Gap 5 Blood Urea Nitrogen 9 mg/dL Creatinine 1.0 mg/dL Estimated GFR (Cockcroft-Gault) 54.8 Glucose Level 113 mg/dL Calcium Level 8.4 mg/dL BLOOD CULTURE Preliminary NO GROWTH AFTER 1 DAY PE: GEN: NAD, eating breakfast and smiling LUNGS: clear anteriorly HEART: RRR ABD: soft - didn't wince as much today NEURO/PSYCH: A & O 3, [place] A/P: Recurrent C Diff Fever - flu and COVID negative -- Stable/improved GI-gonzales, continue per ID. Justicifation of Admission Dx: Justifications for Admission: Justification of Admission Dx: N/A GIFTY PARKINSON Jun 21, 2020 10:18
[2020-06-21] MEDS: CHOLESTYRAMINE/ASPARTAME 4 GM PACKET PO SCH (10:25)
[2020-06-21 11:00] VITALS: BP 121/67
[2020-06-21] MEDS ORDERED: VANC500V PO (11:14)
[2020-06-21] MEDS ORDERED: CHOL4POW PO (11:14)
--- NOTE | 2020-06-21 11:55 | NUR ---
SW following for discharge planning. Spoke with RN and reviewed chart. Pt COVID result negative. Pt to discharge home today, self-care. Pt has HCBS with [facility] per chart review. Pt on 2l 02 but will not need 02 on discharge. Pt titrated. No further SW needs at this time. Addendum: 06/21/20 at 1158 by JACKSON GRAY Pt has script for oral vanco Addendum: 06/21/20 at 1314 by JACKSON GRAY MARINA did arrange for stretcher transportation home via [employer] and [employer] today at 1300. MARINA confirmed address with daughter. PCS form completed and faxed (copy on chart). MARINA did attempt to call [facility] [employer] [facility] as well as [employer] and MARINA was told they could not arrange stretcher discharge for hospital discharge home today.
--- NOTE | 2020-06-21 12:46 | NUR ---
Pt left unit at 1245 by stretcher via EMS. Discharge paperwork sent with pt and discussed with Viky, daughter at [phone], including medications, follow-up, and wound care. VSS upon discharge.
--- NOTE | 2020-06-21 13:26 | PDOC3 ---
Discharge Summary Visit Information Date of Admission: Jun 13, 2020 Date of Discharge: Jun 21, 2020 Admitting Diagnosis Comment: Progression of C. difficile with nausea, vomiting, diarrhea and incidental finding of urinary tract infection. Final Diagnosis Problems Medical Problems: (1) Pseudomembranous colitis Status: Acute Brief Hospital Course Allergies Allergies Coded Allergies Type Severity Reaction Last Updated Verified codeine Allergy Intermediate TOLERATES MORPHINE 02/06/20 Yes I S O L A T I O N *CONTACT* Allergy Unknown 06/14/20 Yes meperidine Adverse Reaction Intermediate Nausea and Vomiting 02/06/20 Yes Vital Signs Vital Signs Date Time Temp Pulse Resp B/P (MAP) Pulse Ox O2 Delivery O2 Flow Rate FiO2 06/21/20 11:00 98.7 81 17 121/67 (85) 94 Nasal Cannula 2.0 98.7 Lab Results Laboratory Tests Test 06/19/20 16:56 06/19/20 21:04 06/19/20 21:11 06/19/20 21:54 Glucose (Fingerstick) 131 mg/dL (70-99) 131 mg/dL (70-99) O2 Saturation 92 % (92-99) Arterial Blood pH 7.44 (7.35-7.45) Arterial Blood pCO2 at Patient Temp 35 mmHg (35-46) Arterial Blood pO2 at Patient Temp 57 mmHg (65-108) Arterial Blood HCO3 23 mmol/L (21-28) Arterial Blood Base Excess -1 mmol/L (-3-3) FiO2 21 Lactic Acid Level 1.2 mmol/L (0.4-2.0) Test 06/20/20 07:10 06/20/20 07:39 06/20/20 11:31 06/20/20 11:40 White Blood Count 12.6 x10^3/uL (4.0-11.0) Red Blood Count 3.90 x10^6/uL (3.50-5.40) Hemoglobin 11.7 g/dL (12.0-15.5) Hematocrit 34.9 % (36.0-47.0) Mean Corpuscular Volume 90 fL (79-100) Mean Corpuscular Hemoglobin 30 pg (25-35) Mean Corpuscular Hemoglobin Concent 34 g/dL (31-37) Red Cell Distribution Width 14.1 % (11.5-14.5) Platelet Count 246 x10^3/uL (140-400) Neutrophils (%) (Auto) 68 % (31-73) Lymphocytes (%) (Auto) 21 % (24-48) Monocytes (%) (Auto) 7 % (0-9) Eosinophils (%) (Auto) 3 % (0-3) Basophils (%) (Auto) 0 % (0-3) Neutrophils # (Auto) 8.6 x10^3/uL (1.8-7.7) Lymphocytes # (Auto) 2.6 x10^3/uL (1.0-4.8) Monocytes # (Auto) 0.9 x10^3/uL (0.0-1.1) Eosinophils # (Auto) 0.4 x10^3/uL (0.0-0.7) Basophils # (Auto) 0.0 x10^3/uL (0.0-0.2) Sodium Level 139 mmol/L (136-145) Potassium Level 4.0 mmol/L (3.5-5.1) Chloride Level 104 mmol/L (98-107) Carbon Dioxide Level 31 mmol/L (21-32) Anion Gap 4 (6-14) Blood Urea Nitrogen 9 mg/dL (7-20) Creatinine 1.1 mg/dL (0.6-1.0) Estimated GFR (Cockcroft-Gault) 49.1 Glucose Level 101 mg/dL (70-99) Calcium Level 8.6 mg/dL (8.5-10.1) Glucose (Fingerstick) 108 mg/dL (70-99) 126 mg/dL (70-99) Coronavirus (PCR) Not detected (Not Detected) Influenza Type A Antigen Negative (NEGATIVE) Influenza Type B Antigen Negative (NEGATIVE) Test 06/20/20 15:18 06/20/20 19:46 06/21/20 07:41 06/21/20 08:00 Glucose (Fingerstick) 105 mg/dL (70-99) 114 mg/dL (70-99) 94 mg/dL (70-99) White Blood Count 13.1 x10^3/uL (4.0-11.0) Red Blood Count 4.04 x10^6/uL (3.50-5.40) Hemoglobin 12.0 g/dL (12.0-15.5) Hematocrit 36.5 % (36.0-47.0) Mean Corpuscular Volume 90 fL (79-100) Mean Corpuscular Hemoglobin 30 pg (25-35) Mean Corpuscular Hemoglobin Concent 33 g/dL (31-37) Red Cell Distribution Width 14.3 % (11.5-14.5) Platelet Count 285 x10^3/uL (140-400) Neutrophils (%) (Auto) 70 % (31-73) Lymphocytes (%) (Auto) 21 % (24-48) Monocytes (%) (Auto) 6 % (0-9) Eosinophils (%) (Auto) 3 % (0-3) Basophils (%) (Auto) 0 % (0-3) Neutrophils # (Auto) 9.2 x10^3/uL (1.8-7.7) Lymphocytes # (Auto) 2.7 x10^3/uL (1.0-4.8) Monocytes # (Auto) 0.8 x10^3/uL (0.0-1.1) Eosinophils # (Auto) 0.4 x10^3/uL (0.0-0.7) Basophils # (Auto) 0.1 x10^3/uL (0.0-0.2) Sodium Level 139 mmol/L (136-145) Potassium Level 4.1 mmol/L (3.5-5.1) Chloride Level 104 mmol/L (98-107) Carbon Dioxide Level 30 mmol/L (21-32) Anion Gap 5 (6-14) Blood Urea Nitrogen 9 mg/dL (7-20) Creatinine 1.0 mg/dL (0.6-1.0) Estimated GFR (Cockcroft-Gault) 54.8 Glucose Level 113 mg/dL (70-99) Calcium Level 8.4 mg/dL (8.5-10.1) Test 06/21/20 10:46 Glucose (Fingerstick) 108 mg/dL (70-99) Laboratory Tests Test 06/20/20 15:18 06/20/20 19:46 06/21/20 07:41 06/21/20 08:00 Glucose (Fingerstick) 105 mg/dL (70-99) 114 mg/dL (70-99) 94 mg/dL (70-99) White Blood Count 13.1 x10^3/uL (4.0-11.0) Red Blood Count 4.04 x10^6/uL (3.50-5.40) Hemoglobin 12.0 g/dL (12.0-15.5) Hematocrit 36.5 % (36.0-47.0) Mean Corpuscular Volume 90 fL (79-100) Mean Corpuscular Hemoglobin 30 pg (25-35) Mean Corpuscular Hemoglobin Concent 33 g/dL (31-37) Red Cell Distribution Width 14.3 % (11.5-14.5) Platelet Count 285 x10^3/uL (140-400) Neutrophils (%) (Auto) 70 % (31-73) Lymphocytes (%) (Auto) 21 % (24-48) Monocytes (%) (Auto) 6 % (0-9) Eosinophils (%) (Auto) 3 % (0-3) Basophils (%) (Auto) 0 % (0-3) Neutrophils # (Auto) 9.2 x10^3/uL (1.8-7.7) Lymphocytes # (Auto) 2.7 x10^3/uL (1.0-4.8) Monocytes # (Auto) 0.8 x10^3/uL (0.0-1.1) Eosinophils # (Auto) 0.4 x10^3/uL (0.0-0.7) Basophils # (Auto) 0.1 x10^3/uL (0.0-0.2) Sodium Level 139 mmol/L (136-145) Potassium Level 4.1 mmol/L (3.5-5.1) Chloride Level 104 mmol/L (98-107) Carbon Dioxide Level 30 mmol/L (21-32) Anion Gap 5 (6-14) Blood Urea Nitrogen 9 mg/dL (7-20) Creatinine 1.0 mg/dL (0.6-1.0) Estimated GFR (Cockcroft-Gault) 54.8 Glucose Level 113 mg/dL (70-99) Calcium Level 8.4 mg/dL (8.5-10.1) Test 06/21/20 10:46 Glucose (Fingerstick) 108 mg/dL (70-99) Brief Hospital Course HISTORY OF PRESENT ILLNESS: The patient is a pleasant 70-year-old female who has been recently diagnosed with C. diff, now her disease has progressed and she has worsening nausea, vomiting, diarrhea, it has been occurring for about 24 hours. I discussed the case with ER physician. We are going to admit the patient and consult GI and give her IV antibiotics including p.o. vancomycin. 06/15/2020 - pt seen and evaluated at bedside - pt is pleasantly confused - on 2 L of O2 NC - pt currently taking vancomycin and zosyn - continue to monitor rectal bag cont po vanc supportive care 06/16/20 - pt seen and evaluated at bedside - on 2 L of O2 NC - pt currently taking vancomycin and zosyn - continue to monitor rectal bag - cont po vanco - supportive care - dw RN - chart reviewed 06/17/2020 -Patient seen and examined at bedside -Urine culture shows enterobacter cloacae, but when reviewing charts, ID suspects contaminant in stool -Dw RN -Chart reviewed 06/18: Patient seen and evaluated bedside. Afebrile. Still with some complaints of epigastric abdominal pain. Urine culture felt to be contaminant. Continue with p.o. vancomycin. Charts and labs reviewed. 06/19: Patient seen and evaluated. Still with complaints of abdominal pain, denies further episodes of diarrhea. Afebrile. Tolerating GI soft diet. Continue p.o. Vanco. She has history of COPD, currently on 2 L nasal cannula intermittently. Will obtain ABG prior to discharge to evaluate need for home O2. 06/20: Patient febrile today at 101.8. Suspect secondary to ongoing C. difficile colitis. Still with complaint of mild abdominal pain, unable to tell me she is having diarrhea due to rectal tube. She denies any new symptoms. Continue oral vancomycin. Will swab patient for influenza and COVID-19. Will need to transfer patient to our COVID-19 unit until her test results negative. Discussed with RN. 06/21: Patient had an uneventful overnight on the last hospital day.-Assumed care on her last hospital day and discussed the case with our ID clinical operations consultant. Recommendations for vancomycin were written in the chart and he sent prescription for the patient in order to continue with her treatment at home. ER note indicates sent from [place] w/ abd pain, vomiting, and intermittent diarrhea. Previous GI workup: C Diff positive: 07/2016, 11/2016, 07/2019, 01/2020 Colonoscopy 07/2016 (to splenic flexure) by Dr. Connell: internal hemorrhoids, active diverticulitis in sigmoid colon w/ purulent drainage, poor prep. Barium enema 02/2011: sigmoid diverticulosis, moderately redundant colon. Colonoscopy 01/2011 (to hepatic flexure): sigmoid diverticulosis, non-bleeding internal hemorrhoids. Colonoscopy 2008 (to cecum) by Dr. Ruiz: adenomatous polyp in transverse colon, diverticulosis. Additionally had colonoscopies in 2004 (Dr. Christian) and 2000 (Dr. Neal). Treated by PCP in 2016 for + H. pylori lab test. EGD 01/[address] Connell: normal esophagus, gastritis, duodenal diverticulum. EGD [address] Ruiz: neg esophageal biopsies. EGD [address] Christian: antral biopsies neg for pathology. EGD [address] Neal: +H. pylori, was treated. S/p cholecystectomy. No liver or pancreas history. No NSAIDs. She was deemed appropriate for discharge signs and symptoms of concern were discussed prior to discharge greater than 35 minutes were spent in the discharge for the patient counseling coordination of care and arrangements for a safe transfer back to her long-term GENERAL: Alert, but orientation unable to counselor aide, 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 VITAL SIGNS: Stable. HEENT: Both pupils are round and reacting. No conjunctival lesion, no lesion in the mouth. NECK: Supple, no JVP, no lymphadenopathy. LUNGS: Clear. HEART: S1, S2 regular. Discharge Information Condition at Discharge: Improved Follow Up: Weeks Disposition/Orders: D/C to Another Facility Scheduled Cholestyramine/Aspartame (Cholestyramine Light Packet) 4 Gm Powd.pack, 4 GM PO QIDPMEDS for diarrhea for 7 Days, #28 Prescribed by: SHERIDAN HYLTON MD on 06/21/20 1114 Citalopram Hydrobromide (Celexa) 20 Mg Tablet, 1 TAB PO DAILY for depression, #9 0 Ref 3 (Reported) Entered as Reported by: MIGUEL GILBERT on 05/26/20 1241 Last Action: Continued on 06/15/20 1516 by ABHISHEK DANIELSON MD Eluxadoline (Viberzi) 75 Mg Tablet, 75 MG PO BID for stomach pain, (Reported) Entered as Reported by: ISRRAEL SHAW on 05/29/20 1941 Last Action: Converted on 06/15/201515 by ABHISHEK DANIELSON MD Insulin Lispro (Admelog) 100 Unit/1 Ml Vial, 0 UNITS SQ TIDWMEALS for DIABETES for 30 Days, #2 Prescribed by: ABHISHEK DANIELSON MD on 05/30/201151 Last Action: Continued on 06/15/201515 by ABHISHEK DANIELSON MD Ipratropium/Albuterol Sulfate (Combivent Respimat Inhal) 4 Gm Aer.w.adap, 2 INH IH QID for breathing for 30 Days, #1 Prescribed by: YI HEATON MD on 05/04/18 1618 Last Action: Converted on 06/15/201515 by ABHISHEK DANIELSON MD Lactobacillus Rhamnosus Gg (Culturelle) 1 Each Cap.sprink, 1 CAP PO BID for SUPPLEMENT for 30 Days, #60 Prescribed by: ABHISHEK DANIELSON MD on 05/30/201151 Last Action: Continued on 06/15/201515 by ABHISHEK DANIELSON MD Lisinopril (Lisinopril) 20 Mg Tablet, 1 TAB PO DAILY for HTN, #30 Ref 5 ( Reported) Entered as Reported by: MIGUEL GILBERT on 05/26/20 1233 Last Action: Continued on 06/15/201515 by ABHISHEK DANIELSON MD Nystatin (Nystatin) 15 Gm Powder, 1 PAULETTE TP BID for yeast infection/skin folds, #1 (Reported) Entered as Reported by: ISELA MUELLER on 04/27/18 0110 Last Action: Continued on 06/15/201515 by ABHISHEK DANIELSON MD Psyllium Husk/Aspartame (Metamucil Fiber Singles Packet) 3.4 Gm Powd.pack, 1 PKT PO QHS for PREVENT CONSTIPATION for 30 Days, #30 Prescribed by: ABHISHEK DANIELSON MD on 05/30/201151 Last Action: Continued on 06/15/201515 by ABHISHEK DANIELSON MD Solifenacin Succinate (Vesicare) 10 Mg Tablet, 1 TAB PO DAILY for bladder problem, #30 Ref 5 (Reported) Entered as Reported by: ISELA MUELLER on 04/27/18 0003 Last Action: Converted on 06/15/201515 by ABHISHEK DANIELSON MD Tamsulosin Hcl (Flomax) 0.4 Mg Cap.er.24h, 1 CAP PO HS for bladder problem, #30 Ref 11 (Reported) Entered as Reported by: ISELA MUELLER on 04/27/18 0003 Last Action: Continued on 06/15/201515 by ABHISHEK DANIELSON MD Trazodone Hcl (Trazodone Hcl) 50 Mg Tablet, 1 TAB PO QHS for insomnia, #30 Ref 1 (Reported) Entered as Reported by: MIGUEL GILBERT on 05/26/20 1241 Last Action: Continued on 06/15/201515 by ABHISHEK DANIELSON MD Vancomycin Hcl (Vancomycin Hcl) 500 Mg Vial, 125 MG PO QID for c diff for 14 Days, #14 Prescribed by: SHERIDAN HYLTON MD on 06/21/20 111 Scheduled PRN Acetaminophen (Tylenol) 325 Mg Tablet, 650 MG PO PRN Q4HRS PRN for TEMP OVER 100.4F for 30 Days, #60 Prescribed by: ABHISHEK DANIELSON MD on 05/30/201151 Last Action: Continued on 06/15/201515 by ABHISHEK DANIELSON MD Docusate Sodium (Dok) 100 Mg Capsule, 100 MG PO PRN BID PRN for HARD STOOLS for 30 Days, #60 Prescribed by: ABHISHEK DANIELSON MD on 05/30/201151 Last Action: Continued on 06/15/201515 by ABHISHEK DANIELSON MD Olanzapine (Olanzapine Odt) 5 Mg Tab.rapdis, 5 MG PO PRN BID PRN for ANXIETY / AGITATION for 14 Days, #30 Prescribed by: ABHISHEK DANIELSON MD on 05/30/201151 Last Action: Continued on 06/15/201515 by ABHISHEK DANIELSON MD Ondansetron Hcl (Zofran) 4 Mg Tablet, 1 TAB PO PRN Q4HRS PRN for NAUSEA, #20 (Reported) Entered as Reported by: MIGUEL GILBERT on 05/26/20 1241 Last Action: Converted on 06/15/201515 by ABHISHEK DANIELSON MD Discontinued Medications Cefpodoxime Proxetil (Cefpodoxime Proxetil) 200 Mg Tablet, 1 TAB PO BID for INFECTION for 10 Days, #20 Prescribed by: ABHISHEK DANIELSON MD on 05/30/20 1152 Last Action: HELD on 06/15/20 1516 by ABHISHEK DANIELSON MD Justicifation of Admission Dx: Justifications for Admission: Justification of Admission Dx: N/A SHERIDAN HYLTON MD Jun 21, 2020 13:26
== END 2020-06-21 12:55 | disposition home health service (06) | DRG 371 ==
LOC: ER 18:03 → 4 NORTH 06-13 00:29 → 6 SOUTH 06-20 10:21
PROVIDERS: ADMIT Family Medicine; ATTEND Family Medicine
DX: A04.71 Enterocolitis due to Clostridium difficile, recurrent (principal); N17.0 Acute kidney failure with tubular necrosis; R65.11 Systemic inflammatory response syndrome (SIRS) of non-infectious origin with acute organ dysfunction; N39.0 Urinary tract infection, site not specified; G93.40 Encephalopathy, unspecified; E66.9 Obesity, unspecified; E11.9 Type 2 diabetes mellitus without complications; I10 Essential (primary) hypertension; J44.9 Chronic obstructive pulmonary disease, unspecified; F03.90 Unspecified dementia, unspecified severity, without behavioral disturbance, psychotic disturbance, mood disturbance, and anxiety; I25.10 Atherosclerotic heart disease of native coronary artery without angina pectoris; H91.90 Unspecified hearing loss, unspecified ear; G89.29 Other chronic pain; Z20.822 Contact with and (suspected) exposure to COVID-19; F32.9 Major depressive disorder, single episode, unspecified; K21.9 Gastro-esophageal reflux disease without esophagitis; Z68.32 Body mass index [BMI] 32.0-32.9, adult; Z74.01 Bed confinement status; Z86.14 Personal history of Methicillin resistant Staphylococcus aureus infection; Z90.49 Acquired absence of other specified parts of digestive tract; Z88.5 Allergy status to narcotic agent; Z88.8 Allergy status to other drugs, medicaments and biological substances; Z91.041 Radiographic dye allergy status; Z89.611 Acquired absence of right leg above knee; Z83.3 Family history of diabetes mellitus
CPT/HCPCS: 36415; 36600; 71045; 74176; 80048; 80053; 80069; 80076; 81001; 82805; 82962; 83605; 84145; 85007; 85025; 85610; 85730; 87040; 87077; 87086; 87186; 87493; 87804; 94640; 94760; 96365; 96368; J1815; J2270; J2405; J2543; J3370; J3490; J7030; J7040; U0003; 99285-25; G0378

== ENCOUNTER 2021-01-01 02:20 | Inpatient (IN) | payer OTHER ==
[~2021-01-01] VITALS: Ht 157.5 cm; Wt 74.6 kg
[~2021-01-01 02:20] MED LIST changes: -ACYC800T PO; +ACYC800T88 PO; +AMLO-186 PO; +CHOL4POW PO; +DOCU-148 PO; -DOCU-153 PO; +POTA-116 PO; -POTA10TA12 PO
--- NOTE | 2021-01-01 02:45 | ED.ADGEN ---
Past Medical History Past Medical History: COPD, Diabetes-Type II, GERD, Hypertension, MRSA, Other Additional Past Medical Histor: "bladder problems", HYPERKALEMIA, COQUILLE,CDIFF, Past Surgical History: Appendectomy, Cholecystectomy, Colectomy, Tonsillectomy, Other Additional Past Surgical Histo: R AKA, hernia Smoking Status: Unknown if ever smoked Alcohol Use: None Drug Use: None General Adult EDM: Chief Complaint: FEVER HPI: HPI: Patient is a 70 year old female brought in by EMS for fever of 101 at home. Patient has been sick with Covid type symptoms for the past week. History provided by patient's daughter via phone since patient has a history of dementia and is hard of hearing. Baseline mentation status currently of alert and oriented x1. Per patient's daughter multiple family members tested positive for Covid 1 week ago. Patient is not vaccinated. On EMS arrival patient's oxygen saturation was 82% on room air, patient does not have any history of home oxygen requirements or use. She was placed on 4 L nasal cannula with improvement of O2 sats to 92 to 93% Review of Systems: Review of Systems: All other systems within normal limits except for as noted in the HPI Current Medications: Current Medications Medications (Trade) Dose Ordered Sig/Haim Start Time Stop Time Status Last Admin Dose Admin Acetaminophen (Tylenol) 1,000 mg 1X ONCE 01/01/21 03:00 01/01/21 03:01 DC Ceftriaxone Sodium (Rocephin) 1 gm 1X ONCE 01/01/21 05:00 01/01/21 05:01 DC 01/01/21 04:34 1 GM Dexamethasone Sodium Phosphate (Decadron) 10 mg 1X ONCE 01/01/21 05:00 01/01/21 05:01 DC 01/01/21 04:34 10 MG Doxycycline Hyclate 100 mg/ Dextrose 100 ml @ 50 mls/hr 1X ONCE 01/01/21 05:00 01/01/21 06:59 01/01/21 05:15 50 MLS/HR Info (CONTRAST GIVEN -- Rx MONITORING) 1 each PRN DAILY PRN 01/01/21 04:00 01/03/21 03:59 Iohexol (Omnipaque 350 Mg/ml) 100 ml 1X ONCE 01/01/21 04:30 01/01/21 04:31 DC 01/01/21 04:02 100 ML Ondansetron HCl (Zofran) 4 mg PRN Q6HRS PRN 01/01/21 06:15 01/01/21 06:12 4 MG Allergies: Allergies: Allergies Coded Allergies Type Severity Reaction Last Updated Verified codeine Allergy Intermediate TOLERATES MORPHINE 02/06/20 Yes I S O L A T I O N *CONTACT* Allergy Unknown 06/14/20 Yes meperidine Adverse Reaction Intermediate Nausea and Vomiting 02/06/20 Yes Physical Exam: PE: Constitutional: Well developed, well nourished, no acute distress, non-toxic appearance. [] HENT: Normocephalic, atraumatic, bilateral external ears normal, nose normal. [] Eyes: PERRLA, conjunctiva normal, no discharge. [] Neck: No rigidity, supple, no stridor. [] Cardiovascular: Regular rate and rhythm, brisk cap refill [] Lungs & Thorax: Non labored symmetric respirations, no tachypnea or respiratory distress [] Abdomen: Soft, nondistended. Skin: Warm, dry, no erythema, no rash., Erythematous wound at base of right AKA stump [] Back: Unremarkable Extremities: No deformities, range of motion grossly intact, no lower extremity edema. Right AKA [] Neurologic: Alert and oriented X 1, no focal deficits noted. [] Psychologic: Affect normal, judgement normal, mood normal. [] Current Patient Data: Labs: Laboratory Tests Test 01/01/21 02:45 01/01/21 03:15 White Blood Count 11.3 x10^3/uL (4.0-11.0) H Red Blood Count 4.21 x10^6/uL (3.50-5.40) Hemoglobin 12.7 g/dL (12.0-15.5) Hematocrit 37.1 % (36.0-47.0) Mean Corpuscular Volume 88 fL (79-100) Mean Corpuscular Hemoglobin 30 pg (25-35) Mean Corpuscular Hemoglobin Concent 34 g/dL (31-37) Red Cell Distribution Width 13.8 % (11.5-14.5) Platelet Count 195 x10^3/uL (140-400) Neutrophils (%) (Auto) 90 % (31-73) H Lymphocytes (%) (Auto) 7 % (24-48) L Monocytes (%) (Auto) 2 % (0-9) Eosinophils (%) (Auto) 0 % (0-3) Basophils (%) (Auto) 0 % (0-3) Neutrophils # (Auto) 10.2 x10^3/uL (1.8-7.7) H Lymphocytes # (Auto) 0.8 x10^3/uL (1.0-4.8) L Monocytes # (Auto) 0.3 x10^3/uL (0.0-1.1) Eosinophils # (Auto) 0.0 x10^3/uL (0.0-0.7) Basophils # (Auto) 0.0 x10^3/uL (0.0-0.2) Segmented Neutrophils % 82 % (35-66) H Band Neutrophils % 1 % (0-9) Lymphocytes % 13 % (24-48) L Monocytes % 4 % (0-10) Platelet Estimate Adequate (ADEQUATE) D-Dimer (Mariana) 6.32 ug/mlFEU (0.00-0.50) H Sodium Level 139 mmol/L (136-145) Potassium Level 3.9 mmol/L (3.5-5.1) Chloride Level 105 mmol/L (98-107) Carbon Dioxide Level 27 mmol/L (21-32) Anion Gap 7 (6-14) Blood Urea Nitrogen 16 mg/dL (7-20) Creatinine 0.8 mg/dL (0.6-1.0) Estimated GFR (Cockcroft-Gault) 70.9 BUN/Creatinine Ratio 20 (6-20) Glucose Level 155 mg/dL (70-99) H Lactic Acid Level 1.2 mmol/L (0.4-2.0) Calcium Level 8.1 mg/dL (8.5-10.1) L Phosphorus Level 1.9 mg/dL (2.6-4.7) L Magnesium Level 1.9 mg/dL (1.8-2.4) Total Bilirubin 0.5 mg/dL (0.2-1.0) Aspartate Amino Transferase (AST) 100 U/L (15-37) H Alanine Aminotransferase (ALT) 28 U/L (14-59) Alkaline Phosphatase 129 U/L (46-116) H Troponin I Quantitative < 0.017 ng/mL (0.000-0.055) YB-Ezk-O-Type Natriuretic Peptide 1114 pg/mL (0-124) H Total Protein 7.2 g/dL (6.4-8.2) Albumin 2.3 g/dL (3.4-5.0) L Albumin/Globulin Ratio 0.5 (1.0-1.7) L Influenza Type A Antigen Negative (NEGATIVE) Influenza Type B Antigen Negative (NEGATIVE) Urine Collection Type U cath Urine Color Yellow Urine Clarity Clear Urine pH 6.0 (<5.0-8.0) Urine Specific [place] 1.020 (1.000-1.030) Urine Protein 100 mg/dL (NEG-TRACE) Urine Glucose (UA) Negative mg/dL (NEG) Urine Ketones (Stick) Trace mg/dL (NEG) Urine Blood Negative (NEG) Urine Nitrite Negative (NEG) Urine Bilirubin Negative (NEG) Urine Urobilinogen Dipstick 1.0 mg/dL (0.2 mg/dL) Urine Leukocyte Esterase Small (NEG) Urine RBC Occ /HPF (0-2) Urine WBC 11-20 /HPF (0-4) Urine Squamous Epithelial Cells Few /LPF Urine Bacteria Moderate /HPF (0-FEW) Laboratory Tests 01/01/21 02:45 Laboratory Tests 01/01/21 02:45 Vital Signs: Vital Signs Date Time Temp Pulse Resp B/P (MAP) Pulse Ox O2 Delivery O2 Flow Rate FiO2 01/01/21 03:52 98.0 98.0 01/01/21 02:30 87 20 103/74 (68) 94 High Flow Nasal Cannula 4.0 EKG: EKG: [] Heart Score: C/O Chest Pain: No HEART Score for Chest Pain: HEART Score for Chest Pain Response (Comments) Value History Slighlty/Non-Suspicious 0 ECG Nonspecific Repolarizatio 1 Age > 65 2 Risk Factors 1 or 2 Risk Factors 1 Troponin < Normal Limit 0 Total 4 Risk Factors: Risk Factors: DM, Current or recent (<one month) smoker, HTN, HLP, family history of CAD, obesity. Risk Scores: Score 0 - 3: 2.5% MACE over next 6 weeks - Discharge Home Score 4 - 6: 20.3% MACE over next 6 weeks - Admit for Clinical Observation Score 7 - 10: 72.7% MACE over next 6 weeks - Early Invasive Strategies Radiology/Procedures: Radiology/Procedures: [facility] [address] [place] [address] IMAGING REPORT Signed PATIENT: ADRIANO MARSHALL ACCOUNT: [id number] : 1950 LOCATION: ER AGE: 70 SEX: F EXAM STATUS: REG ER ORD. PHYSICIAN: ESTUARDO HAZEL MD REASON: covid, pe, abd pain;OMNI 350 100ML PROCEDURE: CT ANGIO CHEST W ABD PEL W/ CT angiography chest with contrast. CT abdomen and pelvis with contrast PQRS statement: CT scans at this facility use dose reduction including either automated exposure control, iterative reconstructions, and /or weight based radiation dosing via mA and kV modification when appropriate to reduce radiation dose to as low as reasonably achievable. HISTORY: Covid infection. Pulmonary emboli. Abdominal pain. COMPARISON: CT abdomen and pelvis September 13, 2020 TECHNIQUE: 100 mL Omnipaque 350 intravenous contrast with 3-D MIP reconstructions of the arteries acquired. Chest findings: Mild tortuosity of the thoracic aorta. Ascending aorta diameter 3.2 cm. No thoracic aortic aneurysm or dissection. Calcified plaque left coronary artery and of the descending thoracic aorta. Mild cardiomegaly. Esophagus unremarkable. No enlarged adenopathy in the chest. No pulmonary artery emboli evident. There is respiratory motion artifact resulting in misregistration of the peripheral lobar pulmonary arteries may decrease sensitivity to detect small peripheral lobar emboli. Trachea and bronchi are unremarkable. There are heterogeneous bilateral pulmonary groundglass and consolidated opacities. No pulmonary interstitial edema. No pleural effusions. Bones are unremarkable. Abdomen findings: Hypodense liver likely fatty. Cholecystectomy. Atrophy of the pancreas. 3 cm duodenal diverticulum at the head of the pancreas. Bilateral renal parapelvic cysts. Adrenals and spleen are unremarkable. Aortoiliac artery calcified plaque. No bowel obstruction. Appendix is absent. There is luminal collapse and wall thickening with mild surrounding hypervascularity from the cecum the transverse colon and at the rectosigmoid colon some spurring of the descending colon. Aortoiliac artery calcified plaque. No abdominal fluid or adenopathy. Lumbar scoliosis and disc disease. Pelvis findings: Rectosigmoid hypervascular mucosal enhancement and wall thickening. Bladder, uterus, ovaries and bones are unremarkable IMPRESSION: 1. No pulmonary artery emboli. 2. Extensive pulmonary opacities most likely the sequela of viral pneumonia given history of Covid infection. 3. Colitis. Electronically signed by: Carlos Camp MD (01/01/2021 4:31 AM) [facility] [place] and SIGNED BY: CARLOS CAMP MD DATE: 01/01/21 [id number] [] Course & Med Decision Making: Course & Med Decision Making Pertinent Labs and Imaging studies reviewed. (See chart for details) [] Dragon Disclaimer: Dragon Disclaimer: This electronic medical record was generated, in whole or in part, using a voice recognition dictation system. Departure Departure Impression: Primary Impression: Person under investigation for COVID-19 Disposition: ADMITTED INPATIENT Admitting Physician: SAMANTHA Condition: GUARDED Referrals: Yao HEATON MD (PCP) ESTUARDO HAZEL MD Jan 01, 2021 02:45
[2021-01-01 02:58] LABS: BASO % 0 % (0-3); EOS % 0 % (0-3); HEMATOCRIT 37.1 % (36.0-47.0); HEMOGLOBIN 12.7 g/dL (12.0-15.5); LYMPH # 0.8 x10^3/uL (1.0-4.8); LYMPH % 7 % (24-48); MEAN CORPUSCULAR HEMOGLOBIN 30 pg (25-35); MEAN CORPUSCULAR HGB CONC 34 g/dL (31-37); MEAN CORPUSCULAR VOLUME 88 fL (79-100); MONO # 0.3 x10^3/uL (0.0-1.1); MONO % 2 % (0-9); NEUT # 10.2 x10^3/uL (1.8-7.7); NEUT % 90 % (31-73); PLATELET COUNT 195 x10^3/uL (140-400); RED BLOOD COUNT 4.21 x10^6/uL (3.50-5.40); RED CELL DISTRIBUTION WIDTH 13.8 % (11.5-14.5); WHITE BLOOD COUNT 11.3 x10^3/uL (4.0-11.0)
[2021-01-01] MEDS ORDERED: ACETAMINOPHEN 500 MG TABLET PO ONE (03:00)
[2021-01-01 03:11] LABS: CALCIUM 8.1 mg/dL (8.5-10.1); CREATININE 0.8 mg/dL (0.6-1.0); GFR 70.9; POTASSIUM 3.9 mmol/L (3.5-5.1)
[2021-01-01 03:16] LABS: ALBUMIN 2.3 g/dL (3.4-5.0); ALBUMIN/GLOBULIN RATIO 0.5 (1.0-1.7); MAGNESIUM 1.9 mg/dL (1.8-2.4); PHOSPHORUS 1.9 mg/dL (2.6-4.7); TOTAL BILIRUBIN 0.5 mg/dL (0.2-1.0); TOTAL PROTEIN 7.2 g/dL (6.4-8.2)
[2021-01-01] MEDS ORDERED: ONDANSETRON PF 4 MG/2 ML VIAL. ONE (03:17)
[2021-01-01 03:18] LABS: INFLUENZA A PATIENT NEGATIVE (NEGATIVE); INFLUENZA B PATIENT NEGATIVE (NEGATIVE)
--- NOTE | 2021-01-01 03:26 | EKG ---
[facility] [address] [place] [address] Test Date: 2021-01-01 Test Time: 02:53:10 Pat Name: ADRIANO MARSHALL Department: Room: Gender: F [employer]: : 1950 Requested By: ESTUARDO HAZEL Order Number: [id number] Reading MD: Measurements Intervals [place] Rate: 90 P: [place]: QRS: -35 QRSD: 174 T: 183 QT: 406 QTc: 501 Interpretive Statements SINUS RHYTHM ABNORMAL LEFT AXIS DEVIATION LEFT BUNDLE BRANCH BLOCK ABNORMAL ECG RI6.02 No previous ECG available for comparison
[2021-01-01 03:27] LABS: BILIRUBIN,URINE NEGATIVE (NEG); CLARITY,URINE CLEAR; COLOR,URINE YELLOW; NITRITE,URINE NEGATIVE (NEG); PROTEIN,URINE 100 mg/dL (NEG-TRACE)
[2021-01-01] MEDS ORDERED: ONDANSETRON PF 4 MG/2 ML VIAL. IVP ONE ×2 (03:30→05:00)
[2021-01-01 03:40] LABS: BACTERIA,URINE MODERATE /HPF (0-FEW); RBC,URINE OCC /HPF (0-2)
[2021-01-01 03:58] LABS: % BANDS 1 % (0-9); % LYMPHS 13 % (24-48); % MONOS 4 % (0-10); % SEGS 82 % (35-66); PLT ESTIMATE ADEQUATE (ADEQUATE)
[2021-01-01] MEDS ORDERED: CONTRAST GIVEN. MC PRN (04:00)
[2021-01-01] MEDS ORDERED: IOHEXOL 350 MG/ML 100 ML VIAL. IV ONE (04:30)
--- NOTE | 2021-01-01 04:34 | RAD ---
CT angiography chest with contrast. CT abdomen and pelvis with contrast PQRS statement: CT scans at this facility use dose reduction including either automated exposure cont rol, iterative reconstructions, and /or weight based radiation dosing via mA and kV modification when appropriate to reduce radiation dose to as low as reasonably achievable. HISTORY: Covid infection. Pulmonary emboli. Abdominal pain. COMPARISON: CT abdomen and pelvis September 13, 2020 TECHNIQUE: 100 mL Omnipaque 350 intravenous contrast with 3-D MIP reconstructions of the arteries acq uired. Chest findings: Mild tortuosity of the thoracic aorta. Ascending aorta diameter 3.2 cm. No thoracic a ortic aneurysm or dissection. Calcified plaque left coronary artery and of the descending thoracic ao rta. Mild cardiomegaly. Esophagus unremarkable. No enlarged adenopathy in the chest. No pulmonary art arleen emboli evident. There is respiratory motion artifact resulting in misregistration of the peripher al lobar pulmonary arteries may decrease sensitivity to detect small peripheral lobar emboli. Trachea and bronchi are unremarkable. There are heterogeneous bilateral pulmonary groundglass and consolidat ed opacities. No pulmonary interstitial edema. No pleural effusions. Bones are unremarkable. Abdomen findings: Hypodense liver likely fatty. Cholecystectomy. Atrophy of the pancreas. 3 cm duoden al diverticulum at the head of the pancreas. Bilateral renal parapelvic cysts. Adrenals and spleen ar e unremarkable. Aortoiliac artery calcified plaque. No bowel obstruction. Appendix is absent. There i s luminal collapse and wall thickening with mild surrounding hypervascularity from the cecum the miller sverse colon and at the rectosigmoid colon some spurring of the descending colon. Aortoiliac artery c alcified plaque. No abdominal fluid or adenopathy. Lumbar scoliosis and disc disease. Pelvis findings: Rectosigmoid hypervascular mucosal enhancement and wall thickening. Bladder, uterus, ovaries and bones are unremarkable IMPRESSION: 1. No pulmonary artery emboli. 2. Extensive pulmonary opacities most likely the sequela of viral pneumonia given history of Covid in fection. 3. Colitis. Electronically signed by: Seth Camp MD (01/01/2021 4:31 AM) [facility]
[2021-01-01] MEDS ORDERED: DEXAMETHASONE SOD PHOS 20 MG/5 ML VIAL. IV ONE (05:00)
[2021-01-01] MEDS ORDERED: cefTRIAXone IV Push 1 GM VIAL. IVP ONE (05:00)
[2021-01-01] MEDS ORDERED: DOXYCYCLINE HYCLATE 100 MG in IV DEXTROSE 5% 100ML 100 ML IV ONE (05:00)
[2021-01-01] MEDS: ONDANSETRON PF 4 MG/2 ML VIAL. IVP PRN (06:12)
--- NOTE | 2021-01-01 07:46 | PDOC1 ---
History and Physical Date of Admission Date of Admission DATE: 01/01/21 TIME: 07:41 Identification/Chief Complaint Chief Complaint Shortness of breath, diarrhea Source Source: Caregiver, Chart review, Patient History of Present Illness History of Present Illness Ms Alexis is a 70yo F w/ PMHx COPD, Diabetes-Type II, GERD, Hypertension, [place], dementia, 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 Patient has been sick with Covid type symptoms for the past week with shortness of breath, progressive weakness large amounts of diarrhea that are foul-smelling decreased appetite. History provided by patient's daughter via phone notes the entire family is isolating at home from being Covid positive, patient is able to say her right leg hurts but otherwise despite hearing amplification does not give any other history and most of the history is given. Daughter over the telephone. Baseline mentation status currently of alert and oriented x1. 2 family member tested positive for Covid19 approximately 1 week ago. Patient is not vaccinated. EMS noted patient's oxygen saturation was 82% and was placed on 4 L nasal cannula with improvement of O2 sats to 92 to 93%. CTA chest abdomen pelvis with bilateral pulmonary opacities and colitis, no abscess noted. Negative for pulmonary embolism WBC 11.3, Hb 12.7, platelets 195, D-dimer 6.32, NA 139, K3 0.9 mmol BUN 16, CR 0.4 glucose 135 calcium 8.1, Phos 1.9, magnesium 1.9, bilirubin 0.5, AST 100, ALT 28, alk phos 129 NT proBNP 1114, albumin 2.3, lactic acid 1.2, rapid flu negative urinalysis with small leuk esterase. Rapid COVID 19 positive Admitted for further care Past Medical History Cardiovascular: HTN Pulmonary: No pertinent hx, Other GI: GERD Heme/Onc: Anemia NOS Hepatobiliary: Cholelithiasis Psych: No pertinent hx Musculoskeletal: Osteoarthritis Rheumatologic: No pertinent hx Infectious disease: Other Renal/: Urinary Incontinence, Other Endocrine: No pertinent hx Past Surgical History Past Surgical History: Appendectomy, Cholecystectomy, Hernia Repair, Tonsillectomy, Other Family History Family History: Asthma, Diabetes Social History Smoke: No ALCOHOL: none Drugs: None Current Problem List Problem List Problems Medical Problems: (1) Person under investigation for COVID-19 Status: Acute Current Medications Current Medications Current Medications Acetaminophen (Tylenol) 1,000 mg 1X ONCE PO Last administered on 01/01/21at 06:22; Start 01/01/21 at 03:00; Stop 01/01/21 at 03:01; Status DC Ondansetron HCl (Zofran) 4 mg 1X ONCE IVP Last administered on 01/01/21at 03:19; Start 01/01/21 at 03:30; Stop 01/01/21 at 03:33; Status DC Ondansetron HCl (Zofran) 4 mg STK-MED ONCE .ROUTE ; Start 01/01/21 at 03:17; Stop 01/01/21 at 03:17; Status DC Iohexol (Omnipaque 350 Mg/ml) 100 ml 1X ONCE IV Last administered on 01/01/21at 04:02; Start 01/01/21 at 04:30; Stop 01/01/21 at 04:31; Status DC Info (CONTRAST GIVEN -- Rx MONITORING) 1 each PRN DAILY PRN MC SEE COMMENTS; Start 01/01/21 at 04:00; Stop 01/03/21 at 03:59 Ondansetron HCl (Zofran) 4 mg 1X ONCE IVP Last administered on 01/01/21at 04:15; Start 01/01/21 at 05:00; Stop 01/01/21 at 05:01; Status DC Dexamethasone Sodium Phosphate (Decadron) 10 mg 1X ONCE IV Last administered on 01/01/21at 04:34; Start 01/01/21 at 05:00; Stop 01/01/21 at 05:01; Status DC Doxycycline Hyclate 100 mg/ Dextrose 100 ml @ 50 mls/hr 1X ONCE IV Last administered on 01/01/21at 05:15; Start 01/01/21 at 05:00; Stop 01/01/21 at 06:59; Status DC Ceftriaxone Sodium (Rocephin) 1 gm 1X ONCE IVP Last administered on 01/01/21at 04:34; Start 01/01/21 at 05:00; Stop 01/01/21 at 05:01; Status DC Ondansetron HCl (Zofran) 4 mg PRN Q6HRS PRN IVP NAUSEA/VOMITING 1ST CHOICE Last administered on 01/01/21at 06:12; Start 01/01/21 at 06:15 Magnesium Sulfate/ Dextrose 100 ml @ 100 mls/hr 1X ONCE IV ; Start 01/01/21 at 07:45; Stop 01/01/21 at 08:44; Status UNV Potassium Phosphate 13.6 mmol/Sodium Chloride 254.5333 ml @ 127.... Q2H IV ; Start 01/01/21 at 07:45; Stop 01/01/21 at 11:44; Status UNV Active Scripts Active Amlodipine Besylate 5 Mg Tablet 2.5 Mg PO DAILY 30 Days Cholestyramine Light Packet (Cholestyramine/Aspartame) 4 Gm Powd.pack 4 Gm PO QIDPMEDS 7 Days Vancomycin Hcl 500 Mg Vial 125 Mg PO QID 14 Days Admelog (Insulin Lispro) 100 Unit/1 Ml Vial 0 Units SQ TIDWMEALS 30 Days Culturelle (Lactobacillus Rhamnosus Gg) 1 Each Cap.sprink 1 Cap PO BID 30 Days Metamucil Fiber Singles Packet (Psyllium Husk/Aspartame) 3.4 Gm Powd.pack 1 Pkt PO QHS 30 Days Dok (Docusate Sodium) 100 Mg Capsule 100 Mg PO PRN BID PRN 30 Days Olanzapine Odt (Olanzapine) 5 Mg Tab.rapdis 5 Mg PO PRN BID PRN 14 Days Tylenol (Acetaminophen) 325 Mg Tablet 650 Mg PO PRN Q4HRS PRN 30 Days Combivent Respimat Inhal (Ipratropium/Albuterol Sulfate) 4 Gm Aer.w.adap 2 Inh IH QID 30 Days Reported Viberzi (Eluxadoline) 75 Mg Tablet 75 Mg PO BID Trazodone Hcl 50 Mg Tablet 1 Tab PO QHS Celexa (Citalopram Hydrobromide) 20 Mg Tablet 1 Tab PO DAILY Zofran (Ondansetron Hcl) 4 Mg Tablet 1 Tab PO PRN Q4HRS PRN Lisinopril 20 Mg Tablet 1 Tab PO DAILY Nystatin 15 Gm Powder 1 Kia TP BID Vesicare (Solifenacin Succinate) 10 Mg Tablet 1 Tab PO DAILY Flomax (Tamsulosin Hcl) 0.4 Mg Cap.er.24h 1 Cap PO HS Allergies Allergies: Coded Allergies: codeine (Verified Allergy, Intermediate, TOLERATES MORPHINE, 02/06/20) TOLERATES MORPHINE I S O L A T I O N *CONTACT* (Verified Allergy, Unknown, 06/14/20) C Diff meperidine (Verified Adverse Reaction, Intermediate, Nausea and Vomiting, 02/06/20) ROS Review of System Unable to obtain due to patient oriented to person only Physical Exam General: Alert, Cooperative, No acute distress HEENT: Atraumatic, PERRLA, EOMI, Mucous membr. moist/pink Lungs: Other (Bilateral wheezing and crackles) Heart: S1S2, RRR, no thrills, no rubs, no gallops, no murmurs Abdomen: Soft, No tenderness, No hepatosplenomegaly, No masses, Other (Hyperactive bowel sounds) Rectal Exam: other (gluteal ulcers bilaterally) Extremities: Other (Right AKA stump with redness, ulcer, minimal skin breakdown) Skin: Other (Gluteal and right AKA ulcers) Neuro: Normal speech Psych/Mental Status: Other (AOx1) Vitals Vitals Vital Signs Date Time Temp Pulse Resp B/P (MAP) Pulse Ox O2 Delivery O2 Flow Rate FiO2 01/01/21 06:37 92 20 145/70 (95) 97 High Flow Nasal Cannula 4.0 01/01/21 03:52 98.0 98.0 Labs Labs Laboratory Tests Test 01/01/21 02:45 01/01/21 03:15 White Blood Count 11.3 x10^3/uL (4.0-11.0) Red Blood Count 4.21 x10^6/uL (3.50-5.40) Hemoglobin 12.7 g/dL (12.0-15.5) Hematocrit 37.1 % (36.0-47.0) Mean Corpuscular Volume 88 fL (79-100) Mean Corpuscular Hemoglobin 30 pg (25-35) Mean Corpuscular Hemoglobin Concent 34 g/dL (31-37) Red Cell Distribution Width 13.8 % (11.5-14.5) Platelet Count 195 x10^3/uL (140-400) Neutrophils (%) (Auto) 90 % (31-73) Lymphocytes (%) (Auto) 7 % (24-48) Monocytes (%) (Auto) 2 % (0-9) Eosinophils (%) (Auto) 0 % (0-3) Basophils (%) (Auto) 0 % (0-3) Neutrophils # (Auto) 10.2 x10^3/uL (1.8-7.7) Lymphocytes # (Auto) 0.8 x10^3/uL (1.0-4.8) Monocytes # (Auto) 0.3 x10^3/uL (0.0-1.1) Eosinophils # (Auto) 0.0 x10^3/uL (0.0-0.7) Basophils # (Auto) 0.0 x10^3/uL (0.0-0.2) Segmented Neutrophils % 82 % (35-66) Band Neutrophils % 1 % (0-9) Lymphocytes % 13 % (24-48) Monocytes % 4 % (0-10) Platelet Estimate Adequate (ADEQUATE) D-Dimer (Mariana) 6.32 ug/mlFEU (0.00-0.50) Sodium Level 139 mmol/L (136-145) Potassium Level 3.9 mmol/L (3.5-5.1) Chloride Level 105 mmol/L (98-107) Carbon Dioxide Level 27 mmol/L (21-32) Anion Gap 7 (6-14) Blood Urea Nitrogen 16 mg/dL (7-20) Creatinine 0.8 mg/dL (0.6-1.0) Estimated GFR (Cockcroft-Gault) 70.9 BUN/Creatinine Ratio 20 (6-20) Glucose Level 155 mg/dL (70-99) Lactic Acid Level 1.2 mmol/L (0.4-2.0) Calcium Level 8.1 mg/dL (8.5-10.1) Phosphorus Level 1.9 mg/dL (2.6-4.7) Magnesium Level 1.9 mg/dL (1.8-2.4) Total Bilirubin 0.5 mg/dL (0.2-1.0) Aspartate Amino Transf (AST/SGOT) 100 U/L (15-37) Alanine Aminotransferase (ALT/SGPT) 28 U/L (14-59) Alkaline Phosphatase 129 U/L (46-116) Troponin I Quantitative < 0.017 ng/mL (0.000-0.055) KJ-Uud-V-Type Natriuretic Peptide 1114 pg/mL (0-124) Total Protein 7.2 g/dL (6.4-8.2) Albumin 2.3 g/dL (3.4-5.0) Albumin/Globulin Ratio 0.5 (1.0-1.7) Influenza Type A Antigen Negative (NEGATIVE) Influenza Type B Antigen Negative (NEGATIVE) Urine Collection Type U cath Urine Color Yellow Urine Clarity Clear Urine pH 6.0 (<5.0-8.0) Urine Specific [place] 1.020 (1.000-1.030) Urine Protein 100 mg/dL (NEG-TRACE) Urine Glucose (UA) Negative mg/dL (NEG) Urine Ketones (Stick) Trace mg/dL (NEG) Urine Blood Negative (NEG) Urine Nitrite Negative (NEG) Urine Bilirubin Negative (NEG) Urine Urobilinogen Dipstick 1.0 mg/dL (0.2 mg/dL) Urine Leukocyte Esterase Small (NEG) Urine RBC Occ /HPF (0-2) Urine WBC 11-20 /HPF (0-4) Urine Squamous Epithelial Cells Few /LPF Urine Bacteria Moderate /HPF (0-FEW) Laboratory Tests Test 01/01/21 02:45 01/01/21 03:15 White Blood Count 11.3 x10^3/uL (4.0-11.0) Red Blood Count 4.21 x10^6/uL (3.50-5.40) Hemoglobin 12.7 g/dL (12.0-15.5) Hematocrit 37.1 % (36.0-47.0) Mean Corpuscular Volume 88 fL (79-100) Mean Corpuscular Hemoglobin 30 pg (25-35) Mean Corpuscular Hemoglobin Concent 34 g/dL (31-37) Red Cell Distribution Width 13.8 % (11.5-14.5) Platelet Count 195 x10^3/uL (140-400) Neutrophils (%) (Auto) 90 % (31-73) Lymphocytes (%) (Auto) 7 % (24-48) Monocytes (%) (Auto) 2 % (0-9) Eosinophils (%) (Auto) 0 % (0-3) Basophils (%) (Auto) 0 % (0-3) Neutrophils # (Auto) 10.2 x10^3/uL (1.8-7.7) Lymphocytes # (Auto) 0.8 x10^3/uL (1.0-4.8) Monocytes # (Auto) 0.3 x10^3/uL (0.0-1.1) Eosinophils # (Auto) 0.0 x10^3/uL (0.0-0.7) Basophils # (Auto) 0.0 x10^3/uL (0.0-0.2) Segmented Neutrophils % 82 % (35-66) Band Neutrophils % 1 % (0-9) Lymphocytes % 13 % (24-48) Monocytes % 4 % (0-10) Platelet Estimate Adequate (ADEQUATE) D-Dimer (Mariana) 6.32 ug/mlFEU (0.00-0.50) Sodium Level 139 mmol/L (136-145) Potassium Level 3.9 mmol/L (3.5-5.1) Chloride Level 105 mmol/L (98-107) Carbon Dioxide Level 27 mmol/L (21-32) Anion Gap 7 (6-14) Blood Urea Nitrogen 16 mg/dL (7-20) Creatinine 0.8 mg/dL (0.6-1.0) Estimated GFR (Cockcroft-Gault) 70.9 BUN/Creatinine Ratio 20 (6-20) Glucose Level 155 mg/dL (70-99) Lactic Acid Level 1.2 mmol/L (0.4-2.0) Calcium Level 8.1 mg/dL (8.5-10.1) Phosphorus Level 1.9 mg/dL (2.6-4.7) Magnesium Level 1.9 mg/dL (1.8-2.4) Total Bilirubin 0.5 mg/dL (0.2-1.0) Aspartate Amino Transf (AST/SGOT) 100 U/L (15-37) Alanine Aminotransferase (ALT/SGPT) 28 U/L (14-59) Alkaline Phosphatase 129 U/L (46-116) Troponin I Quantitative < 0.017 ng/mL (0.000-0.055) WB-Igx-X-Type Natriuretic Peptide 1114 pg/mL (0-124) Total Protein 7.2 g/dL (6.4-8.2) Albumin 2.3 g/dL (3.4-5.0) Albumin/Globulin Ratio 0.5 (1.0-1.7) Influenza Type A Antigen Negative (NEGATIVE) Influenza Type B Antigen Negative (NEGATIVE) Urine Collection Type U cath Urine Color Yellow Urine Clarity Clear Urine pH 6.0 (<5.0-8.0) Urine Specific [place] 1.020 (1.000-1.030) Urine Protein 100 mg/dL (NEG-TRACE) Urine Glucose (UA) Negative mg/dL (NEG) Urine Ketones (Stick) Trace mg/dL (NEG) Urine Blood Negative (NEG) Urine Nitrite Negative (NEG) Urine Bilirubin Negative (NEG) Urine Urobilinogen Dipstick 1.0 mg/dL (0.2 mg/dL) Urine Leukocyte Esterase Small (NEG) Urine RBC Occ /HPF (0-2) Urine WBC 11-20 /HPF (0-4) Urine Squamous Epithelial Cells Few /LPF Urine Bacteria Moderate /HPF (0-FEW) Images Images CT angiography chest with contrast. CT abdomen and pelvis with contrast: Chest findings: Mild tortuosity of the thoracic aorta. Ascending aorta diameter 3.2 cm. No thoracic aortic aneurysm or dissection. Calcified plaque left coronary artery and of the descending thoracic aorta. Mild cardiomegaly. Esophagus unremarkable. No enlarged adenopathy in the chest. No pulmonary artery emboli evident. There is respiratory motion artifact resulting in misregistra tion of the peripheral lobar pulmonary arteries may decrease sensitivity to detect small peripheral lobar emboli. Trachea and bronchi are unremarkable. There are heterogeneous bilateral pulmonary groundglass and consolidated opacities. No pulmonary interstitial edema. No pleural effusions. Bones are unremarkable. Abdomen findings: Hypodense liver likely fatty. Cholecystectomy. Atrophy of the pancreas. 3 cm duodenal diverticulum at the head of the pancreas. Bilateral renal parapelvic cysts. Adrenals and spleen are unremarkable. Aortoiliac artery calcified plaque. No bowel obstruction. Appendix is absent. There is luminal collapse and wall thickening with mild surrounding hypervascularity from the cecum the transverse colon and at the rectosigmoid colon some spurring of the descending colon. Aortoiliac artery calcified plaque. No abdominal fluid or adenopathy. Lumbar scoliosis and disc disease. Pelvis findings: Rectosigmoid hypervascular mucosal enhancement and wall thickening. Bladder, uterus, ovaries and bones are unremarkable IMPRESSION: 1. No pulmonary artery emboli. 2. Extensive pulmonary opacities most likely the sequela of viral pneumonia given history of Covid infection. 3. Colitis. VTE Prophylaxis Ordered VTE Prophylaxis Devices: Yes VTE Pharmacological Prophylaxi: Yes Assessment/Plan Assessment/Plan A/P: Acute respiratory failure with hypoxia - due to COVID 19 pneumonia, steroids Diarrhea - possibly recurrent C. difficile infection. Abnormal CXR - has a chronic cough, not clear if this is pneumonia. Have been treating as gram negative given her risk of aspiration. History of diabetes mellitus type 2 - sliding scale insulin while on steroids History of hypertension - cont meds COPD - combivent inhaler S/P Right AKA Debilitated Hypophosphatemia - replace IV Concern for caregiver burden Gluteal ulcer - fissure Right AKA - stump redness, no discharge or discrete ulcer on my examination FEN - Regular diet PPX - lovenox CODE - FULL Dispo - inpatient Justifications for Admission Other Justification diarrhea and UTI HELEN HUMMEL MD Jan 01, 2021 07:46
[2021-01-01] MEDS ORDERED: MAGNESIUM SULFATE 1GM 100 ML IV ONE (08:00)
[2021-01-01] MEDS ORDERED: REMDESIVIR LOAD in IV NORMAL SALINE 250ML TV IV ONE (09:00)
[2021-01-01] MEDS ORDERED: NON FORMULARY ITEM (Ipratropium/Albuterol Sulfate (Combivent Respimat Inhal) 2 INH) IH SCH (09:00)
[2021-01-01] MEDS: POTASSIUM PHOS,M-BASIC-D-BASIC 13.6 MMOL in IV NORMAL SALINE 250ML 250 ML IV SCH ×2 (09:34→15:24)
[2021-01-01] MEDS: ENOXAPARIN 40 MG/0.4 ML SYRINGE. SQ SCH ×2 (09:38→21:06)
[2021-01-01] MEDS: CITALOPRAM 20 MG TABLET. PO SCH (09:39)
[2021-01-01] MEDS: ZINC SULFATE 220 MG CAPSULE. PO SCH (09:41)
[2021-01-01] MEDS: THIAMINE 100 MG TABLET. PO SCH (09:41)
[2021-01-01] MEDS: LISINOPRIL 20 MG TABLET PO SCH (09:42)
[2021-01-01] MEDS: NYSTATIN TOPICAL POWDER 15GM BOTTLE. TP SCH ×2 (09:45→21:00)
[2021-01-01] MEDS: INSULIN LISPRO 300 UNITS/3 ML VIAL. SQ SCH ×2 (13:02→17:00)
--- NOTE | 2021-01-01 17:22 | NUR ---
Wound/Ostomy Care Wound Type/Assessment: Patient seen per wound care consult in the ED. See wound assessment. Patient is well known to us from the wound clinic. She has been seen in the clinic for the right AKA wound. Patient still has DFU to the right AKA and a stage III PU to the coccyx. Wounds cleansed, assessed, measured, pictured. Patient had large loose stool, patient cleaned and chux and brief changed. Treatment Recommendations/Plan: Recommendations for Aquacel ag packed to Right AKA and cover with foam dressing, change every other day. Calazime cream to the coccyx. Patient has nystatin powder for the groins/folds/pannus. All dressings applied. Education provided: Patient very CHITIMACHA unable to educate, but patient is very familiar with wound care. Offloading surface/device: Patient should be on a P-500 bed when transferred. Patient to be turned every 2 hours and use purple wedge. Recommended Referrals/Tests: N/A Discharge Recommendations for dressings: Dressing change instructions left in room to take when transfers, order a P-500 bed tomorrow for this patient. Bed lowered and call light in reach. Spoke with Betsey ROMANO regarding POC. wound care will follow up on 01/08/21.
[2021-01-01 19:30] VITALS: BP 180/92
[2021-01-01] MEDS: traZODone 50 MG TABLET. PO SCH (21:06)
[2021-01-01 23:00] VITALS: BP 186/111
[2021-01-02 03:00] VITALS: BP 174/112
[2021-01-02] MEDS: ACETAMINOPHEN 325 MG TABLET. PO PRN (03:44)
[2021-01-02] MEDS: ONDANSETRON PF 4 MG/2 ML VIAL. IVP PRN (05:11)
[2021-01-02 06:15] LABS: BASO % 0 % (0-3); EOS % 0 % (0-3); HEMATOCRIT 38.9 % (36.0-47.0); HEMOGLOBIN 13.1 g/dL (12.0-15.5); LYMPH # 0.9 x10^3/uL (1.0-4.8); LYMPH % 7 % (24-48); MEAN CORPUSCULAR HEMOGLOBIN 30 pg (25-35); MEAN CORPUSCULAR HGB CONC 34 g/dL (31-37); MEAN CORPUSCULAR VOLUME 89 fL (79-100); MONO # 0.8 x10^3/uL (0.0-1.1); MONO % 6 % (0-9); NEUT # 11.1 x10^3/uL (1.8-7.7); NEUT % 87 % (31-73); PLATELET COUNT 249 x10^3/uL (140-400); RED BLOOD COUNT 4.36 x10^6/uL (3.50-5.40); RED CELL DISTRIBUTION WIDTH 14.7 % (11.5-14.5); WHITE BLOOD COUNT 12.8 x10^3/uL (4.0-11.0)
[2021-01-02 06:36] LABS: ALBUMIN 2.4 g/dL (3.4-5.0); ALBUMIN/GLOBULIN RATIO 0.5 (1.0-1.7); CALCIUM 8.4 mg/dL (8.5-10.1); CREATININE 0.9 mg/dL (0.6-1.0); GFR 61.9; TOTAL BILIRUBIN 0.4 mg/dL (0.2-1.0); TOTAL PROTEIN 7.1 g/dL (6.4-8.2)
[2021-01-02 07:00] VITALS: BP 136/62
[2021-01-02 07:13] LABS: POTASSIUM 4.5 mmol/L (3.5-5.1)
--- NOTE | 2021-01-02 08:34 | PDOC ---
[facility] PROGRESS NOTE Date of Service DOS: DATE: 01/02/21 TIME: 08:33 Chief Complaint Chief Complaint A/P: Acute respiratory failure with hypoxia - due to COVID 19 pneumonia, steroids Diarrhea - possibly recurrent C. difficile infection. Abnormal CXR - has a chronic cough, not clear if this is pneumonia. Have been treating as gram negative given her risk of aspiration. History of diabetes mellitus type 2 - sliding scale insulin while on steroids History of hypertension - cont meds COPD - combivent inhaler S/P Right AKA Debilitated Hypophosphatemia - replace IV Concern for caregiver burden Gluteal ulcer - fissure Right AKA - stump redness, no discharge or discrete ulcer on my examination FEN - Regular diet PPX - lovenox CODE - FULL Dispo - inpatient History of Present Illness History of Present Illness Ms Alexis is a 70yo F w/ PMHx COPD, Diabetes-Type II, GERD, Hypertension, [place], dementia, 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 Patient has been sick with Covid type symptoms for the past week with shortness of breath, progressive weakness large amounts of diarrhea that are foul-smelling decreased appetite. History provided by patient's daughter via phone notes the entire family is isolating at home from being Covid positive, patient is able to say her right leg hurts but otherwise despite hearing amplification does not give any other history and most of the history is given. Daughter over the telephone. Baseline mentation status currently of alert and oriented x1. 2 family member tested positive for Covid19 approximately 1 week ago. Patient is not vaccinated. EMS noted patient's oxygen saturation was 82% and was placed on 4 L nasal cannula with improvement of O2 sats to 92 to 93%. CTA chest abdomen pelvis with bilateral pulmonary opacities and colitis, no abscess noted. Negative for pulmonary embolism WBC 11.3, Hb 12.7, platelets 195, D-dimer 6.32, NA 139, K3 0.9 mmol BUN 16, CR 0.4 glucose 135 calcium 8.1, Phos 1.9, magnesium 1.9, bilirubin 0.5, AST 100, ALT 28, alk phos 129 NT proBNP 1114, albumin 2.3, lactic acid 1.2, rapid flu negative urinalysis with small leuk esterase. Rapid COVID 19 positive Admitted for further care Still hypoxic poor appetite. Replace Yamilka and lost IV access and unable to keep getting better IV access does need remdesivir and IV steroids. Will need PICC Vitals/I&O Vitals/I&O: Vital Signs Date Time Temp Pulse Resp B/P (MAP) Pulse Ox O2 Delivery O2 Flow Rate FiO2 01/02/21 03:00 102.4 124 20 174/112 (132) 87 Nasal Cannula 5.0 102.4 I & O 01/01/21 01/01/21 01/02/21 15:00 23:00 07:00 Intake Total 200 ml 100 ml 160 ml Balance 200 ml 100 ml 160 ml Physical Exam General: Alert, Cooperative, No acute distress Lungs: Clear Abdomen: Soft, No tenderness, No hepatosplenomegaly, No masses, Other (Hyperactive bowel sounds) Extremities: Other (Right AKA stump with redness, ulcer, minimal skin breakdown) Skin: Other (Gluteal and right AKA ulcers) Labs Labs: Laboratory Tests Test 01/01/21 12:51 01/01/21 18:35 01/01/21 20:47 01/02/21 04:40 Glucose (Fingerstick) 193 mg/dL (70-99) 168 mg/dL (70-99) 144 mg/dL (70-99) White Blood Count 12.8 x10^3/uL (4.0-11.0) Red Blood Count 4.36 x10^6/uL (3.50-5.40) Hemoglobin 13.1 g/dL (12.0-15.5) Hematocrit 38.9 % (36.0-47.0) Mean Corpuscular Volume 89 fL (79-100) Mean Corpuscular Hemoglobin 30 pg (25-35) Mean Corpuscular Hemoglobin Concent 34 g/dL (31-37) Red Cell Distribution Width 14.7 % (11.5-14.5) Platelet Count 249 x10^3/uL (140-400) Neutrophils (%) (Auto) 87 % (31-73) Lymphocytes (%) (Auto) 7 % (24-48) Monocytes (%) (Auto) 6 % (0-9) Eosinophils (%) (Auto) 0 % (0-3) Basophils (%) (Auto) 0 % (0-3) Neutrophils # (Auto) 11.1 x10^3/uL (1.8-7.7) Lymphocytes # (Auto) 0.9 x10^3/uL (1.0-4.8) Monocytes # (Auto) 0.8 x10^3/uL (0.0-1.1) Eosinophils # (Auto) 0.0 x10^3/uL (0.0-0.7) Basophils # (Auto) 0.0 x10^3/uL (0.0-0.2) Sodium Level 142 mmol/L (136-145) Potassium Level 4.5 mmol/L (3.5-5.1) Chloride Level 104 mmol/L (98-107) Carbon Dioxide Level 23 mmol/L (21-32) Anion Gap 15 (6-14) Blood Urea Nitrogen 21 mg/dL (7-20) Creatinine 0.9 mg/dL (0.6-1.0) Estimated GFR (Cockcroft-Gault) 61.9 BUN/Creatinine Ratio 23 (6-20) Glucose Level 130 mg/dL (70-99) Calcium Level 8.4 mg/dL (8.5-10.1) Total Bilirubin 0.4 mg/dL (0.2-1.0) Aspartate Amino Transf (AST/SGOT) 78 U/L (15-37) Alanine Aminotransferase (ALT/SGPT) 28 U/L (14-59) Alkaline Phosphatase 117 U/L (46-116) Total Protein 7.1 g/dL (6.4-8.2) Albumin 2.4 g/dL (3.4-5.0) Albumin/Globulin Ratio 0.5 (1.0-1.7) Test 01/02/21 07:24 Glucose (Fingerstick) 210 mg/dL (70-99) Assessment and Plan Assessmemt and Plan Problems Medical Problems: (1) Person under investigation for COVID-19 Status: Acute Comment Review of Relevant I have reviewed the following items marcio (where applicable) has been applied. Medications: Current Medications Medications (Trade) Dose Ordered Sig/Haim Route PRN Reason Start Time Stop Time Status Last Admin Dose Admin Potassium Phosphate 13.6 mmol/Sodium Chloride 254.5333 ml @ 127.... Q2H IV 01/01/21 09:00 01/01/21 12:59 DC 01/01/21 15:24 Remdesivir 200 mg/ Sodium Chloride 210 ml @ 210 mls/hr 1X ONCE IV 01/01/21 09:00 01/01/21 09:59 DC 01/01/21 12:48 Amlodipine Besylate (Norvasc) 2.5 mg DAILY PO 01/01/21 09:00 01/01/21 09:40 Citalopram Hydrobromide (CeleXA) 20 mg DAILY PO 01/01/21 09:00 01/01/21 09:39 Lisinopril (Prinivil) 20 mg DAILY PO 01/01/21 09:00 01/01/21 09:42 Nystatin (Nystop) 1 paloma BID TP 01/01/21 09:00 01/01/21 09:45 Trazodone HCl (Desyrel) 50 mg QHS PO 01/01/21 21:00 01/01/21 21:06 Insulin Human Lispro (HumaLOG) 0-9 UNITS TIDWMEALS SQ 01/01/21 12:00 01/01/21 13:02 Zinc Sulfate (Orazinc) 220 mg DAILY PO 01/01/21 09:00 01/01/21 09:41 Thiamine Mononitrate (Vitamin B-1) 100 mg DAILY PO 01/01/21 09:00 01/01/21 09:41 Enoxaparin Sodium (Lovenox 40mg Syringe) 40 mg Q12HR SQ 01/01/21 09:00 01/01/21 21:06 Justifications for Admission Other Justification diarrhea and UTI HELEN HUMMEL MD Jan 02, 2021 08:34
[2021-01-02] MEDS ORDERED: REMDESIVIR 100mg in NORMAL SALINE 250ML X 4 DAYS IV SCH (09:00)
[2021-01-02] MEDS ORDERED: IV NORMAL SALINE 1000ML BAG 1,000 ML IV ONE (09:00)
[2021-01-02] MEDS: NYSTATIN TOPICAL POWDER 15GM BOTTLE. TP SCH ×2 (09:00→20:27)
--- NOTE | 2021-01-02 10:32 | NUR ---
Pain reassessment not completed by this RN. Reassessment from shift mgr. Refer to EMAR for further details. Shift pain assessment completed.
[2021-01-02] MEDS: THIAMINE 100 MG TABLET. PO SCH (10:36)
[2021-01-02] MEDS: CITALOPRAM 20 MG TABLET. PO SCH (10:36)
[2021-01-02] MEDS: ZINC SULFATE 220 MG CAPSULE. PO SCH (10:36)
[2021-01-02] MEDS: LISINOPRIL 20 MG TABLET PO SCH (10:36)
[2021-01-02] MEDS: ENOXAPARIN 40 MG/0.4 ML SYRINGE. SQ SCH ×2 (10:37→20:14)
[2021-01-02] MEDS: DEXAMETHASONE SOD PHOS 4 MG/ML VIAL IVP SCH (10:37)
[2021-01-02] MEDS: INSULIN LISPRO 300 UNITS/3 ML VIAL. SQ SCH ×4 (10:40→17:28)
[2021-01-02 11:00] VITALS: BP 152/58
--- NOTE | 2021-01-02 13:00 | NUR ---
SW following. Discussed with RN, pt from home with granddaughter, 6L (does not use oxygen at home), dysphagia I. COVID-19 positive. Pt is bed bound at home and granddaughter takes care of her, pt's granddaughter is also admitted with COVID. Wound care following. SW will continue to follow.
[2021-01-02 15:00] VITALS: BP 157/52
[2021-01-02 19:00] VITALS: BP 195/109
[2021-01-02] MEDS: traZODone 50 MG TABLET. PO SCH (20:14)
[2021-01-02 23:00] VITALS: BP 176/113
--- NOTE | 2021-01-02 23:15 | RAD ---
AP chest x-ray HISTORY: PICC line placement. COMPARISON: CT chest January 01, 2021 FINDINGS: Left PICC line tip proximal right atrium. Cardiomegaly stable. Tortuosity the thoracic aort ic arch radiographically stable. No pneumothorax. No pleural effusions. Extensive bilateral pulmonary interstitial and alveolar infiltrates grossly stable. Bones are unremarkable. IMPRESSION: Left PICC line tip proximal right atrium. Cardiomegaly stable. Diffuse pulmonary intersti tial and alveolar infiltrates grossly stable. Electronically signed by: Seth Camp MD (01/02/2021 11:12 PM) [facility]
[2021-01-03 03:00] VITALS: BP 180/107
--- NOTE | 2021-01-03 04:16 | NUR ---
January 02 900 Remdesivir scanned and hung but not infused d/t pt losing IV access. Unable to undo administration. Alona in pharmacy notified and will order additional bag so pt will get all 4 doses.
--- NOTE | 2021-01-03 04:25 | NUR ---
Dr Prabhakar notified of elevated BP. No new orders at this time.
[2021-01-03] MEDS ORDERED: hydrALAZINE 20 MG/ML VIAL. IVP PRN (06:15)
[2021-01-03 07:00] VITALS: BP 155/107
[2021-01-03 08:28] LABS: ALBUMIN 2.1 g/dL (3.4-5.0); ALBUMIN/GLOBULIN RATIO 0.4 (1.0-1.7); CALCIUM 8.4 mg/dL (8.5-10.1); CREATININE 0.8 mg/dL (0.6-1.0); GFR 70.9; TOTAL BILIRUBIN 0.3 mg/dL (0.2-1.0); TOTAL PROTEIN 6.9 g/dL (6.4-8.2)
[2021-01-03] MEDS: INSULIN LISPRO 300 UNITS/3 ML VIAL. SQ SCH ×3 (09:45→18:00)
[2021-01-03] MEDS: REMDESIVIR 100mg in NORMAL SALINE 250ML X 4 DAYS IV SCH (09:46)
[2021-01-03] MEDS: THIAMINE 100 MG TABLET. PO SCH (09:46)
[2021-01-03] MEDS: ZINC SULFATE 220 MG CAPSULE. PO SCH (09:46)
[2021-01-03] MEDS: guaiFENesin DM 200MG/20MG 10 ML SYRUP PO PRN ×2 (09:46→22:03)
[2021-01-03] MEDS: NYSTATIN TOPICAL POWDER 15GM BOTTLE. TP SCH ×2 (09:46→22:05)
[2021-01-03] MEDS: CITALOPRAM 20 MG TABLET. PO SCH (09:47)
[2021-01-03] MEDS: LISINOPRIL 20 MG TABLET PO SCH (09:47)
[2021-01-03] MEDS: DEXAMETHASONE SOD PHOS 4 MG/ML VIAL IVP SCH (09:47)
[2021-01-03] MEDS: ENOXAPARIN 40 MG/0.4 ML SYRINGE. SQ SCH ×2 (09:48→22:04)
[2021-01-03 11:00] VITALS: BP 166/95
--- NOTE | 2021-01-03 11:19 | PDOC ---
[facility] PROGRESS NOTE Date of Service DOS: DATE: 01/03/21 TIME: 11:18 Chief Complaint Chief Complaint A/P: Acute respiratory failure with hypoxia - due to COVID 19 pneumonia, steroids Diarrhea - possibly recurrent C. difficile infection. Abnormal CXR - has a chronic cough, not clear if this is pneumonia. Have been treating as gram negative given her risk of aspiration. 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 Patient has been sick with Covid type symptoms for the past week with shortness of breath, progressive weakness large amounts of diarrhea that are foul-smelling decreased appetite. History provided by patient's daughter via phone notes the entire family is isolating at home from being Covid positive, patient is able to say her right leg hurts but otherwise despite hearing amplification does not give any other history and most of the history is given. Daughter over the telephone. Baseline mentation status currently of alert and oriented x1. 2 family member tested positive for Covid19 approximately 1 week ago. Patient is not vaccinated. EMS noted patient's oxygen saturation was 82% and was placed on 4 L nasal cannula with improvement of O2 sats to 92 to 93%. CTA chest abdomen pelvis with bilateral pulmonary opacities and colitis, no abscess noted. Negative for pulmonary embolism WBC 11.3, Hb 12.7, platelets 195, D-dimer 6.32, NA 139, K3 0.9 mmol BUN 16, CR 0.4 glucose 135 calcium 8.1, Phos 1.9, magnesium 1.9, bilirubin 0.5, AST 100, ALT 28, alk phos 129 NT proBNP 1114, albumin 2.3, lactic acid 1.2, rapid flu negative urinalysis with small leuk esterase. Rapid COVID 19 positive Admitted for further care 01/02: Still hypoxic poor appetite. Replaced phos and lost IV access and unable to keep getting better IV access does need remdesivir and IV steroids. S/p PICC Labs slightly improved. Still hypoxic. No complaints. PICC working well. Still requiring 4 L nasal cannula oxygen with O2 saturations 80 to 94%. Vitals/I&O Vitals/I&O: Vital Signs Date Time Temp Pulse Resp B/P (MAP) Pulse Ox O2 Delivery O2 Flow Rate FiO2 01/03/21 09:47 91 155/107 01/03/21 07:00 98.6 18 90 Nasal Cannula 7.0 98.6 I & O 01/02/21 01/02/21 01/03/21 15:00 23:00 07:00 Intake Total 340 ml 200 ml Output Total 0 ml Balance 340 ml 200 ml Physical Exam General: Alert, Cooperative, No acute distress Lungs: Clear Abdomen: Soft, No tenderness, No hepatosplenomegaly, No masses, Other (Hyperactive bowel sounds) Extremities: Other (Right AKA stump with redness, ulcer, minimal skin breakdown) Skin: Other (Gluteal and right AKA ulcers) Labs Labs: Laboratory Tests Test 01/02/21 11:42 01/02/21 16:45 01/02/21 20:46 01/03/21 06:50 Glucose (Fingerstick) 211 mg/dL (70-99) 248 mg/dL (70-99) 229 mg/dL (70-99) Sodium Level 141 mmol/L (136-145) Potassium Level 4.0 mmol/L (3.5-5.1) Chloride Level 105 mmol/L (98-107) Carbon Dioxide Level 27 mmol/L (21-32) Anion Gap 9 (6-14) Blood Urea Nitrogen 28 mg/dL (7-20) Creatinine 0.8 mg/dL (0.6-1.0) Estimated GFR (Cockcroft-Gault) 70.9 BUN/Creatinine Ratio 35 (6-20) Glucose Level 186 mg/dL (70-99) Calcium Level 8.4 mg/dL (8.5-10.1) Total Bilirubin 0.3 mg/dL (0.2-1.0) Aspartate Amino Transf (AST/SGOT) 50 U/L (15-37) Alanine Aminotransferase (ALT/SGPT) 16 U/L (14-59) Alkaline Phosphatase 90 U/L (46-116) Total Protein 6.9 g/dL (6.4-8.2) Albumin 2.1 g/dL (3.4-5.0) Albumin/Globulin Ratio 0.4 (1.0-1.7) Test 01/03/21 08:32 Glucose (Fingerstick) 178 mg/dL (70-99) Assessment and Plan Assessmemt and Plan Problems Medical Problems: (1) Person under investigation for COVID-19 Status: Acute Comment Review of Relevant I have reviewed the following items marcio (where applicable) has been applied. Medications: Current Medications Medications (Trade) Dose Ordered Sig/Haim Route PRN Reason Start Time Stop Time Status Last Admin Dose Admin Remdesivir 100 mg/ Sodium Chloride 230 ml @ 460 mls/hr Q24H IV 01/03/21 09:00 01/06/21 09:29 01/03/21 09:46 Justifications for Admission Other Justification diarrhea and UTI HELEN HUMMEL MD Jan 03, 2021 11:19
[2021-01-03 15:00] VITALS: BP 162/91
[2021-01-03] MEDS: cefTRIAXone IV Push 1 GM VIAL. IVP SCH (16:37)
[2021-01-03 19:00] VITALS: BP 173/100
[2021-01-03] MEDS: traZODone 50 MG TABLET. PO SCH (22:04)
[2021-01-03 23:00] VITALS: BP 181/102
[2021-01-03] MEDS: ONDANSETRON PF 4 MG/2 ML VIAL. IVP PRN (23:30)
[2021-01-04 03:00] VITALS: BP 147/86
[2021-01-04 06:48] LABS: ALBUMIN 2.1 g/dL (3.4-5.0); ALBUMIN/GLOBULIN RATIO 0.5 (1.0-1.7); CALCIUM 7.8 mg/dL (8.5-10.1); CREATININE 0.8 mg/dL (0.6-1.0); GFR 70.9; POTASSIUM 4.1 mmol/L (3.5-5.1); TOTAL BILIRUBIN 0.4 mg/dL (0.2-1.0); TOTAL PROTEIN 6.1 g/dL (6.4-8.2)
[2021-01-04 07:00] VITALS: BP 144/85
--- NOTE | 2021-01-04 08:50 | PDOC ---
[facility] [facility] PROGRESS NOTE Date of Service DOS: DATE: 01/04/21 TIME: 08:48 Chief Complaint Chief Complaint A/P: Acute respiratory failure with hypoxia - due to COVID 19 pneumonia, steroids, remdesivir Diarrhea - not recurrent C. difficile infection, likely covid 19 Sepsis - due to COVID 19 with pneumonia UTI - proteus and klebsiella on rocephin Abnormal CXR - has a chronic cough, clear this is pneumonia. Have been treating as gram negative given her risk of aspiration. History of diabetes mellitus type 2 - sliding scale insulin while on steroids History of hypertension - cont meds COPD - combivent inhaler S/P Right AKA Debilitated Hypophosphatemia - replace IV Concern for caregiver burden Gluteal ulcer - fissure Right AKA - stump redness, no discharge or discrete ulcer on my examination FEN - Regular diet PPX - lovenox CODE - FULL Dispo - inpatient History of Present Illness History of Present Illness Ms Alexis is a 70yo F w/ PMHx COPD, Diabetes-Type II, GERD, Hypertension, [place], dementia, 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 Patient has been sick with Covid type symptoms for the past week with shortness of breath, progressive weakness large amounts of diarrhea that are foul-smelling decreased appetite. History provided by patient's daughter via phone notes the entire family is isolating at home from being Covid positive, patient is able to say her right leg hurts but otherwise despite hearing amplification does not give any other history and most of the history is given. Daughter over the telephone. Baseline mentation status currently of alert and oriented x1. 2 family member tested positive for Covid19 approximately 1 week ago. Patient is not vaccinated. EMS noted patient's oxygen saturation was 82% and was placed on 4 L nasal cannula with improvement of O2 sats to 92 to 93%. CTA chest abdomen pelvis with bilateral pulmonary opacities and colitis, no abscess noted. Negative for pulmonary embolism WBC 11.3, Hb 12.7, platelets 195, D-dimer 6.32, NA 139, K3 0.9 mmol BUN 16, CR 0.4 glucose 135 calcium 8.1, Phos 1.9, magnesium 1.9, bilirubin 0.5, AST 100, ALT 28, alk phos 129 NT proBNP 1114, albumin 2.3, lactic acid 1.2, rapid flu negative urinalysis with small leuk esterase. Rapid COVID 19 positive Admitted for further care 01/02: Still hypoxic poor appetite. Replaced phos and lost IV access and unable to keep getting better IV access does need remdesivir and IV steroids. S/p PICC 01/03: Labs slightly improved. Still hypoxic. No complaints. PICC working well. Still requiring 4 L nasal cannula oxygen with O2 saturations 80 to 94%. 7 L nasal cannula today with saturations 96%. Appetite low. AST down to 47. tolerating meds well. Still feeling miserable Vitals/I&O Vitals/I&O: Vital Signs Date Time Temp Pulse Resp B/P (MAP) Pulse Ox O2 Delivery O2 Flow Rate FiO2 01/04/21 07:00 99.2 104 20 144/85 (104) 92 Nasal Cannula 7.0 99.2 I & O 01/03/21 01/03/21 01/04/21 15:00 23:00 07:00 Intake Total 100 ml 85 ml 320 ml Balance 100 ml 85 ml 320 ml Physical Exam General: Alert, Cooperative, No acute distress Lungs: Clear Abdomen: Soft, No tenderness, No hepatosplenomegaly, No masses, Other (Hyperactive bowel sounds) Extremities: Other (Right AKA stump with redness, ulcer, minimal skin breakdown) Skin: Other (Gluteal and right AKA ulcers) Labs Labs: Laboratory Tests Test 01/03/21 11:47 01/03/21 16:55 01/03/21 21:04 01/04/21 05:55 Glucose (Fingerstick) 208 mg/dL (70-99) 188 mg/dL (70-99) 256 mg/dL (70-99) Sodium Level 136 mmol/L (136-145) Potassium Level 4.1 mmol/L (3.5-5.1) Chloride Level 102 mmol/L (98-107) Carbon Dioxide Level 27 mmol/L (21-32) Anion Gap 7 (6-14) Blood Urea Nitrogen 25 mg/dL (7-20) Creatinine 0.8 mg/dL (0.6-1.0) Estimated GFR (Cockcroft-Gault) 70.9 BUN/Creatinine Ratio 31 (6-20) Glucose Level 211 mg/dL (70-99) Calcium Level 7.8 mg/dL (8.5-10.1) Total Bilirubin 0.4 mg/dL (0.2-1.0) Aspartate Amino Transf (AST/SGOT) 47 U/L (15-37) Alanine Aminotransferase (ALT/SGPT) 20 U/L (14-59) Alkaline Phosphatase 93 U/L (46-116) Total Protein 6.1 g/dL (6.4-8.2) Albumin 2.1 g/dL (3.4-5.0) Albumin/Globulin Ratio 0.5 (1.0-1.7) Test 01/04/21 08:09 Glucose (Fingerstick) 204 mg/dL (70-99) Assessment and Plan Assessmemt and Plan Problems Medical Problems: (1) Person under investigation for COVID-19 Status: Acute Comment Review of Relevant I have reviewed the following items marcio (where applicable) has been applied. Medications: Current Medications Medications (Trade) Dose Ordered Sig/Haim Route PRN Reason Start Time Stop Time Status Last Admin Dose Admin Remdesivir 100 mg/ Sodium Chloride 230 ml @ 460 mls/hr Q24H IV 01/03/21 09:00 01/06/21 09:29 01/03/21 09:46 Ceftriaxone Sodium (Rocephin) 1 gm Q24H IVP 01/03/21 16:00 01/03/21 16:37 Justifications for Admission Other Justification diarrhea and UTI HELEN HUMMEL MD Jan 04, 2021 08:50
[2021-01-04] MEDS: CITALOPRAM 20 MG TABLET. PO SCH (09:13)
[2021-01-04] MEDS: ZINC SULFATE 220 MG CAPSULE. PO SCH (09:13)
[2021-01-04] MEDS: guaiFENesin DM 200MG/20MG 10 ML SYRUP PO PRN (09:13)
[2021-01-04] MEDS: THIAMINE 100 MG TABLET. PO SCH (09:13)
[2021-01-04] MEDS: ENOXAPARIN 40 MG/0.4 ML SYRINGE. SQ SCH ×2 (09:13→21:04)
[2021-01-04] MEDS: LISINOPRIL 20 MG TABLET PO SCH (09:14)
[2021-01-04] MEDS: DEXAMETHASONE SOD PHOS 4 MG/ML VIAL IVP SCH (09:14)
[2021-01-04] MEDS: REMDESIVIR 100mg in NORMAL SALINE 250ML X 4 DAYS IV SCH (09:15)
[2021-01-04] MEDS: INSULIN LISPRO 300 UNITS/3 ML VIAL. SQ SCH ×3 (09:18→17:30)
[2021-01-04] MEDS: NYSTATIN TOPICAL POWDER 15GM BOTTLE. TP SCH ×2 (09:19→21:00)
[2021-01-04 11:00] VITALS: BP 127/61
--- NOTE | 2021-01-04 11:47 | NUR ---
SW following. Discussed with RN, pt from home with granddaughter, 7L (does not use oxygen at home), COVID-19 positive. Pt's granddaughter also has COVID and is in hospital. Pt has a UTI and wounds. Not ready for discharge. SW will continue to follow.
[2021-01-04 15:58] VITALS: BP_SYST 156; BP_SYST 186; BP_DIAS 98
[2021-01-04] MEDS: cefTRIAXone IV Push 1 GM VIAL. IVP SCH (17:03)
[2021-01-04 19:55] VITALS: BP 144/69
[2021-01-04] MEDS: traZODone 50 MG TABLET. PO SCH (21:04)
[2021-01-04 23:20] VITALS: BP 159/99
[2021-01-05 03:26] VITALS: BP 151/93
[2021-01-05 06:02] LABS: ALBUMIN 2.1 g/dL (3.4-5.0); ALBUMIN/GLOBULIN RATIO 0.5 (1.0-1.7); CALCIUM 8.3 mg/dL (8.5-10.1); CREATININE 0.8 mg/dL (0.6-1.0); GFR 70.9; POTASSIUM 4.3 mmol/L (3.5-5.1); TOTAL BILIRUBIN 0.4 mg/dL (0.2-1.0); TOTAL PROTEIN 6.6 g/dL (6.4-8.2)
[2021-01-05 07:00] VITALS: BP 145/84
[2021-01-05] MEDS: THIAMINE 100 MG TABLET. PO SCH (09:20)
[2021-01-05] MEDS: CITALOPRAM 20 MG TABLET. PO SCH (09:20)
[2021-01-05] MEDS: LISINOPRIL 20 MG TABLET PO SCH (09:20)
[2021-01-05] MEDS: ZINC SULFATE 220 MG CAPSULE. PO SCH (09:20)
[2021-01-05] MEDS: DEXAMETHASONE SOD PHOS 4 MG/ML VIAL IVP SCH (09:20)
[2021-01-05] MEDS: NYSTATIN TOPICAL POWDER 15GM BOTTLE. TP SCH ×2 (09:21→21:45)
[2021-01-05] MEDS: INSULIN LISPRO 300 UNITS/3 ML VIAL. SQ SCH ×3 (09:37→17:30)
[2021-01-05] MEDS: REMDESIVIR 100mg in NORMAL SALINE 250ML X 4 DAYS IV SCH (10:18)
[2021-01-05 11:00] VITALS: BP 130/72
[2021-01-05] MEDS: ENOXAPARIN 40 MG/0.4 ML SYRINGE. SQ SCH ×2 (12:47→21:42)
[2021-01-05 15:00] VITALS: BP 149/90
--- NOTE | 2021-01-05 15:13 | PDOC ---
[employer] [facility] PROGRESS NOTE Date of Service DOS: DATE: 01/05/21 TIME: 15:12 Chief Complaint Chief Complaint A/P: Acute respiratory failure with hypoxia - due to COVID 19 pneumonia, steroids, remdesivir Diarrhea - not recurrent C. difficile infection, likely covid 19 Sepsis - due to COVID 19 with pneumonia UTI - proteus and klebsiella on rocephin Abnormal CXR - has a chronic cough, clear this is pneumonia. Have been treating as gram negative given her risk of aspiration. History of diabetes mellitus type 2 - sliding scale insulin while on steroids History of hypertension - cont meds COPD - combivent inhaler S/P Right AKA Debilitated Hypophosphatemia - replace IV Concern for caregiver burden Gluteal ulcer - fissure Right AKA - stump redness, no discharge or discrete ulcer on my examination FEN - Regular diet PPX - lovenox CODE - FULL Dispo - inpatient History of Present Illness History of Present Illness Ms Alexis is a 70yo F w/ PMHx COPD, Diabetes-Type II, GERD, Hypertension, [place], dementia, 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 Patient has been sick with Covid type symptoms for the past week with shortness of breath, progressive weakness large amounts of diarrhea that are foul-smelling decreased appetite. History provided by patient's daughter via phone notes the entire family is isolating at home from being Covid positive, patient is able to say her right leg hurts but otherwise despite hearing amplification does not give any other history and most of the history is given. Daughter over the telephone. Baseline mentation status currently of alert and oriented x1. 2 family member tested positive for Covid19 approximately 1 week ago. Patient is not vaccinated. EMS noted patient's oxygen saturation was 82% and was placed on 4 L nasal cannula with improvement of O2 sats to 92 to 93%. CTA chest abdomen pelvis with bilateral pulmonary opacities and colitis, no abscess noted. Negative for pulmonary embolism WBC 11.3, Hb 12.7, platelets 195, D-dimer 6.32, NA 139, K3 0.9 mmol BUN 16, CR 0.4 glucose 135 calcium 8.1, Phos 1.9, magnesium 1.9, bilirubin 0.5, AST 100, ALT 28, alk phos 129 NT proBNP 1114, albumin 2.3, lactic acid 1.2, rapid flu negative urinalysis with small leuk esterase. Rapid COVID 19 positive Admitted for further care 01/02: Still hypoxic poor appetite. Replaced phos and lost IV access and unable to keep getting better IV access does need remdesivir and IV steroids. S/p PICC 01/03: Labs slightly improved. Still hypoxic. No complaints. PICC working well. Still requiring 4 L nasal cannula oxygen with O2 saturations 80 to 94%. 01/04: 7 L nasal cannula today with saturations 96%. Appetite low. AST down to 47. tolerating meds well. Still feeling miserable Afebrile. O2 saturations 92% on 7 L nasal cannula. Still with poor appetite. Glucose running in the upper to mid 300s. AST down to 47. Tolerating meds well. Day 4 of remdesivir today Vitals/I&O Vitals/I&O: Vital Signs Date Time Temp Pulse Resp B/P (MAP) Pulse Ox O2 Delivery O2 Flow Rate FiO2 01/05/21 11:00 98.0 101 18 130/72 (91) 90 Nasal Cannula 7.0 98.0 I & O 01/04/21 01/04/21 01/05/21 15:00 23:00 07:00 Intake Total 120 ml 300 ml Balance 120 ml 300 ml Physical Exam General: Alert, Cooperative, No acute distress Lungs: Clear Abdomen: Soft, No tenderness, No hepatosplenomegaly, No masses, Other (Hyperactive bowel sounds) Extremities: Other (Right AKA stump with redness, ulcer, minimal skin breakdown) Skin: Other (Gluteal and right AKA ulcers) Labs Labs: Laboratory Tests Test 01/04/21 17:15 01/04/21 20:48 01/05/21 05:00 01/05/21 07:48 Glucose (Fingerstick) 295 mg/dL (70-99) 299 mg/dL (70-99) 276 mg/dL (70-99) Sodium Level 137 mmol/L (136-145) Potassium Level 4.3 mmol/L (3.5-5.1) Chloride Level 104 mmol/L (98-107) Carbon Dioxide Level 25 mmol/L (21-32) Anion Gap 8 (6-14) Blood Urea Nitrogen 36 mg/dL (7-20) Creatinine 0.8 mg/dL (0.6-1.0) Estimated GFR (Cockcroft-Gault) 70.9 BUN/Creatinine Ratio 45 (6-20) Glucose Level 285 mg/dL (70-99) Calcium Level 8.3 mg/dL (8.5-10.1) Total Bilirubin 0.4 mg/dL (0.2-1.0) Aspartate Amino Transf (AST/SGOT) 40 U/L (15-37) Alanine Aminotransferase (ALT/SGPT) 19 U/L (14-59) Alkaline Phosphatase 85 U/L (46-116) Total Protein 6.6 g/dL (6.4-8.2) Albumin 2.1 g/dL (3.4-5.0) Albumin/Globulin Ratio 0.5 (1.0-1.7) Test 01/05/21 11:52 Glucose (Fingerstick) 337 mg/dL (70-99) Assessment and Plan Assessmemt and Plan Problems Medical Problems: (1) Person under investigation for COVID-19 Status: Acute Comment Review of Relevant I have reviewed the following items marcio (where applicable) has been applied. Justifications for Admission Other Justification diarrhea and UTI HELEN HUMMEL MD Jan 05, 2021 15:13
[2021-01-05] MEDS: cefTRIAXone IV Push 1 GM VIAL. IVP SCH (16:56)
[2021-01-05] MEDS ORDERED: INSULIN LISPRO 300 UNITS/3 ML VIAL. SQ ONE (17:15)
[2021-01-05] MEDS: ONDANSETRON PF 4 MG/2 ML VIAL. IVP PRN (17:45)
[2021-01-05 19:00] VITALS: BP 137/90
[2021-01-05] MEDS: LACTOBACILLUS RHAMNOSUS GG 1 CAPSULE. PO SCH (21:42)
[2021-01-05] MEDS: traZODone 50 MG TABLET. PO SCH (21:42)
[2021-01-05] MEDS: INSULIN GLARGINE SYRINGE. SQ SCH (21:44)
[2021-01-05 23:00] VITALS: BP 113/76
[2021-01-06 03:00] VITALS: BP 111/65
[2021-01-06 07:19] LABS: BASO % 0 % (0-3); EOS % 0 % (0-3); HEMATOCRIT 36.9 % (36.0-47.0); HEMOGLOBIN 12.2 g/dL (12.0-15.5); LYMPH # 0.8 x10^3/uL (1.0-4.8); LYMPH % 7 % (24-48); MEAN CORPUSCULAR HEMOGLOBIN 30 pg (25-35); MEAN CORPUSCULAR HGB CONC 33 g/dL (31-37); MEAN CORPUSCULAR VOLUME 89 fL (79-100); MONO # 1.6 x10^3/uL (0.0-1.1); MONO % 13 % (0-9); NEUT % 80 % (31-73); PLATELET COUNT 280 x10^3/uL (140-400); RED BLOOD COUNT 4.12 x10^6/uL (3.50-5.40); RED CELL DISTRIBUTION WIDTH 14.2 % (11.5-14.5); WHITE BLOOD COUNT 12.4 x10^3/uL (4.0-11.0)
[2021-01-06 07:30] VITALS: BP 101/59
[2021-01-06 07:40] LABS: ALBUMIN 2.1 g/dL (3.4-5.0); ALBUMIN/GLOBULIN RATIO 0.5 (1.0-1.7); CALCIUM 8.3 mg/dL (8.5-10.1); CREATININE 1.1 mg/dL (0.6-1.0); GFR 49.1; POTASSIUM 4.6 mmol/L (3.5-5.1); TOTAL BILIRUBIN 0.4 mg/dL (0.2-1.0); TOTAL PROTEIN 6.3 g/dL (6.4-8.2)
[2021-01-06] MEDS: ENOXAPARIN 40 MG/0.4 ML SYRINGE. SQ SCH ×2 (09:06→21:42)
[2021-01-06] MEDS: ZINC SULFATE 220 MG CAPSULE. PO SCH (09:06)
[2021-01-06] MEDS: THIAMINE 100 MG TABLET. PO SCH (09:06)
[2021-01-06] MEDS: CITALOPRAM 20 MG TABLET. PO SCH (09:06)
[2021-01-06] MEDS: DEXAMETHASONE SOD PHOS 4 MG/ML VIAL IVP SCH (09:06)
[2021-01-06] MEDS: LACTOBACILLUS RHAMNOSUS GG 1 CAPSULE. PO SCH ×2 (09:06→21:43)
[2021-01-06] MEDS: LISINOPRIL 20 MG TABLET PO SCH (09:08)
[2021-01-06] MEDS: NYSTATIN TOPICAL POWDER 15GM BOTTLE. TP SCH ×2 (09:09→21:00)
[2021-01-06] MEDS: INSULIN LISPRO 300 UNITS/3 ML VIAL. SQ SCH ×3 (09:11→17:25)
[2021-01-06] MEDS: REMDESIVIR 100mg in NORMAL SALINE 250ML X 4 DAYS IV SCH (09:34)
[2021-01-06 11:30] VITALS: BP 152/76
--- NOTE | 2021-01-06 11:44 | PDOC ---
[employer] [facility] PROGRESS NOTE Date of Service DOS: DATE: 01/06/21 TIME: 11:43 Chief Complaint Chief Complaint A/P: Acute respiratory failure with hypoxia - due to COVID 19 pneumonia, steroids, remdesivir Diarrhea - not recurrent C. difficile infection, likely covid 19 Sepsis - due to COVID 19 with pneumonia UTI - proteus and klebsiella on rocephin Abnormal CXR - has a chronic cough, clear this is pneumonia. Have been treating as gram negative given her risk of aspiration. History of diabetes mellitus type 2 - sliding scale insulin while on steroids History of hypertension - cont meds COPD - combivent inhaler S/P Right AKA Debilitated Hypophosphatemia - replace IV Concern for caregiver burden Gluteal ulcer - fissure Right AKA - stump redness, no discharge or discrete ulcer on my examination FEN - Regular diet PPX - lovenox CODE - FULL Dispo - inpatient History of Present Illness History of Present Illness Ms Alexis is a 70yo F w/ PMHx COPD, Diabetes-Type II, GERD, Hypertension, [place], dementia, 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 Patient has been sick with Covid type symptoms for the past week with shortness of breath, progressive weakness large amounts of diarrhea that are foul-smelling decreased appetite. History provided by patient's daughter via phone notes the entire family is isolating at home from being Covid positive, patient is able to say her right leg hurts but otherwise despite hearing amplification does not give any other history and most of the history is given. Daughter over the telephone. Baseline mentation status currently of alert and oriented x1. 2 family member tested positive for Covid19 approximately 1 week ago. Patient is not vaccinated. EMS noted patient's oxygen saturation was 82% and was placed on 4 L nasal cannula with improvement of O2 sats to 92 to 93%. CTA chest abdomen pelvis with bilateral pulmonary opacities and colitis, no abscess noted. Negative for pulmonary embolism WBC 11.3, Hb 12.7, platelets 195, D-dimer 6.32, NA 139, K3 0.9 mmol BUN 16, CR 0.4 glucose 135 calcium 8.1, Phos 1.9, magnesium 1.9, bilirubin 0.5, AST 100, ALT 28, alk phos 129 NT proBNP 1114, albumin 2.3, lactic acid 1.2, rapid flu negative urinalysis with small leuk esterase. Rapid COVID 19 positive Admitted for further care 01/02: Still hypoxic poor appetite. Replaced phos and lost IV access and unable to keep getting better IV access does need remdesivir and IV steroids. S/p PICC 01/03: Labs slightly improved. Still hypoxic. No complaints. PICC working well. Still requiring 4 L nasal cannula oxygen with O2 saturations 80 to 94%. 01/04: 7 L nasal cannula today with saturations 96%. Appetite low. AST down to 47. tolerating meds well. Still feeling miserable 01/05: Afebrile. O2 saturations 92% on 7 L nasal cannula. Still with poor appetite. Glucose running in the upper to mid 300s. AST down to 47. Tolerating meds well. Day 4 of remdesivir today 01/06: Afebrile. Still requiring 2 L nasal cannula oxygen. Creatinine bumped to 1.1. Blood pressure low side reduce her lisinopril and amlodipine. Poor appetite. Remdesivir day 5 today. Vitals/I&O Vitals/I&O: Vital Signs Date Time Temp Pulse Resp B/P (MAP) Pulse Ox O2 Delivery O2 Flow Rate FiO2 01/06/21 09:08 91 101/59 01/06/21 08:05 Nasal Cannula 7.0 01/06/21 07:30 97.5 18 97 97.5 I & O 01/05/21 01/05/21 01/06/21 15:00 23:00 07:00 Intake Total 100 ml 240 ml 120 ml Balance 100 ml 240 ml 120 ml Physical Exam General: Alert, Cooperative, No acute distress Lungs: Clear Abdomen: Soft, No tenderness, No hepatosplenomegaly, No masses, Other (Hyperactive bowel sounds) Extremities: Other (Right AKA stump with redness, ulcer, minimal skin breakdown) Skin: Other (Gluteal and right AKA ulcers) Labs Labs: Laboratory Tests Test 01/05/21 11:52 01/05/21 16:47 01/05/21 21:04 01/06/21 06:30 Glucose (Fingerstick) 337 mg/dL (70-99) 369 mg/dL (70-99) 265 mg/dL (70-99) Sodium Level 142 mmol/L (136-145) Potassium Level 4.6 mmol/L (3.5-5.1) Chloride Level 108 mmol/L (98-107) Carbon Dioxide Level 27 mmol/L (21-32) Anion Gap 7 (6-14) Blood Urea Nitrogen 48 mg/dL (7-20) Creatinine 1.1 mg/dL (0.6-1.0) Estimated GFR (Cockcroft-Gault) 49.1 BUN/Creatinine Ratio 44 (6-20) Glucose Level 197 mg/dL (70-99) Calcium Level 8.3 mg/dL (8.5-10.1) Total Bilirubin 0.4 mg/dL (0.2-1.0) Aspartate Amino Transf (AST/SGOT) 45 U/L (15-37) Alanine Aminotransferase (ALT/SGPT) 32 U/L (14-59) Alkaline Phosphatase 82 U/L (46-116) Total Protein 6.3 g/dL (6.4-8.2) Albumin 2.1 g/dL (3.4-5.0) Albumin/Globulin Ratio 0.5 (1.0-1.7) Test 01/06/21 06:35 01/06/21 07:44 White Blood Count 12.4 x10^3/uL (4.0-11.0) Red Blood Count 4.12 x10^6/uL (3.50-5.40) Hemoglobin 12.2 g/dL (12.0-15.5) Hematocrit 36.9 % (36.0-47.0) Mean Corpuscular Volume 89 fL (79-100) Mean Corpuscular Hemoglobin 30 pg (25-35) Mean Corpuscular Hemoglobin Concent 33 g/dL (31-37) Red Cell Distribution Width 14.2 % (11.5-14.5) Platelet Count 280 x10^3/uL (140-400) Neutrophils (%) (Auto) 80 % (31-73) Lymphocytes (%) (Auto) 7 % (24-48) Monocytes (%) (Auto) 13 % (0-9) Eosinophils (%) (Auto) 0 % (0-3) Basophils (%) (Auto) 0 % (0-3) Neutrophils # (Auto) 10.0 x10^3/uL (1.8-7.7) Lymphocytes # (Auto) 0.8 x10^3/uL (1.0-4.8) Monocytes # (Auto) 1.6 x10^3/uL (0.0-1.1) Eosinophils # (Auto) 0.0 x10^3/uL (0.0-0.7) Basophils # (Auto) 0.0 x10^3/uL (0.0-0.2) Glucose (Fingerstick) 173 mg/dL (70-99) Assessment and Plan Assessmemt and Plan Problems Medical Problems: (1) Person under investigation for COVID-19 Status: Acute Comment Review of Relevant I have reviewed the following items marcio (where applicable) has been applied. Medications: Current Medications Medications (Trade) Dose Ordered Sig/Haim Route PRN Reason Start Time Stop Time Status Last Admin Dose Admin Insulin Glargine (Lantus Syringe) 12 unit QHS SQ 01/05/21 21:00 01/05/21 21:44 Lactobacillus Rhamnosus (Culturelle) 1 cap BID PO 01/05/21 21:00 01/06/21 09:06 Insulin Human Lispro (HumaLOG) 7 units 1X ONCE SQ 01/05/21 17:15 01/05/21 17:16 DC 01/05/21 17:30 Justifications for Admission Other Justification diarrhea and UTI HELEN HUMMEL MD Jan 06, 2021 11:44
[2021-01-06] MEDS: ONDANSETRON PF 4 MG/2 ML VIAL. IVP PRN (12:39)
[2021-01-06 15:00] VITALS: BP 145/91
[2021-01-06] MEDS: cefTRIAXone IV Push 1 GM VIAL. IVP SCH (16:34)
[2021-01-06] MEDS ORDERED: INSULIN LISPRO 300 UNITS/3 ML VIAL. SQ ONE (17:15)
[2021-01-06 19:00] VITALS: BP 131/65
[2021-01-06] MEDS: traZODone 50 MG TABLET. PO SCH (21:43)
[2021-01-06] MEDS: ACETAMINOPHEN 325 MG TABLET. PO PRN (21:43)
[2021-01-06] MEDS: INSULIN GLARGINE SYRINGE. SQ SCH (21:44)
[2021-01-06 23:00] VITALS: BP 116/72
[2021-01-07 03:00] VITALS: BP 108/61
[2021-01-07 07:00] VITALS: BP 112/69
[2021-01-07 08:40] LABS: BASO % 0 % (0-3); EOS % 0 % (0-3); HEMATOCRIT 36.7 % (36.0-47.0); HEMOGLOBIN 12.2 g/dL (12.0-15.5); LYMPH # 1.1 x10^3/uL (1.0-4.8); LYMPH % 7 % (24-48); MEAN CORPUSCULAR HEMOGLOBIN 30 pg (25-35); MEAN CORPUSCULAR HGB CONC 33 g/dL (31-37); MEAN CORPUSCULAR VOLUME 90 fL (79-100); MONO # 1.9 x10^3/uL (0.0-1.1); MONO % 11 % (0-9); NEUT # 13.7 x10^3/uL (1.8-7.7); NEUT % 82 % (31-73); PLATELET COUNT 307 x10^3/uL (140-400); RED BLOOD COUNT 4.08 x10^6/uL (3.50-5.40); RED CELL DISTRIBUTION WIDTH 14.3 % (11.5-14.5); WHITE BLOOD COUNT 16.7 x10^3/uL (4.0-11.0)
[2021-01-07 08:56] LABS: ALBUMIN 2.1 g/dL (3.4-5.0); ALBUMIN/GLOBULIN RATIO 0.5 (1.0-1.7); CALCIUM 8.4 mg/dL (8.5-10.1); CREATININE 0.8 mg/dL (0.6-1.0); GFR 70.9; POTASSIUM 4.5 mmol/L (3.5-5.1); TOTAL BILIRUBIN 0.4 mg/dL (0.2-1.0); TOTAL PROTEIN 6.3 g/dL (6.4-8.2)
[2021-01-07] MEDS: CITALOPRAM 20 MG TABLET. PO SCH (09:19)
[2021-01-07] MEDS: ZINC SULFATE 220 MG CAPSULE. PO SCH (09:19)
[2021-01-07] MEDS: ENOXAPARIN 40 MG/0.4 ML SYRINGE. SQ SCH (09:19)
[2021-01-07] MEDS: THIAMINE 100 MG TABLET. PO SCH (09:19)
[2021-01-07] MEDS: DEXAMETHASONE 4 MG TABLET PO SCH (09:19)
[2021-01-07] MEDS: LISINOPRIL 5 MG TABLET. PO SCH (09:20)
[2021-01-07] MEDS: NYSTATIN TOPICAL POWDER 15GM BOTTLE. TP SCH ×2 (09:20→21:00)
[2021-01-07] MEDS: LACTOBACILLUS RHAMNOSUS GG 1 CAPSULE. PO SCH ×2 (09:20→21:00)
[2021-01-07] MEDS: INSULIN LISPRO 300 UNITS/3 ML VIAL. SQ SCH ×6 (09:32→17:07)
[2021-01-07 11:00] VITALS: BP 134/76
--- NOTE | 2021-01-07 12:21 | PDOC ---
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 Patient has been sick with Covid type symptoms for the past week with shortness of breath, progressive weakness large amounts of diarrhea that are foul-smelling decreased appetite. History provided by patient's daughter via phone notes the entire family is isolating at home from being Covid positive, patient is able to say her right leg hurts but otherwise despite hearing amplification does not give any other history and most of the history is given. Daughter over the telephone. Baseline mentation status currently of alert and oriented x1. 2 family member tested positive for Covid19 approximately 1 week ago. Patient is not vaccinated. EMS noted patient's oxygen saturation was 82% and was placed on 4 L nasal ca nnula with improvement of O2 sats to 92 to 93%. CTA chest abdomen pelvis with bilateral pulmonary opacities and colitis, no abs cess noted. Negative for pulmonary embolism WBC 11.3, Hb 12.7, platelets 195, D-dimer 6.32, NA 139, K3 0.9 mmol BUN 16, CR 0.4 glucose 135 calcium 8.1, Phos 1.9, magnesium 1.9, bilirubin 0.5, AST 100, ALT 28, alk phos 129 NT proBNP 1114, albumin 2.3, lactic acid 1.2, rapid flu negative urinalysis with small leuk esterase. Rapid COVID 19 positive Admitted for further care 01/02: Still hypoxic poor appetite. Replaced phos and lost IV access and unable to keep getting better IV access does need remdesivir and IV steroids. S/p PICC 01/03: Labs slightly improved. Still hypoxic. No complaints. PICC working well. Still requiring 4 L nasal cannula oxygen with O2 saturations 80 to 94%. 01/04: 7 L nasal cannula today with saturations 96%. Appetite low. AST down to 47. tolerating meds well. Still feeling miserable 01/05: Afebrile. O2 saturations 92% on 7 L nasal cannula. Still with poor ap petite. Glucose running in the upper to mid 300s. AST down to 47. Tolerating meds well. Day 4 of remdesivir today 01/06: Afebrile. Still requiring 2 L nasal cannula oxygen. Creatinine bumped to 1.1. Blood pressure low side reduce her lisinopril and amlodipine. Poor appetite. Remdesivir day 5 today. 01/07: Patient seen and examined. Discussed with RN. Chart reviewed. Vitals/I&O Vitals/I&O: Vital Signs Date Time Temp Pulse Resp B/P (MAP) Pulse Ox O2 Delivery O2 Flow Rate FiO2 01/07/21 11:00 97.6 95 18 134/76 (95) 90 Nasal Cannula 7.0 97.6 I & O 01/06/21 01/06/21 01/07/21 15:00 23:00 07:00 Intake Total 710 ml 480 ml Balance 710 ml 480 ml Physical Exam General: Alert, Cooperative, No acute distress Lungs: Clear Abdomen: Soft, No tenderness, No hepatosplenomegaly, No masses, Other (Hyperactive bowel sounds) Extremities: Other (Right AKA stump with redness, ulcer, minimal skin breakdown) Skin: Other (Gluteal and right AKA ulcers) Labs Labs: Laboratory Tests Test 01/06/21 16:58 01/06/21 21:25 01/07/21 08:03 01/07/21 08:08 Glucose (Fingerstick) 364 mg/dL (70-99) 286 mg/dL (70-99) 159 mg/dL (70-99) White Blood Count 16.7 x10^3/uL (4.0-11.0) Red Blood Count 4.08 x10^6/uL (3.50-5.40) Hemoglobin 12.2 g/dL (12.0-15.5) Hematocrit 36.7 % (36.0-47.0) Mean Corpuscular Volume 90 fL (79-100) Mean Corpuscular Hemoglobin 30 pg (25-35) Mean Corpuscular Hemoglobin Concent 33 g/dL (31-37) Red Cell Distribution Width 14.3 % (11.5-14.5) Platelet Count 307 x10^3/uL (140-400) Neutrophils (%) (Auto) 82 % (31-73) Lymphocytes (%) (Auto) 7 % (24-48) Monocytes (%) (Auto) 11 % (0-9) Eosinophils (%) (Auto) 0 % (0-3) Basophils (%) (Auto) 0 % (0-3) Neutrophils # (Auto) 13.7 x10^3/uL (1.8-7.7) Lymphocytes # (Auto) 1.1 x10^3/uL (1.0-4.8) Monocytes # (Auto) 1.9 x10^3/uL (0.0-1.1) Eosinophils # (Auto) 0.0 x10^3/uL (0.0-0.7) Basophils # (Auto) 0.0 x10^3/uL (0.0-0.2) Sodium Level 146 mmol/L (136-145) Potassium Level 4.5 mmol/L (3.5-5.1) Chloride Level 112 mmol/L (98-107) Carbon Dioxide Level 26 mmol/L (21-32) Anion Gap 8 (6-14) Blood Urea Nitrogen 55 mg/dL (7-20) Creatinine 0.8 mg/dL (0.6-1.0) Estimated GFR (Cockcroft-Gault) 70.9 BUN/Creatinine Ratio 69 (6-20) Glucose Level 158 mg/dL (70-99) Calcium Level 8.4 mg/dL (8.5-10.1) Total Bilirubin 0.4 mg/dL (0.2-1.0) Aspartate Amino Transf (AST/SGOT) 28 U/L (15-37) Alanine Aminotransferase (ALT/SGPT) 25 U/L (14-59) Alkaline Phosphatase 75 U/L (46-116) Total Protein 6.3 g/dL (6.4-8.2) Albumin 2.1 g/dL (3.4-5.0) Albumin/Globulin Ratio 0.5 (1.0-1.7) Test 01/07/21 11:30 Glucose (Fingerstick) 160 mg/dL (70-99) Review of Systems Review of Systems: Complains of SOB and decreased appetite Assessment and Plan Assessmemt and Plan Problems Medical Problems: (1) Person under investigation for COVID-19 Status: Acute Acute respiratory failure with hypoxia - due to COVID 19 pneumonia, steroids, remdesivir Diarrhea - not recurrent C. difficile infection, likely covid 19 Sepsis - due to COVID 19 with pneumonia UTI - proteus and klebsiella on rocephin Abnormal CXR - has a chronic cough, clear this is pneumonia. Have been treating as gram negative given her risk of aspiration. History of diabetes mellitus type 2 - sliding scale insulin while on steroids History of hypertension - cont meds COPD - combivent inhaler S/P Right AKA Debilitated Hypophosphatemia - replace IV Concern for caregiver burden Gluteal ulcer - fissure Right AKA - stump redness, no discharge or discrete ulcer on my examination 1. FEN - Regular diet- encourage PO intake 2. DVT PPX - lovenox 3. CODE - FULL 4. Trend labs 5. Home meds Comment Review of Relevant I have reviewed the following items marcio (where applicable) has been applied. Medications: Current Medications Medications (Trade) Dose Ordered Sig/Haim Route PRN Reason Start Time Stop Time Status Last Admin Dose Admin Amlodipine Besylate (Norvasc) 2.5 mg DAILY PO 01/07/21 09:00 01/07/21 09:19 Lisinopril (Prinivil) 5 mg DAILY PO 01/07/21 09:00 01/07/21 09:20 Dexamethasone (Decadron) 4 mg [id number] PO 01/07/21 08:00 01/13/21 07:59 01/07/21 09:19 Insulin Human Lispro (HumaLOG) 9 units 1X ONCE SQ 01/06/21 17:15 01/06/21 17:16 DC 01/06/21 17:25 Insulin Human Lispro (HumaLOG) 5 units TIDAC SQ 01/07/21 07:30 01/07/21 12:00 Justifications for Admission Other Justification diarrhea and UTI MICHELLE WRAY III DO Jan 07, 2021 12:21
--- NOTE | 2021-01-07 13:46 | NUR ---
SW following. Discussed with RN, pt from home with family, 7L, COVID-19 positive. Pt not stable for discharge. SW will continue to follow.
[2021-01-07 15:00] VITALS: BP 137/82
[2021-01-07] MEDS: cefTRIAXone IV Push 1 GM VIAL. IVP SCH (17:01)
[2021-01-07 19:00] VITALS: BP 105/71
[2021-01-07] MEDS: traZODone 50 MG TABLET. PO SCH (21:00)
[2021-01-07 23:00] VITALS: BP 131/88
[2021-01-08] MEDS: ENOXAPARIN 40 MG/0.4 ML SYRINGE. SQ SCH ×3 (00:05→21:40)
[2021-01-08] MEDS: INSULIN GLARGINE SYRINGE. SQ SCH ×2 (00:06→21:45)
[2021-01-08] MEDS: IV NORMAL SALINE 1000ML BAG 1,000 ML IV SCH ×2 (00:26→12:43)
[2021-01-08 03:00] VITALS: BP 129/84
[2021-01-08 07:00] VITALS: BP 140/83
[2021-01-08] MEDS: INSULIN LISPRO 300 UNITS/3 ML VIAL. SQ SCH ×6 (07:30→17:00)
[2021-01-08] MEDS: NYSTATIN TOPICAL POWDER 15GM BOTTLE. TP SCH ×2 (09:00→21:00)
[2021-01-08] MEDS: LACTOBACILLUS RHAMNOSUS GG 1 CAPSULE. PO SCH ×2 (10:39→21:40)
[2021-01-08] MEDS: LISINOPRIL 5 MG TABLET. PO SCH (10:39)
[2021-01-08] MEDS: DEXAMETHASONE 4 MG TABLET PO SCH (10:39)
[2021-01-08] MEDS: THIAMINE 100 MG TABLET. PO SCH (10:40)
[2021-01-08] MEDS: CITALOPRAM 20 MG TABLET. PO SCH (10:40)
[2021-01-08] MEDS: ZINC SULFATE 220 MG CAPSULE. PO SCH (10:41)
[2021-01-08 11:00] VITALS: BP 130/77
--- NOTE | 2021-01-08 12:40 | PDOC ---
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 Patient has been sick with Covid type symptoms for the past week with shortness of breath, progressive weakness large amounts of diarrhea that are foul-smelling decreased appetite. History provided by patient's daughter via phone notes the entire family is isolating at home from being Covid positive, patient is able to say her right leg hurts but otherwise despite hearing amplification does not give any other history and most of the history is given. Daughter over the telephone. Baseline mentation status currently of alert and oriented x1. 2 family member tested positive for Covid19 approximately 1 week ago. Patient is not vaccinated. EMS noted patient's oxygen saturation was 82% and was placed on 4 L nasal ca nnula with improvement of O2 sats to 92 to 93%. CTA chest abdomen pelvis with bilateral pulmonary opacities and colitis, no abs cess noted. Negative for pulmonary embolism WBC 11.3, Hb 12.7, platelets 195, D-dimer 6.32, NA 139, K3 0.9 mmol BUN 16, CR 0.4 glucose 135 calcium 8.1, Phos 1.9, magnesium 1.9, bilirubin 0.5, AST 100, ALT 28, alk phos 129 NT proBNP 1114, albumin 2.3, lactic acid 1.2, rapid flu negative urinalysis with small leuk esterase. Rapid COVID 19 positive Admitted for further care 01/02: Still hypoxic poor appetite. Replaced phos and lost IV access and unable to keep getting better IV access does need remdesivir and IV steroids. S/p PICC 01/03: Labs slightly improved. Still hypoxic. No complaints. PICC working well. Still requiring 4 L nasal cannula oxygen with O2 saturations 80 to 94%. 01/04: 7 L nasal cannula today with saturations 96%. Appetite low. AST down to 47. tolerating meds well. Still feeling miserable 01/05: Afebrile. O2 saturations 92% on 7 L nasal cannula. Still with poor ap petite. Glucose running in the upper to mid 300s. AST down to 47. Tolerating meds well. Day 4 of remdesivir today 01/06: Afebrile. Still requiring 2 L nasal cannula oxygen. Creatinine bumped to 1.1. Blood pressure low side reduce her lisinopril and amlodipine. Poor appetite. Remdesivir day 5 today. 01/07: Patient seen and examined. Discussed with RN. Chart reviewed. 01/08: Patient seen and examined. Blood pressure has been slightly elevated today. Glucose continues to be elevated (120-145 ) but has trended down since admission. Discussed with RN. Chart reviewed. Vitals/I&O Vitals/I&O: Vital Signs Date Time Temp Pulse Resp B/P (MAP) Pulse Ox O2 Delivery O2 Flow Rate FiO2 01/08/21 11:00 98.2 70 18 130/77 (94) 91 Nasal Cannula 7.0 98.2 I & O 01/07/21 01/07/21 01/08/21 15:00 23:00 07:00 Intake Total 440 ml 200 ml 240 ml Output Total 0 ml Balance 440 ml 200 ml 240 ml Physical Exam General: Alert, Cooperative, No acute distress Heart: Regular rate Lungs: Other (Inspiratory rales heard over right upper lobe, anteriorly ) Abdomen: Soft, No tenderness, No hepatosplenomegaly, No masses, Other (Hyperactive bowel sounds) Extremities: Other (Right AKA stump with redness, ulcer, minimal skin breakdown) Skin: Other (Gluteal and right AKA ulcers) Labs Labs: Laboratory Tests Test 01/07/21 13:22 01/07/21 16:58 01/07/21 23:08 01/08/21 08:20 Glucose (Fingerstick) 113 mg/dL (70-99) 186 mg/dL (70-99) 161 mg/dL (70-99) 127 mg/dL (70-99) Test 01/08/21 11:59 Glucose (Fingerstick) 143 mg/dL (70-99) Review of Systems Review of Systems: Patient endorses decreased appetite and weakness. Assessment and Plan Assessmemt and Plan Problems Medical Problems: (1) Person under investigation for COVID-19 Status: Acute Acute respiratory failure with hypoxia - due to COVID 19 pneumonia, steroids, remdesivir Diarrhea - not recurrent C. difficile infection, likely covid 19 Sepsis - due to COVID 19 with pneumonia UTI - proteus and klebsiella on rocephin Abnormal CXR - has a chronic cough, clear this is pneumonia. Have been treating as gram negative given her risk of aspiration. History of diabetes mellitus type 2 - sliding scale insulin while on steroids History of hypertension - cont meds COPD - combivent inhaler S/P Right AKA Debilitated Hypophosphatemia - replace IV Concern for caregiver burden Gluteal ulcer - fissure Right AKA - stump redness, no discharge or discrete ulcer on my examination Plan: 1. COVID-19 Protocol -Continue vitamins and minerals (B1 and zinc supplement) -Continue Robitussin -Continue ceftriaxone (Note: finished Remdisiver on 01/06) 2. FEN - Regular diet- encourage PO intake 3. DVT PPX - lovenox 4. CODE - FULL 5. Trend labs 6. Continue home meds 7. Discharge disposition pending Comment Review of Relevant I have reviewed the following items marcio (where applicable) has been applied. Medications: Current Medications Medications (Trade) Dose Ordered Sig/Haim Route PRN Reason Start Time Stop Time Status Last Admin Dose Admin Sodium Chloride 1,000 ml @ 75 mls/hr [id number] IV 01/08/21 00:15 01/08/21 00:26 Justifications for Admission Other Justification diarrhea and UTI MICHELLE WRAY III DO Jan 08, 2021 12:40
[2021-01-08 15:00] VITALS: BP 137/86
--- NOTE | 2021-01-08 16:35 | NUR ---
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 See wound assessment for details. Patient is well known to us from the wound clinic. Wounds cleansed, assessed and redressed. Pericare done, pt change, urine incontinence noted, nystatin powder applied to multiple groin areas with intertrigo. Treatment Recommendations/Plan: Cleanse all wound with saline or wound wash, then pat dry. Right AKA: cover with aquacel ag and then cover with foam dressing, change every other day. Coccyx: apply Calazime cream bid and prn Groins/folds/pannus: apply nystatin powder bid Education provided: Patient very [place] unable to educate but follows commands as she is familiar with wound care Offloading surface/device: P500 bed ordered, purple wedge, pillows to elevate Recommended Referrals/Tests: N/A Discharge Recommendations for dressings: same as above, wc will follow up later on this week. P500 ordered
[2021-01-08] MEDS: cefTRIAXone IV Push 1 GM VIAL. IVP SCH (17:33)
[2021-01-08 19:00] VITALS: BP 142/76
[2021-01-08] MEDS: traZODone 50 MG TABLET. PO SCH (21:40)
[2021-01-08 23:00] VITALS: BP 154/88
[2021-01-09] MEDS: IV NORMAL SALINE 1000ML BAG 1,000 ML IV SCH ×2 (01:47→16:36)
[2021-01-09 03:00] VITALS: BP 140/81
[2021-01-09 06:50] LABS: BASO % 0 % (0-3); EOS % 0 % (0-3); HEMATOCRIT 36.8 % (36.0-47.0); HEMOGLOBIN 12.1 g/dL (12.0-15.5); LYMPH # 0.7 x10^3/uL (1.0-4.8); LYMPH % 8 % (24-48); MEAN CORPUSCULAR HEMOGLOBIN 30 pg (25-35); MEAN CORPUSCULAR HGB CONC 33 g/dL (31-37); MEAN CORPUSCULAR VOLUME 92 fL (79-100); MONO # 0.6 x10^3/uL (0.0-1.1); MONO % 8 % (0-9); NEUT # 7.1 x10^3/uL (1.8-7.7); NEUT % 84 % (31-73); PLATELET COUNT 217 x10^3/uL (140-400); RED CELL DISTRIBUTION WIDTH 14.4 % (11.5-14.5); WHITE BLOOD COUNT 8.4 x10^3/uL (4.0-11.0)
[2021-01-09 07:00] VITALS: BP 145/85
[2021-01-09 07:33] LABS: ALBUMIN 1.8 g/dL (3.4-5.0); ALBUMIN/GLOBULIN RATIO 0.4 (1.0-1.7); CALCIUM 7.7 mg/dL (8.5-10.1); CREATININE 0.6 mg/dL (0.6-1.0); GFR 98.8; POTASSIUM 4.5 mmol/L (3.5-5.1); TOTAL BILIRUBIN 0.4 mg/dL (0.2-1.0)
[2021-01-09] MEDS: INSULIN LISPRO 300 UNITS/3 ML VIAL. SQ SCH ×6 (08:00→17:50)
[2021-01-09] MEDS: NYSTATIN TOPICAL POWDER 15GM BOTTLE. TP SCH ×2 (09:39→20:59)
[2021-01-09] MEDS: ENOXAPARIN 40 MG/0.4 ML SYRINGE. SQ SCH ×2 (09:39→21:00)
[2021-01-09] MEDS: THIAMINE 100 MG TABLET. PO SCH (09:40)
[2021-01-09] MEDS: CITALOPRAM 20 MG TABLET. PO SCH (09:40)
[2021-01-09] MEDS: LACTOBACILLUS RHAMNOSUS GG 1 CAPSULE. PO SCH ×2 (09:40→21:00)
[2021-01-09] MEDS: ZINC SULFATE 220 MG CAPSULE. PO SCH (09:40)
[2021-01-09] MEDS: DEXAMETHASONE 4 MG TABLET PO SCH (09:41)
[2021-01-09] MEDS: LISINOPRIL 5 MG TABLET. PO SCH (09:41)
--- NOTE | 2021-01-09 09:46 | PDOC ---
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 Patient has been sick with Covid type symptoms for the past week with shortness of breath, progressive weakness large amounts of diarrhea that are foul-smelling decreased appetite. History provided by patient's daughter via phone notes the entire family is isolating at home from being Covid positive, patient is able to say her right leg hurts but otherwise despite hearing amplification does not give any other history and most of the history is given. Daughter over the telephone. Baseline mentation status currently of alert and oriented x1. 2 family member tested positive for Covid19 approximately 1 week ago. Patient is not vaccinated. EMS noted patient's oxygen saturation was 82% and was placed on 4 L nasal ca nnula with improvement of O2 sats to 92 to 93%. CTA chest abdomen pelvis with bilateral pulmonary opacities and colitis, no abs cess noted. Negative for pulmonary embolism WBC 11.3, Hb 12.7, platelets 195, D-dimer 6.32, NA 139, K3 0.9 mmol BUN 16, CR 0.4 glucose 135 calcium 8.1, Phos 1.9, magnesium 1.9, bilirubin 0.5, AST 100, ALT 28, alk phos 129 NT proBNP 1114, albumin 2.3, lactic acid 1.2, rapid flu negative urinalysis with small leuk esterase. Rapid COVID 19 positive Admitted for further care 01/02: Still hypoxic poor appetite. Replaced phos and lost IV access and unable to keep getting better IV access does need remdesivir and IV steroids. S/p PICC 01/03: Labs slightly improved. Still hypoxic. No complaints. PICC working well. Still requiring 4 L nasal cannula oxygen with O2 saturations 80 to 94%. 01/04: 7 L nasal cannula today with saturations 96%. Appetite low. AST down to 47. tolerating meds well. Still feeling miserable 01/05: Afebrile. O2 saturations 92% on 7 L nasal cannula. Still with poor ap petite. Glucose running in the upper to mid 300s. AST down to 47. Tolerating meds well. Day 4 of remdesivir today 01/06: Afebrile. Still requiring 2 L nasal cannula oxygen. Creatinine bumped to 1.1. Blood pressure low side reduce her lisinopril and amlodipine. Poor appetite. Remdesivir day 5 today. 01/07: Patient seen and examined. Discussed with RN. Chart reviewed. 01/08: Patient seen and examined. Blood pressure has been slightly elevated today. Glucose continues to be elevated (120-145 ) but has trended down since admission. Discussed with RN. Chart reviewed. 01/09: Patient seen and examined. Blood pressure continues to be slightly elevated. Glucose continues to be elevated (127-252), and is higher than yesterday. Discussed with RN. Chart reviewed. Vitals/I&O Vitals/I&O: Vital Signs Date Time Temp Pulse Resp B/P (MAP) Pulse Ox O2 Delivery O2 Flow Rate FiO2 01/09/21 07:00 99.6 84 20 145/85 (105) 99 Nasal Cannula 7.0 99.6 I & O 01/08/21 01/08/21 01/09/21 15:00 23:00 07:00 Intake Total 0 ml 240 ml Balance 0 ml 240 ml Physical Exam General: Alert, Cooperative, No acute distress Heart: Regular rate Lungs: Other (Bilateral wheezes heard over all lung posts) Abdomen: Soft, No tenderness, No hepatosplenomegaly, No masses, Other (Hyperactive bowel sounds) Extremities: Other (Right AKA stump with redness, ulcer, minimal skin breakdown) Skin: Other (Gluteal and right AKA ulcers) Labs Labs: Laboratory Tests Test 01/08/21 11:59 01/08/21 22:59 01/09/21 06:25 01/09/21 08:26 Glucose (Fingerstick) 143 mg/dL (70-99) 252 mg/dL (70-99) 148 mg/dL (70-99) White Blood Count 8.4 x10^3/uL (4.0-11.0) Red Blood Count 4.00 x10^6/uL (3.50-5.40) Hemoglobin 12.1 g/dL (12.0-15.5) Hematocrit 36.8 % (36.0-47.0) Mean Corpuscular Volume 92 fL (79-100) Mean Corpuscular Hemoglobin 30 pg (25-35) Mean Corpuscular Hemoglobin Concent 33 g/dL (31-37) Red Cell Distribution Width 14.4 % (11.5-14.5) Platelet Count 217 x10^3/uL (140-400) Neutrophils (%) (Auto) 84 % (31-73) Lymphocytes (%) (Auto) 8 % (24-48) Monocytes (%) (Auto) 8 % (0-9) Eosinophils (%) (Auto) 0 % (0-3) Basophils (%) (Auto) 0 % (0-3) Neutrophils # (Auto) 7.1 x10^3/uL (1.8-7.7) Lymphocytes # (Auto) 0.7 x10^3/uL (1.0-4.8) Monocytes # (Auto) 0.6 x10^3/uL (0.0-1.1) Eosinophils # (Auto) 0.0 x10^3/uL (0.0-0.7) Basophils # (Auto) 0.0 x10^3/uL (0.0-0.2) Sodium Level 133 mmol/L (136-145) Potassium Level 4.5 mmol/L (3.5-5.1) Chloride Level 102 mmol/L (98-107) Carbon Dioxide Level 25 mmol/L (21-32) Anion Gap 6 (6-14) Blood Urea Nitrogen 24 mg/dL (7-20) Creatinine 0.6 mg/dL (0.6-1.0) Estimated GFR (Cockcroft-Gault) 98.8 BUN/Creatinine Ratio 40 (6-20) Glucose Level 163 mg/dL (70-99) Calcium Level 7.7 mg/dL (8.5-10.1) Total Bilirubin 0.4 mg/dL (0.2-1.0) Aspartate Amino Transf (AST/SGOT) 22 U/L (15-37) Alanine Aminotransferase (ALT/SGPT) 20 U/L (14-59) Alkaline Phosphatase 63 U/L (46-116) Total Protein 6.0 g/dL (6.4-8.2) Albumin 1.8 g/dL (3.4-5.0) Albumin/Globulin Ratio 0.4 (1.0-1.7) Review of Systems Review of Systems: Patient denies nausea and vomiting. Assessment and Plan Assessmemt and Plan Problems Medical Problems: (1) Person under investigation for COVID-19 Status: Acute Acute respiratory failure with hypoxia - due to COVID 19 Diarrhea - likely due to COVID19 Sepsis - due to COVID 19 with pneumonia UTI Abnormal CXR - pneumonia. Have been treating as gram negative given her risk of aspiration. History of diabetes mellitus type 2 - sliding scale insulin while on steroids History of hypertension COPD S/P Right AKA Debilitated Hypophosphatemia Concern for caregiver burden Gluteal ulcer - fissure Plan: 1. COVID-19 Protocol -Continue vitamins and minerals (B1 and zinc supplement) -Continue Robitussin -Continue ceftriaxone (Note: finished Remdisiver on 01/06) -Continue O2 via nasal cannula 2. FEN - Regular diet- encourage PO intake 3. DVT PPX - lovenox 4. FULL CODE 5. Trend labs 6. Continue home meds 7. Discharge disposition pending Comment Review of Relevant I have reviewed the following items marcio (where applicable) has been applied. Justifications for Admission Other Justification diarrhea and UTI MICHELLE WRAY III DO Jan 09, 2021 09:46
[2021-01-09 11:00] VITALS: BP 136/80
--- NOTE | 2021-01-09 11:52 | NUR ---
SW following. Discussed with RN, pt from home with family, 7L, soft mechanical diet, COVID-19 positive. Pt is bed bound, not ready to discharge home yet. SW will continue to follow.
[2021-01-09 15:00] VITALS: BP 146/77
[2021-01-09] MEDS: cefTRIAXone IV Push 1 GM VIAL. IVP SCH (17:45)
[2021-01-09 19:00] VITALS: BP 135/78
[2021-01-09] MEDS: INSULIN GLARGINE SYRINGE. SQ SCH (21:00)
[2021-01-09] MEDS: traZODone 50 MG TABLET. PO SCH (21:00)
[2021-01-09 23:00] VITALS: BP 135/84
[2021-01-10 03:00] VITALS: BP 155/96
[2021-01-10] MEDS: IV NORMAL SALINE 1000ML BAG 1,000 ML IV SCH ×2 (05:26→18:55)
[2021-01-10 06:42] LABS: ALBUMIN 1.6 g/dL (3.4-5.0); ALBUMIN/GLOBULIN RATIO 0.4 (1.0-1.7); CALCIUM 7.7 mg/dL (8.5-10.1); CREATININE 0.6 mg/dL (0.6-1.0); GFR 98.8; POTASSIUM 4.8 mmol/L (3.5-5.1); TOTAL BILIRUBIN 0.4 mg/dL (0.2-1.0); TOTAL PROTEIN 5.3 g/dL (6.4-8.2)
[2021-01-10 07:12] LABS: BASO % 0 % (0-3); EOS % 0 % (0-3); HEMOGLOBIN 10.2 g/dL (12.0-15.5); LYMPH # 0.6 x10^3/uL (1.0-4.8); LYMPH % 12 % (24-48); MEAN CORPUSCULAR HEMOGLOBIN 30 pg (25-35); MEAN CORPUSCULAR HGB CONC 34 g/dL (31-37); MEAN CORPUSCULAR VOLUME 90 fL (79-100); MONO # 0.6 x10^3/uL (0.0-1.1); MONO % 11 % (0-9); NEUT # 4.3 x10^3/uL (1.8-7.7); NEUT % 77 % (31-73); PLATELET COUNT 190 x10^3/uL (140-400); RED BLOOD COUNT 3.34 x10^6/uL (3.50-5.40); RED CELL DISTRIBUTION WIDTH 14.1 % (11.5-14.5); WHITE BLOOD COUNT 5.5 x10^3/uL (4.0-11.0)
[2021-01-10 07:30] VITALS: BP 152/87
[2021-01-10] MEDS: INSULIN LISPRO 300 UNITS/3 ML VIAL. SQ SCH ×6 (07:30→17:00)
[2021-01-10] MEDS: LISINOPRIL 5 MG TABLET. PO SCH (09:07)
[2021-01-10] MEDS: ZINC SULFATE 220 MG CAPSULE. PO SCH (09:10)
[2021-01-10] MEDS: LACTOBACILLUS RHAMNOSUS GG 1 CAPSULE. PO SCH ×2 (09:10→21:41)
[2021-01-10] MEDS: CITALOPRAM 20 MG TABLET. PO SCH (09:11)
[2021-01-10] MEDS: DEXAMETHASONE 4 MG TABLET PO SCH (09:11)
[2021-01-10] MEDS: ENOXAPARIN 40 MG/0.4 ML SYRINGE. SQ SCH ×2 (09:15→21:41)
[2021-01-10] MEDS: NYSTATIN TOPICAL POWDER 15GM BOTTLE. TP SCH ×2 (09:15→21:41)
[2021-01-10] MEDS: THIAMINE 100 MG TABLET. PO SCH (09:15)
[2021-01-10 11:30] VITALS: BP 132/82
--- NOTE | 2021-01-10 11:56 | PDOC ---
[facility] [facility] PROGRESS NOTE Date of Service DOS: DATE: 01/10/21 TIME: 11:48 Chief Complaint Chief Complaint CC: Acute respiratory failure with hypoxia- due to COVID-19 Diarrhea Sepsis UTI History of diabetes mellitus type 2 History of Hypertension COPD S/P Right AKA Debilitated Hypophosphatemia Gluteal Ulcer Concern for caregiver burden History of Present Illness History of Present Illness Ms Alexis is a 70yo F w/ PMHx COPD, Diabetes-Type II, GERD, Hypertension, [place], dementia, 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 Patient has been sick with Covid type symptoms for the past week with shortness of breath, progressive weakness large amounts of diarrhea that are foul-smelling decreased appetite. History provided by patient's daughter via phone notes the entire family is isolating at home from being Covid positive, patient is able to say her right leg hurts but otherwise despite hearing amplification does not give any other history and most of the history is given. Daughter over the telephone. Baseline mentation status currently of alert and oriented x1. 2 family member tested positive for Covid19 approximately 1 week ago. Patient is not vaccinated. EMS noted patient's oxygen saturation was 82% and was placed on 4 L nasal ca nnula with improvement of O2 sats to 92 to 93%. CTA chest abdomen pelvis with bilateral pulmonary opacities and colitis, no abs cess noted. Negative for pulmonary embolism WBC 11.3, Hb 12.7, platelets 195, D-dimer 6.32, NA 139, K3 0.9 mmol BUN 16, CR 0.4 glucose 135 calcium 8.1, Phos 1.9, magnesium 1.9, bilirubin 0.5, AST 100, ALT 28, alk phos 129 NT proBNP 1114, albumin 2.3, lactic acid 1.2, rapid flu negative urinalysis with small leuk esterase. Rapid COVID 19 positive Admitted for further care 01/02: Still hypoxic poor appetite. Replaced phos and lost IV access and unable to keep getting better IV access does need remdesivir and IV steroids. S/p PICC 01/03: Labs slightly improved. Still hypoxic. No complaints. PICC working well. Still requiring 4 L nasal cannula oxygen with O2 saturations 80 to 94%. 01/04: 7 L nasal cannula today with saturations 96%. Appetite low. AST down to 47. tolerating meds well. Still feeling miserable 01/05: Afebrile. O2 saturations 92% on 7 L nasal cannula. Still with poor ap petite. Glucose running in the upper to mid 300s. AST down to 47. Tolerating meds well. Day 4 of remdesivir today 01/06: Afebrile. Still requiring 2 L nasal cannula oxygen. Creatinine bumped to 1.1. Blood pressure low side reduce her lisinopril and amlodipine. Poor appetite. Remdesivir day 5 today. 01/07: Patient seen and examined. Discussed with RN. Chart reviewed. 01/08: Patient seen and examined. Blood pressure has been slightly elevated today. Glucose continues to be elevated (120-145 ) but has trended down since admission. Discussed with RN. Chart reviewed. 01/09: Patient seen and examined. Blood pressure continues to be slightly elevated. Glucose continues to be elevated (127-252), and is higher than yesterday. Discussed with RN. Chart reviewed. 01/10: Patient seen and examined. Acute mild decrease in RBC, Hct, and HgB indicated on 01/10 labs. Discussed with RN. Chart reviewed. Vitals/I&O Vitals/I&O: Vital Signs Date Time Temp Pulse Resp B/P (MAP) Pulse Ox O2 Delivery O2 Flow Rate FiO2 01/10/21 11:30 98.8 103 22 132/82 (99) 90 Nasal Cannula 7.0 98.8 I & O 01/09/21 01/09/21 01/10/21 15:00 23:00 07:00 Intake Total 340 ml 240 ml 1100 ml Balance 340 ml 240 ml 1100 ml Physical Exam General: Alert, Cooperative, No acute distress Heart: Regular rate Lungs: Other (Bilateral wheezes heard over all lung posts) Abdomen: Soft, No tenderness, No hepatosplenomegaly, No masses, Other (Hyperactive bowel sounds) Extremities: Other (Right AKA stump with redness, ulcer, minimal skin breakdown) Skin: Other (Gluteal and right AKA ulcers) Labs Labs: Laboratory Tests Test 01/09/21 16:35 01/09/21 20:19 01/10/21 06:10 01/10/21 08:04 Glucose (Fingerstick) 168 mg/dL (70-99) 145 mg/dL (70-99) 100 mg/dL (70-99) White Blood Count 5.5 x10^3/uL (4.0-11.0) Red Blood Count 3.34 x10^6/uL (3.50-5.40) Hemoglobin 10.2 g/dL (12.0-15.5) Hematocrit 30.0 % (36.0-47.0) Mean Corpuscular Volume 90 fL (79-100) Mean Corpuscular Hemoglobin 30 pg (25-35) Mean Corpuscular Hemoglobin Concent 34 g/dL (31-37) Red Cell Distribution Width 14.1 % (11.5-14.5) Platelet Count 190 x10^3/uL (140-400) Neutrophils (%) (Auto) 77 % (31-73) Lymphocytes (%) (Auto) 12 % (24-48) Monocytes (%) (Auto) 11 % (0-9) Eosinophils (%) (Auto) 0 % (0-3) Basophils (%) (Auto) 0 % (0-3) Neutrophils # (Auto) 4.3 x10^3/uL (1.8-7.7) Lymphocytes # (Auto) 0.6 x10^3/uL (1.0-4.8) Monocytes # (Auto) 0.6 x10^3/uL (0.0-1.1) Eosinophils # (Auto) 0.0 x10^3/uL (0.0-0.7) Basophils # (Auto) 0.0 x10^3/uL (0.0-0.2) Sodium Level 139 mmol/L (136-145) Potassium Level 4.8 mmol/L (3.5-5.1) Chloride Level 108 mmol/L (98-107) Carbon Dioxide Level 25 mmol/L (21-32) Anion Gap 6 (6-14) Blood Urea Nitrogen 19 mg/dL (7-20) Creatinine 0.6 mg/dL (0.6-1.0) Estimated GFR (Cockcroft-Gault) 98.8 BUN/Creatinine Ratio 32 (6-20) Glucose Level 111 mg/dL (70-99) Calcium Level 7.7 mg/dL (8.5-10.1) Total Bilirubin 0.4 mg/dL (0.2-1.0) Aspartate Amino Transf (AST/SGOT) 22 U/L (15-37) Alanine Aminotransferase (ALT/SGPT) 19 U/L (14-59) Alkaline Phosphatase 52 U/L (46-116) Total Protein 5.3 g/dL (6.4-8.2) Albumin 1.6 g/dL (3.4-5.0) Albumin/Globulin Ratio 0.4 (1.0-1.7) Review of Systems Review of Systems: Patient denies blurry vision or loss of vision. Assessment and Plan Assessmemt and Plan Problems Medical Problems: (1) Person under investigation for COVID-19 Status: Acute Acute respiratory failure with hypoxia - due to COVID 19 Diarrhea - likely due to COVID19 Sepsis - due to COVID 19 with pneumonia UTI Abnormal CXR - pneumonia. Have been treating as gram negative given her risk of aspiration. History of diabetes mellitus type 2 - sliding scale insulin while on steroids History of hypertension COPD S/P Right AKA Debilitated Hypophosphatemia Concern for caregiver burden Gluteal ulcer - fissure Plan: 1. Continue COVID-19 Protocol: (vitamins and minerals; Robitussin; ceftriaxone; O2 per nasal cannula; dexamethasone) - Note: finished Remdisiver on 01/06 2. FEN - Soft diet- encourage PO intake 3. DVT PPX - enoxaparin 4. FULL CODE 5. Trend labs 6. Continue home meds 7. Discharge disposition pending Comment Review of Relevant I have reviewed the following items marcio (where applicable) has been applied. Justifications for Admission Other Justification diarrhea and UTI MICHELLE WRAY III DO Jan 10, 2021 11:56
[2021-01-10 15:30] VITALS: BP 116/70
[2021-01-10 19:00] VITALS: BP 124/68
[2021-01-10] MEDS: traZODone 50 MG TABLET. PO SCH (21:41)
[2021-01-10] MEDS: INSULIN GLARGINE SYRINGE. SQ SCH (21:43)
[2021-01-10 23:00] VITALS: BP 121/72
[2021-01-11] VITALS (12 sets, daily range): BP systolic 90–127; BP diastolic 53–77
[2021-01-11 05:36] LABS: ALBUMIN 1.4 g/dL (3.4-5.0); ALBUMIN/GLOBULIN RATIO 0.4 (1.0-1.7); CALCIUM 7.1 mg/dL (8.5-10.1); CREATININE 0.7 mg/dL (0.6-1.0); GFR 82.7; POTASSIUM 5.1 mmol/L (3.5-5.1); TOTAL BILIRUBIN 0.3 mg/dL (0.2-1.0); TOTAL PROTEIN 4.6 g/dL (6.4-8.2)
[2021-01-11 05:39] LABS: BASO # 0.1 x10^3/uL (0.0-0.2); BASO % 1 % (0-3); EOS % 0 % (0-3); HEMATOCRIT 21.7 % (36.0-47.0); HEMOGLOBIN 7.4 g/dL (12.0-15.5); LYMPH # 0.7 x10^3/uL (1.0-4.8); LYMPH % 9 % (24-48); MEAN CORPUSCULAR HEMOGLOBIN 31 pg (25-35); MEAN CORPUSCULAR HGB CONC 34 g/dL (31-37); MEAN CORPUSCULAR VOLUME 91 fL (79-100); MONO % 11 % (0-9); NEUT # 6.9 x10^3/uL (1.8-7.7); NEUT % 79 % (31-73); PLATELET COUNT 243 x10^3/uL (140-400); RED BLOOD COUNT 2.39 x10^6/uL (3.50-5.40); WHITE BLOOD COUNT 8.7 x10^3/uL (4.0-11.0)
[2021-01-11] MEDS: INSULIN LISPRO 300 UNITS/3 ML VIAL. SQ SCH ×6 (07:30→17:00)
[2021-01-11] MEDS: DEXAMETHASONE 4 MG TABLET PO SCH (08:00)
[2021-01-11] MEDS: IV NORMAL SALINE 1000ML BAG 1,000 ML IV SCH ×2 (08:15→22:01)
[2021-01-11] MEDS: NYSTATIN TOPICAL POWDER 15GM BOTTLE. TP SCH ×2 (09:00→20:01)
[2021-01-11] MEDS: ZINC SULFATE 220 MG CAPSULE. PO SCH (09:00)
[2021-01-11] MEDS: LISINOPRIL 5 MG TABLET. PO SCH (09:00)
[2021-01-11] MEDS: ENOXAPARIN 40 MG/0.4 ML SYRINGE. SQ SCH (09:00)
[2021-01-11] MEDS: LACTOBACILLUS RHAMNOSUS GG 1 CAPSULE. PO SCH ×2 (09:00→20:01)
[2021-01-11] MEDS: THIAMINE 100 MG TABLET. PO SCH (09:00)
[2021-01-11] MEDS: CITALOPRAM 20 MG TABLET. PO SCH (09:00)
[2021-01-11 10:06] LABS: RED BLOOD COUNT 2.12 x10^6/uL (3.50-5.40); RED CELL DISTRIBUTION WIDTH 14.2 % (11.5-14.5); WHITE BLOOD COUNT 14.5 x10^3/uL (4.0-11.0)
[2021-01-11 10:17] LABS: HEMATOCRIT 19.5 % (36.0-47.0); HEMOGLOBIN 6.6 g/dL (12.0-15.5)
--- NOTE | 2021-01-11 10:47 | PDOC ---
[facility] [facility] PROGRESS NOTE Date of Service DOS: DATE: 01/11/21 TIME: 10:20 Chief Complaint Chief Complaint CC: Acute respiratory failure with hypoxia- due to COVID-19 Diarrhea Sepsis UTI History of diabetes mellitus type 2 History of Hypertension COPD S/P Right AKA Debilitated Hypophosphatemia Gluteal Ulcer Concern for caregiver burden History of Present Illness History of Present Illness Ms Alexis is a 70yo F w/ PMHx COPD, Diabetes-Type II, GERD, Hypertension, [place], dementia, 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 Patient has been sick with Covid type symptoms for the past week with shortness of breath, progressive weakness large amounts of diarrhea that are foul-smelling decreased appetite. History provided by patient's daughter via phone notes the entire family is isolating at home from being Covid positive, patient is able to say her right leg hurts but otherwise despite hearing amplification does not give any other history and most of the history is given. Daughter over the telephone. Baseline mentation status currently of alert and oriented x1. 2 family member tested positive for Covid19 approximately 1 week ago. Patient is not vaccinated. EMS noted patient's oxygen saturation was 82% and was placed on 4 L nasal ca nnula with improvement of O2 sats to 92 to 93%. CTA chest abdomen pelvis with bilateral pulmonary opacities and colitis, no abs cess noted. Negative for pulmonary embolism WBC 11.3, Hb 12.7, platelets 195, D-dimer 6.32, NA 139, K3 0.9 mmol BUN 16, CR 0.4 glucose 135 calcium 8.1, Phos 1.9, magnesium 1.9, bilirubin 0.5, AST 100, ALT 28, alk phos 129 NT proBNP 1114, albumin 2.3, lactic acid 1.2, rapid flu negative urinalysis with small leuk esterase. Rapid COVID 19 positive Admitted for further care 01/02: Still hypoxic poor appetite. Replaced phos and lost IV access and unable to keep getting better IV access does need remdesivir and IV steroids. S/p PICC 01/03: Labs slightly improved. Still hypoxic. No complaints. PICC working well. Still requiring 4 L nasal cannula oxygen with O2 saturations 80 to 94%. 01/04: 7 L nasal cannula today with saturations 96%. Appetite low. AST down to 47. tolerating meds well. Still feeling miserable 01/05: Afebrile. O2 saturations 92% on 7 L nasal cannula. Still with poor ap petite. Glucose running in the upper to mid 300s. AST down to 47. Tolerating meds well. Day 4 of remdesivir today 01/06: Afebrile. Still requiring 2 L nasal cannula oxygen. Creatinine bumped to 1.1. Blood pressure low side reduce her lisinopril and amlodipine. Poor appetite. Remdesivir day 5 today. 01/07: Patient seen and examined. Discussed with RN. Chart reviewed. 01/08: Patient seen and examined. Blood pressure has been slightly elevated today. Glucose continues to be elevated (120-145 ) but has trended down since admission. Discussed with RN. Chart reviewed. 01/09: Patient seen and examined. Blood pressure continues to be slightly elevated. Glucose continues to be elevated (127-252), and is higher than yesterday. Discussed with RN. Chart reviewed. 01/10: Patient seen and examined. Acute mild decrease in RBC, Hct, and Hgb indicated on 01/10 labs. Discussed with RN. Chart reviewed. 01/11: Patient seen and examined. Discussed with RN. Chart reviewed. Appeared in acute moderate distress with heavy breathing. Patient had 2 episodes of melena. Labs at 5:00AM showed markedly decreased RBC (2.39) and Hgb (7.4), repeat HNH at 10:00AM showed continued decline to Hgb 6.6.. Saline bolus was given, and blood was typed for anticipated transfusion. GI called for consult. Vitals/I&O Vitals/I&O: Vital Signs Date Time Temp Pulse Resp B/P (MAP) Pulse Ox O2 Delivery O2 Flow Rate FiO2 01/11/21 07:00 98.9 123 20 90/58 (69) 90 Nasal Cannula 5.0 98.9 I & O 01/10/21 01/10/21 01/11/21 15:00 23:00 07:00 Intake Total 750 ml 425 ml Balance 750 ml 425 ml Physical Exam General: Alert, Cooperative, moderate distress Heart: Regular rate Lungs: Other (Bilateral wheezes heard over all lung posts) Abdomen: Soft, No tenderness, No hepatosplenomegaly, No masses, Other (Hyperactive bowel sounds) Extremities: Other (Right AKA stump with redness, ulcer, minimal skin breakdown) Skin: Other (Gluteal and right AKA ulcers) Labs Labs: Laboratory Tests Test 01/10/21 12:07 01/10/21 16:57 01/10/21 21:25 01/11/21 05:00 Glucose (Fingerstick) 116 mg/dL (70-99) 178 mg/dL (70-99) 259 mg/dL (70-99) White Blood Count 8.7 x10^3/uL (4.0-11.0) Red Blood Count 2.39 x10^6/uL (3.50-5.40) Hemoglobin 7.4 g/dL (12.0-15.5) Hematocrit 21.7 % (36.0-47.0) Mean Corpuscular Volume 91 fL (79-100) Mean Corpuscular Hemoglobin 31 pg (25-35) Mean Corpuscular Hemoglobin Concent 34 g/dL (31-37) Red Cell Distribution Width 14.0 % (11.5-14.5) Platelet Count 243 x10^3/uL (140-400) Neutrophils (%) (Auto) 79 % (31-73) Lymphocytes (%) (Auto) 9 % (24-48) Monocytes (%) (Auto) 11 % (0-9) Eosinophils (%) (Auto) 0 % (0-3) Basophils (%) (Auto) 1 % (0-3) Neutrophils # (Auto) 6.9 x10^3/uL (1.8-7.7) Lymphocytes # (Auto) 0.7 x10^3/uL (1.0-4.8) Monocytes # (Auto) 1.0 x10^3/uL (0.0-1.1) Eosinophils # (Auto) 0.0 x10^3/uL (0.0-0.7) Basophils # (Auto) 0.1 x10^3/uL (0.0-0.2) Sodium Level 136 mmol/L (136-145) Potassium Level 5.1 mmol/L (3.5-5.1) Chloride Level 107 mmol/L (98-107) Carbon Dioxide Level 24 mmol/L (21-32) Anion Gap 5 (6-14) Blood Urea Nitrogen 46 mg/dL (7-20) Creatinine 0.7 mg/dL (0.6-1.0) Estimated GFR (Cockcroft-Gault) 82.7 BUN/Creatinine Ratio 66 (6-20) Glucose Level 243 mg/dL (70-99) Calcium Level 7.1 mg/dL (8.5-10.1) Total Bilirubin 0.3 mg/dL (0.2-1.0) Aspartate Amino Transf (AST/SGOT) 12 U/L (15-37) Alanine Aminotransferase (ALT/SGPT) 14 U/L (14-59) Alkaline Phosphatase 47 U/L (46-116) Total Protein 4.6 g/dL (6.4-8.2) Albumin 1.4 g/dL (3.4-5.0) Albumin/Globulin Ratio 0.4 (1.0-1.7) Test 01/11/21 07:56 01/11/21 09:52 Glucose (Fingerstick) 255 mg/dL (70-99) White Blood Count 14.5 x10^3/uL (4.0-11.0) Red Blood Count 2.12 x10^6/uL (3.50-5.40) Hemoglobin 6.6 g/dL (12.0-15.5) Hematocrit 19.5 % (36.0-47.0) Mean Corpuscular Volume 92 fL (79-100) Mean Corpuscular Hemoglobin 31 pg (25-35) Mean Corpuscular Hemoglobin Concent 34 g/dL (31-37) Red Cell Distribution Width 14.2 % (11.5-14.5) Platelet Count 254 x10^3/uL (140-400) Assessment and Plan Assessmemt and Plan Problems Medical Problems: (1) Person under investigation for COVID-19 Status: Acute Acute respiratory failure with hypoxia - due to COVID 19 Melena Diarrhea - likely due to COVID19 Sepsis - due to COVID 19 with pneumonia UTI Abnormal CXR - pneumonia. Have been treating as gram negative given her risk of aspiration. History of diabetes mellitus type 2 - sliding scale insulin while on steroids History of hypertension COPD S/P Right AKA Debilitated Hypophosphatemia Concern for caregiver burden Gluteal ulcer - fissure Plan: 1. Bood Tranfusion following blood typing (Hgb <7) - Patient was given saline bolus following acute drop in Hgb below 7 2. Order GI Consult (due to episode of melena) 3. Start IV Protinix 4. Continue COVID-19 Protocol: (vitamins and minerals; Robitussin; ceftriaxone; O2 per nasal cannula; dexamethasone) - Note: finished Remdisiver on 01/06 5. FEN - Soft diet 6. DVT PPX - enoxaparin 7. FULL CODE 8. Trend labs 9. Continue home meds 10. Discharge disposition pending Comment Review of Relevant I have reviewed the following items marcio (where applicable) has been applied. Justifications for Admission Other Justification diarrhea and UTI MICHELLE WRAY III DO Jan 11, 2021 10:47
--- NOTE | 2021-01-11 10:56 | PDOC2 ---
GI CONSULT Date of Service: DATE: 01/11/21 TIME: 10:56 Reason For Consult: GI bleed HPI: HPI: 70 y/o female who we have seen many times. H/o recurrent diverticulitis s/p sigmoid resection, recurrent C Diff, chronic abdominal pain, and poor appetite. Additionally very hard of hearing, usually unable to obtain much history from her. This time here since 01/01/21 w/ COVID-19. CT from 01/01 noted luminal collapse and wall thickening with mild surrounding hypervascularity from the cecum the transverse colon with rectosigmoid hypervascular mucosal enhancement and wall thickening. C Diff was negative 01/01. Noted w/ UTI and treated w/ Rocephin. Has been on Lovenox. Called by Dr. Bangura to see earlier this morning due to bleeding and looking pale. D/w nurse later - significant amount of melena, hypotension, increased O2 demands earlier (up to 15L) - rapid response called. Previous to this, no GI issues - didn't c/o abd pain, would eat w/ help. Vitals now improved w/ fluid bolus. Hgb from 10 to 7.4 to 6.6, BUN 19 to 46, transfusion ordered, and Dr. Bangura to speak with family re: code status (currently full). On telemetry floor; unfortunately no ICU bed available. Previous GI workup: C Diff positive: 07/2016, 11/2016, 07/2019, 01/2020, 05/2020, 08/2020. Has seen ID - treated w/ prolonged vanco taper and Questran. Colonoscopy 07/2016 (to splenic flexure) by Dr. Connell: internal hemorrhoids, active diverticulitis in sigmoid colon w/ purulent drainage, poor prep. Barium enema 02/2011: sigmoid diverticulosis, moderately redundant colon. Colonoscopy 01/2011 (to hepatic flexure): sigmoid diverticulosis, non-bleeding internal hemorrhoids. Colonoscopy 2008 (to cecum) by Dr. Ruiz: adenomatous polyp in transverse colon, diverticulosis. Additionally had colonoscopies in 2004 (Dr. Christian) and 2000 (Dr. Neal). Treated by PCP in 2016 for + H. pylori lab test. EGD 01/[address] Connell: normal esophagus, gastritis, duodenal diverticulum. EGD [address] Ruiz: neg esophageal biopsies. EGD [address] Christian: antral biopsies neg for pathology. EGD [address] Neal: +H. pylori, was treated. S/p cholecystectomy. Possible fatty liver and pancreatic atrophy on imaging. PMH: PMH: OA, GERD, diverticulitis, C Diff, HTN, CAD, UTI, ?COPD, DJD ventral hernia repair w/ mesh, right AKA (after knee replacement w/ subsequent MRSA infection), tonsillectomy, cholecystectomy, appendectomy, sigmoid resection FH: Family History: No pertinent hx Social History: Smoke: No ALCOHOL: none Drugs: None ROS: difficult to obtain, waves hello Vitals: Vitals: Vital Signs Date Time Temp Pulse Resp B/P (MAP) Pulse Ox O2 Delivery O2 Flow Rate FiO2 01/11/21 07:00 98.9 123 20 90/58 (69) 90 Nasal Cannula 5.0 98.9 Labs: Labs: Laboratory Tests Test 01/10/21 12:07 01/10/21 16:57 01/10/21 21:25 01/11/21 05:00 Glucose (Fingerstick) 116 mg/dL (70-99) 178 mg/dL (70-99) 259 mg/dL (70-99) White Blood Count 8.7 x10^3/uL (4.0-11.0) Red Blood Count 2.39 x10^6/uL (3.50-5.40) Hemoglobin 7.4 g/dL (12.0-15.5) Hematocrit 21.7 % (36.0-47.0) Mean Corpuscular Volume 91 fL (79-100) Mean Corpuscular Hemoglobin 31 pg (25-35) Mean Corpuscular Hemoglobin Concent 34 g/dL (31-37) Red Cell Distribution Width 14.0 % (11.5-14.5) Platelet Count 243 x10^3/uL (140-400) Neutrophils (%) (Auto) 79 % (31-73) Lymphocytes (%) (Auto) 9 % (24-48) Monocytes (%) (Auto) 11 % (0-9) Eosinophils (%) (Auto) 0 % (0-3) Basophils (%) (Auto) 1 % (0-3) Neutrophils # (Auto) 6.9 x10^3/uL (1.8-7.7) Lymphocytes # (Auto) 0.7 x10^3/uL (1.0-4.8) Monocytes # (Auto) 1.0 x10^3/uL (0.0-1.1) Eosinophils # (Auto) 0.0 x10^3/uL (0.0-0.7) Basophils # (Auto) 0.1 x10^3/uL (0.0-0.2) Sodium Level 136 mmol/L (136-145) Potassium Level 5.1 mmol/L (3.5-5.1) Chloride Level 107 mmol/L (98-107) Carbon Dioxide Level 24 mmol/L (21-32) Anion Gap 5 (6-14) Blood Urea Nitrogen 46 mg/dL (7-20) Creatinine 0.7 mg/dL (0.6-1.0) Estimated GFR (Cockcroft-Gault) 82.7 BUN/Creatinine Ratio 66 (6-20) Glucose Level 243 mg/dL (70-99) Calcium Level 7.1 mg/dL (8.5-10.1) Total Bilirubin 0.3 mg/dL (0.2-1.0) Aspartate Amino Transf (AST/SGOT) 12 U/L (15-37) Alanine Aminotransferase (ALT/SGPT) 14 U/L (14-59) Alkaline Phosphatase 47 U/L (46-116) Total Protein 4.6 g/dL (6.4-8.2) Albumin 1.4 g/dL (3.4-5.0) Albumin/Globulin Ratio 0.4 (1.0-1.7) Test 01/11/21 07:56 01/11/21 09:52 Glucose (Fingerstick) 255 mg/dL (70-99) White Blood Count 14.5 x10^3/uL (4.0-11.0) Red Blood Count 2.12 x10^6/uL (3.50-5.40) Hemoglobin 6.6 g/dL (12.0-15.5) Hematocrit 19.5 % (36.0-47.0) Mean Corpuscular Volume 92 fL (79-100) Mean Corpuscular Hemoglobin 31 pg (25-35) Mean Corpuscular Hemoglobin Concent 34 g/dL (31-37) Red Cell Distribution Width 14.2 % (11.5-14.5) Platelet Count 254 x10^3/uL (140-400) URINE CULTURE Final Final 80,000 CFU/ML GRAM NEGATIVE RODS on 01/02/21 at 0801 FINAL ID= [PROTEUS MIRABILIS/PENNERI] FINAL ID= [KLEBSIELLA PNEUMONIAE] BLOOD CULTURE Final NO GROWTH AFTER 5 DAYS Allergies: Coded Allergies: codeine (Verified Allergy, Intermediate, TOLERATES MORPHINE, 02/06/20) TOLERATES MORPHINE I S O L A T I O N *CONTACT* (Verified Allergy, Unknown, 06/14/20) C Diff meperidine (Verified Adverse Reaction, Intermediate, Nausea and Vomiting, 02/06/20) Medications: see EMR Imaging: Imaging: CXR 01/02 IMPRESSION: Left PICC line tip proximal right atrium. Cardiomegaly stable. Diffuse pulmonary interstitial and alveolar infiltrates grossly stable. C/A/P CT 01/01 Chest findings: Mild tortuosity of the thoracic aorta. Ascending aorta diameter 3.2 cm. No thoracic aortic aneurysm or dissection. Calcified plaque left coronary artery and of the descending thoracic aorta. Mild cardiomegaly. Esophagus unremarkable. No enlarged adenopathy in the chest. No pulmonary artery emboli evident. There is respiratory motion artifact resulting in misregistration of the peripheral lobar pulmonary arteries may decrease sensitivity to detect small peripheral lobar emboli. Trachea and bronchi are unremarkable. There are heterogeneous bilateral pulmonary groundglass and consolidated opacities. No pulmonary interstitial edema. No pleural effusions. Bones are unremarkable. Abdomen findings: Hypodense liver likely fatty. Cholecystectomy. Atrophy of the pancreas. 3 cm duodenal diverticulum at the head of the pancreas. Bilateral renal parapelvic cysts. Adrenals and spleen are unremarkable. Aortoiliac artery calcified plaque. No bowel obstruction. Appendix is absent. There is luminal collapse and wall thickening with mild surrounding hypervascularity from the cecum the transverse colon and at the rectosigmoid colon some spurring of the descending colon. Aortoiliac artery calcified plaque. No abdominal fluid or bina opathy. Lumbar scoliosis and disc disease. Pelvis findings: Rectosigmoid hypervascular mucosal enhancement and wall thickening. Bladder, uterus, ovaries and bones are unremarkable IMPRESSION: 1. No pulmonary artery emboli. 2. Extensive pulmonary opacities most likely the sequela of viral pneumonia given history of Covid infection. 3. Colitis. PE: GEN: chronically ill, appears calm HEENT: Atraumatic, PERRL LUNGS: Venturi mask, 15L O2 HEART: tachycardic ABD: large, soft, non-tender (which is unusual for her), quiet BS, melena in rectal tube EXTREMITY/SKIN: RAKA - reviewed WC notes (wounds RAKA coccyx) NEURO/PSYCH: awake and alert, [place], waves hello and smiles A/P: A/P: COVID + pneumonia/resp failure, UTI Leukocytosis (on steroids), melena, hypotension, worsening anemia - new today H/o recurrent C Diff, poor appetite, chronic abd pain CRC screen, h/o adenomatous polyp - colonoscopy to splenic flexure in 2017 Diverticular disease, s/p sigmoid resection Hemorrhoids S/p cholecystectomy Fatty liver Wounds, debility -- Seems like UGI bleed. Agree w/ transfusion plans and PPI drip. Hold Lovenox. Await family discussion. Poor candidate for EGD. Dr. Markham to follow-up later today. GIFTY PARKINSON Jan 11, 2021 10:56
[2021-01-11] MEDS ORDERED: PANTOPRAZOLE SODIUM IV SCH (11:00)
[2021-01-11] MEDS ORDERED: NORMAL SALINE IV SCH (11:00)
[2021-01-11] MEDS ORDERED: DRIP IV SCH (11:00)
[2021-01-11] MEDS ORDERED: PANTOPRAZOLE IV PUSH 40 MG VIAL. IVP ONE (11:15)
[2021-01-11] MEDS ORDERED: IV NORMAL SALINE 500ML BAG 500 ML IV ONE (11:15)
[2021-01-11] MEDS: PANTOPRAZOLE SODIUM IV DRIP 80 MG in IV NORMAL SALINE 100ML 100 ML IV SCH ×2 (11:29→20:02)
--- NOTE | 2021-01-11 11:45 | NUR ---
staff was in room at 0800 to set patient up to eat breakfast. RN observed black stool covering bed. as staff was changing patient, copious amounts of stool continued to come out. pt BP was 95/56, O2 sat 91 on 5L NC. after cleaning patient multiple times, RN left room to check patient Hgb from a.m. labs. Hgb had dropped from 10/2 to 7.4 in 24 hours. Stat hemogram ordered per protocol. RN went back into room to draw and patient had more black stool on bed. pt lethargic and pale. RN called for assistance. additional staff in room to assist. BP 119/75 and HR now 117. O2 sats had decreased to 81%. O2 increased to 9L NC and rapid called. pt continued to have large amounts of liquid stool as staff was cleaning her up. RT in room and placed patient on NRB at 15L to keep sat >90. Dr. Bangura in room and ordered type/screen and 2 units. Stat H/H resulted in Hgb 6.6. 500 cc bolus given after BP 86/60. Pt BP increased to 117/65 and O2 to 96%. Rectal tube inserted. GI in to see patient. Will monitor patient.
--- NOTE | 2021-01-11 12:20 | NUR ---
SW following. Discussed with RN, pt from home with family, now on 5L oxygen but hemoglobin and BP dropped today. COVID-19 positive. SW will continue to follow.
[2021-01-11] MEDS: traZODone 50 MG TABLET. PO SCH (20:01)
[2021-01-11] MEDS: INSULIN GLARGINE SYRINGE. SQ SCH (20:18)
[2021-01-12] VITALS (8 sets, daily range): BP systolic 100–125; BP diastolic 57–73
[2021-01-12 02:30] LABS: HEMOGLOBIN 10.3 g/dL (12.0-15.5)
[2021-01-12 07:10] LABS: ALBUMIN 1.7 g/dL (3.4-5.0); ALBUMIN/GLOBULIN RATIO 0.6 (1.0-1.7); CALCIUM 7.3 mg/dL (8.5-10.1); CREATININE 0.8 mg/dL (0.6-1.0); GFR 70.9; TOTAL BILIRUBIN 0.5 mg/dL (0.2-1.0); TOTAL PROTEIN 4.7 g/dL (6.4-8.2)
[2021-01-12 07:22] LABS: BASO % 0 % (0-3); EOS # 0.1 x10^3/uL (0.0-0.7); EOS % 0 % (0-3); HEMATOCRIT 30.9 % (36.0-47.0); HEMOGLOBIN 10.4 g/dL (12.0-15.5); LYMPH # 2.7 x10^3/uL (1.0-4.8); LYMPH % 15 % (24-48); MEAN CORPUSCULAR HEMOGLOBIN 31 pg (25-35); MEAN CORPUSCULAR HGB CONC 34 g/dL (31-37); MEAN CORPUSCULAR VOLUME 93 fL (79-100); MONO # 2.1 x10^3/uL (0.0-1.1); MONO % 12 % (0-9); NEUT # 12.9 x10^3/uL (1.8-7.7); NEUT % 72 % (31-73); PLATELET COUNT 169 x10^3/uL (140-400); RED BLOOD COUNT 3.31 x10^6/uL (3.50-5.40); RED CELL DISTRIBUTION WIDTH 14.2 % (11.5-14.5); WHITE BLOOD COUNT 17.8 x10^3/uL (4.0-11.0)
[2021-01-12] MEDS: INSULIN LISPRO 300 UNITS/3 ML VIAL. SQ SCH ×6 (07:30→17:00)
[2021-01-12] MEDS: DEXAMETHASONE 4 MG TABLET PO SCH (08:00)
[2021-01-12] MEDS: ZINC SULFATE 220 MG CAPSULE. PO SCH (08:07)
[2021-01-12] MEDS: LACTOBACILLUS RHAMNOSUS GG 1 CAPSULE. PO SCH ×2 (08:07→21:00)
[2021-01-12] MEDS: LISINOPRIL 5 MG TABLET. PO SCH (08:07)
[2021-01-12] MEDS: CITALOPRAM 20 MG TABLET. PO SCH (08:07)
[2021-01-12] MEDS: THIAMINE 100 MG TABLET. PO SCH (08:08)
[2021-01-12] MEDS: NYSTATIN TOPICAL POWDER 15GM BOTTLE. TP SCH ×2 (09:59→20:56)
[2021-01-12] MEDS: PANTOPRAZOLE SODIUM IV DRIP 80 MG in IV NORMAL SALINE 100ML 100 ML IV SCH ×2 (11:00→21:13)
--- NOTE | 2021-01-12 11:54 | PDOC ---
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 Patient has been sick with Covid type symptoms for the past week with shortness of breath, progressive weakness large amounts of diarrhea that are foul-smelling decreased appetite. History provided by patient's daughter via phone notes the entire family is isolating at home from being Covid positive, patient is able to say her right leg hurts but otherwise despite hearing amplification does not give any other history and most of the history is given. Daughter over the telephone. Baseline mentation status currently of alert and oriented x1. 2 family member tested positive for Covid19 approximately 1 week ago. Patient is not vaccinated. EMS noted patient's oxygen saturation was 82% and was placed on 4 L nasal ca nnula with improvement of O2 sats to 92 to 93%. CTA chest abdomen pelvis with bilateral pulmonary opacities and colitis, no abs cess noted. Negative for pulmonary embolism WBC 11.3, Hb 12.7, platelets 195, D-dimer 6.32, NA 139, K3 0.9 mmol BUN 16, CR 0.4 glucose 135 calcium 8.1, Phos 1.9, magnesium 1.9, bilirubin 0.5, AST 100, ALT 28, alk phos 129 NT proBNP 1114, albumin 2.3, lactic acid 1.2, rapid flu negative urinalysis with small leuk esterase. Rapid COVID 19 positive Admitted for further care 01/02: Still hypoxic poor appetite. Replaced phos and lost IV access and unable to keep getting better IV access does need remdesivir and IV steroids. S/p PICC 01/03: Labs slightly improved. Still hypoxic. No complaints. PICC working well. Still requiring 4 L nasal cannula oxygen with O2 saturations 80 to 94%. 01/04: 7 L nasal cannula today with saturations 96%. Appetite low. AST down to 47. tolerating meds well. Still feeling miserable 01/05: Afebrile. O2 saturations 92% on 7 L nasal cannula. Still with poor ap petite. Glucose running in the upper to mid 300s. AST down to 47. Tolerating meds well. Day 4 of remdesivir today 01/06: Afebrile. Still requiring 2 L nasal cannula oxygen. Creatinine bumped to 1.1. Blood pressure low side reduce her lisinopril and amlodipine. Poor appetite. Remdesivir day 5 today. 01/07: Patient seen and examined. Discussed with RN. Chart reviewed. 01/08: Patient seen and examined. Blood pressure has been slightly elevated today. Glucose continues to be elevated (120-145 ) but has trended down since admission. Discussed with RN. Chart reviewed. 01/09: Patient seen and examined. Blood pressure continues to be slightly elevated. Glucose continues to be elevated (127-252), and is higher than yesterday. Discussed with RN. Chart reviewed. 01/10: Patient seen and examined. Acute mild decrease in RBC, Hct, and Hgb indicated on 01/10 labs. Discussed with RN. Chart reviewed. 01/11: Patient seen and examined. Discussed with RN. Chart reviewed. Appeared in acute moderate distress with heavy breathing. Patient had 2 episodes of melena. Labs at 5:00AM showed markedly decreased RBC (2.39) and Hgb (7.4), repeat HNH at 10:00AM showed continued decline to Hgb 6.6.. Saline bolus was given, and blood was typed for anticipated transfusion. GI called for consult. 01/12: Patient seen and examined. Discussed with RN. Chart reviewed. Patient resting in no acute distress. Discussed code status with daughter, patient is now DNR. Vitals/I&O Vitals/I&O: Vital Signs Date Time Temp Pulse Resp B/P (MAP) Pulse Ox O2 Delivery O2 Flow Rate FiO2 01/12/21 11:00 98.0 92 20 100/57 (71) 93 Nasal Cannula 5.0 98.0 I & O 01/11/21 01/11/21 01/12/21 15:00 23:00 07:00 Intake Total 200 ml 60 ml 20 ml Output Total 300 ml Balance 200 ml -240 ml 20 ml Physical Exam General: Alert, Cooperative, No acute distress Heart: Regular rate Lungs: Other (Bilateral wheezes heard over all lung posts) Abdomen: Soft, No tenderness, No hepatosplenomegaly, No masses, Other (Hyperactive bowel sounds) Extremities: Other (Right AKA stump with redness, ulcer, minimal skin breakdow n) Skin: Other (Gluteal and right AKA ulcers) Labs Labs: Laboratory Tests Test 01/11/21 11:56 01/11/21 14:20 01/11/21 17:08 01/11/21 19:45 Glucose (Fingerstick) 274 mg/dL (70-99) 177 mg/dL (70-99) 166 mg/dL (70-99) Prothrombin Time 16.0 SEC (11.7-14.0) Prothromb Time International Ratio 1.3 (0.8-1.1) Test 01/12/21 02:20 01/12/21 06:40 01/12/21 07:36 01/12/21 11:20 Hemoglobin 10.3 g/dL (12.0-15.5) 10.4 g/dL (12.0-15.5) Hematocrit 31.0 % (36.0-47.0) 30.9 % (36.0-47.0) Mean Corpuscular Hemoglobin Concent 33 g/dL (31-37) 34 g/dL (31-37) White Blood Count 17.8 x10^3/uL (4.0-11.0) Red Blood Count 3.31 x10^6/uL (3.50-5.40) Mean Corpuscular Volume 93 fL (79-100) Mean Corpuscular Hemoglobin 31 pg (25-35) Red Cell Distribution Width 14.2 % (11.5-14.5) Platelet Count 169 x10^3/uL (140-400) Neutrophils (%) (Auto) 72 % (31-73) Lymphocytes (%) (Auto) 15 % (24-48) Monocytes (%) (Auto) 12 % (0-9) Eosinophils (%) (Auto) 0 % (0-3) Basophils (%) (Auto) 0 % (0-3) Neutrophils # (Auto) 12.9 x10^3/uL (1.8-7.7) Lymphocytes # (Auto) 2.7 x10^3/uL (1.0-4.8) Monocytes # (Auto) 2.1 x10^3/uL (0.0-1.1) Eosinophils # (Auto) 0.1 x10^3/uL (0.0-0.7) Basophils # (Auto) 0.0 x10^3/uL (0.0-0.2) Sodium Level 140 mmol/L (136-145) Potassium Level 4.0 mmol/L (3.5-5.1) Chloride Level 111 mmol/L (98-107) Carbon Dioxide Level 19 mmol/L (21-32) Anion Gap 10 (6-14) Blood Urea Nitrogen 42 mg/dL (7-20) Creatinine 0.8 mg/dL (0.6-1.0) Estimated GFR (Cockcroft-Gault) 70.9 BUN/Creatinine Ratio 53 (6-20) Glucose Level 94 mg/dL (70-99) Calcium Level 7.3 mg/dL (8.5-10.1) Total Bilirubin 0.5 mg/dL (0.2-1.0) Aspartate Amino Transf (AST/SGOT) 30 U/L (15-37) Alanine Aminotransferase (ALT/SGPT) 22 U/L (14-59) Alkaline Phosphatase 56 U/L (46-116) Total Protein 4.7 g/dL (6.4-8.2) Albumin 1.7 g/dL (3.4-5.0) Albumin/Globulin Ratio 0.6 (1.0-1.7) Glucose (Fingerstick) 86 mg/dL (70-99) 81 mg/dL (70-99) Assessment and Plan Assessmemt and Plan Problems Medical Problems: (1) Person under investigation for COVID-19 Status: Acute Acute respiratory failure with hypoxia - due to COVID 19 Colitis -Melena Diarrhea - likely due to COVID19 Sepsis - due to COVID 19 with pneumonia UTI Abnormal CXR - pneumonia. Have been treating as gram negative given her risk of aspiration. History of diabetes mellitus type 2 - sliding scale insulin while on steroids History of hypertension COPD S/P Right AKA Debilitated Hypophosphatemia Concern for caregiver burden Gluteal ulcer - fissure Plan: 1. Appreciate GI consult input 3. Continue IV Protinix 4. Continue COVID-19 Protocol: (vitamins and minerals; Robitussin; ceftriaxone; O2 per nasal cannula; dexamethasone) - Note: finished Remdisiver on 01/06 5. FEN - Soft diet- encourage PO intake 6. Discontinued DVT PPX - enoxaparin 7. DNR 8. Trend labs 9. Continue home meds 10. Discharge disposition pending Comment Review of Relevant I have reviewed the following items marcio (where applicable) has been applied. Justifications for Admission Other Justification diarrhea and UTI MICHELLE WRAY III DO Jan 12, 2021 11:54
[2021-01-12] MEDS: IV NORMAL SALINE 1000ML BAG 1,000 ML IV SCH (12:17)
--- NOTE | 2021-01-12 15:09 | PDOC ---
Date of Service: DATE: 01/12/21 TIME: 15:08 Subjective: Subjective: per nurse, small black smear for BM. Received 2 units prbcs overnight. Hgb up to 10.4 Objective: Vital Signs: Vital Signs Date Time Temp Pulse Resp B/P (MAP) Pulse Ox O2 Delivery O2 Flow Rate FiO2 01/12/21 14:50 97.7 89 20 110/68 (82) 95 Nasal Cannula 5.0 97.7 Labs: Laboratory Tests Test 01/11/21 17:08 01/11/21 19:45 01/12/21 02:20 01/12/21 06:40 Glucose (Fingerstick) 177 mg/dL (70-99) 166 mg/dL (70-99) Hemoglobin 10.3 g/dL (12.0-15.5) 10.4 g/dL (12.0-15.5) Hematocrit 31.0 % (36.0-47.0) 30.9 % (36.0-47.0) Mean Corpuscular Hemoglobin Concent 33 g/dL (31-37) 34 g/dL (31-37) White Blood Count 17.8 x10^3/uL (4.0-11.0) Red Blood Count 3.31 x10^6/uL (3.50-5.40) Mean Corpuscular Volume 93 fL (79-100) Mean Corpuscular Hemoglobin 31 pg (25-35) Red Cell Distribution Width 14.2 % (11.5-14.5) Platelet Count 169 x10^3/uL (140-400) Neutrophils (%) (Auto) 72 % (31-73) Lymphocytes (%) (Auto) 15 % (24-48) Monocytes (%) (Auto) 12 % (0-9) Eosinophils (%) (Auto) 0 % (0-3) Basophils (%) (Auto) 0 % (0-3) Neutrophils # (Auto) 12.9 x10^3/uL (1.8-7.7) Lymphocytes # (Auto) 2.7 x10^3/uL (1.0-4.8) Monocytes # (Auto) 2.1 x10^3/uL (0.0-1.1) Eosinophils # (Auto) 0.1 x10^3/uL (0.0-0.7) Basophils # (Auto) 0.0 x10^3/uL (0.0-0.2) Sodium Level 140 mmol/L (136-145) Potassium Level 4.0 mmol/L (3.5-5.1) Chloride Level 111 mmol/L (98-107) Carbon Dioxide Level 19 mmol/L (21-32) Anion Gap 10 (6-14) Blood Urea Nitrogen 42 mg/dL (7-20) Creatinine 0.8 mg/dL (0.6-1.0) Estimated GFR (Cockcroft-Gault) 70.9 BUN/Creatinine Ratio 53 (6-20) Glucose Level 94 mg/dL (70-99) Calcium Level 7.3 mg/dL (8.5-10.1) Total Bilirubin 0.5 mg/dL (0.2-1.0) Aspartate Amino Transf (AST/SGOT) 30 U/L (15-37) Alanine Aminotransferase (ALT/SGPT) 22 U/L (14-59) Alkaline Phosphatase 56 U/L (46-116) Total Protein 4.7 g/dL (6.4-8.2) Albumin 1.7 g/dL (3.4-5.0) Albumin/Globulin Ratio 0.6 (1.0-1.7) Clostridium difficile Toxin (PCR) Negative (NEGATIVE) Test 01/12/21 07:36 01/12/21 11:20 Glucose (Fingerstick) 86 mg/dL (70-99) 81 mg/dL (70-99) Physical Exam: Physical Exam: did not examine Assessment & Plan: Assessment : 1) Anemia 2) melena Plan: 1) Cont PPI 2) Moniotr Hgb Justicifation of Admission Dx: Justifications for Admission: Justification of Admission Dx: N/A MICHELLE FINLEY MD Jan 12, 2021 15:09
[2021-01-12] MEDS: INSULIN GLARGINE SYRINGE. SQ SCH (20:48)
[2021-01-12] MEDS: traZODone 50 MG TABLET. PO SCH (21:00)
[2021-01-13] MEDS: IV NORMAL SALINE 1000ML BAG 1,000 ML IV SCH ×3 (02:37→14:15)
[2021-01-13 02:52] LABS: BASO % 0 % (0-3); EOS # 0.1 x10^3/uL (0.0-0.7); EOS % 1 % (0-3); HEMATOCRIT 25.6 % (36.0-47.0); HEMOGLOBIN 8.7 g/dL (12.0-15.5); LYMPH # 2.3 x10^3/uL (1.0-4.8); LYMPH % 20 % (24-48); MEAN CORPUSCULAR HEMOGLOBIN 32 pg (25-35); MEAN CORPUSCULAR HGB CONC 34 g/dL (31-37); MEAN CORPUSCULAR VOLUME 94 fL (79-100); MONO # 0.9 x10^3/uL (0.0-1.1); MONO % 8 % (0-9); NEUT # 8.3 x10^3/uL (1.8-7.7); NEUT % 71 % (31-73); PLATELET COUNT 118 x10^3/uL (140-400); RED BLOOD COUNT 2.71 x10^6/uL (3.50-5.40); RED CELL DISTRIBUTION WIDTH 14.7 % (11.5-14.5); WHITE BLOOD COUNT 11.6 x10^3/uL (4.0-11.0)
[2021-01-13 03:12] VITALS: BP 125/60
[2021-01-13 03:14] LABS: ALBUMIN 1.5 g/dL (3.4-5.0); ALBUMIN/GLOBULIN RATIO 0.5 (1.0-1.7); CALCIUM 7.2 mg/dL (8.5-10.1); CREATININE 0.7 mg/dL (0.6-1.0); GFR 82.7; POTASSIUM 3.7 mmol/L (3.5-5.1); TOTAL BILIRUBIN 0.5 mg/dL (0.2-1.0); TOTAL PROTEIN 4.4 g/dL (6.4-8.2)
[2021-01-13] MEDS: DEXTROSE 50% 25 GM / 50ML DISP.SYRIN. IV PRN ×2 (04:27→13:28)
[2021-01-13 04:30] LABS: % EOS 1 % (0-5); % LYMPHS 22 % (24-48); % MONOS 2 % (0-10); % SEGS 75 % (35-66); ANISOCYTOSIS SLIGHT; PLT ESTIMATE DECREASED (ADEQUATE); POLYCHROMASIA SLIGHT
[2021-01-13] MEDS: IV DEXTROSE 5 %-0.45 % NACL 1,000 ML IV SCH (04:44)
[2021-01-13 06:51] VITALS: BP 119/46
[2021-01-13] MEDS: INSULIN LISPRO 300 UNITS/3 ML VIAL. SQ SCH ×6 (07:30→17:00)
[2021-01-13] MEDS: PANTOPRAZOLE SODIUM IV DRIP 80 MG in IV NORMAL SALINE 100ML 100 ML IV SCH ×2 (07:31→14:15)
[2021-01-13] MEDS: NYSTATIN TOPICAL POWDER 15GM BOTTLE. TP SCH ×2 (07:31→22:13)
[2021-01-13] MEDS: LACTOBACILLUS RHAMNOSUS GG 1 CAPSULE. PO SCH ×2 (09:00→22:13)
[2021-01-13] MEDS: CITALOPRAM 20 MG TABLET. PO SCH (09:00)
[2021-01-13] MEDS: THIAMINE 100 MG TABLET. PO SCH (09:00)
[2021-01-13] MEDS: LISINOPRIL 5 MG TABLET. PO SCH (09:00)
[2021-01-13] MEDS: ZINC SULFATE 220 MG CAPSULE. PO SCH (09:00)
--- NOTE | 2021-01-13 10:52 | PDOC ---
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 Patient has been sick with Covid type symptoms for the past week with shortness of breath, progressive weakness large amounts of diarrhea that are foul-smelling decreased appetite. History provided by patient's daughter via phone notes the entire family is isolating at home from being Covid positive, patient is able to say her right leg hurts but otherwise despite hearing amplification does not give any other history and most of the history is given. Daughter over the telephone. Baseline mentation status currently of alert and oriented x1. 2 family member tested positive for Covid19 approximately 1 week ago. Patient is not vaccinated. EMS noted patient's oxygen saturation was 82% and was placed on 4 L nasal ca nnula with improvement of O2 sats to 92 to 93%. CTA chest abdomen pelvis with bilateral pulmonary opacities and colitis, no abs cess noted. Negative for pulmonary embolism WBC 11.3, Hb 12.7, platelets 195, D-dimer 6.32, NA 139, K3 0.9 mmol BUN 16, CR 0.4 glucose 135 calcium 8.1, Phos 1.9, magnesium 1.9, bilirubin 0.5, AST 100, ALT 28, alk phos 129 NT proBNP 1114, albumin 2.3, lactic acid 1.2, rapid flu negative urinalysis with small leuk esterase. Rapid COVID 19 positive Admitted for further care 01/02: Still hypoxic poor appetite. Replaced phos and lost IV access and unable to keep getting better IV access does need remdesivir and IV steroids. S/p PICC 01/03: Labs slightly improved. Still hypoxic. No complaints. PICC working well. Still requiring 4 L nasal cannula oxygen with O2 saturations 80 to 94%. 01/04: 7 L nasal cannula today with saturations 96%. Appetite low. AST down to 47. tolerating meds well. Still feeling miserable 01/05: Afebrile. O2 saturations 92% on 7 L nasal cannula. Still with poor ap petite. Glucose running in the upper to mid 300s. AST down to 47. Tolerating meds well. Day 4 of remdesivir today 01/06: Afebrile. Still requiring 2 L nasal cannula oxygen. Creatinine bumped to 1.1. Blood pressure low side reduce her lisinopril and amlodipine. Poor appetite. Remdesivir day 5 today. 01/07: Patient seen and examined. Discussed with RN. Chart reviewed. 01/08: Patient seen and examined. Blood pressure has been slightly elevated today. Glucose continues to be elevated (120-145 ) but has trended down since admission. Discussed with RN. Chart reviewed. 01/09: Patient seen and examined. Blood pressure continues to be slightly elevated. Glucose continues to be elevated (127-252), and is higher than yesterday. Discussed with RN. Chart reviewed. 01/10: Patient seen and examined. Acute mild decrease in RBC, Hct, and Hgb indicated on 01/10 labs. Discussed with RN. Chart reviewed. 01/11: Patient seen and examined. Discussed with RN. Chart reviewed. Appeared in acute moderate distress with heavy breathing. Patient had 2 episodes of melena. Labs at 5:00AM showed markedly decreased RBC (2.39) and Hgb (7.4), repeat HNH at 10:00AM showed continued decline to Hgb 6.6.. Saline bolus was given, and blood was typed for anticipated transfusion. GI called for consult. 01/12: Patient seen and examined. Discussed with RN. Chart reviewed. Patient resting in no acute distress. Discussed code status with daughter, patient is now DNR. 01/13: Patient seen and examined. Discussed with RN. Chart reviewed. Patient was resting with NAD. Hgb has decreased from 10.4 yesterday to 8.7 today. Vitals/I&O Vitals/I&O: Vital Signs Date Time Temp Pulse Resp B/P (MAP) Pulse Ox O2 Delivery O2 Flow Rate FiO2 01/13/21 06:51 98.8 77 20 119/46 (70) 99 Nasal Cannula 98.8 01/12/21 19:24 5.0 I & O 01/12/21 01/12/21 01/13/21 15:00 23:00 07:00 Intake Total 0 ml 0 ml Output Total 0 ml Balance 0 ml 0 ml 0 ml Physical Exam General: Alert, Cooperative, No acute distress Heart: Regular rate Lungs: Other (Bilateral wheezes heard over all lung posts) Abdomen: Soft, No tenderness, No hepatosplenomegaly, No masses, Other (Hyperactive bowel sounds) Extremities: Other (Right AKA stump with redness, ulcer, minimal skin breakdown) Skin: Other (Gluteal and right AKA ulcers) Labs Labs: Laboratory Tests Test 01/12/21 11:20 01/12/21 16:33 01/12/21 20:10 01/13/21 02:45 Glucose (Fingerstick) 81 mg/dL (70-99) 83 mg/dL (70-99) 71 mg/dL (70-99) White Blood Count 11.6 x10^3/uL (4.0-11.0) Red Blood Count 2.71 x10^6/uL (3.50-5.40) Hemoglobin 8.7 g/dL (12.0-15.5) Hematocrit 25.6 % (36.0-47.0) Mean Corpuscular Volume 94 fL (79-100) Mean Corpuscular Hemoglobin 32 pg (25-35) Mean Corpuscular Hemoglobin Concent 34 g/dL (31-37) Red Cell Distribution Width 14.7 % (11.5-14.5) Platelet Count 118 x10^3/uL (140-400) Neutrophils (%) (Auto) 71 % (31-73) Lymphocytes (%) (Auto) 20 % (24-48) Monocytes (%) (Auto) 8 % (0-9) Eosinophils (%) (Auto) 1 % (0-3) Basophils (%) (Auto) 0 % (0-3) Neutrophils # (Auto) 8.3 x10^3/uL (1.8-7.7) Lymphocytes # (Auto) 2.3 x10^3/uL (1.0-4.8) Monocytes # (Auto) 0.9 x10^3/uL (0.0-1.1) Eosinophils # (Auto) 0.1 x10^3/uL (0.0-0.7) Basophils # (Auto) 0.0 x10^3/uL (0.0-0.2) Segmented Neutrophils % 75 % (35-66) Lymphocytes % 22 % (24-48) Monocytes % 2 % (0-10) Eosinophils % 1 % (0-5) Platelet Estimate Decreased (ADEQUATE) Polychromasia Slight Anisocytosis Slight Sodium Level 141 mmol/L (136-145) Potassium Level 3.7 mmol/L (3.5-5.1) Chloride Level 112 mmol/L (98-107) Carbon Dioxide Level 22 mmol/L (21-32) Anion Gap 7 (6-14) Blood Urea Nitrogen 22 mg/dL (7-20) Creatinine 0.7 mg/dL (0.6-1.0) Estimated GFR (Cockcroft-Gault) 82.7 BUN/Creatinine Ratio 31 (6-20) Glucose Level 69 mg/dL (70-99) Calcium Level 7.2 mg/dL (8.5-10.1) Total Bilirubin 0.5 mg/dL (0.2-1.0) Aspartate Amino Transf (AST/SGOT) 16 U/L (15-37) Alanine Aminotransferase (ALT/SGPT) 15 U/L (14-59) Alkaline Phosphatase 42 U/L (46-116) Total Protein 4.4 g/dL (6.4-8.2) Albumin 1.5 g/dL (3.4-5.0) Albumin/Globulin Ratio 0.5 (1.0-1.7) Test 01/13/21 04:42 Glucose (Fingerstick) 135 mg/dL (70-99) Assessment and Plan Assessmemt and Plan Problems Medical Problems: (1) Person under investigation for COVID-19 Status: Acute Acute respiratory failure with hypoxia - due to COVID 19 Colitis -Melena Diarrhea - likely due to COVID19 Sepsis - due to COVID 19 with pneumonia UTI Abnormal CXR - pneumonia. Have been treating as gram negative given her risk of aspiration. History of diabetes mellitus type 2 - sliding scale insulin while on steroids History of hypertension COPD S/P Right AKA Debilitated Hypophosphatemia Concern for caregiver burden Gluteal ulcer - fissure Plan: 1. Appreciate GI consult input 2. Continue IV Protinix 3. Monitor Hgb 4. Continue COVID-19 Protocol: (vitamins and minerals; Robitussin; ceftriaxone; O2 per nasal cannula; dexamethasone) - Note: finished Remdisiver on 01/06 5. Nothing PO 6. DNR 7. Trend labs 8. Continue home meds 9. Discharge disposition pending Comment Review of Relevant I have reviewed the following items marcio (where applicable) has been applied. Medications: Current Medications Medications (Trade) Dose Ordered Sig/Haim Route PRN Reason Start Time Stop Time Status Last Admin Dose Admin Dextrose/Sodium Chloride 1,000 ml @ 50 mls/hr Q20H IV 01/13/21 04:45 01/13/21 04:44 Justifications for Admission Other Justification diarrhea and UTI MICHELLE WRAY III DO Jan 13, 2021 10:51
[2021-01-13 11:00] VITALS: BP 113/63
--- NOTE | 2021-01-13 14:39 | PDOC ---
Date of Service: DATE: 01/13/21 TIME: 14:38 Subjective: Subjective: Per nursing, only a smear of a BM. Hgb down to 8.7 Objective: Vital Signs: Vital Signs Date Time Temp Pulse Resp B/P (MAP) Pulse Ox O2 Delivery O2 Flow Rate FiO2 01/13/21 11:00 97.7 76 20 113/63 (80) 96 5.0 97.7 01/13/21 08:15 Nasal Cannula Labs: Laboratory Tests Test 01/12/21 16:33 01/12/21 20:10 01/13/21 02:45 01/13/21 04:42 Glucose (Fingerstick) 83 mg/dL (70-99) 71 mg/dL (70-99) 135 mg/dL (70-99) White Blood Count 11.6 x10^3/uL (4.0-11.0) Red Blood Count 2.71 x10^6/uL (3.50-5.40) Hemoglobin 8.7 g/dL (12.0-15.5) Hematocrit 25.6 % (36.0-47.0) Mean Corpuscular Volume 94 fL (79-100) Mean Corpuscular Hemoglobin 32 pg (25-35) Mean Corpuscular Hemoglobin Concent 34 g/dL (31-37) Red Cell Distribution Width 14.7 % (11.5-14.5) Platelet Count 118 x10^3/uL (140-400) Neutrophils (%) (Auto) 71 % (31-73) Lymphocytes (%) (Auto) 20 % (24-48) Monocytes (%) (Auto) 8 % (0-9) Eosinophils (%) (Auto) 1 % (0-3) Basophils (%) (Auto) 0 % (0-3) Neutrophils # (Auto) 8.3 x10^3/uL (1.8-7.7) Lymphocytes # (Auto) 2.3 x10^3/uL (1.0-4.8) Monocytes # (Auto) 0.9 x10^3/uL (0.0-1.1) Eosinophils # (Auto) 0.1 x10^3/uL (0.0-0.7) Basophils # (Auto) 0.0 x10^3/uL (0.0-0.2) Segmented Neutrophils % 75 % (35-66) Lymphocytes % 22 % (24-48) Monocytes % 2 % (0-10) Eosinophils % 1 % (0-5) Platelet Estimate Decreased (ADEQUATE) Polychromasia Slight Anisocytosis Slight Sodium Level 141 mmol/L (136-145) Potassium Level 3.7 mmol/L (3.5-5.1) Chloride Level 112 mmol/L (98-107) Carbon Dioxide Level 22 mmol/L (21-32) Anion Gap 7 (6-14) Blood Urea Nitrogen 22 mg/dL (7-20) Creatinine 0.7 mg/dL (0.6-1.0) Estimated GFR (Cockcroft-Gault) 82.7 BUN/Creatinine Ratio 31 (6-20) Glucose Level 69 mg/dL (70-99) Calcium Level 7.2 mg/dL (8.5-10.1) Total Bilirubin 0.5 mg/dL (0.2-1.0) Aspartate Amino Transf (AST/SGOT) 16 U/L (15-37) Alanine Aminotransferase (ALT/SGPT) 15 U/L (14-59) Alkaline Phosphatase 42 U/L (46-116) Total Protein 4.4 g/dL (6.4-8.2) Albumin 1.5 g/dL (3.4-5.0) Albumin/Globulin Ratio 0.5 (1.0-1.7) Test 01/13/21 13:11 01/13/21 14:25 Glucose (Fingerstick) 69 mg/dL (70-99) 91 mg/dL (70-99) Physical Exam: Physical Exam: did not examine Assessment & Plan: Assessment : 1) Anemia Hgb downto 8.7 from 10.4 2) melena Plan: 1) Cont PPI 2) Moniotr Hgb 3) Start clears Justicifation of Admission Dx: Justifications for Admission: Justification of Admission Dx: N/A MICHELLE FINLEY MD Jan 13, 2021 14:39
[2021-01-13 15:00] VITALS: BP 125/75
[2021-01-13 19:00] VITALS: BP 128/68
[2021-01-13] MEDS: traZODone 50 MG TABLET. PO SCH (22:13)
[2021-01-13] MEDS: INSULIN GLARGINE SYRINGE. SQ SCH (22:15)
[2021-01-13 23:00] VITALS: BP 111/45
[2021-01-14] MEDS: PANTOPRAZOLE SODIUM IV DRIP 80 MG in IV NORMAL SALINE 100ML 100 ML IV SCH (00:05)
[2021-01-14] MEDS: IV DEXTROSE 5 %-0.45 % NACL 1,000 ML IV SCH ×2 (00:07→22:03)
[2021-01-14] MEDS: IV NORMAL SALINE 1000ML BAG 1,000 ML IV SCH (02:55)
[2021-01-14 03:07] VITALS: BP 118/54
[2021-01-14 05:53] LABS: BASO % 0 % (0-3); EOS # 0.1 x10^3/uL (0.0-0.7); EOS % 1 % (0-3); HEMATOCRIT 21.9 % (36.0-47.0); HEMOGLOBIN 7.5 g/dL (12.0-15.5); LYMPH # 1.4 x10^3/uL (1.0-4.8); LYMPH % 22 % (24-48); MEAN CORPUSCULAR HEMOGLOBIN 32 pg (25-35); MEAN CORPUSCULAR HGB CONC 34 g/dL (31-37); MEAN CORPUSCULAR VOLUME 94 fL (79-100); MONO # 0.5 x10^3/uL (0.0-1.1); MONO % 9 % (0-9); NEUT # 4.2 x10^3/uL (1.8-7.7); NEUT % 67 % (31-73); PLATELET COUNT 99 x10^3/uL (140-400); RED BLOOD COUNT 2.32 x10^6/uL (3.50-5.40); RED CELL DISTRIBUTION WIDTH 14.3 % (11.5-14.5); WHITE BLOOD COUNT 6.3 x10^3/uL (4.0-11.0)
[2021-01-14 06:17] LABS: ALBUMIN 1.3 g/dL (3.4-5.0); ALBUMIN/GLOBULIN RATIO 0.5 (1.0-1.7); CALCIUM 6.9 mg/dL (8.5-10.1); CREATININE 0.6 mg/dL (0.6-1.0); GFR 98.8; POTASSIUM 3.3 mmol/L (3.5-5.1); TOTAL BILIRUBIN 0.4 mg/dL (0.2-1.0)
[2021-01-14 06:36] VITALS: BP 135/57
[2021-01-14] MEDS: INSULIN LISPRO 300 UNITS/3 ML VIAL. SQ SCH ×6 (07:30→17:00)
--- NOTE | 2021-01-14 09:08 | PDOC ---
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 Patient has been sick with Covid type symptoms for the past week with shortness of breath, progressive weakness large amounts of diarrhea that are foul-smelling decreased appetite. History provided by patient's daughter via phone notes the entire family is isolating at home from being Covid positive, patient is able to say her right leg hurts but otherwise despite hearing amplification does not give any other history and most of the history is given. Daughter over the telephone. Baseline mentation status currently of alert and oriented x1. 2 family member tested positive for Covid19 approximately 1 week ago. Patient is not vaccinated. EMS noted patient's oxygen saturation was 82% and was placed on 4 L nasal cannula with improvement of O2 sats to 92 to 93%. CTA chest abdomen pelvis with bilateral pulmonary opacities and colitis, no abscess noted. Negative for pulmonary embolism WBC 11.3, Hb 12.7, platelets 195, D-dimer 6.32, NA 139, K3 0.9 mmol BUN 16, CR 0.4 glucose 135 calcium 8.1, Phos 1.9, magnesium 1.9, bilirubin 0.5, AST 100, ALT 28, alk phos 129 NT proBNP 1114, albumin 2.3, lactic acid 1.2, rapid flu neg ative urinalysis with small leuk esterase. Rapid COVID 19 positive Admitted for further care 01/02: Still hypoxic poor appetite. Replaced phos and lost IV access and unable to keep getting better IV access does need remdesivir and IV steroids. S/p PICC 01/03: Labs slightly improved. Still hypoxic. No complaints. PICC working well. Still requiring 4 L nasal cannula oxygen with O2 saturations 80 to 94%. 01/04: 7 L nasal cannula today with saturations 96%. Appetite low. AST down to 47. tolerating meds well. Still feeling miserable 01/05: Afebrile. O2 saturations 92% on 7 L nasal cannula. Still with poor appetite. Glucose running in the upper to mid 300s. AST down to 47. Tolerating meds well. Day 4 of remdesivir today 01/06: Afebrile. Still requiring 2 L nasal cannula oxygen. Creatinine bumped to 1.1. Blood pressure low side reduce her lisinopril and amlodipine. Poor appetite. Remdesivir day 5 today. 01/07: Patient seen and examined. Discussed with RN. Chart reviewed. 01/08: Patient seen and examined. Blood pressure has been slightly elevated today. Glucose continues to be elevated (120-145 ) but has trended down since admission. Discussed with RN. Chart reviewed. 01/09: Patient seen and examined. Blood pressure continues to be slightly eleva rolly. Glucose continues to be elevated (127-252), and is higher than yesterday. Discussed with RN. Chart reviewed. 01/10: Patient seen and examined. Acute mild decrease in RBC, Hct, and Hgb indicated on 01/10 labs. Discussed with RN. Chart reviewed. 01/11: Patient seen and examined. Discussed with RN. Chart reviewed. Appeared in acute moderate distress with heavy breathing. Patient had 2 episodes of melena. Labs at 5:00AM showed markedly decreased RBC (2.39) and Hgb (7.4), repeat HNH at 10:00AM showed continued decline to Hgb 6.6.. Saline bolus was given, and blood was typed for anticipated transfusion. GI called for consult. 01/12: Patient seen and examined. Discussed with RN. Chart reviewed. Patient resting in no acute distress. Discussed code status with daughter, patient is now DNR. 01/13: Patient seen and examined. Discussed with RN. Chart reviewed. Patient was resting with NAD. Hgb has decreased from 10.4 yesterday to 8.7 today. 01/14: seen and examined. Discussed with RN. Chart reviewed. Patient was resting with NAD. Hgb has decreased from 10.4 yesterday to 8.7 01-13 Anemia Hgb downto 8.7 from 10.4 melena Cont PPI Moniotr Hgb Start clears GI CONSULT // Observe for recurrent bleeding, transfuse as needed to keep Hgb > 7. Vitals Vitals Vital Signs Date Time Temp Pulse Resp B/P (MAP) Pulse Ox O2 Delivery O2 Flow Rate FiO2 01/14/21 06:36 97.9 78 20 135/57 (83) 99 Nasal Cannula 97.9 01/13/21 20:15 4.0 Physical Exam General: Alert, Cooperative, No acute distress Heart: Regular rate, Normal S1 Lungs: Clear, Other (Bilateral wheezes heard over all lung posts) Abdomen: Normal bowel sounds, Soft, No tenderness, No hepatosplenomegaly, No masses, Other (Hyperactive bowel sounds) Extremities: Other (Right AKA stump with redness, ulcer, minimal skin breakdown) Skin: Other (Gluteal and right AKA ulcers) Labs LABS hink and talk about your own wishes for healthcare in case youre ever not able to tell your loved ones or healthcare team what your wishes are. If you became really sick tomorrow, would your loved ones or healthcare team know what your wishes were? Here are some examples of different sets of goals and health care directives for your conversations: My wish is to use all medical therapies including resuscitation (such as CPR) and artificial life-sustaining treatments (such as machines and medicine) in an intensive care unit, to keep me alive if at all possible. My wish is to live as long as possible, but I dont want attempts to bring me back to life if my heart and breathing stop. I would like full medical care but without using resuscitation or artificial life-sustaining intensive treatments, if these are unlikely to make me live longer or restore me to a certain quality of life. I will accept treatments that try to fix medical problems, but if Im not getting better or going to have a certain quality of life, I would want to switch to focusing only on my comfort and letting my happen naturally. My wish is for healthcare to focus on my comfort and lessen suffering. I would like medical care that focuses only on my quality of life and that allows me to naturally. Consider: What does a good quality of life mean for me? For many people, it is the ability to live independently and tell their own story. I may define it differently. Under what circumstances would I not want to be kept alive by medical treatments, resuscitation, or intensive care? What kind of changes to my health or life might make me change my mind? If I clearly am facing the last chapter of my life, how do I want the story to end? Who do I want to speak for me if I cant speak for myself? Do they understand my preferences? Are they willing to assume the role of my Durable Power of Digital Production Manager? Can I change my Goals of Care Designation? Yes, your Goals of Care Designation can be changed at any time. It should be reviewed if: your health condition changes your circumstances change (such as new understanding) you are transferred or admitted to another healthcare setting dpoa review, to pt portal 17 min and question review Laboratory Tests Test 01/13/21 13:11 01/13/21 14:25 01/13/21 20:24 01/14/21 05:30 Glucose (Fingerstick) 69 mg/dL (70-99) 91 mg/dL (70-99) 95 mg/dL (70-99) White Blood Count 6.3 x10^3/uL (4.0-11.0) Red Blood Count 2.32 x10^6/uL (3.50-5.40) Hemoglobin 7.5 g/dL (12.0-15.5) Hematocrit 21.9 % (36.0-47.0) Mean Corpuscular Volume 94 fL (79-100) Mean Corpuscular Hemoglobin 32 pg (25-35) Mean Corpuscular Hemoglobin Concent 34 g/dL (31-37) Red Cell Distribution Width 14.3 % (11.5-14.5) Platelet Count 99 x10^3/uL (140-400) Neutrophils (%) (Auto) 67 % (31-73) Lymphocytes (%) (Auto) 22 % (24-48) Monocytes (%) (Auto) 9 % (0-9) Eosinophils (%) (Auto) 1 % (0-3) Basophils (%) (Auto) 0 % (0-3) Neutrophils # (Auto) 4.2 x10^3/uL (1.8-7.7) Lymphocytes # (Auto) 1.4 x10^3/uL (1.0-4.8) Monocytes # (Auto) 0.5 x10^3/uL (0.0-1.1) Eosinophils # (Auto) 0.1 x10^3/uL (0.0-0.7) Basophils # (Auto) 0.0 x10^3/uL (0.0-0.2) Sodium Level 138 mmol/L (136-145) Potassium Level 3.3 mmol/L (3.5-5.1) Chloride Level 109 mmol/L (98-107) Carbon Dioxide Level 23 mmol/L (21-32) Anion Gap 6 (6-14) Blood Urea Nitrogen 8 mg/dL (7-20) Creatinine 0.6 mg/dL (0.6-1.0) Estimated GFR (Cockcroft-Gault) 98.8 BUN/Creatinine Ratio 13 (6-20) Glucose Level 80 mg/dL (70-99) Calcium Level 6.9 mg/dL (8.5-10.1) Total Bilirubin 0.4 mg/dL (0.2-1.0) Aspartate Amino Transf (AST/SGOT) 19 U/L (15-37) Alanine Aminotransferase (ALT/SGPT) 21 U/L (14-59) Alkaline Phosphatase 46 U/L (46-116) Total Protein 4.0 g/dL (6.4-8.2) Albumin 1.3 g/dL (3.4-5.0) Albumin/Globulin Ratio 0.5 (1.0-1.7) Assessment and Plan Assessmemt and Plan Problems Medical Problems: (1) Person under investigation for COVID-19 Status: Acute Comment Review of Relevant I have reviewed the following items marcio (where applicable) has been applied. Labs Laboratory Tests Test 01/12/21 11:20 01/12/21 16:33 01/12/21 20:10 01/13/21 02:45 Glucose (Fingerstick) 81 mg/dL (70-99) 83 mg/dL (70-99) 71 mg/dL (70-99) White Blood Count 11.6 x10^3/uL (4.0-11.0) Red Blood Count 2.71 x10^6/uL (3.50-5.40) Hemoglobin 8.7 g/dL (12.0-15.5) Hematocrit 25.6 % (36.0-47.0) Mean Corpuscular Volume 94 fL (79-100) Mean Corpuscular Hemoglobin 32 pg (25-35) Mean Corpuscular Hemoglobin Concent 34 g/dL (31-37) Red Cell Distribution Width 14.7 % (11.5-14.5) Platelet Count 118 x10^3/uL (140-400) Neutrophils (%) (Auto) 71 % (31-73) Lymphocytes (%) (Auto) 20 % (24-48) Monocytes (%) (Auto) 8 % (0-9) Eosinophils (%) (Auto) 1 % (0-3) Basophils (%) (Auto) 0 % (0-3) Neutrophils # (Auto) 8.3 x10^3/uL (1.8-7.7) Lymphocytes # (Auto) 2.3 x10^3/uL (1.0-4.8) Monocytes # (Auto) 0.9 x10^3/uL (0.0-1.1) Eosinophils # (Auto) 0.1 x10^3/uL (0.0-0.7) Basophils # (Auto) 0.0 x10^3/uL (0.0-0.2) Segmented Neutrophils % 75 % (35-66) Lymphocytes % 22 % (24-48) Monocytes % 2 % (0-10) Eosinophils % 1 % (0-5) Platelet Estimate Decreased (ADEQUATE) Polychromasia Slight Anisocytosis Slight Sodium Level 141 mmol/L (136-145) Potassium Level 3.7 mmol/L (3.5-5.1) Chloride Level 112 mmol/L (98-107) Carbon Dioxide Level 22 mmol/L (21-32) Anion Gap 7 (6-14) Blood Urea Nitrogen 22 mg/dL (7-20) Creatinine 0.7 mg/dL (0.6-1.0) Estimated GFR (Cockcroft-Gault) 82.7 BUN/Creatinine Ratio 31 (6-20) Glucose Level 69 mg/dL (70-99) Calcium Level 7.2 mg/dL (8.5-10.1) Total Bilirubin 0.5 mg/dL (0.2-1.0) Aspartate Amino Transf (AST/SGOT) 16 U/L (15-37) Alanine Aminotransferase (ALT/SGPT) 15 U/L (14-59) Alkaline Phosphatase 42 U/L (46-116) Total Protein 4.4 g/dL (6.4-8.2) Albumin 1.5 g/dL (3.4-5.0) Albumin/Globulin Ratio 0.5 (1.0-1.7) Test 01/13/21 04:42 01/13/21 13:11 01/13/21 14:25 01/13/21 20:24 Glucose (Fingerstick) 135 mg/dL (70-99) 69 mg/dL (70-99) 91 mg/dL (70-99) 95 mg/dL (70-99) Test 01/14/21 05:30 White Blood Count 6.3 x10^3/uL (4.0-11.0) Red Blood Count 2.32 x10^6/uL (3.50-5.40) Hemoglobin 7.5 g/dL (12.0-15.5) Hematocrit 21.9 % (36.0-47.0) Mean Corpuscular Volume 94 fL (79-100) Mean Corpuscular Hemoglobin 32 pg (25-35) Mean Corpuscular Hemoglobin Concent 34 g/dL (31-37) Red Cell Distribution Width 14.3 % (11.5-14.5) Platelet Count 99 x10^3/uL (140-400) Neutrophils (%) (Auto) 67 % (31-73) Lymphocytes (%) (Auto) 22 % (24-48) Monocytes (%) (Auto) 9 % (0-9) Eosinophils (%) (Auto) 1 % (0-3) Basophils (%) (Auto) 0 % (0-3) Neutrophils # (Auto) 4.2 x10^3/uL (1.8-7.7) Lymphocytes # (Auto) 1.4 x10^3/uL (1.0-4.8) Monocytes # (Auto) 0.5 x10^3/uL (0.0-1.1) Eosinophils # (Auto) 0.1 x10^3/uL (0.0-0.7) Basophils # (Auto) 0.0 x10^3/uL (0.0-0.2) Sodium Level 138 mmol/L (136-145) Potassium Level 3.3 mmol/L (3.5-5.1) Chloride Level 109 mmol/L (98-107) Carbon Dioxide Level 23 mmol/L (21-32) Anion Gap 6 (6-14) Blood Urea Nitrogen 8 mg/dL (7-20) Creatinine 0.6 mg/dL (0.6-1.0) Estimated GFR (Cockcroft-Gault) 98.8 BUN/Creatinine Ratio 13 (6-20) Glucose Level 80 mg/dL (70-99) Calcium Level 6.9 mg/dL (8.5-10.1) Total Bilirubin 0.4 mg/dL (0.2-1.0) Aspartate Amino Transf (AST/SGOT) 19 U/L (15-37) Alanine Aminotransferase (ALT/SGPT) 21 U/L (14-59) Alkaline Phosphatase 46 U/L (46-116) Total Protein 4.0 g/dL (6.4-8.2) Albumin 1.3 g/dL (3.4-5.0) Albumin/Globulin Ratio 0.5 (1.0-1.7) Laboratory Tests Test 01/13/21 13:11 01/13/21 14:25 01/13/21 20:24 01/14/21 05:30 Glucose (Fingerstick) 69 mg/dL (70-99) 91 mg/dL (70-99) 95 mg/dL (70-99) White Blood Count 6.3 x10^3/uL (4.0-11.0) Red Blood Count 2.32 x10^6/uL (3.50-5.40) Hemoglobin 7.5 g/dL (12.0-15.5) Hematocrit 21.9 % (36.0-47.0) Mean Corpuscular Volume 94 fL (79-100) Mean Corpuscular Hemoglobin 32 pg (25-35) Mean Corpuscular Hemoglobin Concent 34 g/dL (31-37) Red Cell Distribution Width 14.3 % (11.5-14.5) Platelet Count 99 x10^3/uL (140-400) Neutrophils (%) (Auto) 67 % (31-73) Lymphocytes (%) (Auto) 22 % (24-48) Monocytes (%) (Auto) 9 % (0-9) Eosinophils (%) (Auto) 1 % (0-3) Basophils (%) (Auto) 0 % (0-3) Neutrophils # (Auto) 4.2 x10^3/uL (1.8-7.7) Lymphocytes # (Auto) 1.4 x10^3/uL (1.0-4.8) Monocytes # (Auto) 0.5 x10^3/uL (0.0-1.1) Eosinophils # (Auto) 0.1 x10^3/uL (0.0-0.7) Basophils # (Auto) 0.0 x10^3/uL (0.0-0.2) Sodium Level 138 mmol/L (136-145) Potassium Level 3.3 mmol/L (3.5-5.1) Chloride Level 109 mmol/L (98-107) Carbon Dioxide Level 23 mmol/L (21-32) Anion Gap 6 (6-14) Blood Urea Nitrogen 8 mg/dL (7-20) Creatinine 0.6 mg/dL (0.6-1.0) Estimated GFR (Cockcroft-Gault) 98.8 BUN/Creatinine Ratio 13 (6-20) Glucose Level 80 mg/dL (70-99) Calcium Level 6.9 mg/dL (8.5-10.1) Total Bilirubin 0.4 mg/dL (0.2-1.0) Aspartate Amino Transf (AST/SGOT) 19 U/L (15-37) Alanine Aminotransferase (ALT/SGPT) 21 U/L (14-59) Alkaline Phosphatase 46 U/L (46-116) Total Protein 4.0 g/dL (6.4-8.2) Albumin 1.3 g/dL (3.4-5.0) Albumin/Globulin Ratio 0.5 (1.0-1.7) Microbiology 01/01/21 Urine Culture - Final, Complete 01/01/21 Antimicrobic Susceptibility - Final, Complete 01/01/21 Blood Culture - Final, Complete NO GROWTH AFTER 5 DAYS Medications Current Medications Acetaminophen (Tylenol) 1,000 mg 1X ONCE PO Last administered on 01/01/21at 06:22; Start 01/01/21 at 03:00; Stop 01/01/21 at 03:01; Status DC Ondansetron HCl (Zofran) 4 mg 1X ONCE IVP Last administered on 01/01/21at 03:19; Start 01/01/21 at 03:30; Stop 01/01/21 at 03:33; Status DC Ondansetron HCl (Zofran) 4 mg STK-MED ONCE .ROUTE ; Start 01/01/21 at 03:17; Stop 01/01/21 at 03:17; Status DC Iohexol (Omnipaque 350 Mg/ml) 100 ml 1X ONCE IV Last administered on 01/01/21at 04:02; Start 01/01/21 at 04:30; Stop 01/01/21 at 04:31; Status DC Info (CONTRAST GIVEN -- Rx MONITORING) 1 each PRN DAILY PRN MC SEE COMMENTS; Start 01/01/21 at 04:00; Stop 01/03/21 at 03:59; Status DC Ondansetron HCl (Zofran) 4 mg 1X ONCE IVP Last administered on 01/01/21at 04:15; Start 01/01/21 at 05:00; Stop 01/01/21 at 05:01; Status DC Dexamethasone Sodium Phosphate (Decadron) 10 mg 1X ONCE IV Last administered on 01/01/21at 04:34; Start 01/01/21 at 05:00; Stop 01/01/21 at 05:01; Status DC Doxycycline Hyclate 100 mg/ Dextrose 100 ml @ 50 mls/hr 1X ONCE IV Last administered on 01/01/21at 05:15; Start 01/01/21 at 05:00; Stop 01/01/21 at 06:59; Status DC Ceftriaxone Sodium (Rocephin) 1 gm 1X ONCE IVP Last administered on 01/01/21at 04:34; Start 01/01/21 at 05:00; Stop 01/01/21 at 05:01; Status DC Ondansetron HCl (Zofran) 4 mg PRN Q6HRS PRN IVP NAUSEA/VOMITING 1ST CHOICE Last administered on 01/06/21at 12:39; Start 01/01/21 at 06:15 Magnesium Sulfate/ Dextrose 100 ml @ 100 mls/hr 1X ONCE IV Last administered on 01/01/21at 08:07; Start 01/01/21 at 08:00; Stop 01/01/21 at 09:12; Status DC Potassium Phosphate 13.6 mmol/Sodium Chloride 254.5333 ml @ 127.... Q2H IV Last administered on 01/01/21at 15:24; Start 01/01/21 at 09:00; Stop 01/01/21 at 12:59; Status DC Dexamethasone Sodium Phosphate (Decadron) 6 mg DAILY IVP Last administered on 01/06/21at 09:06; Start 01/02/21 at 09:00; Stop 01/06/21 at 15:32; Status DC Remdesivir 200 mg/ Sodium Chloride 210 ml @ 210 mls/hr 1X ONCE IV Last administered on 01/01/21at 12:48; Start 01/01/21 at 09:00; Stop 01/01/21 at 09:59; Status DC Remdesivir 100 mg/ Sodium Chloride 230 ml @ 460 mls/hr Q24H IV Last administered on 01/02/21at 10:39; Start 01/02/21 at 09:00; Stop 01/03/21 at 04:16; Status DC Acetaminophen (Tylenol) 650 mg PRN Q4HRS PRN PO TEMP OVER 100.4F Last administered on 01/06/21at 21:43; Start 01/01/21 at 08:30 Amlodipine Besylate (Norvasc) 2.5 mg DAILY PO Last administered on 01/01/21at 09:40; Start 01/01/21 at 09:00; Stop 01/02/21 at 08:35; Status DC Citalopram Hydrobromide (CeleXA) 20 mg DAILY PO Last administered on 01/11/21at 09:00; Start 01/01/21 at 09:00 Lisinopril (Prinivil) 20 mg DAILY PO Last administered on 01/06/21at 09:08; Start 01/01/21 at 09:00; Stop 01/06/21 at 11:43; Status DC Nystatin (Nystop) 1 kia BID TP Last administered on 01/13/21at 22:13; Start 01/01/21 at 09:00 Olanzapine (ZyPREXA ZYDIS) 5 mg PRN BID PRN PO ANXIETY / AGITATION; Start 01/01/21 at 08:30 Trazodone HCl (Desyrel) 50 mg QHS PO Last administered on 01/13/21at 22:13; Start 01/01/21 at 21:00 Non-Formulary Medication (Ipratropium/ Albuterol Sulfate (Combivent Respimat Inhal)) 2 inh QID IH ; Start 01/01/21 at 09:00; Status UNV Insulin Human Lispro (HumaLOG) 0-9 UNITS TIDWMEALS SQ Last administered on 01/11/21 13:01; Start 01/01/21 at 12:00 Dextrose (Dextrose 50%-Water Syringe) 12.5 gm PRN Q15MIN PRN IV SEE COMMENTS Last administered on 01/13/21at 13:28; Start 01/01/21 at 08:30 Zinc Sulfate (Orazinc) 220 mg DAILY PO Last administered on 01/10/21 09:10; Start 01/01/21 at 09:00 Thiamine Mononitrate (Vitamin B-1) 100 mg DAILY PO Last administered on 01/10/21 09:15; Start 01/01/21 at 09:00 Guaifenesin (Robitussin Dm) 10 ml PRN Q6HRS PRN PO COUGH Last administered on 01/04/21 09:13; Start 01/01/21 at 08:30 Enoxaparin Sodium (Lovenox 40mg Syringe) 40 mg Q12HR SQ Last administered on 01/10/21at 21:41; Start 01/01/21 at 09:00; Stop 01/11/21 at 15:03; Status DC Amlodipine Besylate (Norvasc) 5 mg DAILY PO Last administered on 01/06/21 09:06; Start 01/02/21 at 09:00; Stop 01/06/21 at 11:43; Status DC Sodium Chloride 1,000 ml @ 75 mls/hr 1X ONCE IV Last administered on 01/02/21at 10:39; Start 01/02/21 at 09:00; Stop 01/02/21 at 22:19; Status DC Remdesivir 100 mg/ Sodium Chloride 230 ml @ 460 mls/hr Q24H IV Last administered on 01/06/21at 09:34; Start 01/03/21 at 09:00; Stop 01/06/21 at 09:29; Status DC Hydralazine HCl (Apresoline Inj) 10 mg PRN Q4HRS PRN IVP ELEVATED BP, SEE C OMMENTS Last administered on 01/04/21at 00:17; Start 01/03/21 at 06:15 Ceftriaxone Sodium (Rocephin) 1 gm Q24H IVP Last administered on 01/09/21at 17:45; Start 01/03/21 at 16:00; Stop 01/09/21 at 16:01; Status DC Insulin Glargine (Lantus Syringe) 12 unit QHS SQ Last administered on 01/13/21at 22:15; Start 01/05/21 at 21:00 Lactobacillus Rhamnosus (Culturelle) 1 cap BID PO Last administered on 01/13/21at 22:13; Start 01/05/21 at 21:00 Insulin Human Lispro (HumaLOG) 7 units 1X ONCE SQ Last administered on at 17:30; Start 01/05/21 at 17:15; Stop 01/05/21 at 17:16; Status DC Amlodipine Besylate (Norvasc) 2.5 mg DAILY PO Last administered on 01/10/21at 09:08; Start 01/07/21 at 09:00 Lisinopril (Prinivil) 5 mg DAILY PO Last administered on 01/10/21at 09:07; Start 01/07/21 at 09:00 Dexamethasone (Decadron) 4 mg [id number] PO Last administered on 01/10/21at 09:11; Start 01/07/21 at 08:00; Stop 01/13/21 at 07:59; Status DC Insulin Human Lispro (HumaLOG) 9 units 1X ONCE SQ Last administered on 01/06/21at 17:25; Start 01/06/21 at 17:15; Stop 01/06/21 at 17:16; Status DC Insulin Human Lispro (HumaLOG) 5 units TIDAC SQ Last administered on 01/11/21at 12:59; Start 01/07/21 at 07:30 Sodium Chloride 1,000 ml @ 75 mls/hr [id number] IV Last administered on 01/13/21at 02:37; Start 01/08/21 at 00:15 Pantoprazole Sodium 40 mg/ Sodium Chloride 100 ml @ 10 mls/hr Q10H IV ; Start 01/11/21 at 11:00; Stop 01/11/21 at 11:03; Status DC Pantoprazole Sodium 80 mg/ Sodium Chloride 100 ml @ 10 mls/hr Q10H IV Last administered on 01/14/21at 00:05; Start 01/11/21 at 11:30; Stop 01/15/21 at 11:29 Sodium Chloride 500 ml @ 500 mls/hr 1X ONCE IV Last administered on 01/11/21at 11:15; Start 01/11/21 at 11:15; Stop 01/11/21 at 12:14; Status DC Pantoprazole Sodium (PROTONIX VIAL for IV PUSH) 80 mg 1X ONCE IVP Last administered on 01/11/21at 11:28; Start 01/11/21 at 11:15; Stop 01/11/21 at 11:16; Status DC Dextrose/Sodium Chloride 1,000 ml @ 50 mls/hr Q20H IV Last administered on 01/14/21at 00:07; Start 01/13/21 at 04:45 Active Scripts Active Amlodipine Besylate 5 Mg Tablet 2.5 Mg PO DAILY 30 Days Cholestyramine Light Packet (Cholestyramine/Aspartame) 4 Gm Powd.pack 4 Gm PO QIDPMEDS 7 Days Vancomycin Hcl 500 Mg Vial 125 Mg PO QID 14 Days Admelog (Insulin Lispro) 100 Unit/1 Ml Vial 0 Units SQ TIDWMEALS 30 Days Culturelle (Lactobacillus Rhamnosus Gg) 1 Each Cap.sprink 1 Cap PO BID 30 Days Metamucil Fiber Singles Packet (Psyllium Husk/Aspartame) 3.4 Gm Powd.pack 1 Pkt PO QHS 30 Days Dok (Docusate Sodium) 100 Mg Capsule 100 Mg PO PRN BID PRN 30 Days Olanzapine Odt (Olanzapine) 5 Mg Tab.rapdis 5 Mg PO PRN BID PRN 14 Days Tylenol (Acetaminophen) 325 Mg Tablet 650 Mg PO PRN Q4HRS PRN 30 Days Combivent Respimat Inhal (Ipratropium/Albuterol Sulfate) 4 Gm Aer.w.adap 2 Inh IH QID 30 Days Reported Viberzi (Eluxadoline) 75 Mg Tablet 75 Mg PO BID Trazodone Hcl 50 Mg Tablet 1 Tab PO QHS Celexa (Citalopram Hydrobromide) 20 Mg Tablet 1 Tab PO DAILY Zofran (Ondansetron Hcl) 4 Mg Tablet 1 Tab PO PRN Q4HRS PRN Lisinopril 20 Mg Tablet 1 Tab PO DAILY Nystatin 15 Gm Powder 1 Kia TP BID Vesicare (Solifenacin Succinate) 10 Mg Tablet 1 Tab PO DAILY Flomax (Tamsulosin Hcl) 0.4 Mg Cap.er.24h 1 Cap PO HS Vitals/I & O Vital Sign - Last 24 Hours 01/13/21 01/13/21 01/13/21 01/13/21 11:00 15:00 19:00 20:15 Temp 97.7 98.3 98.0 97.7 98.3 98.0 Pulse 76 98 87 Resp 20 24 18 B/P (MAP) 113/63 (80) 125/75 (92) 128/68 (88) Pulse Ox 96 96 91 O2 Delivery Nasal Cannula Nasal Cannula Nasal Cannula O2 Flow Rate 5.0 5.0 4.0 01/13/21 01/14/21 01/14/21 23:00 03:07 06:36 Temp 98.4 98.1 97.9 98.4 98.1 97.9 Pulse 91 76 78 Resp 18 18 20 B/P (MAP) 111/45 (67) 118/54 (75) 135/57 (83) Pulse Ox 95 96 99 O2 Delivery Nasal Cannula Nasal Cannula Nasal Cannula Intake and Output 01/13/21 01/13/21 01/14/21 15:00 23:00 07:00 Intake Total 0 ml 400 ml 1100 ml Balance 0 ml 400 ml 1100 ml Justicifation of Admission Dx: Justifications for Admission: Justification of Admission Dx: N/A ABHISHEK DANIELSON MD Jan 14, 2021 09:08
[2021-01-14] MEDS: CITALOPRAM 20 MG TABLET. PO SCH (09:54)
[2021-01-14] MEDS: LACTOBACILLUS RHAMNOSUS GG 1 CAPSULE. PO SCH ×2 (09:54→22:01)
[2021-01-14] MEDS: LISINOPRIL 5 MG TABLET. PO SCH (09:55)
[2021-01-14] MEDS: ZINC SULFATE 220 MG CAPSULE. PO SCH (09:55)
[2021-01-14] MEDS: THIAMINE 100 MG TABLET. PO SCH (09:55)
--- NOTE | 2021-01-14 10:28 | PDOC ---
Date of Service: DATE: 01/14/21 TIME: 10:20 Subjective: Subjective: No meaningful history from patient. Objective: Objective: 2 stools charted. Nurse says hasn't seen any stools/bleeding. Vital Signs: Vital Signs Date Time Temp Pulse Resp B/P (MAP) Pulse Ox O2 Delivery O2 Flow Rate FiO2 01/14/21 09:55 78 135/57 01/14/21 06:36 97.9 20 99 Nasal Cannula 97.9 01/13/21 20:15 4.0 Labs: Laboratory Tests Test 01/13/21 13:11 01/13/21 14:25 01/13/21 20:24 01/14/21 05:30 Glucose (Fingerstick) 69 mg/dL 91 mg/dL 95 mg/dL White Blood Count 6.3 x10^3/uL Red Blood Count 2.32 x10^6/uL Hemoglobin 7.5 g/dL Hematocrit 21.9 % Mean Corpuscular Volume 94 fL Mean Corpuscular Hemoglobin 32 pg Mean Corpuscular Hemoglobin Concent 34 g/dL Red Cell Distribution Width 14.3 % Platelet Count 99 x10^3/uL Neutrophils (%) (Auto) 67 % Lymphocytes (%) (Auto) 22 % Monocytes (%) (Auto) 9 % Eosinophils (%) (Auto) 1 % Basophils (%) (Auto) 0 % Neutrophils # (Auto) 4.2 x10^3/uL Lymphocytes # (Auto) 1.4 x10^3/uL Monocytes # (Auto) 0.5 x10^3/uL Eosinophils # (Auto) 0.1 x10^3/uL Basophils # (Auto) 0.0 x10^3/uL Sodium Level 138 mmol/L Potassium Level 3.3 mmol/L Chloride Level 109 mmol/L Carbon Dioxide Level 23 mmol/L Anion Gap 6 Blood Urea Nitrogen 8 mg/dL Creatinine 0.6 mg/dL Estimated GFR (Cockcroft-Gault) 98.8 BUN/Creatinine Ratio 13 Glucose Level 80 mg/dL Calcium Level 6.9 mg/dL Total Bilirubin 0.4 mg/dL Aspartate Amino Transf (AST/SGOT) 19 U/L Alanine Aminotransferase (ALT/SGPT) 21 U/L Alkaline Phosphatase 46 U/L Total Protein 4.0 g/dL Albumin 1.3 g/dL Albumin/Globulin Ratio 0.5 PE: GEN: NAD in COVID isolation LUNGS: 4L NC HEART: RRR ABD: soft, non-tender NEURO/PSYCH: awake, [place], waves and smiles, gives me the "so-so" hand signal A/P: COVID + Melena - resolved? Anemia - required transfusions on Thu, some drift in Hgb since H/o recurrent C Diff, poor appetite, chronic abd pain, s/p sigmoid resection - C Diff negative x 2 this admission Wounds, debility -- Keep to clears for now - will discuss advancing diet w/ Dr. Markham. Change to PO PPI. Observe for recurrent bleeding, transfuse as needed to keep Hgb > 7. Justicifation of Admission Dx: Justifications for Admission: Justification of Admission Dx: N/A GIFTY PARKINSON Jan 14, 2021 10:28
[2021-01-14] MEDS: NYSTATIN TOPICAL POWDER 15GM BOTTLE. TP SCH ×2 (10:50→22:01)
[2021-01-14 11:00] VITALS: BP 137/66
--- NOTE | 2021-01-14 11:10 | NUR ---
SW following. Discussed with RN, pt from home with family, 4L (does not use oxygen at home), clear liquid diet. COVID-19 positive. Pt needs an endoscopy but oxygen requirement preventing this. Pt's hemoglobin low again today. Plan is home with family at discharge. SW will continue to follow.
[2021-01-14] MEDS: POTASSIUM CHLORIDE 20MEQ 100 ML IV SCH ×2 (14:57→16:23)
[2021-01-14 15:00] VITALS: BP 120/60
--- NOTE | 2021-01-14 15:15 | NUR ---
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 Patient is well known to team from the wound clinic. Wounds cleansed, assessed and redressed. Pericare completed, pt changed, urine incontinence noted. Treatment Recommendations/Plan: Cleanse all wound with saline or wound wash, then pat dry. Right AKA: cover with Aquacel AG and then cover with foam dressing, change every 2-3 days. Coccyx: apply Calazime cream and Nystatin powder bid and prn, unable to maintain a dressing to cover area d/t incontinence and location Groins/folds/pannus: apply Nystatin powder BID Education provided: Patient very [place] unable to educate but follows commands as she is familiar with wound care Offloading surface/device: P500 bed, purple wedge, pillows to elevate Recommended Referrals/Tests: N/A Discharge Recommendations for dressings: same as treatment plan above
[2021-01-14] MEDS: PANTOPRAZOLE 40 MG TABLET.DR. PO SCH (16:23)
[2021-01-14 19:00] VITALS: BP 135/69
[2021-01-14] MEDS: traZODone 50 MG TABLET. PO SCH (22:01)
[2021-01-14 23:00] VITALS: BP 145/69
[2021-01-15 03:00] VITALS: BP 117/53
[2021-01-15 07:00] VITALS: BP 138/62
[2021-01-15 07:01] LABS: BASO # 0.1 x10^3/uL (0.0-0.2); BASO % 1 % (0-3); EOS # 0.1 x10^3/uL (0.0-0.7); EOS % 2 % (0-3); HEMATOCRIT 24.9 % (36.0-47.0); HEMOGLOBIN 8.6 g/dL (12.0-15.5); LYMPH # 1.6 x10^3/uL (1.0-4.8); LYMPH % 21 % (24-48); MEAN CORPUSCULAR HEMOGLOBIN 32 pg (25-35); MEAN CORPUSCULAR HGB CONC 34 g/dL (31-37); MEAN CORPUSCULAR VOLUME 94 fL (79-100); MONO # 0.7 x10^3/uL (0.0-1.1); MONO % 9 % (0-9); NEUT # 4.9 x10^3/uL (1.8-7.7); NEUT % 66 % (31-73); PLATELET COUNT 126 x10^3/uL (140-400); RED BLOOD COUNT 2.65 x10^6/uL (3.50-5.40); RED CELL DISTRIBUTION WIDTH 14.6 % (11.5-14.5); WHITE BLOOD COUNT 7.4 x10^3/uL (4.0-11.0)
[2021-01-15 07:07] LABS: ALBUMIN 1.5 g/dL (3.4-5.0); ALBUMIN/GLOBULIN RATIO 0.5 (1.0-1.7); CALCIUM 7.4 mg/dL (8.5-10.1); CREATININE 0.6 mg/dL (0.6-1.0); GFR 98.8; TOTAL BILIRUBIN 0.5 mg/dL (0.2-1.0); TOTAL PROTEIN 4.8 g/dL (6.4-8.2)
[2021-01-15] MEDS: INSULIN LISPRO 300 UNITS/3 ML VIAL. SQ SCH ×6 (07:30→16:55)
[2021-01-15] MEDS: PANTOPRAZOLE 40 MG TABLET.DR. PO SCH ×2 (07:55→16:39)
--- NOTE | 2021-01-15 08:55 | PDOC ---
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 Patient has been sick with Covid type symptoms for the past week with shortness of breath, progressive weakness large amounts of diarrhea that are foul-smelling decreased appetite. History provided by patient's daughter via phone notes the entire family is isolating at home from being Covid positive, patient is able to say her right leg hurts but otherwise despite hearing amplification does not give any other history and most of the history is given. Daughter over the telephone. Baseline mentation status currently of alert and oriented x1. 2 family member tested positive for Covid19 approximately 1 week ago. Patient is not vaccinated. EMS noted patient's oxygen saturation was 82% and was placed on 4 L nasal cannula with improvement of O2 sats to 92 to 93%. CTA chest abdomen pelvis with bilateral pulmonary opacities and colitis, no abscess noted. Negative for pulmonary embolism WBC 11.3, Hb 12.7, platelets 195, D-dimer 6.32, NA 139, K3 0.9 mmol BUN 16, CR 0.4 glucose 135 calcium 8.1, Phos 1.9, magnesium 1.9, bilirubin 0.5, AST 100, ALT 28, alk phos 129 NT proBNP 1114, albumin 2.3, lactic acid 1.2, rapid flu neg ative urinalysis with small leuk esterase. Rapid COVID 19 positive Admitted for further care 01/02: Still hypoxic poor appetite. Replaced phos and lost IV access and unable to keep getting better IV access does need remdesivir and IV steroids. S/p PICC 01/03: Labs slightly improved. Still hypoxic. No complaints. PICC working well. Still requiring 4 L nasal cannula oxygen with O2 saturations 80 to 94%. 01/04: 7 L nasal cannula today with saturations 96%. Appetite low. AST down to 47. tolerating meds well. Still feeling miserable 01/05: Afebrile. O2 saturations 92% on 7 L nasal cannula. Still with poor appetite. Glucose running in the upper to mid 300s. AST down to 47. Tolerating meds well. Day 4 of remdesivir today 01/06: Afebrile. Still requiring 2 L nasal cannula oxygen. Creatinine bumped to 1.1. Blood pressure low side reduce her lisinopril and amlodipine. Poor appetite. Remdesivir day 5 today. 01/07: Patient seen and examined. Discussed with RN. Chart reviewed. 01/08: Patient seen and examined. Blood pressure has been slightly elevated today. Glucose continues to be elevated (120-145 ) but has trended down since admission. Discussed with RN. Chart reviewed. 01/09: Patient seen and examined. Blood pressure continues to be slightly eleva rolly. Glucose continues to be elevated (127-252), and is higher than yesterday. Discussed with RN. Chart reviewed. 01/10: Patient seen and examined. Acute mild decrease in RBC, Hct, and Hgb indicated on 01/10 labs. Discussed with RN. Chart reviewed. 01/11: Patient seen and examined. Discussed with RN. Chart reviewed. Appeared in acute moderate distress with heavy breathing. Patient had 2 episodes of melena. Labs at 5:00AM showed markedly decreased RBC (2.39) and Hgb (7.4), repeat HNH at 10:00AM showed continued decline to Hgb 6.6.. Saline bolus was given, and blood was typed for anticipated transfusion. GI called for consult. 01/12: Patient seen and examined. Discussed with RN. Chart reviewed. Patient resting in no acute distress. Discussed code status with daughter, patient is now DNR. 01/13: Patient seen and examined. Discussed with RN. Chart reviewed. Patient was resting with NAD. Hgb has decreased from 10.4 yesterday to 8.7 today. 01/14: seen and examined. Discussed with RN. Chart reviewed. Patient was resting with NAD. Hgb has decreased from 10.4 yesterday to 8.7 01-13 Anemia Hgb downto 8.7 from 10.4 melena Cont PPI Moniotr Hgb diet clears GI CONSULT // Observe for recurrent bleeding, transfuse as needed to keep Hgb > 7. 01/15: seen and examined. Discussed with RN. Chart reviewed. Patient was resting with NAD. Hgb has decreased from 10.4 yesterday to 8.7 8-29 Anemia Hgb downto 8.7 from 10.4 melena Cont PPI Moniotr Hgb diet clears D/W RN GI CONSULT // Observe for recurrent bleeding, transfuse as needed to keep Hgb > 7. Melena/suspected UGI bleed - resolved HGB 8.6 Vitals Vitals Vital Signs Date Time Temp Pulse Resp B/P (MAP) Pulse Ox O2 Delivery O2 Flow Rate FiO2 01/15/21 08:00 Nasal Cannula 4.0 01/15/21 07:00 97.7 87 16 138/62 (87) 92 97.7 Physical Exam General: Alert, Cooperative, No acute distress Heart: Regular rate, Normal S1 Lungs: Clear, Other (Bilateral wheezes heard over all lung posts) Abdomen: Normal bowel sounds, Soft, No tenderness, No hepatosplenomegaly, No masses, Other (Hyperactive bowel sounds) Extremities: No cyanosis, No edema, Other (Right AKA stump with redness, ulcer, minimal skin breakdown) Skin: Other (Gluteal and right AKA ulcers) Labs LABS Laboratory Tests Test 01/14/21 11:48 01/14/21 17:18 01/14/21 20:16 01/15/21 06:15 Glucose (Fingerstick) 95 mg/dL (70-99) 85 mg/dL (70-99) 96 mg/dL (70-99) White Blood Count 7.4 x10^3/uL (4.0-11.0) Red Blood Count 2.65 x10^6/uL (3.50-5.40) Hemoglobin 8.6 g/dL (12.0-15.5) Hematocrit 24.9 % (36.0-47.0) Mean Corpuscular Volume 94 fL (79-100) Mean Corpuscular Hemoglobin 32 pg (25-35) Mean Corpuscular Hemoglobin Concent 34 g/dL (31-37) Red Cell Distribution Width 14.6 % (11.5-14.5) Platelet Count 126 x10^3/uL (140-400) Neutrophils (%) (Auto) 66 % (31-73) Lymphocytes (%) (Auto) 21 % (24-48) Monocytes (%) (Auto) 9 % (0-9) Eosinophils (%) (Auto) 2 % (0-3) Basophils (%) (Auto) 1 % (0-3) Neutrophils # (Auto) 4.9 x10^3/uL (1.8-7.7) Lymphocytes # (Auto) 1.6 x10^3/uL (1.0-4.8) Monocytes # (Auto) 0.7 x10^3/uL (0.0-1.1) Eosinophils # (Auto) 0.1 x10^3/uL (0.0-0.7) Basophils # (Auto) 0.1 x10^3/uL (0.0-0.2) Sodium Level 137 mmol/L (136-145) Potassium Level 4.0 mmol/L (3.5-5.1) Chloride Level 106 mmol/L (98-107) Carbon Dioxide Level 27 mmol/L (21-32) Anion Gap 4 (6-14) Blood Urea Nitrogen 3 mg/dL (7-20) Creatinine 0.6 mg/dL (0.6-1.0) Estimated GFR (Cockcroft-Gault) 98.8 BUN/Creatinine Ratio 5 (6-20) Glucose Level 88 mg/dL (70-99) Calcium Level 7.4 mg/dL (8.5-10.1) Total Bilirubin 0.5 mg/dL (0.2-1.0) Aspartate Amino Transf (AST/SGOT) 13 U/L (15-37) Alanine Aminotransferase (ALT/SGPT) 13 U/L (14-59) Alkaline Phosphatase 50 U/L (46-116) Total Protein 4.8 g/dL (6.4-8.2) Albumin 1.5 g/dL (3.4-5.0) Albumin/Globulin Ratio 0.5 (1.0-1.7) Test 01/15/21 07:36 Glucose (Fingerstick) 98 mg/dL (70-99) Assessment and Plan Assessmemt and Plan Problems Medical Problems: (1) Person under investigation for COVID-19 Status: Acute Comment Review of Relevant I have reviewed the following items marcio (where applicable) has been applied. Labs Laboratory Tests Test 01/13/21 13:11 01/13/21 14:25 01/13/21 20:24 01/14/21 05:30 Glucose (Fingerstick) 69 mg/dL (70-99) 91 mg/dL (70-99) 95 mg/dL (70-99) White Blood Count 6.3 x10^3/uL (4.0-11.0) Red Blood Count 2.32 x10^6/uL (3.50-5.40) Hemoglobin 7.5 g/dL (12.0-15.5) Hematocrit 21.9 % (36.0-47.0) Mean Corpuscular Volume 94 fL (79-100) Mean Corpuscular Hemoglobin 32 pg (25-35) Mean Corpuscular Hemoglobin Concent 34 g/dL (31-37) Red Cell Distribution Width 14.3 % (11.5-14.5) Platelet Count 99 x10^3/uL (140-400) Neutrophils (%) (Auto) 67 % (31-73) Lymphocytes (%) (Auto) 22 % (24-48) Monocytes (%) (Auto) 9 % (0-9) Eosinophils (%) (Auto) 1 % (0-3) Basophils (%) (Auto) 0 % (0-3) Neutrophils # (Auto) 4.2 x10^3/uL (1.8-7.7) Lymphocytes # (Auto) 1.4 x10^3/uL (1.0-4.8) Monocytes # (Auto) 0.5 x10^3/uL (0.0-1.1) Eosinophils # (Auto) 0.1 x10^3/uL (0.0-0.7) Basophils # (Auto) 0.0 x10^3/uL (0.0-0.2) Sodium Level 138 mmol/L (136-145) Potassium Level 3.3 mmol/L (3.5-5.1) Chloride Level 109 mmol/L (98-107) Carbon Dioxide Level 23 mmol/L (21-32) Anion Gap 6 (6-14) Blood Urea Nitrogen 8 mg/dL (7-20) Creatinine 0.6 mg/dL (0.6-1.0) Estimated GFR (Cockcroft-Gault) 98.8 BUN/Creatinine Ratio 13 (6-20) Glucose Level 80 mg/dL (70-99) Calcium Level 6.9 mg/dL (8.5-10.1) Total Bilirubin 0.4 mg/dL (0.2-1.0) Aspartate Amino Transf (AST/SGOT) 19 U/L (15-37) Alanine Aminotransferase (ALT/SGPT) 21 U/L (14-59) Alkaline Phosphatase 46 U/L (46-116) Total Protein 4.0 g/dL (6.4-8.2) Albumin 1.3 g/dL (3.4-5.0) Albumin/Globulin Ratio 0.5 (1.0-1.7) Test 01/14/21 11:48 01/14/21 17:18 01/14/21 20:16 01/15/21 06:15 Glucose (Fingerstick) 95 mg/dL (70-99) 85 mg/dL (70-99) 96 mg/dL (70-99) White Blood Count 7.4 x10^3/uL (4.0-11.0) Red Blood Count 2.65 x10^6/uL (3.50-5.40) Hemoglobin 8.6 g/dL (12.0-15.5) Hematocrit 24.9 % (36.0-47.0) Mean Corpuscular Volume 94 fL (79-100) Mean Corpuscular Hemoglobin 32 pg (25-35) Mean Corpuscular Hemoglobin Concent 34 g/dL (31-37) Red Cell Distribution Width 14.6 % (11.5-14.5) Platelet Count 126 x10^3/uL (140-400) Neutrophils (%) (Auto) 66 % (31-73) Lymphocytes (%) (Auto) 21 % (24-48) Monocytes (%) (Auto) 9 % (0-9) Eosinophils (%) (Auto) 2 % (0-3) Basophils (%) (Auto) 1 % (0-3) Neutrophils # (Auto) 4.9 x10^3/uL (1.8-7.7) Lymphocytes # (Auto) 1.6 x10^3/uL (1.0-4.8) Monocytes # (Auto) 0.7 x10^3/uL (0.0-1.1) Eosinophils # (Auto) 0.1 x10^3/uL (0.0-0.7) Basophils # (Auto) 0.1 x10^3/uL (0.0-0.2) Sodium Level 137 mmol/L (136-145) Potassium Level 4.0 mmol/L (3.5-5.1) Chloride Level 106 mmol/L (98-107) Carbon Dioxide Level 27 mmol/L (21-32) Anion Gap 4 (6-14) Blood Urea Nitrogen 3 mg/dL (7-20) Creatinine 0.6 mg/dL (0.6-1.0) Estimated GFR (Cockcroft-Gault) 98.8 BUN/Creatinine Ratio 5 (6-20) Glucose Level 88 mg/dL (70-99) Calcium Level 7.4 mg/dL (8.5-10.1) Total Bilirubin 0.5 mg/dL (0.2-1.0) Aspartate Amino Transf (AST/SGOT) 13 U/L (15-37) Alanine Aminotransferase (ALT/SGPT) 13 U/L (14-59) Alkaline Phosphatase 50 U/L (46-116) Total Protein 4.8 g/dL (6.4-8.2) Albumin 1.5 g/dL (3.4-5.0) Albumin/Globulin Ratio 0.5 (1.0-1.7) Test 01/15/21 07:36 Glucose (Fingerstick) 98 mg/dL (70-99) Laboratory Tests Test 01/14/21 11:48 01/14/21 17:18 01/14/21 20:16 01/15/21 06:15 Glucose (Fingerstick) 95 mg/dL (70-99) 85 mg/dL (70-99) 96 mg/dL (70-99) White Blood Count 7.4 x10^3/uL (4.0-11.0) Red Blood Count 2.65 x10^6/uL (3.50-5.40) Hemoglobin 8.6 g/dL (12.0-15.5) Hematocrit 24.9 % (36.0-47.0) Mean Corpuscular Volume 94 fL (79-100) Mean Corpuscular Hemoglobin 32 pg (25-35) Mean Corpuscular Hemoglobin Concent 34 g/dL (31-37) Red Cell Distribution Width 14.6 % (11.5-14.5) Platelet Count 126 x10^3/uL (140-400) Neutrophils (%) (Auto) 66 % (31-73) Lymphocytes (%) (Auto) 21 % (24-48) Monocytes (%) (Auto) 9 % (0-9) Eosinophils (%) (Auto) 2 % (0-3) Basophils (%) (Auto) 1 % (0-3) Neutrophils # (Auto) 4.9 x10^3/uL (1.8-7.7) Lymphocytes # (Auto) 1.6 x10^3/uL (1.0-4.8) Monocytes # (Auto) 0.7 x10^3/uL (0.0-1.1) Eosinophils # (Auto) 0.1 x10^3/uL (0.0-0.7) Basophils # (Auto) 0.1 x10^3/uL (0.0-0.2) Sodium Level 137 mmol/L (136-145) Potassium Level 4.0 mmol/L (3.5-5.1) Chloride Level 106 mmol/L (98-107) Carbon Dioxide Level 27 mmol/L (21-32) Anion Gap 4 (6-14) Blood Urea Nitrogen 3 mg/dL (7-20) Creatinine 0.6 mg/dL (0.6-1.0) Estimated GFR (Cockcroft-Gault) 98.8 BUN/Creatinine Ratio 5 (6-20) Glucose Level 88 mg/dL (70-99) Calcium Level 7.4 mg/dL (8.5-10.1) Total Bilirubin 0.5 mg/dL (0.2-1.0) Aspartate Amino Transf (AST/SGOT) 13 U/L (15-37) Alanine Aminotransferase (ALT/SGPT) 13 U/L (14-59) Alkaline Phosphatase 50 U/L (46-116) Total Protein 4.8 g/dL (6.4-8.2) Albumin 1.5 g/dL (3.4-5.0) Albumin/Globulin Ratio 0.5 (1.0-1.7) Test 01/15/21 07:36 Glucose (Fingerstick) 98 mg/dL (70-99) Microbiology 01/01/21 Urine Culture - Final, Complete 01/01/21 Antimicrobic Susceptibility - Final, Complete 01/01/21 Blood Culture - Final, Complete NO GROWTH AFTER 5 DAYS Medications Current Medications Acetaminophen (Tylenol) 1,000 mg 1X ONCE PO Last administered on 01/01/21at 06:22; Start 01/01/21 at 03:00; Stop 01/01/21 at 03:01; Status DC Ondansetron HCl (Zofran) 4 mg 1X ONCE IVP Last administered on 01/01/21at 03:19; Start 01/01/21 at 03:30; Stop 01/01/21 at 03:33; Status DC Ondansetron HCl (Zofran) 4 mg STK-MED ONCE .ROUTE ; Start 01/01/21 at 03:17; Stop 01/01/21 at 03:17; Status DC Iohexol (Omnipaque 350 Mg/ml) 100 ml 1X ONCE IV Last administered on 01/01/21at 04:02; Start 01/01/21 at 04:30; Stop 01/01/21 at 04:31; Status DC Info (CONTRAST GIVEN -- Rx MONITORING) 1 each PRN DAILY PRN MC SEE COMMENTS; Start 01/01/21 at 04:00; Stop 01/03/21 at 03:59; Status DC Ondansetron HCl (Zofran) 4 mg 1X ONCE IVP Last administered on 01/01/21at 04:15; Start 01/01/21 at 05:00; Stop 01/01/21 at 05:01; Status DC Dexamethasone Sodium Phosphate (Decadron) 10 mg 1X ONCE IV Last administered on 01/01/21at 04:34; Start 01/01/21 at 05:00; Stop 01/01/21 at 05:01; Status DC Doxycycline Hyclate 100 mg/ Dextrose 100 ml @ 50 mls/hr 1X ONCE IV Last administered on 01/01/21at 05:15; Start 01/01/21 at 05:00; Stop 01/01/21 at 06:59; Status DC Ceftriaxone Sodium (Rocephin) 1 gm 1X ONCE IVP Last administered on 01/01/21at 04:34; Start 01/01/21 at 05:00; Stop 01/01/21 at 05:01; Status DC Ondansetron HCl (Zofran) 4 mg PRN Q6HRS PRN IVP NAUSEA/VOMITING 1ST CHOICE Last administered on 01/06/21at 12:39; Start 01/01/21 at 06:15 Magnesium Sulfate/ Dextrose 100 ml @ 100 mls/hr 1X ONCE IV Last administered on 01/01/21at 08:07; Start 01/01/21 at 08:00; Stop 01/01/21 at 09:12; Status DC Potassium Phosphate 13.6 mmol/Sodium Chloride 254.5333 ml @ 127.... Q2H IV Last administered on 01/01/21at 15:24; Start 01/01/21 at 09:00; Stop 01/01/21 at 12:59; Status DC Dexamethasone Sodium Phosphate (Decadron) 6 mg DAILY IVP Last administered on 01/06/21at 09:06; Start 01/02/21 at 09:00; Stop 01/06/21 at 15:32; Status DC Remdesivir 200 mg/ Sodium Chloride 210 ml @ 210 mls/hr 1X ONCE IV Last administered on 01/01/21at 12:48; Start 01/01/21 at 09:00; Stop 01/01/21 at 09:59; Status DC Remdesivir 100 mg/ Sodium Chloride 230 ml @ 460 mls/hr Q24H IV Last administered on 01/02/21at 10:39; Start 01/02/21 at 09:00; Stop 01/03/21 at 04:16; Status DC Acetaminophen (Tylenol) 650 mg PRN Q4HRS PRN PO TEMP OVER 100.4F Last administered on 01/06/21at 21:43; Start 01/01/21 at 08:30 Amlodipine Besylate (Norvasc) 2.5 mg DAILY PO Last administered on 01/01/21at 09:40; Start 01/01/21 at 09:00; Stop 01/02/21 at 08:35; Status DC Citalopram Hydrobromide (CeleXA) 20 mg DAILY PO Last administered on 01/14/21at 09:54; Start 01/01/21 at 09:00 Lisinopril (Prinivil) 20 mg DAILY PO Last administered on 01/06/21at 09:08; Start 01/01/21 at 09:00; Stop 01/06/21 at 11:43; Status DC Nystatin (Nystop) 1 kia BID TP Last administered on 01/14/21 22:01; Start 01/01/21 at 09:00 Olanzapine (ZyPREXA ZYDIS) 5 mg PRN BID PRN PO ANXIETY / AGITATION; Start 01/01/21 at 08:30 Trazodone HCl (Desyrel) 50 mg QHS PO Last administered on 01/14/21 22:01; Start 01/01/21 at 21:00 Non-Formulary Medication (Ipratropium/ Albuterol Sulfate (Combivent Respimat Inhal)) 2 inh QID IH ; Start 01/01/21 at 09:00; Status UNV Insulin Human Lispro (HumaLOG) 0-9 UNITS TIDWMEALS SQ Last administered on 01/11/21 13:01; Start 01/01/21 at 12:00 Dextrose (Dextrose 50%-Water Syringe) 12.5 gm PRN Q15MIN PRN IV SEE COMMENTS Last administered on 01/13/21 13:28; Start 01/01/21 at 08:30 Zinc Sulfate (Orazinc) 220 mg DAILY PO Last administered on 01/14/21 09:55; Start 01/01/21 at 09:00 Thiamine Mononitrate (Vitamin B-1) 100 mg DAILY PO Last administered on 01/14/21 09:55; Start 01/01/21 at 09:00 Guaifenesin (Robitussin Dm) 10 ml PRN Q6HRS PRN PO COUGH Last administered on 01/04/21 09:13; Start 01/01/21 at 08:30 Enoxaparin Sodium (Lovenox 40mg Syringe) 40 mg Q12HR SQ Last administered on 01/10/21 21:41; Start 01/01/21 at 09:00; Stop 01/11/21 at 15:03; Status DC Amlodipine Besylate (Norvasc) 5 mg DAILY PO Last administered on 01/06/21 09:06; Start 01/02/21 at 09:00; Stop 01/06/21 at 11:43; Status DC Sodium Chloride 1,000 ml @ 75 mls/hr 1X ONCE IV Last administered on 01/02/21at 10:39; Start 01/02/21 at 09:00; Stop 01/02/21 at 22:19; Status DC Remdesivir 100 mg/ Sodium Chloride 230 ml @ 460 mls/hr Q24H IV Last administered on 01/06/21at 09:34; Start 01/03/21 at 09:00; Stop 01/06/21 at 09:29; Status DC Hydralazine HCl (Apresoline Inj) 10 mg PRN Q4HRS PRN IVP ELEVATED BP, SEE CO MMENTS Last administered on 01/04/21at 00:17; Start 01/03/21 at 06:15 Ceftriaxone Sodium (Rocephin) 1 gm Q24H IVP Last administered on 01/09/21at 17:45; Start 01/03/21 at 16:00; Stop 01/09/21 at 16:01; Status DC Insulin Glargine (Lantus Syringe) 12 unit QHS SQ Last administered on 01/13/21at 22:15; Start 01/05/21 at 21:00; Stop 01/14/21 at 11:53; Status DC Lactobacillus Rhamnosus (Culturelle) 1 cap BID PO Last administered on 01/14/21at 22:01; Start 01/05/21 at 21:00 Insulin Human Lispro (HumaLOG) 7 units 1X ONCE SQ Last administered on 01/05/21at 17:30; Start 01/05/21 at 17:15; Stop 01/05/21 at 17:16; Status DC Amlodipine Besylate (Norvasc) 2.5 mg DAILY PO Last administered on 01/14/21at 09:55; Start 01/07/21 at 09:00 Lisinopril (Prinivil) 5 mg DAILY PO Last administered on 01/14/21at 09:55; Start 01/07/21 at 09:00 Dexamethasone (Decadron) 4 mg [id number] PO Last administered on 01/10/21at 09:11; Start 01/07/21 at 08:00; Stop 01/13/21 at 07:59; Status DC Insulin Human Lispro (HumaLOG) 9 units 1X ONCE SQ Last administered on 01/06/21at 17:25; Start 01/06/21 at 17:15; Stop 01/06/21 at 17:16; Status DC Insulin Human Lispro (HumaLOG) 5 units TIDAC SQ Last administered on 01/11/21at 12:59; Start 01/07/21 at 07:30 Sodium Chloride 1,000 ml @ 75 mls/hr [id number] IV Last administered on 01/13/21at 02:37; Start 01/08/21 at 00:15; Stop 01/14/21 at 10:37; Status DC Pantoprazole Sodium 40 mg/ Sodium Chloride 100 ml @ 10 mls/hr Q10H IV ; Start 01/11/21 at 11:00; Stop 01/11/21 at 11:03; Status DC Pantoprazole Sodium 80 mg/ Sodium Chloride 100 ml @ 10 mls/hr Q10H IV Last administered on 01/14/21at 00:05; Start 01/11/21 at 11:30; Stop 01/14/21 at 10:29; Status DC Sodium Chloride 500 ml @ 500 mls/hr 1X ONCE IV Last administered on 01/11/21at 11:15; Start 01/11/21 at 11:15; Stop 01/11/21 at 12:14; Status DC Pantoprazole Sodium (PROTONIX VIAL for IV PUSH) 80 mg 1X ONCE IVP Last administered on 01/11/21at 11:28; Start 01/11/21 at 11:15; Stop 01/11/21 at 11:16; Status DC Dextrose/Sodium Chloride 1,000 ml @ 50 mls/hr Q20H IV Last administered on 01/14/21at 22:03; Start 01/13/21 at 04:45 Pantoprazole Sodium (Protonix) 40 mg BIDAC PO Last administered on 01/15/21at 07:55; Start 01/14/21 at 16:30 Potassium Chloride/Water 100 ml @ 100 mls/hr Q1H IV Last administered on at 16:23; Start 01/14/21 at 15:00; Stop 01/14/21 at 16:59; Status DC Active Scripts Active Amlodipine Besylate 5 Mg Tablet 2.5 Mg PO DAILY 30 Days Cholestyramine Light Packet (Cholestyramine/Aspartame) 4 Gm Powd.pack 4 Gm PO QIDPMEDS 7 Days Vancomycin Hcl 500 Mg Vial 125 Mg PO QID 14 Days Admelog (Insulin Lispro) 100 Unit/1 Ml Vial 0 Units SQ TIDWMEALS 30 Days Culturelle (Lactobacillus Rhamnosus Gg) 1 Each Cap.sprink 1 Cap PO BID 30 Days Metamucil Fiber Singles Packet (Psyllium Husk/Aspartame) 3.4 Gm Powd.pack 1 Pkt PO QHS 30 Days Dok (Docusate Sodium) 100 Mg Capsule 100 Mg PO PRN BID PRN 30 Days Olanzapine Odt (Olanzapine) 5 Mg Tab.rapdis 5 Mg PO PRN BID PRN 14 Days Tylenol (Acetaminophen) 325 Mg Tablet 650 Mg PO PRN Q4HRS PRN 30 Days Combivent Respimat Inhal (Ipratropium/Albuterol Sulfate) 4 Gm Aer.w.adap 2 Inh IH QID 30 Days Reported Viberzi (Eluxadoline) 75 Mg Tablet 75 Mg PO BID Trazodone Hcl 50 Mg Tablet 1 Tab PO QHS Celexa (Citalopram Hydrobromide) 20 Mg Tablet 1 Tab PO DAILY Zofran (Ondansetron Hcl) 4 Mg Tablet 1 Tab PO PRN Q4HRS PRN Lisinopril 20 Mg Tablet 1 Tab PO DAILY Nystatin 15 Gm Powder 1 Kia TP BID Vesicare (Solifenacin Succinate) 10 Mg Tablet 1 Tab PO DAILY Flomax (Tamsulosin Hcl) 0.4 Mg Cap.er.24h 1 Cap PO HS Vitals/I & O Vital Sign - Last 24 Hours 01/14/21 01/14/21 01/14/21 01/14/21 09:55 09:55 11:00 15:00 Temp 99.0 98.0 99.0 98.0 Pulse 78 78 84 87 Resp 22 22 B/P (MAP) 135/57 135/57 137/66 (89) 120/60 (80) Pulse Ox 99 96 O2 Delivery Nasal Cannula Nasal Cannula O2 Flow Rate 4.0 4.0 01/14/21 01/14/21 01/14/21 01/15/21 19:00 19:30 23:00 03:00 Temp 98.3 98.3 98.0 98.3 98.3 98.0 Pulse 85 83 86 Resp 18 18 18 B/P (MAP) 135/69 (91) 145/69 (94) 117/53 (74) Pulse Ox 95 94 99 O2 Delivery Nasal Cannula Nasal Cannula Nasal Cannula Nasal Cannula O2 Flow Rate 4.0 5.0 4.0 4.0 01/15/21 01/15/21 07:00 08:00 Temp 97.7 97.7 Pulse 87 Resp 16 B/P (MAP) 138/62 (87) Pulse Ox 92 O2 Delivery Nasal Cannula Nasal Cannula O2 Flow Rate 4.0 4.0 Intake and Output 01/14/21 01/14/21 01/15/21 15:00 23:00 07:00 Intake Total 500 ml 60 ml Output Total 0 ml Balance 500 ml 60 ml Justicifation of Admission Dx: Justifications for Admission: Justification of Admission Dx: N/A ABHISHEK DANIELSON MD Jan 15, 2021 08:55
[2021-01-15] MEDS: ZINC SULFATE 220 MG CAPSULE. PO SCH (09:44)
[2021-01-15] MEDS: LACTOBACILLUS RHAMNOSUS GG 1 CAPSULE. PO SCH ×2 (09:44→22:06)
[2021-01-15] MEDS: THIAMINE 100 MG TABLET. PO SCH (09:44)
[2021-01-15] MEDS: NYSTATIN TOPICAL POWDER 15GM BOTTLE. TP SCH ×2 (09:45→22:10)
[2021-01-15] MEDS: CITALOPRAM 20 MG TABLET. PO SCH (09:45)
[2021-01-15] MEDS: LISINOPRIL 5 MG TABLET. PO SCH (09:45)
--- NOTE | 2021-01-15 10:34 | PDOC ---
Date of Service: DATE: 01/15/21 TIME: 10:31 Objective: Objective: 1 stool charted, no reports of bleeding. Has soft mechanical diet ordered. Hgb increasing. Vital Signs: Vital Signs Date Time Temp Pulse Resp B/P (MAP) Pulse Ox O2 Delivery O2 Flow Rate FiO2 01/15/21 09:45 87 138/62 01/15/21 08:00 Nasal Cannula 4.0 01/15/21 07:00 97.7 16 92 97.7 Labs: Laboratory Tests Test 01/14/21 11:48 01/14/21 17:18 01/14/21 20:16 01/15/21 06:15 Glucose (Fingerstick) 95 mg/dL 85 mg/dL 96 mg/dL White Blood Count 7.4 x10^3/uL Red Blood Count 2.65 x10^6/uL Hemoglobin 8.6 g/dL Hematocrit 24.9 % Mean Corpuscular Volume 94 fL Mean Corpuscular Hemoglobin 32 pg Mean Corpuscular Hemoglobin Concent 34 g/dL Red Cell Distribution Width 14.6 % Platelet Count 126 x10^3/uL Neutrophils (%) (Auto) 66 % Lymphocytes (%) (Auto) 21 % Monocytes (%) (Auto) 9 % Eosinophils (%) (Auto) 2 % Basophils (%) (Auto) 1 % Neutrophils # (Auto) 4.9 x10^3/uL Lymphocytes # (Auto) 1.6 x10^3/uL Monocytes # (Auto) 0.7 x10^3/uL Eosinophils # (Auto) 0.1 x10^3/uL Basophils # (Auto) 0.1 x10^3/uL Sodium Level 137 mmol/L Potassium Level 4.0 mmol/L Chloride Level 106 mmol/L Carbon Dioxide Level 27 mmol/L Anion Gap 4 Blood Urea Nitrogen 3 mg/dL Creatinine 0.6 mg/dL Estimated GFR (Cockcroft-Gault) 98.8 BUN/Creatinine Ratio 5 Glucose Level 88 mg/dL Calcium Level 7.4 mg/dL Total Bilirubin 0.5 mg/dL Aspartate Amino Transf (AST/SGOT) 13 U/L Alanine Aminotransferase (ALT/SGPT) 13 U/L Alkaline Phosphatase 50 U/L Total Protein 4.8 g/dL Albumin 1.5 g/dL Albumin/Globulin Ratio 0.5 Test 8/31/21 07:36 Glucose (Fingerstick) 98 mg/dL PE: GEN: in COVID isolation - visual exam done - appears comfortable LUNGS: 4L NC HEART: RR ABD: obese - stable in appearance NEURO/PSYCH: watching tv A/P: COVID + Melena/suspected UGI bleed - resolved Anemia - better -- Improving from GI standpoint. Justicifation of Admission Dx: Justifications for Admission: Justification of Admission Dx: N/A GIFTY PARKINSON Jan 15, 2021 10:34
[2021-01-15 10:42] VITALS: BP 136/67
--- NOTE | 2021-01-15 11:06 | NUR ---
SW following. Discussed with RN, pt from home with family, 5L (does not use oxygen at home), pt improving from GI standpoint. Pt will need an ABG prior to discharge to determine oxygen needs as pt does not ambulate. SW will continue to follow.
[2021-01-15 15:00] VITALS: BP 130/64
[2021-01-15 19:41] VITALS: BP 137/53
[2021-01-15] MEDS: traZODone 50 MG TABLET. PO SCH (22:06)
[2021-01-15] MEDS: IV DEXTROSE 5 %-0.45 % NACL 1,000 ML IV SCH (22:09)
[2021-01-15 23:12] VITALS: BP 137/66
[2021-01-16 03:07] VITALS: BP 133/70
[2021-01-16 07:00] VITALS: BP 119/67
[2021-01-16] MEDS: INSULIN LISPRO 300 UNITS/3 ML VIAL. SQ SCH ×4 (07:30→12:00)
[2021-01-16] MEDS: LACTOBACILLUS RHAMNOSUS GG 1 CAPSULE. PO SCH (08:14)
[2021-01-16] MEDS: THIAMINE 100 MG TABLET. PO SCH (08:14)
[2021-01-16] MEDS: ZINC SULFATE 220 MG CAPSULE. PO SCH (08:14)
[2021-01-16] MEDS: PANTOPRAZOLE 40 MG TABLET.DR. PO SCH (08:14)
[2021-01-16] MEDS: CITALOPRAM 20 MG TABLET. PO SCH (08:15)
[2021-01-16] MEDS: LISINOPRIL 5 MG TABLET. PO SCH (08:16)
[2021-01-16] MEDS: NYSTATIN TOPICAL POWDER 15GM BOTTLE. TP SCH (08:16)
--- NOTE | 2021-01-16 10:01 | PDOC ---
Date of Service: DATE: 01/16/21 TIME: 10:00 Objective: Objective: No GI concerns per nurse. Discharge discussion this morning. Vital Signs: Vital Signs Date Time Temp Pulse Resp B/P (MAP) Pulse Ox O2 Delivery O2 Flow Rate FiO2 01/16/21 08:16 85 119/67 01/16/21 08:00 Nasal Cannula 4.0 01/16/21 07:00 98.7 18 93 98.7 Labs: Laboratory Tests Test 01/15/21 11:48 01/15/21 16:44 01/15/21 20:11 01/16/21 08:05 Glucose (Fingerstick) 98 mg/dL (70-99) 116 mg/dL (70-99) 113 mg/dL (70-99) 105 mg/dL (70-99) PE: GEN: NAD - waves LUNGS: clear, NC 4L HEART: RRR ABD: soft, non-tender NEURO/PSYCH: awake, [place] A/P: COVID + Melena/suspected UGI bleed - resolved Anemia - better/Hgb stable (checked 01/15) -- Stable GI-gonzales. DC per primary. Would continue PPI. Justicifation of Admission Dx: Justifications for Admission: Justification of Admission Dx: N/A GIFTY PARKINSON Jan 16, 2021 10:01
--- NOTE | 2021-01-16 10:07 | PDOC ---
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 Patient has been sick with Covid type symptoms for the past week with shortness of breath, progressive weakness large amounts of diarrhea that are foul-smelling decreased appetite. History provided by patient's daught er via phone notes the entire family is isolating at home from being Covid positive, patient is able to say her right leg hurts but otherwise despite hearing amplification does not give any other history and most of the history is given. Daughter over the telephone. Baseline mentation status currently of alert and oriented x1. 2 family member tested positive for Covid19 approximately 1 week ago. Patient is not vaccinated. EMS noted patient's oxygen saturation was 82% and was placed on 4 L nasal cannula with improvement of O2 sats to 92 to 93%. CTA chest abdomen pelvis with bilateral pulmonary opacities and colitis, no abscess noted. Negative for pulmonary embolism WBC 11.3, Hb 12.7, platelets 195, D-dimer 6.32, NA 139, K3 0.9 mmol BUN 16, CR 0.4 glucose 135 calcium 8.1, Phos 1.9, magnesium 1.9, bilirubin 0.5, AST 100, ALT 28, alk phos 129 NT proBNP 1114, albumin 2.3, lactic acid 1.2, rapid flu negative urinalysis with small leuk esterase. Rapid COVID 19 positive Admitted for further care 01/02: Still hypoxic poor appetite. Replaced phos and lost IV access and unable to keep getting better IV access does need remdesivir and IV steroids. S/p PICC 01/03: Labs slightly improved. Still hypoxic. No complaints. PICC working well. Still requiring 4 L nasal cannula oxygen with O2 saturations 80 to 94%. 01/04: 7 L nasal cannula today with saturations 96%. Appetite low. AST down to 47. tolerating meds well. Still feeling miserable 01/05: Afebrile. O2 saturations 92% on 7 L nasal cannula. Still with poor appetite. Glucose running in the upper to mid 300s. AST down to 47. Tolerating meds well. Day 4 of remdesivir today 01/06: Afebrile. Still requiring 2 L nasal cannula oxygen. Creatinine bumped to 1.1. Blood pressure low side reduce her lisinopril and amlodipine. Poor appetite. Remdesivir day 5 today. 01/07: Patient seen and examined. Discussed with RN. Chart reviewed. 01/08: Patient seen and examined. Blood pressure has been slightly elevated today. Glucose continues to be elevated (120-145 ) but has trended down since admission. Discussed with RN. Chart reviewed. 01/09: Patient seen and examined. Blood pressure continues to be slightly elevated. Glucose continues to be elevated (127-252), and is higher than yesterday. Discussed with RN. Chart reviewed. 01/10: Patient seen and examined. Acute mild decrease in RBC, Hct, and Hgb indicated on 01/10 labs. Discussed with RN. Chart reviewed. 01/11: Patient seen and examined. Discussed with RN. Chart reviewed. Appeared in acute moderate distress with heavy breathing. Patient had 2 episodes of melena. Labs at 5:00AM showed markedly decreased RBC (2.39) and Hgb (7.4), repeat HNH at 10:00AM showed continued decline to Hgb 6.6.. Saline bolus was given, and blood was typed for anticipated transfusion. GI called for consult. 01/12: Patient seen and examined. Discussed with RN. Chart reviewed. Patient resting in no acute distress. Discussed code status with daughter, patient is now DNR. 01/13: Patient seen and examined. Discussed with RN. Chart reviewed. Patient was resting with NAD. Hgb has decreased from 10.4 yesterday to 8.7 today. 01/14: seen and examined. Discussed with RN. Chart reviewed. Patient was resting with NAD. Hgb has decreased from 10.4 yesterday to 8.7 01-13 Anemia Hgb downto 8.7 from 10.4 melena Cont PPI Moniotr Hgb diet clears GI CONSULT // Observe for recurrent bleeding, transfuse as needed to keep Hgb > 7. 01/15: seen and examined. Discussed with RN. Chart reviewed. Patient was resting with NAD. Hgb has decreased from 10.4 yesterday to 8.7 8- Anemia Hgb downto 8.7 from 10.4 melena Cont PPI Moniotr Hgb diet clears D/W RN GI CONSULT // Observe for recurrent bleeding, transfuse as needed to keep Hgb > 7. Melena/suspected UGI bleed - resolved HGB 8.6 01/16: seen and examined. Discussed with RN. Chart reviewed. Patient was resting with NAD. Hgb has stabilized Anemia Hgb downto 8.7 from 10.4 melena Cont PPI Moniotr Hgb diet clears D/W RN GI CONSULT // Observe for recurrent bleeding, transfuse as needed to keep Hgb > 7. Melena/suspected UGI bleed - resolved HGB 8.6 home o2 2 l nc Stable GI-gonzales.per gi continue PPI. d/c planning 35 min Vitals Vitals Vital Signs Date Time Temp Pulse Resp B/P (MAP) Pulse Ox O2 Delivery O2 Flow Rate FiO2 01/16/21 08:16 85 119/67 01/16/21 08:00 Nasal Cannula 4.0 01/16/21 07:00 98.7 18 93 98.7 Physical Exam General: Alert, Cooperative, No acute distress Heart: Regular rate, Normal S1 Lungs: Clear, Other (Bilateral wheezes heard over all lung posts) Abdomen: Normal bowel sounds, Soft, No tenderness, No hepatosplenomegaly, No masses, Other (Hyperactive bowel sounds) Extremities: No cyanosis, No edema, Other (Right AKA stump with redness, ulcer, minimal skin breakdown) Skin: Other (Gluteal and right AKA ulcers) Labs LABS Laboratory Tests Test 01/15/21 11:48 01/15/21 16:44 01/15/21 20:11 01/16/21 08:05 Glucose (Fingerstick) 98 mg/dL (70-99) 116 mg/dL (70-99) 113 mg/dL (70-99) 105 mg/dL (70-99) Assessment and Plan Assessmemt and Plan Problems Medical Problems: (1) Person under investigation for COVID-19 Status: Acute Comment Review of Relevant I have reviewed the following items marcio (where applicable) has been applied. Labs Laboratory Tests Test 01/14/21 11:48 01/14/21 17:18 01/14/21 20:16 01/15/21 06:15 Glucose (Fingerstick) 95 mg/dL (70-99) 85 mg/dL (70-99) 96 mg/dL (70-99) White Blood Count 7.4 x10^3/uL (4.0-11.0) Red Blood Count 2.65 x10^6/uL (3.50-5.40) Hemoglobin 8.6 g/dL (12.0-15.5) Hematocrit 24.9 % (36.0-47.0) Mean Corpuscular Volume 94 fL (79-100) Mean Corpuscular Hemoglobin 32 pg (25-35) Mean Corpuscular Hemoglobin Concent 34 g/dL (31-37) Red Cell Distribution Width 14.6 % (11.5-14.5) Platelet Count 126 x10^3/uL (140-400) Neutrophils (%) (Auto) 66 % (31-73) Lymphocytes (%) (Auto) 21 % (24-48) Monocytes (%) (Auto) 9 % (0-9) Eosinophils (%) (Auto) 2 % (0-3) Basophils (%) (Auto) 1 % (0-3) Neutrophils # (Auto) 4.9 x10^3/uL (1.8-7.7) Lymphocytes # (Auto) 1.6 x10^3/uL (1.0-4.8) Monocytes # (Auto) 0.7 x10^3/uL (0.0-1.1) Eosinophils # (Auto) 0.1 x10^3/uL (0.0-0.7) Basophils # (Auto) 0.1 x10^3/uL (0.0-0.2) Sodium Level 137 mmol/L (136-145) Potassium Level 4.0 mmol/L (3.5-5.1) Chloride Level 106 mmol/L (98-107) Carbon Dioxide Level 27 mmol/L (21-32) Anion Gap 4 (6-14) Blood Urea Nitrogen 3 mg/dL (7-20) Creatinine 0.6 mg/dL (0.6-1.0) Estimated GFR (Cockcroft-Gault) 98.8 BUN/Creatinine Ratio 5 (6-20) Glucose Level 88 mg/dL (70-99) Calcium Level 7.4 mg/dL (8.5-10.1) Total Bilirubin 0.5 mg/dL (0.2-1.0) Aspartate Amino Transf (AST/SGOT) 13 U/L (15-37) Alanine Aminotransferase (ALT/SGPT) 13 U/L (14-59) Alkaline Phosphatase 50 U/L (46-116) Total Protein 4.8 g/dL (6.4-8.2) Albumin 1.5 g/dL (3.4-5.0) Albumin/Globulin Ratio 0.5 (1.0-1.7) Test 01/15/21 07:36 01/15/21 11:48 01/15/21 16:44 01/15/21 20:11 Glucose (Fingerstick) 98 mg/dL (70-99) 98 mg/dL (70-99) 116 mg/dL (70-99) 113 mg/dL (70-99) Test 01/16/21 08:05 Glucose (Fingerstick) 105 mg/dL (70-99) Laboratory Tests Test 01/15/21 11:48 01/15/21 16:44 01/15/21 20:11 01/16/21 08:05 Glucose (Fingerstick) 98 mg/dL (70-99) 116 mg/dL (70-99) 113 mg/dL (70-99) 105 mg/dL (70-99) Microbiology 01/01/21 Urine Culture - Final, Complete 01/01/21 Antimicrobic Susceptibility - Final, Complete 01/01/21 Blood Culture - Final, Complete NO GROWTH AFTER 5 DAYS Medications Current Medications Acetaminophen (Tylenol) 1,000 mg 1X ONCE PO Last administered on 01/01/21at 06:22; Start 01/01/21 at 03:00; Stop 01/01/21 at 03:01; Status DC Ondansetron HCl (Zofran) 4 mg 1X ONCE IVP Last administered on 01/01/21at 03:19; Start 01/01/21 at 03:30; Stop 01/01/21 at 03:33; Status DC Ondansetron HCl (Zofran) 4 mg STK-MED ONCE .ROUTE ; Start 01/01/21 at 03:17; Stop 01/01/21 at 03:17; Status DC Iohexol (Omnipaque 350 Mg/ml) 100 ml 1X ONCE IV Last administered on 01/01/21at 04:02; Start 01/01/21 at 04:30; Stop 01/01/21 at 04:31; Status DC Info (CONTRAST GIVEN -- Rx MONITORING) 1 each PRN DAILY PRN MC SEE COMMENTS; Start 01/01/21 at 04:00; Stop 01/03/21 at 03:59; Status DC Ondansetron HCl (Zofran) 4 mg 1X ONCE IVP Last administered on 01/01/21at 04:15; Start 01/01/21 at 05:00; Stop 01/01/21 at 05:01; Status DC Dexamethasone Sodium Phosphate (Decadron) 10 mg 1X ONCE IV Last administered on 01/01/21at 04:34; Start 01/01/21 at 05:00; Stop 01/01/21 at 05:01; Status DC Doxycycline Hyclate 100 mg/ Dextrose 100 ml @ 50 mls/hr 1X ONCE IV Last administered on 01/01/21at 05:15; Start 01/01/21 at 05:00; Stop 01/01/21 at 06:59; Status DC Ceftriaxone Sodium (Rocephin) 1 gm 1X ONCE IVP Last administered on 01/01/21at 04:34; Start 01/01/21 at 05:00; Stop 01/01/21 at 05:01; Status DC Ondansetron HCl (Zofran) 4 mg PRN Q6HRS PRN IVP NAUSEA/VOMITING 1ST CHOICE Last administered on 01/06/21at 12:39; Start 01/01/21 at 06:15 Magnesium Sulfate/ Dextrose 100 ml @ 100 mls/hr 1X ONCE IV Last administered on 01/01/21at 08:07; Start 01/01/21 at 08:00; Stop 01/01/21 at 09:12; Status DC Potassium Phosphate 13.6 mmol/Sodium Chloride 254.5333 ml @ 127.... Q2H IV Last administered on 01/01/21at 15:24; Start 01/01/21 at 09:00; Stop 01/01/21 at 12:59; Status DC Dexamethasone Sodium Phosphate (Decadron) 6 mg DAILY IVP Last administered on 01/06/21at 09:06; Start 01/02/21 at 09:00; Stop 01/06/21 at 15:32; Status DC Remdesivir 200 mg/ Sodium Chloride 210 ml @ 210 mls/hr 1X ONCE IV Last admini stered on 01/01/21at 12:48; Start 01/01/21 at 09:00; Stop 01/01/21 at 09:59; Status DC Remdesivir 100 mg/ Sodium Chloride 230 ml @ 460 mls/hr Q24H IV Last administered on 01/02/21at 10:39; Start 01/02/21 at 09:00; Stop 01/03/21 at 04:16; Status DC Acetaminophen (Tylenol) 650 mg PRN Q4HRS PRN PO TEMP OVER 100.4F Last administered on 01/06/21at 21:43; Start 01/01/21 at 08:30 Amlodipine Besylate (Norvasc) 2.5 mg DAILY PO Last administered on 01/01/21at 09:40; Start 01/01/21 at 09:00; Stop 01/02/21 at 08:35; Status DC Citalopram Hydrobromide (CeleXA) 20 mg DAILY PO Last administered on 01/16/21at 08:15; Start 01/01/21 at 09:00 Lisinopril (Prinivil) 20 mg DAILY PO Last administered on 01/06/21at 09:08; Start 01/01/21 at 09:00; Stop 01/06/21 at 11:43; Status DC Nystatin (Nystop) 1 kia BID TP Last administered on 01/16/21at 08:16; Start 01/01/21 at 09:00 Olanzapine (ZyPREXA ZYDIS) 5 mg PRN BID PRN PO ANXIETY / AGITATION; Start 01/01/21 at 08:30 Trazodone HCl (Desyrel) 50 mg QHS PO Last administered on 01/15/21at 22:06; Start 01/01/21 at 21:00 Non-Formulary Medication (Ipratropium/ Albuterol Sulfate (Combivent Respimat Inhal)) 2 inh QID IH ; Start 01/01/21 at 09:00; Status UNV Insulin Human Lispro (HumaLOG) 0-9 UNITS TIDWMEALS SQ Last administered on 01/11/21at 13:01; Start 01/01/21 at 12:00 Dextrose (Dextrose 50%-Water Syringe) 12.5 gm PRN Q15MIN PRN IV SEE COMMENTS Last administered on 01/13/21at 13:28; Start 01/01/21 at 08:30 Zinc Sulfate (Orazinc) 220 mg DAILY PO Last administered on 01/16/21 08:14; Start 01/01/21 at 09:00 Thiamine Mononitrate (Vitamin B-1) 100 mg DAILY PO Last administered on 01/16/21 08:14; Start 01/01/21 at 09:00 Guaifenesin (Robitussin Dm) 10 ml PRN Q6HRS PRN PO COUGH Last administered on 01/04/21at 09:13; Start 01/01/21 at 08:30 Enoxaparin Sodium (Lovenox 40mg Syringe) 40 mg Q12HR SQ Last administered on 01/10/21at 21:41; Start 01/01/21 at 09:00; Stop 01/11/21 at 15:03; Status DC Amlodipine Besylate (Norvasc) 5 mg DAILY PO Last administered on 01/06/21 09:06; Start 01/02/21 at 09:00; Stop 01/06/21 at 11:43; Status DC Sodium Chloride 1,000 ml @ 75 mls/hr 1X ONCE IV Last administered on 01/02/21at 10:39; Start 01/02/21 at 09:00; Stop 01/02/21 at 22:19; Status DC Remdesivir 100 mg/ Sodium Chloride 230 ml @ 460 mls/hr Q24H IV Last admi nistered on 01/06/21at 09:34; Start 01/03/21 at 09:00; Stop 01/06/21 at 09:29; Status DC Hydralazine HCl (Apresoline Inj) 10 mg PRN Q4HRS PRN IVP ELEVATED BP, SEE COMMENTS Last administered on 01/04/21at 00:17; Start 01/03/21 at 06:15 Ceftriaxone Sodium (Rocephin) 1 gm Q24H IVP Last administered on 01/09/21at 17:45; Start 01/03/21 at 16:00; Stop 01/09/21 at 16:01; Status DC Insulin Glargine (Lantus Syringe) 12 unit QHS SQ Last administered on 01/13/21at 22:15; Start 01/05/21 at 21:00; Stop 01/14/21 at 11:53; Status DC Lactobacillus Rhamnosus (Culturelle) 1 cap BID PO Last administered on 01/16/21at 08:14; Start 01/05/21 at 21:00 Insulin Human Lispro (HumaLOG) 7 units 1X ONCE SQ Last administered on 01/05/21at 17:30; Start 01/05/21 at 17:15; Stop 01/05/21 at 17:16; Status DC Amlodipine Besylate (Norvasc) 2.5 mg DAILY PO Last administered on 01/16/21at 08:15; Start 01/07/21 at 09:00 Lisinopril (Prinivil) 5 mg DAILY PO Last administered on 01/16/21at 08:16; Start 01/07/21 at 09:00 Dexamethasone (Decadron) 4 mg [id number] PO Last administered on 01/10/21at 09:11; Start 01/07/21 at 08:00; Stop 01/13/21 at 07:59; Status DC Insulin Human Lispro (HumaLOG) 9 units 1X ONCE SQ Last administered on 01/06/21at 17:25; Start 01/06/21 at 17:15; Stop 01/06/21 at 17:16; Status DC Insulin Human Lispro (HumaLOG) 5 units TIDAC SQ Last administered on 01/11/21at 12:59; Start 01/07/21 at 07:30 Sodium Chloride 1,000 ml @ 75 mls/hr [id number] IV Last administered on 01/13/21at 02:37; Start 01/08/21 at 00:15; Stop 01/14/21 at 10:37; Status DC Pantoprazole Sodium 40 mg/ Sodium Chloride 100 ml @ 10 mls/hr Q10H IV ; Start 01/11/21 at 11:00; Stop 01/11/21 at 11:03; Status DC Pantoprazole Sodium 80 mg/ Sodium Chloride 100 ml @ 10 mls/hr Q10H IV Last administered on 01/14/21at 00:05; Start 01/11/21 at 11:30; Stop 01/14/21 at 10:29; Status DC Sodium Chloride 500 ml @ 500 mls/hr 1X ONCE IV Last administered on 01/11/21at 11:15; Start 01/11/21 at 11:15; Stop 01/11/21 at 12:14; Status DC Pantoprazole Sodium (PROTONIX VIAL for IV PUSH) 80 mg 1X ONCE IVP Last administered on 01/11/21at 11:28; Start 01/11/21 at 11:15; Stop 01/11/21 at 11:16; Status DC Dextrose/Sodium Chloride 1,000 ml @ 50 mls/hr Q20H IV Last administered on 01/15/21at 22:09; Start 01/13/21 at 04:45 Pantoprazole Sodium (Protonix) 40 mg BIDAC PO Last administered on 01/16/21at 08:14; Start 01/14/21 at 16:30 Potassium Chloride/Water 100 ml @ 100 mls/hr Q1H IV Last administered on 01/14/21at 16:23; Start 01/14/21 at 15:00; Stop 01/14/21 at 16:59; Status DC Active Scripts Active Amlodipine Besylate 5 Mg Tablet 2.5 Mg PO DAILY 30 Days Cholestyramine Light Packet (Cholestyramine/Aspartame) 4 Gm Powd.pack 4 Gm PO QIDPMEDS 7 Days Vancomycin Hcl 500 Mg Vial 125 Mg PO QID 14 Days Admelog (Insulin Lispro) 100 Unit/1 Ml Vial 0 Units SQ TIDWMEALS 30 Days Culturelle (Lactobacillus Rhamnosus Gg) 1 Each Cap.sprink 1 Cap PO BID 30 Days Metamucil Fiber Singles Packet (Psyllium Husk/Aspartame) 3.4 Gm Powd.pack 1 Pkt PO QHS 30 Days Dok (Docusate Sodium) 100 Mg Capsule 100 Mg PO PRN BID PRN 30 Days Olanzapine Odt (Olanzapine) 5 Mg Tab.rapdis 5 Mg PO PRN BID PRN 14 Days Tylenol (Acetaminophen) 325 Mg Tablet 650 Mg PO PRN Q4HRS PRN 30 Days Combivent Respimat Inhal (Ipratropium/Albuterol Sulfate) 4 Gm Aer.w.adap 2 Inh IH QID 30 Days Reported Viberzi (Eluxadoline) 75 Mg Tablet 75 Mg PO BID Trazodone Hcl 50 Mg Tablet 1 Tab PO QHS Celexa (Citalopram Hydrobromide) 20 Mg Tablet 1 Tab PO DAILY Zofran (Ondansetron Hcl) 4 Mg Tablet 1 Tab PO PRN Q4HRS PRN Lisinopril 20 Mg Tablet 1 Tab PO DAILY Nystatin 15 Gm Powder 1 Kia TP BID Vesicare (Solifenacin Succinate) 10 Mg Tablet 1 Tab PO DAILY Flomax (Tamsulosin Hcl) 0.4 Mg Cap.er.24h 1 Cap PO HS Vitals/I & O Vital Sign - Last 24 Hours 01/15/21 01/15/21 01/15/21 01/15/21 10:42 15:00 19:41 21:00 Temp 98.2 98.1 98.7 98.2 98.1 98.7 Pulse 83 80 85 Resp 18 18 20 B/P (MAP) 136/67 (90) 130/64 (86) 137/53 (81) Pulse Ox 96 94 99 O2 Delivery Nasal Cannula Nasal Cannula Nasal Cannula Nasal Cannula O2 Flow Rate 4.0 4.0 4.0 4.0 01/15/21 01/16/21 01/16/21 01/16/21 23:12 03:07 07:00 08:00 Temp 99.6 99.1 98.7 99.6 99.1 98.7 Pulse 92 86 85 Resp 18 16 18 B/P (MAP) 137/66 (89) 133/70 (91) 119/67 (84) Pulse Ox 94 94 93 O2 Delivery Nasal Cannula Nasal Cannula Nasal Cannula Nasal Cannula O2 Flow Rate 4.0 4.0 4.0 4.0 01/16/21 01/16/21 08:15 08:16 Pulse 85 85 B/P (MAP) 119/67 119/67 Intake and Output 01/15/21 01/15/21 01/16/21 15:00 23:00 07:00 Intake Total 270 ml 1220 ml 60 ml Balance 270 ml 1220 ml 60 ml Justicifation of Admission Dx: Justifications for Admission: Justification of Admission Dx: N/A ABHISHEK DANIELSON MD Jan 16, 2021 10:07
[2021-01-16 11:00] VITALS: BP 124/73
--- NOTE | 2021-01-16 11:28 | NUR ---
[facility] following. Discussed with RN, pt on 4L (does not use oxygen at home), COVID-19 positive. Blood gas needed to determine if home oxygen is needed since pt is bed bound. Awaiting this for discharge. Plan is to return home with family. [facility] will continue to follow. Addendum: 01/16/21 at 1430 by MIRLANDE GRAY [facility] spoke with pt's daughter, Viky - she wants the same oxygen company as her daughter ([employer]). Referral faxed to [employer]. Stretcher transportation arranged with [facility] for 1530. RN and family notified.
[2021-01-16 12:10] LABS: BASE EXCESS ABG 1 mmol/L (-3-3); HCO3 ABG 25 mmol/L (21-28); PCO2 ABG 36 mmHg (35-46); SAT O2 ABG 86 % (92-99)
[2021-01-16 12:16] LABS: FIO2 ABG 21; PO2 ABG 47 mmHg (65-108)
--- NOTE | 2021-01-16 12:18 | NUR ---
Obtained room air ABG since patient isn't ambulatory - results of Po2 of 47 SaO2 86% given to Dr. Molina Mcfadden verbally
[2021-01-16] MEDS: IV DEXTROSE 5 %-0.45 % NACL 1,000 ML IV SCH (12:45)
--- NOTE | 2021-01-16 12:52 | PDOC3 ---
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 Patient has been sick with Covid type symptoms for the past week with shortness of breath, progressive weakness large amounts of diarrhea that are foul-smelling decreased appetite. History provided by patient's daughter via phone notes the entire family is isolating at home from being Covid positive, patient is able to say her right leg hurts but otherwise despite hearing amplification does not give any other history and most of the history is given. Daughter over the telephone. Baseline mentation status currently of alert and oriented x1. 2 family member tested positive for Covid19 approximately 1 week ago. Patient is not vaccinated. EMS noted patient's oxygen saturation was 82% and was placed on 4 L nasal cannula with improvement of O2 sats to 92 to 93% consults GI D/C CONDITION GUARDED HOME WITH HOME HEALTH O2 4 LITERS NC discharge dx Chief Complaint impression ========= Acute respiratory failure with hypoxia- due to COVID-19 Diarrhea Sepsis UTI History of diabetes mellitus type 2 History of Hypertension COPD S/P Right AKA Debilitated Hypophosphatemia Gluteal Ulcer Concern for caregiver burden History of Present Illness History of Present Illness Ms Alexis is a 70yo F w/ PMHx COPD, Diabetes-Type II, GERD, Hypertension, [place], dementia, 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 Patient has been sick with Covid type symptoms for the past week with shortness of breath, progressive weakness large amounts of diarrhea that are foul-smelling decreased appetite. History provided by patient's daughter via phone notes the entire family is isolating at home from being Covid positive, patient is able to say her right leg hurts but otherwise despite hearing amplification does not give any other history and most of the history is given. Daughter over the telephone. Baseline mentation status currently of alert and oriented x1. 2 family member tested positive for Covid19 approximately 1 week ago. Patient is not vaccinated. EMS noted patient's oxygen saturation was 82% and was placed on 4 L nasal cannula with improvement of O2 sats to 92 to 93%. CTA chest abdomen pelvis with bilateral pulmonary opacities and colitis, no abscess noted. Negative for pulmonary embolism WBC 11.3, Hb 12.7, platelets 195, D-dimer 6.32, NA 139, K3 0.9 mmol BUN 16, CR 0.4 glucose 135 calcium 8.1, Phos 1.9, magnesium 1.9, bilirubin 0.5, AST 100, ALT 28, alk phos 129 NT proBNP 1114, albumin 2.3, lactic acid 1.2, rapid flu negative urinalysis with small leuk esterase. Rapid COVID 19 positive Admitted for further care 01/02: Still hypoxic poor appetite. Replaced phos and lost IV access and unable to keep getting better IV access does need remdesivir and IV steroids. S/p PICC 01/03: Labs slightly improved. Still hypoxic. No complaints. PICC working well. Still requiring 4 L nasal cannula oxygen with O2 saturations 80 to 94%. 01/04: 7 L nasal cannula today with saturations 96%. Appetite low. AST down to 47. tolerating meds well. Still feeling miserable 01/05: Afebrile. O2 saturations 92% on 7 L nasal cannula. Still with poor appetite. Glucose running in the upper to mid 300s. AST down to 47. Tolerating meds well. Day 4 of remdesivir today 01/06: Afebrile. Still requiring 2 L nasal cannula oxygen. Creatinine bumped to 1.1. Blood pressure low side reduce her lisinopril and amlodipine. Poor appetite. Remdesivir day 5 today. 01/07: Patient seen and examined. Discussed with RN. Chart reviewed. 01/08: Patient seen and examined. Blood pressure has been slightly elevated today. Glucose continues to be elevated (120-145 ) but has trended down since admission. Discussed with RN. Chart reviewed. 01/09: Patient seen and examined. Blood pressure continues to be slightly elevated. Glucose continues to be elevated (127-252), and is higher than yesterday. Discussed with RN. Chart reviewed. 01/10: Patient seen and examined. Acute mild decrease in RBC, Hct, and Hgb indicated on 01/10 labs. Discussed with RN. Chart reviewed. 01/11: Patient seen and examined. Discussed with RN. Chart reviewed. Appeared in acute moderate distress with heavy breathing. Patient had 2 episodes of melena. Labs at 5:00AM showed markedly decreased RBC (2.39) and Hgb (7.4), repeat HNH at 10:00AM showed continued decline to Hgb 6.6.. Saline bolus was given, and blood was typed for anticipated transfusion. GI called for consult. 01/12: Patient seen and examined. Discussed with RN. Chart reviewed. Patient resting in no acute distress. Discussed code status with daughter, patient is now DNR. 01/13: Patient seen and examined. Discussed with RN. Chart reviewed. Patient was resting with NAD. Hgb has decreased from 10.4 yesterday to 8.7 today. 01/14: seen and examined. Discussed with RN. Chart reviewed. Patient was resting with NAD. Hgb has decreased from 10.4 yesterday to 8.7 8-29 Anemia Hgb downto 8.7 from 10.4 melena Cont PPI Moniotr Hgb diet clears GI CONSULT // Observe for recurrent bleeding, transfuse as needed to keep Hgb > 7. 01/15: seen and examined. Discussed with RN. Chart reviewed. Patient was resting with NAD. Hgb has decreased from 10.4 yesterday to 8.7 8-29 Anemia Hgb downto 8.7 from 10.4 melena Cont PPI Moniotr Hgb diet clears D/W RN GI CONSULT // Observe for recurrent bleeding, transfuse as needed to keep Hgb > 7. Melena/suspected UGI bleed - resolved HGB 8.6 01/16: seen and examined. Discussed with RN. Chart reviewed. Patient was resting with NAD. Hgb has stabilized Anemia Hgb downto 8.7 from 10.4 melena Cont PPI Moniotr Hgb diet clears D/W RN GI CONSULT // Observe for recurrent bleeding, transfuse as needed to keep Hgb > 7. Melena/suspected UGI bleed - resolved HGB 8.6 home o2 2 l nc Stable GI-gonzales.per gi continue PPI. d/c planning 35 min Vitals Vitals Vital Signs Date Time Temp Pulse Resp B/P (MAP) Pulse Ox O2 Delivery O2 Flow Rate FiO2 01/16/21 08:16 85 119/67 01/16/21 08:00 Nasal Cannula 4.0 01/16/21 07:00 98.7 18 93 98.7 Physical Exam General: Alert, Cooperative, No acute distress Heart: Regular rate, Normal S1 Lungs: Clear, Other (Bilateral wheezes heard over all lung posts) Abdomen: Normal bowel sounds, Soft, No tenderness, No hepatosplenomegaly, No masses, Other (Hyperactive bowel sounds) Extremities: No cyanosis, No edema, Other (Right AKA stump with redness, ulcer, minimal skin breakdown) Skin: Other (Gluteal and right AKA ulcers) Labs LABS Laboratory Tests Test 01/15/21 11:48 01/15/21 16:44 01/15/21 20:11 01/16/21 08:05 Glucose (Fingerstick) 98 mg/dL (70-99) 116 mg/dL (70-99) 113 mg/dL (70-99) 105 mg/dL (70-99) Assessment and Plan Assessmemt and Plan Problems Medical Problems: (1) Person under investigation for COVID-19 Status: Acute FINAL DIAGNOSIS Problems Medical Problems: (1) Person under investigation for COVID-19 Status: Acute Brief Hospital Course Ms. Alexis is a 70 old [sex] who presented with [ ] CONDITION AT DISCHARGE: Improved Discharge Medications Current Medications Acetaminophen (Tylenol) 1,000 mg 1X ONCE PO Last administered on 01/01/21at 06:22; Start 01/01/21 at 03:00; Stop 01/01/21 at 03:01; Status DC Ondansetron HCl (Zofran) 4 mg 1X ONCE IVP Last administered on 01/01/21at 03:19; Start 01/01/21 at 03:30; Stop 01/01/21 at 03:33; Status DC Ondansetron HCl (Zofran) 4 mg STK-MED ONCE .ROUTE ; Start 01/01/21 at 03:17; Stop 01/01/21 at 03:17; Status DC Iohexol (Omnipaque 350 Mg/ml) 100 ml 1X ONCE IV Last administered on 01/01/21at 04:02; Start 01/01/21 at 04:30; Stop 01/01/21 at 04:31; Status DC Info (CONTRAST GIVEN -- Rx MONITORING) 1 each PRN DAILY PRN MC SEE COMMENTS; Start 01/01/21 at 04:00; Stop 01/03/21 at 03:59; Status DC Ondansetron HCl (Zofran) 4 mg 1X ONCE IVP Last administered on 01/01/21at 04:15; Start 01/01/21 at 05:00; Stop 01/01/21 at 05:01; Status DC Dexamethasone Sodium Phosphate (Decadron) 10 mg 1X ONCE IV Last administered on 01/01/21at 04:34; Start 01/01/21 at 05:00; Stop 01/01/21 at 05:01; Status DC Doxycycline Hyclate 100 mg/ Dextrose 100 ml @ 50 mls/hr 1X ONCE IV Last administered on 01/01/21at 05:15; Start 01/01/21 at 05:00; Stop 01/01/21 at 06:59; Status DC Ceftriaxone Sodium (Rocephin) 1 gm 1X ONCE IVP Last administered on 01/01/21at 04:34; Start 01/01/21 at 05:00; Stop 01/01/21 at 05:01; Status DC Ondansetron HCl (Zofran) 4 mg PRN Q6HRS PRN IVP NAUSEA/VOMITING 1ST CHOICE Last administered on 01/06/21at 12:39; Start 01/01/21 at 06:15 Magnesium Sulfate/ Dextrose 100 ml @ 100 mls/hr 1X ONCE IV Last administered on 01/01/21at 08:07; Start 01/01/21 at 08:00; Stop 01/01/21 at 09:12; Status DC Potassium Phosphate 13.6 mmol/Sodium Chloride 254.5333 ml @ 127.... Q2H IV Last administered on 01/01/21at 15:24; Start 01/01/21 at 09:00; Stop 01/01/21 at 12:59; Status DC Dexamethasone Sodium Phosphate (Decadron) 6 mg DAILY IVP Last administered on 01/06/21at 09:06; Start 01/02/21 at 09:00; Stop 01/06/21 at 15:32; Status DC Remdesivir 200 mg/ Sodium Chloride 210 ml @ 210 mls/hr 1X ONCE IV Last administered on 01/01/21at 12:48; Start 01/01/21 at 09:00; Stop 01/01/21 at 09:59; Status DC Remdesivir 100 mg/ Sodium Chloride 230 ml @ 460 mls/hr Q24H IV Last administered on 01/02/21at 10:39; Start 01/02/21 at 09:00; Stop 01/03/21 at 04:16; Status DC Acetaminophen (Tylenol) 650 mg PRN Q4HRS PRN PO TEMP OVER 100.4F Last administered on 01/06/21at 21:43; Start 01/01/21 at 08:30 Amlodipine Besylate (Norvasc) 2.5 mg DAILY PO Last administered on 01/01/21at 09:40; Start 01/01/21 at 09:00; Stop 01/02/21 at 08:35; Status DC Citalopram Hydrobromide (CeleXA) 20 mg DAILY PO Last administered on 01/16/21at 08:15; Start 01/01/21 at 09:00 Lisinopril (Prinivil) 20 mg DAILY PO Last administered on 01/06/21at 09:08; Start 01/01/21 at 09:00; Stop 01/06/21 at 11:43; Status DC Nystatin (Nystop) 1 kia BID TP Last administered on 01/16/21at 08:16; Start 01/01/21 at 09:00 Olanzapine (ZyPREXA ZYDIS) 5 mg PRN BID PRN PO ANXIETY / AGITATION; Start 01/01/21 at 08:30 Trazodone HCl (Desyrel) 50 mg QHS PO Last administered on 01/15/21at 22:06; Start 01/01/21 at 21:00 Non-Formulary Medication (Ipratropium/ Albuterol Sulfate (Combivent Respimat Inhal)) 2 inh QID IH ; Start 01/01/21 at 09:00; Status UNV Insulin Human Lispro (HumaLOG) 0-9 UNITS TIDWMEALS SQ Last administered on 01/11/21at 13:01; Start 01/01/21 at 12:00 Dextrose (Dextrose 50%-Water Syringe) 12.5 gm PRN Q15MIN PRN IV SEE COMMENTS Last administered on 8/29/21at 13:28; Start 01/01/21 at 08:30 Zinc Sulfate (Orazinc) 220 mg DAILY PO Last administered on 01/16/21at 08:14; Start 01/01/21 at 09:00 Thiamine Mononitrate (Vitamin B-1) 100 mg DAILY PO Last administered on 01/16/21at 08:14; Start 01/01/21 at 09:00 Guaifenesin (Robitussin Dm) 10 ml PRN Q6HRS PRN PO COUGH Last administered on 01/04/21at 09:13; Start 01/01/21 at 08:30 Enoxaparin Sodium (Lovenox 40mg Syringe) 40 mg Q12HR SQ Last administered on 01/10/21at 21:41; Start 01/01/21 at 09:00; Stop 01/11/21 at 15:03; Status DC Amlodipine Besylate (Norvasc) 5 mg DAILY PO Last administered on 01/06/21at 09:06; Start 01/02/21 at 09:00; Stop 01/06/21 at 11:43; Status DC Sodium Chloride 1,000 ml @ 75 mls/hr 1X ONCE IV Last administered on 01/02/21at 10:39; Start 01/02/21 at 09:00; Stop 01/02/21 at 22:19; Status DC Remdesivir 100 mg/ Sodium Chloride 230 ml @ 460 mls/hr Q24H IV Last admin istered on 01/06/21at 09:34; Start 01/03/21 at 09:00; Stop 01/06/21 at 09:29; Status DC Hydralazine HCl (Apresoline Inj) 10 mg PRN Q4HRS PRN IVP ELEVATED BP, SEE COMMENTS Last administered on 01/04/21at 00:17; Start 01/03/21 at 06:15 Ceftriaxone Sodium (Rocephin) 1 gm Q24H IVP Last administered on 01/09/21at 17:45; Start 01/03/21 at 16:00; Stop 01/09/21 at 16:01; Status DC Insulin Glargine (Lantus Syringe) 12 unit QHS SQ Last administered on 01/13/21at 22:15; Start 01/05/21 at 21:00; Stop 01/14/21 at 11:53; Status DC Lactobacillus Rhamnosus (Culturelle) 1 cap BID PO Last administered on 01/16/21at 08:14; Start 01/05/21 at 21:00 Insulin Human Lispro (HumaLOG) 7 units 1X ONCE SQ Last administered on 01/05/21at 17:30; Start 01/05/21 at 17:15; Stop 01/05/21 at 17:16; Status DC Amlodipine Besylate (Norvasc) 2.5 mg DAILY PO Last administered on 01/16/21at 08:15; Start 01/07/21 at 09:00 Lisinopril (Prinivil) 5 mg DAILY PO Last administered on 01/16/21at 08:16; Start 01/07/21 at 09:00 Dexamethasone (Decadron) 4 mg [id number] PO Last administered on 01/10/21at 09:11; Start 01/07/21 at 08:00; Stop 01/13/21 at 07:59; Status DC Insulin Human Lispro (HumaLOG) 9 units 1X ONCE SQ Last administered on 01/06/21at 17:25; Start 01/06/21 at 17:15; Stop 01/06/21 at 17:16; Status DC Insulin Human Lispro (HumaLOG) 5 units TIDAC SQ Last administered on 01/11/21at 12:59; Start 01/07/21 at 07:30 Sodium Chloride 1,000 ml @ 75 mls/hr [id number] IV Last administered on 01/13/21at 02:37; Start 01/08/21 at 00:15; Stop 01/14/21 at 10:37; Status DC Pantoprazole Sodium 40 mg/ Sodium Chloride 100 ml @ 10 mls/hr Q10H IV ; Start 01/11/21 at 11:00; Stop 01/11/21 at 11:03; Status DC Pantoprazole Sodium 80 mg/ Sodium Chloride 100 ml @ 10 mls/hr Q10H IV Last administered on 01/14/21at 00:05; Start 01/11/21 at 11:30; Stop 01/14/21 at 10:29; Status DC Sodium Chloride 500 ml @ 500 mls/hr 1X ONCE IV Last administered on 01/11/21at 11:15; Start 01/11/21 at 11:15; Stop 01/11/21 at 12:14; Status DC Pantoprazole Sodium (PROTONIX VIAL for IV PUSH) 80 mg 1X ONCE IVP Last administered on 01/11/21at 11:28; Start 01/11/21 at 11:15; Stop 01/11/21 at 11:16; Status DC Dextrose/Sodium Chloride 1,000 ml @ 50 mls/hr Q20H IV Last administered on 01/15/21at 22:09; Start 01/13/21 at 04:45 Pantoprazole Sodium (Protonix) 40 mg BIDAC PO Last administered on 01/16/21at 08:14; Start 01/14/21 at 16:30 Potassium Chloride/Water 100 ml @ 100 mls/hr Q1H IV Last administered on 01/14/21at 16:23; Start 01/14/21 at 15:00; Stop 01/14/21 at 16:59; Status DC Active Scripts Active Amlodipine Besylate 5 Mg Tablet 2.5 Mg PO DAILY 30 Days Cholestyramine Light Packet (Cholestyramine/Aspartame) 4 Gm Powd.pack 4 Gm PO QIDPMEDS 7 Days Vancomycin Hcl 500 Mg Vial 125 Mg PO QID 14 Days Admelog (Insulin Lispro) 100 Unit/1 Ml Vial 0 Units SQ TIDWMEALS 30 Days Culturelle (Lactobacillus Rhamnosus Gg) 1 Each Cap.sprink 1 Cap PO BID 30 Days Metamucil Fiber Singles Packet (Psyllium Husk/Aspartame) 3.4 Gm Powd.pack 1 Pkt PO QHS 30 Days Dok (Docusate Sodium) 100 Mg Capsule 100 Mg PO PRN BID PRN 30 Days Olanzapine Odt (Olanzapine) 5 Mg Tab.rapdis 5 Mg PO PRN BID PRN 14 Days Tylenol (Acetaminophen) 325 Mg Tablet 650 Mg PO PRN Q4HRS PRN 30 Days Combivent Respimat Inhal (Ipratropium/Albuterol Sulfate) 4 Gm Aer.w.adap 2 Inh IH QID 30 Days Reported Viberzi (Eluxadoline) 75 Mg Tablet 75 Mg PO BID Trazodone Hcl 50 Mg Tablet 1 Tab PO QHS Celexa (Citalopram Hydrobromide) 20 Mg Tablet 1 Tab PO DAILY Zofran (Ondansetron Hcl) 4 Mg Tablet 1 Tab PO PRN Q4HRS PRN Lisinopril 20 Mg Tablet 1 Tab PO DAILY Nystatin 15 Gm Powder 1 Kia TP BID Vesicare (Solifenacin Succinate) 10 Mg Tablet 1 Tab PO DAILY Flomax (Tamsulosin Hcl) 0.4 Mg Cap.er.24h 1 Cap PO HS Vital Signs Vital Signs Date Time Temp Pulse Resp B/P (MAP) Pulse Ox O2 Delivery O2 Flow Rate FiO2 01/16/21 11:00 99.5 107 18 124/73 (90) 95 Nasal Cannula 4.0 99.5 Labs Laboratory Tests Test 01/14/21 17:18 01/14/21 20:16 01/15/21 06:15 01/15/21 07:36 Glucose (Fingerstick) 85 mg/dL (70-99) 96 mg/dL (70-99) 98 mg/dL (70-99) White Blood Count 7.4 x10^3/uL (4.0-11.0) Red Blood Count 2.65 x10^6/uL (3.50-5.40) Hemoglobin 8.6 g/dL (12.0-15.5) Hematocrit 24.9 % (36.0-47.0) Mean Corpuscular Volume 94 fL (79-100) Mean Corpuscular Hemoglobin 32 pg (25-35) Mean Corpuscular Hemoglobin Concent 34 g/dL (31-37) Red Cell Distribution Width 14.6 % (11.5-14.5) Platelet Count 126 x10^3/uL (140-400) Neutrophils (%) (Auto) 66 % (31-73) Lymphocytes (%) (Auto) 21 % (24-48) Monocytes (%) (Auto) 9 % (0-9) Eosinophils (%) (Auto) 2 % (0-3) Basophils (%) (Auto) 1 % (0-3) Neutrophils # (Auto) 4.9 x10^3/uL (1.8-7.7) Lymphocytes # (Auto) 1.6 x10^3/uL (1.0-4.8) Monocytes # (Auto) 0.7 x10^3/uL (0.0-1.1) Eosinophils # (Auto) 0.1 x10^3/uL (0.0-0.7) Basophils # (Auto) 0.1 x10^3/uL (0.0-0.2) Sodium Level 137 mmol/L (136-145) Potassium Level 4.0 mmol/L (3.5-5.1) Chloride Level 106 mmol/L (98-107) Carbon Dioxide Level 27 mmol/L (21-32) Anion Gap 4 (6-14) Blood Urea Nitrogen 3 mg/dL (7-20) Creatinine 0.6 mg/dL (0.6-1.0) Estimated GFR (Cockcroft-Gault) 98.8 BUN/Creatinine Ratio 5 (6-20) Glucose Level 88 mg/dL (70-99) Calcium Level 7.4 mg/dL (8.5-10.1) Total Bilirubin 0.5 mg/dL (0.2-1.0) Aspartate Amino Transf (AST/SGOT) 13 U/L (15-37) Alanine Aminotransferase (ALT/SGPT) 13 U/L (14-59) Alkaline Phosphatase 50 U/L (46-116) Total Protein 4.8 g/dL (6.4-8.2) Albumin 1.5 g/dL (3.4-5.0) Albumin/Globulin Ratio 0.5 (1.0-1.7) Test 01/15/21 11:48 01/15/21 16:44 01/15/21 20:11 01/16/21 08:05 Glucose (Fingerstick) 98 mg/dL (70-99) 116 mg/dL (70-99) 113 mg/dL (70-99) 105 mg/dL (70-99) Test 01/16/21 12:12 01/16/21 12:17 O2 Saturation 86 % (92-99) Arterial Blood pH 7.46 (7.35-7.45) Arterial Blood pCO2 at Patient Temp 36 mmHg (35-46) Arterial Blood pO2 at Patient Temp 47 mmHg (65-108) Arterial Blood HCO3 25 mmol/L (21-28) Arterial Blood Base Excess 1 mmol/L (-3-3) FiO2 21 Glucose (Fingerstick) 136 mg/dL (70-99) Laboratory Tests Test 01/15/21 16:44 01/15/21 20:11 01/16/21 08:05 01/16/21 12:12 Glucose (Fingerstick) 116 mg/dL (70-99) 113 mg/dL (70-99) 105 mg/dL (70-99) O2 Saturation 86 % (92-99) Arterial Blood pH 7.46 (7.35-7.45) Arterial Blood pCO2 at Patient Temp 36 mmHg (35-46) Arterial Blood pO2 at Patient Temp 47 mmHg (65-108) Arterial Blood HCO3 25 mmol/L (21-28) Arterial Blood Base Excess 1 mmol/L (-3-3) FiO2 21 Test 01/16/21 12:17 Glucose (Fingerstick) 136 mg/dL (70-99) Allergies Allergies Coded Allergies Type Severity Reaction Last Updated Verified codeine Allergy Intermediate TOLERATES MORPHINE 02/06/20 Yes I S O L A T I O N *CONTACT* Allergy Unknown 06/14/20 Yes meperidine Adverse Reaction Intermediate Nausea and Vomiting 02/06/20 Yes Disposition/Orders: D/C to Home w/ HH Justicifation of Admission Dx: Justifications for Admission: Justification of Admission Dx: N/A ABHISHEK DANIELSON MD Jan 16, 2021 12:52
[2021-01-16] MEDS ORDERED: LACT1CAP19 PO (12:57)
[2021-01-16] MEDS ORDERED: ZINC220C5 PO (12:57)
[2021-01-16] MEDS ORDERED: LISI-517 PO (12:57)
[2021-01-16] MEDS ORDERED: PANT40TA77 PO (12:57)
[2021-01-16] MEDS ORDERED: THIA100T22 PO (12:57)
[2021-01-16] MEDS ORDERED: GUAI5SYR PO (12:57)
[2021-01-16] MEDS ORDERED: INSU100V35 SQ ×2 (12:57)
--- NOTE | 2021-01-16 12:59 | SNU/HH DC ---
DISCHARGE WITH HOME HEALTH DISCHARGE INFORMATION: Discharge Date: Jan 16, 2021 Final Diagnosis: Problems Medical Problems: (1) Person under investigation for COVID-19 Status: Acute Condition on Discharge: Stable CODE STATUS: Code Status: Full HOME HEALTH: Face to Face: I certify this patient is under my care and that I, or a nurse practitioner or physician's physicians assistant working with me, had a face to face encounter that meets the physician face to face encounter requirements with this patient on []. 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 difficile PCR TREATMENT/EQUIPMENT ORDERS: Adaptive Equipment Issued: None, Front wheeled walker CERTIFICATION STATEMENT: Certification Statement: Certification Statement: Based on the above finding, I certify that this patient is confined to the home and needs intermittent mcfp care, physical therapy and/or speech therapy, or continues to need occupational therapy.~ This patient is under my care, and I have initiated the establishment of the plan of care.~ This patient will be followed by myself or a community physician who will periodically review the plan of care. Home Meds Active Scripts Thiamine Mononitrate (VITAMIN B-1) 100 Mg Tablet, 100 MG PO DAILY for SUPPLEMENT for 30 Days, #30 TAB Prov:ABHISHEK DANIELSON MD 01/16/21 Insulin Lispro (Admelog) 100 Unit/1 Ml Vial, 0 UNITS SQ TIDWMEALS for PER SS PROTOCOL for 14 Days, #1 EACH Prov:ABHISHEK DANIELSON MD 01/16/21 Insulin Lispro (Admelog) 100 Unit/1 Ml Vial, 5 UNITS SQ TIDAC for DIABETES for 30 Days, #2 EACH Prov:ABHISHEK DANIELSON MD 01/16/21 Lactobacillus Rhamnosus Gg (CULTURELLE) 1 Each Cap.sprink, 1 CAP PO BID for SUPPLEMENT for 30 Days, #60 CAP Prov:ABHISHEK DANIELSON MD 01/16/21 Pantoprazole Sodium (PANTOPRAZOLE SODIUM ) 40 Mg Tablet.dr, 40 MG PO BIDAC for GERD for 30 Days, #60 TAB.SR Prov:ABHISHEK DANIELSON MD 01/16/21 Guaifenesin/Dextromethorphan (GUAIFENESIN DM SYRUP) 5 Ml Syrup, 10 ML PO PRN Q6HRS PRN for COUGH for 14 Days, #240 MISC Prov:ABHISHEK DANIELSON MD 01/16/21 Zinc Sulfate (Zinc Sulfate) 50 Mg Capsule, 220 MG PO DAILY for SUPPLEMENT for 30 Days, #132 CAP Prov:ABHISHEK DANIELSON MD 01/16/21 Lisinopril (LISINOPRIL) 5 Mg Tablet, 5 MG PO DAILY for BLOOD PRESSURE for 30 Days, #30 TAB Prov:ABHISHEK DANIELSON MD 01/16/21 Amlodipine Besylate (AMLODIPINE BESYLATE) 5 Mg Tablet, 2.5 MG PO DAILY for htn for 30 Days, #15 TAB Prov:CASTLENIAL K III DO 09/17/20 Cholestyramine/Aspartame (CHOLESTYRAMINE LIGHT PACKET) 4 Gm Powd.pack, 4 GM PO QIDPMEDS for diarrhea for 7 Days, #28 PKT Prov:SHERIDAN HYLTON MD 06/21/20 Psyllium Husk/Aspartame (METAMUCIL FIBER SINGLES PACKET) 3.4 Gm Powd.pack, 1 PKT PO QHS for PREVENT CONSTIPATION for 30 Days, #30 PKT Prov:ABHISHEK DANIELSON MD 05/30/20 Docusate Sodium (DOK) 100 Mg Capsule, 100 MG PO PRN BID PRN for HARD STOOLS for 30 Days, #60 CAP Prov:ABHISHEK DANIELSON MD 05/30/20 Olanzapine (OLANZAPINE ODT) 5 Mg Tab.rapdis, 5 MG PO PRN BID PRN for ANXIETY / AGITATION for 14 Days, #30 TAB Prov:ABHISHEK DANIELSON MD 05/30/20 Acetaminophen (TYLENOL) 325 Mg Tablet, 650 MG PO PRN Q4HRS PRN for TEMP OVER 100.4F for 30 Days, #60 TAB Prov:ABHISHEK DANIELSON MD 05/30/20 Ipratropium/Albuterol Sulfate (COMBIVENT RESPIMAT INHAL) 4 Gm Aer.w.adap, 2 INH IH QID for breathing for 30 Days, #1 INHALER Prov:Yao HEATON MD 05/04/18 Reported Medications Eluxadoline (Viberzi) 75 Mg Tablet, 75 MG PO BID for stomach pain, TAB 05/29/20 Trazodone Hcl (TRAZODONE HCL) 50 Mg Tablet, 1 TAB PO QHS for insomnia, #30 TAB 1 Refill 05/26/20 Citalopram Hydrobromide (CELEXA) 20 Mg Tablet, 1 TAB PO DAILY for depression, #90 TAB 3 Refills 05/26/20 Ondansetron Hcl (ZOFRAN) 4 Mg Tablet, 1 TAB PO PRN Q4HRS PRN for NAUSEA, #20 TAB 05/26/20 Nystatin (NYSTATIN) 15 Gm Powder, 1 PAULETTE TP BID for yeast infection/skin folds, #1 BOTTLE 04/27/18 Solifenacin Succinate (VESICARE) 10 Mg Tablet, 1 TAB PO DAILY for bladder problem, #30 TAB 5 Refills 04/27/18 Tamsulosin Hcl (FLOMAX) 0.4 Mg Cap.er.24h, 1 CAP PO HS for bladder problem, #30 CAP 11 Refills 04/27/18 Discontinued Reported Medications Lisinopril (LISINOPRIL) 20 Mg Tablet, 1 TAB PO DAILY for HTN, #30 TAB 5 Refills 05/26/20 Discontinued Scripts Vancomycin Hcl (VANCOMYCIN HCL) 500 Mg Vial, 125 MG PO QID for c diff for 14 Days, #14 EACH Prov:SHERIDAN HYLTON MD 06/21/20 Insulin Lispro (Admelog) 100 Unit/1 Ml Vial, 0 UNITS SQ TIDWMEALS for DIABETES for 30 Days, #2 EACH Prov:ABHISHEK DANIELSON MD 05/30/20 Lactobacillus Rhamnosus Gg (CULTURELLE) 1 Each Cap.sprink, 1 CAP PO BID for SUPPLEMENT for 30 Days, #60 CAP Prov:ABHISHEK DANIELSON MD 05/30/20 ABHISHEK DANIELSON MD Jan 16, 2021 12:59
[2021-01-16 15:00] VITALS: BP 121/70
--- NOTE | 2021-01-16 16:11 | NUR ---
Discharge Note: ADRIANO MARSHALL J5 ATKINSON Discharge instructions and discharge home medications reviewed with the patient's daughter, Viky over the phone at 1609 and a copy given to SAY. All questions have been answered and understanding verbalized. The following instructions and handouts were given: Instructions regarding oxygen requirement, 4 liters via nC continuously. Home meds as directed, prescription sent electronically to the patient's pharmacy. Wound care, change dressing every 2 to 3 days. O2 tank sent with the patient. HH/Best choice ff up at home Follow up with PCP in weeks. Discontinued lines and drains: PICC in left upper arm removed, line intact, no complications noted. Patient discharged to home with via stretcher, on oxygen at 4LPM, accompanied by SAY at 1605.
== END 2021-01-16 16:05 | disposition home health service (06) | DRG 871 ==
LOC: ER 02:20 → ED HOLD 04:20 → 5 NORTH 05:38
PROVIDERS: ADMIT Internal Medicine; ATTEND Internal Medicine
PROC: 5A0935A Assistance with Respiratory Ventilation, Less than 24 Consecutive Hours, High Flow/Velocity Cannula (ICD-10-PCS; 2021-01-01)
PROC: 02H633Z Insertion of Infusion Device into Right Atrium, Percutaneous Approach (ICD-10-PCS; 2021-01-01)
PROC: XW033E5 Introduction of Remdesivir Anti-infective into Peripheral Vein, Percutaneous Approach, New Technology Group 5 (ICD-10-PCS; principal; 2021-01-03)
DX: A41.89 Other specified sepsis (principal); U07.1 COVID-19; J12.82 Pneumonia due to coronavirus disease 2019; J96.01 Acute respiratory failure with hypoxia; A04.71 Enterocolitis due to Clostridium difficile, recurrent; J44.0 Chronic obstructive pulmonary disease with (acute) lower respiratory infection; B95.62 Methicillin resistant Staphylococcus aureus infection as the cause of diseases classified elsewhere; D12.3 Benign neoplasm of transverse colon; D64.9 Anemia, unspecified; E83.39 Other disorders of phosphorus metabolism; F03.90 Unspecified dementia, unspecified severity, without behavioral disturbance, psychotic disturbance, mood disturbance, and anxiety; G89.29 Other chronic pain; I11.9 Hypertensive heart disease without heart failure; I25.10 Atherosclerotic heart disease of native coronary artery without angina pectoris; K21.9 Gastro-esophageal reflux disease without esophagitis; K43.9 Ventral hernia without obstruction or gangrene; K57.10 Diverticulosis of small intestine without perforation or abscess without bleeding; K57.30 Diverticulosis of large intestine without perforation or abscess without bleeding; K86.89 Other specified diseases of pancreas; L98.419 Non-pressure chronic ulcer of buttock with unspecified severity; M19.90 Unspecified osteoarthritis, unspecified site; M41.9 Scoliosis, unspecified; N28.1 Cyst of kidney, acquired; Z82.5 Family history of asthma and other chronic lower respiratory diseases; Z83.3 Family history of diabetes mellitus; Z89.611 Acquired absence of right leg above knee; Z90.49 Acquired absence of other specified parts of digestive tract; Z96.659 Presence of unspecified artificial knee joint; Z88.8 Allergy status to other drugs, medicaments and biological substances
CPT/HCPCS: 36415; 36430; 36569; 36600; 71045; 71275; 74177; 80053; 81001; 82805; 82962; 83605; 83735; 83880; 84100; 84484; 85007; 85014; 85018; 85025; 85027; 85379; 85610; 86850; 86900; 86901; 86922; 87040; 87077; 87086; 87186; 87426; 87493; 87804; 93005; 96365; 96366; 96367; 96375; 96376; C9113; J0360; J0696; J1100; J1650; J1815; J2405; J3475; J3480; J3490; J7030; J7040; J7042; J7050; J7060; P9016; Q9967; 99285-25; G0378